=== PATIENT | female | born 1940 | race Caucasian/White ===

== ENCOUNTER 2019-08-30 12:43 | Outpatient (CLI) | payer OTHER, SELFPAY ==
--- NOTE | ~2019-08-30 | DEXA_ITS ---
Bone Density Report Name: Jing Garcias Age: 79 Sex: Female Ethnicity: White Date of : 1940 Indication: postmenopausal; height loss; prior fracture; hysterectomy; Referring Provider: SREEKANTH [facility] Study: Bone densitometry was performed. Exam Date: August 29, 2019 Accession number: [id number] Bone Density: Region BMD T-score Z-score Classification AP Spine (L1-L4) 1.060 0.1 2.7 Normal Femoral Neck (Left) 0.722 -1.1 1.1 Osteopenia Total Hip (Left) 0.938 0.0 1.9 Normal Total Hip Bilateral Avg 0.923 -0.2 1.8 Normal Femoral Neck (Right) 0.780 -0.6 1.6 Normal Total Hip (Right) 0.907 -0.3 1.7 Normal World Health Organization criteria for BMD impression classify patients as: Normal (T-score at or above -1.0), Osteopenia (T-score between -1.0 and -2.5), or Osteoporosis (T-score at or below -2.5). 10-year Fracture Risk(1): Major Osteoporotic Fracture 16% Hip Fracture 2.6% Reported Risk Factors: [place] (), Neck BMD=0.722, BMI=32.4, previous fracture (1) FRAX(R) Version 3.08. Fracture probability calculated for an untreated patient. Fracture probability may be lower if the patient has received treatment. Clinical Information Provided by Patient: Has had a low trauma fracture Has used the following medications: Vitamin D Has the following medical conditions: Hysterectomy Patient maximum height was 66 Menopause Age: 39 No regular weight bearing exercise Drinks caffeinated beverages Onset of menses at age 13 Number of children 2 Impression: The patient has low bone mass, based on the Left Femoral Neck T-score. The patient has an estimated ten-year risk of hip fracture of 2.6% and an estimated ten-year risk of major fracture of 16%, based on the WHO FRAX algorithm. The patient has risk factors, including: previous fracture. Discussion: BONE DENSITY IS LOW AT ONE OR MORE SKELETAL SITES. This patient's lowest T-score is low at one or more skeletal sites. It meets the World Health Organization's (WHO) criteria for ?low bone mass? (T-score between -1.0 and -2.5). The patient's 10-year risk of fracture as calculated by FRAX is less than the threshold where pharmacological therapy is recommended by the National Osteoporosis Foundation (NOF). However, all treatment decisions require clinical judgment and consideration of individual patient factors, including patient preferences, comorbidities, previous drug use, risk factors not captured in the FRAX model (e.g., frailty, falls, vitamin D deficiency, increased bone turnover, interval significant decline in bone density) and possible under or overestimation of fracture risk by FRAX. The patient should follow a healthful lifestyle (good nutrition with adequate calcium and vitamin D, and appropriate weight-bearing exercise). Follow-Up: Consider repeat
--- NOTE | 2019-09-02 22:40 | WPDSIXMINUTE ---
Six Minute Walk Six Minute Walk: DOS: 08/30/2019 REQUESTING: Dr. Helder Gray REASON FOR TESTING: Exertional dyspnea SIX MINUTE WALK This Test was conducted per ATS guidelines. Initial saturation was 92%. Pulse was 75. the patient was test on room air. During the walk saturation decreased to 87% transiently. Pulse ranged from 73-94 beats per minute. distance walked was 800 ft, 243 meters. The patient did not stop to rest during testing. IMPRESSION: Transient desaturation to 87% which was not sustained long enough to require supplemental oxygen. Saturation was stable at 89% and higher, indicating no need for supplemental oxygen with exertion. Distance walked is adequate for age. Clarissa Sweeney MD
== END 2019-08-30 12:44 | disposition home or self-care (01) ==
PROVIDERS: PCP Internal Medicine; Visit Provider Internal Medicine
DX: Z78.0 Asymptomatic menopausal state (principal); R06.02 Shortness of breath; M85.852 Other specified disorders of bone density and structure, left thigh
CPT/HCPCS: 77080

== ENCOUNTER 2021-01-23 19:25 | Emergency (ER) | payer OTHER, SELFPAY ==
--- NOTE | ~2021-01-23 | XR_ITS ---
EXAMINATION: XR pelvis 1-2V DATE: 01/23/2021 21:14 INDICATION: Low back pain. Fall. TECHNIQUE: An anteroposterior view of the pelvis was obtained. COMPARISON: None. FINDINGS: Bone alignment is normal. No fracture. There is moderate osteoarthritis of the hips. There is severe lumbar spondylosis. IMPRESSION: 1. Moderate osteoarthritis of the hips. Reviewed, dictated and finalized at location A.
--- NOTE | ~2021-01-23 | CT_ITS ---
EXAMINATION: CT lumbar spine wo con DATE: 01/23/2021 21:04 INDICATION: Low back injury. TECHNIQUE: Computed tomography (CT) of the lumbar spine was performed without intravenous contrast. A utomated exposure control and iterative reconstruction technique were employed. The dose-length produ ct was 1023.40 mGy-cm. COMPARISON: None FINDINGS: There is 9 degrees dextrocurvature of thoracolumbar spine. There is 4 mm anterolisthesis of L5 on S1. There is a compression fracture of L1 with less than 1/5 loss of height. There is moderate ly decreased disc height at T12-L1 severely decreased disc height at L1-L2 and L2-L3, and moderately decreased disc height at L3-L4 L4-L5, and L5-S1. The following disc levels are specifically discussed : L1-L2: The disc is bulging. There is moderate bilateral facet joint osteoarthritis. There is mild ashlee ateral neural foraminal stenosis. There is mild central canal stenosis. L2-L3: The disc is bulging. There is mild right and moderate left facet joint osteoarthritis. There i s mild bilateral neural foraminal stenosis. There is mild central canal stenosis. L3-L4: The disc is bulging. There is severe bilateral facet joint osteoarthritis. There is mild bilat eral neural foraminal stenosis. There is no central canal stenosis. L4-L5: The disc is bulging. There is severe bilateral facet joint osteoarthritis. There is mild bilat eral neural foraminal stenosis. There is mild central canal stenosis. L5-S1: The disc is bulging. There is ankylosis of the facet joints with moderate hypertrophy. There i s mild bilateral neural foraminal stenosis. There is no central canal stenosis. IMPRESSION: 1. Acute L1 compression fracture. 2. Severe lumbar spondylosis. Reviewed, dictated and finalized at location A.
--- NOTE | ~2021-01-23 | XR_ITS ---
EXAMINATION: XR sacrum coccyx min 2V DATE: 01/23/2021 21:13 INDICATION: Low back pain. TECHNIQUE: 3 views of the sacrum and coccyx were obtained. COMPARISON: None. FINDINGS: There is 4 mm anterolisthesis of L5 on S1. No fracture. There is severe lumbar spondylosis. There is moderate osteoarthritis of right sacral iliac joint and severe osteoarthritis of left sacro iliac joint. There is moderate osteoarthritis of the hips. IMPRESSION: 1. Polyarticular osteoarthritis. Reviewed, dictated and finalized at location A.
[2021-01-23 20:21] VITALS: BP 156/82; PULSE 111; RESP 18; TEMP 36.8; O2SAT 94
--- NOTE | 2021-01-23 21:10 | PC.NURSE ---
Pt to imaging via stretcher.
[2021-01-23 21:24] VITALS: BP 171/94; PULSE 109; RESP 22; O2SAT 92
--- NOTE | 2021-01-23 21:31 | ED.FALL ---
HPI - Fall General Chief Complaint: Fall Stated Complaint: fall Time Seen by Provider: 01/23/21 20:52 Source: RN notes reviewed History of Present Illness HPI Narrative: Patient presents emergency department from home for back pain. Patient states she fell yesterday at approximately 5:30 PM she states she slipped coming down onto her bottom since that time she had pain in the lower back and buttocks region she states that she did take hydrocodone once this morning and once this afternoon that she had leftover from previous surgery today for the pain which did help she states that she has been walking with a walker which she does not normally do but that has been helping as well she denies striking her head or any loss of consciousness denies any chest pain shortness of breath abdominal pain numbness or tingling in the extremities or any other symptom Related Data Allergies Allergy/AdvReac Type Severity Reaction Status Date / Time No Known Allergies Allergy Verified 01/23/21 20:27 Review of Systems Review of Systems: Narrative: Gen.: Denies fevers or chills Eyes: Denies eye pain or visual change ENT: Denies congestion Respiratory: Denies shortness of breath or cough CV: Denies chest pain or palpitations GI: Denies abdominal pain nausea, emesis or diarrhea denies burning, urgency, frequency or hematuria Musculoskeletal: See HPI Neuro: Denies numbness, tingling, weakness or focal weakness Skin: Denies rash Except as documented, all other systems reviewed and negative [facility] Past Medical History Medical History (Updated 01/23/21 @ 22:17 by Titi Valentine DO) Parkinsons disease Family History Family History Father Hypertension, Onset Age: 70 Cerebrovascular accident, Onset Age: 70 Mother Hypertension, Onset Age: 81 Cerebrovascular accident Sibling Asthma Family history of arthritis Family history of hearing loss Grandparent Family history of malignant neoplasm of breast in first degree relative Social History Social History (Updated 01/23/21 @ 21:32 by Titi Valentine DO) Smoking status: Never smoker Alcohol intake: current Gender identity (if verbalized by the patient): Female Exam Narrative: Exam Narrative: APPEARANCE: No acute distress, nontoxic, resting in bed EYES: EOMI HEENT: Normocephalic, atraumatic, OMM RESPIRATORY: No respiratory distress Clear to auscultation bilaterally with no rhonchi wheezing or rales. CARDIOVASCULAR: Regular rate and rhythm without murmurs rubs or gallops. ABDOMINAL: Soft, nontender, nondistended, no rebound or guarding MUSCULOSKELETAl: Moves all extremities. No clubbing, cyanosis or edema. Back: No midline thoracic or lumbar tenderness to palpation, tender to palpation in bilateral paravertebral muscles 3 through 5 and in coccyx region NEURO: Awake and alert. Following commands, speech normal, no focal deficits SKIN:: Warm, dry. No rashes lesions or abrasions PSYCHIATRIC: Normal affect/mood, Course Course Emergency Course: Patient given [place] in emergency department states she is feeling much better this time ready for discharge patient and are both comfortable with the patient returning home Discussed with patient results of workup and diagnosis. Discussed need for follow-up with primary care, proper use of medication, and reasons to return to the emergency department. Patient understands and agrees to current treatment plan Vital Signs Vital signs: Vital Signs Temperature 98.3 F 01/23/21 20:21 Pulse Rate 111 H 01/23/21 20:21 Respiratory Rate 18 01/23/21 20:21 Blood Pressure 156/82 H 01/23/21 20:21 Pulse Oximetry 94 01/23/21 20:21 Temperature 98.3 F 01/23/21 20: Pulse Rate 109 H 01/23/21 21:24 Respiratory Rate 22 H 01/23/21 21:24 Blood Pressure 171/94 H 01/23/21 21:24 Pulse Oximetry 94 01/23/21 22:00 MDM - Fall Imaging Data Radiologist's impr
[2021-01-23] MEDS: HYDROcodone/acetaminophen (*CRX) 5-325 MG TABLET 1 TAB PO (21:35)
[2021-01-23 22:00] VITALS: O2SAT 94
--- NOTE | 2021-01-23 22:00 | PC.NURSE ---
Pt O2 saturation dropped to 86%, resting on stretcher in no obvious distress. Pt states she wears oxygen at home when she sleeps. Pt placed on 2L NC at this time.
[2021-01-23 22:35] VITALS: BP 173/71; PULSE 103; RESP 18; O2SAT 96
== END 2021-01-23 22:35 | disposition home or self-care (01) ==
PROVIDERS: Emergency Provider Emergency Medicine; PCP Internal Medicine
DX: S32.010A Wedge compression fracture of first lumbar vertebra, initial encounter for closed fracture (principal); G20 Parkinson's disease; M47.816 Spondylosis without myelopathy or radiculopathy, lumbar region; M16.0 Bilateral primary osteoarthritis of hip; M46.1 Sacroiliitis, not elsewhere classified; W10.9XXA Fall (on) (from) unspecified stairs and steps, initial encounter
CPT/HCPCS: 72131; 72170; 72220; 99284; A9270

== ENCOUNTER 2021-03-23 10:23 | Outpatient (CLI) | payer OTHER, SELFPAY ==
[2021-03-23 11:00] VITALS: O2SAT 92
[2021-03-23 11:03] VITALS: O2SAT 87
[2021-03-23 11:05] VITALS: O2SAT 87
[2021-03-23 11:06] VITALS: O2SAT 90
[2021-03-23 11:15] VITALS: O2SAT 93
--- NOTE | 2021-03-23 12:06 | HOMEO2EVAL ---
Evaluation was performed at [facility] Home Oxygen Evaluation RC: Home Oxygen (O2) Evaluation Start: 03/23/21 11:57 Freq: Status: Active Protocol: RPE Activity Type Activity Date Activity User E-Sign Co-Sign Detail Recorded Client Recorded Date Recorded By Document 03/23/21 11:00 KEELEY [email or web address] 03/23/21 12:06 KEELEY Document 03/23/21 11:03 KEELEY [email or web address] 03/23/21 12:06 KEELEY Document 03/23/21 11:05 KEELEY [email or web address] 03/23/21 12:06 KEELEY Document 03/23/21 11:06 KEELEY [email or web address] 03/23/21 12:06 KEELEY Document 03/23/21 11:15 KEELEY [email or web address] 03/23/21 12:06 KEELEY 03/23/21 03/23/21 03/23/21 11:00 11:03 11:05 Home O2 Evaluation Test Phase Resting Exercise Exercise Oxygen Delivery Room Air Room Air Nasal Cannula Oxygen Flow Rate (L/min) 1 Pulse Oximetry (90-100 %) 92 87 L 87 L Home Oxygen Evaluation Comments Treatment Charges O2 Evaluation - Outpatient 03/23/21 03/23/21 11:06 11:15 Home O2 Evaluation Test Phase Exercise Resting Oxygen Delivery Nasal Cannula Room Air Oxygen Flow Rate (L/min) 2 Pulse Oximetry (90-100 %) 90 93 Home Oxygen Evaluation Comments PT REQUIRES 2 L WITH ACTIVITY/ EXERTION Treatment Charges O2 Evaluation - Outpatient
--- NOTE | 2021-03-23 12:07 | PCRCNOTE ---
HOME O2 EVAL DONE OUTPATIENT. FAILED 6MWT. FAXED TO OFFICE STAFF
--- NOTE | 2021-03-23 15:28 | WPDPFTINT ---
PFT Procedure Performed PFT Procedure Performed Spirometry with Pre/Post Bronchodilator Plethysmography (Lung Vol) Diffusing Cap (DLCO) Flow Vol Loop PFT Interpretation This is a pulmonary function test with pre and post-bronchodilator spirometry, plethysmography and diffusing capacity. The test was performed and results interpreted in accordance with the 2019 and 2005 ATS/ERS Task Force guidelines respectively using the Global Lung Function Initiative-2012 reference equations. Patient demonstrated good effort and cooperation. Reproducibility criteria were met. The quality of the pre bronchodilator spirometry maneuver was Grade A and post bronchodilator spirometry maneuver was Grade A. Findings: Spirometry: The contour of the expiratory flow tracing is that of a witch's hat. The contour the inspiratory flow tracing is normal. The pre bronchodilator FVC is 1.54 L, 54% predicted. The pre bronchodilator FEV1 is 1.13 L, 57% predicted. The FEV1: FVC ratio 73%. The post bronchodilator FVC is 1.51 L, representing a 2% decrease. The post bronchodilator FEV1 is 1.18 L, representing a 5% decrease. Plethysmography: The total lung capacity is 3.44 L, 67% predicted. The functional residual capacity is 2.16 L, 76% predicted. The residual volume is 1.90 L, 87% predicted. Diffusing capacity: The absolute diffusion capacity is 12.3, 60% predicted. The diffusing capacity corrected for alveolar volume is 5.26, 157% predicted. Impression: There is a moderately severe restrictive ventilatory abnormality. The spirometry is normal without evidence of an obstructive abnormality. There is no significant improvement after inhaling a single dose of albuterol. The Absolute diffusion capacity is normal and increased when corrected for alveolar volume. There are no prior studies for comparison
== END 2021-03-23 10:24 | disposition home or self-care (01) ==
PROVIDERS: PCP Internal Medicine; Visit Provider Internal Medicine Pulmonary Disease
DX: R06.02 Shortness of breath (principal); R94.2 Abnormal results of pulmonary function studies
CPT/HCPCS: 94060; 94618; 94726; 94729

== ENCOUNTER 2021-04-03 12:04 | Outpatient (CLI) | payer OTHER, SELFPAY ==
--- NOTE | ~2021-04-03 | CT_ITS ---
EXAMINATION:CT diagnostic chest wo con DATE: 04/03/2021 12:41 INDICATION: Other disorders of lung. TECHNIQUE: Computed tomography (CT) of the chest was performed without intravenous contrast. Automate d exposure control and iterative reconstruction technique were employed. The dose-length product (DLP ) was 266.38 mGy-cm. COMPARISON: Chest CT 03/20/2019, 06/18/2016 FINDINGS: There is mild emphysema. There is mild bronchiectasis in right middle lobe and lingula. A c alcified right lung nodule and calcified right hilar and mediastinal lymph nodes are consistent with old granulomatous disease. There is mild atelectasis in the inferior lungs. There is an 8 mm nodule i n right lower lobe without change, likely benign. No pleural effusion. The heart size is normal. Ther e are coronary artery calcifications. No pericardial effusion. Calcifications in the spleen are consi stent with old granulomatous disease. There are changes of cholecystectomy. 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 There is lucency around the glenoid component with subsidence, consistent wi th loosening. There is severe thoracic spondylosis. There are changes of vertebroplasty at L1. IMPRESSION: 1. Mild emphysema. 2. 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 Reviewed, dictated and finalized at location A. IMPRESSION: 1. Mild emphysema. 2. 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
== END 2021-04-03 12:05 | disposition home or self-care (01) ==
PROVIDERS: PCP Internal Medicine; Visit Provider Internal Medicine Pulmonary Disease
DX: J98.4 Other disorders of lung (principal); J43.9 Emphysema, unspecified; Z96.611 Presence of right artificial shoulder joint
CPT/HCPCS: 71250

== ENCOUNTER 2021-06-08 08:00 | Outpatient (CLI) | payer OTHER, SELFPAY ==
--- NOTE | ~2021-06-08 | NM_ITS ---
EXAMINATION: NM sonia stress w perfusion DATE: 06/08/2021 11:08 INDICATION: Abnormal electrocardiogram. Preop. TECHNIQUE: Rest images were obtained following intravenous administration of 9.9 mCi Tc99m tetrofosmi n (Myoview). The patient was infused intravenously with Lexiscan (regadenoson). Then, 30.8 mCi Tc99m tetrofosmin (Myoview) was administered intravenously, and stress images were obtained. Data was recon structed into short axis and horizontal and vertical long axis SPECT images. Gated SPECT images were also obtained. COMPARISON: Chest CT 04/03/2021 FINDINGS: There is attenuation artifact from the left arm, which is not raised. There is no definite reversible or fixed perfusion abnormality to suggest ischemia or infarction. There is no segmental w all motion abnormality. Left ventricular ejection fraction measures >70%. IMPRESSION: 1. No definite ischemia or infarct. Attenuation artifact from the left arm decreases sensitivity and specificity. 2. Normal left ventricular ejection fraction measuring >70%. Reviewed, dictated and finalized at location A. TED CIRCUIT BOARD ASSEMBLY REPAIRER IMPRESSION: 1. No definite ischemia or infarct. Attenuation artifact from the left arm decr eases sensitivity and specificity. 2. Normal left ventricular ejection fraction measuring >70%.
--- NOTE | 2021-06-08 08:27 | EST_ITS ---
Patient Info Name: Jing Garcias Age: 80 years : 1940 Gender: Female Ht: 66 in Wt: 172 lbs BSA: 1.92 m2 HR: 88 bpm BP: 158 / 112 mmHg Heart Rhythm: Sinus Rhythm Exam Date: 06/08/2021 9:29 AM Exam Location: [facility] Stress Patient Status: Outpatient Admit Date: 06/08/2021 Staff Ordering Physician: Helder Gray MD Attending Provider: Helder Gray MD Exercise Technologist: Sarah Bran CT Exercise Physician: Syed Tavarez DO Exam Type: CA stress sonia w NM Study Info Indications Z01.810 - Encounter for preprocedural cardiovascular examination A regadenoson stress test was performed. Summary 1. 1. Negative lexiscan stress test for ischemic ST changes by ECG criteria. 2. 2. Baseline hypertension. 3. 3. Nuclear scan to follow and will be reported separately. Please correlate with it. 4. 4. Patient informed of the above results. Protocol: Lexiscan Stress ECG Details Stage: REST Duration (min): 2 min : 25 sec HR (bpm): 91 SBP (mmHg): 158 DBP (mmHg): 112 Stage: REST Duration (min): 14 min : 30 sec HR (bpm): 90 SBP (mmHg): 158 DBP (mmHg): 112 Stage: STAGE 1 Duration (min): 0 min : 59 sec HR (bpm): 107 SBP (mmHg): 158 DBP (mmHg): 112 Stage: RECOVERY Duration (min): 1 min : 0 sec HR (bpm): 110 SBP (mmHg): 158 DBP (mmHg): 112 Stage: RECOVERY Duration (min): 2 min : 0 sec HR (bpm): 105 SBP (mmHg): 158 DBP (mmHg): 112 Stage: RECOVERY Duration (min): 3 min : 0 sec HR (bpm): 105 SBP (mmHg): 214 DBP (mmHg): 90 Stage: RECOVERY Duration (min): 3 min : 4 sec HR (bpm): 106 SBP (mmHg): 214 DBP (mmHg): 90 Rest HR: 90 bpm Peak HR: 115 bpm Rest Sys BP: 158 mmHg Peak Sys BP: 214 mmHg Max Pred HR: 141 bpm % Max Pred HR: 82 % Target HR: 120 bpm Max RPP: 24,610 bpm*mmHg Termination Reason: Completed protocol Cardiac Symptoms: Shortness of breath Total Time: 1 min : 0 sec Rest Mahmood BP: 112 mmHg Peak Mahmood BP: 90 mmHg Total Dose: 0.4 mg Resting ECG Sinus rhythm, first degree AV block, IRBBB. Stress ECG No ST changes. Arrhythmias None. Report Signatures
== END 2021-06-08 08:01 | disposition home or self-care (01) ==
PROVIDERS: PCP Internal Medicine; Visit Provider Internal Medicine
DX: Z01.810 Encounter for preprocedural cardiovascular examination (principal)
CPT/HCPCS: 78452; 93017; A9502; J2785

== ENCOUNTER 2021-07-21 15:37 | Outpatient (CLI) | payer OTHER, SELFPAY ==
--- NOTE | ~2021-07-21 | CT_ITS ---
EXAMINATION: CT shoulder LT wo con DATE: 07/21/2021 15:56 INDICATION: Primary osteoarthritis of the left shoulder TECHNIQUE: High resolution computed tomography (CT) of the left shoulder was performed without intrav enous contrast. Additional sagittal and coronal reconstructions were performed. Automated exposure co ntrol and iterative reconstruction technique were employed. The dose-length product was 479.95 mGy-cm . COMPARISON: Radiograph dated 04/08/2021 FINDINGS: Old healed fracture deformity at the left humeral head and neck. Severe secondary glenohumeral osteoa rthritis with remodeling and subarticular cystic change at the humeral head and glenoid and large mar ginal osteophytes along the humeral head. Mild acromioclavicular osteoarthritis. No significant gleno humeral joint effusion. No asymmetric rotator cuff muscle atrophy. Calcified mediastinal lymph nodes consistent with old granulomatous disease. No pathologically enlarged left axillary lymphadenopathy. IMPRESSION: 1. Severe secondary left glenohumeral osteoarthritis with old healed fracture deformity at the left h umeral head and neck. Reviewed, dictated and finalized at location H. FIGHTING EQUIPMENT SPECIALIST IMPRESSION: 1. Severe secondary left glenohumeral osteoarthritis with old healed fracture d eformity at the left humeral head and neck.
== END 2021-07-21 15:38 | disposition home or self-care (01) ==
LOC: ANHIMG 15:40
PROVIDERS: PCP Internal Medicine; Visit Provider Orthopaedic Surgery
DX: M19.012 Primary osteoarthritis, left shoulder (principal)
CPT/HCPCS: 73200

== ENCOUNTER → 2021-08-13 08:15 | Outpatient (CLI) | payer OTHER, SELFPAY ==
[2021-08-13 14:11] LABS: Influenza A QL RT-PCR Negative (Negative); Influenza B QL RT-PCR Negative (Negative); SARS-CoV-2 RNA PCR Negative
== END ==
PROVIDERS: PCP Internal Medicine; Visit Provider Internal Medicine
DX: Z20.822 Contact with and (suspected) exposure to COVID-19 (principal)
CPT/HCPCS: 87502; C9803; U0003; U0005

== ENCOUNTER 2021-08-27 13:53 | Outpatient (CLI) | payer OTHER, SELFPAY ==
[2021-08-27 15:18] LABS: Basophils Absolute Auto 0.1 K/mm3 (0.0-0.1); Basophils Percent Auto 0.7 % (0.2-1.2); Hematocrit 47.7 % (37.0-47.0); Immature Granulocyte Absolute 0.04 K/mm3 (0.00-0.031); Immature Granulocyte Percent A 0.4 % (0-0.5); Lymphocytes Absolute Auto 1.77 K/mm3 (0.9-3.2); Lymphocytes Percent Auto 19.5 % (18.3-44.2); Mean Corpuscular HGB Conc 31.4 g/dl (32-36); Mean Corpuscular Hemoglobin 29.1 pg (26-34); Mean Corpuscular Volume 92.6 fl (80-100); Mean Platelet Volume 9.9 fl (7.4-10.4); Monocytes Absolute Auto 0.9 K/mm3 (0.1-0.6); Monocytes Percent Auto 10.2 % (2.6-8.5); Neutrophils Absolute Auto 6.3 K/mm3 (1.3-6.7); Neutrophils Percent Auto 69.2 % (45.5-73.1); Platelet Count Result 228 k/mm3 (150-375); Red Blood Count 5.15 M/mm3 (4.2-5.4); Red Cell Distribution Width 14.6 % (11.5-14.5); White Blood Count 9.1 K/mm3 (4.5-10.0)
== END 2021-08-27 13:54 | disposition home or self-care (01) ==
PROVIDERS: PCP Internal Medicine; Visit Provider Orthopaedic Surgery
DX: Z01.812 Encounter for preprocedural laboratory examination (principal); M19.012 Primary osteoarthritis, left shoulder
CPT/HCPCS: 36415; 85025; 87081

== ENCOUNTER → 2021-09-14 03:05 | Outpatient (CLI) | payer OTHER, SELFPAY ==
[2021-09-14 17:26] LABS: SARS-CoV-2 RNA PCR Negative
== END ==
PROVIDERS: PCP Internal Medicine; Visit Provider Orthopaedic Surgery
DX: Z01.812 Encounter for preprocedural laboratory examination (principal); Z20.822 Contact with and (suspected) exposure to COVID-19
CPT/HCPCS: C9803; U0003; U0005

== ENCOUNTER 2021-09-17 20:14 | Inpatient (IN) | payer OTHER, SELFPAY ==
--- NOTE | 2021-08-27 14:05 | PC.NURSE ---
Report to the Outpatient Waiting Room, entrance under the green pavilion located off [facility], at time _0600_ on date _09/17/21_. OR Time: _0730_. - You and your visitor will be asked a series of questions to screen for COVID 19 for your protection. - A mask is required within the hospital. - NO visitors are allowed at this time. Patient visitors will be guided where to wait when not with patient. Preoperative COVID Testing Requirements: COVID TEST SCHEDULED FOR 09/14/21 @ 0830 No COVID Test needed if: (proof is required; if not received patient will have Rapid Test prior to entry) - Patient has received COVID Vaccine at least 14 days prior to procedure date or - Patient has positive COVID test result within last 90 days of surgery date. COVID Test needed if above criteria is not met If not COVID vaccinated a COVID test must be conducted within 72 hours of surgery and patient is asked to isolate self from time of testing until procedure. You will go to the [facility] for your COVID testing. The [facility] is located at the corner of [address] [facility]. You will only be called if COVID results are positive and your surgeon may reschedule your elective surgery date. Patients may have clear liquids (water, carbonated beverages, clear teas, apple juice) until 3 hours prior to surgery with a maximum of 20 ounces. (0430 AM) - No food from midnight until time of surgery - Infants may have breast milk until 4 hours before surgery, infant formula 6 hours prior to surgery. - Children will be allowed to drink immediately following surgery. If applicable, please bring a bottle or sippy cup to assist with drinking. Juice, water, soda, and popsicles are readily available. For infants on formula, please bring formula the day of surgery. Pacifiers are allowed. Take the following medications with a SIP of water the morning of surgery: _CARBIDOPA-LEVODOPA, LEVOTHYROXINE, METOPROLOL_ Medications to discontinue per ANESTHESIA - __VITAMIN D3, VITAMIN B12 - 3 DAYS PRIOR TO SURGERY_ Date to take last dose_09/13/21_ Please no make-up, nail turkish, hairspray, perfume, deodorant, or body powder the day of surgery. No jewelry (including any body piercings) or valuables the day of surgery, leave them at home. Please take a shower or bath the night before, or the morning of, surgery with an antibacterial soap. Wear comfortable, loose fitting clothing. Children are encouraged to wear pajamas. - Jewelry must be removed prior to entering the operating room. Rings and piercings that are not removed may be cut off. - The hospital will not accept responsibility for valuables. - Please leave all valuables, including medications, at home the day of surgery. If you are going home after surgery, a licensed tram driver must drive you home. - NO public transportation without another adult. - We recommend that an adult stay with you for 24 hours following discharge. - We also recommend that you do not drive, make important decision, drink alcoholic beverages, or take any drugs that were not prescribed by your health care provider for at least 24 hours after your discharge time. For Pediatric surgeries, we recommend two adults accompany the child home (only one inside the building at this time). Follow any additional instructions given to you from your surgeon. Telephone instructions given to ____PT and asked if any additional questions and then verbalized understanding. Patient advised to call surgeon office or pre surgery nurse liaison [phone] if any additional questions.
[2021-08-27 14:23] VITALS: BP 182/82; PULSE 88; RESP 20; TEMP 36.8; O2SAT 92; BMI 29.3
--- NOTE | 2021-09-16 09:40 | WPDANESEPPF ---
Anes - Initial Pre Proc Eval Procedure: Operation Date: 09/17/21 07:30 Proposed Procedures p Left Reverse Total Shoulder Arthroplasty - Ry Weinberg MD Date/Time: 09/16/21 09:40 Surgeon: Ry Weinberg MD Pre Op Diagnosis: Prim O A Left Shoulder Patient Data Age: 81 Gender: F Height: 1.63 m Weight: 77.5 kg Last Vital Signs Temp 36.8 C 08/27/21 14:23 Pulse 88 08/27/21 14:23 Resp 20 08/27/21 14:23 BP 182/82 H 08/27/21 14:23 Pulse Ox 92 08/27/21 14:23 Allergies Allergy/AdvReac Type Severity Reaction Status Date / Time No Known Allergies Allergy Verified 09/17/21 06:41 Home Medications Medication Instructions Recorded Confirmed Type cholecalciferol (vitamin D3) 25 25 mcg PO QAM 02/09/21 09/17/21 History mcg (1,000 unit) capsule mecobalamin (vitamin B12) 1,000 1,000 mcg PO QAM 02/09/21 09/17/21 History mcg chewable tablet carbidopa 25 mg-levodopa 100 mg See Rx Instructions .ROUTE 08/07/21 09/17/21 Rx tablet .COMPLEX #450 tablet levothyroxine 125 mcg QAM 08/27/21 09/17/21 History metoprolol tartrate 100 mg BID 08/27/21 09/17/21 History rosuvastatin 5 mg QAM 08/27/21 09/17/21 History azelastine 137 mcg (0.1 %) nasal 1 spray INTRANASAL Q12H #30 ml 09/14/21 09/14/21 Rx spray aerosol fluticasone propionate 50 1 - 2 spray INTRANASAL BID #16 ml 09/14/21 09/14/21 Rx mcg/actuation nasal spray,suspension Patient hx anesthesia problems: none Family hx anesthesia problems: none Results Review: All pre-operative results and documents have been reviewed as part of the pre-operative evaluation. [facility] Past Medical History Medical History (Updated 09/16/21 @ 09:42 by Francisco Yoo MD) Essential hypertension Hyperlipidemia Hypothyroidism (acquired) Parkinsons disease Restrictive lung disease Surgical History Surgical History History of back surgery History of cholecystectomy History of hysterectomy (~1984) History of kyphoplasty (~01/2021) History of left knee replacement History of right shoulder replacement History of surgery Fractured Arm (Steel Plate & 7 Screws) Family History Family History Father Hypertension, Onset Age: 70 Cerebrovascular accident, Onset Age: 70 Mother Hypertension, Onset Age: 81 Cerebrovascular accident Sibling Asthma Family history of arthritis Family history of hearing loss Grandparent Family history of malignant neoplasm of breast in first degree relative Social History Social History Smoking status: Never smoker Second hand tobacco smoke exposure: No Additional smoking assessment comments: PT DENIES ALL FORMS OF TOBACCO USE Alcohol intake: current Alcohol use details: STATES VERY RARELY - HOLIDAYS Substance use: never Substance use type: does not use Living arrangements: with family Gender identity (if verbalized by the patient): Female Spiritual care concerns: No Anes - Eval Final PreProcedure Day of Procedure 09/16/21 09:40 Patient weight: overweight Heart: regular rate and rhythm Lungs: clear to auscultation and normal air movement Airway: Mallampati scale class II Neurological: alert and oriented Last oral intake: >/= 8 hours ASA classification: III Emergent: no Anesthetic plan: proceed Anesthesia type and monitoring: general ETT Results Review: All pre-operative results and documents have been reviewed as part of the pre-operative evaluation. Informed Consent: The patient's anesthetic plan and its attendant risks and benefits were discussed with the patient/family/POA. Questions were solicited and answers provided to the satisfaction of the patient/family/POA.
--- NOTE | 2021-09-16 09:43 | WPDANESPNB ---
Anes - Peripheral Nerve Block Date/Time: 09/16/21 09:43 I have discussed with the patient/family/POA the placement of a peripheral nerve block for post-operative pain management, including associated risks, benefits, complications, and side effects. Alternative methods of post-operative analgesia were detailed. Questions were solicited and answers provided to the satisfaction of the patient/family/POA. Time-Out: A pre-procedural Time-Out was completed immediately before starting the procedure and confirmed: Patient Identification, Site, Procedure, Patient Position and the Availability of Requisite Equipment. Clinical Indications: Acute post-operative pain management requested by the operative surgeon. Nerve Block Insertion Note Anes-nerve block: supraclavicular left Patient position: supine Skin prep: chlorhexidine Needle: 22 gauge, stimulating, insulated echogenic needle. Needle length: 80 mm Technique: ultrasound (in plane) Injectate: bupivacaine 0.5% with epi 5 mcg/ml (20cc) Observations: tolerated well Complications: none Procedure start time:: 730 Procedure end time:: 735
[2021-09-17] VITALS (29 sets, daily range): BP systolic 101–157; BP diastolic 69–94; PULSE 83–116; RESP 16–38; TEMP 36–36.9; O2SAT 90–97
--- NOTE | ~2021-09-17 | XR_ITS ---
EXAMINATION: XR shoulder LT min 2V DATE: 09/17/2021 11:19 INDICATION: Left reverse total shoulder arthroplasty TECHNIQUE: AP and transscapular Y views of the left shoulder were obtained. COMPARISON: 04/08/2021 FINDINGS: Reverse left total shoulder arthroplasty which appears well seated in near-anatomic alignment. No fra cture. Contralateral right total shoulder arthroplasties seen. Hazy opacities in the bilateral lower lung zones. Bandlike opacities consistent with discoid atelectasis in the bilateral mid lung zones. N o pneumothorax. Heart size is normal. IMPRESSION: 1. Expected appearance of a reverse left total shoulder arthroplasty negative for postoperative purpo ses. 2. Opacities in bilateral lower lung zones which could represent small bilateral pleural effusions, a telectasis, pneumonia or some combination thereof. Reviewed, dictated and finalized at location A. WORKER IMPRESSION: 1. Expected appearance of a reverse left total shoulder arthroplasty negative f or postoperative purposes. 2. Opacities in bilateral lower lung zones which could represent small bilatera l pleural effusions, atelectasis, pneumonia or some combination thereof.
[2021-09-17] MEDS: ACETAMINOPHEN 500 MG TABLET 1000 MG PO (06:50)
[2021-09-17] MEDS: LACTATED RINGERS 1,000 ML 30 ML IV CONT (07:00)
--- NOTE | 2021-09-17 07:17 | WPDHPUPDATE1 ---
History and Physical Update Update Date/Time: 09/17/21 07:17 History and Physical has been reviewed, including an updated exam of the patient. There are NO changes in the patient's condition. Risks, benefits, and alternatives have been discussed and questions answered. Patient agrees to proceed with procedure.
[2021-09-17] MEDS: TRANEXAMIC ACID 1,000MG/ISO100 1,000 MG/100 ML BAG 200 MG IVPB (07:20)
[2021-09-17] MEDS: ceFAZolin 2 GM/D5W 50 ML 2 GM/50 ML BAG IVPB ×2 (07:43→16:46)
[2021-09-17] MEDS: VANCOMYCIN HCL 1,000 MG VIAL 1000 MG TOPICAL (10:06)
--- NOTE | 2021-09-17 11:09 | ECG_ITS ---
Measurements Intervals [place] Rate: 89 P: IA: 0 QRS: 51 QRSD: 116 T: -26 QT: 361 QTc: 440 Interpretive Statements ATRIAL FIBRILLATION INCOMPLETE RIGHT BUNDLE BRANCH BLOCK BORDERLINE ST-T WAVE ABNORMALITY- INFERIOR LEADS BASELINE ARTIFACT- II, III, AVR, AVF, V2, V4-V6 ABNORMAL ECG Electronically Signed On 09-17-2021 12:24:42 [employer]UBING OILER by Syed Tavarez D.O.
[2021-09-17] MEDS: ALBUTEROL SULFATE NEB 2.5 MG/0.5 ML INH INHALATION (11:10)
--- NOTE | 2021-09-17 11:49 | SUR.PHASEI ---
1115 PORTABLE XRAYS TAKEN ON LT SHOULDER IN PACU. 1122 TROPONIN DRAWN & SENT TO LAB. 12 LEAD EKG COMPLETED. 1142 DR WOODY AT BEDSIDE- REVIEWED EKG.
[2021-09-17 11:57] LABS: Troponin I < 0.012 ng/mL (0.000-0.034)
--- NOTE | 2021-09-17 13:30 | W.PM.PROC2 ---
Procedure Note - Detailed Date of Procedure 09/17/21 Pre-op Diagnosis Prim O A Left Shoulder Post-op Diagnosis same Procedure Performed Reverse total shoulder arthroplasty. Surgeon Ry Weinberg MD Manager Action Blanca Christian PA-C Anesthesia general and regional (Interscalene block.) Indications Severe pain and dysfunction of the left shoulder. Findings Severe contracture. Humeral head deformity consistent with mild surgical neck malunion. Humeral head flattening consistent with AVN. Significant sub deltoid scarring. Very large inferior osteophyte. Good glenoid bone. Minimal reaming. Description of Procedure The patient was given an interscalene block in the preoperative area. Preoperative antibiotics were given. The patient was transferred to the operating room and a general anesthetic was administered. The beach chair position was used at 45 degrees. All bony prominences were padded. The head was carefully stabilized on the [facility] baggage porter head. A sterile prep and drape was performed in the usual manner with ChloraPrep. A longitudinal incision was created at the anterior shoulder just lateral to the deltopectoral interval. Hydrogen peroxide was placed on the incision and then rinsed after one minute. Careful dissection was performed to expose the interval and protect the cephalic vein. The vein was retracted medially. The upper border of the pectoralis was released. Anterior circumflex vessel branches were suture ligated. The biceps was [tenodesed]. A subscapularis tenotomy was performed. The inferior capsule was released, exposing the humeral head. Osteophytes were removed. Care was taken to stay on bone to protect the axillary nerve. The anatomic head cut was taken with the oscillating saw. The guide pin was placed, central drilling performed, and the broach trial inserted. The neck anteversion and inclination were carefully assessed. The cut protector was placed, and attention was turned to the glenoid. Retractors were placed. Releases were carried out for exposure. The subscapularis was mobilized, the inferior capsule and long head of triceps released, and the superior and middle glenohumeral ligaments released as well. Labral tissue was resected as needed. The sizing template was used to assess the baseplate position low on the glenoid. A guide pin was placed. Minimal reaming was used to accomplish a flat surface without violating the subchondral bone. Version was corrected according to preoperative templating. The boss was drilled, and the real component was impacted into position. Supplemental locking screws were placed centrally, superiorly, and inferiorly. The glenosphere was impacted into the taper. The proximal humerus was reamed for the inset component. The humeral components were trialed. The real humeral stem, tray, and insert were impacted into position. The shoulder was copiously irrigated periodically with pulsatile lavage. The shoulder was reduced and stability confirmed. 1 gram of Vancomycin powder was placed in the joint. The biceps tenodesis was incorporated with the pectoralis tendon repair. The deltopectoral space was reapproximated with number 1 Vicryl. The remaining tissue was closed with 0 Quill and 2-0 Quill running suture and steri-strips. A sterile silver occlusive dressing and shoulder immobilizer were placed. The patient was transferred to the recovery room. Physician assistant real estate manager, Blanca Christian PA-C, required for surgery; including patient positioning, draping, tissue retraction, maintaining instrument position, [cement removal, ]wound closure, and dressing placement. Implants Shoulder [employer]ations reverse TSA size [] stem. +0 polyethylene insert. Standard baseplate. [] mm glenosphere. Drains No Pathology none sent Complications No immediate complications Condition stable Disposition PACU
--- NOTE | 2021-09-17 14:49 | SUR.PHASEI ---
6886 SPOKE WITH NURSE ROSITA SHORT WITH CARDIOLOGY PER PHONE- STATES THAT IT IS OKAY TO SEND PT TO FLOOR WITH TELEMETRY & DR DUBOSE WILL SEE PT ON THE FLOOR.
--- NOTE | 2021-09-17 15:26 | PM.CNCAR ---
Assessment and Plan Assessment and plan (1) Atrial fibrillation: Code(s): I48.91 - Unspecified atrial fibrillation <EDUARD Sánchez - Last Filed: 09/17/21 16:46> Status: Acute <EDUARD Sánchez - Last Filed: 09/17/21 16:46> Assessment and Plan: New diagnosis of atrial fibrillation. Patient was recognized to be in atrial fibrillation when placed on telemetry for her shoulder surgery earlier today. Chronicity of this is unknown, we do have evidence from EKG in June of 2021 that she was in sinus rhythm. Patient denies having any history of palpitations, shortness of breath, chest pain, dizziness that would lead me to believe that she has experienced atrial fibrillation in the past. However, she is completely asymptomatic currently so it is very possible that she has had paroxysms of atrial fibrillation that have been unrecognized. We discussed the concept of rate control versus rhythm control strategies for atrial fibrillation. Since she is already adequately rate controlled and asymptomatic we will proceed with rate control strategy. Currently rate controlled in the 90s. Continue metoprolol 100 mg p.o. b.i.d. CHADSVASc score is 4 ( female gender, hypertension, age greater than 75 years). Anticoagulation is warranted. she does have a history of parkinsonism but denies any significant fall history with this noting that she has only fallen once. Will start DOAC if okay with Ortho. has history of hypothyroidism on levothyroxine. Denies any recent dosage changes. Nevertheless, will check TSH Monitor on telemetry She had an echo in August of 2019 that Showed grade 1 diastolic dysfunction and moderate mitral annular calcification but was otherwise essentially normal. Probably do not need to repeat one now. <EDUARD Sánchez - Last Filed: 09/17/21 16:46> (2) Essential hypertension: Code(s): I10 - Essential (primary) hypertension <EDUARD Sánchez - Last Filed: 09/17/21 16:46> Status: Acute <EDUARD Sánchez - Last Filed: 09/17/21 16:46> Assessment and Plan: Generally looks to be somewhat above goal. Can add lisinopril 5 mg daily. <EDUARD Sánchez - Last Filed: 09/17/21 16:46> (3) Hyperlipidemia: Qualifiers: Hyperlipidemia type: mixed hyperlipidemia Qualified Code(s): E78.2 - Mixed hyperlipidemia <EDUARD Sánchez - Last Filed: 09/17/21 16:46> Code(s): E78.5 - Hyperlipidemia, unspecified <EDUARD Sánchez - Last Filed: 09/17/21 16:46> Status: Acute <EDUARD Sánchez - Last Filed: 09/17/21 16:46> Assessment and Plan: continue statin. <EDUARD Sánchez - Last Filed: 09/17/21 16:46> Additional Plan Attending Addendum: I have personally seen and examined this patient at bedside. I agree with the above documentation and plan of care as outlined. -Pt is a pleasant 81 yo female with h/o Parkinsons, hypothyroidism, and HTN admitted for scheduled L reverse total shoulder surgery which she tolerated well. She was noted to be in atrial fibrillation upon arrival which persists. Duration unknown, however, no prior documentation by EKG or reported history. Exam: NAD, A&Ox3, nonfocal neuro exam No JVD Lungs CTA bilaterally Cardio tachycardic, Irregularly irregular, S1/S2 Abd soft, NT/ND, +BS Ext no edema, clubbing, or cyanosis Plan of Care: -New diagnosis asymptomatic atrial fibrillation HR mildly elevated incidentally discovered perioperatively. CHADS2-Vasc 4 agree with systemic A/C for appropriate embolic CVA risk reduction with Xarelto or Eliquis when ok with Orthopedic surgery. -Check 2D Echo to assess LV function, chamber size, valve pathology and pulmonary pressures. -Telemetry overnight. -Check BMP, Mg, TSH -Increase Metoprolol to 125mg BID, up titrate further based upon overall control. -If stable and HR reasonably controlled anticipate ok for
--- NOTE | 2021-09-17 16:07 | ADMGEN ---
This patient, Jing Garcias, was admitted to Medical Room 249-01. Patient/family oriented to hospital policies and general routines including ID bracelet, bed and alarms, visiting hours, pain management, procedures, bathroom and other care routines, personal items, smoking policy, room service/diet, and visiting hours. Information on how to activate the Rapid Response Team has been discussed. Patient/Family are encouraged to report perceived risks to care and to ask questions if they do not understand what they are told or what they should do. Report received from ROB De La Vega.
[2021-09-17] MEDS: SENNA/DOCUSATE SODIUM TABLET 2 TAB PO (16:19)
[2021-09-17] MEDS: METOPROLOL TARTRATE 50 MG TAB 100 MG PO (16:19)
[2021-09-17] MEDS: CARBIDOPA/LEVODOPA 25/100 MG TABLET 1 TABLET BY MOUTH (17:00)
[2021-09-17 20:30] LABS: Anion Gap 5 mmol/L (8-16); Blood Urea Nitrogen 21 mg/dL (7-17); Calcium 9.1 mg/dL (8.4-10.2); Carbon Dioxide 25 mmol/L (22-30); Chloride 105 mmol/L (98-107); Estimated CRCL calculation 64 ml/min; Estimated Glomerular Filt Rate > 60; Glucose 227 mg/dL (65-110); Magnesium 1.8 mg/dL (1.6-2.3); Potassium 4.2 mmol/L (3.4-5.0); Sodium 135 mmol/L (137-145)
[2021-09-17] MEDS: ASPIRIN 81 MG ENTERIC TABLET PO (20:36)
[2021-09-17] MEDS: FAMOTIDINE 20 MG TABLET PO (20:36)
[2021-09-17 20:59] LABS: Thyroid Stimulating Hormone 0.341 uIU/mL (0.465-4.680)
[2021-09-18] VITALS (10 sets, daily range): BP systolic 128–153; BP diastolic 75–89; PULSE 64–102; RESP 18–20; TEMP 35.8–36.7; O2SAT 94–95
--- NOTE | 2021-09-18 | ECHO_ITS ---
Patient Info Name: Jing Garcias Age: 81 years : 1940 Gender: Female Ht: 64 in Wt: 168 lbs BSA: 1.88 m2 HR: 81 bpm BP: 128 / 81 mmHg Heart Rhythm: Atrial Fibrillation Technical Quality: Fair Exam Date: 09/18/2021 10:38 AM Exam Location: [facility] Card Pulmonary Patient Status: Inpatient Admit Date: 09/17/2021 Staff Ordering Physician: Lynn Sanchez Senior Enterprise Architect: Yanci Jeuss RDCS Attending Provider: Ry Weinberg MD Referring Physician: Laura TINOCO; Exam Type: CA echo doppler color flow Study Info Indications I48.1 - Persistent atrial fibrillation Complete two-dimensional, color flow and Doppler transthoracic echocardiogram is performed. Summary 1. Complete two-dimensional, color flow and Doppler transthoracic echocardiogram is performed. 2. Left ventricular chamber dimension is normal. 3. Left ventricular systolic function is normal, estimated at >70%. 4. There is mildly increased left ventricular wall thickness. 5. The left ventricular diastolic function is indeterminate. 6. There is no aortic valve stenosis. 7. There is trace tricuspid valve regurgitation. 8. Mild pulmonary hypertension, estimated pulmonary arterial systolic pressure is 37 mmHg. Left Ventricle Left ventricular chamber dimension is normal. Left ventricular systolic function is normal, estimated at >70%. There is mildly increased left ventricular wall thickness. The left ventricular diastolic function is indeterminate. Right Ventricle Right ventricular chamber dimension is normal. Right ventricular systolic function is normal. Left Atria Left atrial chamber dimension is mildly enlarged. Right Atria Right atrial chamber dimension is normal. Aortic Valve The aortic valve is probable trileaflet. There is mild aortic valve sclerosis. There is no aortic valve stenosis. There is trace aortic valve regurgitation. Pulmonic Valve The pulmonic valve is not well visualized. Mitral Valve The mitral valve has thickened leaflets. There is no mitral valve regurgitation. The mitral valve annulus is moderately calcified. Tricuspid Valve The tricuspid valve leaflets are normal. There is trace tricuspid valve regurgitation. Mild pulmonary hypertension, estimated pulmonary arterial systolic pressure is 37 mmHg. Pericardium/Pleural The pericardium appears normal. There is trivial pericardial effusion. Inferior Vena Cava Normal inferior vena cava with no collapse upon inspiration consistent with elevated right atrial pressure, 10 mmHg. Aorta The aortic root size at the sinus of Valsalva is normal. There is moderate aortic atherosclerosis. Left Ventricular Outflow Tract Name Value Normal LVOT 2D LVOT Diameter 2.0 cm LVOT Doppler LVOT Peak Gradient 3 mmHg LVOT Mean Gradient 2 mmHg LVOT VTI 17 cm LVOT VTI/AV VTI Ratio 0.7 LVOT Stroke Volume 54 ml LVOT CO 4.3 l/min LVOT CI 2.3 l/mi
[2021-09-18] MEDS: ceFAZolin 2 GM/D5W 50 ML 2 GM/50 ML BAG IVPB ×2 (00:37→08:15)
[2021-09-18] MEDS: CARBIDOPA/LEVODOPA 25/100 MG TABLET 2 TABLET BY MOUTH ×2 (05:57→11:24)
[2021-09-18] MEDS: LEVOTHYROXINE SODIUM 125 MCG TABLET BY MOUTH (05:57)
[2021-09-18] MEDS: polyethylene glycoL 3350 17 GM POWD.PACK PO (08:16)
[2021-09-18] MEDS: FAMOTIDINE 20 MG TABLET PO (08:17)
[2021-09-18] MEDS: SENNA/DOCUSATE SODIUM TABLET 2 TAB PO (08:17)
[2021-09-18] MEDS: METOPROLOL TARTRATE 125 MG PO (08:17)
[2021-09-18] MEDS: lisinopriL 5 MG TABLET PO (08:17)
[2021-09-18] MEDS: ASPIRIN 81 MG ENTERIC TABLET PO (08:18)
[2021-09-18] MEDS: CYANOCOBALAMIN 1,000 MCG TABLET 1000 MCG PO (08:18)
[2021-09-18] MEDS: CHOLECALCIFEROL 1,000 UNITS TABLET 1000 UNITS PO (08:18)
[2021-09-18] MEDS: ROSUVASTATIN 5 MG TABLET PO (08:18)
--- NOTE | 2021-09-18 08:36 | PM.IMCN ---
Assessment and Plan Assessment and plan (1) Status post reverse arthroplasty of left shoulder: Code(s): Z96.612 - Presence of left artificial shoulder joint Status: Acute Assessment and Plan: Pain controlled continue current treatment. (2) Hypothyroidism (acquired): Code(s): E03.9 - Hypothyroidism, unspecified Status: Acute Assessment and Plan: Patient TSH is low, will decrease thyroid dose from 125-100 and monitor TSH closely. (3) Hyperlipidemia: Qualifiers: Hyperlipidemia type: mixed hyperlipidemia Qualified Code(s): E78.2 - Mixed hyperlipidemia Code(s): E78.5 - Hyperlipidemia, unspecified Status: Acute Assessment and Plan: Stable on current medication (4) Essential hypertension: Code(s): I10 - Essential (primary) hypertension Status: Acute Assessment and Plan: Stable on current meds. (5) Paroxysmal atrial fibrillation: Code(s): I48.0 - Paroxysmal atrial fibrillation Status: Acute Assessment and Plan: Cardiology consult noted will continue metoprolol and anticoagulation. Additional Plan Thank you so much giving the opportunity to participate in the patient care Mrs. Real. Plan is to continue with metoprolol to control heart rate. Will decrease Synthroid from 125 to 100 is TSH is low monitor TSH outpatient. Parkinsonism is stable on current medication will continue current treatment. Blood pressure will monitor closely in the hospital. Will continue to follow patient in the stay in the hospital. HPI Data of Consult Consult date: 09/18/21 Requesting Physician: Ry Weinberg MD Primary Care Provider: Helder Gray MD Consult Narrative Narrative: Jing Garcias is a 81 year old female was seen in consultation for the medical management of blood pressure, parkinsonism, hypothyroidism and paroxysmal atrial fibrillation. Patient had reverse total left shoulder arthroplasty yesterday. During the surgery she was found to have atrial fibrillation and was seen by Cardiology and treat was controlled metoprolol. Her EKG in June of 2021 was normal sinus rhythm. At present patient pain is under control. She denies any shortness of breath, chest pain or palpitation. She denies any abdominal pain, nausea or vomiting. No fever or chills. Review of Systems Review of Systems: All systems reviewed & are unremarkable except as noted in HPI and below (the history and physical examination.) [facility] Past Medical History Medical History Essential hypertension Hyperlipidemia Hypothyroidism (acquired) Parkinsons disease Restrictive lung disease Surgical History Surgical History History of back surgery History of cholecystectomy History of hysterectomy (~1984) History of kyphoplasty (~01/2021) History of left knee replacement History of right shoulder replacement History of surgery Fractured Arm (Steel Plate & 7 Screws) Family History Family History Father Hypertension, Onset Age: 70 Cerebrovascular accident, Onset Age: 70 Mother Hypertension, Onset Age: 81 Cerebrovascular accident Sibling Asthma Family history of arthritis Family history of hearing loss Grandparent Family history of malignant neoplasm of breast in first degree relative Social History Social History Smoking status: Never smoker Second hand tobacco smoke exposure: No Alcohol intake: never Alcohol use details: STATES VERY RARELY - [place] Substance use: never Substance use type: does not use Living arrangements: with family Gender identity (if verbalized by the patient): Female Spiritual care concerns: No Meds Home Medications and Allergies Home Medications Medication Instructions Recor
--- NOTE | 2021-09-18 10:42 | PM.PNCARD ---
Progress Note: A&P Assessment and Plan (1) Atrial fibrillation: Code(s): I48.91 - Unspecified atrial fibrillation Status: Acute Assessment and Plan: New diagnosis of atrial fibrillation. Patient was recognized to be in atrial fibrillation when placed on telemetry for her shoulder surgery earlier today. Chronicity of this is unknown, we do have evidence from EKG in June of 2021 that she was in sinus rhythm. Patient denies having any history of palpitations, shortness of breath, chest pain, dizziness that would lead me to believe that she has experienced atrial fibrillation in the past. However, she is completely asymptomatic currently so it is very possible that she has had paroxysms of atrial fibrillation that have been unrecognized. We discussed the concept of rate control versus rhythm control strategies for atrial fibrillation. Since she is already adequately rate controlled and asymptomatic we will proceed with rate control strategy. Currently rate controlled in the 90s. Continue metoprolol increase to 125 mg p.o. b.i.d. Tolerating well. CHADSVASc score is 4 ( female gender, hypertension, age greater than 75 years). Anticoagulation is warranted. she does have a history of parkinsonism but denies any significant fall history with this noting that she has only fallen once. Will start DOAC if okay with Ortho. has history of hypothyroidism on levothyroxine. TSH low, dosing adjusted by Medicine. Orthopedic surgery indicated we may initiate systemic anticoagulation. Will initiate Xarelto 20 mg at bedtime. Care coordination to rod prior to discharge. Discontinue aspirin upon initiation of Xarelto to reduce bleeding risk. Will review 2D echocardiogram when available prior to discharge. Patient stable from a cardiac perspective for discharge home later today. Disposition per primary service. Follow up as an outpatient in the office in 1 month. (2) Essential hypertension: Code(s): I10 - Essential (primary) hypertension Status: Acute Assessment and Plan: Generally looks to be somewhat above goal. continue lisinopril 5 mg daily. caution to avoid symptomatic hypotension to reduce risk for falls. (3) Hyperlipidemia: Qualifiers: Hyperlipidemia type: mixed hyperlipidemia Qualified Code(s): E78.2 - Mixed hyperlipidemia Code(s): E78.5 - Hyperlipidemia, unspecified Status: Acute Assessment and Plan: Continue statin. Subjective Date/time seen: Date of service: 09/18/21 10:42 Follow-up for new diagnosis atrial fibrillation no new issues overnight. Heart rate reasonably controlled. Tolerating medications. Denies chest pain, palpitations shortness of breath. Pain control. Review of Systems Constitutional: Constitutional: Reports difficulty sleeping, Denies excessive sweating, Denies fatigue, Denies headache(s) and Denies weakness Eyes: Eyes: Denies change in vision ENT: Denies headache(s), Reports hearing loss and Denies lip swelling Cardiovascular: Cardiovascular: Denies chest pain, Denies pedal edema, Denies leg edema, Denies lightheadedness, Denies palpitations, Denies dyspnea and Reports dyspnea on exertion Respiratory: Respiratory: Denies dyspnea and Reports dyspnea on exertion Gastrointestinal: Gastrointestinal: Denies melena and Denies hematochezia Genitourinary: Genitourinary: Denies hematuria and Denies dysuria Musculoskeletal: Musculoskeletal: Denies abnormal gait, Reports arthralgias, Reports joint swelling and Denies numbness Integumentary/Breasts: Skin/Breast: Denies unusual bruising Neurologic: Denies Abnormal speech present, Denies abnormal gait, Denies confusion, Denies headache(s), Denies numbness and Denies weakness Psychiatric: Psychiatric: Denies anxiety, Denies confusion and Denies depression Endocrine: Endocrine: Denies excessive sweating, Denies fatigue, Denies flushing and Denies palpitations Hematologic/Lymphati
--- NOTE | 2021-09-18 10:43 | PM.PNORT ---
Progress Note: A&P Assessment and Plan (1) Status post reverse arthroplasty of left shoulder: Code(s): Z96.612 - Presence of left artificial shoulder joint Status: Acute (2) Atrial fibrillation: Code(s): I48.91 - Unspecified atrial fibrillation Status: Acute Assessment and Plan: Postop day 1: Left reverse total shoulder. Patient tolerated procedure well. Pain manageable with pain medication. No numbness or tingling. She was found to have a.fib. She may start anticoagulation per cardiology. Appreciate cardiology and hospitalist consults. Subjective Subjective Date/Time Seen: 09/18/21 10:43 Patient resting comfortably in bed. Pain controlled. No other complaints. Review of Systems Review of Systems: All systems reviewed & are unremarkable except as noted in HPI and below Exam Narrative: Overweight elderly Female. Resting comfortably in chair. Wearing sling. Dressing dry and intact with no drainage. Moderate swelling. Moderate ecchymosis. No erythema. No hematoma. Range of motion limited due to pain. Calf nontender. Neurologic status intact. No varicosities. Distal pulses palpable. Objective Data Vital Signs Vital Signs: Vital Signs - 24 hr 09/17/21 11:00 09/17/21 11:15 09/17/21 11:24 Temperature 96.8 F L Pulse Rate 98 93 96 Respiratory Rate 20 22 H 38 H Blood Pressure 152/87 H 149/94 H Pulse Oximetry 90 92 94 09/17/21 11:30 09/17/21 11:45 09/17/21 12:00 Temperature Pulse Rate 87 90 89 Respiratory Rate 24 H 24 H 24 H Blood Pressure 155/76 H 146/82 H 141/78 H Pulse Oximetry 96 96 97 09/17/21 12:15 09/17/21 12:30 09/17/21 12:45 Temperature 96.9 F L Pulse Rate 96 93 89 Respiratory Rate 22 H 16 18 Blood Pressure 147/84 H 148/76 H 145/85 H Pulse Oximetry 97 92 91 09/17/21 13:00 09/17/21 13:15 09/17/21 13:30 Temperature Pulse Rate 93 97 99 Respiratory Rate 20 22 H 29 H Blood Pressure 148/76 H 153/77 H 157/86 H Pulse Oximetry 91 90 90 09/17/21 13:45 09/17/21 14:00 09/17/21 14:15 Temperature Pulse Rate 98 93 101 H Respiratory Rate 20 22 H 24 H Blood Pressure 140/69 144/72 H 156/86 H Pulse Oximetry 91 91 91 09/17/21 14:30 09/17/21 14:45 09/17/21 15:00 Temperature Pulse Rate 91 98 104 H Respiratory Rate 24 H 22 H 24 H Blood Pressure 101/80 139/89 152/91 H Pulse Oximetry 91 91 90 09/17/21 15:15 09/17/21 15:30 09/17/21 15:45 Temperature 98.4 F 97.9 F Pulse Rate 105 H 105 H 100 Respiratory Rate 24 H 16 16 Blood Pressure 152/89 H 149/81 H 157/89 H Pulse Oximetry 91 94 93 09/17/21 16:15 09/17/21 16:19 09/17/21 16:36 Temperature 97.9 F Pulse Rate 106 H 104 H 104 H Respiratory Rate 16 16 Blood Pressure 154/73 H Pulse Oximetry 93 93 09/17/21 16:58 09/17/21 17:15 09/17/21 19:52 Temperature 97.6 F 96.8 F L Pulse Rate 116 H 99 99 Respiratory Rate 16 20 Blood Pressure 139/86 135/78 Pulse Oximetry 91 95 09/17/21 20:00 09/18/21 00:00 09/18/21 00:19 Temperature 96.4 F L Pulse Rate 83 64 78 Respiratory Rate 20 Blood Pressure 150/89 H Pulse Oximetry 94 09/18/21 04:00 09/18/21 04:26 09/18/21 04:45 Temperature 96.8 F L Pulse Rate 69 75 Respiratory Rate 18 Blood Pressure 128/81 Pulse Oximetry 94 94 09/18/21 08:17 09/18/21 08:30 09/18/21 10:00 Temperature 98.0 F Pulse Rate 102 H 69 Respiratory Rate 20 Blood Pressure 153/75 H Pulse Oximetry 94 95 Intake/Output Intake/Output: Intake & Output 09/15/21 09/16/21 09/17/21 09/18/21 23:59 23:59 23:59 23:59 Intake Total 940 580 Balance 940 580 Meds/Results Medications: Active Medications Generic Name Dose Route Start Last Admin Trade Name Freq PRN Reason Stop Dose Admin Acetaminophen 650 mg 09/17/21 15:20 Acetaminophen 325 Mg Tablet PO Q6H PRN Pain Rated 1-3 Carbidopa/Levodopa 2 tablet 09/18/21 06:00 09/18/21 05:57 Carbidopa/Levodopa 25/100 Mg Tablet BY MOUTH 2 tablet 0600
--- NOTE | 2021-09-18 13:21 | PM.DS ---
DS: Admitting Diagnosis Discharge Date 09/18/21 Admitting Diagnosis Glenohumeral joint osteoarthritis DS: Discharge Diagnosis Discharge Diagnosis (1) Status post reverse arthroplasty of left shoulder: Code(s): Z96.612 - Presence of left artificial shoulder joint Status: Acute (2) Paroxysmal atrial fibrillation: Code(s): I48.0 - Paroxysmal atrial fibrillation Status: Acute Assessment and Plan: Postop day 1: Left Reverse total shoulder. Patient tolerated procedure well. Was found to have paroxysmal asymptomatic a.fib. Started on Xarelto and will follow up with cardiology. Pain manageable with pain medication. No numbness or tingling. Will be discharged with home health. We had a lengthy discussion regarding postoperative wound care, limitations, expectations, and exercises. Patient shows good understanding. She has had initial physical therapy and is tolerating it well. DVT prophylaxis: Xarelto Pain medication: Percocet Patient has followup appointment with Dr. Weinberg in 3 weeks. DS: Summary Hospital Course Hospital Course: Right reverse total shoulder arthroplasty. Patient has had initial physical therapy and occupational therapy. Status at Discharge Functional status at discharge: independent ambulation Overall status at discharge: patient is progressing back to baseline Time Spent with Patient Time attestation: Total time spent providing and/or coordinating discharge services: Exam Narrative: Overweight elderly Female. Resting comfortably in chair. Wearing sling. Dressing dry and intact with no drainage. Moderate swelling. No ecchymosis. No erythema. No hematoma. Range of motion limited due to pain. Calf nontender. Neurologic status intact. No varicosities. Distal pulses palpable. DS: Data Data Completed and Pending Labs on day of discharge: Labs from last 24 hours 09/17/21 19:39 Sodium 135 L Potassium 4.2 Chloride 105 Carbon Dioxide 25 Anion Gap 5 L BUN 21 H Creatinine 0.60 L Estim Creat Clear Calc 64 Estimated GFR > 60 Glucose 227 H Calcium 9.1 Magnesium 1.8 TSH 0.341 L Discharge Plan Discharge Attending physician on discharge: Ry Weinberg Consulting providers: Gadiel Vazquez ; Prabhakar Kent Discharging Clinician: Blanca Christian Anticipated Discharge Date/Time: 09/18/21 13:14 Patient Disposition: Home Health Service Discharge Instructions: Per Care Coordination,patient to discharge with [facility] ([phone]) for PT/OT/Shelter. See green instructions sheet. Patient Instructions: Antibiotic Form, Pain Management in Older Adults (DC), Joint Replacement Surgery (DC), Shoulder Arthroplasty (DC) Stand Alone Forms: General Discharge Information, General Discharge Instructions Follow-up/Referrals: Blanca Christian PA [Physician Filtration Plant Operator] - Lynn Sanchez APN-C [Advanced Practice Nurse] - (He have an appointment on 10/14/2021 at 11:30 a.m.. Please arrive at 11:15 a.m.. Thank you.) Discharge Medications: New oxycodone-acetaminophen 5-325 mg tablet 1 - 2 tablet PO Q4-6H MDD 6 PRN (Reason: pain) Qty: 30 RF: 0 Xarelto 20 mg Tablet 20 mg PO DAILY@1700 30 Days Qty: 30 RF: 0 Continued fluticasone propionate [Flonase Allergy Relief] 50 mcg/actuation spray,suspension 1 - 2 spray intranasal BID Qty: 16 RF: 3 azelastine 137 mcg (0.1 %) aerosol,spray 1 spray intranasal Q12H Qty: 30 RF: 3 metoprolol tartrate 100 mg tablet 100 mg BID RF: 0 levothyroxine 125 mcg tablet 125 mcg QAM RF: 0 rosuvastatin 5 mg tablet 5 mg QAM RF: 0 cholecalciferol (vitamin D3) 25 mcg (1,000 unit) capsule 25 mcg PO QAM RF: 0 mecobalamin (vitamin B12) 1,000 mcg tablet,chewable 1,000 mcg PO QAM RF: 0 carbidopa-levodopa 25-100 mg tablet See Rx Instructions .ROUTE .COMPLEX Qty: 450 RF: 1 Date of admission: 09/17/21 20:14 Primary C
== END 2021-09-18 14:45 | disposition home health service (06) | DRG 483 ==
LOC: ANHSURGERY 22:01 → ANH2MED 22:01
PROVIDERS: Anesthesiology; Nurse Practitioner; Admitting Provider Orthopaedic Surgery; PCP Internal Medicine; Visit Provider Orthopaedic Surgery
PROC: 0RRK00Z Replacement of Left Shoulder Joint with Reverse Ball and Socket Synthetic Substitute, Open Approach (ICD-10-PCS; CPT 23472; principal; 2021-09-17 07:30)
DX: M19.012 Primary osteoarthritis, left shoulder (principal); I48.0 Paroxysmal atrial fibrillation; I10 Essential (primary) hypertension; E78.5 Hyperlipidemia, unspecified; E03.9 Hypothyroidism, unspecified; G20 Parkinson's disease; J98.4 Other disorders of lung; Z96.611 Presence of right artificial shoulder joint; Z96.652 Presence of left artificial knee joint; Z90.49 Acquired absence of other specified parts of digestive tract; Z90.710 Acquired absence of both cervix and uterus
CPT/HCPCS: 36415; 73030; 80048; 83735; 84443; 84484; 85025; 86850; 86900; 86901; 87081; 93005; 93306; 97110; 97116; 97161; 97165; 97530; A4565; A9270; C9803; J0131; J0171; J0330; J0690; J1100; J1885; J2270; J2405; J2704; J2795; J3010; J3370; J7120; U0003; U0005

== ENCOUNTER 2022-06-16 19:22 | Emergency (ER) | payer OTHER, SELFPAY ==
[2022-06-16 19:36] VITALS: BP 104/73; PULSE 83; RESP 18; TEMP 36.6; O2SAT 95
[2022-06-16 20:11] LABS: Basophils Absolute Auto 0.1 K/mm3 (0.0-0.1); Basophils Percent Auto 0.6 % (0.2-1.2); Hematocrit 50.4 % (37.0-47.0); Immature Granulocyte Absolute 0.03 K/mm3 (0.00-0.031); Immature Granulocyte Percent A 0.4 % (0-0.5); Lymphocytes Absolute Auto 1.43 K/mm3 (0.9-3.2); Lymphocytes Percent Auto 17.2 % (18.3-44.2); Mean Corpuscular HGB Conc 31.7 g/dl (32-36); Mean Corpuscular Volume 91.5 fl (80-100); Mean Platelet Volume 9.5 fl (7.4-10.4); Monocytes Absolute Auto 0.7 K/mm3 (0.1-0.6); Monocytes Percent Auto 8.8 % (2.6-8.5); Neutrophils Absolute Auto 6.1 K/mm3 (1.3-6.7); Platelet Count Result 260 k/mm3 (150-375); Red Blood Count 5.51 M/mm3 (4.2-5.4); White Blood Count 8.3 K/mm3 (4.5-10.0)
[2022-06-16 20:21] LABS: Alanine Aminotransferase 6 U/L (6-35); Albumin Level 4.5 g/dL (3.5-5.1); Alkaline Phosphatase 87 U/L (38-126); Anion Gap 10 mmol/L (8-16); Aspartate Amino Transferase 22 U/L (14-36); Bilirubin,Total 1.1 mg/dL (0.2-1.3); Blood Urea Nitrogen 19 mg/dL (7-17); Calcium 9.2 mg/dL (8.4-10.2); Carbon Dioxide 30 mmol/L (22-30); Chloride 97 mmol/L (98-107); Estimated CRCL calculation 62 ml/min; Estimated Glomerular Filt Rate > 60; Glucose 103 mg/dL (65-110); Lipase 97 U/L (23-300); Potassium 4.4 mmol/L (3.4-5.0); Sodium 137 mmol/L (137-145)
--- NOTE | 2022-06-16 21:44 | PC.NURSE ---
and pt walked to desk announcing they are leaving due to the wait
== END 2022-06-16 20:05 | disposition left against medical advice (07) ==
PROVIDERS: Emergency Provider Emergency Medicine; PCP Internal Medicine
DX: R10.9 Unspecified abdominal pain (principal)
CPT/HCPCS: 36415; 80053; 83690; 85025; 99199

== ENCOUNTER 2022-06-17 07:19 | Emergency (ER) | payer OTHER, SELFPAY ==
[2022-06-17] VITALS (8 sets, daily range): BP systolic 149–162; BP diastolic 79–97; PULSE 91–108; RESP 14–27; TEMP 36.5; O2SAT 90–95
--- NOTE | ~2022-06-17 | XR_ITS ---
EXAMINATION: XR abdomen/kub 1V DATE: 06/17/2022 08:08 INDICATION: Left lower quadrant abdominal pain. TECHNIQUE: A supine view of the abdomen on 2 radiographs was obtained. COMPARISON: CT abdomen and pelvis 06/14/2016 FINDINGS: There are no dilated loops of bowel. There is a small volume of stool in the colon. There a re phleboliths in the pelvis. Surgical clips in the right upper quadrant are likely from cholecystect clarice. There are changes of vertebroplasty in L1. IMPRESSION: 1. Normal bowel gas pattern. Reviewed, dictated and finalized at location A. FACTURING TEST ENGINEER
--- NOTE | ~2022-06-17 | CT_ITS ---
EXAMINATION: CT abdomen pelvis w con DATE: 06/17/2022 08:39 INDICATION: Abdominal pain. TECHNIQUE: Computed tomography (CT) of the abdomen and pelvis was performed with 100 mL Omnipaque 350 intravenous contrast. Automated exposure control and iterative reconstruction technique were employe d. The dose-length product was 559.14 mGy-cm. COMPARISON: CT abdomen and pelvis 06/14/2016, chest CT 04/03/2021 FINDINGS: The visualized portions of the lung bases demonstrate emphysema and mild atelectasis. There is an 8 mm nodule in right lower lobe, stable from 04/03/2021, likely benign. No pleural effusion. Car diomegaly is noted. No pericardial effusion. There are calcifications of the aortic valve. There are coronary artery calcifications. The liver is normal. There are changes of cholecystectomy. Calcificat ions in the spleen are consistent with old granulomatous disease. The pancreas and adrenal glands are normal. There are cysts in the kidneys measuring up to 9 mm on the right. There is a 2 mm stone in r ight kidney. There are 2 mm and 3 mm stones in left kidney. There are scattered diverticula in the co rafa. There is fat stranding in the greater omentum, likely edema. There are no dilated loops of bowel . The appendix is not visualized. There are no pathologically enlarged lymph nodes. There is physiolo gic fluid in the pelvis. There is severe lumbar spondylosis. There are changes of vertebroplasty at L 1. IMPRESSION: 1. No specific etiology for the patient's symptoms. Reviewed, dictated and finalized at location A. GER TRANSFUSION
--- NOTE | 2022-06-17 07:42 | ED.ABDPAIN ---
HPI - Abdominal Pain General Chief Complaint: Abdominal Pain Stated Complaint: abd pain Time Seen by Provider: 06/17/22 07:23 Source: patient and family Limitations: no limitations History of Present Illness HPI narrative: 81 years old white female came from home with her complaining of left lower quadrant pain started 3 days ago, intermittent, today constant, no radiation, aggravated with eating, resolves with not eating history of hysterectomy and cholecystectomy Related Data Home Medications Medication Instructions Recorded Confirmed cholecalciferol (vitamin D3) 25 25 mcg PO QAM 02/09/21 04/23/22 mcg (1,000 unit) capsule mecobalamin (vitamin B12) 1,000 1,000 mcg PO QAM 02/09/21 04/23/22 mcg chewable tablet docusate sodium 100 mg capsule 100 mg PO DAILY 10/20/21 04/23/22 (Stool Softener) acyclovir 800 mg tablet 800 mg PO DAILY 04/23/22 04/23/22 amlodipine 5 mg tablet 5 mg PO DAILY 04/23/22 04/23/22 Allergies Allergy/AdvReac Type Severity Reaction Status Date / Time No Known Allergies Allergy Verified 06/17/22 07:20 Review of Systems Review of Systems: All systems reviewed & are unremarkable except as noted in HPI and below PMFSH Past Medical History Medical History Essential hypertension Hyperlipidemia Hypothyroidism (acquired) Parkinsons disease Restrictive lung disease Surgical History Surgical History History of back surgery History of cholecystectomy History of hysterectomy (~1984) History of kyphoplasty (~01/2021) History of left knee replacement History of left shoulder replacement (~09/17/21) History of right shoulder replacement History of surgery Fractured Arm (Steel Plate & 7 Screws) Family History Family History Father Hypertension, Onset Age: 70 Cerebrovascular accident, Onset Age: 70 Mother Hypertension, Onset Age: 81 Cerebrovascular accident Sibling Asthma Family history of arthritis Family history of hearing loss Grandparent Family history of malignant neoplasm of breast in first degree relative Social History Social History Smoking status: Never smoker Second hand tobacco smoke exposure: No Alcohol intake: never Alcohol use details: STATES VERY RARELY - H[place]IDA[place] Substance use: never Substance use type: does not use Gender identity (if verbalized by the patient): Female Spiritual care concerns: No Exam Narrative: General appearance: Well-developed, well-nourished Skin: Normal color Head: Normocephalic, nontraumatic Eyes: Clear conjunctiva ENT: Oropharynx normal, ears normal, nose normal Neck: Supple, nontender Chest and respiratory: Airway patent, no respiratory distress, no accessory muscle use Heart: Regular rate/rhythm Abdomen: Soft, mild left lower quadrant tenderness, no guarding or rebound, no organomegaly, quiet bowel sounds Vascular: Normal peripheral pulses, normal capillary refill. Musculoskeletal: Normal range of motion, nontender back Neurologic: Alert and oriented ?3, STRIPPER LATEX is normal as tested, no gross motor deficit Course Vital Signs Vital signs: Vital Signs Pulse Rate 102 H 06/17/22 07:27 Temperature 36.5 C 06/17/22 07:47 Pulse Rate 108 H 06/17/22 08:15 Respiratory Rate 27 H 06/17/22 08:15 Blood Pressure 159/79 H 06/17/22 07:47 Pulse Oximetry 91 06/17/22 08:15 Oxygen Delivery Room Air 06/17/22 07:47 MDM - Abdominal Pain Differential Diagnosis Differential diagnosis: Likely abdomina
[2022-06-17 08:03] LABS: Add Urine Microscopic? YES; Appearance Urine Slightly Cloudy (Clear); Bilirubin Urine 2+ (Negative); Blood Urine Negative (Negative); Color Urine Yellow (Yellow); Glucose Urine UA Negative (Negative); Ketones Urine 1+ mg/dL (Negative); Leukocyte Esterase Ur Negative LEU/UL (Negative); Nitrate Urine Negative (Negative); Protein Urine 2+ mg/dL (Negative); Specific Grav Ur >= 1.030 (1.001-1.035)
[2022-06-17 08:05] LABS: Alanine Aminotransferase 10 U/L (6-35); Albumin Level 4.6 g/dL (3.5-5.1); Alkaline Phosphatase 74 U/L (38-126); Anion Gap 15 mmol/L (8-16); Aspartate Amino Transferase 33 U/L (14-36); Bilirubin,Total 1.5 mg/dL (0.2-1.3); Blood Urea Nitrogen 17 mg/dL (7-17); Calcium 9.5 mg/dL (8.4-10.2); Carbon Dioxide 28 mmol/L (22-30); Chloride 97 mmol/L (98-107); Estimated CRCL calculation 61 ml/min; Estimated Glomerular Filt Rate > 60; Glucose 147 mg/dL (65-110); Lipase 90 U/L (23-300); Potassium 4.5 mmol/L (3.4-5.0); Sodium 140 mmol/L (137-145)
[2022-06-17 08:08] LABS: Basophils Absolute Auto 0.1 K/mm3 (0.0-0.1); Basophils Percent Auto 0.8 % (0.2-1.2); Eosinophils Absolute Auto 0.2 K/mm3 (0-0.3); Eosinophils Percent Auto 2.5 % (0-4.4); Hematocrit 50.1 % (37.0-47.0); Hemoglobin 16.4 g/dL (12.0-15.0); Immature Granulocyte Absolute 0.02 K/mm3 (0.00-0.031); Immature Granulocyte Percent A 0.3 % (0-0.5); Lymphocytes Absolute Auto 1.12 K/mm3 (0.9-3.2); Lymphocytes Percent Auto 14.5 % (18.3-44.2); Mean Corpuscular HGB Conc 32.7 g/dl (32-36); Mean Corpuscular Hemoglobin 28.9 pg (26-34); Mean Corpuscular Volume 88.4 fl (80-100); Mean Platelet Volume 10.1 fl (7.4-10.4); Monocytes Absolute Auto 0.5 K/mm3 (0.1-0.6); Neutrophils Absolute Auto 5.8 K/mm3 (1.3-6.7); Neutrophils Percent Auto 74.9 % (45.5-73.1); Platelet Count Result 271 k/mm3 (150-375); Red Blood Count 5.67 M/mm3 (4.2-5.4); Red Cell Distribution Width 15.3 % (11.5-14.5); White Blood Count 7.7 K/mm3 (4.5-10.0)
[2022-06-17 08:14] LABS: Bacteria Urine Trace /hpf; Calcium Oxalate Crystals Urine Many /hpf; Mucus Urine Rare /lpf; RBC Urine 21-50 /hpf (0-2); Squamous Epithelial Cell Urine Many /hpf (Few)
[2022-06-17] MEDS: SODIUM CHLORIDE 0.9% IV 1,000 ML 999 ML IV CONT (08:26)
[2022-06-17 08:44] LABS: Lactic Acid Reflex 1.7 mmol/L (0.7-2.0)
== END 2022-06-17 10:09 | disposition home or self-care (01) ==
PROVIDERS: Emergency Provider Emergency Medicine; PCP Internal Medicine
DX: R10.32 Left lower quadrant pain (principal); R31.9 Hematuria, unspecified; I10 Essential (primary) hypertension; E78.5 Hyperlipidemia, unspecified; E03.9 Hypothyroidism, unspecified; G20 Parkinson's disease
CPT/HCPCS: 36415; 74018; 74177; 80053; 81001; 83605; 83690; 85025; 87086; 87088; 96360; 99284; J7030; Q9967

== ENCOUNTER 2022-08-17 06:52 | Outpatient (CLI) | payer OTHER, SELFPAY ==
--- NOTE | ~2022-08-17 | XR_ITS ---
XR shoulder RT min 2V DATE: 08/17/2022 07:25 INDICATION: Artificial shoulder joint TECHNIQUE: 4 views of right shoulder COMPARISON: 04/20/2021 CT chest FINDINGS: There is diffuse osteopenia. Status post right glenohumeral joint replacement. There is chronic prominent deepening, widening and sclerosis of the glenoid fossa of the scapula, als o present on 04/03/2021 CT chest examination. There is particularly severe thinning of the cortex of the right humeral head, neck and proximal vijay ral shaft. No recent fracture or dislocation is detected. IMPRESSION: Status post right glenohumeral joint replacement Chronic sclerosis and deformity of the glenoid area of the scapula Very prominent thinning of the cortex of the right humeral head, neck and proximal shaft Osteopenia Reviewed, dictated and finalized at location L. REFRIGERATION TECHNICIAN IMPRESSION: Status post right glenohumeral joint replacement Chronic sclerosis and deformity of the glenoid area of the scapula Very prominent thinning of the cortex of the right humeral head, neck and proxi mal shaft Osteopenia
== END 2022-08-17 06:53 | disposition home or self-care (01) ==
LOC: ANHIMG 06:58
PROVIDERS: PCP Internal Medicine; Visit Provider Nurse Practitioner
DX: M85.821 Other specified disorders of bone density and structure, right upper arm (principal); Z96.611 Presence of right artificial shoulder joint; R93.6 Abnormal findings on diagnostic imaging of limbs
CPT/HCPCS: 73030

== ENCOUNTER 2023-03-02 09:51 | Outpatient (CLI) | payer OTHER, SELFPAY ==
--- NOTE | 2023-03-02 13:55 | WPDSIXMINUTE ---
Six Minute Walk Procedure Procedure Performed Pulmonary Stress Test (6 min walk) Six Minute Walk Six Minute Walk: This is a 6 minute walk test. The test was performed and interpreted in accordance with the 2014 ERS/ATS task force guidelines. Of note the patient performed the test with a walking aid Findings: The patient's resting room air oxygen saturation measured by pulse oximetry was 94% and heart rate was 64 bpm. Patient ambulated for 122 meters and oxygen saturation remained 90 to 93%. Heart rate at the end of the study was 88 bpm. The patient did not qualify for supplemental oxygen at rest or with ambulation. There are no prior studies for comparison.
--- NOTE | 2023-03-02 13:56 | WPDPFTINT ---
PFT Procedure Performed PFT Procedure Performed Spirometry with Pre/Post Bronchodilator Plethysmography (Lung Vol) Diffusing Cap (DLCO) Flow Vol Loop PFT Interpretation This is a pulmonary function test with pre and post-bronchodilator spirometry, plethysmography and diffusing capacity. The test was performed and results interpreted in accordance with the 2019 and 2005 ATS/ERS Task Force guidelines respectively using the Global Lung Function Initiative-2012 reference equations. Patient demonstrated good effort and cooperation. Reproducibility criteria were met. The quality of the pre bronchodilator spirometry maneuver was Grade A and post bronchodilator spirometry maneuver was Grade A. I spoke with the bindery technician and the patient required coaching to complete the spirometry and the remainder of the test the patient did well and there were no technical issues measuring the lung volumes. Findings: Spirometry: The contour the inspiratory and expiratory flow tracing are normal. The pre bronchodilator FVC is 1.46 L, 56% predicted. The pre bronchodilator FEV1 is 1.03 L, 52% predicted. The pre bronchodilator FEV1: FVC ratio 70%. The post bronchodilator FVC is 1.31 L, representing an 11% decrease. The post bronchodilator FEV1 is 1.00 L, representing a 3% decrease. The post bronchodilator FEV1: FVC ratio 76%. Plethysmography: The total lung capacity 7.08 L, 136% predicted. The functional residual capacity is 5.89 L, 196% predicted. The residual volume is 5.61 L, 228% predicted. Diffusing capacity: The diffusing capacity unadjusted for hemoglobin and carboxyhemoglobin is 12.5, 63% predicted. The diffusing capacity adjusted for alveolar volume is 5.71, 140% predicted. In comparison to previous pulmonary function testing on 03/23/2021 the post bronchodilator FVC is unchanged from 1.51 L to 1.31 L. The post bronchodilator FEV1 is decreased from 1.18 L to 1.00 L. The total lung capacity has increased from 3.44 L to 7.08 L. The functional residual capacity is increased from 2.16 L to 5.89 L. The residual volume has increased from 1.90 L to 5.61 L. The diffusing capacity unadjusted for hemoglobin and carboxyhemoglobin is unchanged from 12.3 to 12.5. The diffusing capacity adjusted for alveolar volume is unchanged from 5.26 to 5.71. Impression: The spirometry is normal without evidence of an obstructive abnormality. The lung volumes are increased without evidence of a restrictive abnormality. The FVC and FEV1 are moderately severely decreased without an obstructive or restrictive abnormality. This is an abnormal but nonspecific finding. There is no significant improvement after inhaling a single dose of albuterol. The total lung capacity, functional residual capacity and residual volume are increased with an increased residual volume: TLC ratio. The diffusing capacity unadjusted for hemoglobin and carboxyhemoglobin ismildly decreased and increased when adjusted for alveolar volume. In comparison to previous pulmonary function testing on 03/23/2021 there has been a greater than anticipated time dependent increase in the total lung capacity, residual volume and functional residual capacity with a greater than anticipated time dependent decrease in the FEV1 with no significant change in the FVC or diffusing capacity. Clinical correlation is recommended.
== END 2023-03-02 09:52 | disposition home or self-care (01) ==
LOC: ANHPFT 09:52
PROVIDERS: PCP Family Medicine; Visit Provider Internal Medicine Pulmonary Disease
DX: R06.02 Shortness of breath (principal); R06.00 Dyspnea, unspecified
CPT/HCPCS: 94060; 94618; 94726; 94729

== ENCOUNTER 2023-03-31 21:48 | Emergency (ER) | payer OTHER, SELFPAY ==
[2023-03-31] VITALS (16 sets, daily range): BP systolic 112–165; BP diastolic 64–124; PULSE 70–103; RESP 16–29; TEMP 36.6; O2SAT 82–94
--- NOTE | ~2023-03-31 | XR_ITS ---
Portable chest x-ray Comparison: 03/20/2019 Clinical History: Hypoxia Findings: There is mild haziness at the left lung base. Right lung is clear. Cardiomediastinal silh ouette is stable. Bilateral shoulder arthroplasties are present. Impression: Mild haziness left lung base. Correlate for pulmonary edema/atelectasis versus pneumonia. Reviewed, dictated and finalized at [facility]. Impression: Mild haziness left lung base. Correlate for pulmonary edema/atelectasis versus pneumonia.
--- NOTE | 2023-03-31 22:16 | ED.EPISTAXIS ---
HPI - Epistaxis General Chief complaint: Epistaxis <MARIAM Vences Last Filed: 04/01/23 04:02> Stated complaint: Nose bleed <MARIAM Vences Last Filed: 04/01/23 04:02> Time Seen by Provider: 03/31/23 22:08 <MARIAM Vences Last Filed: 04/01/23 04:02> History of Present Illness HPI Narrative: 82-year-old female who is chronically anticoagulated with Xarelto reports for evaluation for spontaneous nosebleed for the past hour and a half. Patient states she was sitting at the dining room table when her no started to bleed. She states she had a small nosebleed yesterday that spontaneously resolved. She reports a large nosebleed multiple years ago. She denies difficulty breathing, trauma to her nose, cough or congestion. The patient states that she believes she has blood approximately 1-1/2 cups to 1 pint since the onset of epistaxis. <MARIAM Vences Last Filed: 04/01/23 04:02> Related Data Home medications: Home Medications Medication Instructions Recorded Confirmed cholecalciferol (vitamin D3) 25 25 mcg PO QAM 02/09/21 02/02/23 mcg (1,000 unit) capsule mecobalamin (vitamin B12) 1,000 1,000 mcg PO QAM 02/09/21 02/02/23 mcg chewable tablet <MARIAM Vences Last Filed: 04/01/23 04:02> Allergies/adverse reactions: Allergies Allergy/AdvReac Type Severity Reaction Status Date / Time No Known Allergies Allergy Verified 02/02/23 11:34 <MARIAM Vences Last Filed: 04/01/23 04:02> Review of Systems Review of Systems: CONSTITUTIONAL: Denies fever, chills EYES: Denies visual changes, redness, or discharge. ENT: See HPI CARDIOVASCULAR: Denies chest pain, palpitations, or edema. RESPIRATORY: Denies cough or dyspnea. GASTROINTESTINAL: Denies abdominal pain, nausea, vomiting, or diarrhea. GENITOURINARY: Denies dysuria or hematuria. SKIN: Denies rash or itching. MUSCULOSKELETAL: Denies back pain, joint pain, or myalgia. NEUROLOGIC: Denies headache, numbness, dizziness, or weakness. PSYCHIATRIC: Denies anxiety or depression. <Aisha Hoffmann PA-C - Last Filed: 04/01/23 04:02> [facility] Past Medical History Medical History: Medical History Essential hypertension Hyperlipidemia Hypothyroidism (acquired) Parkinsons disease Restrictive lung disease <Aisha Hoffmann PA-C - Last Filed: 04/01/23 04:02> Surgical History Surgical History: Surgical History History of back surgery History of cholecystectomy History of hysterectomy (~1984) History of kyphoplasty (~01/2021) History of left knee replacement History of left shoulder replacement (~09/17/21) History of right shoulder replacement History of surgery Fractured Arm (Steel Plate & 7 Screws) <Aisha Hoffmann PA-C - Last Filed: 04/01/23 04:02> Family History Family History: Family History Father Hypertension, Onset Age: 70 Cerebrovascular accident, Onset Age: 70 Mother Hypertension, Onset Age: 81 Cerebrovascular accident Sibling Asthma Family history of arthritis Family history of hearing loss Grandparent Family history of malignant neoplasm of breast in first degree relative <Aisha Hoffmann PA-C - Last Filed: 04/01/23 04:02> Social History Social History: Social History Smoking status: Never smoker Second hand tobacco smoke exposure: No Alcohol intake: never Alcohol use details: STATES VERY RARELY - [place] Substance use: never Substance use type: does not use Lack of Transportation: No Lack of Food: Never True Current Housing: I Have Housing Concerned About Future Housing: No Difficulty Paying Gas/Electric Bills: No Difficulty Paying for Meds: No Current
--- NOTE | 2023-03-31 22:47 | PC.NURSE ---
MALU Pierson administered Affrin medication into patients nose. Pt then started to bleed more from both nostrils and then started to spit up excessive amounts of blood. MALU Pierson verbal ordered a rhino rocket to be placed by EDP Dr. Ny.
[2023-03-31 22:48] LABS: Basophils Absolute Auto 0.1 K/mm3 (0.0-0.1); Basophils Percent Auto 0.6 % (0.2-1.2); Hematocrit 46.7 % (37.0-47.0); Hemoglobin 14.9 g/dL (12.0-15.0); Immature Granulocyte Absolute 0.04 K/mm3 (0.00-0.031); Immature Granulocyte Percent A 0.3 % (0-0.5); Lymphocytes Absolute Auto 1.52 K/mm3 (0.9-3.2); Lymphocytes Percent Auto 12.8 % (18.3-44.2); Mean Corpuscular HGB Conc 31.9 g/dl (32-36); Mean Platelet Volume 9.8 fl (7.4-10.4); Monocytes Percent Auto 8.1 % (2.6-8.5); Neutrophils Absolute Auto 9.2 K/mm3 (1.3-6.7); Neutrophils Percent Auto 78.2 % (45.5-73.1); Platelet Count Result 268 k/mm3 (150-375); Red Blood Count 5.13 M/mm3 (4.2-5.4); Red Cell Distribution Width 14.4 % (11.5-14.5); White Blood Count 11.8 K/mm3 (4.5-10.0)
--- NOTE | 2023-03-31 22:52 | PC.NURSE ---
Pt had a forehead sp02 sensor applied and her oxygen saturation was at 87%. EDP jo placed pt on 2L via nasal cannula inserted on the right side nare. Pt had a rhino rocket placed by EDP Dr. Ny in the left nare.
[2023-03-31 23:13] LABS: INR 2.1; Prothrombin Time 24.5 Seconds (11.1-14.7)
[2023-03-31 23:14] LABS: Partial Thromboplastin Time 44.6 SECONDS (22.3-36.8)
--- NOTE | 2023-03-31 23:31 | ECG_ITS ---
Measurements Intervals [place] Rate: 74 P: [place]: 0 QRS: 75 QRSD: 106 T: -5 QT: 354 QTc: 393 Interpretive Statements ATRIAL FIBRILLATION INCOMPLETE RIGHT BUNDLE BRANCH BLOCK NONSPECIFIC ST & T-WAVE ABNORMALITY- ANTEROLAT/INF LEADS ABNORMAL ECG COMPARED TO ECG 09/17/2021 11:25:47 NO SIGNIFICANT CHANGES Electronically Signed On 04-01-2023 6:49:53 CDT by Syed Tavarez D.O.
[2023-03-31 23:36] LABS: Alanine Aminotransferase 12 U/L (6-35); Albumin Level 4.2 g/dL (3.5-5.1); Alkaline Phosphatase 76 U/L (38-126); Anion Gap 9 mmol/L (8-16); Aspartate Amino Transferase 29 U/L (14-36); Bilirubin,Total 0.8 mg/dL (0.2-1.3); Blood Urea Nitrogen 24 mg/dL (7-17); Calcium 9.6 mg/dL (8.4-10.2); Carbon Dioxide 29 mmol/L (22-30); Chloride 100 mmol/L (98-107); Estimated CRCL calculation 53 ml/min; Estimated Glomerular Filt Rate > 60; Glucose 114 mg/dL (65-110); Potassium 4.3 mmol/L (3.4-5.0); Sodium 138 mmol/L (137-145)
[2023-03-31] MEDS: SODIUM CHLORIDE 0.9% IV 1,000 ML 999 ML IV CONT (23:37)
[2023-04-01] VITALS (28 sets, daily range): BP systolic 146–177; BP diastolic 76–112; PULSE 67–104; RESP 12–27; O2SAT 87–97
--- NOTE | 2023-04-01 07:03 | PC.NURSE ---
EDP Dr. Ny verbal order to have pt ambulate to test oxygen saturation. Pt normally uses a cane at home to ambulate. Pt stood up from bed with cane and with a two person assist. Pt was taken off oxygen. Pt took several steps then stated they were starting to feel too dizzy to keep walking . This RN and a tech assisted pt with her cane back to the bed when noticing patient starting to sway back and forth. Pt oxygen saturation was noted to be at 94% on room air while patient took the several steps. EDP Dr. Ny notified of pt condition.
--- NOTE | 2023-04-01 07:51 | PC.NURSE ---
Resting comfortably on cart. No bleeding noted from nose.
[2023-04-01 08:12] LABS: Hematocrit 50.5 % (37.0-47.0); Hemoglobin 15.7 g/dL (12.0-15.0)
--- NOTE | 2023-04-01 09:49 | PC.NURSE ---
Remains without nasal bleeding. Awaiting dispo.
== END 2023-04-01 11:31 | disposition home or self-care (01) ==
PROVIDERS: Emergency Medicine; Physician Assistant; Emergency Provider Preventive Medicine Aerospace Medicine; PCP Family Medicine
DX: R04.0 Epistaxis (principal); G20 Parkinson's disease; I10 Essential (primary) hypertension; E78.5 Hyperlipidemia, unspecified; E03.9 Hypothyroidism, unspecified; J98.4 Other disorders of lung; Z96.652 Presence of left artificial knee joint; Z96.612 Presence of left artificial shoulder joint; Z96.611 Presence of right artificial shoulder joint; Z90.49 Acquired absence of other specified parts of digestive tract; Z90.710 Acquired absence of both cervix and uterus; Z79.01 Long term (current) use of anticoagulants; I48.91 Unspecified atrial fibrillation; I45.10 Unspecified right bundle-branch block; R94.31 Abnormal electrocardiogram [ECG] [EKG]
CPT/HCPCS: 30901; 36415; 71045; 80053; 85014; 85018; 85025; 85610; 85730; 93005; 96360; 99283; A9270; J7030

== ENCOUNTER → 2023-05-30 11:21 | Outpatient (REF) | payer OTHER, SELFPAY | LOC: ANHLAB 11:21 | PROVIDERS: PCP Nurse Practitioner; Visit Provider Plastic Surgery | DX: B07.8 Other viral warts (principal) | CPT/HCPCS: 88305 ==

== ENCOUNTER 2024-01-19 10:59 | Outpatient (CLI) | payer OTHER, SELFPAY ==
[2024-01-19 11:19] LABS: Basophils Percent Auto 0.5 % (0.2-1.2); Hematocrit 52.1 % (37.0-47.0); Hemoglobin 16.7 g/dL (12.0-15.0); Immature Granulocyte Absolute 0.02 K/mm3 (0.00-0.031); Immature Granulocyte Percent A 0.2 % (0-0.5); Lymphocytes Absolute Auto 1.13 K/mm3 (0.9-3.2); Lymphocytes Percent Auto 13.1 % (18.3-44.2); Mean Corpuscular HGB Conc 32.1 g/dl (32-36); Mean Corpuscular Hemoglobin 29.1 pg (26-34); Mean Corpuscular Volume 90.8 fl (80-100); Mean Platelet Volume 9.9 fl (7.4-10.4); Monocytes Absolute Auto 0.8 K/mm3 (0.1-0.6); Monocytes Percent Auto 9.7 % (2.6-8.5); Neutrophils Absolute Auto 6.6 K/mm3 (1.3-6.7); Neutrophils Percent Auto 76.5 % (45.5-73.1); Platelet Count Result 221 k/mm3 (150-375); Red Blood Count 5.74 M/mm3 (4.2-5.4); Red Cell Distribution Width 14.9 % (11.5-14.5); White Blood Count 8.6 K/mm3 (4.5-10.0)
[2024-01-19 12:51] LABS: Alanine Aminotransferase 16 U/L (6-35); Albumin Level 4.8 g/dL (3.5-5.1); Alkaline Phosphatase 85 U/L (38-126); Anion Gap 9 mmol/L (4-12); Aspartate Amino Transferase 27 U/L (14-36); Blood Urea Nitrogen 22 mg/dL (7-17); Calcium 9.5 mg/dL (8.4-10.2); Carbon Dioxide 30 mmol/L (22-30); Chloride 100 mmol/L (98-107); Estimated Glomerular Filt Rate > 60; Glucose 104 mg/dL (65-110); Potassium 4.2 mmol/L (3.4-5.0); Sodium 139 mmol/L (137-145)
[2024-01-24 14:43] LABS: Erythropoietin (EPO) 9.3 mIU/mL (2.6-18.5)
== END 2024-01-19 11:00 | disposition home or self-care (01) ==
LOC: ANHLAB 11:01
PROVIDERS: Nurse Practitioner Family; PCP Family Medicine; Visit Provider Internal Medicine Hematology & Oncology
DX: D75.1 Secondary polycythemia (principal)
CPT/HCPCS: 36415; 80053; 82668; 85025

== ENCOUNTER 2024-04-24 11:35 | Outpatient (CLI) | payer OTHER, SELFPAY ==
[2024-04-24 12:57] LABS: Basophils Percent Auto 0.1 % (0.2-1.2); Immature Granulocyte Absolute 0.03 K/mm3 (0.00-0.031); Immature Granulocyte Percent A 0.4 % (0-0.5); Lymphocytes Absolute Auto 0.99 K/mm3 (0.9-3.2); Lymphocytes Percent Auto 12.9 % (18.3-44.2); Mean Corpuscular Hemoglobin 28.9 pg (26-34); Mean Corpuscular Volume 90.3 fl (80-100); Mean Platelet Volume 10.2 fl (7.4-10.4); Monocytes Absolute Auto 0.8 K/mm3 (0.1-0.6); Monocytes Percent Auto 10.3 % (2.6-8.5); Neutrophils Absolute Auto 5.9 K/mm3 (1.3-6.7); Neutrophils Percent Auto 76.3 % (45.5-73.1); Platelet Count Result 235 k/mm3 (150-375); Red Blood Count 5.54 M/mm3 (4.2-5.4); Red Cell Distribution Width 14.1 % (11.5-14.5); White Blood Count 7.7 K/mm3 (4.5-10.0)
[2024-04-24 16:48] LABS: Alanine Aminotransferase 11 U/L (6-35); Albumin Level 4.3 g/dL (3.5-5.1); Alkaline Phosphatase 89 U/L (38-126); Anion Gap 10 mmol/L (4-12); Aspartate Amino Transferase 24 U/L (14-36); Bilirubin,Total 1.1 mg/dL (0.2-1.3); Blood Urea Nitrogen 16 mg/dL (7-17); Calcium 9.5 mg/dL (8.4-10.2); Carbon Dioxide 29 mmol/L (22-30); Chloride 98 mmol/L (98-107); Estimated Glomerular Filt Rate > 60; Glucose 101 mg/dL (65-110); Potassium 3.9 mmol/L (3.4-5.0); Sodium 137 mmol/L (137-145)
[2024-04-27 17:14] LABS: Erythropoietin (EPO) 8.9 mIU/mL (2.6-18.5)
== END 2024-04-24 11:36 | disposition home or self-care (01) ==
PROVIDERS: Nurse Practitioner Family; PCP Nurse Practitioner Family; Visit Provider Internal Medicine Hematology & Oncology
DX: D75.1 Secondary polycythemia (principal)
CPT/HCPCS: 36415; 80053; 82668; 85025

== ENCOUNTER 2024-07-30 13:15 | Emergency (ER) | payer OTHER, SELFPAY ==
[2024-07-30 13:30] VITALS: BP 133/94; PULSE 104; RESP 20; TEMP 36.4; O2SAT 73
--- NOTE | 2024-07-30 13:40 | ED.URI ---
HPI - URI/Sore Throat General Stated Complaint: Sinus/Cough Time Seen by Provider: 07/30/24 13:35 Source: patient, RN notes reviewed and old records reviewed Mode of arrival: ambulatory Limitations: no limitations History of Present Illness HPI Narrative: Patient arrives accompanied by her daughter. The complaints of upper respiratory symptoms since yesterday. On arrival as oxygen saturation noted to be between 73 and 77. Immediately placed on 15 L non-rebreather, sats began to correct, 911 called. [address] Segundo accepted Related Data Home Medications ?Medication ?Instructions ?Recorded ?Confirmed ?Last Taken ?Type cholecalciferol (vitamin D3) 25 25 mcg PO QAM 02/09/21 03/07/24 09/16/21 History mcg (1,000 unit) capsule mecobalamin (vitamin B12) 1,000 1,000 mcg PO QAM 02/09/21 03/07/24 09/16/21 History mcg chewable tablet apixaban 2.5 mg tablet (Eliquis) 2.5 mg PO BID 05/18/23 03/07/24 Unknown History Allergies Allergy/AdvReac Type Severity Reaction Status Date / Time No Known Allergies Allergy Verified 07/30/24 13:37 Review of Systems Review of Systems: All systems reviewed & are unremarkable except as noted in HPI and below Constitutional: Constitutional: Reports no additional constitutional complaints ENT: Reports system reviewed and no additional complaints, except as documented Cardiovascular: Cardiovascular: Reports no additional cardiovascular complaints Respiratory: Respiratory: Reports no additional respiratory complaints Gastrointestinal: Gastrointestinal: Reports no additional gastrointestinal complaints [facility] Past Medical History Medical History Atherosclerosis of aorta Other thrombophilia Neoplasm of uncertain behavior of skin Anticoagulation adequate with anticoagulant therapy Plantar callus PND (post-nasal drip) Restrictive lung disease Compression fracture of L1 lumbar vertebra Systolic murmur Shortness of breath on exertion Essential hypertension Hyperlipidemia Hypothyroidism (acquired) Post-menopausal Surgical History Surgical History History of left shoulder replacement (~09/17/21) History of kyphoplasty (~01/2021) History of back surgery History of cholecystectomy History of left knee replacement History of surgery Fractured Arm (Steel Plate & 7 Screws) History of right shoulder replacement History of hysterectomy (~1984) Family History Family History Father Hypertension, Onset Age: 70 Cerebrovascular accident, Onset Age: 70 Mother Hypertension, Onset Age: 81 Cerebrovascular accident Sibling Asthma Family history of arthritis Family history of hearing loss Grandparent Family history of malignant neoplasm of breast in first degree relative Social History Social History Smoking status: Never smoker Second hand tobacco smoke exposure: No Alcohol intake: never Alcohol use details: STATES VERY RARELY - [place] Substance use: never Substance use type: does not use Lack of Transportation: No Lack of Food: Never True Current Housing: I Have Housing Concerned About Future Housing: No Difficulty Paying Gas/Electric Bills: No Difficulty Paying for Meds: No Currently Unemployed: No Education: High School Diploma/GED Difficulty w/ Childcare or Family Care: No Living arrangements: with family Gender identity (if verbalized by the patient): Female Spiritual care concerns: No Comments At the time of my signature, I reviewed and agree with the nursing past medical, surgical, social, and family history. There is no relevant family history pertinent to the patient complaint. Exam Const: General: cooperative, awake, in distress respiratory and ill appearing Orientation/consciousness: oriented to person, oriented to place and oriented to time HENMT: Head: normal to inspection Resp: Effort & Inspection: normal respiratory effort and able to speak in complete sentences Auscultation: clear to auscultation bilaterally, no crackles, no rales, no rhonchi and no wheezes Cardio: Palpation: normal PMI Rate: regular rate Rhythm: regular rhythm Heart sounds: S1 normal heart sound present and S2 normal heart sound present Neuro: General: oriented to person, oriented to place and oriented to time Cranial nerves: Yes CN's II-XII intact bilaterally Psych: Appearance: grossly normal Thought process: Normal thought process present Insight: Good insight present (Psych) Judgement: Good judgement present (Psych) Course Course Level of Care: Express Care Visit Vital Signs Vital signs: Reviewed Transfer Transfered to: [place] Transportation: ALS Transfer rationale: Patient in respiratory distress, higher level of care needed Accepting physician: Sanya CALVERT - URI/Sore Throat MDM Narrative Medical decision making narrative: Patient with unstable vital signs, immediately put on oxygen, non-rebreather, transfer to emergency department initiated Differential Diagnosis Differential diagnosis: Likely other (Pneumonia, respiratory distress) Medical Records Attestation: I reviewed the patient's medical records. Discharge Plan Discharge Clinical Impression: Acute respiratory distress Patient Disposition: Home, Self-Care Condition: Serious Instructions: Antibiotic Form Patient Language: Kazakh Prescriptions: No Action Eliquis 2.5 mg tablet 2.5 mg PO BID cholecalciferol (vitamin D3) 25 mcg (1,000 unit) capsule 25 mcg PO QAM mecobalamin (vitamin B12) 1,000 mcg tablet,chewable 1,000 mcg PO QAM rosuvastatin 5 mg tablet See Rx Instructions .ROUTE .COMPLEX Qty: 90 1RF Dose Instruction: TAKE 1 TABLET BY MOUTH EVERY DAY Rx Instructions: TAKE 1 TABLET BY MOUTH EVERY DAY carbidopa-levodopa 25-100 mg tablet See Rx Instructions .ROUTE .COMPLEX Qty: 450 1RF Dose Instruction: TAKE 2 TABLETS BY MOUTH AT 6 AM AND 2 TABLETS BY MOUTH AT NOON, THEN 1 TABLET BY MOUTH AT NIGHT Rx Instructions: TAKE 2 TABLETS BY MOUTH AT 6 AM AND 2 TABLETS BY MOUTH AT NOON, THEN 1 TABLET BY MOUTH AT NIGHT levothyroxine [Levo-T] 112 mcg tablet 112 mcg PO DAILY Qty: 90 1RF metoprolol tartrate 100 mg tablet 100 mg PO BID Qty: 180 1RF Rx Instructions: TAKE 1 TABLET BY MOUTH TWICE A DAY Follow-up/Referrals: Evita Charlton APRN [Primary Care Provider] - 3 Days Time of Disposition: 13:50
[2024-07-30 13:52] VITALS: BP 186/120; O2SAT 95
== END 2024-07-30 13:52 | disposition home or self-care (01) ==
PROVIDERS: Emergency Provider Nurse Practitioner Family; PCP Nurse Practitioner Family
DX: R06.03 Acute respiratory distress (principal); I70.0 Atherosclerosis of aorta; I10 Essential (primary) hypertension; E78.5 Hyperlipidemia, unspecified; E03.9 Hypothyroidism, unspecified; R01.1 Cardiac murmur, unspecified; D68.69 Other thrombophilia; Z79.01 Long term (current) use of anticoagulants; Z96.612 Presence of left artificial shoulder joint; Z96.611 Presence of right artificial shoulder joint; Z96.652 Presence of left artificial knee joint
CPT/HCPCS: 99213; G0463

== ENCOUNTER 2024-07-30 14:07 | Inpatient (IN) | payer OTHER, SELFPAY ==
[2024-07-30] VITALS (12 sets, daily range): BP systolic 143–161; BP diastolic 84–90; PULSE 96–116; RESP 17–36; TEMP 36.4–36.6; O2SAT 84–94; BMI 28.5
--- NOTE | ~2024-07-30 | XR_ITS ---
Portable chest x-ray Comparison: 07/30/2024 Clinical History: Shortness of breath Findings: There is probable central congestive change with minimal bibasilar pulmonary edema and/or atelectasis. Cardiomediastinal silhouette is stable. Bilateral shoulder arthroplasties are present. Impression: Central congestive change with probable minimal bibasilar pulmonary edema/atelectatic change. Reviewed, dictated and finalized at [facility]. OFFICIAL Impression: Central congestive change with probable minimal bibasilar pulmonary edema/atele ctatic change.
--- NOTE | ~2024-07-30 | XR_ITS ---
CHEST RADIOGRAPH, PA AND LATERAL CLINICAL HISTORY: sob LOW O2 STATS NAPRAPATH . COMPARISON: 03/31/2023 TECHNIQUE: PA and lateral views of the chest. FINDINGS The cardiomediastinal silhouette is enlarged. Blunting of the bilateral costophrenic sulci suggesting small bilateral pleural effusions. Increased interstitial markings within the bilateral lung bases, right greater than left, likely atelectasis. Increased interstitial markings are identified bilaterally, findings suggesting mild pulmonary vascul ar congestion. The remainder of the lungs are otherwise clear. IMPRESSION: Mild pulmonary vascular congestion with small bilateral pleural effusions and adjacent compressive at electasis. Reviewed, dictated and finalized at location A. EDUCATOR IMPRESSION: Mild pulmonary vascular congestion with small bilateral pleural effusions and a djacent compressive atelectasis.
--- NOTE | ~2024-07-30 | XR_ITS ---
Portable chest x-ray Comparison: 07/31/2024 Clinical History: CHF Findings: Small left pleural effusion present with left basilar and left perihilar patchy airspace c onsolidation. Right lung clear. Cardiomediastinal silhouette is stable. Bilateral shoulder arthropla sties are again present. Impression: Small left pleural effusion with left basilar and left perihilar airspace disease. Correlate for atel ectasis/edema versus pneumonia. Reviewed, dictated and finalized at [facility]. PATROL Impression: Small left pleural effusion with left basilar and left perihilar airspace disea se. Correlate for atelectasis/edema versus pneumonia.
--- NOTE | ~2024-07-30 | CT_ITS ---
Clinical indication:Left-sided pleural effusion COMPARISON:08/04/2024. Reference is made to multiple plain film evaluations of the chest dated 08/12/2024 and dating back to 07/30/2024 TECHNIQUE: Multiple contiguous axial images of the chest were performed without the administration of intravenous contrast. FINDINGS: LUNG:Large left and small right-sided pleural effusions, with adjacent consolidation. MEDIASTINUM:Bilateral hilar lymphadenopathy. Limited evaluation for mediastinal lymphadenopathy secondary to the lack of intrathoracic fat and int ravenous contrast. HEART:The heart is enlarged, without pericardial effusion. Significant calcification of the mitral annulus. SOFT TISSUES OF THE CHEST: Unremarkable. BONES OF THE CHEST: No acute fracture. VISUALIZED PORTION OF THE UPPER ABDOMEN: Punctate calcifications identified within the splenic parenchyma, suggesting prior granulomatous dise ase. The gallbladder is surgically absent. Dense calcification of the thoracoabdominal aorta without aneurysmal dilatation or dissection. IMPRESSION: Large left and small right-sided pleural effusions with adjacent consolidation. Reviewed, dictated and finalized at location A. M SHOVELMAN
--- NOTE | ~2024-07-30 | CT_ITS ---
EXAMINATION: CT diagnostic chest wo con DATE: 08/04/2024 11:16 INDICATION: Left lower lobe pneumonia versus effusion TECHNIQUE: Computed tomography (CT) of the chest was performed without intravenous contrast. Automate d exposure control and iterative reconstruction technique were employed. Exam dose: 180.13 mGy-cm to robb exam DLP. COMPARISON: 08/04/2024 portable AP chest FINDINGS: Small left pleural effusion. There is linear atelectasis or scarring of the lingula. There is more prominent left basilar lower lo be atelectasis, minimal dependent right lower lobe atelectasis. Cardiomegaly. There is extensive thoracic aortic calcification including ascending aorta, aortic arch, descending t horacic aorta. No thoracic aortic aneurysm. No hilar or mediastinal mass lesion or adenopathy. No pericardial effusion. Status post cholecystectomy. IMPRESSION: Small left pleural effusion and bilateral areas of atelectasis, most prominent at the ba se of the left lower lobe Cardiomegaly Reviewed, dictated and finalized at [facility]. Reviewed, dictated and finalized at location A. TOR DRILL OPERATOR IMPRESSION: Small left pleural effusion and bilateral areas of atelectasis, mo st prominent at the base of the left lower lobe Cardiomegaly
--- NOTE | ~2024-07-30 | US_ITS ---
EXAMINATION: US thoracentesis DATE: 08/14/2024 14:14 INDICATION: pleural effusion TECHNIQUE: The patient's family member provided consent. The skin was prepped and draped in sterile f ashion. 1% lidocaine was used for local anesthesia. Under ultrasound guidance, a 5 Fr catheter with t rochar was advanced into the left pleural effusion. Fluid was aspirated. The catheter was removed, an d a dressing was applied. There were no immediate complications. FINDINGS: Ultrasound images demonstrate a left pleural effusion and the catheter within the fluid. IMPRESSION: 1. Successful ultrasound-guided thoracentesis yielding 300 mL of александр-colored fluid. Reviewed, dictated and finalized at location A. NFORMATICS TECHNICIAN
--- NOTE | ~2024-07-30 | XR_ITS ---
[id number] Ordering provider: Mariza Mcdonald MD History: 83 years Female with . POST THORA . Comparison: None. FINDINGS: MEDIASTINUM: The cardiac silhouette is moderately enlarged. Congestive edison. LUNGS: No pneumothorax. Opacification the left lower lobe area suggestive of atelectasis versus pneum onia. Minimal left pleural effusion is possible. Minimal interstitial changes bilaterally which may i ndicate underlying pulmonary edema. OTHER: No free air under the diaphragm. Bilateral shoulder arthroplasty. Degenerative spine. IMPRESSION: Left basilar atelectasis versus pneumonia with minimal effusion. Reviewed, dictated and finalized at location A. ORATE SECRETARY
--- NOTE | ~2024-07-30 | XR_ITS ---
XR chest 1V portable DATE: 08/04/2024 05:59 INDICATION: Hypoxia TECHNIQUE: Portable upright AP chest on 08/04/2024 at 0542 hours COMPARISON: 08/02/2024 portable AP chest at 0611 hours FINDINGS: Collimated. Aortic arch calcification. No hilar or mediastinal enlargement. There is patchy infiltrate in the left mid and both lower lung zones. Moderately large left pleural effusion. Bilateral shoulder arthroplasty. Osteopenia. Status post arthroplasty at L1. IMPRESSION: Left mid and bilateral lower lung infiltrates Moderate left pleural effusion, increased since 08/2024 Cardiomegaly, aortic atherosclerosis Reviewed, dictated and finalized at location A. AL FUND MANAGER
--- NOTE | ~2024-07-30 | XR_ITS ---
EXAMINATION: [id number] DATE: 08/14/2024 15:40 INDICATION: Acute onset right knee pain TECHNIQUE: AP and crosstable lateral views of the right knee were obtained. COMPARISON: None. FINDINGS: 6 mm lateral subluxation at the knee joint. No fracture. Chondrocalcinosis at the medial lateral comp artments of the right knee were there is also mild joint space narrowing and tiny medial sided and sm all lateral sided marginal osteophytes. More prominent osteoarthritis in the patellofemoral compartme nt with subarticular cystlike change along the patellar and trochlear articular surfaces and moderate -sized marginal osteophytes. Small to moderate-sized knee joint effusion and/or synovitis without tori dent layering lipohemarthrosis. IMPRESSION: 1. 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 2. Small to moderate-sized right knee joint effusion and/or synovitis. 3. No evident acute osseous abnormality. Reviewed, dictated and finalized at location B. NE ENGINEER IMPRESSION: 1. 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 2. Small to moderate-sized right knee joint effusion and/or synovitis. 3. No evident acute osseous abnormality.
--- NOTE | ~2024-07-30 | XR_ITS ---
XR chest 1V portable 08/08/2024 08:05 Indication: Influenza. Hypoxia. Procedure: AP portable chest Comparison: Comparison to multiple prior studies sequentially, with oldest reviewed study dated 07/03. Findings: Cardiomegaly. There is consolidation of the left mid and lower lung. Moderate left effusion . No pneumothorax. There are bilateral shoulder arthroplasties. Impression: 1: Consolidation of the left mid and lower lung, compatible with pneumonia. 2: Cardiomegaly. 3: Moderate left pleural effusion. Reviewed, dictated and finalized at location B. ATTENDANT Impression: 1: Consolidation of the left mid and lower lung, compatible with pneumonia. 2: Cardiomegaly. 3: Moderate left pleural effusion.
--- NOTE | ~2024-07-30 | XR_ITS ---
XR chest 1V portable 08/16/2024 15:00 Indication: AP portable chest Procedure: AP portable chest Comparison: Comparison to multiple prior studies sequentially, with oldest reviewed study dated 10/2024. Findings: Cardiomegaly. Left basilar airspace disease. Small left pleural effusion. No pneumothorax. There are bilateral shoulder arthroplasties. There are vertebroplasty changes in the upper lumbar spi ne. Impression: 1: Left basilar airspace disease which appears to be unchanged. Differential diagnosis includes pneum onia and/or atelectasis. 2: Small left pleural effusion. Reviewed, dictated and finalized at location A. COORDINATOR Impression: 1: Left basilar airspace disease which appears to be unchanged. Differential di agnosis includes pneumonia and/or atelectasis. 2: Small left pleural effusion.
--- NOTE | ~2024-07-30 | XR_ITS ---
XR chest 1V portable DATE: 08/12/2024 03:41 INDICATION: Oxygen desaturation TECHNIQUE: Portable upright AP chest on 08/12/2024 at 0337 hours COMPARISON: 08/08/2023 portable AP chest at 0758 hours FINDINGS: There is dense pulmonary atelectasis/consolidation in the left mid and lower lung zones and large left pleural effusion. There is mild infiltrate or atelectasis in the right lower lung and small right pleural effusion. Right pulmonary hyperinflation suggesting COPD. Cardiomegaly. Aortic arch prominent calcification. Bilateral shoulder arthroplasties. Osteopenia. Vertebroplasty at L1. Degenerative change and mild scoliosis of the thoracic spine. IMPRESSION: Increased atelectasis/prominent consolidation of the left mid and lower lung zones and le ft pleural effusion Mild infiltrate or atelectasis in the right lower lung field and small right pleural effusion Reviewed, dictated and finalized at location A. NET ADMIN IMPRESSION: Increased atelectasis/prominent consolidation of the left mid and l ower lung zones and left pleural effusion Mild infiltrate or atelectasis in the right lower lung field and small right pl eural effusion
--- NOTE | 2024-07-30 14:11 | ECG_ITS ---
Test Date: 2024-07-30 14:18:19 Measurements Intervals [place] Rate: 105 P: 0 [place]: 0 QRS: 58 QRSD: 108 T: -52 QT: 331 QTc: 438 Interpretive Statements ATRIAL FIBRILLATION WITH RAPID VENTRICULAR RESPONSE INCOMPLETE RIGHT BUNDLE BRANCH BLOCK [90+ ms QRS DURATION, TERMINAL R IN V1/V2, 40+ ms S IN I/aVL/V4/V5/V6] MINIMAL VOLTAGE CRITERIA FOR LVH, CONSIDER NORMAL VARIANT [MEETS CRITERIA IN ONE OF: R(aVL), S(V1), R(V5), R(V5/V6)+S(V1)] ST DEVIATION AND MODERATE T-WAVE ABNORMALITY, CONSIDER INFERIOR ISCHEMIA [-0.1+ mV T WAVE IN II/aVF] No previous ECG available for comparison Electronically Signed On 07-30-2024 18:03:30 FUR STRETCHER by Claudette Salinas M.D.
[2024-07-30 14:42] LABS: Basophils Percent Auto 0.1 % (0.2-1.2); Hemoglobin 15.4 g/dL (12.0-15.0); Immature Granulocyte Absolute 0.02 K/mm3 (0.00-0.031); Immature Granulocyte Percent A 0.3 % (0-0.5); Lymphocytes Absolute Auto 0.52 K/mm3 (0.9-3.2); Lymphocytes Percent Auto 6.6 % (18.3-44.2); Mean Corpuscular HGB Conc 32.8 g/dl (32-36); Mean Corpuscular Hemoglobin 29.3 pg (26-34); Mean Corpuscular Volume 89.5 fl (80-100); Mean Platelet Volume 9.9 fl (7.4-10.4); Monocytes Absolute Auto 0.8 K/mm3 (0.1-0.6); Monocytes Percent Auto 10.7 % (2.6-8.5); Neutrophils Absolute Auto 6.5 K/mm3 (1.3-6.7); Neutrophils Percent Auto 82.3 % (45.5-73.1); Platelet Count Result 186 k/mm3 (150-375); Red Blood Count 5.25 M/mm3 (4.2-5.4); Red Cell Distribution Width 15.1 % (11.5-14.5); White Blood Count 7.8 K/mm3 (4.5-10.0)
[2024-07-30 14:51] LABS: Alkaline Phosphatase 101 U/L (38-126); Anion Gap 5 mmol/L (4-12); Aspartate Amino Transferase 23 U/L (14-36); Bilirubin,Total 1.4 mg/dL (0.2-1.3); Blood Urea Nitrogen 23 mg/dL (7-17); Carbon Dioxide 28 mmol/L (22-30); Chloride 103 mmol/L (98-107); Estimated CRCL calculation 61 ml/min; Estimated Glomerular Filt Rate > 60; Glucose 96 mg/dL (65-110); Potassium 3.8 mmol/L (3.4-5.0); Sodium 136 mmol/L (137-145)
[2024-07-30 15:04] LABS: Alanine Aminotransferase 5 U/L (6-35)
[2024-07-30] MEDS: IPRATROPIUM 0.5 MG/ALBUTEROL SULFATE 2.5 MG AMPUL.NEB 3 ML INHALATION ×2 (15:19→21:51)
[2024-07-30 15:46] LABS: NT Pro B Type Natriuretic Pept 3840 pg/mL (19.9-100)
[2024-07-30 16:00] LABS: Influenza A QL RT-PCR Positive (Negative); Influenza B QL RT-PCR Negative (Negative); RSV RNA, RT-PCR Negative (Negative); SARS-CoV-2 RNA PCR Negative (Negative)
--- NOTE | 2024-07-30 16:10 | ED_ITS ---
HPI - General Adult General Chief complaint: Shortness of Breath/Dyspnea Stated complaint: DYSPNEA Time Seen by Provider: 07/30/24 14:56 History of Present Illness HPI narrative: patient is an 83-year-old female who presents ER with increased weakness and fatigue. Went to an urgent care and found to be hypoxic. Family in town due to recent family member's . Patient became more weak yesterday as did her . Today patient was coughing and so they decided to seek intervention. Patient has no complaints but is sleepy and lacks energy. Related Data Home Medications ?Medication ?Instructions ?Recorded ?Confirmed ?Last Taken ?Type cholecalciferol (vitamin D3) 25 25 mcg PO QAM 02/09/21 07/30/24 07/30/24 History mcg (1,000 unit) capsule mecobalamin (vitamin B12) 1,000 1,000 mcg PO QAM 02/09/21 07/30/24 07/30/24 History mcg chewable tablet apixaban 2.5 mg tablet (Eliquis) 2.5 mg PO BID 05/18/23 07/30/24 07/30/24 History amlodipine 5 mg tablet 5 mg PO .daily 07/30/24 07/30/24 07/30/24 History Allergies Allergy/AdvReac Type Severity Reaction Status Date / Time No Known Allergies Allergy Verified 07/30/24 14:27 Review of Systems 2 Review of Systems: ROS unobtainable: Yes unobtainable due to medical condition PMFSH Past Medical History Medical History Atherosclerosis of aorta Other thrombophilia Neoplasm of uncertain behavior of skin Anticoagulation adequate with anticoagulant therapy Plantar callus PND (post-nasal drip) Restrictive lung disease Compression fracture of L1 lumbar vertebra Systolic murmur Shortness of breath on exertion Essential hypertension Hyperlipidemia Hypothyroidism (acquired) Post-menopausal Surgical History Surgical History History of left shoulder replacement (~09/17/21) History of kyphoplasty (~01/2021) History of back surgery History of cholecystectomy History of left knee replacement History of surgery Fractured Arm (Steel Plate & 7 Screws) History of right shoulder replacement History of hysterectomy (~1984) Family History Family History Father Hypertension, Onset Age: 70 Cerebrovascular accident, Onset Age: 70 Mother Hypertension, Onset Age: 81 Cerebrovascular accident Sibling Asthma Family history of arthritis Family history of hearing loss Grandparent Family history of malignant neoplasm of breast in first degree relative Social History Social History Smoking status: Never smoker Second hand tobacco smoke exposure: No Alcohol intake: never Alcohol use details: STATES VERY RARELY - [place] Substance use: never Substance use type: does not use Do You Feel Safe in your Home?: Yes Lack of Transportation: No Lack of Food: Never True Current Housing: I Have Housing Concerned About Future Housing: No Difficulty Paying Gas/Electric Bills: No Difficulty Paying for Meds: No Currently Unemployed: No Education: Decline to Answer Difficulty w/ Childcare or Family Care: No Living arrangements: with family Gender identity (if verbalized by the patient): Female Spiritual care concerns: No Exam 2 Narrative: GENERAL: Fatigue-appearing, well-nourished, and in no acute distress. HEAD: Normocephalic, atraumatic. ENT: Mucous membranes moist. CHEST: faint wheezing. No respiratory distress. HEART: Irregularly irregular rate and rhythm that is tachycardic. Normal peripheral pulses. ABDOMEN: Soft, nontender, nondistended. EXTREMITIES: Normal range of motion. No edema. SKIN: Warm, dry, no rash. NEURO: Alert and oriented x3. PSYCH: Normal mood and affect. Course Course Emergency Course: Tamiflu ordered. Admit to hospitalist service for hypoxia and influenza. Patient family informed of diagnosis. Patient's just has a positive for influenza as well at the urgent care. Vital Signs Vital signs: Vital Signs Temperature 97.9 F 07/30/24 14:11 Pulse Rate 104 H 07/30/24 14:11 Respiratory Rate 21 H 07/30/24 14:11 Blood Pressure 153/88 H 07/30/24 14:11 Pulse Oximetry 84 L 07/30/24 14:11 Oxygen Delivery Room Air 07/30/24 14:11 Temperature 97.6 F 07/30/24 20:55 Pulse Rate 116 H 07/30/24 21:52 Respiratory Rate 26 H 07/30/24 21:52 Blood Pressure 143/84 H 07/30/24 20:55 Pulse Oximetry 90 07/30/24 20:55 Oxygen Delivery Nasal Cannula 07/30/24 17:13 Oxygen Flow Rate 4 07/30/24 17:13 Fraction of Inspired Oxygen 36 07/30/24 15:19 Medical Decision Making Vital Signs Vital Signs: Vital Signs Temperature 97.9 F 07/30/24 14:11 Pulse Rate 104 H 07/30/24 14:11 Respiratory Rate 21 H 07/30/24 14:11 Blood Pressure 153/88 H 07/30/24 14:11 Pulse Oximetry 84 L 07/30/24 14:11 Oxygen Delivery Room Air 07/30/24 14:11 Temperature 97.6 F 07/30/24 20:55 Pulse Rate 116 H 07/30/24 21:52 Respiratory Rate 26 H 07/30/24 21:52 Blood Pressure 143/84 H 07/30/24 20:55 Pulse Oximetry 90 07/30/24 20:55 Oxygen Delivery Nasal Cannula 07/30/24 17:13 Oxygen Flow Rate 4 07/30/24 17:13 Fraction of Inspired Oxygen 36 07/30/24 15:19 Lab Data 07/30/24 14:32 07/30/24 14:32 Labs: Lab Results 07/30/24 07/30/24 Range/Units 14:32 15:18 WBC 7.8 (4.5-10.0) K/mm3 RBC 5.25 (4.2-5.4) M/mm3 Hgb 15.4 H (12.0-15.0) g/dL Hct 47.0 (37.0-47.0) % MCV 89.5 (80-100) fl MCH 29.3 (26-34) pg MCHC 32.8 (32-36) g/dl RDW 15.1 H (11.5-14.5) % Plt Count 186 (150-375) k/mm3 MPV 9.9 (7.4-10.4) fl Immature Gran % (Auto) 0.3 (0-0.5) % Neut % (Auto) 82.3 H (45.5-73.1) % Lymph % (Auto) 6.6 L (18.3-44.2) % [place] % (Auto) 10.7 H (2.6-8.5) % Eos % (Auto) 0.0 (0-4.4) % Baso % (Auto) 0.1 L (0.2-1.2) % Lymph # (Auto) 0.52 L (0.9-3.2) K/mm3 [place] # (Auto) 0.8 H (0.1-0.6) K/mm3 Eos # (Auto) 0.0 (0-0.3) K/mm3 Baso # (Auto) 0.0 (0.0-0.1) K/mm3 Abs Immat Gran (auto) 0.02 (0.00-0.031) K/mm3 Absolute Neuts (auto) 6.5 (1.3-6.7) K/mm3 Absolute Nucleated RBC 0.000 (0.0-0.012) K/mm3 Nucleated RBC % 0.0 (0.0-0.2) % Sodium 136 L (137-145) mmol/L Potassium 3.8 (3.4-5.0) mmol/L Chloride 103 (98-107) mmol/L Carbon Dioxide 28 (22-30) mmol/L Anion Gap 5 (4-12) mmol/L BUN 23 H (7-17) mg/dL Creatinine 0.60 L (0.7-1.0) mg/dL Estim Creat Clear Calc 61 ml/min Estimated GFR > 60 (59 - ) Glucose 96 (65-110) mg/dL Calcium 9.0 (8.4-10.2) mg/dL Total Bilirubin 1.4 H (0.2-1.3) mg/dL AST 23 (14-36) U/L ALT 5 L (6-35) U/L Alkaline Phosphatase 101 (38-126) U/L NT-Pro-B Natriuret Pep 3840 H (19.9-100) pg/mL Total Protein 7.0 (6.3-8.2) g/dL Albumin 4.0 (3.5-5.1) g/dL Influenza A (RT-PCR) Positive A (Negative) Influenza B (RT-PCR) Negative (Negative) RSV (RT-PCR) Negative (Negative) SARS-CoV-2 RNA (RT-PCR) Negative (Negative) Imaging Data Radiologist's impression: ITS Impressions Chest X-Ray 12/30/24 14:41 IMPRESSION: Mild pulmonary vascular congestion with small bilateral pleural effusions and adjacent compressive atelectasis. ECG Data EKG #1: ECG completion date: 07/30/24 ECG completion time: 14:18 EKG Interpretation: tachycardia (105), atrial fibrillation, non-specific ST changes, normal QRS, normal QT and NL axis Discharge Plan Discharge Clinical Impression: Influenza A, Hypoxia Patient Disposition: Still a Patient Condition: Stable
--- NOTE | 2024-07-30 16:58 | P.HP_ITS ---
H&P: HPI History of Present Illness Date/Time: 07/30/24 16:58 Chief Complaint: Shortness of breath Narrative: 83-year-old female past medical history of systolic murmur, hypertension, hyperlipidemia, hypothyroidism presents to the hospital shortness of breath. The patient was feeling unwell so she to the urgent care. There her SpO2 was in the 70s so she was brought to [facility] for further evaluation. HPI is limited as patient does not remember much for happened this morning. Patient denies nausea vomiting fever or chills. Complains of wet cough. Patient is hemoconcentrated at 15.4, sodium 136, bilirubin of 1.4, BNP of 3840, and flu A positive. Chest x-ray shows Mild pulmonary vascular congestion with small bilateral pleural effusions and adjacent compressive atelectasis. EKG shows AFib with RVR at a rate of 105. Review of Systems Review of Systems: 12 systems were reviewed and are negativ e except for as per HPI. [facility] Past Medical History Medical History Atherosclerosis of aorta Other thrombophilia Neoplasm of uncertain behavior of skin Anticoagulation adequate with anticoagulant therapy Plantar callus PND (post-nasal drip) Restrictive lung disease Compression fracture of L1 lumbar vertebra Systolic murmur Shortness of breath on exertion Essential hypertension Hyperlipidemia Hypothyroidism (acquired) Post-menopausal Surgical History Surgical History History of left shoulder replacement (~09/17/21) History of kyphoplasty (~01/2021) History of back surgery History of cholecystectomy History of left knee replacement History of surgery Fractured Arm (Steel Plate & 7 Screws) History of right shoulder replacement History of hysterectomy (~1984) Family History Family History Father Hypertension, Onset Age: 70 Cerebrovascular accident, Onset Age: 70 Mother Hypertension, Onset Age: 81 Cerebrovascular accident Sibling Asthma Family history of arthritis Family history of hearing loss Grandparent Family history of malignant neoplasm of breast in first degree relative Social History Social History Smoking status: Never smoker Second hand tobacco smoke exposure: No Alcohol intake: never Alcohol use details: STATES VERY RARELY - HOLIDAYS Substance use: never Substance use type: does not use Do You Feel Safe in your Home?: Yes Lack of Transportation: No Lack of Food: Never True Current Housing: I Have Housing Concerned About Future Housing: No Difficulty Paying Gas/Electric Bills: No Difficulty Paying for Meds: No Currently Unemployed: No Education: Decline to Answer Difficulty w/ Childcare or Family Care: No Living arrangements: with family Gender identity (if verbalized by the patient): Female Spiritual care concerns: No Meds Home Medications and Allergies Home Medications ?Medication ?Instructions ?Recorded ?Confirmed ?Type cholecalciferol (vitamin D3) 25 25 mcg PO QAM 02/09/21 07/30/24 History mcg (1,000 unit) capsule mecobalamin (vitamin B12) 1,000 1,000 mcg PO QAM 02/09/21 07/30/24 History mcg chewable tablet apixaban 2.5 mg tablet (Eliquis) 2.5 mg PO BID 05/18/23 07/30/24 History rosuvastatin 5 mg tablet See Rx Instructions .Route 04/03/24 07/30/24 Rx .COMPLEX #90 tabs carbidopa 25 mg-levodopa 100 mg See Rx Instructions .Route 07/16/24 07/30/24 Rx tablet .COMPLEX #450 tabs levothyroxine 112 mcg tablet 112 mcg PO DAILY #90 tabs 07/17/24 07/30/24 Rx (Levo-T) metoprolol tartrate 100 mg tablet 100 mg PO BID #180 tabs 07/19/24 07/30/24 Rx amlodipine 5 mg tablet 5 mg PO .daily 07/30/24 07/30/24 History Allergies Allergy/AdvReac Type Severity Reaction Status Date / Time No Known Allergies Allergy Verified 07/30/24 14:27 Vital Signs Vital Signs - 24 hr 07/30/24 14:11 07/30/24 14:19 07/30/24 14:19 Temperature 97.9 F Pulse Rate 104 H 99 Respiratory Rate 21 H Blood Pressure 153/88 H Pulse Oximetry 84 L 93 Oxygen Delivery Room Air Nasal Cannula Oxygen Flow Rate 4 Fraction of Inspired Oxygen 07/30/24 15:19 07/30/24 15:19 07/30/24 15:25 Temperature Pulse Rate 100 104 H Respiratory Rate 28 H 36 H Blood Pressure Pulse Oximetry 92 Oxygen Delivery Nasal Cannula Oxygen Flow Rate 4 Fraction of Inspired Oxygen 36 07/30/24 15:58 Temperature Pulse Rate 109 H Respiratory Rate 17 Blood Pressure 161/90 H Pulse Oximetry 93 Oxygen Delivery Oxygen Flow Rate Fraction of Inspired Oxygen Exam Narrative: General: well appearing, appears stated age. HEENT: normocephalic, atraumatic. Mucous membranes moist. EOMI, PERRLA, bilateral sclera anicteric, no conjunctival injection. Neck supple without JVD, lymphadenopathy, or bruit. Respiratory: Coarse rhonchi arts rales with wet cough Cardiovascular: Regular rate and rhythm, normal S1-S2 upon ascultation. No murmurs, rubs, or clicks. PMI is nondisplaced, capillary refill less than 3 second. Abdomen: Soft, round, no pulsatile masses, nondistended and nontender. No destini ound, no guarding. No CVA tenderness, no hepatosplenomegaly. Bowel sounds present to all four quadrants. No high pitch or tinkling sounds, resonant to percussion. Extremities: No cyanosis, clubbing, or edema present. Pulses are palpable 2/2. Active ROM to all four extremities. Neuro: Alert and orientated x 4. PERRLA. Cranial nerves 2-12 intact without focal deficit. Skin: Warm, dry, and intact, without rash, erythema, or lesion. Psych: pleasant, cooperative, normal speech, normal affect, no hallucinations, no dysarthia 4 L nasal cannula H&P: Results Labs Labs: Short CBC 07/30/24 Range/Units 14:32 WBC 7.8 (4.5-10.0) K/mm3 Hgb 15.4 H (12.0-15.0) g/dL Hct 47.0 (37.0-47.0) % Plt Count 186 (150-375) k/mm3 BMP 07/30/24 14:32 Sodium 136 L Potassium 3.8 Chloride 103 Carbon Dioxide 28 BUN 23 H Creatinine 0.60 L Glucose 96 Calcium 9.0 Liver Function 07/30/24 Range/Units 14:32 Total Bilirubin 1.4 H (0.2-1.3) mg/dL AST 23 (14-36) U/L ALT 5 L (6-35) U/L Alkaline Phosphatase 101 (38-126) U/L Albumin 4.0 (3.5-5.1) g/dL Assessment and Plan Assessment and plan (1) Influenza A: Code(s): J10.1 - Influenza due to other identified influenza virus with other respiratory manifestations Status: Acute Assessment and Plan: Tamiflu Q.6 breathing treatments Isolation (2) CHF exacerbation: Code(s): I50.9 - Heart failure, unspecified Status: Acute Assessment and Plan: BNP 3840 and mild pulmonary edema on chest x-ray Unable to find history of CHF, patient not on home diuretics Cardiology consulted Echocardiogram pending IV Lasix b.i.d. Daily weights 1600 fluid restriction (3) Acute respiratory distress: Code(s): R06.03 - Acute respiratory distress Status: Acute Assessment and Plan: Secondary to pulmonary edema and influenza a See above (4) Atrial fibrillation: Qualifiers: Atrial fibrillation type: unspecified Qualified Code(s): I48.91 - Unspecified atrial fibrillation Code(s): I48.91 - Unspecified atrial fibrillation Status: Acute Assessment and Plan: Restart home metoprolol, and Eliquis (5) Hyperlipidemia: Qualifiers: Hyperlipidemia type: mixed hyperlipidemia Qualified Code(s): E78.2 - Mixed hyperlipidemia Code(s): E78.5 - Hyperlipidemia, unspecified Status: Acute Assessment and Plan: Restart Crestor (6) Essential hypertension: Code(s): I10 - Essential (primary) hypertension Status: Acute Assessment and Plan: Restart amlodipine (7) Parkinson's 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, without mention of fluctuations: Qualifiers: Fluctuating manifestations: without fluctuating manifestations Qualified Code(s): G20.A1 - Parkinson's 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, without mention of fluctuations Code(s): G20.A1 - Parkinson's 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, without mention of fluctuations Status: Acute Plan Patient has chronic hemoconcentration likely due to chronic hypoxia and restrictive lung disease Quality VTE Prophylaxis VTE prophylaxis: mechanical ordered Hospitalist MIPS Advance Care Plan I have confirmed that the patient's Advanced Care Plan is present, code status is documented, or surrogate decision maker is listed in patient medical record.: Yes Medication Reconciliation I have utilized all available resources to obtain, update and review the patients current medications (includes all prescriptions, OTC, herbals, cannabis, and nutritional supplements).: Yes
[2024-07-30] MEDS: OSELTAMIVIR PHOSPHATE 75 MG CAPSULE PO (17:12)
--- NOTE | 2024-07-30 17:18 | PC.NURSE ---
Meal tray ordered for pt
[2024-07-30] MEDS: methylPREDNISolone SOD SUCC 125 MG VIAL 60 MG IV PUSH ×2 (18:38→23:15)
--- NOTE | 2024-07-30 19:21 | ADMGEN ---
This patient, Jing Garcias, was admitted to [facility] Surg Room 331-01. Patient/family oriented to hospital policies and general routines including ID bracelet, bed and alarms, visiting hours, pain management, procedures, bathroom and other care routines, personal items, smoking policy, room service/diet, and visiting hours. Information on how to activate the Rapid Response Team has been discussed. Patient/Family are encouraged to report perceived risks to care and to ask questions if they do not understand what they are told or what they should do.
[2024-07-30] MEDS: FUROSEMIDE INJ 40 MG/4 ML VIAL IV PUSH (21:58)
[2024-07-30] MEDS: METOPROLOL TARTRATE 50 MG TAB 100 MG PO (23:15)
[2024-07-30] MEDS: APIXABAN 2.5 MG TABLET PO (23:15)
[2024-07-30] MEDS: CARBIDOPA/LEVODOPA 25/100 MG TABLET 1 TABLET BY MOUTH (23:15)
[2024-07-30] MEDS: guaiFENesin/DEXTROMETHORPHAN 10 ML UDC PO (23:17)
[2024-07-31] VITALS (16 sets, daily range): BP systolic 139–160; BP diastolic 67–96; PULSE 84–128; RESP 17–25; TEMP 36.4–37; O2SAT 86–96
[2024-07-31] MEDS: IPRATROPIUM 0.5 MG/ALBUTEROL SULFATE 2.5 MG AMPUL.NEB 3 ML INHALATION ×2 (02:45→09:10)
[2024-07-31] MEDS: methylPREDNISolone SOD SUCC 125 MG VIAL 60 MG IV PUSH ×4 (05:27→23:34)
[2024-07-31] MEDS: OSELTAMIVIR PHOSPHATE 75 MG CAPSULE PO ×2 (05:27→17:17)
[2024-07-31] MEDS: guaiFENesin/DEXTROMETHORPHAN 10 ML UDC PO ×2 (05:27→08:52)
[2024-07-31] MEDS: LEVOTHYROXINE SODIUM 112 MCG TABLET PO (05:27)
[2024-07-31] MEDS: CARBIDOPA/LEVODOPA 25/100 MG TABLET 2 TABLET BY MOUTH ×2 (05:28→12:14)
[2024-07-31] MEDS: METOPROLOL TARTRATE 50 MG TAB 100 MG PO ×2 (08:52→20:39)
[2024-07-31] MEDS: APIXABAN 2.5 MG TABLET PO (08:52)
[2024-07-31] MEDS: FUROSEMIDE INJ 40 MG/4 ML VIAL IV PUSH ×2 (08:53→17:17)
[2024-07-31] MEDS: ROSUVASTATIN 5 MG TABLET BY MOUTH (08:53)
[2024-07-31] MEDS: amLODIPine BESYLATE 5 MG TABLET PO (08:53)
--- NOTE | 2024-07-31 09:58 | ECG_ITS ---
Test Date: 2024-07-31 10:19:02 Measurements Intervals [place] Rate: 104 P: 0 MO: 0 QRS: 42 QRSD: 110 T: -35 QT: 341 QTc: 450 Interpretive Statements ATRIAL FIBRILLATION WITH RAPID VENTRICULAR RESPONSE NONSPECIFIC ST & T-WAVE ABNORMALITY Compared to ECG 07/30/2024 14:18:19 Incomplete right bundle-branch block no longer present Possible ischemia no longer present T-wave abnormality still present Electronically Signed On 07-31-2024 22:46:08 CASING TRIMMER by Claudette Salinas M.D.
[2024-07-31 10:59] LABS: NT Pro B Type Natriuretic Pept 4430 pg/mL (19.9-100)
--- NOTE | 2024-07-31 11:07 | PM.IMPN ---
Progress Note: A&P Assessment and Plan (1) Influenza A: Code(s): J10.1 - Influenza due to other identified influenza virus with other respiratory manifestations Status: Acute (2) CHF exacerbation: Code(s): I50.9 - Heart failure, unspecified Status: Acute (3) Acute respiratory distress: Code(s): R06.03 - Acute respiratory distress Status: Inactive (4) Atrial fibrillation: Qualifiers: Atrial fibrillation type: unspecified Qualified Code(s): I48.91 - Unspecified atrial fibrillation Code(s): I48.91 - Unspecified atrial fibrillation Status: Acute (5) Hyperlipidemia: Qualifiers: Hyperlipidemia type: mixed hyperlipidemia Qualified Code(s): E78.2 - Mixed hyperlipidemia Code(s): E78.5 - Hyperlipidemia, unspecified Status: Acute (6) Essential hypertension: Code(s): I10 - Essential (primary) hypertension Status: Acute (7) Parkinson's 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, without mention of fluctuations: Qualifiers: Fluctuating manifestations: without fluctuating manifestations Qualified Code(s): G20.A1 - Parkinson's 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, without mention of fluctuations Code(s): G20.A1 - Parkinson's 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, without mention of fluctuations Status: Acute Plan This is an 83-year-old female presents to the ED with increased generalized weakness fatigue and went to urgent care where she was found to be hypoxic. She also reported cough. On the ED evaluation she was hypoxic 84% on room air was placed on 4 L oxygen via nasal cannula mildly tachycardic. AFib on EKG. Laboratory data showed normal WBC 7.8 hemoglobin of 15.4 platelet 186 Chem panel was unremarkable. BNP was elevated at 3840. Influenza RSV COVID swab tested positive for influenza A. Chest x-ray showed mild pulmonary vascular congestion with small bilateral pleural effusion and adjacent compressive atelectasis. Patient on chronic anticoagulation with apixaban. Patient admitted started on Tamiflu for influenza a. Will check procalcitonin Also treated for acute congestive heart failure. No prior diagnosis of congestive heart failure the she has been worked up for dyspnea on exertion in the past. Cardiology consulted. Echo ordered. IV Lasix b.i.d. repeat E chest x-ray with improved congestion. Because of atrial fibrillation will change DuoNeb to Xopenex and ipratropium. Droplet isolation to continue. Last echo 2021 with EF 70% trace TR RVSP 37 mild LVH Atrial fibrillation with rapid ventricular rate cardiology on board changed to Xopenex continue home metoprolol and Eliquis Hypertension Hyperlipidemia Parkinson's disease Sleep apnea uses oxygen at night Restrictive lung disease with kyphosis plans to get a portable oxygen concentrator in the past per pulmonary note and family. Will need home oxygen evaluation at the time of discharge to evaluate this. Hypothyroidism DVT prophylaxis on Eliquis Code status do not resuscitate Subjective Date/time seen: 07/31/24 11:07 Interval history: Patient oxygen requirement has inclined today to 8 liter/minute. AFib with RVR persist. Feels tired. Breathing treatment did help with her breathing. Complains of cough. Family at bedside. Review of Systems Review of Systems: All systems reviewed & are unremarkable except as noted in HPI and below Exam Narrative: General: Ill-appearing, not in acute distress mildly tachypneic HEENT: normocephalic, atraumatic. Respiratory: Coarse rhonchi bilaterally with rales with wet cough Cardiovascular: Irregular rhythm mildly tachycardic, S1 S2 Abdomen: Soft, round, no pulsatile masses, nondistended and nontender. No rebound, no guarding. No CVA tenderness, no hepatosplenomegaly. Bowel sounds present to all four quadrants. No high pitch or tinkling sounds, resonant to percussion. Extremities: No cyanosis, clubbing, or edema present. Pulses are palpable 2/2. Active ROM to all four extremities. Neuro: Alert and orientated x 4. PERRLA. Cranial nerves 2-12 intact without focal deficit. Skin: Warm, dry, and intact, without rash, erythema, or lesion. Psych: pleasant, cooperative, normal speech, normal affect, no hallucinations, no dysarthia Objective Data Vital Signs Vital Signs: Vital Signs - 24 hr 07/30/24 14:11 07/30/24 14:19 07/30/24 14:19 Temperature 97.9 F Pulse Rate 104 H 99 Respiratory Rate 21 H Blood Pressure 153/88 H Pulse Oximetry 84 L 93 Oxygen Delivery Room Air Nasal Cannula Oxygen Flow Rate 4 Fraction of Inspired Oxygen 07/30/24 15:19 07/30/24 15:19 07/30/24 15:25 Temperature Pulse Rate 100 104 H Respiratory Rate 28 H 36 H Blood Pressure Pulse Oximetry 92 Oxygen Delivery Nasal Cannula Oxygen Flow Rate 4 Fraction of Inspired Oxygen 36 07/30/24 15:58 07/30/24 17:13 07/30/24 17:13 Temperature Pulse Rate 109 H 108 H Respiratory Rate 17 22 H Blood Pressure 161/90 H 156/88 H Pulse Oximetry 93 94 94 Oxygen Delivery Nasal Cannula Oxygen Flow Rate 4 Fraction of Inspired Oxygen 07/30/24 18:22 07/30/24 20:55 07/30/24 21:52 Temperature 97.6 F 97.6 F Pulse Rate 102 H 115 H 116 H Respiratory Rate 25 H 20 26 H Blood Pressure 146/88 H 143/84 H Pulse Oximetry 93 90 Oxygen Delivery Oxygen Flow Rate Fraction of Inspired Oxygen 07/30/24 21:59 07/30/24 22:00 07/30/24 23:15 Temperature Pulse Rate 111 H 96 Respiratory Rate 24 H Blood Pressure Pulse Oximetry 92 Oxygen Delivery Nasal Cannula Oxygen Flow Rate 4 Fraction of Inspired Oxygen 07/31/24 02:45 07/31/24 02:54 07/31/24 06:00 Temperature 97.8 F Pulse Rate 84 87 98 Respiratory Rate 22 H 22 H 17 Blood Pressure 146/96 H Pulse Oximetry 90 Oxygen Delivery Oxygen Flow Rate Fraction of Inspired Oxygen 07/31/24 06:20 07/31/24 06:25 07/31/24 08:50 Temperature Pulse Rate 113 H Respiratory Rate 25 H Blood Pressure 144/88 H Pulse Oximetry 86 L 91 91 Oxygen Delivery Nasal Cannula High Flow Nasal Cannula Oxygen Flow Rate 5 6 Fraction of Inspired Oxygen 07/31/24 08:50 07/31/24 08:52 07/31/24 09:10 Temperature Pulse Rate 113 H 112 H Respiratory Rate 24 H Blood Pressure Pulse Oximetry 91 Oxygen Delivery High Flow Nasal Cannula Oxygen Flow Rate 7 Fraction of Inspired Oxygen 07/31/24 09:10 07/31/24 09:20 Temperature Pulse Rate 109 H Respiratory Rate 24 H Blood Pressure Pulse Oximetry 92 Oxygen Delivery High Flow Nasal Cannula Oxygen Flow Rate 8 Fraction of Inspired Oxygen Intake/Output Intake/Output: Intake & Output 07/28/24 07/29/24 07/30/24 07/31/24 23:59 23:59 23:59 23:59 Output Total 750 Balance -750 Meds/Results Medications: Active Medications Generic Name Dose Route Start Last Admin Trade Name Freq PRN Reason Stop Dose Admin Acetaminophen 650 mg 07/30/24 16:59 Acetaminophen 325 Mg Tablet PO Q4H PRN Mild Pain (1-3) or Fever Hydrocodone Bitart/Acetaminophen 1 tab 07/30/24 16:59 Hydrocodone/Acetaminophen (*Crx) 5-325 Mg Tablet PO Q4H PRN Pain Rated 4-6 Amlodipine Besylate 5 mg 07/31/24 09:00 07/31/24 08:53 Amlodipine Besylate 5 Mg Tablet PO 5 mg DAILY PERFECTO Administration Apixaban 2.5 mg 07/30/24 21:00 07/31/24 08:52 Apixaban 2.5 Mg Tablet PO 2.5 mg Q12HR PERFECTO Administration Carbidopa/Levodopa 2 tablet 07/31/24 06:00 07/31/24 05:28 Carbidopa/Levodopa 25/100 Mg Tablet BY MOUTH 2 tablet 0600,1200 PERFECTO Administration Carbidopa/Levodopa 1 tablet 07/30/24 22:55 07/30/24 23:15 Carbidopa/Levodopa 25/100 Mg Tablet BY MOUTH 1 tablet HS PERFECTO Administration Furosemide 40 mg 07/31/24 09:00 07/31/24 08:53 Furosemide Inj 40 Mg/4 Ml Vial IV PUSH 40 mg BID PERFECTO Administration Guaifenesin/Dextromethorphan 10 ml 07/31/24 01:00 07/31/24 08:52 Guaifenesin/Dextromethorphan 10 Ml Udc PO 10 ml Q4HR PERFECTO Administration Ipratropium [place] 0.5 mg 07/31/24 14:00 Ipratropium Br 0.02% Inh Soln 0.5 Mg/2.5 Ml Vial INHALATION Q6HRT PERFECTO Levalbuterol HCl 1.25 mg 07/31/24 14:00 Levalbuterol Neb 1.25 Mg/3 Ml INHALATION Q6HRT PERFECTO Levothyroxine Sodium 112 mcg 07/31/24 06:30 07/31/24 05:27 Levothyroxine Sodium 112 Mcg Tablet PO 112 mcg DAILY@0630 PERFECTO Administration Methylprednisolone Sodium Succinate 60 mg 07/30/24 18:00 07/31/24 05:27 Methylprednisolone Sod Succ 125 Mg Vial IV PUSH 60 mg Q6HR PERFECTO Administration Metoprolol Tartrate 100 mg 07/30/24 22:50 07/31/24 08:52 Metoprolol Tartrate 50 Mg Tab PO 100 mg Q12HR PERFECTO Administration Ondansetron HCl 4 mg 07/30/24 16:59 Ondansetron Inj 4 Mg/2 Ml Vial IV PUSH Q4H PRN Nausea Oseltamivir Phosphate 75 mg 07/31/24 06:00 07/31/24 05:27 Oseltamivir Phosphate 75 Mg Capsule PO 08/05/24 05:59 75 mg Q12H PERFECTO Administration Perflutren Lipid Microsphere 0 ml 07/30/24 17:10 Perflutren Lipid Microspheres 1.5 Ml Vial Diluted To 10 Ml Total Volume IV PUSH 08/02/24 17:10 ONCE PRN adequate visualization Protocol Rosuvastatin Calcium 5 mg 07/31/24 09:00 07/31/24 08:53 Rosuvastatin 5 Mg Tablet BY MOUTH 5 mg DAILY PERFECTO Administration Radiology Results: ITS Impressions Chest X-Ray 07/31/24 10:33 Impression: Central congestive change with probable minimal bibasilar pulmonary edema/atelectatic change. Labs Labs: Laboratory Results - last 24 hr 07/30/24 07/30/24 07/31/24 14:32 15:18 10:33 WBC 7.8 RBC 5.25 Hgb 15.4 H Hct 47.0 MCV 89.5 MCH 29.3 MCHC 32.8 RDW 15.1 H Plt Count 186 MPV 9.9 Immature Gran % (Auto) 0.3 Neut % (Auto) 82.3 H Lymph % (Auto) 6.6 L [place] % (Auto) 10.7 H Eos % (Auto) 0.0 Baso % (Auto) 0.1 L Lymph # (Auto) 0.52 L [place] # (Auto) 0.8 H Eos # (Auto) 0.0 Baso # (Auto) 0.0 Abs Immat Gran (auto) 0.02 Absolute Neuts (auto) 6.5 Absolute Nucleated RBC 0.000 Nucleated RBC % 0.0 Sodium 136 L Potassium 3.8 Chloride 103 Carbon Dioxide 28 Anion Gap 5 BUN 23 H Creatinine 0.60 L Estim Creat Clear Calc 61 Estimated GFR > 60 Glucose 96 Calcium 9.0 Total Bilirubin 1.4 H AST 23 ALT 5 L Alkaline Phosphatase 101 NT-Pro-B Natriuret Pep 3840 H 4430 H Total Protein 7.0 Albumin 4.0 Influenza A (RT-PCR) Positive A Influenza B (RT-PCR) Negative RSV (RT-PCR) Negative SARS-CoV-2 RNA (RT-PCR) Negative
[2024-07-31 12:04] LABS: Procalcitonin 0.1 ng/mL
[2024-07-31] MEDS: guaiFENesin 12 HR 600 MG TABCR PO ×2 (12:14→20:39)
--- NOTE | 2024-07-31 12:18 | P.CONCA_ITS ---
Assessment and Plan Assessment and plan (1) Atrial fibrillation: Qualifiers: Atrial fibrillation type: unspecified Qualified Code(s): I48.91 - Unspecified atrial fibrillation Code(s): I48.91 - Unspecified atrial fibrillation Status: Acute Assessment and Plan: She has longstanding atrial fibrillation managed with metoprolol for rate control. Her heart rate is intermittently mildly elevated in the setting of viral illness with influenza A. Continue with metoprolol 100mg b.i.d. for now - can be up titrated if need be and if blood pressure allows. She is anticoagulated with apixaban. Our office records indicate she is on 5mg eliquis b.i.d, but she is only receiving 2.5mg b.i.d. here. She does not meet criteria for dose adjustment based on age, weight, renal function, so recommend increasing apixaban to therapeutic dose of 5mg b.i.d. for cardioembolic risk reduction unless there is some contraindication I am unaware of. (2) CHF exacerbation: Code(s): I50.9 - Heart failure, unspecified Status: Acute Assessment and Plan: She has evidence of CHF with CXR showing small bilateral pleural effusions. She has been started on furosemide and reports improvement of dyspnea. She does not have any peripheral edema or JVD. Previous echo (2021) showed normal LV systolic function with indeterminate diastolic function and no significant valve pathology. Repeat echo is pending. Continue with furosemide for now and await echo results - further recommendations to follow. Wonder if pulmonary edema is related to a secondary bacterial pneumonia vs. CHF. Check daily BMP while on IV furosemide and replete electrolytes with goals Mag 2.0 and K+ 4.0. (3) Influenza A: Code(s): J10.1 - Influenza due to other identified influenza virus with other respiratory manifestations Status: Acute Assessment and Plan: Supportive care. Management per hospitalist service. History of Present Illness History of Present Illness Consult date/time: 07/31/24 12:18 Requesting physician: Isa Lee APRN Consult reason: atrial fibrillation and congestive heart failure Reason For Visit: influenza A, hypoxia Narrative: Jing Garcias is an 83-year-old female with longstanding persistent atrial fibrillation. This is a patient who is followed in our office by Dr. Salinas. She comes to the hospital from urgent care because of hypoxia. Cardiology is consulted because of atrial fibrillation and CHF. Patient states she has been experiencing progressive shortness of breath for about a month. Reports noticing dyspnea while walking at [employer] and feeling as if she needed to stop to catch her breath. She denies any orthopnea, edema, palpitations. She has been given IV furosemide and reports feeling less short of breath today. She has also been found to have influenza A. She is comfortable and in no acute distress at the time of my evaluation. Review of Systems 2 Review of Systems: All systems reviewed & are unremarkable except as noted in HPI and below PMFSH Past Medical History Medical History Atherosclerosis of aorta Other thrombophilia Neoplasm of uncertain behavior of skin Anticoagulation adequate with anticoagulant therapy Plantar callus PND (post-nasal drip) Restrictive lung disease Compression fracture of L1 lumbar vertebra Systolic murmur Shortness of breath on exertion Essential hypertension Hyperlipidemia Hypothyroidism (acquired) Post-menopausal Surgical History Surgical History History of left shoulder replacement (~09/17/21) History of kyphoplasty (~01/2021) History of back surgery History of cholecystectomy History of left knee replacement History of surgery Fractured Arm (Steel Plate & 7 Screws) History of right shoulder replacement History of hysterectomy (~1984) Family History Family History Father Hypertension, Onset Age: 70 Cerebrovascular accident, Onset Age: 70 Mother Hypertension, Onset Age: 81 Cerebrovascular accident Sibling Asthma Family history of arthritis Family history of hearing loss Grandparent Family history of malignant neoplasm of breast in first degree relative Social History Social History Smoking status: Never smoker Second hand tobacco smoke exposure: No Alcohol intake: never Alcohol use details: STATES VERY RARELY - [place] Substance use: never Substance use type: does not use Do You Feel Safe in your Home?: Yes Lack of Transportation: No Lack of Food: Never True Current Housing: I Have Housing Concerned About Future Housing: No Difficulty Paying Gas/Electric Bills: No Difficulty Paying for Meds: No Currently Unemployed: No Education: Decline to Answer Difficulty w/ Childcare or Family Care: No Living arrangements: with family Gender identity (if verbalized by the patient): Female Spiritual care concerns: No Meds Home Medications and Allergies Home Medications ?Medication ?Instructions ?Recorded ?Confirmed ?Type cholecalciferol (vitamin D3) 25 25 mcg PO QAM 02/09/21 07/30/24 History mcg (1,000 unit) capsule mecobalamin (vitamin B12) 1,000 1,000 mcg PO QAM 02/09/21 07/30/24 History mcg chewable tablet apixaban 2.5 mg tablet (Eliquis) 2.5 mg PO BID 05/18/23 07/30/24 History rosuvastatin 5 mg tablet See Rx Instructions .Route 04/03/24 07/30/24 Rx .COMPLEX #90 tabs carbidopa 25 mg-levodopa 100 mg See Rx Instructions .Route 07/16/24 07/30/24 Rx tablet .COMPLEX #450 tabs levothyroxine 112 mcg tablet 112 mcg PO DAILY #90 tabs 07/17/24 07/30/24 Rx (Levo-T) metoprolol tartrate 100 mg tablet 100 mg PO BID #180 tabs 07/19/24 07/30/24 Rx amlodipine 5 mg tablet 5 mg PO .daily 07/30/24 07/30/24 History Allergies Allergy/AdvReac Type Severity Reaction Status Date / Time No Known Allergies Allergy Verified 07/30/24 14:27 Vital Signs Vital Signs - 24 hr 07/30/24 14:11 07/30/24 14:19 07/30/24 14:19 Temperature 36.6 C Pulse Rate 104 H 99 Respiratory Rate 21 H Blood Pressure 153/88 H Pulse Oximetry 84 L 93 Oxygen Delivery Room Air Nasal Cannula Oxygen Flow Rate 4 Fraction of Inspired Oxygen 07/30/24 15:19 07/30/24 15:19 07/30/24 15:25 Temperature Pulse Rate 100 104 H Respiratory Rate 28 H 36 H Blood Pressure Pulse Oximetry 92 Oxygen Delivery Nasal Cannula Oxygen Flow Rate 4 Fraction of Inspired Oxygen 36 07/30/24 15:58 07/30/24 17:13 07/30/24 17:13 Temperature Pulse Rate 109 H 108 H Respiratory Rate 17 22 H Blood Pressure 161/90 H 156/88 H Pulse Oximetry 93 94 94 Oxygen Delivery Nasal Cannula Oxygen Flow Rate 4 Fraction of Inspired Oxygen 07/30/24 18:22 07/30/24 20:55 07/30/24 21:52 Temperature 36.4 C 36.4 C Pulse Rate 102 H 115 H 116 H Respiratory Rate 25 H 20 26 H Blood Pressure 146/88 H 143/84 H Pulse Oximetry 93 90 Oxygen Delivery Oxygen Flow Rate Fraction of Inspired Oxygen 07/30/24 21:59 07/30/24 22:00 07/30/24 23:15 Temperature Pulse Rate 111 H 96 Respiratory Rate 24 H Blood Pressure Pulse Oximetry 92 Oxygen Delivery Nasal Cannula Oxygen Flow Rate 4 Fraction of Inspired Oxygen 07/31/24 02:45 07/31/24 02:54 07/31/24 06:00 Temperature 36.6 C Pulse Rate 84 87 98 Respiratory Rate 22 H 22 H 17 Blood Pressure 146/96 H Pulse Oximetry 90 Oxygen Delivery Oxygen Flow Rate Fraction of Inspired Oxygen 07/31/24 06:20 07/31/24 06:25 07/31/24 08:50 Temperature Pulse Rate 113 H Respiratory Rate 25 H Blood Pressure 144/88 H Pulse Oximetry 86 L 91 91 Oxygen Delivery Nasal Cannula High Flow Nasal Cannula Oxygen Flow Rate 5 6 Fraction of Inspired Oxygen 07/31/24 08:50 07/31/24 08:52 07/31/24 09:10 Temperature Pulse Rate 113 H 112 H Respiratory Rate 24 H Blood Pressure Pulse Oximetry 91 Oxygen Delivery High Flow Nasal Cannula Oxygen Flow Rate 7 Fraction of Inspired Oxygen 07/31/24 09:10 07/31/24 09:20 Temperature Pulse Rate 109 H Respiratory Rate 24 H Blood Pressure Pulse Oximetry 92 Oxygen Delivery High Flow Nasal Cannula Oxygen Flow Rate 8 Fraction of Inspired Oxygen Exam 2 Const: General: comfortable, no acute distress, alert and awake O rientation/consciousness: patient oriented x3 HENMT: Head: normal to inspection Eyes: General: appearance normal, both eyes and all related structures P upils: Equal, round and reactive pupils present Neck: Neck: normal visual inspection, supple and no JVD Resp: Effort & Inspection: normal respiratory effort Auscultation: not clear to auscultation bilaterally, rales and rhonchi Cardio: Rate: regular rate Rhythm: abnormal rhythm irregularly irregular Heart sounds: S1 normal heart sound present, S2 normal heart sound present and Murmur heart sound present systolic GI: Auscultation: normal bowel sounds Skin: General skin exam: normal color Neuro: General: patient oriented x3 Cranial nerves: Yes Equal, round and reactive pupils present Extrem: General: normal to inspection Other: no edema Psych: Appearance: grossly normal Mental Status: mental status grossly normal Results Labs and Meds 07/30/24 14:32 07/30/24 14:32 Lab results: Cardiac Enzymes 07/30/24 Range/Units 14:32 AST 23 (14-36) U/L CBC 07/30/24 Range/Units 14:32 WBC 7.8 (4.5-10.0) K/mm3 RBC 5.25 (4.2-5.4) M/mm3 Hgb 15.4 H (12.0-15.0) g/dL Hct 47.0 (37.0-47.0) % Plt Count 186 (150-375) k/mm3 Lymph # (Auto) 0.52 L (0.9-3.2) K/mm3 [place] # (Auto) 0.8 H (0.1-0.6) K/mm3 Eos # (Auto) 0.0 (0-0.3) K/mm3 Baso # (Auto) 0.0 (0.0-0.1) K/mm3 Comprehensive Metabolic Panel 07/30/24 Range/Units 14:32 Sodium 136 L (137-145) mmol/L Potassium 3.8 (3.4-5.0) mmol/L Chloride 103 (98-107) mmol/L Carbon Dioxide 28 (22-30) mmol/L BUN 23 H (7-17) mg/dL Creatinine 0.60 L (0.7-1.0) mg/dL Glucose 96 (65-110) mg/dL Calcium 9.0 (8.4-10.2) mg/dL AST 23 (14-36) U/L ALT 5 L (6-35) U/L Alkaline Phosphatase 101 (38-126) U/L Total Protein 7.0 (6.3-8.2) g/dL Albumin 4.0 (3.5-5.1) g/dL Intake and Output 07/30/24 07/31/24 07/31/24 23:59 07:59 15:59 Intake Total 240 Output Total 750 Balance -750 240 Intake: Oral 240 Output: Catheter Urine 750 External/Condom 750 Patient Weight 07/31/24 23:59 Weight 74.5 kg
[2024-07-31 12:20] LABS: Alveolar/Arterial O2 Gradient 237.7 mmHg; Base Excess ABG 7.7 mEq/l (+/-2.0); Fractional Inspired Oxygen 52 %; HCO3 ABG 34.1 mEq/l (22.0-26.0); Oxygen Content ABG 22.6 %vol (16.0-22.0); Oxygen Saturation ABG 94.8 % (95.0-100.0); Oxyhemoglobin 94.1 % THb (90.0-100.0); PCO2 ABG 53.3 mmHg (35.0-45.0); PO2 ABG 73.4 mmHg (80.0-100.0); PO2 FiO2 Ratio Arterial Blood 1.41 %; Total Hemoglobin 17.1 g/dL (12.0-18.0); pH ABG 7.424 (7.350-7.450)
[2024-07-31 12:24] LABS: Device HIGH FLOW NASAL CANN; Site Drawn LEFT BRACHIAL
[2024-07-31] MEDS: IPRATROPIUM BR 0.02% INH SOLN 0.5 MG/2.5 ML VIAL INHALATION (15:06)
[2024-07-31] MEDS: LEVALBUTEROL NEB 1.25 MG/3 ML INHALATION (15:06)
[2024-07-31] MEDS: CARBIDOPA/LEVODOPA 25/100 MG TABLET 1 TABLET BY MOUTH (20:39)
[2024-07-31] MEDS: APIXABAN 5 MG TABLET PO (20:39)
--- NOTE | 2024-07-31 23:09 | PCRCNOTE ---
Window of time for administration has passed. See next scheduled administration.
[2024-08-01] VITALS (21 sets, daily range): BP systolic 128–144; BP diastolic 78–87; PULSE 80–129; RESP 18–22; TEMP 36.4–36.7; O2SAT 86–95
[2024-08-01] MEDS: IPRATROPIUM BR 0.02% INH SOLN 0.5 MG/2.5 ML VIAL INHALATION ×4 (02:15→20:54)
[2024-08-01] MEDS: LEVALBUTEROL NEB 1.25 MG/3 ML INHALATION ×4 (02:15→20:54)
[2024-08-01] MEDS: methylPREDNISolone SOD SUCC 125 MG VIAL 60 MG IV PUSH ×3 (05:16→17:19)
[2024-08-01] MEDS: OSELTAMIVIR PHOSPHATE 75 MG CAPSULE PO ×2 (05:16→17:19)
[2024-08-01] MEDS: CARBIDOPA/LEVODOPA 25/100 MG TABLET 2 TABLET BY MOUTH ×2 (05:16→11:15)
[2024-08-01] MEDS: LEVOTHYROXINE SODIUM 112 MCG TABLET PO (05:17)
[2024-08-01 08:02] LABS: Glucose Point of Care 166 mg/dl (65-105)
[2024-08-01 08:10] LABS: Basophils Percent Auto 0.1 % (0.2-1.2); Hematocrit 54.5 % (37.0-47.0); Hemoglobin 17.5 g/dL (12.0-15.0); Immature Granulocyte Absolute 0.03 K/mm3 (0.00-0.031); Immature Granulocyte Percent A 0.3 % (0-0.5); Lymphocytes Absolute Auto 0.49 K/mm3 (0.9-3.2); Lymphocytes Percent Auto 4.8 % (18.3-44.2); Mean Corpuscular HGB Conc 32.1 g/dl (32-36); Mean Corpuscular Hemoglobin 29.2 pg (26-34); Mean Corpuscular Volume 90.8 fl (80-100); Mean Platelet Volume 10.5 fl (7.4-10.4); Monocytes Absolute Auto 0.4 K/mm3 (0.1-0.6); Neutrophils Absolute Auto 9.3 K/mm3 (1.3-6.7); Neutrophils Percent Auto 90.8 % (45.5-73.1); Platelet Count Result 228 k/mm3 (150-375); Red Cell Distribution Width 14.7 % (11.5-14.5); White Blood Count 10.2 K/mm3 (4.5-10.0)
[2024-08-01 08:27] LABS: Albumin Level 3.7 g/dL (3.5-5.1); Alkaline Phosphatase 84 U/L (38-126); Anion Gap 3 mmol/L (4-12); Aspartate Amino Transferase 21 U/L (14-36); Bilirubin,Total 0.8 mg/dL (0.2-1.3); Blood Urea Nitrogen 31 mg/dL (7-17); Calcium 9.2 mg/dL (8.4-10.2); Carbon Dioxide 36 mmol/L (22-30); Chloride 99 mmol/L (98-107); Estimated CRCL calculation 52 ml/min; Estimated Glomerular Filt Rate > 60; Glucose 137 mg/dL (65-110); Magnesium 2.1 mg/dL (1.6-2.3); Potassium 3.7 mmol/L (3.4-5.0); Sodium 138 mmol/L (137-145)
[2024-08-01] MEDS: FUROSEMIDE INJ 40 MG/4 ML VIAL IV PUSH ×2 (08:32→16:37)
[2024-08-01] MEDS: APIXABAN 5 MG TABLET PO ×2 (08:33→20:28)
[2024-08-01] MEDS: ROSUVASTATIN 5 MG TABLET BY MOUTH (08:33)
[2024-08-01] MEDS: METOPROLOL TARTRATE 50 MG TAB 100 MG PO ×2 (08:33→20:28)
[2024-08-01] MEDS: guaiFENesin 12 HR 600 MG TABCR PO ×2 (08:33→20:28)
[2024-08-01] MEDS: amLODIPine BESYLATE 5 MG TABLET PO (08:33)
[2024-08-01] MEDS: POTASSIUM CHLORIDE 20 MEQ ER TABLET 40 MEQ PO (08:40)
[2024-08-01 08:52] LABS: Alanine Aminotransferase < 6 U/L (6-35)
[2024-08-01] MEDS: DIGOXIN INJ 250 MCG/ML 2 ML AMP (*BKC) 500 MCG IV PUSH (10:25)
--- NOTE | 2024-08-01 13:39 | PM.IMPN ---
Progress Note: A&P Assessment and Plan (1) Influenza A: Code(s): J10.1 - Influenza due to other identified influenza virus with other respiratory manifestations Status: Acute (2) CHF exacerbation: Code(s): I50.9 - Heart failure, unspecified Status: Acute (3) Acute respiratory distress: Code(s): R06.03 - Acute respiratory distress Status: Inactive (4) Atrial fibrillation: Qualifiers: Atrial fibrillation type: unspecified Qualified Code(s): I48.91 - Unspecified atrial fibrillation Code(s): I48.91 - Unspecified atrial fibrillation Status: Acute (5) Hyperlipidemia: Qualifiers: Hyperlipidemia type: mixed hyperlipidemia Qualified Code(s): E78.2 - Mixed hyperlipidemia Code(s): E78.5 - Hyperlipidemia, unspecified Status: Acute (6) Essential hypertension: Code(s): I10 - Essential (primary) hypertension Status: Acute (7) Parkinson's 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, without mention of fluctuations: Qualifiers: Fluctuating manifestations: without fluctuating manifestations Qualified Code(s): G20.A1 - Parkinson's 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, without mention of fluctuations Code(s): G20.A1 - Parkinson's 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, without mention of fluctuations Status: Acute Plan This is an 83-year-old female presents to the ED with increased generalized weakness fatigue and went to urgent care where she was found to be hypoxic. She also reported cough. On the ED evaluation she was hypoxic 84% on room air was placed on 4 L oxygen via nasal cannula mildly tachycardic. AFib on EKG. Laboratory data showed normal WBC 7.8 hemoglobin of 15.4 platelet 186 Chem panel was unremarkable. BNP was elevated at 3840. Influenza RSV COVID swab tested positive for influenza A. Chest x-ray showed mild pulmonary vascular congestion with small bilateral pleural effusion and adjacent compressive atelectasis. Patient on chronic anticoagulation with apixaban. Patient admitted started on Tamiflu for influenza a. Will check procalcitonin Also treated for acute congestive heart failure. No prior diagnosis of congestive heart failure the she has been worked up for dyspnea on exertion in the past. Cardiology consulted. Echo ordered. IV Lasix b.i.d. repeat E chest x-ray with improved congestion. Because of atrial fibrillation will change DuoNeb to Xopenex and ipratropium. Droplet isolation to continue. Last echo 2021 with EF 70% trace TR RVSP 37 mild LVH Atrial fibrillation with rapid ventricular rate cardiology on board changed to Xopenex continue home metoprolol and Eliquis Hypertension Hyperlipidemia Parkinson's disease Sleep apnea uses oxygen at night Restrictive lung disease with kyphosis plans to get a portable oxygen concentrator in the past per pulmonary note and family. Will need home oxygen evaluation at the time of discharge to evaluate this. Hypothyroidism 08/01/24 - Assuming care. Continue Tamiflu for Influenza. Wean O2 as tolerated. She does have underlying O2 requirements but worse now. Encourage IS use. Consider a component of CHF as well. Remains on IV lasix. Echo ordered. Replace potassium to keep above 4.0. PT/OT ordered. Check CXR in the morning DVT prophylaxis on Eliquis Code status do not resuscitate Subjective Date/time seen: 08/01/24 13:39 Interval history: 83yo female with restrctive lung disease, HTN and chronic respiratory failure here for dyspnea. She wears 2L O2 with sleep but family feels she needs it more continuously. Patient oxygen requirement was 8 liter/minute overnight but higher this morning to 10L. Was given Digoxin x 1 this morning that burned as it was being administered. This feels better now. Slept well last night. Cough productive of light leyva sputum. No Cp. Slight SOB. Family at bedside. Exam Narrative: AF 97.6 144/87 107 20 92% 10L Gen - NARD Chest - bibasilar inspiratory crackles. nml RR CV -irregularly irregular. S1-S2. Telemetry showing AFib with RVR at times. Abd - Soft, NT/ND, Positive BS Ext - No pedal edema Neuro - Alert and appropriate Psych - Nml mood and affect Skin - Warm and dry Objective Data Vital Signs Vital Signs: Vital Signs - 24 hr 07/31/24 14:00 07/31/24 15:07 07/31/24 15:07 Temperature 98.6 F Pulse Rate 100 103 H Respiratory Rate 18 20 Blood Pressure 160/67 H Pulse Oximetry 96 94 Oxygen Delivery High Flow Nasal Cannula Oxygen Flow Rate 8 07/31/24 15:22 07/31/24 16:00 07/31/24 20:00 Temperature Pulse Rate 105 H 104 H Respiratory Rate 20 Blood Pressure Pulse Oximetry 93 Oxygen Delivery High Flow Nasal Cannula Oxygen Flow Rate 8 07/31/24 20:00 07/31/24 20:39 07/31/24 21:25 Temperature 97.6 F Pulse Rate 115 H 120 H 128 H Respiratory Rate 22 H Blood Pressure 139/81 Pulse Oximetry 93 Oxygen Delivery Oxygen Flow Rate 08/01/24 00:00 08/01/24 02:15 08/01/24 02:25 Temperature Pulse Rate 80 95 99 Respiratory Rate 20 20 Blood Pressure Pulse Oximetry Oxygen Delivery Oxygen Flow Rate 08/01/24 02:26 08/01/24 04:00 08/01/24 05:37 Temperature 97.6 F Pulse Rate 100 100 Respiratory Rate 22 H Blood Pressure 144/87 H Pulse Oximetry 94 92 Oxygen Delivery High Flow Nasal Cannula Oxygen Flow Rate 8 08/01/24 07:46 08/01/24 07:50 08/01/24 07:50 Temperature Pulse Rate 112 H Respiratory Rate 20 Blood Pressure Pulse Oximetry 86 L 92 Oxygen Delivery High Flow Nasal Cannula High Flow Nasal Cannula Oxygen Flow Rate 8 10 08/01/24 08:00 08/01/24 08:00 08/01/24 08:10 Temperature Pulse Rate 109 H 116 H Respiratory Rate 20 Blood Pressure Pulse Oximetry 92 Oxygen Delivery High Flow Nasal Cannula Oxygen Flow Rate 10 08/01/24 08:33 08/01/24 10:25 08/01/24 12:00 Temperature Pulse Rate 109 H 109 H 95 Respiratory Rate Blood Pressure Pulse Oximetry Oxygen Delivery Oxygen Flow Rate 08/01/24 13:34 Temperature Pulse Rate 107 H Respiratory Rate 20 Blood Pressure Pulse Oximetry Oxygen Delivery Oxygen Flow Rate Intake/Output Intake/Output: Intake & Output 07/29/24 07/30/24 07/31/24 08/01/24 23:59 23:59 23:59 23:59 Intake Total 1340 630 Output Total 1750 450 Balance -410 180 Meds/Results Medications: Active Medications Generic Name Dose Route Start Last Admin Trade Name Freq PRN Reason Stop Dose Admin Acetaminophen 650 mg 07/30/24 16:59 Acetaminophen 325 Mg Tablet PO Q4H PRN Mild Pain (1-3) or Fever Hydrocodone Bitart/Acetaminophen 1 tab 07/30/24 16:59 Hydrocodone/Acetaminophen (*Crx) 5-325 Mg Tablet PO Q4H PRN Pain Rated 4-6 Amlodipine Besylate 5 mg 07/31/24 09:00 08/01/24 08:33 Amlodipine Besylate 5 Mg Tablet PO 5 mg DAILY PERFECTO Administration Apixaban 5 mg 07/31/24 21:00 08/01/24 08:33 Apixaban 5 Mg Tablet PO 5 mg Q12HR PERFECTO Administration Carbidopa/Levodopa 2 tablet 07/31/24 06:00 08/01/24 11:15 Carbidopa/Levodopa 25/100 Mg Tablet BY MOUTH 2 tablet 0600,1200 PERFECTO Administration Carbidopa/Levodopa 1 tablet 07/30/24 22:55 07/31/24 20:39 Carbidopa/Levodopa 25/100 Mg Tablet BY MOUTH 1 tablet HS PERFECTO Administration Furosemide 40 mg 07/31/24 09:00 08/01/24 08:32 Furosemide Inj 40 Mg/4 Ml Vial IV PUSH 40 mg BID PERFECTO Administration Guaifenesin 600 mg 07/31/24 11:30 08/01/24 08:33 Guaifenesin 12 Hr 600 Mg Tabcr PO 600 mg Q12HR PERFECTO Administration Guaifenesin/Dextromethorphan 10 ml 07/31/24 11:22 Guaifenesin/Dextromethorphan 10 Ml Udc PO Q4HR PRN Cough Ipratropium [place] 0.5 mg 07/31/24 14:00 08/01/24 13:33 Ipratropium Br 0.02% Inh Soln 0.5 Mg/2.5 Ml Vial INHALATION 0.5 mg Q6HRT PERFECTO Administration Levalbuterol HCl 1.25 mg 07/31/24 14:00 08/01/24 13:33 Levalbuterol Neb 1.25 Mg/3 Ml INHALATION 1.25 mg Q6HRT PERFECTO Administration Levothyroxine Sodium 112 mcg 07/31/24 06:30 08/01/24 05:17 Levothyroxine Sodium 112 Mcg Tablet PO 112 mcg DAILY@0630 PERFECTO Administration Methylprednisolone Sodium Succinate 60 mg 07/30/24 18:00 08/01/24 11:14 Methylprednisolone Sod Succ 125 Mg Vial IV PUSH 60 mg Q6HR PERFECTO Administration Metoprolol Tartrate 100 mg 07/30/24 22:50 08/01/24 08:33 Metoprolol Tartrate 50 Mg Tab PO 100 mg Q12HR PERFECTO Administration Ondansetron HCl 4 mg 07/30/24 16:59 Ondansetron Inj 4 Mg/2 Ml Vial IV PUSH Q4H PRN Nausea Oseltamivir Phosphate 75 mg 07/31/24 06:00 08/01/24 05:16 Oseltamivir Phosphate 75 Mg Capsule PO 08/05/24 05:59 75 mg Q12H PERFECTO Administration Perflutren Lipid Microsphere 0 ml 07/30/24 17:10 Perflutren Lipid Microspheres 1.5 Ml Vial Diluted To 10 Ml Total Volume IV PUSH 08/02/24 17:10 ONCE PRN adequate visualization Protocol Perflutren Lipid Microsphere 0 ml 08/01/24 09:48 Perflutren Lipid Microspheres 1.5 Ml Vial Diluted To 10 Ml Total Volume IV PUSH 08/04/24 09:49 ONCE PRN adequate visualization Protocol Rosuvastatin Calcium 5 mg 07/31/24 09:00 08/01/24 08:33 Rosuvastatin 5 Mg Tablet BY MOUTH 5 mg DAILY PERFECTO Administration Radiology Results: ITS Impressions Chest X-Ray 07/31/24 10:33 Impression: Central congestive change with probable minimal bibasilar pulmonary edema/atelectatic change. Labs Labs: Laboratory Results - last 24 hr 08/01/24 08/01/24 07:23 07:27 WBC 10.2 H RBC 6.00 H Hgb 17.5 H Hct 54.5 H MCV 90.8 MCH 29.2 MCHC 32.1 RDW 14.7 H Plt Count 228 MPV 10.5 H Immature Gran % (Auto) 0.3 Neut % (Auto) 90.8 H Lymph % (Auto) 4.8 L [place] % (Auto) 4.0 Eos % (Auto) 0.0 Baso % (Auto) 0.1 L Lymph # (Auto) 0.49 L [place] # (Auto) 0.4 Eos # (Auto) 0.0 Baso # (Auto) 0.0 Abs Immat Gran (auto) 0.03 Absolute Neuts (auto) 9.3 H Absolute Nucleated RBC 0.000 Nucleated RBC % 0.0 Sodium 138 Potassium 3.7 Chloride 99 Carbon Dioxide 36 H Anion Gap 3 L BUN 31 H Creatinine 0.70 Estim Creat Clear Calc 52 Estimated GFR > 60 Glucose 137 H POC Capillary Glucose 166 H Calcium 9.2 Magnesium 2.1 Total Bilirubin 0.8 AST 21 ALT < 6 L Alkaline Phosphatase 84 Total Protein 7.0 Albumin 3.7
[2024-08-01] MEDS: polyethylene glycoL 3350 17 GM POWD.PACK PO (14:26)
--- NOTE | 2024-08-01 15:14 | PM.PNCARD ---
Progress Note: A&P Assessment and Plan (1) Atrial fibrillation: Qualifiers: Atrial fibrillation type: unspecified Qualified Code(s): I48.91 - Unspecified atrial fibrillation Code(s): I48.91 - Unspecified atrial fibrillation Status: Acute Assessment and Plan: PAF, - RVR in the setting of Influenza/hypoxemia - Currently Diltiazem and BB for rate conrol,target HR 100-110 till she recovers from flu - Continue apixaban (2) CHF exacerbation: Code(s): I50.9 - Heart failure, unspecified Status: Acute Assessment and Plan: - Switch to oral diuretic from tomorow based on echo results - Previous echo (2021) showed normal LV systolic function with indeterminate diastolic function and no significant valve pathology. - Check daily BMP while on IV furosemide and replete electrolytes with goals Mag 2.0 and K+ 4.0. (3) Influenza A: Code(s): J10.1 - Influenza due to other identified influenza virus with other respiratory manifestations Status: Acute Assessment and Plan: Supportive care. Management per hospitalist service. Subjective Date/time seen: 08/01/24 15:14 Interval history: Rates better but still slightly elevated No chest pain or dyspnea Review of Systems Review of Systems: All systems reviewed & are unremarkable except as noted in HPI and below Exam Const: General: comfortable, no acute distress, alert and awake Orientation/consciousness: patient oriented x3 HENMT: Head: normal to inspection Eyes: General: appearance normal, both eyes and all related structures Pupils: Equal, round and reactive pupils present Neck: Neck: normal visual inspection, supple and no JVD Resp: Effort & Inspection: normal respiratory effort Auscultation: not clear to auscultation bilaterally, rales and rhonchi Cardio: Rate: regular rate Rhythm: abnormal rhythm irregularly irregular Heart sounds: S1 normal heart sound present, S2 normal heart sound present and Murmur heart sound present systolic GI: Auscultation: normal bowel sounds Skin: General skin exam: normal color Neuro: General: patient oriented x3 Cranial nerves: Yes Equal, round and reactive pupils present Extrem: General: normal to inspection Other: no edema Psych: Appearance: grossly normal Mental Status: mental status grossly normal Objective Data Vital Signs Vital Signs: Vital Signs - 24 hr 07/31/24 15:22 07/31/24 16:00 07/31/24 20:00 Temperature Pulse Rate 105 H 104 H Respiratory Rate 20 Blood Pressure Pulse Oximetry 93 Oxygen Delivery High Flow Nasal Cannula Oxygen Flow Rate 8 07/31/24 20:00 07/31/24 20:39 07/31/24 21:25 Temperature 36.4 C Pulse Rate 115 H 120 H 128 H Respiratory Rate 22 H Blood Pressure 139/81 Pulse Oximetry 93 Oxygen Delivery Oxygen Flow Rate 08/01/24 00:00 08/01/24 02:15 08/01/24 02:25 Temperature Pulse Rate 80 95 99 Respiratory Rate 20 20 Blood Pressure Pulse Oximetry Oxygen Delivery Oxygen Flow Rate 08/01/24 02:26 08/01/24 04:00 08/01/24 05:37 Temperature 36.4 C Pulse Rate 100 100 Respiratory Rate 22 H Blood Pressure 144/87 H Pulse Oximetry 94 92 Oxygen Delivery High Flow Nasal Cannula Oxygen Flow Rate 8 08/01/24 07:46 08/01/24 07:50 08/01/24 07:50 Temperature Pulse Rate 112 H Respiratory Rate 20 Blood Pressure Pulse Oximetry 86 L 92 Oxygen Delivery High Flow Nasal Cannula High Flow Nasal Cannula Oxygen Flow Rate 8 10 08/01/24 08:00 08/01/24 08:00 08/01/24 08:10 Temperature Pulse Rate 109 H 116 H Respiratory Rate 20 Blood Pressure Pulse Oximetry 92 Oxygen Delivery High Flow Nasal Cannula Oxygen Flow Rate 10 08/01/24 08:33 08/01/24 10:25 08/01/24 12:00 Temperature Pulse Rate 109 H 109 H 95 Respiratory Rate Blood Pressure Pulse Oximetry Oxygen Delivery Oxygen Flow Rate 08/01/24 13:34 08/01/24 13:53 08/01/24 14:00 Temperature 36.7 C Pulse Rate 107 H 112 H 100 Respiratory Rate 20 20 20 Blood Pressure 134/81 Pulse Oximetry 94 Oxygen Delivery Oxygen Flow Rate Intake/Output Intake/Output: Intake & Output 07/29/24 07/30/24 07/31/24 08/01/24 23:59 23:59 23:59 23:59 Intake Total 1340 870 Output Total 1750 450 Balance -410 420 Meds/Results Medications: Active Medications Generic Name Dose Route Start Last Admin Trade Name Freq PRN Reason Stop Dose Admin Acetaminophen 650 mg 07/30/24 16:59 Acetaminophen 325 Mg Tablet PO Q4H PRN Mild Pain (1-3) or Fever Hydrocodone Bitart/Acetaminophen 1 tab 07/30/24 16:59 Hydrocodone/Acetaminophen (*Crx) 5-325 Mg Tablet PO Q4H PRN Pain Rated 4-6 Amlodipine Besylate 5 mg 07/31/24 09:00 08/01/24 08:33 Amlodipine Besylate 5 Mg Tablet PO 5 mg DAILY PERFECTO Administration Apixaban 5 mg 07/31/24 21:00 08/01/24 08:33 Apixaban 5 Mg Tablet PO 5 mg Q12HR PERFECTO Administration Carbidopa/Levodopa 2 tablet 07/31/24 06:00 08/01/24 11:15 Carbidopa/Levodopa 25/100 Mg Tablet BY MOUTH 2 tablet 0600,1200 PERFECTO Administration Carbidopa/Levodopa 1 tablet 07/30/24 22:55 07/31/24 20:39 Carbidopa/Levodopa 25/100 Mg Tablet BY MOUTH 1 tablet HS PERFECTO Administration Furosemide 40 mg 07/31/24 09:00 08/01/24 08:32 Furosemide Inj 40 Mg/4 Ml Vial IV PUSH 40 mg BID PERFECTO Administration Guaifenesin 600 mg 07/31/24 11:30 08/01/24 08:33 Guaifenesin 12 Hr 600 Mg Tabcr PO 600 mg Q12HR PERFECTO Administration Guaifenesin/Dextromethorphan 10 ml 07/31/24 11:22 Guaifenesin/Dextromethorphan 10 Ml Udc PO Q4HR PRN Cough Ipratropium [place] 0.5 mg 07/31/24 14:00 08/01/24 13:33 Ipratropium Br 0.02% Inh Soln 0.5 Mg/2.5 Ml Vial INHALATION 0.5 mg Q6HRT PERFECTO Administration Levalbuterol HCl 1.25 mg 07/31/24 14:00 08/01/24 13:33 Levalbuterol Neb 1.25 Mg/3 Ml INHALATION 1.25 mg Q6HRT PERFECTO Administration Levothyroxine Sodium 112 mcg 07/31/24 06:30 08/01/24 05:17 Levothyroxine Sodium 112 Mcg Tablet PO 112 mcg DAILY@0630 PERFECTO Administration Methylprednisolone Sodium Succinate 60 mg 07/30/24 18:00 08/01/24 11:14 Methylprednisolone Sod Succ 125 Mg Vial IV PUSH 60 mg Q6HR PERFECTO Administration Metoprolol Tartrate 100 mg 07/30/24 22:50 08/01/24 08:33 Metoprolol Tartrate 50 Mg Tab PO 100 mg Q12HR PERFECTO Administration Ondansetron HCl 4 mg 07/30/24 16:59 Ondansetron Inj 4 Mg/2 Ml Vial IV PUSH Q4H PRN Nausea Oseltamivir Phosphate 75 mg 07/31/24 06:00 08/01/24 05:16 Oseltamivir Phosphate 75 Mg Capsule PO 08/05/24 05:59 75 mg Q12H PERFECTO Administration Perflutren Lipid Microsphere 0 ml 07/30/24 17:10 Perflutren Lipid Microspheres 1.5 Ml Vial Diluted To 10 Ml Total Volume IV PUSH 08/02/24 17:10 ONCE PRN adequate visualization Protocol Perflutren Lipid Microsphere 0 ml 08/01/24 09:48 Perflutren Lipid Microspheres 1.5 Ml Vial Diluted To 10 Ml Total Volume IV PUSH 08/04/24 09:49 ONCE PRN adequate visualization Protocol Polyethylene Glycol 17 gm 08/01/24 14:14 08/01/24 14:26 Polyethylene Glycol 3350 17 Gm Powd.Pack PO 17 gm QAM PRN Administration Constipation Rosuvastatin Calcium 5 mg 07/31/24 09:00 08/01/24 08:33 Rosuvastatin 5 Mg Tablet BY MOUTH 5 mg DAILY PERFECTO Administration Radiology Results: ITS Impressions Chest X-Ray 07/31/24 10:33 Impression: Central congestive change with probable minimal bibasilar pulmonary edema/atelectatic change. Labs Labs: Laboratory Results - last 24 hr 08/01/24 08/01/24 07:23 07:27 WBC 10.2 H RBC 6.00 H Hgb 17.5 H Hct 54.5 H MCV 90.8 MCH 29.2 MCHC 32.1 RDW 14.7 H Plt Count 228 MPV 10.5 H Immature Gran % (Auto) 0.3 Neut % (Auto) 90.8 H Lymph % (Auto) 4.8 L [place] % (Auto) 4.0 Eos % (Auto) 0.0 Baso % (Auto) 0.1 L Lymph # (Auto) 0.49 L [place] # (Auto) 0.4 Eos # (Auto) 0.0 Baso # (Auto) 0.0 Abs Immat Gran (auto) 0.03 Absolute Neuts (auto) 9.3 H Absolute Nucleated RBC 0.000 Nucleated RBC % 0.0 Sodium 138 Potassium 3.7 Chloride 99 Carbon Dioxide 36 H Anion Gap 3 L BUN 31 H Creatinine 0.70 Estim Creat Clear Calc 52 Estimated GFR > 60 Glucose 137 H POC Capillary Glucose 166 H Calcium 9.2 Magnesium 2.1 Total Bilirubin 0.8 AST 21 ALT < 6 L Alkaline Phosphatase 84 Total Protein 7.0 Albumin 3.7
--- NOTE | 2024-08-01 16:24 | P.CONPL_ITS ---
Assessment and Plan Assessment and plan (1) Influenza A: Code(s): J10.1 - Influenza due to other identified influenza virus with other respiratory manifestations Status: Acute Assessment and Plan: She is (+) for influenza A on PCR swab, treated with Tamilflu and solumedrol, completed. O2 need is still significant, 8 L/minute. Will watch for secondary bacterial infection which can occur after influenza. (2) Hypoxia: Code(s): R09.02 - Hypoxemia Status: Acute Assessment and Plan: O2 need is 8 L/min, should b able to wean as tolerated. History of Present Illness History of Present Illness Consult date: 08/03/24 Requesting physician: Bairon Esquivel MD Chief complaint: influenza A, hypoxia Narrative: Patient was seen Aug 03, 2024 at 22:00 Room 331 NEW: Jing Garcias is 83 years old, admitted with influenza and acute hypoxic respiratory failure. Last office visit w Dr Ramesh was 06/06/23; restrictive impairment with need for O2 2 L w exertion. She did not require a follow up appointment. She never gets a flu vaccination. She was admitted with increased shortness of breath, PCR (+) for influenza A and acute hypercapnic respiratory failure. She feels better now compared to admission. She was started on Tamiflu 75 mg p.o. q.12 hours and IV Solu-Medrol which was discontinued today. She had rapid atrial fibrillation, was treated with diltiazem. She initially required 15 liters/minute, the amount fluctuated on the initial admission date July 31, was down to 7 or 8 L a minute, now stable at 8 L for the last 2 - 3 days. DATA * MRSA swab negative, influenza A positive, all other PCR are negative, influenza B, RSV, SARS-CoV-2. * 08/03/2024 sodium 137, potassium 4.3, chloride 93, HC03 greater than 40, BUN 60, initially was 31, increased over the next 3 days there was 60, creatinine 0.7 * 07/31/24; ABG; pH 7.42, pCO2 53.3, pO2 73.4, HC03 34.1, saturation 94.8 on high-flow 8 L * 08/02/24 : Impression: Small left pleural effusion with left basilar and left perihilar airspace disease. Correlate for atelectasis/edema versus pneumonia. * 07/30/24 : Central congestive change with probable minimal bibasilar pulmonary edema/atelectatic change. 03/02/2023: This is a pulmonary function test with pre and post-bronchodilator spirometry, plethysmography and diffusing capacity.? The test was performed and results interpreted in accordance with the 2019 and 2005 ATS/ERS Task Force guidelines respectively using the Global Lung Function Initiative-2012 reference equations. Patient demonstrated good effort and cooperation. Reproducibility criteria were met. The quality of the pre bronchodilator spirometry maneuver was Grade A and post bronchodilator spirometry maneuver was Grade A.? I spoke with the transportation refrigeration technician and the patient required coaching to complete the spirometry and the remainder of the test the patient did well and there were no technical issues measuring the lung volumes. Findings: Spirometry:? The contour the inspiratory and expiratory flow tracing are normal.? The pre bronchodilator FVC is 1.46 L, 56% predicted.? The pre bronchodilator FEV1 is 1.03 L, 52% predicted.? The pre bronchodilator FEV1: FVC ratio 70%.? The post bronchodilator FVC is 1.31 L, representing an 11% decrease.? The post bronchodilator FEV1 is 1.00 L, representing a 3% decrease.? The post bronchodilator FEV1: FVC ratio 76%.? Plethysmography:? The total lung capacity 7.08 L, 136% predicted.? The functional residual capacity is 5.89 L, 196% predicted.? The residual volume is 5.61 L, 228% predicted.? Diffusing capacity:? The diffusing capacity unadjusted for hemoglobin and carboxyhemoglobin is 12.5, 63% predicted.? The diffusing capacity adjusted for alveolar volume is 5.71, 140% predicted.? In comparison to previous pulmonary function testing on 03/23/2021 the post bronchodilator FVC is unchanged from 1.51 L to 1.31 L.? The post bronchodilator FEV1 is decreased from 1.18 L to 1.00 L.? The total lung capacity has increased from 3.44 L to 7.08 L.? The functional residual capacity is increased from 2.16 L to 5.89 L.? The residual volume has increased from 1.90 L to 5.61 L.? The diffusing capacity unadjusted for hemoglobin and carboxyhemoglobin is unchanged from 12.3 to 12.5.? The diffusing capacity adjusted for alveolar volume is unchanged from 5.26 to 5.71. Impression: The spirometry is normal without evidence of an obstructive abnormality. The lung volumes are increased without evidence of a restrictive abnormality. ? The FVC and FEV1 are moderately severely decreased without an obstructive or restrictive abnormality.? This is an abnormal but nonspecific finding.? There is no significant improvement after inhaling a single dose of albuterol.? The total lung capacity, functional residual capacity and residual volume are increased with an increased residual volume: TLC ratio.? This is consistent with hyperinflation. The diffusing capacity unadjusted for hemoglobin and carboxyhemoglobin is mildly decreased and increased when adjusted for alveolar volume.? In comparison to previous pulmonary function testing on 03/23/2021 there has been a greater than anticipated time dependent increase in the total lung capacity, residual volume and functional residual capacity with a greater than anticipated time dependent decrease in the FEV1 with no significant change in the FVC or diffusing capacity.? Clinical correlation is recommended. 03/02/23: The patient has no obstructive abnormality and no restrictive abnormality with hyperinflation that has increased since 03/23/2021. This is a 6 minute walk test using walking aid. Resting room air oxygen saturation measured by pulse oximetry was 94% and heart rate was 64 bpm.? Patient ambulated for 122 meters and oxygen saturation remained 90 to 93%.? Heart rate at the end of the study was 88 bpm. The patient did not qualify for supplemental oxygen at rest or with ambulation. 02/16/2023: Overnight oximetry on 2 L nasal cannula. Recording duration was 1 hour and 34 minutes basal saturation 93.4%. High saturation 98%. Low saturation 89%. Time with saturation less than or equal to 88% was 0 minutes. Oxygen desaturation index is 10. Continue 2 L nasal cannula at night. HPI Comments 02/02/2023:? This is a follow-up encounter from 10/28/2021 for MAHER and nocturnal hypoxemia. On 10/28/2021:? Patient with MAHER and nocturnal hypoxemia. She is a nonsmoker with no occupational exposures. Patient has no rest SOB and she also requires no oxygen at rest but 2 L with ambulation per home O2 assessment on 03/23/2021. She has a moderately severe restrictive abnormality with a total lung capacity of 67% predicted. She has a CT scan of the chest that demonstrates severe thoracic spondylosis and some kyphosis with no emphysematous or interstitial lung disease. I believed her MAHER and hypoxemia is related to her restrictive lung disease with evidence of kyphosis on her CT scan but no evidence of interstitial lung disease. I suspect there also is a component of deconditioning for her MAHER. Patient has minimal respiratory limitations in her activities of daily living at this time and is currently walking 3/4 to 1 mile 5 days a week and this takes her 45 minutes without oxygen. She has pleased with this progress. Portable oxygen concentrator process was initiated. At this time there is no specific pulmonary follow-up needed. Please refer the patient to us should she have any new issues. 08/11/2022:? Cardiology outpatient visit states some SOB but able to walk outside 1/4 mi or so with only stopping once.? Thinks she might need to see pulmonary again.? Wears O2 at night and naps. 12/15/2022:? Cardiology, Dr. Vazquez, she is still SOB with stairs, ADLs like running vacuum about the same from last visit.? O2 saturation 92% room air at rest.? Complaints of SOB stable.? She does not appear to be in decompensated heart failure.? At rest 93% on room air after 1 lap = 95%.? Two laps = 90%, 3 laps = 90%.? Patient does not qualify for supplemental oxygen with ambulation although she is mildly hypoxic.? I have strongly encouraged her to contact her orientor again to be seen as soon as possible for further recommendations and management in this regard. This appears to be the explanation of her symptoms in the absence of decompensated heart failure.? Her echo is not suggestive of significant valvular heart disease.? Her AFib is persistent with a reasonably controlled ventricular response.? Patient verbalized understanding. Today she tells me that her breathing has been about the same over the last year and about the same over the last 6 months. The patient tells me she can walk several blocks with a cane and on further questioning she states that she walks less than she did a year ago. Their 2 daughters in the room and both state that the patient appears more labored when she is breathing especially when she is standing and moving around. The patient states that she continues to do some gardening with a little decrease in her ability to do these activities since last year. The patient denies fever, chills, rigors, cough, phlegm production, hemoptysis. The patient sleeps for 1-1/2 hours a day. The patient has Parkinson's disease but the patient as well as the daughter state that on her Sinemet she is moving around easier, getting up and down from a chair and bed easier since she has been on this medicine. The patient is wearing 2 L nasal cannula at night. The patient's daytime oxygen with ambulation was never set up from her home O2 assessment on 03/23/2021. Prior [id number]/2021:? This is a follow-up encounter from 05/12/2021 for MAHER. On 05/12/2021 she was clinically unchanged.? She was supposed to be wearing 2 L nasal cannula with ambulation but this was not implimented.? She was wearing 2 L at night with sleep.? She was a never smoker and had no rest shortness of breath.? She denied aspiration and stated her Parkinson's disease was unchanged.? PFTs 03/23/21 demonstrated a moderately severe restrictive abnormality with a TLC of 3.44 L, 67% predicted.? CT scan of the chest on 04/03/2021 demonstrated severe thoracic spondylosis and some kyphosis, minimal paraseptal emphysema, OGD, mild atelectasis at the inferior lungs, no ILD and no change from 03/20/2019. I ordered an overnight oximetry on 2 L but this was cancelled by insurance. I did not start any inhaled respiratory medicines.? I suspected her dyspnea on exertion was related to her restrictive lung disease with evidence of kyphosis and possibly a component of deconditioning.? I requested a portable oxygen concentrator. Patient was admitted to the hospital on 09/17/21 and had a left reverse total shoulder arthroplasty.? She developed atrial fibrillation and was treated with metoprolol and started on Xarelto 20 p.o. daily.? On 09/17 and 09/18/2021 EMR noted she was on 4 L nasal cannula saturations 93-94%.? Follow-up on 10/08/2021 with orthopedic surgery states she was doing well in to continue her rehab. Follow up with cardiology on 10/14/2021 and she had no complaints of palpitations, chest pain or shortness of breath. Discussion regarding cardioversion underway. Follow-up with primary on 10/20/21 with complaints of lower extremity edema, instructed to elevate legs while hypertensive medicines were to be reviewed. Today she tells me that ? She has been doing well from a respiratory viewpoint she has not been admitted to the hospital or had any exacerbations since her last visit.? Regarding her dyspnea on exertion that is much improved.? They raise the height of her walker and this helps her breathing.? She is able to walk 3/4 to 1 mi 5 days a week at a gymnasium and this distance takes 45 minutes.? She has also lost weight from 192-174 today.? She had pedal edema and that has been improved also with her ambulation and raising her legs. She is wearing 2 L at night but has not been wearing the 2 L with ambulation as we have been attempting to get a portable oxygen concentrator.? We will call again to try to organized this. Patient is unwilling to receive her COVID vaccine or influenza vaccine despite my recommendations. Prior visits 05/12/2021:? This is a follow-up visit for shortness of breath from 02/24/2021.? She had dyspnea on exertion without rest shortness of breath and nocturnal hypoxemia on 2 L NC with no respiratory limitations in her activities of daily living.? PFTs, home O2 assessment an overnight oximetry on room air were ordered. Patient had a home O2 assessment on 03/23/2021 demonstrating resting room air oxygen saturation 92%, with ambulation on room air saturations 87%, with ambulation is on 1 L nasal cannula saturations 87%.? With ambulation on 2 L nasal cannula saturations 90%? Will set patient up with 2 L nasal cannula with activity.? On 03/03/2021 patient had an overnight oximetry on room air with time of saturation less than or equal to 88% at 63.7 minutes.? I ordered 2 L NC at night and then repeat overnight oximetry on 2L. Patient patient has a moderately severe restrictive ventilatory abnormality with a total lung capacity of 3.44, 67% predicted.? CT scan of the chest 04/03/21 demonstrated minimal paraseptal emphysema, OGD, mild atelectasis in the inferior lungs, a 8 mm nodule right lower lobe without change from 03/20/2019 no pleural effusions and no evidence of interstitial lung disease. Today she tells me that she continues to wear 2 L nasal cannula oxygen with sleep.? She never received notification that she should be wearing 2 L nasal cannula with ambulation.? Overall she continues to clinically be unchanged.? She has shortness of breath and has not been walking outside much because of the pandemic.? She can walk throughout her house and she denies any fever, chills, rigors, chest pain, cough or hemoptysis.? She also denies any rest shortness of breath. ? She denies any aspiration and says that her Parkinson's disease is essentially unchanged. 02/24/21 This is a new patient encounter for shortness of breath and hypoxia ? Patient with a history of hypertension hypothyroidism and Parkinson's disease presents with her daughter and the history is obtained mostly through her daughter.? The patient has a history of nocturnal hypoxemia with a home O2 study on 08/25/2019 with time less than or equal to 88% on room air at 237 minutes patient. ? patient was prescribed 2 L at night.? The daughter also states that she has noticed some shortness of breath that has worsened over the last 6 months to a year.? Patient currently states she can walk 1-2 blocks and then has to stop for shortness of breath.? Patient denies fever, chills, rigors, chest pain, cough.? Patient does state that she makes phlegm 1 to 2 times a day that is howell in color and never with hemoptysis.? patient denies rest shortness of breath.? Patient denies seasonal allergies.? Patient denies wheezing.? Patient denies aspiration or reflux. ? Patient denies daytime hypersomnia and her [employer] Score today is 4.? The daughter states she does not know if the patient snores.? The patient has no witnessed apneas per the daughter.? Patient's BMI is 27.9. Patient is a never smoker.? Patient was exposed to no secondhand smoke throughout her life.? 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 DATA: EXAMINATION:CT diagnostic chest wo con DATE: 04/03/2021 12:41 INDICATION: Other disorders of lung. COMPARISON: Chest CT 03/20/2019, 06/18/2016 FINDINGS: There is mild emphysema. There is mild bronchiectasis in right middle lobe and lingula. A calcified right lung nodule and calcified right hilar and mediastinal lymph nodes are consistent with old granulomatous disease. There is mild atelectasis in the inferior lungs. There is an 8 mm nodule in right lower lobe without change, likely benign. No pleural effusion. The heart size is normal. There are coronary artery calcifications. No pericardial effusion. Calcifications in the spleen are consistent with old granulomatous disease. There are changes of cholecystectomy. 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 There is lucency around the glenoid component with subsidence, consistent with loosening. There is severe thoracic spondylosis. There are changes of vertebroplasty at L1. IMPRESSION: 1. Mild emphysema. 2. 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 03/23/21 PFTs ?This is a pulmonary function test with pre and post-bronchodilator spirometry, plethysmography and diffusing capacity. The test was performed and results interpreted in accordance with the 2019 and 2005 ATS/ERS Task Force guidelines respectively using the Global Lung Function Initiative-2012 reference equations. Patient demonstrated good effort and cooperation. Reproducibility criteria were met. The quality of the pre bronchodilator spirometry maneuver was Grade A and post bronchodilator spirometry maneuver was Grade A. Findings: Spirometry:? The contour of the expiratory flow tracing is that of a witch's hat.? The contour the inspiratory flow tracing is normal.? The pre bronchodilator FVC is 1.54 L, 54% predicted.? The pre bronchodilator FEV1 is 1.13 L, 57% predicted.? The FEV1: FVC ratio 73%.? The post bronchodilator FVC is 1.51 L, representing a 2% decrease.? The post bronchodilator FEV1 is 1.18 L, representing a 5% decrease. Plethysmography:? The total lung capacity is 3.44 L, 67% predicted.? The functional residual capacity is 2.16 L, 76% predicted.? The residual volume is 1.90 L, 87% predicted. Diffusing capacity:? The absolute diffusion capacity is 12.3, 60% predicted.? The diffusing capacity corrected for alveolar volume is 5.26, 157% predicted. Impression: There is a moderately severe restrictive ventilatory abnormality. The spirometry is normal without evidence of an obstructive abnormality. There is no significant improvement after inhaling a single dose of albuterol. The ? Absolute diffusion capacity is normal and increased when corrected for alveolar volume. There are no prior studies for comparison 03/03/2021: Patient had an overnight oximetry on room air that demonstrated a basal saturation of 90.3%.? High saturation 98.0%.? Low saturation 76.0%.? Time with saturation less than or equal to 88% was 63.7 minutes.? I will prescribe 2 L nasal cannula oxygen at night and repeat an overnight oximetry on 2 L nasal cannula. Review of Systems 2 Review of Systems: All systems reviewed & are unremarkable except as noted in HPI and below PMFSH Past Medical History Medical History Atherosclerosis of aorta Other thrombophilia Neoplasm of uncertain behavior of skin Anticoagulation adequate with anticoagulant therapy Plantar callus PND (post-nasal drip) Restrictive lung disease Compression fracture of L1 lumbar vertebra Systolic murmur Shortness of breath on exertion Essential hypertension Hyperlipidemia Hypothyroidism (acquired) Post-menopausal Surgical History Surgical History History of left shoulder replacement (~09/17/21) History of kyphoplasty (~01/2021) History of back surgery History of cholecystectomy History of left knee replacement History of surgery Fractured Arm (Steel Plate & 7 Screws) History of right shoulder replacement History of hysterectomy (~1984) Family History Family History Father Hypertension, Onset Age: 70 Cerebrovascular accident, Onset Age: 70 Mother Hypertension, Onset Age: 81 Cerebrovascular accident Sibling Asthma Family history of arthritis Family history of hearing loss Grandparent Family history of malignant neoplasm of breast in first degree relative Social History Social History Smoking status: Never smoker Second hand tobacco smoke exposure: No Alcohol intake: never Alcohol use details: STATES VERY RARELY - [place] Substance use: never Substance use type: does not use Do You Feel Safe in your Home?: Yes Lack of Transportation: No Lack of Food: Never True Current Housing: I Have Housing Concerned About Future Housing: No Difficulty Paying Gas/Electric Bills: No Difficulty Paying for Meds: No Currently Unemployed: No Education: Decline to Answer Difficulty w/ Childcare or Family Care: No Living arrangements: with family Gender identity (if verbalized by the patient): Female Spiritual care concerns: No Meds Home Medications and Allergies Home Medications ?Medication ?Instructions ?Recorded ?Confirmed ?Type cholecalciferol (vitamin D3) 25 25 mcg PO QAM 02/09/21 07/30/24 History mcg (1,000 unit) capsule mecobalamin (vitamin B12) 1,000 1,000 mcg PO QAM 02/09/21 07/30/24 History mcg chewable tablet apixaban 2.5 mg tablet (Eliquis) 2.5 mg PO BID 05/18/23 07/30/24 History rosuvastatin 5 mg tablet See Rx Instructions .Route 04/03/24 07/30/24 Rx .COMPLEX #90 tabs carbidopa 25 mg-levodopa 100 mg See Rx Instructions .Route 07/16/24 07/30/24 Rx tablet .COMPLEX #450 tabs levothyroxine 112 mcg tablet 112 mcg PO DAILY #90 tabs 07/17/24 07/30/24 Rx (Levo-T) metoprolol tartrate 100 mg tablet 100 mg PO BID #180 tabs 07/19/24 07/30/24 Rx amlodipine 5 mg tablet 5 mg PO .daily 07/30/24 07/30/24 History Allergies Allergy/AdvReac Type Severity Reaction Status Date / Time No Known Allergies Allergy Verified 07/30/24 14:27 Vital Signs Vital Signs - 24 hr 07/31/24 20:00 07/31/24 20:00 07/31/24 20:39 Temperature Pulse Rate 115 H 120 H Respiratory Rate Blood Pressure Pulse Oximetry 93 Oxygen Delivery High Flow Nasal Cannula Oxygen Flow Rate 8 07/31/24 21:25 08/01/24 00:00 08/01/24 02:15 Temperature 36.4 C Pulse Rate 128 H 80 95 Respiratory Rate 22 H 20 Blood Pressure 139/81 Pulse Oximetry 93 Oxygen Delivery Oxygen Flow Rate 08/01/24 02:25 08/01/24 02:26 08/01/24 04:00 Temperature Pulse Rate 99 100 Respiratory Rate 20 Blood Pressure Pulse Oximetry 94 Oxygen Delivery High Flow Nasal Cannula Oxygen Flow Rate 8 08/01/24 05:37 08/01/24 07:46 08/01/24 07:50 Temperature 36.4 C Pulse Rate 100 112 H Respiratory Rate 22 H 20 Blood Pressure 144/87 H Pulse Oximetry 92 86 L Oxygen Delivery High Flow Nasal Cannula Oxygen Flow Rate 8 08/01/24 07:50 08/01/24 08:00 08/01/24 08:00 Temperature Pulse Rate 109 H Respiratory Rate Blood Pressure Pulse Oximetry 92 92 Oxygen Delivery High Flow Nasal Cannula High Flow Nasal Cannula Oxygen Flow Rate 10 08/01/24 08:10 08/01/24 08:33 08/01/24 10:25 Temperature Pulse Rate 116 H 109 H 109 H Respiratory Rate 20 Blood Pressure Pulse Oximetry Oxygen Delivery Oxygen Flow Rate 08/01/24 12:00 08/01/24 13:34 08/01/24 13:53 Temperature Pulse Rate 95 107 H 112 H Respiratory Rate 20 20 Blood Pressure Pulse Oximetry Oxygen Delivery Oxygen Flow Rate 08/01/24 14:00 Temperature 36.7 C Pulse Rate 100 Respiratory Rate 20 Blood Pressure 134/81 Pulse Oximetry 94 Oxygen Delivery Oxygen Flow Rate Exam 2 Narrative: GEN: Alert, oriented, not in distress. She is wearing O2 by nasal cannula 8 L /min. She is able to hear with bilateral hearing aids in place. She is sitting in a chair at the bedside. She wears a wig in the daytime. At night, she wears a bonnet to keep her head warm with the wig off. HEENT: pupils are equal, EOMI, symmetrical face; oral membranes moist NECK: Trachea is midline CHEST: Equal air entry, symmetric excursion, decreased breath sounds CV: irregular S1S2 no m/g/r ABD : (+) bowel sounds Extremities : no clubbing, cyanosis, or edema PSYCH: normal thought and speech, gait is not tested Results Laboratory Findings 08/14/24 11:32 08/13/24 06:15 ABG, PT/INR, D-dimer: ABG ABG pH 7.424 (7.350-7.450) 07/31/24 12:10 ABG pCO2 53.3 mmHg (35.0-45.0) H 07/31/24 12:10 ABG pO2 73.4 mmHg (80.0-100.0) L 07/31/24 12:10 ABG O2 Saturation 94.8 % (95.0-100.0) L 07/31/24 12:10 Abnormal lab findings: Abnormal Labs 07/30/24 07/30/24 07/31/24 14:32 15:18 10:33 WBC RBC Hgb 15.4 H Hct RDW 15.1 H MPV Neut % (Auto) 82.3 H Lymph % (Auto) 6.6 L [place] % (Auto) 10.7 H Baso % (Auto) 0.1 L Lymph # (Auto) 0.52 L [place] # (Auto) 0.8 H Absolute Neuts (auto) ABG pCO2 ABG pO2 ABG HCO3 ABG O2 Saturation ABG O2 Content Sodium 136 L Carbon Dioxide Anion Gap BUN 23 H Creatinine 0.60 L Glucose POC Capillary Glucose Total Bilirubin 1.4 H ALT 5 L NT-Pro-B Natriuret Pep 3840 H 4430 H Influenza A (RT-PCR) Positive A 07/31/24 08/01/24 08/01/24 12:10 07:23 07:27 WBC 10.2 H RBC 6.00 H Hgb 17.5 H Hct 54.5 H RDW 14.7 H MPV 10.5 H Neut % (Auto) 90.8 H Lymph % (Auto) 4.8 L [place] % (Auto) Baso % (Auto) 0.1 L Lymph # (Auto) 0.49 L [place] # (Auto) Absolute Neuts (auto) 9.3 H ABG pCO2 53.3 H ABG pO2 73.4 L ABG HCO3 34.1 H ABG O2 Saturation 94.8 L ABG O2 Content 22.6 H Sodium Carbon Dioxide 36 H Anion Gap 3 L BUN 31 H Creatinine Glucose 137 H POC Capillary Glucose 166 H Total Bilirubin ALT < 6 L NT-Pro-B Natriuret Pep Influenza A (RT-PCR)
[2024-08-01] MEDS: CARBIDOPA/LEVODOPA 25/100 MG TABLET 1 TABLET BY MOUTH (20:28)
[2024-08-02] VITALS (21 sets, daily range): BP systolic 103–150; BP diastolic 54–89; PULSE 63–130; RESP 16–20; TEMP 36.3–36.4; O2SAT 91–99
[2024-08-02] MEDS: methylPREDNISolone SOD SUCC 125 MG VIAL 60 MG IV PUSH ×4 (00:04→17:12)
[2024-08-02] MEDS: IPRATROPIUM BR 0.02% INH SOLN 0.5 MG/2.5 ML VIAL INHALATION ×4 (02:12→21:00)
[2024-08-02] MEDS: LEVALBUTEROL NEB 1.25 MG/3 ML INHALATION ×4 (02:12→20:59)
[2024-08-02] MEDS: CARBIDOPA/LEVODOPA 25/100 MG TABLET 2 TABLET BY MOUTH ×2 (05:27→12:19)
[2024-08-02] MEDS: OSELTAMIVIR PHOSPHATE 75 MG CAPSULE PO ×2 (05:27→17:11)
[2024-08-02] MEDS: LEVOTHYROXINE SODIUM 112 MCG TABLET PO (05:27)
[2024-08-02 06:57] LABS: Basophils Percent Auto 0.1 % (0.2-1.2); Hematocrit 55.7 % (37.0-47.0); Hemoglobin 17.4 g/dL (12.0-15.0); Immature Granulocyte Absolute 0.03 K/mm3 (0.00-0.031); Immature Granulocyte Percent A 0.3 % (0-0.5); Lymphocytes Absolute Auto 0.36 K/mm3 (0.9-3.2); Lymphocytes Percent Auto 3.7 % (18.3-44.2); Mean Corpuscular HGB Conc 31.2 g/dl (32-36); Mean Corpuscular Hemoglobin 28.7 pg (26-34); Mean Corpuscular Volume 91.9 fl (80-100); Mean Platelet Volume 10.3 fl (7.4-10.4); Monocytes Absolute Auto 0.3 K/mm3 (0.1-0.6); Monocytes Percent Auto 3.5 % (2.6-8.5); Neutrophils Absolute Auto 8.9 K/mm3 (1.3-6.7); Neutrophils Percent Auto 92.4 % (45.5-73.1); Platelet Count Result 252 k/mm3 (150-375); Red Blood Count 6.06 M/mm3 (4.2-5.4); Red Cell Distribution Width 14.6 % (11.5-14.5); White Blood Count 9.6 K/mm3 (4.5-10.0)
[2024-08-02 07:17] LABS: Albumin Level 3.6 g/dL (3.5-5.1); Blood Urea Nitrogen 42 mg/dL (7-17); Calcium 9.1 mg/dL (8.4-10.2); Carbon Dioxide > 40 mmol/L (22-30); Chloride 95 mmol/L (98-107); Estimated CRCL calculation 52 ml/min; Estimated Glomerular Filt Rate > 60; Glucose 152 mg/dL (65-110); Magnesium 2.1 mg/dL (1.6-2.3); Phosphorus 4.6 mg/dL (2.5-4.5); Potassium 3.7 mmol/L (3.4-5.0); Sodium 138 mmol/L (137-145)
[2024-08-02] MEDS: ROSUVASTATIN 5 MG TABLET BY MOUTH (08:43)
[2024-08-02] MEDS: APIXABAN 5 MG TABLET PO ×2 (08:43→21:12)
[2024-08-02] MEDS: FUROSEMIDE INJ 40 MG/4 ML VIAL IV PUSH ×2 (08:43→17:11)
[2024-08-02] MEDS: guaiFENesin 12 HR 600 MG TABCR PO ×2 (08:43→21:12)
[2024-08-02] MEDS: amLODIPine BESYLATE 5 MG TABLET PO (08:43)
[2024-08-02] MEDS: METOPROLOL TARTRATE 50 MG TAB 100 MG PO ×2 (08:43→21:13)
[2024-08-02] MEDS: dilTIAZem HCL 30 MG TABLET PO ×3 (10:50→21:13)
--- NOTE | 2024-08-02 15:55 | P.PNIM_ITS ---
Progress Note: A&P Assessment and Plan (1) Influenza A: Code(s): J10.1 - Influenza due to other identified influenza virus with other respiratory manifestations Status: Acute (2) CHF exacerbation: Code(s): I50.9 - Heart failure, unspecified Status: Acute (3) Acute respiratory distress: Code(s): R06.03 - Acute respiratory distress Status: Inactive (4) Atrial fibrillation: Qualifiers: Atrial fibrillation type: unspecified Qualified Code(s): I48.91 - Unspecified atrial fibrillation Code(s): I48.91 - Unspecified atrial fibrillation Status: Acute (5) Hyperlipidemia: Qualifiers: Hyperlipidemia type: mixed hyperlipidemia Qualified Code(s): E78.2 - Mixed hyperlipidemia Code(s): E78.5 - Hyperlipidemia, unspecified Status: Acute (6) Essential hypertension: Code(s): I10 - Essential (primary) hypertension Status: Acute (7) Parkinson's 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, without mention of fluctuations: Qualifiers: Fluctuating manifestations: without fluctuating manifestations Qualified Code(s): G20.A1 - Parkinson's 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, without mention of fluctuations Code(s): G20.A1 - Parkinson's 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, without mention of fluctuations Status: Acute Plan This is an 83-year-old female presents to the ED with increased generalized weakness fatigue and went to urgent care where she was found to be hypoxic. She also reported cough. On the ED evaluation she was hypoxic 84% on room air was placed on 4 L oxygen via nasal cannula mildly tachycardic. AFib on EKG. Laboratory data showed normal WBC 7.8 hemoglobin of 15.4 platelet 186 Chem panel was unremarkable. BNP was elevated at 3840. Influenza RSV COVID swab tested positive for influenza A. Chest x-ray showed mild pulmonary vascular congestion with small bilateral pleural effusion and adjacent compressive atelectasis. Patient on chronic anticoagulation with apixaban. Patient admitted started on Tamiflu for influenza a. Will check procalcitonin Also treated for acute congestive heart failure. No prior diagnosis of congestive heart failure the she has been worked up for dyspnea on exertion in the past. Cardiology consulted. Echo ordered. IV Lasix b.i.d. repeat E chest x-ray with improved congestion. Because of atrial fibrillation will change DuoNeb to Xopenex and ipratropium. Droplet isolation to continue. Last echo 2021 with EF 70% trace TR RVSP 37 mild LVH Atrial fibrillation with rapid ventricular rate cardiology on board changed to Xopenex continue home metoprolol and Eliquis Hypertension Hyperlipidemia Parkinson's disease Sleep apnea uses oxygen at night Restrictive lung disease with kyphosis plans to get a portable oxygen concentrator in the past per pulmonary note and family. Will need home oxygen evaluation at the time of discharge to evaluate this. Hypothyroidism 08/01/24 - Assuming care. Continue Tamiflu for Influenza. Wean O2 as tolerated. She does have underlying O2 requirements but worse now. Encourage IS use. Consider a component of CHF as well. Remains on IV lasix. Echo ordered. Replace potassium to keep above 4.0. PT/OT ordered. Check CXR in the morning 08/02/24 - CXR showing small left pleural effusion with left basliar and left perihilar airspace disease. Continue Tamiflu to complete a course. Continue to encourage being up. Encourage IS use. No wheezing. Will back down on steroids. Switch to oral steroids in 1-2 days. Labs stable. Heart rate better controlled afterIV Digoxin and adding oral diltiazem. Serum bicarb >40 - change to oral Lasix soon? Continue PT/OT. DVT prophylaxis on Eliquis Code status do not resuscitate Subjective Date/time seen: 08/02/24 15:55 Interval history: 83yo female with restrctive lung disease, HTN and chronic respiratory failure here for dyspnea. She wears 2L O2 with sleep but family feels she needs it more continuously. Patient oxygen requirement was 9 liter/minute overnight and better today at 7L. Cough better. Feels less SOB. No CP. Slept poorly. Exam Narrative: AF 97.6 128/54 63 16 99% 7L Gen - NARD Chest - few inspiratory rhonchi CV -irregularly irregular. S1-S2. Telemetry showing AFib with controlled rate and occasional 2 sec pauses Abd - Soft, NT/ND, Positive BS Ext - No pedal edema Psych - Nml mood and affect Skin - Warm and dry Objective Data Vital Signs Vital Signs: Vital Signs - 24 hr 08/01/24 16:00 08/01/24 20:00 08/01/24 20:00 Temperature Pulse Rate 100 129 H Respiratory Rate Blood Pressure Pulse Oximetry 94 Oxygen Delivery High Flow Therapy with Na Oxygen Flow Rate 9 08/01/24 20:54 08/01/24 20:58 08/01/24 21:43 Temperature 97.8 F Pulse Rate 105 H 128 H Respiratory Rate 20 18 Blood Pressure 128/78 Pulse Oximetry 95 94 Oxygen Delivery High Flow Nasal Cannula Oxygen Flow Rate 10 08/02/24 00:00 08/02/24 02:12 08/02/24 02:25 Temperature Pulse Rate 92 106 H 104 H Respiratory Rate 20 20 Blood Pressure Pulse Oximetry Oxygen Delivery Oxygen Flow Rate 08/02/24 04:00 08/02/24 04:53 08/02/24 06:45 Temperature 97.4 F L Pulse Rate 99 115 H 106 H Respiratory Rate 20 20 Blood Pressure 141/89 H Pulse Oximetry 99 97 Oxygen Delivery High Flow Nasal Cannula Oxygen Flow Rate 9 08/02/24 06:45 08/02/24 06:55 08/02/24 08:00 Temperature Pulse Rate 106 H 103 H Respiratory Rate 20 20 Blood Pressure Pulse Oximetry Oxygen Delivery High Flow Nasal Cannula Oxygen Flow Rate 9 08/02/24 08:00 08/02/24 08:00 08/02/24 08:43 Temperature Pulse Rate 124 H 130 H Respiratory Rate Blood Pressure Pulse Oximetry 98 Oxygen Delivery High Flow Therapy with Na Oxygen Flow Rate 9 08/02/24 12:00 08/02/24 12:27 08/02/24 12:45 Temperature Pulse Rate 85 101 H Respiratory Rate 20 Blood Pressure Pulse Oximetry 98 Oxygen Delivery High Flow Therapy with Na Oxygen Flow Rate 7 08/02/24 12:55 08/02/24 14:00 08/02/24 15:42 Temperature 97.6 F Pulse Rate 102 H 63 Respiratory Rate 20 16 Blood Pressure 103/61 128/54 L Pulse Oximetry 99 Oxygen Delivery Oxygen Flow Rate Intake/Output Intake/Output: Intake & Output 07/30/24 07/31/24 08/01/24 08/02/24 23:59 23:59 23:59 23:59 Intake Total 1340 1403 630 Output Total 1750 1175 250 Balance -410 228 380 Meds/Results Medications: Active Medications Generic Name Dose Route Start Last Admin Trade Name Freq PRN Reason Stop Dose Admin Acetaminophen 650 mg 07/30/24 16:59 Acetaminophen 325 Mg Tablet PO Q4H PRN Mild Pain (1-3) or Fever Hydrocodone Bitart/Acetaminophen 1 tab 12/30/24 16:59 Hydrocodone/Acetaminophen (*Crx) 5-325 Mg Tablet PO Q4H PRN Pain Rated 4-6 Apixaban 5 mg 07/31/24 21:00 08/02/24 08:43 Apixaban 5 Mg Tablet PO 5 mg Q12HR PERFECTO Administration Carbidopa/Levodopa 2 tablet 07/31/24 06:00 08/02/24 12:19 Carbidopa/Levodopa 25/100 Mg Tablet BY MOUTH 2 tablet 0600,1200 PERFECTO Administration Carbidopa/Levodopa 1 tablet 07/30/24 22:55 08/01/24 20:28 Carbidopa/Levodopa 25/100 Mg Tablet BY MOUTH 1 tablet HS PERFECTO Administration Diltiazem HCl 30 mg 08/02/24 16:00 08/02/24 15:43 Diltiazem Hcl 30 Mg Tablet PO 30 mg Q8HR PERFECTO Administration Furosemide 40 mg 07/31/24 09:00 08/02/24 08:43 Furosemide Inj 40 Mg/4 Ml Vial IV PUSH 40 mg BID PERFECTO Administration Guaifenesin 600 mg 07/31/24 11:30 08/02/24 08:43 Guaifenesin 12 Hr 600 Mg Tabcr PO 600 mg Q12HR PERFECTO Administration Guaifenesin/Dextromethorphan 10 ml 07/31/24 11:22 Guaifenesin/Dextromethorphan 10 Ml Udc PO Q4HR PRN Cough Ipratropium [place] 0.5 mg 07/31/24 14:00 08/02/24 12:45 Ipratropium Br 0.02% Inh Soln 0.5 Mg/2.5 Ml Vial INHALATION 0.5 mg Q6HRT PERFECTO Administration Levalbuterol HCl 1.25 mg 07/31/24 14:00 08/02/24 12:45 Levalbuterol Neb 1.25 Mg/3 Ml INHALATION 1.25 mg Q6HRT PERFECTO Administration Levothyroxine Sodium 112 mcg 07/31/24 06:30 08/02/24 05:27 Levothyroxine Sodium 112 Mcg Tablet PO 112 mcg DAILY@0630 PERFECTO Administration Methylprednisolone Sodium Succinate 60 mg 07/30/24 18:00 08/02/24 12:19 Methylprednisolone Sod Succ 125 Mg Vial IV PUSH 60 mg Q6HR PERFECTO Administration Metoprolol Tartrate 100 mg 07/30/24 22:50 08/02/24 08:43 Metoprolol Tartrate 50 Mg Tab PO 100 mg Q12HR PERFECTO Administration Ondansetron HCl 4 mg 07/30/24 16:59 Ondansetron Inj 4 Mg/2 Ml Vial IV PUSH Q4H PRN Nausea Oseltamivir Phosphate 75 mg 07/31/24 06:00 08/02/24 05:27 Oseltamivir Phosphate 75 Mg Capsule PO 08/05/24 05:59 75 mg Q12H PERFECTO Administration Perflutren Lipid Microsphere 0 ml 07/30/24 17:10 Perflutren Lipid Microspheres 1.5 Ml Vial Diluted To 10 Ml Total Volume IV PUSH 08/02/24 17:10 ONCE PRN adequate visualization Protocol Perflutren Lipid Microsphere 0 ml 08/01/24 09:48 Perflutren Lipid Microspheres 1.5 Ml Vial Diluted To 10 Ml Total Volume IV PUSH 08/04/24 09:49 ONCE PRN adequate visualization Protocol Polyethylene Glycol 17 gm 08/01/24 14:14 08/01/24 14:26 Polyethylene Glycol 3350 17 Gm Powd.Pack PO 17 gm QAM PRN Administration Constipation Rosuvastatin Calcium 5 mg 07/31/24 09:00 08/02/24 08:43 Rosuvastatin 5 Mg Tablet BY MOUTH 5 mg DAILY PERFECTO Administration Radiology Results: ITS Impressions Chest X-Ray 08/02/24 06:32 Impression: Small left pleural effusion with left basilar and left perihilar airspace disease. Correlate for atelectasis/edema versus pneumonia. Labs Labs: Laboratory Results - last 24 hr 08/02/24 06:30 WBC 9.6 RBC 6.06 H Hgb 17.4 H Hct 55.7 H MCV 91.9 MCH 28.7 MCHC 31.2 L RDW 14.6 H Plt Count 252 MPV 10.3 Immature Gran % (Auto) 0.3 Neut % (Auto) 92.4 H Lymph % (Auto) 3.7 L [place] % (Auto) 3.5 Eos % (Auto) 0.0 Baso % (Auto) 0.1 L Lymph # (Auto) 0.36 L [place] # (Auto) 0.3 Eos # (Auto) 0.0 Baso # (Auto) 0.0 Abs Immat Gran (auto) 0.03 Absolute Neuts (auto) 8.9 H Absolute Nucleated RBC 0.000 Nucleated RBC % 0.0 Sodium 138 Potassium 3.7 Chloride 95 L Carbon Dioxide > 40 H Anion Gap BUN 42 H D Creatinine 0.70 Estim Creat Clear Calc 52 Estimated GFR > 60 Glucose 152 H Calcium 9.1 Phosphorus 4.6 H Magnesium 2.1 Albumin 3.6
--- NOTE | 2024-08-02 19:08 | PM.PNCARD ---
Progress Note: A&P Assessment and Plan (1) Atrial fibrillation: Qualifiers: Atrial fibrillation type: unspecified Qualified Code(s): I48.91 - Unspecified atrial fibrillation Code(s): I48.91 - Unspecified atrial fibrillation Status: Acute Assessment and Plan: PAF, - RVR in the setting of Influenza/hypoxemia -transition to oral diltiazem, continue beta-woodrow. May Start on long-acting diltiazem tomorrow - Continue apixaban (2) CHF exacerbation: Code(s): I50.9 - Heart failure, unspecified Status: Acute Assessment and Plan: - DC IV lasix, monitor renal function. Renal function is okay then we will start her on Lasix 40 mg p.o. once a day -repeat echo pending - Previous echo (2021) showed normal LV systolic function with indeterminate diastolic function and no significant valve pathology. (3) Influenza A: Code(s): J10.1 - Influenza due to other identified influenza virus with other respiratory manifestations Status: Acute Assessment and Plan: Supportive care. Management per hospitalist service. Subjective Date/time seen: 08/02/24 19:08 Interval history: Feels better, improved dyspnea, less cough Review of Systems Review of Systems: All systems reviewed & are unremarkable except as noted in HPI and below Exam Const: General: comfortable, no acute distress, alert and awake Orientation/consciousness: patient oriented x3 HENMT: Head: normal to inspection Eyes: General: appearance normal, both eyes and all related structures Pupils: Equal, round and reactive pupils present Neck: Neck: normal visual inspection, supple and no JVD Resp: Effort & Inspection: normal respiratory effort Auscultation: not clear to auscultation bilaterally, rales and rhonchi Cardio: Rate: regular rate Rhythm: abnormal rhythm irregularly irregular Heart sounds: S1 normal heart sound present, S2 normal heart sound present and Murmur heart sound present systolic GI: Auscultation: normal bowel sounds Skin: General skin exam: normal color Neuro: General: patient oriented x3 Cranial nerves: Yes Equal, round and reactive pupils present Extrem: General: normal to inspection Other: no edema Psych: Appearance: grossly normal Mental Status: mental status grossly normal Objective Data Vital Signs Vital Signs: Vital Signs - 24 hr 08/01/24 20:00 08/01/24 20:00 08/01/24 20:54 Temperature Pulse Rate 129 H 105 H Respiratory Rate 20 Blood Pressure Pulse Oximetry 94 Oxygen Delivery High Flow Therapy with Na Oxygen Flow Rate 9 08/01/24 20:58 08/01/24 21:43 08/02/24 00:00 Temperature 36.6 C Pulse Rate 128 H 92 Respiratory Rate 18 Blood Pressure 128/78 Pulse Oximetry 95 94 Oxygen Delivery High Flow Nasal Cannula Oxygen Flow Rate 10 08/02/24 02:12 08/02/24 02:25 08/02/24 04:00 Temperature Pulse Rate 106 H 104 H 99 Respiratory Rate 20 20 Blood Pressure Pulse Oximetry Oxygen Delivery Oxygen Flow Rate 08/02/24 04:53 08/02/24 06:45 08/02/24 06:45 Temperature 36.3 C L Pulse Rate 115 H 106 H 106 H Respiratory Rate 20 20 20 Blood Pressure 141/89 H Pulse Oximetry 99 97 Oxygen Delivery High Flow Nasal Cannula Oxygen Flow Rate 9 08/02/24 06:55 08/02/24 08:00 08/02/24 08:00 Temperature Pulse Rate 103 H 124 H Respiratory Rate 20 Blood Pressure Pulse Oximetry Oxygen Delivery High Flow Nasal Cannula Oxygen Flow Rate 9 08/02/24 08:00 08/02/24 08:43 08/02/24 12:00 Temperature Pulse Rate 130 H 85 Respiratory Rate Blood Pressure Pulse Oximetry 98 Oxygen Delivery High Flow Therapy with Na Oxygen Flow Rate 9 08/02/24 12:27 08/02/24 12:45 08/02/24 12:55 Temperature Pulse Rate 101 H 102 H Respiratory Rate 20 20 Blood Pressure Pulse Oximetry 98 Oxygen Delivery High Flow Therapy with Na Oxygen Flow Rate 7 08/02/24 14:00 08/02/24 15:42 08/02/24 16:00 Temperature 36.4 C Pulse Rate 63 86 Respiratory Rate 16 Blood Pressure 103/61 128/54 L Pulse Oximetry 99 Oxygen Delivery Oxygen Flow Rate Intake/Output Intake/Output: Intake & Output 07/30/24 07/31/24 08/01/24 08/02/24 23:59 23:59 23:59 23:59 Intake Total 1340 1403 1310 Output Total 1750 1175 250 Balance -988 955 0688 Meds/Results Medications: Active Medications Generic Name Dose Route Start Last Admin Trade Name Freq PRN Reason Stop Dose Admin Acetaminophen 650 mg 07/30/24 16:59 Acetaminophen 325 Mg Tablet PO Q4H PRN Mild Pain (1-3) or Fever Hydrocodone Bitart/Acetaminophen 1 tab 07/30/24 16:59 Hydrocodone/Acetaminophen (*Crx) 5-325 Mg Tablet PO Q4H PRN Pain Rated 4-6 Apixaban 5 mg 07/31/24 21:00 08/02/24 08:43 Apixaban 5 Mg Tablet PO 5 mg Q12HR PERFECTO Administration Carbidopa/Levodopa 2 tablet 07/31/24 06:00 08/02/24 12:19 Carbidopa/Levodopa 25/100 Mg Tablet BY MOUTH 2 tablet 0600,1200 PERFECTO Administration Carbidopa/Levodopa 1 tablet 07/30/24 22:55 08/01/24 20:28 Carbidopa/Levodopa 25/100 Mg Tablet BY MOUTH 1 tablet HS PERFECTO Administration Diltiazem HCl 30 mg 08/02/24 16:00 08/02/24 15:43 Diltiazem Hcl 30 Mg Tablet PO 30 mg Q8HR PERFECTO Administration Furosemide 40 mg 07/31/24 09:00 08/02/24 17:11 Furosemide Inj 40 Mg/4 Ml Vial IV PUSH 40 mg BID PERFECTO Administration Guaifenesin 600 mg 07/31/24 11:30 08/02/24 08:43 Guaifenesin 12 Hr 600 Mg Tabcr PO 600 mg Q12HR PERFECTO Administration Guaifenesin/Dextromethorphan 10 ml 07/31/24 11:22 Guaifenesin/Dextromethorphan 10 Ml Udc PO Q4HR PRN Cough Ipratropium [place] 0.5 mg 07/31/24 14:00 08/02/24 12:45 Ipratropium Br 0.02% Inh Soln 0.5 Mg/2.5 Ml Vial INHALATION 0.5 mg Q6HRT PERFECTO Administration Levalbuterol HCl 1.25 mg 07/31/24 14:00 08/02/24 12:45 Levalbuterol Neb 1.25 Mg/3 Ml INHALATION 1.25 mg Q6HRT PERFECTO Administration Levothyroxine Sodium 112 mcg 07/31/24 06:30 08/02/24 05:27 Levothyroxine Sodium 112 Mcg Tablet PO 112 mcg DAILY@0630 [facility] Administration Methylprednisolone Sodium Succinate 40 mg 08/03/24 00:00 Methylprednisolone Sod Succ 125 Mg Vial IV PUSH Q6HR [facility] Metoprolol Tartrate 100 mg 07/30/24 22:50 08/02/24 08:43 Metoprolol Tartrate 50 Mg Tab PO 100 mg Q12HR PERFECTO Administration Ondansetron HCl 4 mg 07/30/24 16:59 Ondansetron Inj 4 Mg/2 Ml Vial IV PUSH Q4H PRN Nausea Oseltamivir Phosphate 75 mg 07/31/24 06:00 08/02/24 17:11 Oseltamivir Phosphate 75 Mg Capsule PO 08/05/24 05:59 75 mg Q12H PERFECTO Administration Perflutren Lipid Microsphere 0 ml 08/01/24 09:48 Perflutren Lipid Microspheres 1.5 Ml Vial Diluted To 10 Ml Total Volume IV PUSH 08/04/24 09:49 ONCE PRN adequate visualization Protocol Polyethylene Glycol 17 gm 08/01/24 14:14 08/01/24 14:26 Polyethylene Glycol 3350 17 Gm Powd.Pack PO 17 gm QAM PRN Administration Constipation Rosuvastatin Calcium 5 mg 07/31/24 09:00 08/02/24 08:43 Rosuvastatin 5 Mg Tablet BY MOUTH 5 mg DAILY PERFECTO Administration Radiology Results: ITS Impressions Chest X-Ray 08/02/24 06:32 Impression: Small left pleural effusion with left basilar and left perihilar airspace disease. Correlate for atelectasis/edema versus pneumonia. Labs Labs: Laboratory Results - last 24 hr 08/02/24 06:30 WBC 9.6 RBC 6.06 H Hgb 17.4 H Hct 55.7 H MCV 91.9 MCH 28.7 MCHC 31.2 L RDW 14.6 H Plt Count 252 MPV 10.3 Immature Gran % (Auto) 0.3 Neut % (Auto) 92.4 H Lymph % (Auto) 3.7 L [place] % (Auto) 3.5 Eos % (Auto) 0.0 Baso % (Auto) 0.1 L Lymph # (Auto) 0.36 L [place] # (Auto) 0.3 Eos # (Auto) 0.0 Baso # (Auto) 0.0 Abs Immat Gran (auto) 0.03 Absolute Neuts (auto) 8.9 H Absolute Nucleated RBC 0.000 Nucleated RBC % 0.0 Sodium 138 Potassium 3.7 Chloride 95 L Carbon Dioxide > 40 H Anion Gap BUN 42 H D Creatinine 0.70 Estim Creat Clear Calc 52 Estimated GFR > 60 Glucose 152 H Calcium 9.1 Phosphorus 4.6 H Magnesium 2.1 Albumin 3.6
[2024-08-02] MEDS: CARBIDOPA/LEVODOPA 25/100 MG TABLET 1 TABLET BY MOUTH (21:14)
[2024-08-03] VITALS (18 sets, daily range): BP systolic 139–145; BP diastolic 66–83; PULSE 66–115; RESP 17–22; TEMP 36.1–36.9; O2SAT 90–98
--- NOTE | 2024-08-03 | ECHO_ITS ---
Patient Info Name: Jing Garcias Age: 83 years : 1940 Gender: Female Ht: 64 in Wt: 159 lbs BSA: 1.82 m2 HR: 94 bpm BP: 145 / 83 mmHg Technical Quality: Fair Exam Date: 08/03/2024 2:47 PM Exam Location: Echo Lab Patient Status: Inpatient Admit Date: 07/30/2024 Staff Ordering Physician: Deandre Kent MD/mane) Envelope Sealer: Darlin Jolly RDCS Attending Provider: Mariza Mcdonald MD Referring Physician: Yoli MALONE; Exam Type: CA echo doppler color flow Study Info Indications - AFIB Complete two-dimensional, color flow and Doppler transthoracic echocardiogram is performed with contrast to opacify the left ventricle and to improve the deliniation of the left ventricle endocardial borders. Summary 1. Left ventricular chamber dimension is normal. 2. Left ventricular systolic function is normal, estimated at 65-70%. 3. There is moderately increased left ventricular wall thickness. 4. Left ventricular septal wall motion is normal. 5. The left ventricular diastolic function is normal. 6. Right ventricular chamber dimension is normal. 7. Right ventricular systolic function is normal. 8. There is moderate aortic valve sclerosis. 9. There is mild aortic valve stenosis. 10. There is no mitral valve regurgitation. 11. There is a hyperechoic mobile density attached to the post annulus of the mitral valve. Most likely calcified nodule. Vegetation cannot be ruled out. Recommendations * Consider DIMITRI if suspicion for IE is high. Left Ventricle Left ventricular chamber dimension is normal. Left ventricular systolic function is normal, estimated at 65-70%. There is moderately increased left ventricular wall thickness. Left ventricular septal wall motion is normal. The left ventricular diastolic function is normal. Right Ventricle Right ventricular chamber dimension is normal. Right ventricular systolic function is normal. Left Atria Left atrial chamber dimension is enlarged. Right Atria Right atrial chamber dimension is enlarged. Aortic Valve The aortic valve is trileaflet. There is moderate aortic valve sclerosis. There is mild aortic valve stenosis. There is no aortic valve regurgitation. Pulmonic Valve The pulmonic valve is normal. There is no pulmonic valve stenosis. There is mild pulmonic regurgitation. Mitral Valve The mitral valve has posterior annular calcification. There is no mitral valve stenosis. There is no mitral valve regurgitation. There is a hyperechoic mobile density attached to the post annulus of the mitral valve. Most likely calcified nodule. Vegetation cannot be ruled out. Tricuspid Valve The tricuspid valve leaflets are normal. There is no significant tricuspid valve stenosis. There is no tricuspid valve regurgitation. PASP cannot be calculated because of insufficient TR jet. Pericardium/Pleural The pericardium appears normal. There is no pericardial effusion. Inferior Vena Cava Normal inferior vena cava with <50% collapse upon inspiration consistent with normal right atrial pressure, 8 mmHg. Aorta The aortic root size at the sinus of Valsalva is normal. The prox ascending aorta size is normal. Left Ventricular Outflow Tract Name Value Normal LVOT 2D LVOT Diameter 1.9 cm LVOT Doppler LVOT Peak Velocity 104 cm/s LVOT Peak Gradient 4 mmHg LVOT Mean Gradient 2 mmHg LVOT VTI 15 cm LVOT VTI/AV VTI Ratio 0.6 LVOT Stroke Volume 42 ml LVOT CO 8.8 l/min LVOT CI 4.9 l/min/m2 Pulmonic Valve Name Value Normal RVOT Doppler RVOT Peak Gradient 2 mmHg PV Doppler PV Peak Velocity 59 cm/s PV Peak Gradient 1 mmHg Mitral Valve Name Value Normal MV Doppler MV Decel [place] 682 cm/s2 MV PHT 38 ms MV Area (PHT) 5.8 cm2 4.0-5.0 MV Diastolic Function MV E Peak Velocity 90 cm/s MV A Peak Velocity 19 cm/s MV E/A 4.8 MV Decel Time 132 ms MV Annular TDI MV Septal e' Velocity 5.4 cm/s >=8.0 MV E/e' (Septal) 16.6 <=8.0 MV Lateral e' Velocity 7.9 cm/s >=10.0 MV E/e' (Lateral) 11.4 <=8.0 MV e' Average 6.64 MV E/e' (Average) 14.0 Tricuspid Valve Name Value Normal Estimated PAP/RSVP RA Pressure 8 mmHg <=5 TV Annular TDI TV Lateral Sonya s' Velocity 10.3 cm/s 9.5-18.7 Aorta Name Value Normal Ascending Aorta Ao Root Diameter (MM) 2.9 cm Ao Root Diam Index (MM) 1.6 cm/m2 Ao [place] Diameter 2.6 cm 2.3-2.9 Aortic Valve Name Value Normal AV Doppler AV Peak Velocity 163 cm/s AV Peak Gradient 8 mmHg AV Mean Gradient 4 mmHg AV VTI 24 cm AV Area (Cont Eq VTI) 1.8 cm2 >=3.0 AV Area (Cont Eq Binh) 1.8 cm2 AV V1/V2 Ratio 0.64 AV Regurgitation 2D LVOT Area 2.9 cm2 Ventricles Name Value Normal LV Dimensions 2D/MM IVS Diastolic Thickness (2D) 1.7 cm 0.6-1.0 LVID Diastole (2D) 2.7 cm 3.8-5.2 LVIW Diastolic Thickness (2D) 1.5 cm 0.6-0.9 LVID Systole (2D) 2.2 cm 2.2-3.5 LVOT Diameter 1.9 cm LV Mass (2D Cubed) 161.24 g 67.00-162.00 LV Mass Index (2D Cubed) 88 g/m2 43-95 Relative Wall Thickness (2D) 1.10 LV Fractional Shortening/Ejection Fraction 2D/MM LV Fractional Shortening (2D) 21 % 27-45 LV EF (2D Teicholz) 44 % 54-74 LV Diastolic Volume (4C MOD) 46 ml LV EF (4C MOD) 82 % LV Diastolic Volume (2C MOD) 43 ml LV EF (2C MOD) 82 % LV Diastolic Volume (BP MOD) 45 ml 46-106 LV Diastolic Volume Index (BP MOD) 25 ml/m2 29-61 LV Systolic Volume (BP MOD) 8 ml 14-42 LV Systolic Volume Index (BP MOD) 4 ml/m2 8-24 LV EF (BP MOD) 82 % 54-74 LV Diastolic Length (4C) 5.5 cm LV Systolic Length (4C) 4.7 cm LV Stroke Volume (4C MOD) 38 ml Atria Name Value Normal LA Dimensions LA Dimension (MM) 4.2 cm 2.7-3.8 LA Volume (4C A-L) 74 ml LA Volume (BP A-L) 71 ml RA Dimensions RA Area (4C) 21.6 cm2 <=18.0 Report Signatures
[2024-08-03] MEDS: methylPREDNISolone SOD SUCC 40 MG VIAL IV PUSH ×4 (00:40→17:31)
[2024-08-03] MEDS: LEVALBUTEROL NEB 1.25 MG/3 ML INHALATION ×3 (03:14→20:54)
[2024-08-03] MEDS: IPRATROPIUM BR 0.02% INH SOLN 0.5 MG/2.5 ML VIAL INHALATION ×3 (03:15→20:54)
[2024-08-03] MEDS: OSELTAMIVIR PHOSPHATE 75 MG CAPSULE PO ×2 (05:25→17:31)
[2024-08-03] MEDS: dilTIAZem HCL 30 MG TABLET PO (05:25)
[2024-08-03] MEDS: LEVOTHYROXINE SODIUM 112 MCG TABLET PO (05:25)
[2024-08-03] MEDS: CARBIDOPA/LEVODOPA 25/100 MG TABLET 2 TABLET BY MOUTH ×2 (05:27→11:28)
[2024-08-03] MEDS: ROSUVASTATIN 5 MG TABLET BY MOUTH (08:01)
[2024-08-03] MEDS: guaiFENesin 12 HR 600 MG TABCR PO ×2 (08:01→21:01)
[2024-08-03] MEDS: APIXABAN 5 MG TABLET PO ×2 (08:01→21:01)
[2024-08-03] MEDS: METOPROLOL TARTRATE 50 MG TAB 100 MG PO ×2 (08:01→21:02)
[2024-08-03 08:34] LABS: Blood Urea Nitrogen 49 mg/dL (7-17); Calcium 9.2 mg/dL (8.4-10.2); Carbon Dioxide > 40 mmol/L (22-30); Chloride 91 mmol/L (98-107); Estimated CRCL calculation 52 ml/min; Estimated Glomerular Filt Rate > 60; Glucose 157 mg/dL (65-110); Sodium 138 mmol/L (137-145)
[2024-08-03] MEDS: dilTIAZem HCL CD 120 MG CAP.24HR PO (11:28)
--- NOTE | 2024-08-03 12:14 | P.PNIM_ITS ---
Progress Note: A&P Assessment and Plan (1) Influenza A: Code(s): J10.1 - Influenza due to other identified influenza virus with other respiratory manifestations Status: Acute (2) CHF exacerbation: Code(s): I50.9 - Heart failure, unspecified Status: Acute (3) Acute respiratory distress: Code(s): R06.03 - Acute respiratory distress Status: Inactive (4) Atrial fibrillation: Qualifiers: Atrial fibrillation type: unspecified Qualified Code(s): I48.91 - Unspecified atrial fibrillation Code(s): I48.91 - Unspecified atrial fibrillation Status: Acute (5) Hyperlipidemia: Qualifiers: Hyperlipidemia type: mixed hyperlipidemia Qualified Code(s): E78.2 - Mixed hyperlipidemia Code(s): E78.5 - Hyperlipidemia, unspecified Status: Acute (6) Essential hypertension: Code(s): I10 - Essential (primary) hypertension Status: Acute (7) Parkinson's 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, without mention of fluctuations: Qualifiers: Fluctuating manifestations: without fluctuating manifestations Qualified Code(s): G20.A1 - Parkinson's 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, without mention of fluctuations Code(s): G20.A1 - Parkinson's 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, without mention of fluctuations Status: Acute Plan This is an 83-year-old female presents to the ED with increased generalized weakness fatigue and went to urgent care where she was found to be hypoxic. She also reported cough. On the ED evaluation she was hypoxic 84% on room air was placed on 4 L oxygen via nasal cannula mildly tachycardic. AFib on EKG. Laboratory data showed normal WBC 7.8 hemoglobin of 15.4 platelet 186 Chem panel was unremarkable. BNP was elevated at 3840. Influenza RSV COVID swab tested positive for influenza A. Chest x-ray showed mild pulmonary vascular congestion with small bilateral pleural effusion and adjacent compressive atelectasis. Patient on chronic anticoagulation with apixaban. Patient admitted started on Tamiflu for influenza a. Will check procalcitonin Also treated for acute congestive heart failure. No prior diagnosis of congestive heart failure the she has been worked up for dyspnea on exertion in the past. Cardiology consulted. Echo ordered. IV Lasix b.i.d. repeat E chest x-ray with improved congestion. Because of atrial fibrillation will change DuoNeb to Xopenex and ipratropium. Droplet isolation to continue. Last echo 2021 with EF 70% trace TR RVSP 37 mild LVH Atrial fibrillation with rapid ventricular rate cardiology on board changed to Xopenex continue home metoprolol and Eliquis Hypertension Hyperlipidemia Parkinson's disease Sleep apnea uses oxygen at night Restrictive lung disease with kyphosis plans to get a portable oxygen concentrator in the past per pulmonary note and family. Will need home oxygen evaluation at the time of discharge to evaluate this. Hypothyroidism 08/01/24 - Assuming care. Continue Tamiflu for Influenza. Wean O2 as tolerated. She does have underlying O2 requirements but worse now. Encourage IS use. Consider a component of CHF as well. Remains on IV lasix. Echo ordered. Replace potassium to keep above 4.0. PT/OT ordered. Check CXR in the morning 08/02/24 - CXR showing small left pleural effusion with left basliar and left perihilar airspace disease. Continue Tamiflu to complete a course. Continue to encourage being up. Encourage IS use. No wheezing. Will back down on steroids. Switch to oral steroids in 1-2 days. Labs stable. Heart rate better controlled afterIV Digoxin and adding oral diltiazem. Serum bicarb >40 - change to oral Lasix soon? Continue PT/OT. 08/03/24 - Feels better. AFib under control. O2 requirement was better yesterday but still with considerable O2 requirement and not trending as expected. Echo pending. Will stop steroids after today. Lasix stopped 08/02/24. Continue bronchodilators. Continue Tamiflu. Wean O2 as tolerated. Acetazolamide x 1. May benefit from a 10 day course of Tamiflu. No fevers or elevated WBC but consider 2nd bacterial infection. Check sputum and blood cx. Start abx. Consider CT chest DVT prophylaxis on Eliquis Code status do not resuscitate Subjective Date/time seen: 08/03/24 12:14 Interval history: 83yo female with restrctive lung disease, HTN and chronic respiratory failure here for dyspnea. She wears 2L O2 with sleep but family feels she needs it more continuously. SOB better. No CP. No n/v. Cough productive of leyva sputum. Walking in room. Exam Narrative: AF 97.6 145/83 85 20 93% 8L Gen - NARD Chest - bibasilar inspiratory crackles CV -irregularly irregular. S1-S2. Telemetry showing AFib with controlled rate Abd - Soft, NT/ND, Positive BS Ext - No pedal edema Psych - Nml mood and affect Skin - Warm and dry Objective Data Vital Signs Vital Signs: Vital Signs - 24 hr 08/02/24 12:27 08/02/24 12:45 08/02/24 12:55 Temperature Pulse Rate 101 H 102 H Respiratory Rate 20 20 Blood Pressure Pulse Oximetry 98 Oxygen Delivery High Flow Therapy with Na Oxygen Flow Rate 7 08/02/24 14:00 08/02/24 15:42 08/02/24 16:00 Temperature 97.6 F Pulse Rate 63 86 Respiratory Rate 16 Blood Pressure 103/61 128/54 L Pulse Oximetry 99 Oxygen Delivery Oxygen Flow Rate 08/02/24 20:00 08/02/24 20:00 08/02/24 20:52 Temperature 97.4 F L Pulse Rate 85 96 Respiratory Rate 20 Blood Pressure 150/76 H Pulse Oximetry 91 91 Oxygen Delivery High Flow Therapy with Na Oxygen Flow Rate 7 08/02/24 21:01 08/02/24 21:02 08/02/24 21:15 Temperature Pulse Rate 96 91 Respiratory Rate 20 20 Blood Pressure Pulse Oximetry 91 Oxygen Delivery High Flow Nasal Cannula Oxygen Flow Rate 7 08/03/24 00:00 08/03/24 03:15 08/03/24 03:30 Temperature Pulse Rate 75 80 79 Respiratory Rate 18 18 Blood Pressure Pulse Oximetry Oxygen Delivery Oxygen Flow Rate 08/03/24 04:00 08/03/24 05:41 08/03/24 08:00 Temperature 97.6 F Pulse Rate 77 94 105 H Respiratory Rate 22 H Blood Pressure 145/83 H Pulse Oximetry 90 Oxygen Delivery Oxygen Flow Rate 08/03/24 08:00 08/03/24 08:01 08/03/24 09:24 Temperature Pulse Rate 115 H 76 Respiratory Rate 20 Blood Pressure Pulse Oximetry 94 93 Oxygen Delivery High Flow Nasal Cannula High Flow Nasal Cannula Oxygen Flow Rate 8 8 08/03/24 09:24 08/03/24 09:34 08/03/24 12:00 Temperature Pulse Rate 76 66 85 Respiratory Rate 20 20 Blood Pressure Pulse Oximetry Oxygen Delivery Oxygen Flow Rate Intake/Output Intake/Output: Intake & Output 07/31/24 08/01/24 08/02/24 08/03/24 23:59 23:59 23:59 23:59 Intake Total 1340 1403 1310 315 Output Total 1750 1175 250 500 Balance -821 856 2613 -185 Meds/Results Medications: Active Medications Generic Name Dose Route Start Last Admin Trade Name Freq PRN Reason Stop Dose Admin Acetaminophen 650 mg 07/30/24 16:59 Acetaminophen 325 Mg Tablet PO Q4H PRN Mild Pain (1-3) or Fever Hydrocodone Bitart/Acetaminophen 1 tab 07/30/24 16:59 Hydrocodone/Acetaminophen (*Crx) 5-325 Mg Tablet PO Q4H PRN Pain Rated 4-6 Apixaban 5 mg 07/31/24 21:00 08/03/24 08:01 Apixaban 5 Mg Tablet PO 5 mg Q12HR PERFECTO Administration Carbidopa/Levodopa 2 tablet 07/31/24 06:00 08/03/24 11:28 Carbidopa/Levodopa 25/100 Mg Tablet BY MOUTH 2 tablet 0600,1200 PERFECTO Administration Carbidopa/Levodopa 1 tablet 07/30/24 22:55 08/02/24 21:14 Carbidopa/Levodopa 25/100 Mg Tablet BY MOUTH 1 tablet HS PERFECTO Administration Diltiazem HCl 120 mg 08/03/24 12:00 08/03/24 11:28 Diltiazem Hcl Cd 120 Mg Cap.24hr PO 120 mg QAM PERFECTO Administration Guaifenesin 600 mg 07/31/24 11:30 08/03/24 08:01 Guaifenesin 12 Hr 600 Mg Tabcr PO 600 mg Q12HR PERFECTO Administration Guaifenesin/Dextromethorphan 10 ml 07/31/24 11:22 Guaifenesin/Dextromethorphan 10 Ml Udc PO Q4HR PRN Cough Ipratropium [place] 0.5 mg 07/31/24 14:00 08/03/24 09:24 Ipratropium Br 0.02% Inh Soln 0.5 Mg/2.5 Ml Vial INHALATION 0.5 mg Q6HRT PERFECTO Administration Levalbuterol HCl 1.25 mg 07/31/24 14:00 08/03/24 09:24 Levalbuterol Neb 1.25 Mg/3 Ml INHALATION 1.25 mg Q6HRT PERFECTO Administration Levothyroxine Sodium 112 mcg 07/31/24 06:30 08/03/24 05:25 Levothyroxine Sodium 112 Mcg Tablet PO 112 mcg DAILY@0630 PERFECTO Administration Methylprednisolone Sodium Succinate 40 mg 08/03/24 00:00 08/03/24 11:28 Methylprednisolone Sod Succ 40 Mg Vial IV PUSH 40 mg Q6HR PERFECTO Administration Metoprolol Tartrate 100 mg 07/30/24 22:50 08/03/24 08:01 Metoprolol Tartrate 50 Mg Tab PO 100 mg Q12HR PERFECTO Administration Ondansetron HCl 4 mg 07/30/24 16:59 Ondansetron Inj 4 Mg/2 Ml Vial IV PUSH Q4H PRN Nausea Oseltamivir Phosphate 75 mg 07/31/24 06:00 08/03/24 05:25 Oseltamivir Phosphate 75 Mg Capsule PO 08/05/24 05:59 75 mg Q12H PERFECTO Administration Perflutren Lipid Microsphere 0 ml 08/01/24 09:48 Perflutren Lipid Microspheres 1.5 Ml Vial Diluted To 10 Ml Total Volume IV PUSH 08/04/24 09:49 ONCE PRN adequate visualization Protocol Polyethylene Glycol 17 gm 08/01/24 14:14 08/01/24 14:26 Polyethylene Glycol 3350 17 Gm Powd.Pack PO 17 gm QAM PRN Administration Constipation Rosuvastatin Calcium 5 mg 07/31/24 09:00 08/03/24 08:01 Rosuvastatin 5 Mg Tablet BY MOUTH 5 mg DAILY PERFECTO Administration Radiology Results: ITS Impressions Chest X-Ray 08/02/24 06:32 Impression: Small left pleural effusion with left basilar and left perihilar airspace disease. Correlate for atelectasis/edema versus pneumonia. Labs Labs: Laboratory Results - last 24 hr 08/03/24 08:01 Sodium 138 Potassium 4.0 Chloride 91 L Carbon Dioxide > 40 H Anion Gap BUN 49 H Creatinine 0.70 Estim Creat Clear Calc 52 Estimated GFR > 60 Glucose 157 H Calcium 9.2
--- NOTE | 2024-08-03 17:47 | P.PNCA_ITS ---
Progress Note: A&P Assessment and Plan (1) Atrial fibrillation: Qualifiers: Atrial fibrillation type: unspecified Qualified Code(s): I48.91 - Unspecified atrial fibrillation Code(s): I48.91 - Unspecified atrial fibrillation Status: Acute Assessment and Plan: PAF/Flutter -rates controlled but she has Lopez she has developed atrial flutter -continue long-acting calcium channel woodrow and beta-woodrow for now. Continue to monitor heart rate - Continue apixaban (2) CHF exacerbation: Code(s): I50.9 - Heart failure, unspecified Status: Acute Assessment and Plan: -renal function stable however BUN has increased will hold diuretics for now - Previous echo (2021) showed normal LV systolic function with indeterminate diastolic function and no significant valve pathology. (3) Influenza A: Code(s): J10.1 - Influenza due to other identified influenza virus with other respiratory manifestations Status: Acute Assessment and Plan: Supportive care. Management per hospitalist service. Subjective Date/time seen: 08/03/24 17:47 Interval history: Feels better, improved dyspnea, less cough Still requiring a fair amount of oxygen Her rate is better controlled but monitor show she is now in atrial flutter Review of Systems Review of Systems: All systems reviewed & are unremarkable except as noted in HPI and below Exam Const: General: comfortable, no acute distress, alert and awake Orientation/consciousness: patient oriented x3 HENMT: Head: normal to inspection Eyes: General: appearance normal, both eyes and all related structures Pupils: Equal, round and reactive pupils present Neck: Neck: normal visual inspection, supple and no JVD Resp: Effort & Inspection: normal respiratory effort Auscultation: not clear to auscultation bilaterally, rales and rhonchi Cardio: Rate: regular rate Rhythm: abnormal rhythm irregularly irregular Heart sounds: S1 normal heart sound present, S2 normal heart sound present and Murmur heart sound present systolic GI: Auscultation: normal bowel sounds Skin: General skin exam: normal color Neuro: General: patient oriented x3 Cranial nerves: Yes Equal, round and reactive pupils present Extrem: General: normal to inspection Other: no edema Psych: Appearance: grossly normal Mental Status: mental status grossly normal Objective Data Vital Signs Vital Signs: Vital Signs - 24 hr 08/02/24 20:00 08/02/24 20:00 08/02/24 20:52 Temperature 36.3 C L Pulse Rate 85 96 Respiratory Rate 20 Blood Pressure 150/76 H Pulse Oximetry 91 91 Oxygen Delivery High Flow Therapy with Na Oxygen Flow Rate 7 08/02/24 21:01 08/02/24 21:02 08/02/24 21:15 Temperature Pulse Rate 96 91 Respiratory Rate 20 20 Blood Pressure Pulse Oximetry 91 Oxygen Delivery High Flow Nasal Cannula Oxygen Flow Rate 7 08/03/24 00:00 08/03/24 03:15 08/03/24 03:30 Temperature Pulse Rate 75 80 79 Respiratory Rate 18 18 Blood Pressure Pulse Oximetry Oxygen Delivery Oxygen Flow Rate 08/03/24 04:00 08/03/24 05:41 08/03/24 08:00 Temperature 36.4 C Pulse Rate 77 94 105 H Respiratory Rate 22 H Blood Pressure 145/83 H Pulse Oximetry 90 Oxygen Delivery Oxygen Flow Rate 08/03/24 08:00 08/03/24 08:01 08/03/24 09:24 Temperature Pulse Rate 115 H 76 Respiratory Rate 20 Blood Pressure Pulse Oximetry 94 93 Oxygen Delivery High Flow Nasal Cannula High Flow Nasal Cannula Oxygen Flow Rate 8 8 08/03/24 09:24 08/03/24 09:34 08/03/24 12:00 Temperature Pulse Rate 76 66 85 Respiratory Rate 20 20 Blood Pressure Pulse Oximetry Oxygen Delivery Oxygen Flow Rate 08/03/24 14:00 08/03/24 15:00 08/03/24 16:00 Temperature 36.1 C L Pulse Rate 85 85 Respiratory Rate 17 Blood Pressure 139/66 Pulse Oximetry 97 96 Oxygen Delivery High Flow Nasal Cannula Oxygen Flow Rate 7 Intake/Output Intake/Output: Intake & Output 07/31/24 08/01/24 08/02/24 08/03/24 23:59 23:59 23:59 23:59 Intake Total 1340 1403 1310 435 Output Total 1750 1175 250 500 Balance -427 996 3811 -65 Meds/Results Medications: Active Medications Generic Name Dose Route Start Last Admin Trade Name Freq PRN Reason Stop Dose Admin Acetaminophen 650 mg 07/30/24 16:59 Acetaminophen 325 Mg Tablet PO Q4H PRN Mild Pain (1-3) or Fever Hydrocodone Bitart/Acetaminophen 1 tab 07/30/24 16:59 Hydrocodone/Acetaminophen (*Crx) 5-325 Mg Tablet PO Q4H PRN Pain Rated 4-6 Apixaban 5 mg 07/31/24 21:00 08/03/24 08:01 Apixaban 5 Mg Tablet PO 5 mg Q12HR [facility] Administration Carbidopa/Levodopa 2 tablet 07/31/24 06:00 08/03/24 11:28 Carbidopa/Levodopa 25/100 Mg Tablet BY MOUTH 2 tablet 0600,1200 PERFECTO Administration Carbidopa/Levodopa 1 tablet 07/30/24 22:55 08/02/24 21:14 Carbidopa/Levodopa 25/100 Mg Tablet BY MOUTH 1 tablet HS [facility] Administration Diltiazem HCl 120 mg 08/03/24 12:00 08/03/24 11:28 Diltiazem Hcl Cd 120 Mg Cap.24hr PO 120 mg QAM [facility] Administration Guaifenesin 600 mg 07/31/24 11:30 08/03/24 08:01 Guaifenesin 12 Hr 600 Mg Tabcr PO 600 mg Q12HR [facility] Administration Guaifenesin/Dextromethorphan 10 ml 07/31/24 11:22 Guaifenesin/Dextromethorphan 10 Ml Udc PO Q4HR PRN Cough Ipratropium [place] 0.5 mg 07/31/24 14:00 08/03/24 09:24 Ipratropium Br 0.02% Inh Soln 0.5 Mg/2.5 Ml Vial INHALATION 0.5 mg Q6HRT [facility] Administration Levalbuterol HCl 1.25 mg 07/31/24 14:00 08/03/24 14:47 Levalbuterol Neb 1.25 Mg/3 Ml INHALATION Not Given Q6HRT [facility] Levothyroxine Sodium 112 mcg 07/31/24 06:30 08/03/24 05:25 Levothyroxine Sodium 112 Mcg Tablet PO 112 mcg DAILY@0630 [facility] Administration Methylprednisolone Sodium Succinate 40 mg 08/03/24 00:00 08/03/24 17:31 Methylprednisolone Sod Succ 40 Mg Vial IV PUSH 40 mg Q6HR [facility] Administration Metoprolol Tartrate 100 mg 07/30/24 22:50 08/03/24 08:01 Metoprolol Tartrate 50 Mg Tab PO 100 mg Q12HR [facility] Administration Ondansetron HCl 4 mg 07/30/24 16:59 Ondansetron Inj 4 Mg/2 Ml Vial IV PUSH Q4H PRN Nausea Oseltamivir Phosphate 75 mg 07/31/24 06:00 08/03/24 17:31 Oseltamivir Phosphate 75 Mg Capsule PO 08/05/24 05:59 75 mg Q12H PERFECTO Administration Perflutren Lipid Microsphere 0 ml 08/01/24 09:48 Perflutren Lipid Microspheres 1.5 Ml Vial Diluted To 10 Ml Total Volume IV PUSH 08/04/24 09:49 ONCE PRN adequate visualization Protocol Polyethylene Glycol 17 gm 08/01/24 14:14 08/01/24 14:26 Polyethylene Glycol 3350 17 Gm Powd.Pack PO 17 gm QAM PRN Administration Constipation Rosuvastatin Calcium 5 mg 07/31/24 09:00 08/03/24 08:01 Rosuvastatin 5 Mg Tablet BY MOUTH 5 mg DAILY PERFECTO Administration Radiology Results: ITS Impressions Chest X-Ray 08/02/24 06:32 Impression: Small left pleural effusion with left basilar and left perihilar airspace disease. Correlate for atelectasis/edema versus pneumonia. Labs Labs: Laboratory Results - last 24 hr 08/03/24 08:01 Sodium 138 Potassium 4.0 Chloride 91 L Carbon Dioxide > 40 H Anion Gap BUN 49 H Creatinine 0.70 Estim Creat Clear Calc 52 Estimated GFR > 60 Glucose 157 H Calcium 9.2
[2024-08-03] MEDS: acetaZOLAMIDE SODIUM FOR INJ 500 MG VIAL 250 MG IV PUSH (18:19)
[2024-08-03] MEDS: cefTRIAXone 2 GM/NS 100 ML 2 GM/100 ML BAG IVPB (18:19)
[2024-08-03 19:19] LABS: Blood Urea Nitrogen 60 mg/dL (7-17); Calcium 9.2 mg/dL (8.4-10.2); Carbon Dioxide > 40 mmol/L (22-30); Chloride 93 mmol/L (98-107); Estimated CRCL calculation 52 ml/min; Estimated Glomerular Filt Rate > 60; Glucose 242 mg/dL (65-110); Potassium 4.3 mmol/L (3.4-5.0); Sodium 137 mmol/L (137-145)
[2024-08-03 19:57] LABS: MRSA (PCR) NOT DETECTED (NOT DETECTE)
[2024-08-03] MEDS: VANCOMYCIN 1,750 MG/NS 500 ML 1,750 MG/500 ML BAG 250 MG IVPB (21:01)
[2024-08-03] MEDS: CARBIDOPA/LEVODOPA 25/100 MG TABLET 1 TABLET BY MOUTH (21:01)
[2024-08-04] VITALS (16 sets, daily range): BP systolic 132–145; BP diastolic 66–83; PULSE 67–105; RESP 18–24; TEMP 36–36.5; O2SAT 91–95
[2024-08-04] MEDS: LEVALBUTEROL NEB 1.25 MG/3 ML INHALATION ×4 (03:55→21:26)
[2024-08-04] MEDS: LEVOTHYROXINE SODIUM 112 MCG TABLET PO (05:43)
[2024-08-04] MEDS: OSELTAMIVIR PHOSPHATE 75 MG CAPSULE PO (05:43)
[2024-08-04] MEDS: CARBIDOPA/LEVODOPA 25/100 MG TABLET 2 TABLET BY MOUTH ×2 (05:52→13:56)
[2024-08-04 07:52] LABS: Basophils Percent Auto 0.1 % (0.2-1.2); Hematocrit 54.2 % (37.0-47.0); Hemoglobin 17.1 g/dL (12.0-15.0); Immature Granulocyte Absolute 0.03 K/mm3 (0.00-0.031); Immature Granulocyte Percent A 0.3 % (0-0.5); Lymphocytes Percent Auto 4.3 % (18.3-44.2); Mean Corpuscular HGB Conc 31.5 g/dl (32-36); Mean Platelet Volume 10.2 fl (7.4-10.4); Monocytes Absolute Auto 0.5 K/mm3 (0.1-0.6); Monocytes Percent Auto 5.8 % (2.6-8.5); Neutrophils Absolute Auto 8.3 K/mm3 (1.3-6.7); Neutrophils Percent Auto 89.5 % (45.5-73.1); Platelet Count Result 215 k/mm3 (150-375); Red Blood Count 5.89 M/mm3 (4.2-5.4); Red Cell Distribution Width 14.1 % (11.5-14.5); White Blood Count 9.3 K/mm3 (4.5-10.0)
[2024-08-04 08:04] LABS: CRP 0.5 mg/dL (<1.0); Creatine Kinase < 20 U/L (30-135); Estimated CRCL calculation 38 ml/min; Estimated Glomerular Filt Rate 53
[2024-08-04 08:18] LABS: Procalcitonin 0.1 ng/mL
[2024-08-04] MEDS: IPRATROPIUM BR 0.02% INH SOLN 0.5 MG/2.5 ML VIAL INHALATION ×3 (09:54→21:26)
[2024-08-04] MEDS: dilTIAZem HCL CD 120 MG CAP.24HR PO (10:30)
[2024-08-04] MEDS: METOPROLOL TARTRATE 50 MG TAB 100 MG PO ×2 (10:30→20:51)
[2024-08-04] MEDS: ROSUVASTATIN 5 MG TABLET BY MOUTH (10:31)
[2024-08-04] MEDS: APIXABAN 5 MG TABLET PO ×2 (10:31→20:51)
[2024-08-04] MEDS: guaiFENesin 12 HR 600 MG TABCR PO ×2 (10:31→20:51)
--- NOTE | 2024-08-04 10:33 | PCNWS ---
Weekly nutritional screen. Patient is tolerating current heart healthy diet with adequate intake 75-100%. No weight loss reported. No nutritional recommendations at this time.
[2024-08-04 11:17] LABS: MRSA (PCR) NOT DETECTED (NOT DETECTE)
--- NOTE | 2024-08-04 11:41 | PM.PNPUL ---
Progress Note: A&P Assessment and Plan (1) Influenza A: Code(s): J10.1 - Influenza due to other identified influenza virus with other respiratory manifestations Status: Acute Assessment and Plan: 08/04/23: overall the patient tells me she has a little bit better. She is afebrile. White blood cell count 9.3. Creatinine 1.0. Patient is afebrile. CRP is 0.5. Procalcitonin 0.1. Currently she is on 7 L nasal cannula oxygen with saturations 95%. Chest x-ray today shows an enlarged left lower lobe consolidation consistent with effusion and/or atelectasis. Later in the day CT scan of the chest showed a small left pleural effusion with left lower lobe consolidation with air bronchograms. Plan: Agree with treatment for influenza a pneumonia. Currently she is on day 4 of Tamiflu. She is now off systemic steroids. She was empirically started on vancomycin and ceftriaxone on 08/03/2024 and would continue for now. Goal saturation 90-94%. The patient tells me she improves with levalbuterol and ipratropium nebulizers q.6 hours and will continue. Continue guaifenesin 600 mg p.o. q.12 hours. Continue incentive spirometry and Cornet flutter valve. Discussed with Dr. Merrill, will follow with you. (2) Hypoxia: Code(s): R09.02 - Hypoxemia Status: Acute Assessment and Plan: At baseline she had dyspnea on exertion and required 2 L oxygen at night and none with rest or with activity. 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 plan: Suspect her current hypoxemia is related to influenza pneumonia with a small left pleural effusion and consolidation in the left lower lobe. Continue treatment as above. Subjective Date/time seen: 08/04/24 11:41 Interval history: Aug 03, 2024 at 22:00 Room 331 NEW: Jing Garcias is 83 years old, admitted with influenza and acute hypoxic respiratory failure. Last office visit w Dr Ramesh was 06/06/23; restrictive impairment with need for O2 2 L w exertion. She did not require a follow up appointment. She never gets a flu vaccination. She was admitted with increased shortness of breath, PCR (+) for influenza A and acute hypercapnic respiratory failure. She feels better now compared to admission. She was started on Tamiflu 75 mg p.o. q.12 hours and IV Solu-Medrol which was discontinued today. She had rapid atrial fibrillation, was treated with diltiazem. She initially required 15 liters/minute, the amount fluctuated on the initial admission date July 31, was down to 7 or 8 L a minute, now stable at 8 L for the last 2 - 3 days. 08/04/23: overall the patient tells me she has a little bit better. She is afebrile. White blood cell count 9.3. Creatinine 1.0. Patient is afebrile. CRP is 0.5. Procalcitonin 0.1. Currently she is on 7 L nasal cannula oxygen with saturations 95%. Chest x-ray today shows an enlarged left lower lobe consolidation consistent with effusion and/or atelectasis. DATA * MRSA swab negative, influenza A positive, all other PCR are negative, influenza B, RSV, SARS-CoV-2. * 08/03/2024 sodium 137, potassium 4.3, chloride 93, HC03 greater than 40, BUN 60, initially was 31, increased over the next 3 days there was 60, creatinine 0.7 * 07/31/24; ABG; pH 7.42, pCO2 53.3, pO2 73.4, HC03 34.1, saturation 94.8 on high-flow 8 L * 08/02/24 : Impression: Small left pleural effusion with left basilar and left perihilar airspace disease. Correlate for atelectasis/edema versus pneumonia. * 07/30/24 : Central congestive change with probable minimal bibasilar pulmonary edema/atelectatic change. 03/02/2023: This is a pulmonary function test with pre and post-bronchodilator spirometry, plethysmography and diffusing capacity.? The test was performed and results interpreted in accordance with the 2019 and 2005 ATS/ERS Task Force guidelines respectively using the Global Lung Function Initiative-2012 reference equations. Patient demonstrated good effort and cooperation. Reproducibility criteria were met. The quality of the pre bronchodilator spirometry maneuver was Grade A and post bronchodilator spirometry maneuver was Grade A.? I spoke with the wildlife biology technician and the patient required coaching to complete the spirometry and the remainder of the test the patient did well and there were no technical issues measuring the lung volumes. Findings: Spirometry:? The contour the inspiratory and expiratory flow tracing are normal.? The pre bronchodilator FVC is 1.46 L, 56% predicted.? The pre bronchodilator FEV1 is 1.03 L, 52% predicted.? The pre bronchodilator FEV1: FVC ratio 70%.? The post bronchodilator FVC is 1.31 L, representing an 11% decrease.? The post bronchodilator FEV1 is 1.00 L, representing a 3% decrease.? The post bronchodilator FEV1: FVC ratio 76%.? Plethysmography:? The total lung capacity 7.08 L, 136% predicted.? The functional residual capacity is 5.89 L, 196% predicted.? The residual volume is 5.61 L, 228% predicted.? Diffusing capacity:? The diffusing capacity unadjusted for hemoglobin and carboxyhemoglobin is 12.5, 63% predicted.? The diffusing capacity adjusted for alveolar volume is 5.71, 140% predicted.? In comparison to previous pulmonary function testing on 03/23/2021 the post bronchodilator FVC is unchanged from 1.51 L to 1.31 L.? The post bronchodilator FEV1 is decreased from 1.18 L to 1.00 L.? The total lung capacity has increased from 3.44 L to 7.08 L.? The functional residual capacity is increased from 2.16 L to 5.89 L.? The residual volume has increased from 1.90 L to 5.61 L.? The diffusing capacity unadjusted for hemoglobin and carboxyhemoglobin is unchanged from 12.3 to 12.5.? The diffusing capacity adjusted for alveolar volume is unchanged from 5.26 to 5.71. Impression: The spirometry is normal without evidence of an obstructive abnormality. The lung volumes are increased without evidence of a restrictive abnormality. ? The FVC and FEV1 are moderately severely decreased without an obstructive or restrictive abnormality.? This is an abnormal but nonspecific finding.? There is no significant improvement after inhaling a single dose of albuterol.? The total lung capacity, functional residual capacity and residual volume are increased with an increased residual volume: TLC ratio.? This is consistent with hyperinflation. The diffusing capacity unadjusted for hemoglobin and carboxyhemoglobin is mildly decreased and increased when adjusted for alveolar volume.? In comparison to previous pulmonary function testing on 03/23/2021 there has been a greater than anticipated time dependent increase in the total lung capacity, residual volume and functional residual capacity with a greater than anticipated time dependent decrease in the FEV1 with no significant change in the FVC or diffusing capacity.? Clinical correlation is recommended. 03/02/23: The patient has no obstructive abnormality and no restrictive abnormality with hyperinflation that has increased since 03/23/2021. This is a 6 minute walk test using walking aid. Resting room air oxygen saturation measured by pulse oximetry was 94% and heart rate was 64 bpm.? Patient ambulated for 122 meters and oxygen saturation remained 90 to 93%.? Heart rate at the end of the study was 88 bpm. The patient did not qualify for supplemental oxygen at rest or with ambulation. 02/16/2023: Overnight oximetry on 2 L nasal cannula. Recording duration was 1 hour and 34 minutes basal saturation 93.4%. High saturation 98%. Low saturation 89%. Time with saturation less than or equal to 88% was 0 minutes. Oxygen desaturation index is 10. Continue 2 L nasal cannula at night. HPI Comments 02/02/2023:? This is a follow-up encounter from 10/28/2021 for MAHER and nocturnal hypoxemia. On 10/28/2021:? Patient with MAHER and nocturnal hypoxemia. She is a nonsmoker with no occupational exposures. Patient has no rest SOB and she also requires no oxygen at rest but 2 L with ambulation per home O2 assessment on 03/23/2021. She has a moderately severe restrictive abnormality with a total lung capacity of 67% predicted. She has a CT scan of the chest that demonstrates severe thoracic spondylosis and some kyphosis with no emphysematous or interstitial lung disease. I believed her MAHER and hypoxemia is related to her restrictive lung disease with evidence of kyphosis on her CT scan but no evidence of interstitial lung disease. I suspect there also is a component of deconditioning for her MAHER. Patient has minimal respiratory limitations in her activities of daily living at this time and is currently walking 3/4 to 1 mile 5 days a week and this takes her 45 minutes without oxygen. She has pleased with this progress. Portable oxygen concentrator process was initiated. At this time there is no specific pulmonary follow-up needed. Please refer the patient to us should she have any new issues. 08/11/2022:? Cardiology outpatient visit states some SOB but able to walk outside 1/4 mi or so with only stopping once.? Thinks she might need to see pulmonary again.? Wears O2 at night and naps. 12/15/2022:? Cardiology, Dr. Vazquez, she is still SOB with stairs, ADLs like running vacuum about the same from last visit.? O2 saturation 92% room air at rest.? Complaints of SOB stable.? She does not appear to be in decompensated heart failure.? At rest 93% on room air after 1 lap = 95%.? Two laps = 90%, 3 laps = 90%.? Patient does not qualify for supplemental oxygen with ambulation although she is mildly hypoxic.? I have strongly encouraged her to contact her blanching machine operator again to be seen as soon as possible for further recommendations and management in this regard. This appears to be the explanation of her symptoms in the absence of decompensated heart failure.? Her echo is not suggestive of significant valvular heart disease.? Her AFib is persistent with a reasonably controlled ventricular response.? Patient verbalized understanding. DATA: EXAMINATION:CT diagnostic chest wo con DATE: 04/03/2021 12:41 INDICATION: Other disorders of lung. COMPARISON: Chest CT 03/20/2019, 06/18/2016 FINDINGS: There is mild emphysema. There is mild bronchiectasis in right middle lobe and lingula. A calcified right lung nodule and calcified right hilar and mediastinal lymph nodes are consistent with old granulomatous disease. There is mild atelectasis in the inferior lungs. There is an 8 mm nodule in right lower lobe without change, likely benign. No pleural effusion. The heart size is normal. There are coronary artery calcifications. No pericardial effusion. Calcifications in the spleen are consistent with old granulomatous disease. There are changes of cholecystectomy. 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 There is lucency around the glenoid component with subsidence, consistent with loosening. There is severe thoracic spondylosis. There are changes of vertebroplasty at L1. IMPRESSION: 1. Mild emphysema. 2. 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 03/23/21 PFTs ? This is a pulmonary function test with pre and post-bronchodilator spirometry, plethysmography and diffusing capacity. The test was performed and results interpreted in accordance with the 2019 and 2005 ATS/ERS Task Force guidelines respectively using the Global Lung Function Initiative-2012 reference equations. Patient demonstrated good effort and cooperation. Reproducibility criteria were met. The quality of the pre bronchodilator spirometry maneuver was Grade A and post bronchodilator spirometry maneuver was Grade A. Findings: Spirometry:? The contour of the expiratory flow tracing is that of a witch's hat.? The contour the inspiratory flow tracing is normal.? The pre bronchodilator FVC is 1.54 L, 54% predicted.? The pre bronchodilator FEV1 is 1.13 L, 57% predicted.? The FEV1: FVC ratio 73%.? The post bronchodilator FVC is 1.51 L, representing a 2% decrease.? The post bronchodilator FEV1 is 1.18 L, representing a 5% decrease. Plethysmography:? The total lung capacity is 3.44 L, 67% predicted.? The functional residual capacity is 2.16 L, 76% predicted.? The residual volume is 1.90 L, 87% predicted. Diffusing capacity:? The absolute diffusion capacity is 12.3, 60% predicted.? The diffusing capacity corrected for alveolar volume is 5.26, 157% predicted. Impression: There is a moderately severe restrictive ventilatory abnormality. The spirometry is normal without evidence of an obstructive abnormality. There is no significant improvement after inhaling a single dose of albuterol. The ? Absolute diffusion capacity is normal and increased when corrected for alveolar volume. There are no prior studies for comparison 03/03/2021: Patient had an overnight oximetry on room air that demonstrated a basal saturation of 90.3%.? High saturation 98.0%.? Low saturation 76.0%.? Time with saturation less than or equal to 88% was 63.7 minutes.? I will prescribe 2 L nasal cannula oxygen at night and repeat an overnight oximetry on 2 L nasal cannula. Review of Systems Constitutional: Constitutional: Reports no additional constitutional complaints Eyes: Eyes: Reports no additional eye complaints ENT: Reports system reviewed and no additional complaints, except as documented Cardiovascular: Cardiovascular: Reports no additional cardiovascular complaints Respiratory: Respiratory: Reports no additional respiratory complaints Gastrointestinal: Gastrointestinal: Reports no additional gastrointestinal complaints Musculoskeletal: Musculoskeletal: Reports no additional musculoskeletal complaints Neurologic: Reports system reviewed and no additional complaints, except as documented Psychiatric: Psychiatric: Reports no additional psychiatric complaints Endocrine: Endocrine: Reports no additional endocrine complaints Hematologic/Lymphatic: Hematologic/Lymphatic: Reports no additional hematologic/lymphatic complaints Allergic/Immunologic: Allergic/Immunologic: Reports no additional allergic/immunologic complaints Exam Const: General: cooperative, healthy appearing and comfortable Orientation/consciousness: oriented to person, oriented to place and oriented to time HENMT: Head: normal to inspection Ears: hearing grossly normal bilaterally Eyes: General: appearance normal, both eyes and all related structures Neck: Neck: normal visual inspection Chest: Chest palpation & inspection: normal inspection of the chest Resp: Effort & Inspection: normal respiratory effort and able to speak in complete sentences Auscultation: no crackles, no rales, no rhonchi, no wheezes and lung sounds not diminished Cardio: Jugular venous distension: no JVD GI: Inspection: normal to inspection GI Palp: No abdominal tenderness Skin: General skin exam: normal color Neuro: General: oriented to person, oriented to place and oriented to time Extrem: General: normal to inspection Psych: Appearance: grossly normal Objective Data Vital Signs Vital Signs: Vital Signs - 24 hr 08/03/24 12:00 08/03/24 14:00 08/03/24 15:00 Temperature 36.1 C L Pulse Rate 85 85 Respiratory Rate 17 Blood Pressure 139/66 Pulse Oximetry 97 96 Oxygen Delivery High Flow Nasal Cannula Oxygen Flow Rate 7 08/03/24 16:00 08/03/24 20:00 08/03/24 20:00 Temperature Pulse Rate 85 101 H Respiratory Rate Blood Pressure Pulse Oximetry 93 Oxygen Delivery High Flow Nasal Cannula Oxygen Flow Rate 7 08/03/24 20:59 08/03/24 21:02 08/03/24 21:02 Temperature Pulse Rate 92 92 103 H Respiratory Rate 19 Blood Pressure Pulse Oximetry 93 Oxygen Delivery High Flow Nasal Cannula Oxygen Flow Rate 7 08/03/24 21:11 08/03/24 22:00 08/04/24 00:00 Temperature 36.9 C Pulse Rate 93 90 75 Respiratory Rate 20 20 Blood Pressure 140/77 Pulse Oximetry 98 Oxygen Delivery Oxygen Flow Rate 08/04/24 04:00 08/04/24 06:00 08/04/24 08:02 Temperature 36.5 C Pulse Rate 67 89 81 Respiratory Rate 20 Blood Pressure 132/70 Pulse Oximetry 95 Oxygen Delivery Oxygen Flow Rate 08/04/24 09:55 08/04/24 09:55 08/04/24 10:15 Temperature Pulse Rate 88 105 H Respiratory Rate 20 20 Blood Pressure Pulse Oximetry 91 Oxygen Delivery High Flow Nasal Cannula Oxygen Flow Rate 7 Intake/Output Intake/Output: Intake & Output 08/01/24 08/02/24 08/03/24 08/04/24 23:59 23:59 23:59 23:59 Intake Total 1403 1310 1715 590 Output Total 1175 250 500 300 Balance 228 1060 1215 290 Meds/Results Medications: Active Medications Generic Name Dose Route Start Last Admin Trade Name Freq PRN Reason Stop Dose Admin Acetaminophen 650 mg 07/30/24 16:59 Acetaminophen 325 Mg Tablet PO Q4H PRN Mild Pain (1-3) or Fever Hydrocodone Bitart/Acetaminophen 1 tab 07/30/24 16:59 Hydrocodone/Acetaminophen (*Crx) 5-325 Mg Tablet PO Q4H PRN Pain Rated 4-6 Apixaban 5 mg 07/31/24 21:00 08/04/24 10:31 Apixaban 5 Mg Tablet PO 5 mg Q12HR PERFECTO Administration Carbidopa/Levodopa 2 tablet 07/31/24 06:00 08/04/24 05:52 Carbidopa/Levodopa 25/100 Mg Tablet BY MOUTH 2 tablet 0600,1200 PERFECTO Administration Carbidopa/Levodopa 1 tablet 07/30/24 22:55 08/03/24 21:01 Carbidopa/Levodopa 25/100 Mg Tablet BY MOUTH 1 tablet HS PERFECTO Administration Diltiazem HCl 120 mg 08/03/24 12:00 08/04/24 10:30 Diltiazem Hcl Cd 120 Mg Cap.24hr PO 120 mg QAM PERFECTO Administration Guaifenesin 600 mg 07/31/24 11:30 08/04/24 10:31 Guaifenesin 12 Hr 600 Mg Tabcr PO 600 mg Q12HR PERFECTO Administration Guaifenesin/Dextromethorphan 10 ml 07/31/24 11:22 Guaifenesin/Dextromethorphan 10 Ml Udc PO Q4HR PRN Cough Ceftriaxone Sodium 2 gm in 100 mls @ 200 mls/hr 08/03/24 18:00 08/03/24 18:49 Rocephin 2 Gm/Ns 100 Ml IVPB Infused Q24H PERFECTO Infusion Vancomycin HCl 1,250 mg in 250 mls @ 166.667 mls/hr 08/05/24 08:00 Vancomycin 1,250 Mg/Ns 250 Ml IVPB Q36H PERFECTO Ipratropium Paulina 0.5 mg 07/31/24 14:00 08/04/24 09:54 Ipratropium Br 0.02% Inh Soln 0.5 Mg/2.5 Ml Vial INHALATION 0.5 mg Q6HRT PERFECTO Administration Levalbuterol HCl 1.25 mg 07/31/24 14:00 08/04/24 09:55 Levalbuterol Neb 1.25 Mg/3 Ml INHALATION 1.25 mg Q6HRT PERFECTO Administration Levothyroxine Sodium 112 mcg 07/31/24 06:30 08/04/24 05:43 Levothyroxine Sodium 112 Mcg Tablet PO 112 mcg DAILY@0630 EPRFECTO Administration Metoprolol Tartrate 100 mg 07/30/24 22:50 08/04/24 10:30 Metoprolol Tartrate 50 Mg Tab PO 100 mg Q12HR PERFECTO Administration Ondansetron HCl 4 mg 07/30/24 16:59 Ondansetron Inj 4 Mg/2 Ml Vial IV PUSH Q4H PRN Nausea Oseltamivir Phosphate 75 mg 07/31/24 06:00 08/04/24 05:43 Oseltamivir Phosphate 75 Mg Capsule PO 08/05/24 05:59 75 mg Q12H PERFECTO Administration Polyethylene Glycol 17 gm 08/01/24 14:14 08/01/24 14:26 Polyethylene Glycol 3350 17 Gm Powd.Pack PO 17 gm QAM PRN Administration Constipation Rosuvastatin Calcium 5 mg 07/31/24 09:00 08/04/24 10:31 Rosuvastatin 5 Mg Tablet BY MOUTH 5 mg DAILY PERFECTO Administration Radiology Results: ITS Impressions Chest X-Ray 08/04/24 08:36 IMPRESSION: Left mid and bilateral lower lung infiltrates Moderate left pleural effusion, increased since 08/2024 Cardiomegaly, aortic atherosclerosis Labs Labs: Laboratory Results - last 24 hr 08/03/24 08/03/24 08/04/24 18:19 18:28 07:26 WBC 9.3 RBC 5.89 H Hgb 17.1 H Hct 54.2 H MCV 92.0 MCH 29.0 MCHC 31.5 L RDW 14.1 Plt Count 215 MPV 10.2 Immature Gran % (Auto) 0.3 Neut % (Auto) 89.5 H Lymph % (Auto) 4.3 L [place] % (Auto) 5.8 Eos % (Auto) 0.0 Baso % (Auto) 0.1 L Lymph # (Auto) 0.40 L [place] # (Auto) 0.5 Eos # (Auto) 0.0 Baso # (Auto) 0.0 Abs Immat Gran (auto) 0.03 Absolute Neuts (auto) 8.3 H Absolute Nucleated RBC 0.000 Nucleated RBC % 0.0 Sodium 137 Potassium 4.3 Chloride 93 L Carbon Dioxide > 40 H Anion Gap BUN 60 H D Creatinine 0.70 1.00 Estim Creat Clear Calc 52 38 Estimated GFR > 60 53 L Glucose 242 H Calcium 9.2 Total Creatine Kinase < 20 L C-Reactive Protein 0.5 Procalcitonin 0.1 Nasal MRSA (PCR) Not detected 08/04/24 09:48 WBC RBC Hgb Hct MCV MCH MCHC RDW Plt Count MPV Immature Gran % (Auto) Neut % (Auto) Lymph % (Auto) [place] % (Auto) Eos % (Auto) Baso % (Auto) Lymph # (Auto) [place] # (Auto) Eos # (Auto) Baso # (Auto) Abs Immat Gran (auto) Absolute Neuts (auto) Absolute Nucleated RBC Nucleated RBC % Sodium Potassium Chloride Carbon Dioxide Anion Gap BUN Creatinine Estim Creat Clear Calc Estimated GFR Glucose Calcium Total Creatine Kinase C-Reactive Protein Procalcitonin Nasal MRSA (PCR) Not detected
--- NOTE | 2024-08-04 13:48 | PM.IMPN ---
Progress Note: A&P Assessment and Plan (1) Influenza A: Code(s): J10.1 - Influenza due to other identified influenza virus with other respiratory manifestations Status: Acute (2) CHF exacerbation: Code(s): I50.9 - Heart failure, unspecified Status: Acute (3) Acute respiratory distress: Code(s): R06.03 - Acute respiratory distress Status: Inactive (4) Atrial fibrillation: Qualifiers: Atrial fibrillation type: unspecified Qualified Code(s): I48.91 - Unspecified atrial fibrillation Code(s): I48.91 - Unspecified atrial fibrillation Status: Acute (5) Hyperlipidemia: Qualifiers: Hyperlipidemia type: mixed hyperlipidemia Qualified Code(s): E78.2 - Mixed hyperlipidemia Code(s): E78.5 - Hyperlipidemia, unspecified Status: Acute (6) Essential hypertension: Code(s): I10 - Essential (primary) hypertension Status: Acute (7) Parkinson's 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, without mention of fluctuations: Qualifiers: Fluctuating manifestations: without fluctuating manifestations Qualified Code(s): G20.A1 - Parkinson's 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, without mention of fluctuations Code(s): G20.A1 - Parkinson's 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, without mention of fluctuations Status: Acute Plan This is an 83-year-old female presents to the ED with increased generalized weakness fatigue and went to urgent care where she was found to be hypoxic. She also reported cough. On the ED evaluation she was hypoxic 84% on room air was placed on 4 L oxygen via nasal cannula mildly tachycardic. AFib on EKG. Laboratory data showed normal WBC 7.8 hemoglobin of 15.4 platelet 186 Chem panel was unremarkable. BNP was elevated at 3840. Influenza RSV COVID swab tested positive for influenza A. Chest x-ray showed mild pulmonary vascular congestion with small bilateral pleural effusion and adjacent compressive atelectasis. Patient on chronic anticoagulation with apixaban. Patient admitted started on Tamiflu for influenza a. Will check procalcitonin Also treated for acute congestive heart failure. No prior diagnosis of congestive heart failure the she has been worked up for dyspnea on exertion in the past. Cardiology consulted. Echo ordered. IV Lasix b.i.d. repeat E chest x-ray with improved congestion. Because of atrial fibrillation will change DuoNeb to Xopenex and ipratropium. Droplet isolation to continue. Last echo 2021 with EF 70% trace TR RVSP 37 mild LVH Atrial fibrillation with rapid ventricular rate cardiology on board changed to Xopenex continue home metoprolol and Eliquis Hypertension Hyperlipidemia Parkinson's disease Sleep apnea uses oxygen at night Restrictive lung disease with kyphosis plans to get a portable oxygen concentrator in the past per pulmonary note and family. Will need home oxygen evaluation at the time of discharge to evaluate this. Hypothyroidism 08/01/24 - Assuming care. Continue Tamiflu for Influenza. Wean O2 as tolerated. She does have underlying O2 requirements but worse now. Encourage IS use. Consider a component of CHF as well. Remains on IV lasix. Echo ordered. Replace potassium to keep above 4.0. PT/OT ordered. Check CXR in the morning 08/02/24 - CXR showing small left pleural effusion with left basliar and left perihilar airspace disease. Continue Tamiflu to complete a course. Continue to encourage being up. Encourage IS use. No wheezing. Will back down on steroids. Switch to oral steroids in 1-2 days. Labs stable. Heart rate better controlled afterIV Digoxin and adding oral diltiazem. Serum bicarb >40 - change to oral Lasix soon? Continue PT/OT. 08/03/24 - Feels better. AFib under control. O2 requirement was better yesterday but still with considerable O2 requirement and not trending as expected. Echo pending. Will stop steroids after today. Lasix stopped 08/02/24. Continue bronchodilators. Continue Tamiflu. Wean O2 as tolerated. Acetazolamide x 1. May benefit from a 10 day course of Tamiflu. No fevers or elevated WBC but consider 2nd bacterial infection. Check sputum and blood cx. Start abx. Consider CT chest 08/04/24 - Some improvement but still requiring 7-8L. Discussed with pulmonary. Plan for 10 days of Tamiflu treatment. MRSA swab negative so will stop Vanco. Steroids stopped on 08/03. CRP 0.5. CXR showing left mid and lower lung infiltrate. CT chest does not show obvious large effusion. Add CPT to try to open up LLL. Probably atelectasis and less likely PNA DVT prophylaxis on Eliquis Code status do not resuscitate Subjective Date/time seen: 08/04/24 13:48 Interval history: 83yo female with restrctive lung disease, HTN and chronic respiratory failure here for dyspnea. She wears 2L O2 with sleep but family feels she needs it more continuously. Feels better. Cough productive of whitish sputum. No CP or SOB. Exam Narrative: AF 97.7 132/70 105 20 91% 8L Gen - NARD sitting up in chair Chest - decreased BS in the bases L>R CV -irregularly irregular. S1-S2. Telemetry showing AFib with controlled rate Abd - Soft, NT/ND, Positive BS Ext - No pedal edema Psych - Nml mood and affect Skin - Warm and dry Objective Data Vital Signs Vital Signs: Vital Signs - 24 hr 08/03/24 14:00 08/03/24 15:00 08/03/24 16:00 Temperature 97 F L Pulse Rate 85 85 Respiratory Rate 17 Blood Pressure 139/66 Pulse Oximetry 97 96 Oxygen Delivery High Flow Nasal Cannula Oxygen Flow Rate 7 08/03/24 20:00 08/03/24 20:00 08/03/24 20:59 Temperature Pulse Rate 101 H 92 Respiratory Rate 19 Blood Pressure Pulse Oximetry 93 Oxygen Delivery High Flow Nasal Cannula Oxygen Flow Rate 7 08/03/24 21:02 08/03/24 21:02 08/03/24 21:11 Temperature Pulse Rate 92 103 H 93 Respiratory Rate 20 Blood Pressure Pulse Oximetry 93 Oxygen Delivery High Flow Nasal Cannula Oxygen Flow Rate 7 08/03/24 22:00 08/04/24 00:00 08/04/24 04:00 Temperature 98.4 F Pulse Rate 90 75 67 Respiratory Rate 20 Blood Pressure 140/77 Pulse Oximetry 98 Oxygen Delivery Oxygen Flow Rate 08/04/24 06:00 08/04/24 08:02 08/04/24 09:55 Temperature 97.7 F Pulse Rate 89 81 Respiratory Rate 20 Blood Pressure 132/70 Pulse Oximetry 95 91 Oxygen Delivery High Flow Nasal Cannula Oxygen Flow Rate 7 08/04/24 09:55 08/04/24 10:15 Temperature Pulse Rate 88 105 H Respiratory Rate 20 20 Blood Pressure Pulse Oximetry Oxygen Delivery Oxygen Flow Rate Intake/Output Intake/Output: Intake & Output 08/01/24 08/02/24 08/03/24 08/04/24 23:59 23:59 23:59 23:59 Intake Total 1403 1310 1715 590 Output Total 1175 250 500 300 Balance 228 1060 1215 290 Meds/Results Medications: Active Medications Generic Name Dose Route Start Last Admin Trade Name Freq PRN Reason Stop Dose Admin Acetaminophen 650 mg 07/30/24 16:59 Acetaminophen 325 Mg Tablet PO Q4H PRN Mild Pain (1-3) or Fever Hydrocodone Bitart/Acetaminophen 1 tab 07/30/24 16:59 Hydrocodone/Acetaminophen (*Crx) 5-325 Mg Tablet PO Q4H PRN Pain Rated 4-6 Apixaban 5 mg 07/31/24 21:00 08/04/24 10:31 Apixaban 5 Mg Tablet PO 5 mg Q12HR PERFECTO Administration Carbidopa/Levodopa 2 tablet 07/31/24 06:00 08/04/24 05:52 Carbidopa/Levodopa 25/100 Mg Tablet BY MOUTH 2 tablet 0600,1200 PERFECTO Administration Carbidopa/Levodopa 1 tablet 07/30/24 22:55 08/03/24 21:01 Carbidopa/Levodopa 25/100 Mg Tablet BY MOUTH 1 tablet HS PERFECTO Administration Diltiazem HCl 120 mg 08/03/24 12:00 08/04/24 10:30 Diltiazem Hcl Cd 120 Mg Cap.24hr PO 120 mg QAM PERFECTO Administration Guaifenesin 600 mg 07/31/24 11:30 08/04/24 10:31 Guaifenesin 12 Hr 600 Mg Tabcr PO 600 mg Q12HR PERFECTO Administration Guaifenesin/Dextromethorphan 10 ml 07/31/24 11:22 Guaifenesin/Dextromethorphan 10 Ml Udc PO Q4HR PRN Cough Ceftriaxone Sodium 2 gm in 100 mls @ 200 mls/hr 08/03/24 18:00 08/03/24 18:49 Rocephin 2 Gm/Ns 100 Ml IVPB Infused Q24H PERFECTO Infusion Vancomycin HCl 1,250 mg in 250 mls @ 166.667 mls/hr 08/05/24 08:00 Vancomycin 1,250 Mg/Ns 250 Ml IVPB Q36H PERFECTO Ipratropium [place] 0.5 mg 07/31/24 14:00 08/04/24 09:54 Ipratropium Br 0.02% Inh Soln 0.5 Mg/2.5 Ml Vial INHALATION 0.5 mg Q6HRT PERFECTO Administration Levalbuterol HCl 1.25 mg 07/31/24 14:00 08/04/24 09:55 Levalbuterol Neb 1.25 Mg/3 Ml INHALATION 1.25 mg Q6HRT PERFECTO Administration Levothyroxine Sodium 112 mcg 07/31/24 06:30 08/04/24 05:43 Levothyroxine Sodium 112 Mcg Tablet PO 112 mcg DAILY@0630 PERFECTO Administration Metoprolol Tartrate 100 mg 07/30/24 22:50 08/04/24 10:30 Metoprolol Tartrate 50 Mg Tab PO 100 mg Q12HR PERFECTO Administration Ondansetron HCl 4 mg 07/30/24 16:59 Ondansetron Inj 4 Mg/2 Ml Vial IV PUSH Q4H PRN Nausea Oseltamivir Phosphate 75 mg 07/31/24 06:00 08/04/24 05:43 Oseltamivir Phosphate 75 Mg Capsule PO 08/05/24 05:59 75 mg Q12H PERFECTO Administration Polyethylene Glycol 17 gm 08/01/24 14:14 08/01/24 14:26 Polyethylene Glycol 3350 17 Gm Powd.Pack PO 17 gm QAM PRN Administration Constipation Rosuvastatin Calcium 5 mg 07/31/24 09:00 08/04/24 10:31 Rosuvastatin 5 Mg Tablet BY MOUTH 5 mg DAILY PERFECTO Administration Radiology Results: ITS Impressions Chest X-Ray 08/04/24 08:36 IMPRESSION: Left mid and bilateral lower lung infiltrates Moderate left pleural effusion, increased since 08/2024 Cardiomegaly, aortic atherosclerosis Labs Labs: Laboratory Results - last 24 hr 08/03/24 08/03/24 08/04/24 18:19 18:28 07:26 WBC 9.3 RBC 5.89 H Hgb 17.1 H Hct 54.2 H MCV 92.0 MCH 29.0 MCHC 31.5 L RDW 14.1 Plt Count 215 MPV 10.2 Immature Gran % (Auto) 0.3 Neut % (Auto) 89.5 H Lymph % (Auto) 4.3 L Humphre[place] % (Auto) 5.8 Eos % (Auto) 0.0 Baso % (Auto) 0.1 L Lymph # (Auto) 0.40 L [place] # (Auto) 0.5 Eos # (Auto) 0.0 Baso # (Auto) 0.0 Abs Immat Gran (auto) 0.03 Absolute Neuts (auto) 8.3 H Absolute Nucleated RBC 0.000 Nucleated RBC % 0.0 Sodium 137 Potassium 4.3 Chloride 93 L Carbon Dioxide > 40 H Anion Gap BUN 60 H D Creatinine 0.70 1.00 Estim Creat Clear Calc 52 38 Estimated GFR > 60 53 L Glucose 242 H Calcium 9.2 Total Creatine Kinase < 20 L C-Reactive Protein 0.5 Procalcitonin 0.1 Nasal MRSA (PCR) Not detected 08/04/24 09:48 WBC RBC Hgb Hct MCV MCH MCHC RDW Plt Count MPV Immature Gran % (Auto) Neut % (Auto) Lymph % (Auto) Humphre[place] % (Auto) Eos % (Auto) Baso % (Auto) Lymph # (Auto) Humphreys # (Auto) Eos # (Auto) Baso # (Auto) Abs Immat Gran (auto) Absolute Neuts (auto) Absolute Nucleated RBC Nucleated RBC % Sodium Potassium Chloride Carbon Dioxide Anion Gap BUN Creatinine Estim Creat Clear Calc Estimated GFR Glucose Calcium Total Creatine Kinase C-Reactive Protein Procalcitonin Nasal MRSA (PCR) Not detected
--- NOTE | 2024-08-04 14:31 | PCPTNOTE ---
Patient very fatigued this date and unable to be awakened enough to participate in therapy this date.
[2024-08-04] MEDS: cefTRIAXone 2 GM/NS 100 ML 2 GM/100 ML BAG IVPB (17:26)
[2024-08-04] MEDS: CARBIDOPA/LEVODOPA 25/100 MG TABLET 1 TABLET BY MOUTH (20:51)
[2024-08-04] MEDS: OSELTAMIVIR PHOSPHATE 30 MG CAPSULE PO (20:51)
[2024-08-05] VITALS (18 sets, daily range): BP systolic 134–152; BP diastolic 78–85; PULSE 78–124; RESP 16–20; TEMP 35.9–36.7; O2SAT 90–95
[2024-08-05] MEDS: IPRATROPIUM BR 0.02% INH SOLN 0.5 MG/2.5 ML VIAL INHALATION ×3 (03:05→14:36)
[2024-08-05] MEDS: LEVALBUTEROL NEB 1.25 MG/3 ML INHALATION ×4 (03:05→22:26)
[2024-08-05] MEDS: LEVOTHYROXINE SODIUM 112 MCG TABLET PO (05:58)
[2024-08-05] MEDS: CARBIDOPA/LEVODOPA 25/100 MG TABLET 2 TABLET BY MOUTH ×2 (05:59→12:47)
[2024-08-05] MEDS: METOPROLOL TARTRATE 50 MG TAB 100 MG PO ×2 (10:12→20:00)
[2024-08-05] MEDS: dilTIAZem HCL CD 120 MG CAP.24HR PO (10:15)
[2024-08-05] MEDS: ROSUVASTATIN 5 MG TABLET BY MOUTH (10:15)
[2024-08-05] MEDS: APIXABAN 5 MG TABLET PO ×2 (10:15→20:00)
[2024-08-05] MEDS: OSELTAMIVIR PHOSPHATE 30 MG CAPSULE PO ×2 (10:16→20:00)
[2024-08-05] MEDS: guaiFENesin 12 HR 600 MG TABCR PO (10:16)
--- NOTE | 2024-08-05 10:32 | P.PNPL_ITS ---
Progress Note: A&P Assessment and Plan (1) Influenza A: Code(s): J10.1 - Influenza due to other identified influenza virus with other respiratory manifestations Status: Acute Assessment and Plan: 08/04/23: overall the patient tells me she has a little bit better. She is afebrile. White blood cell count 9.3. Creatinine 1.0. Patient is afebrile. CRP is 0.5. Procalcitonin 0.1. Currently she is on 7 L nasal cannula oxygen with saturations 95%. Chest x-ray today shows an enlarged left lower lobe consolidation consistent with effusion and/or atelectasis. Later in the day CT scan of the chest showed a small left pleural effusion with left lower lobe consolidation with air bronchograms. Plan: Agree with treatment for influenza a pneumonia. Currently she is on day 4 of Tamiflu. She is now off systemic steroids. She was empirically started on vancomycin and ceftriaxone on 08/03/2024 and would continue for now. Goal saturation 90-94%. The patient tells me she improves with levalbuterol and ipratropium nebulizers q.6 hours and will continue. Continue guaifenesin 600 mg p.o. q.12 hours. Continue incentive spirometry and Cornet flutter valve. 08/05/24: Overall the patient states she has a little bit better. She has a moist cough but is unable to bring up any phlegm. Currently she is on 7 L nasal cannula saturations 90%. She is afebrile, creatinine is 1.0. Plan: continue Tamiflu, day 5. Recommend treating for 10 days. MRSA swab negative, vancomycin discontinued. Continue ceftriaxone, day 3. Continue levalbuterol and ipratropium nebulizers q.6 and guaifenesin will increase to 1200 mg twice a day. Discussed with Dr. Merrill, will follow with you. (2) Hypoxia: Code(s): R09.02 - Hypoxemia Status: Acute Assessment and Plan: At baseline she had dyspnea on exertion and required 2 L oxygen at night and none with rest or with activity. 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 plan: Patient currently on 7 L nasal cannula. Suspect her current hypoxemia is related to influenza pneumonia with a small left pleural effusion and consolidation in the left lower lobe. Continue treatment as above. 08/05/2024: Currently she is on 7 L nasal cannula saturations 90%. Plan: Treatment for influenza pneumonia as above. Will continue Cornet flutter valve. Will add EzPAP. Out of bed to chair as tolerated. Subjective Date/time seen: 08/05/24 10:32 Interval history: Aug 03, 2024 at 22:00 Room 331 NEW: Jing Garcias is 83 years old, admitted with influenza and acute hypoxic respiratory failure. Last office visit w Dr Ramesh was 06/06/23; restrictive impairment with need for O2 2 L w exertion. She did not require a follow up appointment. She never gets a flu vaccination. She was admitted with increased shortness of breath, PCR (+) for influenza A and acute hypercapnic respiratory failure. She feels better now compared to admission. She was started on Tamiflu 75 mg p.o. q.12 hours and IV Solu-Medrol which was discontinued today. She had rapid atrial fibrillation, was treated with diltiazem. She initially required 15 liters/minute, the amount fluctuated on the initial admission date July 31, was down to 7 or 8 L a minute, now stable at 8 L for the last 2 - 3 days. 08/04/23: overall the patient tells me she has a little bit better. She is afebrile. White blood cell count 9.3. Creatinine 1.0. Patient is afebrile. CRP is 0.5. Procalcitonin 0.1. Currently she is on 7 L nasal cannula oxygen with saturations 95%. Chest x-ray today shows an enlarged left lower lobe consolidation consistent with effusion and/or atelectasis. 08/05/24: Overall the patient states she has a little bit better. She has a moist cough but is unable to bring up any phlegm. Currently she is on 7 L nasal cannula saturations 90%. She is afebrile, creatinine is 1.0. DATA * MRSA swab negative, influenza A positive, all other PCR are negative, influenza B, RSV, SARS-CoV-2. * 08/03/2024 sodium 137, potassium 4.3, chloride 93, HC03 greater than 40, BUN 60, initially was 31, increased over the next 3 days there was 60, creatinine 0.7 * 07/31/24; ABG; pH 7.42, pCO2 53.3, pO2 73.4, HC03 34.1, saturation 94.8 on high-flow 8 L * 08/02/24 : Impression: Small left pleural effusion with left basilar and left perihilar airspace disease. Correlate for atelectasis/edema versus pneumonia. * 07/30/24 : Central congestive change with probable minimal bibasilar pulmonary edema/atelectatic change. 03/02/2023: This is a pulmonary function test with pre and post-bronchodilator spirometry, plethysmography and diffusing capacity.? The test was performed and results interpreted in accordance with the 2019 and 2005 ATS/ERS Task Force guidelines respectively using the Global Lung Function Initiative-2012 reference equations. Patient demonstrated good effort and cooperation. Reproducibility criteria were met. The quality of the pre bronchodilator spirometry maneuver was Grade A and post bronchodilator spirometry maneuver was Grade A.? I spoke with the certified technician and the patient required coaching to complete the spirometry and the remainder of the test the patient did well and there were no technical issues measuring the lung volumes. Findings: Spirometry:? The contour the inspiratory and expiratory flow tracing are normal.? The pre bronchodilator FVC is 1.46 L, 56% predicted.? The pre bronchodilator FEV1 is 1.03 L, 52% predicted.? The pre bronchodilator FEV1: FVC ratio 70%.? The post bronchodilator FVC is 1.31 L, representing an 11% decrease.? The post bronchodilator FEV1 is 1.00 L, representing a 3% decrease.? The post bronchodilator FEV1: FVC ratio 76%.? Plethysmography:? The total lung capacity 7.08 L, 136% predicted.? The functional residual capacity is 5.89 L, 196% predicted.? The residual volume is 5.61 L, 228% predicted.? Diffusing capacity:? The diffusing capacity unadjusted for hemoglobin and carboxyhemoglobin is 12.5, 63% predicted.? The diffusing capacity adjusted for alveolar volume is 5.71, 140% predicted.? In comparison to previous pulmonary function testing on 03/23/2021 the post bronchodilator FVC is unchanged from 1.51 L to 1.31 L.? The post bronchodilator FEV1 is decreased from 1.18 L to 1.00 L.? The total lung capacity has increased from 3.44 L to 7.08 L.? The functional residual capacity is increased from 2.16 L to 5.89 L.? The residual volume has increased from 1.90 L to 5.61 L.? The diffusing capacity unadjusted for hemoglobin and carboxyhemoglobin is unchanged from 12.3 to 12.5.? The diffusing capacity adjusted for alveolar volume is unchanged from 5.26 to 5.71. Impression: The spirometry is normal without evidence of an obstructive abnormality. The lung volumes are increased without evidence of a restrictive abnormality. ? The FVC and FEV1 are moderately severely decreased without an obstructive or restrictive abnormality.? This is an abnormal but nonspecific finding.? There is no significant improvement after inhaling a single dose of albuterol.? The total lung capacity, functional residual capacity and residual volume are increased with an increased residual volume: TLC ratio.? This is consistent with hyperinflation. The diffusing capacity unadjusted for hemoglobin and carboxyhemoglobin is mildly decreased and increased when adjusted for alveolar volume.? In comparison to previous pulmonary function testing on 03/23/2021 there has been a greater than anticipated time dependent increase in the total lung capacity, residual volume and functional residual capacity with a greater than anticipated time dependent decrease in the FEV1 with no significant change in the FVC or diffusing capacity.? Clinical correlation is recommended. 03/02/23: The patient has no obstructive abnormality and no restrictive abnormality with hyperinflation that has increased since 03/23/2021. This is a 6 minute walk test using walking aid. Resting room air oxygen saturation measured by pulse oximetry was 94% and heart rate was 64 bpm.? P atient ambulated for 122 meters and oxygen saturation remained 90 to 93%.? Heart rate at the end of the study was 88 bpm. The patient did not qualify for supplemental oxygen at rest or with ambulation. 02/16/2023: Overnight oximetry on 2 L nasal cannula. Recording duration was 1 hour and 34 minutes basal saturation 93.4%. High saturation 98%. Low saturation 89%. Time with saturation less than or equal to 88% was 0 minutes. Oxygen desaturation index is 10. Continue 2 L nasal cannula at night. 02/02/2023:? This is a follow-up encounter from 10/28/2021 for MAHER and nocturnal hypoxemia. On 10/28/2021:? Patient with MAHER and nocturnal hypoxemia. She is a nonsmoker with no occupational exposures. Patient has no rest SOB and she also requires no oxygen at rest but 2 L with ambulation per home O2 assessment on 03/23/2021. She has a moderately severe restrictive abnormality with a total lung capacity of 67% predicted. She has a CT scan of the chest that demonstrates severe thoracic spondylosis and some kyphosis with no emphysematous or interstitial lung disease. I believed her MAHER and hypoxemia is related to her restrictive lung disease with evidence of kyphosis on her CT scan but no evidence of interstitial lung disease. I suspect there also is a component of deconditioning for her MAHER. Patient has minimal respiratory limitations in her activities of daily living at this time and is currently walking 3/4 to 1 mile 5 days a week and this takes her 45 minutes without oxygen. She has pleased with this progress. Portable oxygen concentrator process was initiated. At this time there is no specific pulmonary follow-up needed. Please refer the patient to us should she have any new issues. 08/11/2022:? Cardiology outpatient visit states some SOB but able to walk outside 1/4 mi or so with only stopping once.? Thinks she might need to see pulmonary again.? Wears O2 at night and naps. 12/15/2022:? Cardiology, Dr. Vazquez, she is still SOB with stairs, ADLs like running vacuum about the same from last visit.? O2 saturation 92% room air at rest.? Complaints of SOB stable.? She does not appear to be in decompensated heart failure.? At rest 93% on room air after 1 lap = 95%.? Two laps = 90%, 3 laps = 90%.? Patient does not qualify for supplemental oxygen with ambulation although she is mildly hypoxic.? I have strongly encouraged her to contact her final assembler boat again to be seen as soon as possible for further recommendations and management in this regard. This appears to be the explanation of her symptoms in the absence of decompensated heart failure.? Her echo is not suggestive of significant valvular heart disease.? Her AFib is persistent with a reasonably controlled ventricular response.? Patient verbalized understanding. DATA: EXAMINATION:CT diagnostic chest wo con DATE: 04/03/2021 12:41 INDICATION: Other disorders of lung. COMPARISON: Chest CT 03/20/2019, 06/18/2016 FINDINGS: There is mild emphysema. There is mild bronchiectasis in right middle lobe and lingula. A calcified right lung nodule and calcified right hilar and mediastinal lymph nodes are consistent with old granulomatous disease. There is mild atelectasis in the inferior lungs. There is an 8 mm nodule in right lower lobe without change, likely benign. No pleural effusion. The heart size is normal. There are coronary artery calcifications. No pericardial effusion. Calcifications in the spleen are consistent with old granulomatous disease. There are changes of cholecystectomy. 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 There is lucency around the glenoid component with subsidence, consistent with loosening. There is severe thoracic spondylosis. There are changes of vertebroplasty at L1. IMPRESSION: 1. Mild emphysema. 2. 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 03/23/21 PFTs ? This is a pulmonary function test with pre and post-bronchodilator spirometry, plethysmography and diffusing capacity. The test was performed and results interpreted in accordance with the 2019 and 2005 ATS/ERS Task Force guidelines respectively using the Global Lung Function Initiative-2012 reference equations. Patient demonstrated good effort and cooperation. Reproducibility criteria were met. The quality of the pre bronchodilator spirometry maneuver was Grade A and post bronchodilator spirometry maneuver was Grade A. Findings: Spirometry:? The contour of the expiratory flow tracing is that of a witch's hat.? The contour the inspiratory flow tracing is normal.? The pre bronchodilator FVC is 1.54 L, 54% predicted.? The pre bronchodilator FEV1 is 1.13 L, 57% predicted.? The FEV1: FVC ratio 73%.? The post bronchodilator FVC is 1.51 L, representing a 2% decrease.? The post bronchodilator FEV1 is 1.18 L, representing a 5% decrease. Plethysmography:? The total lung capacity is 3.44 L, 67% predicted.? The functional residual capacity is 2.16 L, 76% predicted.? The residual volume is 1.90 L, 87% predicted. Diffusing capacity:? The absolute diffusion capacity is 12.3, 60% predicted.? The diffusing capacity corrected for alveolar volume is 5.26, 157% predicted. Impression: There is a moderately severe restrictive ventilatory abnormality. The spirometry is normal without evidence of an obstructive abnormality. There is no significant improvement after inhaling a single dose of albuterol. The ? Absolute diffusion capacity is normal and increased when corrected for alveolar volume. There are no prior studies for comparison. 03/03/2021: Patient had an overnight oximetry on room air that demonstrated a basal saturation of 90.3%.? High saturation 98.0%.? Low saturation 76.0%.? Time with saturation less than or equal to 88% was 63.7 minutes.? I will prescribe 2 L nasal cannula oxygen at night and repeat an overnight oximetry on 2 L nasal cannula. Review of Systems Review of Systems: All systems reviewed & are unremarkable except as noted in HPI and below Constitutional: Constitutional: Reports no additional constitutional complaints Eyes: Eyes: Reports no additional eye complaints ENT: Reports system reviewed and no additional complaints, except as doc umented Cardiovascular: Cardiovascular: Reports no additional cardiovascular complaints Respiratory: Respiratory: Reports no additional respiratory complaints Gastrointestinal: Gastrointestinal: Reports no additional gastrointestinal complaints Musculoskeletal: Musculoskeletal: Reports no additional musculoskeletal complaints Neurologic: Reports system reviewed and no additional complaints, except as documented Psychiatric: Psychiatric: Reports no additional psychiatric complaints Endocrine: Endocrine: Reports no additional endocrine complaints Hematologic/Lymphatic: Hematologic/Lymphatic: Reports no additional hematologic/lymphatic complaints Allergic/Immunologic: Allergic/Immunologic: Reports no additional allergic/immunologic complaints Exam Const: General: cooperative, healthy appearing and comfortable Orientatio n/consciousness: oriented to person, oriented to place and oriented to time HENMT: Head: normal to inspection Ears: hearing grossly normal bilaterally Eyes: General: appearance normal, both eyes and all related structures Neck: Neck: normal visual inspection Chest: Chest palpation & inspection: normal inspection of the chest Resp: Effort & Inspection: normal respiratory effort and able to speak in complete sentences Auscultation: crackles, no rales, no rhonchi, no wheezes and lung sounds not diminished Other: rhonchorous Cardio: Jugular venous distension: no JVD GI: Inspection: normal to inspection Skin: General skin exam: normal color Neuro: General: oriented to person, oriented to place and oriented to time Extrem: General: normal to inspection Psych: Appearance: grossly normal Objective Data Vital Signs Vital Signs: Vital Signs - 24 hr 08/04/24 12:02 08/04/24 14:00 08/04/24 15:09 Temperature 36.0 C L Pulse Rate 87 84 82 Respiratory Rate 20 20 Blood Pressure 145/83 H Pulse Oximetry 92 Oxygen Delivery Oxygen Flow Rate 08/04/24 15:28 08/04/24 16:02 08/04/24 20:00 Temperature Pulse Rate 89 78 Respiratory Rate 20 Blood Pressure Pulse Oximetry 94 Oxygen Delivery High Flow Nasal Cannula Oxygen Flow Rate 7 08/04/24 20:00 08/04/24 20:51 08/04/24 20:55 Temperature 36.4 C L Pulse Rate 84 78 90 Respiratory Rate 18 Blood Pressure 142/66 H Pulse Oximetry 94 Oxygen Delivery Oxygen Flow Rate 08/04/24 21:26 08/04/24 21:32 08/05/24 00:00 Temperature Pulse Rate 87 95 80 Respiratory Rate 24 H 24 H Blood Pressure Pulse Oximetry Oxygen Delivery Oxygen Flow Rate 08/05/24 03:06 08/05/24 03:06 08/05/24 04:00 Temperature Pulse Rate 80 86 Respiratory Rate 20 Blood Pressure Pulse Oximetry 95 Oxygen Delivery Nasal Cannula Oxygen Flow Rate 7 08/05/24 05:30 08/05/24 10:12 Temperature 36.1 C L Pulse Rate 87 124 H Respiratory Rate 18 Blood Pressure 134/78 Pulse Oximetry 92 Oxygen Delivery Oxygen Flow Rate Intake/Output Intake/Output: Intake & Output 08/02/24 08/03/24 08/04/24 08/05/24 23:59 23:59 23:59 23:59 Intake Total 1310 1715 1348 400 Output Total 943 306 2901 500 Balance 1060 1215 -52 -100 Meds/Results Medications: Active Medications Generic Name Dose Route Start Last Admin Trade Name Freq PRN Reason Stop Dose Admin Acetaminophen 650 mg 07/30/24 16:59 Acetaminophen 325 Mg Tablet PO Q4H PRN Mild Pain (1-3) or Fever Hydrocodone Bitart/Acetaminophen 1 tab 07/30/24 16:59 Hydrocodone/Acetaminophen (*Crx) 5-325 Mg Tablet PO Q4H PRN Pain Rated 4-6 Apixaban 5 mg 07/31/24 21:00 08/05/24 10:15 Apixaban 5 Mg Tablet PO 5 mg Q12HR PERFECTO Administration Carbidopa/Levodopa 2 tablet 07/31/24 06:00 08/05/24 05:59 Carbidopa/Levodopa 25/100 Mg Tablet BY MOUTH 2 tablet 0600,1200 PERFECTO Administration Carbidopa/Levodopa 1 tablet 07/30/24 22:55 08/04/24 20:51 Carbidopa/Levodopa 25/100 Mg Tablet BY MOUTH 1 tablet HS PERFECTO Administration Diltiazem HCl 120 mg 08/03/24 12:00 08/05/24 10:15 Diltiazem Hcl Cd 120 Mg Cap.24hr PO 120 mg QAM PERFECTO Administration Guaifenesin 600 mg 07/31/24 11:30 08/05/24 10:16 Guaifenesin 12 Hr 600 Mg Tabcr PO 600 mg Q12HR PERFECTO Administration Guaifenesin/Dextromethorphan 10 ml 07/31/24 11:22 Guaifenesin/Dextromethorphan 10 Ml Udc PO Q4HR PRN Cough Ceftriaxone Sodium 2 gm in 100 mls @ 200 mls/hr 08/03/24 18:00 08/04/24 17:56 Rocephin 2 Gm/Ns 100 Ml IVPB Infused Q24H PERFECTO Infusion Ipratropium [place] 0.5 mg 07/31/24 14:00 08/05/24 08:55 Ipratropium Br 0.02% Inh Soln 0.5 Mg/2.5 Ml Vial INHALATION 0.5 mg Q6HRT PERFECTO Administration Levalbuterol HCl 1.25 mg 07/31/24 14:00 08/05/24 08:55 Levalbuterol Neb 1.25 Mg/3 Ml INHALATION 1.25 mg Q6HRT PERFECTO Administration Levothyroxine Sodium 112 mcg 07/31/24 06:30 08/05/24 05:58 Levothyroxine Sodium 112 Mcg Tablet PO 112 mcg DAILY@0630 PERFECTO Administration Metoprolol Tartrate 100 mg 07/30/24 22:50 08/05/24 10:12 Metoprolol Tartrate 50 Mg Tab PO 100 mg Q12HR PERFECTO Administration Ondansetron HCl 4 mg 07/30/24 16:59 Ondansetron Inj 4 Mg/2 Ml Vial IV PUSH Q4H PRN Nausea Oseltamivir Phosphate 30 mg 08/04/24 21:00 08/05/24 10:16 Oseltamivir Phosphate 30 Mg Capsule PO 08/09/24 21:01 30 mg Q12HR PERFECTO Administration Polyethylene Glycol 17 gm 08/01/24 14:14 08/01/24 14:26 Polyethylene Glycol 3350 17 Gm Powd.Pack PO 17 gm QAM PRN Administration Constipation Rosuvastatin Calcium 5 mg 07/31/24 09:00 08/05/24 10:15 Rosuvastatin 5 Mg Tablet BY MOUTH 5 mg DAILY PERFECTO Administration Radiology Results: ITS Impressions Chest X-Ray 08/04/24 08:36 IMPRESSION: Left mid and bilateral lower lung infiltrates Moderate left pleural effusion, increased since 08/2024 Cardiomegaly, aortic atherosclerosis Labs Labs: Laboratory Results - last 24 hr 08/04/24 09:48 Nasal MRSA (PCR) Not detected
--- NOTE | 2024-08-05 15:15 | P.PNIM_ITS ---
Progress Note: A&P Assessment and Plan (1) Influenza A: Code(s): J10.1 - Influenza due to other identified influenza virus with other respiratory manifestations Status: Acute (2) CHF exacerbation: Code(s): I50.9 - Heart failure, unspecified Status: Acute (3) Acute respiratory distress: Code(s): R06.03 - Acute respiratory distress Status: Inactive (4) Atrial fibrillation: Qualifiers: Atrial fibrillation type: unspecified Qualified Code(s): I48.91 - Unspecified atrial fibrillation Code(s): I48.91 - Unspecified atrial fibrillation Status: Acute (5) Hyperlipidemia: Qualifiers: Hyperlipidemia type: mixed hyperlipidemia Qualified Code(s): E78.2 - Mixed hyperlipidemia Code(s): E78.5 - Hyperlipidemia, unspecified Status: Acute (6) Essential hypertension: Code(s): I10 - Essential (primary) hypertension Status: Acute (7) Parkinson's 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, without mention of fluctuations: Qualifiers: Fluctuating manifestations: without fluctuating manifestations Qualified Code(s): G20.A1 - Parkinson's 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, without mention of fluctuations Code(s): G20.A1 - Parkinson's 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, without mention of fluctuations Status: Acute Plan This is an 83-year-old female presents to the ED with increased generalized weakness fatigue and went to urgent care where she was found to be hypoxic. She also reported cough. On the ED evaluation she was hypoxic 84% on room air was placed on 4 L oxygen via nasal cannula mildly tachycardic. AFib on EKG. Laboratory data showed normal WBC 7.8 hemoglobin of 15.4 platelet 186 Chem panel was unremarkable. BNP was elevated at 3840. Influenza RSV COVID swab tested positive for influenza A. Chest x-ray showed mild pulmonary vascular congestion with small bilateral pleural effusion and adjacent compressive atelectasis. Patient on chronic anticoagulation with apixaban. Patient admitted started on Tamiflu for influenza a. Will check procalcitonin Also treated for acute congestive heart failure. No prior diagnosis of congestive heart failure the she has been worked up for dyspnea on exertion in the past. Cardiology consulted. Echo ordered. IV Lasix b.i.d. repeat E chest x-ray with improved congestion. Because of atrial fibrillation will change DuoNeb to Xopenex and ipratropium. Droplet isolation to continue. Last echo 2021 with EF 70% trace TR RVSP 37 mild LVH Atrial fibrillation with rapid ventricular rate cardiology on board changed to Xopenex continue home metoprolol and Eliquis Hypertension Hyperlipidemia Parkinson's disease Sleep apnea uses oxygen at night Restrictive lung disease with kyphosis plans to get a portable oxygen concentrator in the past per pulmonary note and family. Will need home oxygen evaluation at the time of discharge to evaluate this. Hypothyroidism 08/01/24 - Assuming care. Continue Tamiflu for Influenza. Wean O2 as tolerated. She does have underlying O2 requirements but worse now. Encourage IS use. Consider a component of CHF as well. Remains on IV lasix. Echo ordered. Replace potassium to keep above 4.0. PT/OT ordered. Check CXR in the morning 08/02/24 - CXR showing small left pleural effusion with left basliar and left perihilar airspace disease. Continue Tamiflu to complete a course. Continue to encourage being up. Encourage IS use. No wheezing. Will back down on steroids. Switch to oral steroids in 1-2 days. Labs stable. Heart rate better controlled afterIV Digoxin and adding oral diltiazem. Serum bicarb >40 - change to oral Lasix soon? Continue PT/OT. 08/03/24 - Feels better. AFib under control. O2 requirement was better yesterday but still with considerable O2 requirement and not trending as expected. Echo pending. Will stop steroids after today. Lasix stopped 08/02/24. Continue bronchodilators. Continue Tamiflu. Wean O2 as tolerated. Acetazolamide x 1. May benefit from a 10 day course of Tamiflu. No fevers or elevated WBC but consider 2nd bacterial infection. Check sputum and blood cx. Start abx. Consider CT chest 08/04/24 - Some improvement but still requiring 7-8L. Discussed with pulmonary. Plan for 10 days of Tamiflu treatment. MRSA swab negative so will stop Vanco. Steroids stopped on 08/03. CRP 0.5. CXR showing left mid and lower lung infiltrate. CT chest does not show obvious large effusion. Add CPT to try to open up LLL. Probably atelectasis and less likely PNA 08/05/24 -some mild improvement in her oxygen requirement. Continue IV antibiotics. Continue steroids. Continue Tamiflu for 10 day course. MRSA nasal swab was negative. Vancomycin was stopped. DVT prophylaxis on Eliquis Code status do not resuscitate Subjective Date/time seen: 08/05/24 15:15 Interval history: 83yo female with restrctive lung disease, HTN and chronic respiratory failure here for dyspnea. She wears 2L O2 with sleep but family feels she needs it more continuously. Slept well. No chest pain. Shortness of breath is better. Eating okay. Exam Narrative: AF 96.6 148/83 92 17 94% 7L Gen - NARD Chest -inspiratory rhonchi appreciated anteriorly and in the flanks. CV -irregularly irregular. S1-S2. Telemetry showing AFib with controlled rate Abd - Soft, NT/ND, Positive BS Ext - No pedal edema Psych - Nml mood and affect Skin - Warm and dry Objective Data Vital Signs Vital Signs: Vital Signs - 24 hr 08/04/24 15:28 08/04/24 16:02 08/04/24 20:00 Temperature Pulse Rate 89 78 Respiratory Rate 20 Blood Pressure Pulse Oximetry 94 Oxygen Delivery High Flow Nasal Cannula Oxygen Flow Rate 7 08/04/24 20:00 08/04/24 20:51 08/04/24 20:55 Temperature 97.5 F L Pulse Rate 84 78 90 Respiratory Rate 18 Blood Pressure 142/66 H Pulse Oximetry 94 Oxygen Delivery Oxygen Flow Rate 08/04/24 21:26 08/04/24 21:32 08/05/24 00:00 Temperature Pulse Rate 87 95 80 Respiratory Rate 24 H 24 H Blood Pressure Pulse Oximetry Oxygen Delivery Oxygen Flow Rate 08/05/24 03:06 08/05/24 03:06 08/05/24 04:00 Temperature Pulse Rate 80 86 Respiratory Rate 20 Blood Pressure Pulse Oximetry 95 Oxygen Delivery Nasal Cannula Oxygen Flow Rate 7 08/05/24 05:30 08/05/24 08:55 08/05/24 08:55 Temperature 97.0 F L Pulse Rate 87 83 Respiratory Rate 18 20 Blood Pressure 134/78 Pulse Oximetry 92 92 Oxygen Delivery High Flow Nasal Cannula Oxygen Flow Rate 7 08/05/24 09:05 08/05/24 10:12 08/05/24 14:00 Temperature 96.6 F L Pulse Rate 90 124 H 92 Respiratory Rate 20 17 Blood Pressure 148/83 H Pulse Oximetry 94 Oxygen Delivery Oxygen Flow Rate Intake/Output Intake/Output: Intake & Output 08/02/24 08/03/24 08/04/2425 23:59 23:59 23:59 23:59 Intake Total 1310 1715 1343 618 Output Total 910 829 6380 1000 Balance 1060 1215 -52 -222 Meds/Results Medications: Active Medications Generic Name Dose Route Start Last Admin Trade Name Freq PRN Reason Stop Dose Admin Acetaminophen 650 mg 07/30/24 16:59 Acetaminophen 325 Mg Tablet PO Q4H PRN Mild Pain (1-3) or Fever Hydrocodone Bitart/Acetaminophen 1 tab 07/30/24 16:59 Hydrocodone/Acetaminophen (*Crx) 5-325 Mg Tablet PO Q4H PRN Pain Rated 4-6 Apixaban 5 mg 07/31/24 21:00 08/05/24 10:15 Apixaban 5 Mg Tablet PO 5 mg Q12HR PERFECTO Administration Carbidopa/Levodopa 2 tablet 07/31/24 06:00 08/05/24 12:47 Carbidopa/Levodopa 25/100 Mg Tablet BY MOUTH 2 tablet 0600,1200 PERFECTO Administration Carbidopa/Levodopa 1 tablet 07/30/24 22:55 08/04/24 20:51 Carbidopa/Levodopa 25/100 Mg Tablet BY MOUTH 1 tablet HS PERFECTO Administration Diltiazem HCl 120 mg 08/03/24 12:00 08/05/24 10:15 Diltiazem Hcl Cd 120 Mg Cap.24hr PO 120 mg QAM PERFECTO Administration Guaifenesin 1,200 mg 08/05/24 21:00 Guaifenesin 12 Hr 600 Mg Tabcr PO Q12HR PERFECTO Ceftriaxone Sodium 2 gm in 100 mls @ 200 mls/hr 08/03/24 18:00 08/04/24 17:56 Rocephin 2 Gm/Ns 100 Ml IVPB Infused Q24H PERFECTO Infusion Ipratropium [place] 0.5 mg 07/31/24 14:00 08/05/24 14:36 Ipratropium Br 0.02% Inh Soln 0.5 Mg/2.5 Ml Vial INHALATION 0.5 mg Q6HRT PERFECTO Administration Levalbuterol HCl 1.25 mg 07/31/24 14:00 08/05/24 14:36 Levalbuterol Neb 1.25 Mg/3 Ml INHALATION 1.25 mg Q6HRT PERFECTO Administration Levothyroxine Sodium 112 mcg 07/31/24 06:30 08/05/24 05:58 Levothyroxine Sodium 112 Mcg Tablet PO 112 mcg DAILY@0630 PERFECTO Administration Metoprolol Tartrate 100 mg 07/30/24 22:50 08/05/24 10:12 Metoprolol Tartrate 50 Mg Tab PO 100 mg Q12HR PERFECTO Administration Ondansetron HCl 4 mg 07/30/24 16:59 Ondansetron Inj 4 Mg/2 Ml Vial IV PUSH Q4H PRN Nausea Oseltamivir Phosphate 30 mg 08/04/24 21:00 08/05/24 10:16 Oseltamivir Phosphate 30 Mg Capsule PO 08/09/24 21:01 30 mg Q12HR PERFECTO Administration Polyethylene Glycol 17 gm 08/01/24 14:14 08/01/24 14:26 Polyethylene Glycol 3350 17 Gm Powd.Pack PO 17 gm QAM PRN Administration Constipation Rosuvastatin Calcium 5 mg 07/31/24 09:00 08/05/24 10:15 Rosuvastatin 5 Mg Tablet BY MOUTH 5 mg DAILY PERFECTO Administration Radiology Results: ITS Impressions Chest X-Ray 08/04/24 08:36 IMPRESSION: Left mid and bilateral lower lung infiltrates Moderate left pleural effusion, increased since 08/2024 Cardiomegaly, aortic atherosclerosis Chest CT 08/05/24 11:26 IMPRESSION: Small left pleural effusion and bilateral areas of atelectasis, most prominent at the base of the left lower lobe Cardiomegaly
[2024-08-05 16:20] LABS: Alveolar/Arterial O2 Gradient 458.6 mmHg; Base Excess ABG 7.7 mEq/l (+/-2.0); Fractional Inspired Oxygen 80 %; HCO3 ABG 33.6 mEq/l (22.0-26.0); Oxygen Content ABG 22.7 %vol (16.0-22.0); Oxygen Saturation ABG 91.2 % (95.0-100.0); Oxyhemoglobin 91.5 % THb (90.0-100.0); PCO2 ABG 50.4 mmHg (35.0-45.0); PO2 ABG 58.9 mmHg (80.0-100.0); PO2 FiO2 Ratio Arterial Blood 0.74 %; Total Hemoglobin 17.7 g/dL (12.0-18.0); pH ABG 7.442 (7.350-7.450)
[2024-08-05 16:21] LABS: Device HIGH FLOW NASAL CANN; Modified Allen's Test Pass; Site Drawn LEFT RADIAL
[2024-08-05] MEDS: cefTRIAXone 2 GM/NS 100 ML 2 GM/100 ML BAG IVPB (17:18)
[2024-08-05] MEDS: guaiFENesin 12 HR 600 MG TABCR 1200 MG PO (19:59)
[2024-08-05] MEDS: CARBIDOPA/LEVODOPA 25/100 MG TABLET 1 TABLET BY MOUTH (20:00)
[2024-08-06] VITALS (18 sets, daily range): BP systolic 136–148; BP diastolic 62–83; PULSE 62–100; RESP 16–20; TEMP 36.4; O2SAT 92–99
--- NOTE | 2024-08-06 | ECHO_ITS ---
Patient Info Name: Jing Garcias Age: 83 years : 1940 Gender: Female Ht: 64 in Wt: 172 lbs BSA: 1.90 m2 HR: 82 bpm BP: 146 / 83 mmHg Heart Rhythm: Sinus Rhythm Technical Quality: Good Exam Date: 08/06/2024 2:39 PM Exam Location: Echo Lab Patient Status: Inpatient Admit Date: 07/30/2024 Staff Ordering Physician: Dale Merrill MD [employer] Installer: Denise Martinez RDCS Attending Provider: Mariza Mcdonald MD Exam Type: CA echo limited w bubble study Study Info Indications - hypoxia Limited two-dimensional transthoracic echocardiogram is performed. Contrast/Agitated Saline Contrast/Ag. Saline: Agitated Saline Amount: 20.00 ml Administered By: Denise Martinez RDCS Existing IV Access: Yes IV Access Condition: patent with no signs of infiltration Summary 1. This was a bubble study only. 2. Intact interatrial septum visualized by agitated saline imaging. Negative bubble study. Atrial Septum Intact interatrial septum visualized by agitated saline imaging. Negative bubble study. Report Signatures
[2024-08-06] MEDS: LEVOTHYROXINE SODIUM 112 MCG TABLET PO (05:37)
[2024-08-06] MEDS: CARBIDOPA/LEVODOPA 25/100 MG TABLET 2 TABLET BY MOUTH ×2 (05:41→12:13)
[2024-08-06 06:53] LABS: Basophils Percent Auto 0.3 % (0.2-1.2); Hematocrit 54.6 % (37.0-47.0); Hemoglobin 17.2 g/dL (12.0-15.0); Immature Granulocyte Absolute 0.06 K/mm3 (0.00-0.031); Immature Granulocyte Percent A 0.5 % (0-0.5); Lymphocytes Absolute Auto 0.66 K/mm3 (0.9-3.2); Lymphocytes Percent Auto 5.6 % (18.3-44.2); Mean Corpuscular HGB Conc 31.5 g/dl (32-36); Mean Corpuscular Hemoglobin 28.9 pg (26-34); Mean Corpuscular Volume 91.8 fl (80-100); Mean Platelet Volume 9.8 fl (7.4-10.4); Monocytes Absolute Auto 0.8 K/mm3 (0.1-0.6); Monocytes Percent Auto 7.2 % (2.6-8.5); Neutrophils Absolute Auto 10.1 K/mm3 (1.3-6.7); Neutrophils Percent Auto 86.4 % (45.5-73.1); Platelet Count Result 218 k/mm3 (150-375); Red Blood Count 5.95 M/mm3 (4.2-5.4); Red Cell Distribution Width 13.9 % (11.5-14.5); White Blood Count 11.7 K/mm3 (4.5-10.0)
[2024-08-06 07:13] LABS: Blood Urea Nitrogen 31 mg/dL (7-17); CRP 1.7 mg/dL (<1.0); Calcium 8.5 mg/dL (8.4-10.2); Carbon Dioxide > 40 mmol/L (22-30); Chloride 99 mmol/L (98-107); Estimated CRCL calculation 48 ml/min; Estimated Glomerular Filt Rate > 60; Glucose 115 mg/dL (65-110); Magnesium 2.4 mg/dL (1.6-2.3); Phosphorus 2.3 mg/dL (2.5-4.5); Potassium 3.8 mmol/L (3.4-5.0); Sodium 136 mmol/L (137-145)
[2024-08-06] MEDS: POTASSIUM/PHOSPHORUS/SODIUM 1.5 GM PACKET 1 PACKET PO (09:07)
[2024-08-06] MEDS: guaiFENesin 12 HR 600 MG TABCR 1200 MG PO ×2 (09:08→21:12)
[2024-08-06] MEDS: APIXABAN 5 MG TABLET PO ×2 (09:09→21:12)
[2024-08-06] MEDS: dilTIAZem HCL CD 120 MG CAP.24HR PO (09:09)
[2024-08-06] MEDS: ROSUVASTATIN 5 MG TABLET BY MOUTH (09:09)
[2024-08-06] MEDS: METOPROLOL TARTRATE 50 MG TAB 100 MG PO ×2 (09:09→21:12)
[2024-08-06] MEDS: OSELTAMIVIR PHOSPHATE 30 MG CAPSULE PO ×2 (09:11→21:12)
[2024-08-06 09:36] LABS: NT Pro B Type Natriuretic Pept 3090 pg/mL (19.9-100)
[2024-08-06] MEDS: LEVALBUTEROL NEB 1.25 MG/3 ML INHALATION ×3 (09:49→21:45)
[2024-08-06] MEDS: IPRATROPIUM BR 0.02% INH SOLN 0.5 MG/2.5 ML VIAL INHALATION ×3 (09:50→21:45)
--- NOTE | 2024-08-06 12:23 | P.PNPL_ITS ---
Progress Note: A&P Assessment and Plan (1) Influenza A: Code(s): J10.1 - Influenza due to other identified influenza virus with other respiratory manifestations Status: Acute Assessment and Plan: 08/04/23: overall the patient tells me she has a little bit better. She is afebrile. White blood cell count 9.3. Creatinine 1.0. Patient is afebrile. CRP is 0.5. Procalcitonin 0.1. Currently she is on 7 L nasal cannula oxygen with saturations 95%. Chest x-ray today shows an enlarged left lower lobe consolidation consistent with effusion and/or atelectasis. Later in the day CT scan of the chest showed a small left pleural effusion with left lower lobe consolidation with air bronchograms. Plan: Agree with treatment for influenza a pneumonia. Currently she is on day 4 of Tamiflu. She is now off systemic steroids. She was empirically started on vancomycin and ceftriaxone on 08/03/2024 and would continue for now. Goal saturation 90-94%. The patient tells me she improves with levalbuterol and ipratropium nebulizers q.6 hours and will continue. Continue guaifenesin 600 mg p.o. q.12 hours. Continue incentive spirometry and Cornet flutter valve. 08/05/24: Overall the patient states she has a little bit better. She has a moist cough but is unable to bring up any phlegm. Currently she is on 7 L nasal cannula saturations 90%. She is afebrile, creatinine is 1.0. Plan: continue Tamiflu, day 6. Recommend treating for 10 days. MRSA swab negative, vancomycin discontinued. Continue ceftriaxone, day 3. Continue levalbuterol and ipratropium nebulizers q.6 and guaifenesin will increase to 1200 mg twice a day. later in the day patient had worsening oxygenation requiring 13 L nasal cannula. ABG on 13 L 7.44/50/59. 08/06/2024: Patient continues to tell me she does a little bit better each day. She has a dry cough, no phlegm, no hemoptysis. Patient was in the middle of a physical therapy session and had just walked from the her bed to the door and back on 10 L nasal cannula her saturations were 98%. White blood cell count 11.7, creatinine 0.8. BNP 3090 improved from 4430. Plan: Continue Tamiflu, day 7, renally adjusted. Continue ceftriaxone day 4, continue levalbuterol and ipratropium nebulizers q.6 and guaifenesin 1200 twice a day. Discussed with Dr. Merrill, will follow with you. (2) Hypoxia: Code(s): R09.02 - Hypoxemia Status: Acute Assessment and Plan: At baseline she had dyspnea on exertion and required 2 L oxygen at night and none with rest or with activity. 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 plan: Patient currently on 7 L nasal cannula. Suspect her current hypoxemia is related to influenza pneumonia with a small left pleural effusion and consolidation in the left lower lobe. Continue treatment as above. 08/05/2024: Currently she is on 7 L nasal cannula saturations 90%. Plan: Treatment for influenza pneumonia as above. Will continue Cornet flutter valve. Will add EzPAP. Out of bed to chair as tolerated. 08/06/24: Patient was on 13 L nasal cannula yesterday and today has been decreased to 10 L nasal cannula. Plan: Continue Tamiflu as above. Continue Cornet flutter valve, incentive spirometry which she is doing 600 mL, and EzPAP. Will order echo with bubble study. Subjective Date/time seen: 08/06/24 12:23 Interval history: Aug 03, 2024 at 22:00 Room 331 NEW: Jing Garcias is 83 years old, admitted with influenza and acute hypoxic respiratory failure. Last office visit w Dr Ramesh was 06/06/23; restrictive impairment with need for O2 2 L w exertion. She did not require a follow up appointment. She never gets a flu vaccination. She was admitted with increased shortness of breath, PCR (+) for influenza A and acute hypercapnic respiratory failure. She feels better now compared to admission. She was started on Tamiflu 75 mg p.o. q.12 hours and IV Solu-Medrol which was discontinued today. She had rapid atrial fibrillation, was treated with diltiazem. She initially required 15 liters/minute, the amount fluctuated on the initial admission date July 31, was down to 7 or 8 L a minute, now stable at 8 L for the last 2 - 3 days. 08/04/23: overall the patient tells me she has a little bit better. She is afebrile. White blood cell count 9.3. Creatinine 1.0. Patient is afebrile. CRP is 0.5. Procalcitonin 0.1. Currently she is on 7 L nasal cannula oxygen with saturations 95%. Chest x-ray today shows an enlarged left lower lobe consolidation consistent with effusion and/or atelectasis. 08/05/24: Overall the patient states she has a little bit better. She has a moist cough but is unable to bring up any phlegm. Currently she is on 7 L nasal cannula saturations 90%. She is afebrile, creatinine is 1.0. later in the day patient had worsening oxygenation requiring 13 L nasal cannula. ABG on 13 L 7.44/50/59. 08/06/2024: Patient continues to tell me she does a little bit better each day. She has a dry cough, no phlegm, no hemoptysis. Patient was in the middle of a physical therapy session and had just walked from the her bed to the door and back on 10 L nasal cannula her saturations were 98%. White blood cell count 11.7, creatinine 0.8. BNP 3090 improved from 4430. DATA: 08/04/24: EXAMINATION: CT diagnostic chest wo con INDICATION: Left lower lobe pneumonia versus effusion COMPARISON: 08/04/2024 portable AP chest FINDINGS: Small left pleural effusion. There is linear atelectasis or scarring of the lingula. There is more prominent left basilar lower lobe atelectasis, minimal dependent right lower lobe atelectasis. Cardiomegaly. There is extensive thoracic aortic calcification including ascending aorta, aortic arch, descending thoracic aorta. No thoracic aortic aneurysm. No hilar or mediastinal mass lesion or adenopathy. No pericardial effusion. Status post cholecystectomy. IMPRESSION: Small left pleural effusion and bilateral areas of atelectasis, most prominent at the base of the left lower lobe Cardiomegaly * MRSA swab negative, influenza A positive, all other PCR are negative, influenza B, RSV, SARS-CoV-2. * 08/03/2024 sodium 137, potassium 4.3, chloride 93, HC03 greater than 40, BUN 60, initially was 31, increased over the next 3 days there was 60, creatinine 0.7 * 07/31/24; ABG; pH 7.42, pCO2 53.3, pO2 73.4, HC03 34.1, saturation 94.8 on high-flow 8 L * 08/02/24 : Impression: Small left pleural effusion with left basilar and left perihilar airspace disease. Correlate for atelectasis/edema versus pneumonia. * 07/30/24 : Central congestive change with probable minimal bibasilar pulmonary edema/atelectatic change. 03/02/2023: This is a pulmonary function test with pre and post-bronchodilator spirometry, plethysmography and diffusing capacity.? The test was performed and results interpreted in accordance with the 2019 and 2005 ATS/ERS Task Force guidelines respectively using the Global Lung Function Initiative-2012 reference equations. Patient demonstrated good effort and cooperation. Reproducibility criteria were met. The quality of the pre bronchodilator spirometry maneuver was Grade A and post bronchodilator spirometry maneuver was Grade A.? I spoke with the chemical laboratory technician and the patient required coaching to complete the spirometry and the remainder of the test the patient did well and there were no technical issues measuring the lung volumes. Findings: Spirometry:? The contour the inspiratory and expiratory flow tracing are normal.? The pre bronchodilator FVC is 1.46 L, 56% predicted.? The pre bronchodilator FEV1 is 1.03 L, 52% predicted.? The pre bronchodilator FEV1: FVC ratio 70%.? The post bronchodilator FVC is 1.31 L, representing an 11% decrease.? The post bronchodilator FEV1 is 1.00 L, representing a 3% decrease.? The post bronchodilator FEV1: FVC ratio 76%.? Plethysmography:? The total lung capacity 7.08 L, 136% predicted.? The functional residual capacity is 5.89 L, 196% predicted.? The residual volume is 5.61 L, 228% predicted.? Diffusing capacity:? The diffusing capacity unadjusted for hemoglobin and carboxyhemoglobin is 12.5, 63% predicted.? The diffusing capacity adjusted for alveolar volume is 5.71, 140% predicted.? In comparison to previous pulmonary function testing on 03/23/2021 the post bronchodilator FVC is unchanged from 1.51 L to 1.31 L.? The post bronchodilator FEV1 is decreased from 1.18 L to 1.00 L.? The total lung capacity has increased from 3.44 L to 7.08 L.? The functional residual capacity is increased from 2.16 L to 5.89 L.? The residual volume has increased from 1.90 L to 5.61 L.? The diffusing capacity unadjusted for hemoglobin and carboxyhemoglobin is unchanged from 12.3 to 12.5.? The diffusing capacity adjusted for alveolar volume is unchanged from 5.26 to 5.71. Impression: The spirometry is normal without evidence of an obstructive abnormality. The lung volumes are increased without evidence of a restrictive ab normality. ? The FVC and FEV1 are moderately severely decreased without an obstructive or restrictive abnormality.? This is an abnormal but nonspecific finding.? There is no significant improvement after inhaling a single dose of albuterol.? The total lung capacity, functional residual capacity and residual volume are increased with an increased residual volume: TLC ratio.? This is consistent with hyperinflation. The diffusing capacity unadjusted for hemoglobin and carboxyhemoglobin is mildly decreased and increased when adjusted for alveolar volume.? In comparison to previous pulmonary function testing on 03/23/2021 there has been a greater than anticipated time dependent increase in the total lung capacity, residual volume and functional residual capacity with a greater than anticipated time dependent decrease in the FEV1 with no significant change in the FVC or diffusing capacity.? Clinical correlation is recommended. 03/02/23: The patient has no obstructive abnormality and no restrictive abnormality with hyperinflation that has increased since 03/23/2021. This is a 6 minute walk test using walking aid. Resting room air oxygen saturation measured by pulse oximetry was 94% and heart rate was 64 bpm.? Patient ambulated for 122 meters and oxygen saturation remained 90 to 93%.? Heart rate at the end of the study was 88 bpm. The patient did not qualify for supplemental oxygen at rest or with ambulation. 02/16/2023: Overnight oximetry on 2 L nasal cannula. Recording duration was 1 hour and 34 minutes basal saturation 93.4%. High saturation 98%. Low saturation 89%. Time with saturation less than or equal to 88% was 0 minutes. Oxygen desaturation index is 10. Continue 2 L nasal cannula at night. 02/02/2023:? This is a follow-up encounter from 10/28/2021 for MAHER and nocturnal hypoxemia. On 10/28/2021:? Patient with MAHER and nocturnal hypoxemia. She is a nonsmoker with no occupational exposures. Patient has no rest SOB and she also requires no oxygen at rest but 2 L with ambulation per home O2 assessment on 03/23/2021. She has a moderately severe restrictive abnormality with a total lung capacity of 67% predicted. She has a CT scan of the chest that demonstrates severe thoracic spondylosis and some kyphosis with no emphysematous or interstitial lung disease. I believed her MAHER and hypoxemia is related to her restrictive lung disease with evidence of kyphosis on her CT scan but no evidence of interstitial lung disease. I suspect there also is a component of deconditioning for her MAHER. Patient has minimal respiratory limitations in her activities of daily living at this time and is currently walking 3/4 to 1 mile 5 days a week and this takes her 45 minutes without oxygen. She has pleased with this progress. Portable oxygen concentrator process was initiated. At this time there is no specific pulmonary follow-up needed. Please refer the patient to us should she have any new issues. 08/11/2022:? Cardiology outpatient visit states some SOB but able to walk outside 1/4 mi or so with only stopping once.? Thinks she might need to see pulmonary again.? Wears O2 at night and naps. 12/15/2022:? Cardiology, Dr. Vazquez, she is still SOB with stairs, ADLs like running vacuum about the same from last visit.? O2 saturation 92% room air at rest.? Complaints of SOB stable.? She does not appear to be in decompensated heart failure.? At rest 93% on room air after 1 lap = 95%.? Two laps = 90%, 3 laps = 90%.? Patient does not qualify for supplemental oxygen with ambulation although she is mildly hypoxic.? I have strongly encouraged her to contact her wool hat hydraulicker again to be seen as soon as possible for further recommendations and management in this regard. This appears to be the explanation of her symptoms in the absence of decompensated heart failure.? Her echo is not suggestive of significant valvular heart disease.? Her AFib is persistent with a reasonably controlled ventricular response.? Patient verbalized understanding. DATA: EXAMINATION:CT diagnostic chest wo con DATE: 04/03/2021 12:41 INDICATION: Other disorders of lung. COMPARISON: Chest CT 03/20/2019, 06/18/2016 FINDINGS: There is mild emphysema. There is mild bronchiectasis in right middle lobe and lingula. A calcified right lung nodule and calcified right hilar and mediastinal lymph nodes are consistent with old granulomatous disease. There is mild atelectasis in the inferior lungs. There is an 8 mm nodule in right lower lobe without change, likely benign. No pleural effusion. The heart size is normal. There are coronary artery calcifications. No pericardial effusion. Calcifications in the spleen are consistent with old granulomatous disease. There are changes of cholecystectomy. 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 There is lucency around the glenoid component with subsidence, consistent with loosening. There is severe thoracic spondylosis. There are changes of vertebroplasty at L1. IMPRESSION: 1. Mild emphysema. 2. 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 03/23/21 PFTs ? This is a pulmonary function test with pre and post-bronchodilator spirometry, plethysmography and diffusing capacity. The test was performed and results interpreted in accordance with the 2019 and 2005 ATS/ERS Task Force guidelines respectively using the Global Lung Function Initiative-2012 reference equations. Patient demonstrated good effort and cooperation. Reproducibility criteria were met. The quality of the pre bronchodilator spirometry maneuver was Grade A and post bronchodilator spirometry maneuver was Grade A. Findings: Spirometry:? The contour of the expiratory flow tracing is that of a witch's hat.? The contour the inspiratory flow tracing is normal.? The pre bronchodilator FVC is 1.54 L, 54% predicted.? The pre bronchodilator FEV1 is 1.13 L, 57% predicted.? The FEV1: FVC ratio 73%.? The post bronchodilator FVC is 1.51 L, representing a 2% decrease.? The post bronchodilator FEV1 is 1.18 L, representing a 5% decrease. Plethysmography:? The total lung capacity is 3.44 L, 67% predicted.? The functional residual capacity is 2.16 L, 76% predicted.? The residual volume is 1.90 L, 87% predicted. Diffusing capacity:? The absolute diffusion capacity is 12.3, 60% predicted.? The diffusing capacity corrected for alveolar volume is 5.26, 157% predicted. Impression: There is a moderately severe restrictive ventilatory abnormality. The spirometry is normal without evidence of an obstructive abnormality. There is no significant improvement after inhaling a single dose of albuterol. The ? Absolute diffusion capacity is normal and increased when corrected for alveolar volume. There are no prior studies for comparison. 03/03/2021: Patient had an overnight oximetry on room air that demonstrated a basal saturation of 90.3%.? High saturation 98.0%.? Low saturation 76.0%.? Time with saturation less than or equal to 88% was 63.7 minutes.? I will prescribe 2 L nasal cannula oxygen at night and repeat an overnight oximetry on 2 L nasal cannula. Review of Systems Review of Systems: All systems reviewed & are unremarkable except as noted in HPI and below Constitutional: Constitutional: Reports no additional constitutional complaints Eyes: Eyes: Reports no additional eye complaints ENT: Reports system reviewed and no additional complaints, except as documented Cardiovascular: Cardiovascular: Reports no additional cardiovascular complaints Respiratory: Respiratory: Reports no additional respiratory complaints Gastrointestinal: Gastrointestinal: Reports no additional gastrointestinal complaints Musculoskeletal: Musculoskeletal: Reports no additional musculoskeletal complaints Neurologic: Reports system reviewed and no additional complaints, except as documented Psychiatric: Psychiatric: Reports no additional psychiatric complaints Endocrine: Endocrine: Reports no additional endocrine complaints Hematologic/Lymphatic: Hematologic/Lymphatic: Reports no additional hematologic/lymphatic complaints Allergic/Immunologic: Allergic/Immunologic: Reports no additional allergic/immunologic complaints Exam Const: General: cooperative, healthy appearing and comfortable Orientation/consciousness: oriented to person, oriented to place and oriented to time HENMT: Head: normal to inspection Ears: hearing grossly normal bilaterally Eyes: General: appearance normal, both eyes and all related structures Neck: Neck: normal visual inspection Chest: Chest palpation & inspection: normal inspection of the chest Resp: Effort & Inspection: normal respiratory effort and able to speak in complete sentences Auscultation: crackles, no rales, no rhonchi, no wheezes and lung sounds not diminished Other: rhonchorous BS improvwed Cardio: Jugular venous distension: no JVD GI: Inspection: normal to inspection Skin: General skin exam: normal color Neuro: General: oriented to person, oriented to place and oriented to time Extrem: General: normal to inspection Psych: Appearance: grossly normal Objective Data Vital Signs Vital Signs: Vital Signs - 24 hr 08/05/24 14:00 08/05/24 14:36 08/05/24 15:49 Temperature 35.9 C L Pulse Rate 92 84 86 Respiratory Rate 17 20 20 Blood Pressure 148/83 H Pulse Oximetry 94 Oxygen Delivery Oxygen Flow Rate 08/05/24 16:00 08/05/24 16:12 08/05/24 20:00 Temperature Pulse Rate 78 78 Respiratory Rate Blood Pressure Pulse Oximetry 93 Oxygen Delivery High Flow Nasal Cannula Oxygen Flow Rate 13 08/05/24 20:00 08/05/24 20:00 08/05/24 22:00 Temperature 36.7 C Pulse Rate 90 81 Respiratory Rate 16 Blood Pressure 152/85 H Pulse Oximetry 93 95 Oxygen Delivery High Flow Nasal Cannula Oxygen Flow Rate 13 08/05/24 22:21 08/06/24 00:00 08/06/24 04:00 Temperature Pulse Rate 76 78 Respiratory Rate Blood Pressure Pulse Oximetry 94 Oxygen Delivery High Flow Nasal Cannula Oxygen Flow Rate 13 08/06/24 06:00 08/06/24 08:00 08/06/24 09:09 Temperature 36.4 C L Pulse Rate 63 93 Respiratory Rate 16 Blood Pressure 146/83 H Pulse Oximetry 95 98 Oxygen Delivery High Flow Nasal Cannula Oxygen Flow Rate 13 08/06/24 09:51 08/06/24 09:51 08/06/24 10:04 Temperature Pulse Rate 100 98 Respiratory Rate 20 20 Blood Pressure Pulse Oximetry 98 Oxygen Delivery High Flow Nasal Cannula Oxygen Flow Rate 13 Intake/Output Intake/Output: Intake & Output 08/03/24 08/04/24 08/05/24 08/06/24 23:59 23:59 23:59 23:59 Intake Total 1715 1348 858 640 Output Total 500 1400 1300 600 Balance 1215 -52 -442 40 Meds/Results Medications: Active Medications Generic Name Dose Route Start Last Admin Trade Name Freq PRN Reason Stop Dose Admin Acetaminophen 650 mg 07/30/24 16:59 Acetaminophen 325 Mg Tablet PO Q4H PRN Mild Pain (1-3) or Fever Hydrocodone Bitart/Acetaminophen 1 tab 07/30/24 16:59 Hydrocodone/Acetaminophen (*Crx) 5-325 Mg Tablet PO Q4H PRN Pain Rated 4-6 Apixaban 5 mg 07/31/24 21:00 08/06/24 09:09 Apixaban 5 Mg Tablet PO 5 mg Q12HR PERFECTO Administration Carbidopa/Levodopa 2 tablet 07/31/24 06:00 08/06/24 12:13 Carbidopa/Levodopa 25/100 Mg Tablet BY MOUTH 2 tablet 0600,1200 PERFECTO Administration Carbidopa/Levodopa 1 tablet 07/30/24 22:55 08/05/24 20:00 Carbidopa/Levodopa 25/100 Mg Tablet BY MOUTH 1 tablet HS PERFECTO Administration Diltiazem HCl 120 mg 08/03/24 12:00 08/06/24 09:09 Diltiazem Hcl Cd 120 Mg Cap.24hr PO 120 mg QAM PERFECTO Administration Guaifenesin 1,200 mg 08/05/24 21:00 08/06/24 09:08 Guaifenesin 12 Hr 600 Mg Tabcr PO 1,200 mg Q12HR PERFECTO Administration Ceftriaxone Sodium 2 gm in 100 mls @ 200 mls/hr 08/03/24 18:00 08/05/24 17:18 Rocephin 2 Gm/Ns 100 Ml IVPB 200 mls/hr Q24H PERFECTO Administration Ipratropium [place] 0.5 mg 07/31/24 14:00 08/06/24 09:50 Ipratropium Br 0.02% Inh Soln 0.5 Mg/2.5 Ml Vial INHALATION 0.5 mg Q6HRT PERFECTO Administration Levalbuterol HCl 1.25 mg 07/31/24 14:00 08/06/24 09:49 Levalbuterol Neb 1.25 Mg/3 Ml INHALATION 1.25 mg Q6HRT PERFECTO Administration Levothyroxine Sodium 112 mcg 07/31/24 06:30 08/06/24 05:37 Levothyroxine Sodium 112 Mcg Tablet PO 112 mcg DAILY@0630 PERFECTO Administration Metoprolol Tartrate 100 mg 07/30/24 22:50 08/06/24 09:09 Metoprolol Tartrate 50 Mg Tab PO 100 mg Q12HR PERFECTO Administration Ondansetron HCl 4 mg 07/30/24 16:59 Ondansetron Inj 4 Mg/2 Ml Vial IV PUSH Q4H PRN Nausea Oseltamivir Phosphate 30 mg 08/04/24 21:00 08/06/24 09:11 Oseltamivir Phosphate 30 Mg Capsule PO 08/09/24 21:01 30 mg Q12HR PERFECTO Administration Perflutren Lipid Microsphere 0 ml 08/05/24 15:26 Perflutren Lipid Microspheres 1.5 Ml Vial Diluted To 10 Ml Total Volume IV PUSH 08/08/24 15:26 ONCE PRN adequate visualization Protocol Polyethylene Glycol 17 gm 08/01/24 14:14 08/01/24 14:26 Polyethylene Glycol 3350 17 Gm Powd.Pack PO 17 gm QAM PRN Administration Constipation Rosuvastatin Calcium 5 mg 12/31/24 09:00 08/06/24 09:09 Rosuvastatin 5 Mg Tablet BY MOUTH 5 mg DAILY PERFECTO Administration Radiology Results: ITS Impressions Chest X-Ray 08/04/24 08:36 IMPRESSION: Left mid and bilateral lower lung infiltrates Moderate left pleural effusion, increased since 08/2024 Cardiomegaly, aortic atherosclerosis Chest CT 08/05/24 11:26 IMPRESSION: Small left pleural effusion and bilateral areas of atelectasis, most prominent at the base of the left lower lobe Cardiomegaly Labs Labs: Laboratory Results - last 24 hr 08/05/24 08/06/24 16:16 06:17 WBC 11.7 H RBC 5.95 H Hgb 17.2 H Hct 54.6 H MCV 91.8 MCH 28.9 MCHC 31.5 L RDW 13.9 Plt Count 218 MPV 9.8 Immature Gran % (Auto) 0.5 Neut % (Auto) 86.4 H Lymph % (Auto) 5.6 L [place] % (Auto) 7.2 Eos % (Auto) 0.0 Baso % (Auto) 0.3 Lymph # (Auto) 0.66 L [place] # (Auto) 0.8 H Eos # (Auto) 0.0 Baso # (Auto) 0.0 Abs Immat Gran (auto) 0.06 H Absolute Neuts (auto) 10.1 H Absolute Nucleated RBC 0.000 Nucleated RBC % 0.0 Puncture Site Left radial ABG pH 7.442 ABG pCO2 50.4 H ABG pO2 58.9 L ABG PO2/FiO2 Ratio 0.74 ABG HCO3 33.6 H ABG O2 Saturation 91.2 L ABG O2 Content 22.7 H ABG Base Excess 7.7 A-a Gradient 458.6 Oxyhemoglobin 91.5 Total Hemoglobin 17.7 O2 Delivery Device High flow [place] O2 Liters/Min 13.0 FiO2 80 Sodium 136 L Potassium 3.8 Chloride 99 Carbon Dioxide > 40 H Anion Gap BUN 31 H D Creatinine 0.80 Estim Creat Clear Calc 48 Estimated GFR > 60 Glucose 115 H Calcium 8.5 Phosphorus 2.3 L Magnesium 2.4 H C-Reactive Protein 1.7 H NT-Pro-B Natriuret Pep 3090 H Albumin 3.0 L
--- NOTE | 2024-08-06 13:01 | PCSTNOTE ---
Please refer to the Bedside Swallow Evaluation in the EMR. Please note, silent aspiration cannot be ruled out at bedside.
[2024-08-06] MEDS: cefTRIAXone 2 GM/NS 100 ML 2 GM/100 ML BAG IVPB (16:54)
--- NOTE | 2024-08-06 18:28 | PM.IMPN ---
Progress Note: A&P Assessment and Plan (1) Influenza A: Code(s): J10.1 - Influenza due to other identified influenza virus with other respiratory manifestations Status: Acute (2) CHF exacerbation: Code(s): I50.9 - Heart failure, unspecified Status: Acute (3) Acute respiratory distress: Code(s): R06.03 - Acute respiratory distress Status: Inactive (4) Atrial fibrillation: Qualifiers: Atrial fibrillation type: unspecified Qualified Code(s): I48.91 - Unspecified atrial fibrillation Code(s): I48.91 - Unspecified atrial fibrillation Status: Acute (5) Hyperlipidemia: Qualifiers: Hyperlipidemia type: mixed hyperlipidemia Qualified Code(s): E78.2 - Mixed hyperlipidemia Code(s): E78.5 - Hyperlipidemia, unspecified Status: Acute (6) Essential hypertension: Code(s): I10 - Essential (primary) hypertension Status: Acute (7) Parkinson's 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, without mention of fluctuations: Qualifiers: Fluctuating manifestations: without fluctuating manifestations Qualified Code(s): G20.A1 - Parkinson's 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, without mention of fluctuations Code(s): G20.A1 - Parkinson's 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, without mention of fluctuations Status: Acute Plan This is an 83-year-old female presents to the ED with increased generalized weakness fatigue and went to urgent care where she was found to be hypoxic. She also reported cough. On the ED evaluation she was hypoxic 84% on room air was placed on 4 L oxygen via nasal cannula mildly tachycardic. AFib on EKG. Laboratory data showed normal WBC 7.8 hemoglobin of 15.4 platelet 186 Chem panel was unremarkable. BNP was elevated at 3840. Influenza RSV COVID swab tested positive for influenza A. Chest x-ray showed mild pulmonary vascular congestion with small bilateral pleural effusion and adjacent compressive atelectasis. Patient on chronic anticoagulation with apixaban. Patient admitted started on Tamiflu for influenza a. Will check procalcitonin Also treated for acute congestive heart failure. No prior diagnosis of congestive heart failure the she has been worked up for dyspnea on exertion in the past. Cardiology consulted. Echo ordered. IV Lasix b.i.d. repeat E chest x-ray with improved congestion. Because of atrial fibrillation will change DuoNeb to Xopenex and ipratropium. Droplet isolation to continue. Last echo 2021 with EF 70% trace TR RVSP 37 mild LVH Atrial fibrillation with rapid ventricular rate cardiology on board changed to Xopenex continue home metoprolol and Eliquis Hypertension Hyperlipidemia Parkinson's disease Sleep apnea uses oxygen at night Restrictive lung disease with kyphosis plans to get a portable oxygen concentrator in the past per pulmonary note and family. Will need home oxygen evaluation at the time of discharge to evaluate this. Hypothyroidism 08/01/24 - Assuming care. Continue Tamiflu for Influenza. Wean O2 as tolerated. She does have underlying O2 requirements but worse now. Encourage IS use. Consider a component of CHF as well. Remains on IV lasix. Echo ordered. Replace potassium to keep above 4.0. PT/OT ordered. Check CXR in the morning 08/02/24 - CXR showing small left pleural effusion with left basliar and left perihilar airspace disease. Continue Tamiflu to complete a course. Continue to encourage being up. Encourage IS use. No wheezing. Will back down on steroids. Switch to oral steroids in 1-2 days. Labs stable. Heart rate better controlled afterIV Digoxin and adding oral diltiazem. Serum bicarb >40 - change to oral Lasix soon? Continue PT/OT. 08/03/24 - Feels better. AFib under control. O2 requirement was better yesterday but still with considerable O2 requirement and not trending as expected. Echo pending. Will stop steroids after today. Lasix stopped 08/02/24. Continue bronchodilators. Continue Tamiflu. Wean O2 as tolerated. Acetazolamide x 1. May benefit from a 10 day course of Tamiflu. No fevers or elevated WBC but consider 2nd bacterial infection. Check sputum and blood cx. Start abx. Consider CT chest 08/04/24 - Some improvement but still requiring 7-8L. Discussed with pulmonary. Plan for 10 days of Tamiflu treatment. MRSA swab negative so will stop Vanco. Steroids stopped on 08/03. CRP 0.5. CXR showing left mid and lower lung infiltrate. CT chest does not show obvious large effusion. Add CPT to try to open up LLL. Probably atelectasis and less likely PNA 08/05/24 -some mild improvement in her oxygen requirement. Continue IV antibiotics. Continue steroids. Continue Tamiflu for 10 day course. MRSA nasal swab was negative. Vancomycin was stopped. 08/06/24 - Worsening O2 requirement but she feels better. Sputum Cx growing yeast and this will be identified. CRP 1.7. Ordered Echo with bubble to exclude shunt. Consider also CTA chest to exclude PE. Speech therapy felt the patient can swallow safely. Discussed with Pulmonary. DVT prophylaxis on Eliquis Code status do not resuscitate Subjective Date/time seen: 08/06/24 18:28 Interval history: 83yo female with restrctive lung disease, HTN and chronic respiratory failure here for dyspnea. She wears 2L O2 with sleep but family feels she needs it more continuously. Feels well. Up to chair. SOB better. No CP. No pleuritic CP. No n/v. No odynophagia or dysphagia. No mouth sores Exam Narrative: AF 97.5 148/62 75 20 92% 10L Gen - NARD HEENT - no thrush or mouth sores Chest - decreased BS in the bases with carackles. CV -irregularly irregular. S1-S2. Telemetry showing AFib with controlled rate Abd - Soft, NT/ND, Positive BS Ext - No pedal edema Psych - Nml mood and affect Skin - Warm and dry Objective Data Vital Signs Vital Signs: Vital Signs - 24 hr 08/05/24 20:00 08/05/24 20:00 08/05/24 20:00 Temperature Pulse Rate 78 90 Respiratory Rate Blood Pressure Pulse Oximetry 93 Oxygen Delivery High Flow Nasal Cannula Oxygen Flow Rate 08/05/24 22:00 08/05/24 22:21 08/06/24 00:00 Temperature 98.1 F Pulse Rate 81 76 Respiratory Rate 16 Blood Pressure 152/85 H Pulse Oximetry 95 94 Oxygen Delivery High Flow Nasal Cannula Oxygen Flow Rate 08/06/24 04:00 08/06/24 06:00 08/06/24 08:00 Temperature 97.5 F L Pulse Rate 78 63 Respiratory Rate 16 Blood Pressure 146/83 H Pulse Oximetry 95 98 Oxygen Delivery High Flow Nasal Cannula Oxygen Flow Rate 08/06/24 09:09 08/06/24 09:51 08/06/24 09:51 Temperature Pulse Rate 93 100 Respiratory Rate 20 Blood Pressure Pulse Oximetry 98 Oxygen Delivery High Flow Nasal Cannula Oxygen Flow Rate 08/06/24 10:04 08/06/24 14:00 08/06/24 14:31 Temperature Pulse Rate 98 62 Respiratory Rate 20 18 Blood Pressure 148/62 H Pulse Oximetry 92 92 Oxygen Delivery High Flow Nasal Cannula Oxygen Flow Rate 10 08/06/24 14:31 08/06/24 14:43 Temperature Pulse Rate 68 75 Respiratory Rate 20 20 Blood Pressure Pulse Oximetry Oxygen Delivery Oxygen Flow Rate Intake/Output Intake/Output: Intake & Output 08/03/24 08/04/24 08/05/24 08/06/24 23:59 23:59 23:59 23:59 Intake Total 1715 1348 958 640 Output Total 500 1400 1300 600 Balance 1215 -52 -342 40 Meds/Results Medications: Active Medications Generic Name Dose Route Start Last Admin Trade Name Freq PRN Reason Stop Dose Admin Acetaminophen 650 mg 07/30/24 16:59 Acetaminophen 325 Mg Tablet PO Q4H PRN Mild Pain (1-3) or Fever Hydrocodone Bitart/Acetaminophen 1 tab 07/30/24 16:59 Hydrocodone/Acetaminophen (*Crx) 5-325 Mg Tablet PO Q4H PRN Pain Rated 4-6 Apixaban 5 mg 07/31/24 21:00 08/06/24 09:09 Apixaban 5 Mg Tablet PO 5 mg Q12HR PERFECTO Administration Carbidopa/Levodopa 2 tablet 07/31/24 06:00 08/06/24 12:13 Carbidopa/Levodopa 25/100 Mg Tablet BY MOUTH 2 tablet 0600,1200 PERFECTO Administration Carbidopa/Levodopa 1 tablet 07/30/24 22:55 08/05/24 20:00 Carbidopa/Levodopa 25/100 Mg Tablet BY MOUTH 1 tablet HS PERFECTO Administration Diltiazem HCl 120 mg 08/03/24 12:00 08/06/24 09:09 Diltiazem Hcl Cd 120 Mg Cap.24hr PO 120 mg QAM PERFECTO Administration Guaifenesin 1,200 mg 08/05/24 21:00 08/06/24 09:08 Guaifenesin 12 Hr 600 Mg Tabcr PO 1,200 mg Q12HR PERFECTO Administration Ceftriaxone Sodium 2 gm in 100 mls @ 200 mls/hr 08/03/24 18:00 08/06/24 16:54 Rocephin 2 Gm/Ns 100 Ml IVPB 200 mls/hr Q24H PERFECTO Administration Ipratropium [place] 0.5 mg 07/31/24 14:00 08/06/24 14:30 Ipratropium Br 0.02% Inh Soln 0.5 Mg/2.5 Ml Vial INHALATION 0.5 mg Q6HRT PERFECTO Administration Levalbuterol HCl 1.25 mg 07/31/24 14:00 08/06/24 14:30 Levalbuterol Neb 1.25 Mg/3 Ml INHALATION 1.25 mg Q6HRT PERFECTO Administration Levothyroxine Sodium 112 mcg 07/31/24 06:30 08/06/24 05:37 Levothyroxine Sodium 112 Mcg Tablet PO 112 mcg DAILY@0630 PERFECTO Administration Metoprolol Tartrate 100 mg 07/30/24 22:50 08/06/24 09:09 Metoprolol Tartrate 50 Mg Tab PO 100 mg Q12HR PERFECTO Administration Ondansetron HCl 4 mg 07/30/24 16:59 Ondansetron Inj 4 Mg/2 Ml Vial IV PUSH Q4H PRN Nausea Oseltamivir Phosphate 30 mg 08/04/24 21:00 08/06/24 09:11 Oseltamivir Phosphate 30 Mg Capsule PO 08/09/24 21:01 30 mg Q12HR PERFECTO Administration Perflutren Lipid Microsphere 0 ml 08/05/24 15:26 Perflutren Lipid Microspheres 1.5 Ml Vial Diluted To 10 Ml Total Volume IV PUSH 08/08/24 15:26 ONCE PRN adequate visualization Protocol Polyethylene Glycol 17 gm 08/01/24 14:14 08/01/24 14:26 Polyethylene Glycol 3350 17 Gm Powd.Pack PO 17 gm QAM PRN Administration Constipation Rosuvastatin Calcium 5 mg 07/31/24 09:00 08/06/24 09:09 Rosuvastatin 5 Mg Tablet BY MOUTH 5 mg DAILY PERFECTO Administration Radiology Results: ITS Impressions Chest X-Ray 08/04/24 08:36 IMPRESSION: Left mid and bilateral lower lung infiltrates Moderate left pleural effusion, increased since 08/2024 Cardiomegaly, aortic atherosclerosis Chest CT 08/05/24 11:26 IMPRESSION: Small left pleural effusion and bilateral areas of atelectasis, most prominent at the base of the left lower lobe Cardiomegaly Labs Labs: Laboratory Results - last 24 hr 08/06/24 06:17 WBC 11.7 H RBC 5.95 H Hgb 17.2 H Hct 54.6 H MCV 91.8 MCH 28.9 MCHC 31.5 L RDW 13.9 Plt Count 218 MPV 9.8 Immature Gran % (Auto) 0.5 Neut % (Auto) 86.4 H Lymph % (Auto) 5.6 L [place] % (Auto) 7.2 Eos % (Auto) 0.0 Baso % (Auto) 0.3 Lymph # (Auto) 0.66 L [place] # (Auto) 0.8 H Eos # (Auto) 0.0 Baso # (Auto) 0.0 Abs Immat Gran (auto) 0.06 H Absolute Neuts (auto) 10.1 H Absolute Nucleated RBC 0.000 Nucleated RBC % 0.0 Sodium 136 L Potassium 3.8 Chloride 99 Carbon Dioxide > 40 H Anion Gap BUN 31 H D Creatinine 0.80 Estim Creat Clear Calc 48 Estimated GFR > 60 Glucose 115 H Calcium 8.5 Phosphorus 2.3 L Magnesium 2.4 H C-Reactive Protein 1.7 H NT-Pro-B Natriuret Pep 3090 H Albumin 3.0 L
[2024-08-06] MEDS: CARBIDOPA/LEVODOPA 25/100 MG TABLET 1 TABLET BY MOUTH (21:12)
[2024-08-07] VITALS (13 sets, daily range): BP systolic 138–143; BP diastolic 82–83; PULSE 67–105; RESP 16–20; TEMP 36.1–36.3; O2SAT 91–98
[2024-08-07] MEDS: CARBIDOPA/LEVODOPA 25/100 MG TABLET 2 TABLET BY MOUTH ×2 (05:35→12:42)
[2024-08-07] MEDS: LEVOTHYROXINE SODIUM 112 MCG TABLET PO (05:35)
[2024-08-07 07:29] LABS: Hematocrit 52.7 % (37.0-47.0); Hemoglobin 16.7 g/dL (12.0-15.0); Mean Corpuscular HGB Conc 31.7 g/dl (32-36); Mean Corpuscular Volume 91.5 fl (80-100); Mean Platelet Volume 10.2 fl (7.4-10.4); Platelet Count Result 200 k/mm3 (150-375); Red Blood Count 5.76 M/mm3 (4.2-5.4); Red Cell Distribution Width 13.9 % (11.5-14.5); White Blood Count 11.3 K/mm3 (4.5-10.0)
[2024-08-07 07:41] LABS: Blood Urea Nitrogen 25 mg/dL (7-17); Calcium 8.3 mg/dL (8.4-10.2); Chloride 99 mmol/L (98-107); Estimated CRCL calculation 59 ml/min; Estimated Glomerular Filt Rate > 60; Glucose 105 mg/dL (65-110); Phosphorus 2.4 mg/dL (2.5-4.5); Potassium 3.7 mmol/L (3.4-5.0); Sodium 138 mmol/L (137-145)
[2024-08-07] MEDS: guaiFENesin 12 HR 600 MG TABCR 1200 MG PO ×2 (08:50→21:08)
[2024-08-07] MEDS: METOPROLOL TARTRATE 50 MG TAB 100 MG PO ×2 (08:51→21:10)
[2024-08-07] MEDS: OSELTAMIVIR PHOSPHATE 30 MG CAPSULE PO ×2 (08:52→21:10)
[2024-08-07] MEDS: dilTIAZem HCL CD 120 MG CAP.24HR PO (08:52)
[2024-08-07] MEDS: APIXABAN 5 MG TABLET PO ×2 (08:52→21:09)
[2024-08-07] MEDS: ROSUVASTATIN 5 MG TABLET BY MOUTH (08:52)
[2024-08-07 09:19] LABS: Anion Gap 4 mmol/L (4-12); Carbon Dioxide 35 mmol/L (22-30)
--- NOTE | 2024-08-07 09:38 | P.PNPL_ITS ---
Progress Note: A&P Assessment and Plan (1) Influenza A: Code(s): J10.1 - Influenza due to other identified influenza virus with other respiratory manifestations Status: Acute Assessment and Plan: 08/04/23: overall the patient tells me she has a little bit better. She is afebrile. White blood cell count 9.3. Creatinine 1.0. Patient is afebrile. CRP is 0.5. Procalcitonin 0.1. Currently she is on 7 L nasal cannula oxygen with saturations 95%. Chest x-ray today shows an enlarged left lower lobe consolidation consistent with effusion and/or atelectasis. Later in the day CT scan of the chest showed a small left pleural effusion with left lower lobe consolidation with air bronchograms. Plan: Agree with treatment for influenza a pneumonia. Currently she is on day 4 of Tamiflu. She is now off systemic steroids. She was empirically started on vancomycin and ceftriaxone on 08/03/2024 and would continue for now. Goal saturation 90-94%. The patient tells me she improves with levalbuterol and ipratropium nebulizers q.6 hours and will continue. Continue guaifenesin 600 mg p.o. q.12 hours. Continue incentive spirometry and Cornet flutter valve. 08/05/24: Overall the patient states she has a little bit better. She has a moist cough but is unable to bring up any phlegm. Currently she is on 7 L nasal cannula saturations 90%. She is afebrile, creatinine is 1.0. Plan: continue Tamiflu, day 6. Recommend treating for 10 days. MRSA swab negative, vancomycin discontinued. Continue ceftriaxone, day 3. Continue levalbuterol and ipratropium nebulizers q.6 and guaifenesin will increase to 1200 mg twice a day. later in the day patient had worsening oxygenation requiring 13 L nasal cannula. ABG on 13 L 7.44/50/59. 08/06/2024: Patient continues to tell me she does a little bit better each day. She has a dry cough, no phlegm, no hemoptysis. Patient was in the middle of a physical therapy session and had just walked from the her bed to the door and back on 10 L nasal cannula her saturations were 98%. White blood cell count 11.7, creatinine 0.8. BNP 3090 improved from 4430. Plan: Continue Tamiflu, day 7, renally adjusted. Continue ceftriaxone day 4, continue levalbuterol and ipratropium nebulizers q.6 and guaifenesin 1200 twice a day. 08/07/2024: The patient tells me she continues to improve each day. Currently she is on 8 L nasal cannula saturations 96%. She is afebrile. White blood cell count 11.3, creatinine 0.62. she performed Cornet flutter valve with me. She performed incentive spirometry at 600 mL. Plan: Continue Tamiflu, day 8. Continue ceftriaxone, day 5. Continue levalbuterol and ipratropium nebulizers. Continue guaifenesin 1200 twice a day. Goal saturation 90-94%, wean as tolerated. I discussed this with the bedside nurse. Discussed with Dr. Merrill, will follow with you. (2) Hypoxia: Code(s): R09.02 - Hypoxemia Status: Acute Assessment and Plan: At baseline she had dyspnea on exertion and required 2 L oxygen at night and none with rest or with activity. 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 plan: Patient currently on 7 L nasal cannula. Suspect her current hypoxemia is related to influenza pneumonia with a small left pleural effusion and consolidation in the left lower lobe. Continue treatment as above. 08/05/2024: Currently she is on 7 L nasal cannula saturations 90%. Plan: Treatment for influenza pneumonia as above. Will continue Cornet flutter valve. Will add EzPAP. Out of bed to chair as tolerated. 08/06/24: Patient was on 13 L nasal cannula yesterday and today has been decreased to 10 L nasal cannula. Plan: Continue Tamiflu as above. Continue Cornet flutter valve, incentive spirometry which she is doing 600 mL, and EzPAP. Will order echo with bubble study. 08/07/23: Oxygenation slowly improving. She is back to 8 L and right now with a saturation of 96% will try to wean to maintain saturations 90 %. Echo with bubble study pending. Continue Cornet flutter valve, incentive spirometry q.2 hours while awake. The daughter is at the bedside and will try to reinforce this. Continue out of bed and physical therapy as tolerated. Subjective Date/time seen: 08/07/24 09:38 Interval history: Aug 03, 2024 at 22:00 Room 331 NEW: Jing Garcias is 83 years old, admitted with influenza and acute hypoxic respiratory failure. Last office visit w Dr Ramesh was 06/06/23; restrictive impairment with need for O2 2 L w exertion. She did not require a follow up appointment. She never gets a flu vaccination. She was admitted with increased shortness of breath, PCR (+) for influenza A and acute hypercapnic respiratory failure. She feels better now compared to admission. She was started on Tamiflu 75 mg p.o. q.12 hours and IV Solu-Medrol which was discontinued today. She had rapid atrial fibrillation, was treated with diltiazem. She initially required 15 liters/minute, the amount fluctuated on the initial admission date July 31, was down to 7 or 8 L a minute, now stable at 8 L for the last 2 - 3 days. 08/04/23: overall the patient tells me she has a little bit better. She is afebrile. White blood cell count 9.3. Creatinine 1.0. Patient is afebrile. CRP is 0.5. Procalcitonin 0.1. Currently she is on 7 L nasal cannula oxygen with saturations 95%. Chest x-ray today shows an enlarged left lower lobe consolidation consistent with effusion and/or atelectasis. 08/05/24: Overall the patient states she has a little bit better. She has a moist cough but is unable to bring up any phlegm. Currently she is on 7 L nasal cannula saturations 90%. She is afebrile, creatinine is 1.0. later in the day patient had worsening oxygenation requiring 13 L nasal cannula. ABG on 13 L 7.44/50/59. 08/06/2024: Patient continues to tell me she does a little bit better each day. She has a dry cough, no phlegm, no hemoptysis. Patient was in the middle of a physical therapy session and had just walked from the her bed to the door and back on 10 L nasal cannula her saturations were 98%. White blood cell count 11.7, creatinine 0.8. BNP 3090 improved from 4430. 08/07/2024: The patient tells me she continues to improve each day. Currently she is on 8 L nasal cannula saturations 96%. She is afebrile. White blood cell count 11.3, creatinine 0.62. she performed Cornet flutter valve with me. She performed incentive spirometry at 600 mL. DATA: 08/04/24: EXAMINATION: CT diagnostic chest wo con INDICATION: Left lower lobe pneumonia versus effusion COMPARISON: 08/04/2024 portable AP chest FINDINGS: Small left pleural effusion. There is linear atelectasis or scarring of the lingula. There is more prominent left basilar lower lobe atelectasis, minimal dependent right lower lobe atelectasis. Cardiomegaly. There is extensive thoracic aortic calcification including ascending aorta, aortic arch, descending thoracic aorta. No thoracic aortic aneurysm. No hilar or mediastinal mass lesion or adenopathy. No pericardial effusion. Status post cholecystectomy. IMPRESSION: Small left pleural effusion and bilateral areas of atelectasis, most prominent at the base of the left lower lobe Cardiomegaly * MRSA swab negative, influenza A positive, all other PCR are negative, influenza B, RSV, SARS-CoV-2. * 08/03/2024 sodium 137, potassium 4.3, chloride 93, HC03 greater than 40, BUN 60, initially was 31, increased over the next 3 days there was 60, creatinine 0.7 * 07/31/24; ABG; pH 7.42, pCO2 53.3, pO2 73.4, HC03 34.1, saturation 94.8 on high-flow 8 L * 08/02/24 : Impression: Small left pleural effusion with left basilar and left perihilar airspace disease. Correlate for atelectasis/edema versus pneumonia. * 07/30/24 : Central congestive change with probable minimal bibasilar pulmonary edema/atelectatic change. 03/02/2023: This is a pulmonary function test with pre and post-bronchodilator spirometry, plethysmography and diffusing capacity.? The test was performed and results interpreted in accordance with the 2019 and 2005 ATS/ERS Task Force guidelines respectively using the Global Lung Function I nitiative-2012 reference equations. Patient demonstrated good effort and cooperation. Reproducibility criteria were met. The quality of the pre bronchodilator spirometry maneuver was Grade A and post bronchodilator spirometry maneuver was Grade A.? I spoke with the maintenance service technician and the patient required coaching to complete the spirometry and the remainder of the test the patient did well and there were no technical issues measuring the lung volumes. Findings: Spirometry:? The contour the inspiratory and expiratory flow tracing are normal.? The pre bronchodilator FVC is 1.46 L, 56% predicted.? The pre bronchodilator FEV1 is 1.03 L, 52% predicted.? The pre bronchodilator FEV1: FVC ratio 70%.? The post bronchodilator FVC is 1.31 L, representing an 11% decrease.? The post bronchodilator FEV1 is 1.00 L, representing a 3% decrease.? The post bronchodilator FEV1: FVC ratio 76%.? Plethysmography:? The total lung capacity 7.08 L, 136% predicted.? The functional residual capacity is 5.89 L, 196% predicted.? The residual volume is 5.61 L, 228% predicted.? Diffusing capacity:? The diffusing capacity unadjusted for hemoglobin and carboxyhemoglobin is 12.5, 63% predicted.? The diffusing capacity adjusted for alveolar volume is 5.71, 140% predicted.? In comparison to previous pulmonary function testing on 03/23/2021 the post bronchodilator FVC is unchanged from 1.51 L to 1.31 L.? The post bronchodilator FEV1 is decreased from 1.18 L to 1.00 L.? The total lung capacity has increased from 3.44 L to 7.08 L.? The functional residual capacity is increased from 2.16 L to 5.89 L.? The residual volume has increased from 1.90 L to 5.61 L.? The diffusing capacity unadjusted for hemoglobin and carboxyhemoglobin is unchanged from 12.3 to 12.5.? The diffusing capacity adjusted for alveolar volume is unchanged from 5.26 to 5.71. Impression: The spirometry is normal without evidence of an obstructive abnormality. The lung volumes are increased without evidence of a restrictive abnormality. ? The FVC and FEV1 are moderately severely decreased without an obstructive or restrictive abnormality.? This is an abnormal but nonspecific finding.? There is no significant improvement after inhaling a single dose of albuterol.? The total lung capacity, functional residual capacity and residual volume are increased with an increased residual volume: TLC ratio.? This is consistent with hyperinflation. The diffusing capacity unadjusted for hemoglobin and carboxyhemoglobin is mildly decreased and increased when adjusted for alveolar volume.? In comparison to previous pulmonary function testing on 03/23/2021 there has been a greater than anticipated time dependent increase in the total lung capacity, residual volume and functional residual capacity with a greater than anticipated time dependent decrease in the FEV1 with no significant change in the FVC or diffusing capacity.? Clinical correlation is recommended. 03/02/23: The patient has no obstructive abnormality and no restrictive abnormality with hyperinflation that has increased since 03/23/2021. This is a 6 minute walk test using walking aid. Resting room air oxygen saturation measured by pulse oximetry was 94% and heart rate was 64 bpm.? Patient ambulated for 122 meters and oxygen saturation remained 90 to 93%.? Heart rate at the end of the study was 88 bpm. The patient did not qualify for supplemental oxygen at rest or with ambulation. 02/16/2023: Overnight oximetry on 2 L nasal cannula. Recording duration was 1 hour and 34 minutes basal saturation 93.4%. High saturation 98%. Low saturati on 89%. Time with saturation less than or equal to 88% was 0 minutes. Oxygen desaturation index is 10. Continue 2 L nasal cannula at night. 02/02/2023:? This is a follow-up encounter from 10/28/2021 for MAHER and nocturnal hypoxemia. On 10/28/2021:? Patient with MAHER and nocturnal hypoxemia. She is a nonsmoker with no occupational exposures. Patient has no rest SOB and she also requires no oxygen at rest but 2 L with ambulation per home O2 assessment on 03/23/2021. She has a moderately severe restrictive abnormality with a total lung capacity of 67% predicted. She has a CT scan of the chest that demonstrates severe thoracic spondylosis and some kyphosis with no emphysematous or interstitial lung disease. I believed her MAHER and hypoxemia is related to her restrictive lung disease with evidence of kyphosis on her CT scan but no evidence of interstitial lung disease. I suspect there also is a component of deconditioning for her MAHER. Patient has minimal respiratory limitations in her activities of daily living at this time and is currently walking 3/4 to 1 mile 5 days a week and this takes her 45 minutes without oxygen. She has pleased with this progress. Portable oxygen concentrator process was initiated. At this time there is no specific pulmonary follow-up needed. Please refer the patient to us should she have any new issues. 08/11/2022:? Cardiology outpatient visit states some SOB but able to walk outside 1/4 mi or so with only stopping once.? Thinks she might need to see pulmonary again.? Wears O2 at night and naps. 12/15/2022:? Cardiology, Dr. Vazquez, she is still SOB with stairs, ADLs like running vacuum about the same from last visit.? O2 saturation 92% room air at rest.? Complaints of SOB stable.? She does not appear to be in decompensated heart failure.? At rest 93% on room air after 1 lap = 95%.? Two laps = 90%, 3 laps = 90%.? Patient does not qualify for supplemental oxygen with ambulation although she is mildly hypoxic.? I have strongly encouraged her to contact her disability insurance claim examiner again to be seen as soon as possible for further recommendations and management in this regard. This appears to be the explanation of her symptoms in the absence of decompensated heart failure.? Her echo is not suggestive of significant valvular heart disease.? Her AFib is persistent with a reasonably controlled ventricular response.? Patient verbalized understanding. DATA: EXAMINATION:CT diagnostic chest wo con DATE: 04/03/2021 12:41 INDICATION: Other disorders of lung. COMPARISON: Chest CT 03/20/2019, 06/18/2016 FINDINGS: There is mild emphysema. There is mild bronchiectasis in right middle lobe and lingula. A calcified right lung nodule and calcified right hilar and mediastinal lymph nodes are consistent with old granulomatous disease. There is mild atelectasis in the inferior lungs. There is an 8 mm nodule in right lower lobe without change, likely benign. No pleural effusion. The heart size is normal. There are coronary artery calcifications. No pericardial effusion. Calcifications in the spleen are consistent with old granulomatous disease. There are changes of cholecystectomy. 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 There is lucency around the glenoid component with subsidence, consistent with loosening. There is severe thoracic spondylosis. There are changes of vertebroplasty at L1. IMPRESSION: 1. Mild emphysema. 2. 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 03/23/21 PFTs ? This is a pulmonary function test with pre and post-bronchodilator spirometry, plethysmography and diffusing capacity. The test was performed and results interpreted in accordance with the 2019 and 2005 ATS/ERS Task Force guidelines respectively using the Global Lung Function Initiative-2012 reference equations. Patient demonstrated good effort and cooperation. Reproducibility criteria were met. The quality of the pre bronchodilator spirometry maneuver was Grade A and post bronchodilator spirometry maneuver was Grade A. Findings: Spirometry:? The contour of the expiratory flow tracing is that of a witch's hat.? The contour the inspiratory flow tracing is normal.? The pre bronchodilator FVC is 1.54 L, 54% predicted.? The pre bronchodilator FEV1 is 1.13 L, 57% predicted.? The FEV1: FVC ratio 73%.? The post bronchodilator FVC is 1.51 L, representing a 2% decrease.? The post bronchodilator FEV1 is 1.18 L, re presenting a 5% decrease. Plethysmography:? The total lung capacity is 3.44 L, 67% predicted.? The functional residual capacity is 2.16 L, 76% predicted.? The residual volume is 1.90 L, 87% predicted. Diffusing capacity:? The absolute diffusion capacity is 12.3, 60% predicted.? The diffusing capacity corrected for alveolar volume is 5.26, 157% predicted. Impression: There is a moderately severe restrictive ventilatory abnormality. The spirometry is normal without evidence of an obstructive abnormality. There is no significant improvement after inhaling a single dose of albuterol. The ? Absolute diffusion capacity is normal and increased when corrected for alveolar volume. There are no prior studies for comparison. 03/03/2021: Patient had an overnight oximetry on room air that demonstrated a basal saturation of 90.3%.? High saturation 98.0%.? Low saturation 76.0%.? Time with saturation less than or equal to 88% was 63.7 minutes.? I will prescribe 2 L nasal cannula oxygen at night and repeat an overnight oximetry on 2 L nasal cannula. Review of Systems Review of Systems: All systems reviewed & are unremarkable except as noted in HPI and below Constitutional: Constitutional: Reports no additional constitutional complaints Eyes: Eyes: Reports no additional eye complaints ENT: Reports system reviewed and no additional complaints, except as documented Cardiovascular: Cardiovascular: Reports no additional cardiovascular complaints Respiratory: Respiratory: Reports no additional respiratory complaints Gastrointestinal: Gastrointestinal: Reports no additional gastrointestinal complaints Musculoskeletal: Musculoskeletal: Reports no additional musculoskeletal complaints Neurologic: Reports system reviewed and no additional complaints, except as documented Psychiatric: Psychiatric: Reports no additional psychiatric complaints Endocrine: Endocrine: Reports no additional endocrine complaints Hematologic/Lymphatic: Hematologic/Lymphatic: Reports no additional hematologic/lymphatic complaints Allergic/Immunologic: Allergic/Immunologic: Reports no additional allergic/immunologic complaints Exam Const: General: cooperative, healthy appearing and comfortable Orientation/consciousness: oriented to person, oriented to place and oriented to time HENMT: Head: normal to inspection Ears: hearing grossly normal bilaterally Eyes: General: appearance normal, both eyes and all related structures Neck: Neck: normal visual inspection Chest: Chest palpation & inspection: normal inspection of the chest Resp: Effort & Inspection: normal respiratory effort and able to speak in complete sentences Auscultation: crackles (few bases), no rales, no rhonchi, no wheezes and lung sounds not diminished Cardio: Jugular venous distension: no JVD GI: Inspection: normal to inspection Skin: General skin exam: normal color Neuro: General: oriented to person, oriented to place and oriented to time Extrem: General: normal to inspection Psych: Appearance: grossly normal Objective Data Vital Signs Vital Signs: Vital Signs - 24 hr 08/06/24 09:51 08/06/24 09:51 08/06/24 10:04 Temperature Pulse Rate 100 98 Respiratory Rate 20 20 Blood Pressure Pulse Oximetry 98 Oxygen Delivery High Flow Nasal Cannula Oxygen Flow Rate 13 08/06/24 12:00 08/06/24 14:00 08/06/24 14:31 Temperature Pulse Rate 76 62 Respiratory Rate 18 Blood Pressure 148/62 H Pulse Oximetry 92 92 Oxygen Delivery High Flow Nasal Cannula Oxygen Flow Rate 10 08/06/24 14:31 08/06/24 14:43 08/06/24 16:00 Temperature Pulse Rate 68 75 75 Respiratory Rate 20 20 Blood Pressure Pulse Oximetry Oxygen Delivery Oxygen Flow Rate 08/06/24 20:00 08/06/24 21:12 08/06/24 21:45 Temperature Pulse Rate 86 75 80 Respiratory Rate 20 Blood Pressure Pulse Oximetry Oxygen Delivery Oxygen Flow Rate 08/06/24 21:50 08/06/24 22:00 08/06/24 22:03 Temperature 36.4 C L Pulse Rate 81 78 Respiratory Rate 20 20 Blood Pressure 136/80 Pulse Oximetry 92 99 Oxygen Delivery High Flow Nasal Cannula Oxygen Flow Rate 10 08/07/24 00:00 08/07/24 04:00 08/07/24 06:00 Temperature 36.1 C L Pulse Rate 67 78 88 Respiratory Rate 16 Blood Pressure 143/82 H Pulse Oximetry 94 Oxygen Delivery Oxygen Flow Rate 08/07/24 08:51 Temperature Pulse Rate 100 Respiratory Rate Blood Pressure Pulse Oximetry Oxygen Delivery Oxygen Flow Rate Intake/Output Intake/Output: Intake & Output 08/04/24 08/05/24 08/06/24 08/07/24 23:59 23:59 23:59 23:59 Intake Total 4434 269 8381 400 Output Total 1400 1300 600 500 Balance -52 -342 620 -100 Meds/Results Medications: Active Medications Generic Name Dose Route Start Last Admin Trade Name Freq PRN Reason Stop Dose Admin Acetaminophen 650 mg 07/30/24 16:59 Acetaminophen 325 Mg Tablet PO Q4H PRN Mild Pain (1-3) or Fever Hydrocodone Bitart/Acetaminophen 1 tab 07/30/24 16:59 Hydrocodone/Acetaminophen (*Crx) 5-325 Mg Tablet PO Q4H PRN Pain Rated 4-6 Apixaban 5 mg 07/31/24 21:00 08/07/24 08:52 Apixaban 5 Mg Tablet PO 5 mg Q12HR PERFECTO Administration Carbidopa/Levodopa 2 tablet 07/31/24 06:00 08/07/24 05:35 Carbidopa/Levodopa 25/100 Mg Tablet BY MOUTH 2 tablet 0600,1200 PERFECTO Administration Carbidopa/Levodopa 1 tablet 07/30/24 22:55 08/06/24 21:12 Carbidopa/Levodopa 25/100 Mg Tablet BY MOUTH 1 tablet HS PERFECTO Administration Diltiazem HCl 120 mg 08/03/24 12:00 08/07/24 08:52 Diltiazem Hcl Cd 120 Mg Cap.24hr PO 120 mg QAM PERFECTO Administration Guaifenesin 1,200 mg 08/05/24 21:00 08/07/24 08:50 Guaifenesin 12 Hr 600 Mg Tabcr PO 1,200 mg Q12HR PERFECTO Administration Ceftriaxone Sodium 2 gm in 100 mls @ 200 mls/hr 08/03/24 18:00 08/06/24 17:25 Rocephin 2 Gm/Ns 100 Ml IVPB Infused Q24H PERFECTO Infusion Ipratropium [place] 0.5 mg 07/31/24 14:00 08/07/24 05:00 Ipratropium Br 0.02% Inh Soln 0.5 Mg/2.5 Ml Vial INHALATION Not Given Q6HRT PERFECTO Levalbuterol HCl 1.25 mg 07/31/24 14:00 08/07/24 05:00 Levalbuterol Neb 1.25 Mg/3 Ml INHALATION Not Given Q6HRT [facility] Levothyroxine Sodium 112 mcg 07/31/24 06:30 08/07/24 05:35 Levothyroxine Sodium 112 Mcg Tablet PO 112 mcg DAILY@0630 PERFECTO Administration Metoprolol Tartrate 100 mg 07/30/24 22:50 08/07/24 08:51 Metoprolol Tartrate 50 Mg Tab PO 100 mg Q12HR PERFECTO Administration Ondansetron HCl 4 mg 07/30/24 16:59 Ondansetron Inj 4 Mg/2 Ml Vial IV PUSH Q4H PRN Nausea Oseltamivir Phosphate 30 mg 08/04/24 21:00 08/07/24 08:52 Oseltamivir Phosphate 30 Mg Capsule PO 08/09/24 21:01 30 mg Q12HR PERFECTO Administration Perflutren Lipid Microsphere 0 ml 08/05/24 15:26 Perflutren Lipid Microspheres 1.5 Ml Vial Diluted To 10 Ml Total Volume IV PUSH 08/08/24 15:26 ONCE PRN adequate visualization Protocol Polyethylene Glycol 17 gm 08/01/24 14:14 08/01/24 14:26 Polyethylene Glycol 3350 17 Gm Powd.Pack PO 17 gm QAM PRN Administration Constipation Rosuvastatin Calcium 5 mg 07/31/24 09:00 08/07/24 08:52 Rosuvastatin 5 Mg Tablet BY MOUTH 5 mg DAILY PERFECTO Administration Radiology Results: ITS Impressions Chest X-Ray 08/04/24 08:36 IMPRESSION: Left mid and bilateral lower lung infiltrates Moderate left pleural effusion, increased since 08/2024 Cardiomegaly, aortic atherosclerosis Chest CT 08/05/24 11:26 IMPRESSION: Small left pleural effusion and bilateral areas of atelectasis, most prominent at the base of the left lower lobe Cardiomegaly Labs Labs: Laboratory Results - last 24 hr 08/07/24 07:09 WBC 11.3 H RBC 5.76 H Hgb 16.7 H Hct 52.7 H MCV 91.5 MCH 29.0 MCHC 31.7 L RDW 13.9 Plt Count 200 MPV 10.2 Sodium 138 Potassium 3.7 Chloride 99 Carbon Dioxide 35 H Anion Gap 4 BUN 25 H Creatinine 0.62 L Estim Creat Clear Calc 59 Estimated GFR > 60 Glucose 105 Calcium 8.3 L Phosphorus 2.4 L
--- NOTE | 2024-08-07 11:24 | PCRCNOTE ---
Window of time for administration has passed. See next scheduled administration.
[2024-08-07 11:28] LABS: SARS-CoV-2 RNA PCR Negative (Negative)
[2024-08-07] MEDS: LEVALBUTEROL NEB 1.25 MG/3 ML INHALATION (14:13)
[2024-08-07] MEDS: IPRATROPIUM BR 0.02% INH SOLN 0.5 MG/2.5 ML VIAL INHALATION ×2 (14:13→20:59)
--- NOTE | 2024-08-07 17:13 | P.PNIM_ITS ---
Progress Note: A&P Assessment and Plan (1) Influenza A: Code(s): J10.1 - Influenza due to other identified influenza virus with other respiratory manifestations Status: Acute (2) CHF exacerbation: Code(s): I50.9 - Heart failure, unspecified Status: Acute (3) Acute respiratory distress: Code(s): R06.03 - Acute respiratory distress Status: Inactive (4) Atrial fibrillation: Qualifiers: Atrial fibrillation type: unspecified Qualified Code(s): I48.91 - Unspecified atrial fibrillation Code(s): I48.91 - Unspecified atrial fibrillation Status: Acute (5) Hyperlipidemia: Qualifiers: Hyperlipidemia type: mixed hyperlipidemia Qualified Code(s): E78.2 - Mixed hyperlipidemia Code(s): E78.5 - Hyperlipidemia, unspecified Status: Acute (6) Essential hypertension: Code(s): I10 - Essential (primary) hypertension Status: Acute (7) Parkinson's 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, without mention of fluctuations: Qualifiers: Fluctuating manifestations: without fluctuating manifestations Qualified Code(s): G20.A1 - Parkinson's 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, without mention of fluctuations Code(s): G20.A1 - Parkinson's 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, without mention of fluctuations Status: Acute Plan This is an 83-year-old female presents to the ED with increased generalized weakness fatigue and went to urgent care where she was found to be hypoxic. She also reported cough. On the ED evaluation she was hypoxic 84% on room air was placed on 4 L oxygen via nasal cannula mildly tachycardic. AFib on EKG. Laboratory data showed normal WBC 7.8 hemoglobin of 15.4 platelet 186 Chem panel was unremarkable. BNP was elevated at 3840. Influenza RSV COVID swab tested positive for influenza A. Chest x-ray showed mild pulmonary vascular congestion with small bilateral pleural effusion and adjacent compressive atelectasis. Patient on chronic anticoagulation with apixaban. Patient admitted started on Tamiflu for influenza a. Will check procalcitonin Also treated for acute congestive heart failure. No prior diagnosis of congestive heart failure the she has been worked up for dyspnea on exertion in the past. Cardiology consulted. Echo ordered. IV Lasix b.i.d. repeat E chest x-ray with improved congestion. Because of atrial fibrillation will change DuoNeb to Xopenex and ipratropium. Droplet isolation to continue. Last echo 2021 with EF 70% trace TR RVSP 37 mild LVH Atrial fibrillation with rapid ventricular rate cardiology on board changed to Xopenex continue home metoprolol and Eliquis Hypertension Hyperlipidemia Parkinson's disease Sleep apnea uses oxygen at night Restrictive lung disease with kyphosis plans to get a portable oxygen concentrator in the past per pulmonary note and family. Will need home oxygen evaluation at the time of discharge to evaluate this. Hypothyroidism 08/01/24 - Assuming care. Continue Tamiflu for Influenza. Wean O2 as tolerated. She does have underlying O2 requirements but worse now. Encourage IS use. Consider a component of CHF as well. Remains on IV lasix. Echo ordered. Replace potassium to keep above 4.0. PT/OT ordered. Check CXR in the morning 08/02/24 - CXR showing small left pleural effusion with left basliar and left perihilar airspace disease. Continue Tamiflu to complete a course. Continue to encourage being up. Encourage IS use. No wheezing. Will back down on steroids. Switch to oral steroids in 1-2 days. Labs stable. Heart rate better controlled afterIV Digoxin and adding oral diltiazem. Serum bicarb >40 - change to oral Lasix soon? Continue PT/OT. 08/03/24 - Feels better. AFib under control. O2 requirement was better yesterday but still with considerable O2 requirement and not trending as expected. Echo pending. Will stop steroids after today. Lasix stopped 08/02/24. Continue bronchodilators. Continue Tamiflu. Wean O2 as tolerated. Acetazolamide x 1. May benefit from a 10 day course of Tamiflu. No fevers or elevated WBC but consider 2nd bacterial infection. Check sputum and blood cx. Start abx. Consider CT chest 08/04/24 - Some improvement but still requiring 7-8L. Discussed with pulmonary. Plan for 10 days of Tamiflu treatment. MRSA swab negative so will stop Vanco. Steroids stopped on 08/03. CRP 0.5. CXR showing left mid and lower lung infiltrate. CT chest does not show obvious large effusion. Add CPT to try to open up LLL. Probably atelectasis and less likely PNA 08/05/24 -some mild improvement in her oxygen requirement. Continue IV antibiotics. Continue steroids. Continue Tamiflu for 10 day course. MRSA nasal swab was negative. Vancomycin was stopped. 08/06/24 - Worsening O2 requirement but she feels better. Sputum Cx growing yeast and this will be identified. CRP 1.7. Ordered Echo with bubble to exclude shunt. Consider also CTA chest to exclude PE. Speech therapy felt the patient can s wallow safely. Discussed with Pulmonary. 08/07/24 - Echo with bubble negative for shunt. Still with considerable O2 requirement but better at 7L. Repeat COVID test negative. Continue supportive care. If she is able to wean down a few more liters, might be able to get her to a SNF or acute rehab although she is walking 130ft despite excessive O2 requirement. Completing 10 days of Tamiflu. DVT prophylaxis on Eliquis Code status do not resuscitate Subjective Date/time seen: 08/07/24 17:13 Interval history: 83yo female with restrctive lung disease, HTN and chronic respiratory failure here for dyspnea. She wears 2L O2 with sleep but family feels she needs it more continuously. She feels better. Walked to the door a few times today. no CP and denies SOB. Slight cough. +BM Exam Narrative: AF 97.0 143/82 76 20 95% 7L Gen - NARD sitting up in a chair Chest - inspiratory and expiratory rhonchi. nml RR CV -irregularly irregular. S1-S2. Telemetry showing AFib with controlled rate Abd - Soft, NT/ND, Positive BS Ext - No pedal edema Psych - Nml mood and affect Skin - Warm and dry Objective Data Vital Signs Vital Signs: Vital Signs - 24 hr 08/06/24 20:00 08/06/24 21:12 08/06/24 21:45 Temperature Pulse Rate 86 75 80 Respiratory Rate 20 Blood Pressure Pulse Oximetry Oxygen Delivery Oxygen Flow Rate 08/06/24 21:50 08/06/24 22:00 08/06/24 22:03 Temperature 97.5 F L Pulse Rate 81 78 Respiratory Rate 20 20 Blood Pressure 136/80 Pulse Oximetry 92 99 Oxygen Delivery High Flow Nasal Cannula Oxygen Flow Rate 10 08/07/24 00:00 08/07/24 04:00 08/07/24 06:00 Temperature 97.0 F L Pulse Rate 67 78 88 Respiratory Rate 16 Blood Pressure 143/82 H Pulse Oximetry 94 Oxygen Delivery Oxygen Flow Rate 08/07/24 08:00 08/07/24 08:00 08/07/24 08:51 Temperature Pulse Rate 89 100 Respiratory Rate Blood Pressure Pulse Oximetry 98 Oxygen Delivery High Flow Nasal Cannula Oxygen Flow Rate 8 08/07/24 12:00 08/07/24 14:26 08/07/24 14:39 Temperature Pulse Rate 76 72 76 Respiratory Rate 20 20 Blood Pressure Pulse Oximetry Oxygen Delivery Oxygen Flow Rate 08/07/24 14:39 Temperature Pulse Rate Respiratory Rate Blood Pressure Pulse Oximetry 95 Oxygen Delivery High Flow Nasal Cannula Oxygen Flow Rate 7 Intake/Output Intake/Output: Intake & Output 08/04/24 08/05/24 08/06/24 08/07/24 23:59 23:59 23:59 23:59 Intake Total 3425 235 0136 400 Output Total 1400 1300 600 500 Balance -52 -342 620 -100 Meds/Results Medications: Active Medications Generic Name Dose Route Start Last Admin Trade Name Freq PRN Reason Stop Dose Admin Acetaminophen 650 mg 07/30/24 16:59 Acetaminophen 325 Mg Tablet PO Q4H PRN Mild Pain (1-3) or Fever Hydrocodone Bitart/Acetaminophen 1 tab 07/30/24 16:59 Hydrocodone/Acetaminophen (*Crx) 5-325 Mg Tablet PO Q4H PRN Pain Rated 4-6 Apixaban 5 mg 07/31/24 21:00 08/07/24 08:52 Apixaban 5 Mg Tablet PO 5 mg Q12HR PERFECTO Administration Carbidopa/Levodopa 2 tablet 07/31/24 06:00 08/07/24 12:42 Carbidopa/Levodopa 25/100 Mg Tablet BY MOUTH 2 tablet 0600,1200 PERFECTO Administration Carbidopa/Levodopa 1 tablet 07/30/24 22:55 08/06/24 21:12 Carbidopa/Levodopa 25/100 Mg Tablet BY MOUTH 1 tablet HS PERFECTO Administration Diltiazem HCl 120 mg 08/03/24 12:00 08/07/24 08:52 Diltiazem Hcl Cd 120 Mg Cap.24hr PO 120 mg QAM PERFECTO Administration Guaifenesin 1,200 mg 08/05/24 21:00 08/07/24 08:50 Guaifenesin 12 Hr 600 Mg Tabcr PO 1,200 mg Q12HR PERFECTO Administration Ceftriaxone Sodium 2 gm in 100 mls @ 200 mls/hr 08/03/24 18:00 08/06/24 17:25 Rocephin 2 Gm/Ns 100 Ml IVPB Infused Q24H PERFECTO Infusion Ipratropium [place] 0.5 mg 07/31/24 14:00 08/07/24 14:13 Ipratropium Br 0.02% Inh Soln 0.5 Mg/2.5 Ml Vial INHALATION 0.5 mg Q6HRT PERFECTO Administration Levalbuterol HCl 1.25 mg 07/31/24 14:00 08/07/24 14:13 Levalbuterol Neb 1.25 Mg/3 Ml INHALATION 1.25 mg Q6HRT PERFECTO Administration Levothyroxine Sodium 112 mcg 07/31/24 06:30 08/07/24 05:35 Levothyroxine Sodium 112 Mcg Tablet PO 112 mcg DAILY@0630 PERFECTO Administration Metoprolol Tartrate 100 mg 07/30/24 22:50 08/07/24 08:51 Metoprolol Tartrate 50 Mg Tab PO 100 mg Q12HR PERFECTO Administration Ondansetron HCl 4 mg 07/30/24 16:59 Ondansetron Inj 4 Mg/2 Ml Vial IV PUSH Q4H PRN Nausea Oseltamivir Phosphate 30 mg 08/04/24 21:00 08/07/24 08:52 Oseltamivir Phosphate 30 Mg Capsule PO 08/09/24 21:01 30 mg Q12HR PERFECTO Administration Perflutren Lipid Microsphere 0 ml 08/05/24 15:26 Perflutren Lipid Microspheres 1.5 Ml Vial Diluted To 10 Ml Total Volume IV PUSH 08/08/24 15:26 ONCE PRN adequate visualization Protocol Polyethylene Glycol 17 gm 08/01/24 14:14 08/01/24 14:26 Polyethylene Glycol 3350 17 Gm Powd.Pack PO 17 gm QAM PRN Administration Constipation Rosuvastatin Calcium 5 mg 07/31/24 09:00 08/07/24 08:52 Rosuvastatin 5 Mg Tablet BY MOUTH 5 mg DAILY PERFECTO Administration Radiology Results: ITS Impressions Chest X-Ray 08/04/24 08:36 IMPRESSION: Left mid and bilateral lower lung infiltrates Moderate left pleural effusion, increased since 08/2024 Cardiomegaly, aortic atherosclerosis Chest CT 08/05/24 11:26 IMPRESSION: Small left pleural effusion and bilateral areas of atelectasis, most prominent at the base of the left lower lobe Cardiomegaly Labs Labs: Laboratory Results - last 24 hr 08/07/24 08/07/24 07:09 10:35 WBC 11.3 H RBC 5.76 H Hgb 16.7 H Hct 52.7 H MCV 91.5 MCH 29.0 MCHC 31.7 L RDW 13.9 Plt Count 200 MPV 10.2 Sodium 138 Potassium 3.7 Chloride 99 Carbon Dioxide 35 H Anion Gap 4 BUN 25 H Creatinine 0.62 L Estim Creat Clear Calc 59 Estimated GFR > 60 Glucose 105 Calcium 8.3 L Phosphorus 2.4 L SARS-CoV-2 RNA (RT-PCR) Negative
[2024-08-07] MEDS: cefTRIAXone 2 GM/NS 100 ML 2 GM/100 ML BAG IVPB (17:20)
[2024-08-07] MEDS: CARBIDOPA/LEVODOPA 25/100 MG TABLET 1 TABLET BY MOUTH (21:08)
[2024-08-07] MEDS: POTASSIUM/PHOSPHORUS/SODIUM 1.5 GM PACKET 1 PACKET PO (21:09)
[2024-08-08] VITALS (23 sets, daily range): BP systolic 113–135; BP diastolic 58–70; PULSE 70–109; RESP 16–24; TEMP 36.4–36.6; O2SAT 80–100
[2024-08-08] MEDS: LEVALBUTEROL NEB 1.25 MG/3 ML INHALATION ×4 (02:48→17:30)
[2024-08-08] MEDS: IPRATROPIUM BR 0.02% INH SOLN 0.5 MG/2.5 ML VIAL INHALATION ×4 (02:50→17:30)
[2024-08-08] MEDS: LEVOTHYROXINE SODIUM 112 MCG TABLET PO (05:55)
[2024-08-08] MEDS: CARBIDOPA/LEVODOPA 25/100 MG TABLET 2 TABLET BY MOUTH ×2 (05:55→11:28)
[2024-08-08 06:54] LABS: Basophils Absolute Auto 0.1 K/mm3 (0.0-0.1); Basophils Percent Auto 0.5 % (0.2-1.2); Hematocrit 49.8 % (37.0-47.0); Hemoglobin 15.8 g/dL (12.0-15.0); Immature Granulocyte Absolute 0.13 K/mm3 (0.00-0.031); Immature Granulocyte Percent A 1.2 % (0-0.5); Lymphocytes Absolute Auto 1.03 K/mm3 (0.9-3.2); Lymphocytes Percent Auto 9.3 % (18.3-44.2); Mean Corpuscular HGB Conc 31.7 g/dl (32-36); Mean Corpuscular Hemoglobin 29.1 pg (26-34); Mean Corpuscular Volume 91.7 fl (80-100); Mean Platelet Volume 10.7 fl (7.4-10.4); Monocytes Absolute Auto 0.8 K/mm3 (0.1-0.6); Monocytes Percent Auto 7.2 % (2.6-8.5); Neutrophils Absolute Auto 9.1 K/mm3 (1.3-6.7); Neutrophils Percent Auto 81.8 % (45.5-73.1); Platelet Count Result 192 k/mm3 (150-375); Red Blood Count 5.43 M/mm3 (4.2-5.4); Red Cell Distribution Width 13.9 % (11.5-14.5); White Blood Count 11.1 K/mm3 (4.5-10.0)
--- NOTE | 2024-08-08 07:00 | PC.NURSE ---
during morning vital rounds pt saturations were running low in the 80's. at this time we continued to increase oxygen to met pts needs and reached out to respiratory for recommendations. respiratory to room and placed oxygen mask Pt added to cont pulse ox and currently satting in the low 90's, will continue to monitor
[2024-08-08 07:10] LABS: Albumin Level 2.8 g/dL (3.5-5.1); Blood Urea Nitrogen 23 mg/dL (7-17); Calcium 8.2 mg/dL (8.4-10.2); Chloride 100 mmol/L (98-107); Estimated CRCL calculation 61 ml/min; Estimated Glomerular Filt Rate > 60; Glucose 96 mg/dL (65-110); Magnesium 2.1 mg/dL (1.6-2.3); Phosphorus 2.5 mg/dL (2.5-4.5); Potassium 3.8 mmol/L (3.4-5.0); Sodium 137 mmol/L (137-145)
[2024-08-08 07:13] LABS: Anion Gap 2 mmol/L (4-12); Carbon Dioxide 35 mmol/L (22-30)
--- NOTE | 2024-08-08 08:30 | PC.NURSE ---
Breakfast tray at bedside. Hi Flow NC applied at 10L so patient can eat. Daughter at bedside.
--- NOTE | 2024-08-08 09:02 | PM.IMPN ---
Progress Note: A&P Assessment and Plan (1) Influenza A: Code(s): J10.1 - Influenza due to other identified influenza virus with other respiratory manifestations Status: Acute (2) CHF exacerbation: Code(s): I50.9 - Heart failure, unspecified Status: Acute (3) Acute respiratory distress: Code(s): R06.03 - Acute respiratory distress Status: Inactive (4) Atrial fibrillation: Qualifiers: Atrial fibrillation type: unspecified Qualified Code(s): I48.91 - Unspecified atrial fibrillation Code(s): I48.91 - Unspecified atrial fibrillation Status: Acute (5) Hyperlipidemia: Qualifiers: Hyperlipidemia type: mixed hyperlipidemia Qualified Code(s): E78.2 - Mixed hyperlipidemia Code(s): E78.5 - Hyperlipidemia, unspecified Status: Acute (6) Essential hypertension: Code(s): I10 - Essential (primary) hypertension Status: Acute (7) Parkinson's 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, without mention of fluctuations: Qualifiers: Fluctuating manifestations: without fluctuating manifestations Qualified Code(s): G20.A1 - Parkinson's 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, without mention of fluctuations Code(s): G20.A1 - Parkinson's 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, without mention of fluctuations Status: Acute Plan This is an 83-year-old female presents to the ED with increased generalized weakness fatigue and went to urgent care where she was found to be hypoxic. She also reported cough. On the ED evaluation she was hypoxic 84% on room air was placed on 4 L oxygen via nasal cannula mildly tachycardic. AFib on EKG. Laboratory data showed normal WBC 7.8 hemoglobin of 15.4 platelet 186 Chem panel was unremarkable. BNP was elevated at 3840. Influenza RSV COVID swab tested positive for influenza A. Chest x-ray showed mild pulmonary vascular congestion with small bilateral pleural effusion and adjacent compressive atelectasis. Patient on chronic anticoagulation with apixaban. Patient admitted started on Tamiflu for influenza a. Will check procalcitonin Also treated for acute congestive heart failure. No prior diagnosis of congestive heart failure the she has been worked up for dyspnea on exertion in the past. Cardiology consulted. Echo ordered. IV Lasix b.i.d. repeat E chest x-ray with improved congestion. Because of atrial fibrillation will change DuoNeb to Xopenex and ipratropium. Droplet isolation to continue. Last echo 2021 with EF 70% trace TR RVSP 37 mild LVH Atrial fibrillation with rapid ventricular rate cardiology on board changed to Xopenex continue home metoprolol and Eliquis Hypertension Hyperlipidemia Parkinson's disease Sleep apnea uses oxygen at night Restrictive lung disease with kyphosis plans to get a portable oxygen concentrator in the past per pulmonary note and family. Will need home oxygen evaluation at the time of discharge to evaluate this. Hypothyroidism 08/01/24 - Assuming care. Continue Tamiflu for Influenza. Wean O2 as tolerated. She does have underlying O2 requirements but worse now. Encourage IS use. Consider a component of CHF as well. Remains on IV lasix. Echo ordered. Replace potassium to keep above 4.0. PT/OT ordered. Check CXR in the morning 08/02/24 - CXR showing small left pleural effusion with left basliar and left perihilar airspace disease. Continue Tamiflu to complete a course. Continue to encourage being up. Encourage IS use. No wheezing. Will back down on steroids. Switch to oral steroids in 1-2 days. Labs stable. Heart rate better controlled afterIV Digoxin and adding oral diltiazem. Serum bicarb >40 - change to oral Lasix soon? Continue PT/OT. 08/03/24 - Feels better. AFib under control. O2 requirement was better yesterday but still with considerable O2 requirement and not trending as expected. Echo pending. Will stop steroids after today. Lasix stopped 08/02/24. Continue bronchodilators. Continue Tamiflu. Wean O2 as tolerated. Acetazolamide x 1. May benefit from a 10 day course of Tamiflu. No fevers or elevated WBC but consider 2nd bacterial infection. Check sputum and blood cx. Start abx. Consider CT chest 08/04/24 - Some improvement but still requiring 7-8L. Discussed with pulmonary. Plan for 10 days of Tamiflu treatment. MRSA swab negative so will stop Vanco. Steroids stopped on 08/03. CRP 0.5. CXR showing left mid and lower lung infiltrate. CT chest does not show obvious large effusion. Add CPT to try to open up LLL. Probably atelectasis and less likely PNA 08/05/24 -some mild improvement in her oxygen requirement. Continue IV antibiotics. Continue steroids. Continue Tamiflu for 10 day course. MRSA nasal swab was negative. Vancomycin was stopped. 08/06/24 - Worsening O2 requirement but she feels better. Sputum Cx growing yeast and this will be identified. CRP 1.7. Ordered Echo with bubble to exclude shunt. Consider also CTA chest to exclude PE. Speech therapy felt the patient can swallow safely. Discussed with Pulmonary. 08/07/24 - Echo with bubble negative for shunt. Still with considerable O2 requirement but better at 7L. Repeat COVID test negative. Continue supportive care. If she is able to wean down a few more liters, might be able to get her to a SNF or acute rehab although she is walking 130ft despite excessive O2 requirement. Completing 10 days of Tamiflu. 08/08/24: Patient is new need 5 L oxygen via nasal cannular, patient feels dyspnea is improving. Exercise tolerance increase somewhat. Continue current management possible also related to her restrictive lung disease with evidence of kyphosis on her CT scan but no evidence of interstitial lung disease. on 12L POX 92 DVT prophylaxis on Eliquis Code status do not resuscitate Subjective Date/time seen: 08/08/24 09:02 Interval history: I saw exam patient today. Patient feels better today, patient is on 5 L oxygen via nasal cannular. Exercise tolerance increase somewhat. Patient still has significant dyspnea with exertion. Denies abdomen pain nausea vomiting diarrhea Exam Narrative: GENERAL: Ill-appearing, in no acute distress. Well-nourished. - EYES: EOMI. Anicteric. - HENT: Moist mucous membranes. - LUNGS: Coarse breath sound bilateral base - CARDIOVASCULAR: Regular rate and rhythm. No murmur. No JVD. - ABDOMEN: Soft, non-tender and non-distended. No palpable masses. - EXTREMITIES: No edema. Peripheral pulses 2+. Non-tender. - NEUROLOGIC: No focal neurological deficits. CN II-XII grossly intact.General weakness - PSYCHIATRIC: Awake, Alert and oriented x 3. Appropriate mood and affect. - SKIN: No rashes or lesions. Warm. - LYMPH: No cervical lymphadenopathy. Objective Data Vital Signs Vital Signs: Vital Signs - 24 hr 08/07/24 12:00 08/07/24 14:26 08/07/24 14:39 Temperature Pulse Rate 76 72 76 Respiratory Rate 20 20 Blood Pressure Pulse Oximetry Oxygen Delivery Oxygen Flow Rate 08/07/24 14:39 08/07/24 20:00 08/07/24 20:00 Temperature Pulse Rate 78 Respiratory Rate Blood Pressure Pulse Oximetry 95 93 Oxygen Delivery High Flow Nasal Cannula High Flow Nasal Cannula Oxygen Flow Rate 7 8 08/07/24 21:00 08/07/24 21:00 08/07/24 21:09 Temperature Pulse Rate 83 82 Respiratory Rate 20 20 Blood Pressure Pulse Oximetry 91 Oxygen Delivery High Flow Nasal Cannula Oxygen Flow Rate 8 08/07/24 21:10 08/07/24 21:56 08/08/24 00:00 Temperature 97.4 F L Pulse Rate 92 105 H 74 Respiratory Rate 16 Blood Pressure 138/83 Pulse Oximetry 93 Oxygen Delivery Oxygen Flow Rate 08/08/24 02:50 08/08/24 02:50 08/08/24 03:01 Temperature Pulse Rate 83 85 Respiratory Rate 20 20 Blood Pressure Pulse Oximetry 100 Oxygen Delivery High Flow Nasal Cannula Oxygen Flow Rate 8 08/08/24 04:00 08/08/24 06:00 08/08/24 06:28 Temperature 97.8 F Pulse Rate 77 105 H Respiratory Rate 16 Blood Pressure 131/66 Pulse Oximetry 93 80 L Oxygen Delivery High Flow Nasal Cannula Oxygen Flow Rate 8 08/08/24 06:30 08/08/24 06:51 08/08/24 08:00 Temperature Pulse Rate Respiratory Rate 24 H Blood Pressure Pulse Oximetry 87 L 92 92 Oxygen Delivery High Flow Nasal Cannula Simple Face Mask Simple Face Mask Oxygen Flow Rate 13 15 12 Intake/Output Intake/Output: Intake & Output 08/05/24 08/06/24 08/07/24 08/08/24 23:59 23:59 23:59 23:59 Intake Total 958 1220 1777 150 Output Total 4472 675 6077 400 Balance -342 620 477 -250 Meds/Results Medications: Active Medications Generic Name Dose Route Start Last Admin Trade Name Freq PRN Reason Stop Dose Admin Acetaminophen 650 mg 07/30/24 16:59 Acetaminophen 325 Mg Tablet PO Q4H PRN Mild Pain (1-3) or Fever Hydrocodone Bitart/Acetaminophen 1 tab 07/30/24 16:59 Hydrocodone/Acetaminophen (*Crx) 5-325 Mg Tablet PO Q4H PRN Pain Rated 4-6 Apixaban 5 mg 07/31/24 21:00 08/07/24 21:09 Apixaban 5 Mg Tablet PO 5 mg Q12HR PERFECTO Administration Carbidopa/Levodopa 2 tablet 07/31/24 06:00 08/08/24 05:55 Carbidopa/Levodopa 25/100 Mg Tablet BY MOUTH 2 tablet 0600,1200 PERFECTO Administration Carbidopa/Levodopa 1 tablet 07/30/24 22:55 08/07/24 21:08 Carbidopa/Levodopa 25/100 Mg Tablet BY MOUTH 1 tablet HS PERFECTO Administration Diltiazem HCl 120 mg 08/03/24 12:00 08/07/24 08:52 Diltiazem Hcl Cd 120 Mg Cap.24hr PO 120 mg QAM PERFECTO Administration Guaifenesin 1,200 mg 08/05/24 21:00 08/07/24 21:08 Guaifenesin 12 Hr 600 Mg Tabcr PO 1,200 mg Q12HR PERFECTO Administration Ceftriaxone Sodium 2 gm in 100 mls @ 200 mls/hr 08/03/24 18:00 08/07/24 17:20 Rocephin 2 Gm/Ns 100 Ml IVPB 200 mls/hr Q24H PERFECTO Administration Ipratropium [place] 0.5 mg 07/31/24 14:00 08/08/24 02:50 Ipratropium Br 0.02% Inh Soln 0.5 Mg/2.5 Ml Vial INHALATION 0.5 mg Q6HRT PERFECTO Administration Levalbuterol HCl 1.25 mg 07/31/24 14:00 08/08/24 02:48 Levalbuterol Neb 1.25 Mg/3 Ml INHALATION 1.25 mg Q6HRT PERFECTO Administration Levothyroxine Sodium 112 mcg 07/31/24 06:30 08/08/24 05:55 Levothyroxine Sodium 112 Mcg Tablet PO 112 mcg DAILY@0630 PERFECTO Administration Metoprolol Tartrate 100 mg 07/30/24 22:50 08/07/24 21:10 Metoprolol Tartrate 50 Mg Tab PO 100 mg Q12HR PERFECTO Administration Ondansetron HCl 4 mg 07/30/24 16:59 Ondansetron Inj 4 Mg/2 Ml Vial IV PUSH Q4H PRN Nausea Oseltamivir Phosphate 30 mg 08/04/24 21:00 08/07/24 21:10 Oseltamivir Phosphate 30 Mg Capsule PO 08/09/24 21:01 30 mg Q12HR PERFECTO Administration Perflutren Lipid Microsphere 0 ml 08/05/24 15:26 Perflutren Lipid Microspheres 1.5 Ml Vial Diluted To 10 Ml Total Volume IV PUSH 08/08/24 15:26 ONCE PRN adequate visualization Protocol Polyethylene Glycol 17 gm 08/01/24 14:14 08/01/24 14:26 Polyethylene Glycol 3350 17 Gm Powd.Pack PO 17 gm QAM PRN Administration Constipation Rosuvastatin Calcium 5 mg 07/31/24 09:00 08/07/24 08:52 Rosuvastatin 5 Mg Tablet BY MOUTH 5 mg DAILY PERFECTO Administration Radiology Results: ITS Impressions Chest CT 08/05/24 11:26 IMPRESSION: Small left pleural effusion and bilateral areas of atelectasis, most prominent at the base of the left lower lobe Cardiomegaly Chest X-Ray 08/08/24 08:14 Impression: 1: Consolidation of the left mid and lower lung, compatible with pneumonia. 2: Cardiomegaly. 3: Moderate left pleural effusion. Labs Labs: Laboratory Results - last 24 hr 08/07/24 08/07/24 08/08/24 07:09 10:35 06:02 WBC 11.1 H RBC 5.43 H Hgb 15.8 H Hct 49.8 H MCV 91.7 MCH 29.1 MCHC 31.7 L RDW 13.9 Plt Count 192 MPV 10.7 H Immature Gran % (Auto) 1.2 H Neut % (Auto) 81.8 H Lymph % (Auto) 9.3 L [place] % (Auto) 7.2 Eos % (Auto) 0.0 Baso % (Auto) 0.5 Lymph # (Auto) 1.03 [place] # (Auto) 0.8 H Eos # (Auto) 0.0 Baso # (Auto) 0.1 Abs Immat Gran (auto) 0.13 H Absolute Neuts (auto) 9.1 H Absolute Nucleated RBC 0.000 Nucleated RBC % 0.0 Sodium 137 Potassium 3.8 Chloride 100 Carbon Dioxide 35 H 35 H Anion Gap 4 2 L BUN 23 H Creatinine 0.59 L Estim Creat Clear Calc 61 Estimated GFR > 60 Glucose 96 Calcium 8.2 L Phosphorus 2.5 Magnesium 2.1 Albumin 2.8 L SARS-CoV-2 RNA (RT-PCR) Negative
[2024-08-08 09:43] LABS: NT Pro B Type Natriuretic Pept 3690 pg/mL (19.9-100)
[2024-08-08] MEDS: APIXABAN 5 MG TABLET PO ×2 (09:55→20:58)
[2024-08-08] MEDS: guaiFENesin 12 HR 600 MG TABCR 1200 MG PO ×2 (09:55→20:56)
[2024-08-08] MEDS: METOPROLOL TARTRATE 50 MG TAB 100 MG PO ×2 (09:55→20:57)
[2024-08-08] MEDS: OSELTAMIVIR PHOSPHATE 30 MG CAPSULE PO ×2 (09:55→21:00)
[2024-08-08] MEDS: dilTIAZem HCL CD 120 MG CAP.24HR PO (09:56)
[2024-08-08] MEDS: ROSUVASTATIN 5 MG TABLET BY MOUTH (09:56)
--- NOTE | 2024-08-08 10:04 | P.PNPL_ITS ---
Progress Note: A&P Assessment and Plan (1) Influenza A: Code(s): J10.1 - Influenza due to other identified influenza virus with other respiratory manifestations Status: Acute Assessment and Plan: 08/04/23: overall the patient tells me she has a little bit better. She is afebrile. White blood cell count 9.3. Creatinine 1.0. Patient is afebrile. CRP is 0.5. Procalcitonin 0.1. Currently she is on 7 L nasal cannula oxygen with saturations 95%. Chest x-ray today shows an enlarged left lower lobe consolidation consistent with effusion and/or atelectasis. Later in the day CT scan of the chest showed a small left pleural effusion with left lower lobe consolidation with air bronchograms. Plan: Agree with treatment for influenza a pneumonia. Currently she is on day 4 of Tamiflu. She is now off systemic steroids. She was empirically started on vancomycin and ceftriaxone on 08/03/2024 and would continue for now. Goal saturation 90-94%. The patient tells me she improves with levalbuterol and ipratropium nebulizers q.6 hours and will continue. Continue guaifenesin 600 mg p.o. q.12 hours. Continue incentive spirometry and Cornet flutter valve. 08/05/24: Overall the patient states she has a little bit better. She has a moist cough but is unable to bring up any phlegm. Currently she is on 7 L nasal cannula saturations 90%. She is afebrile, creatinine is 1.0. Plan: continue Tamiflu, day 6. Recommend treating for 10 days. MRSA swab negative, vancomycin discontinued. Continue ceftriaxone, day 3. Continue levalbuterol and ipratropium nebulizers q.6 and guaifenesin will increase to 1200 mg twice a day. Later in the day patient had worsening oxygenation requiring 13 L nasal cannula. ABG on 13 L 7.44/50/59. 08/06/2024: Patient continues to tell me she does a little bit better each day. She has a dry cough, no phlegm, no hemoptysis. Patient was in the middle of a physical therapy session and had just walked from the her bed to the door and back on 10 L nasal cannula her saturations were 98%. White blood cell count 11.7, creatinine 0.8. BNP 3090 improved from 4430. Plan: Continue Tamiflu, day 7, renally adjusted. Continue ceftriaxone day 4, continue levalbuterol and ipratropium nebulizers q.6 and guaifenesin 1200 twice a day. 08/07/2024: The patient tells me she continues to improve each day. Currently she is on 8 L nasal cannula saturations 96%. She is afebrile. White blood cell count 11.3, creatinine 0.62. she performed Cornet flutter valve with me. She performed incentive spirometry at 600 mL. Plan: Continue Tamiflu, day 8. Continue ceftriaxone, day 5. Continue levalbuterol and ipratropium nebulizers. Continue guaifenesin 1200 twice a day. Goal saturation 90-94%, wean as tolerated. I discussed this with the bedside nurse. 08/08/2024: Patient had episode of desaturation early in the morning. She required 15 L face mask. I ordered a chest x-ray this morning which shows consolidation in the left lower lobe with no change from 08/04/2024. Today she tells me that she continues to slowly improve. Her cough and phlegm persist but are better. Her white blood cell count is 11.1, creatinine is 0.59. C umulative she is positive 2.7 L since admission. Bubble study was negative. BNP 3690. Plan: Continue Tamiflu, day 9. Continue ceftriaxone, day 6. Continue levalbuterol and ipratropium nebulizers and change to while awake. Continue guaifenesin 1200 twice a day. Goal saturation 90-94%, wean as tolerated. I discussed this with the bedside nurse. I will give Lasix 20 mg IV x1 today. Will follow with you. (2) Hypoxia: Code(s): R09.02 - Hypoxemia Status: Acute Assessment and Plan: At baseline she had dyspnea on exertion and required 2 L oxygen at night and none with rest or with activity. 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 plan: Patient currently on 7 L nasal cannula. Suspect her current hypoxemia is related to influenza pneumonia with a small left pleural effusion and consolidation in the left lower lobe. Continue treatment as above. 08/05/2024: Currently she is on 7 L nasal cannula saturations 90%. Plan: Treatment for influenza pneumonia as above. Will continue Cornet flutter valve. Will add EzPAP. Out of bed to chair as tolerated. 08/06/24: Patient was on 13 L nasal cannula yesterday and today has been decreased to 10 L nasal cannula. Plan: Continue Tamiflu as above. Continue Cornet flutter valve, incentive spirometry which she is doing 600 mL, and EzPAP. Will order echo with bubble study. 08/07/23: Oxygenation slowly improving. She is back to 8 L and right now with a saturation of 96% will try to wean to maintain saturations 90 %. Echo with bubble study pending. Continue Cornet flutter valve, incentive spirometry q.2 hours while awake. The daughter is at the bedside and will try to reinforce this. Continue out of bed and physical therapy as tolerated. 08/08/23: When I enter the room she was on 10 L nasal cannula saturations 99%. I decreased her to 6 L nasal cannula and after 6 minutes her saturations were 97%. I decreased her to 5 L and after 12 minutes her saturation was 97%. Plan: Goal saturation 90-94%. Wean accordingly. I will order overnight oximetry on 6 L tonight. Subjective Date/time seen: 08/08/24 10:04 Interval history: Aug 03, 2024 at 22:00 Room 331 NEW: Jing Garcias is 83 years old, admitted with influenza and acute hypoxic respiratory failure. Last office visit w Dr Ramesh was 06/06/23; restrictive impairment with need for O2 2 L w exertion. She did not require a follow up appointment. She never gets a flu vaccination. She was admitted with increased shortness of breath, PCR (+) for influenza A and acute hypercapnic respiratory failure. She feels better now compared to admission. She was started on Tamiflu 75 mg p.o. q.12 hours and IV Solu-Medrol which was discontinued today. She had rapid atrial fibrillation, was treated with diltiazem. She initially required 15 liters/minute, the amount fluctuated on the initial admission date July 31, was down to 7 or 8 L a minute, now stable at 8 L for the last 2 - 3 days. 08/04/23: overall the patient tells me she has a little bit better. She is afebrile. White blood cell count 9.3. Creatinine 1.0. Patient is afebrile. CRP is 0.5. Procalcitonin 0.1. Currently she is on 7 L nasal cannula oxygen with saturations 95%. Chest x-ray today shows an enlarged left lower lobe consolidation consistent with effusion and/or atelectasis. 08/05/24: Overall the patient states she has a little bit better. She has a moist cough but is unable to bring up any phlegm. Currently she is on 7 L nasal cannula saturations 90%. She is afebrile, creatinine is 1.0. later in the day patient had worsening oxygenation requiring 13 L nasal cannula. ABG on 13 L 7.44/50/59. 08/06/2024: Patient continues to tell me she does a little bit better each day. She has a dry cough, no phlegm, no hemoptysis. Patient was in the middle of a physical therapy session and had just walked from the her bed to the door and back on 10 L nasal cannula her saturations were 98%. White blood cell count 11.7, creatinine 0.8. BNP 3090 improved from 4430. Bubble study was negative. 08/07/2024: The patient tells me she continues to improve each day. Currently she is on 8 L nasal cannula saturations 96%. She is afebrile. White blood cell count 11.3, creatinine 0.62. she performed Cornet flutter valve with me. She performed incentive spirometry at 600 mL. 08/08/2024: Patient had episode of desaturation early in the morning. She required 15 L face mask. I ordered a chest x-ray this morning which shows consolidation in the left lower lobe with no change from 08/04/2024. Today she tells me that she continues to slowly improve. Her cough and phlegm persist but are better. Her white blood cell count is 11.1, creatinine is 0.59. When I enter the room she was on 10 L nasal cannula saturations 99%. I decreased her to 6 L nasal cannula and after 6 minutes her saturations were 97%. I decreased her to 5 L and after 12 minutes her saturation was 97%. Cumulative she is positive 2.7 L since admission. Bubble study was negative. BNP 3690. DATA: 08/06/24: Summary 1. This was a bubble study only. 2. Intact interatrial septum visualized by agitated saline imaging. Negative bubble study. 08/04/24: EXAMINATION: CT diagnostic chest wo con INDICATION: Left lower lobe pneumonia versus effusion COMPARISON: 08/04/2024 portable AP chest FINDINGS: Small left pleural effusion. There is linear atelectasis or scarring of the lingula. There is more prominent left basilar lower lobe atelectasis, minimal dependent right lower lobe atelectasis. Cardiomegaly. There is extensive thoracic aortic calcification including ascending aorta, aortic arch, descending thoracic aorta. No thoracic aortic aneurysm. No hilar or mediastinal mass lesion or adenopathy. No pericardial effusion. Status post cholecystectomy. IMPRESSION: Small left pleural effusion and bilateral areas of atelectasis, most prominent at the base of the left lower lobe Cardiomegaly * MRSA swab negative, influenza A positive, all other PCR are negative, influenza B, RSV, SARS-CoV-2. * 08/03/2024 sodium 137, potassium 4.3, chloride 93, HC03 greater than 40, BUN 60, initially was 31, increased over the next 3 days there was 60, creatinine 0.7 * 07/31/24; ABG; pH 7.42, pCO2 53.3, pO2 73.4, HC03 34.1, saturation 94.8 on high-flow 8 L * 08/02/24 : Impression: Small left pleural effusion with left basilar and left perihilar airspace disease. Correlate for atelectasis/edema versus pneumonia. * 07/30/24 : Central congestive change with probable minimal bibasilar pulmonary edema/atelectatic change. 03/02/2023: This is a pulmonary function test with pre and post-bronchodilator spirometry, plethysmography and diffusing capacity.? The test was performed and results interpreted in accordance with the 2019 and 2005 ATS/ERS Task Force guidelines respectively using the Global Lung Function Initiative-2012 reference equations. Patient demonstrated good effort and cooperation. Reproducibility criteria were met. The quality of the pre bronchodilator spirometry maneuver was Grade A and post bronchodilator spirometry maneuver was Grade A.? I spoke with the plastic surgery technician and the patient required coaching to complete the spirometry and the remainder of the test the patient did well and there were no technical issues measuring the lung volumes. Findings: Spirometry:? The contour the inspiratory and expiratory flow tracing are normal.? The pre bronchodilator FVC is 1.46 L, 56% predicted.? The pre bronchod ilator FEV1 is 1.03 L, 52% predicted.? The pre bronchodilator FEV1: FVC ratio 70%.? The post bronchodilator FVC is 1.31 L, representing an 11% decrease.? The post bronchodilator FEV1 is 1.00 L, representing a 3% decrease.? The post bronchodilator FEV1: FVC ratio 76%.? Plethysmography:? The total lung capacity 7.08 L, 136% predicted.? The functional residual capacity is 5.89 L, 196% predicted.? The residual volume is 5.61 L, 228% predicted.? Diffusing capacity:? The diffusing capacity unadjusted for hemoglobin and carboxyhemoglobin is 12.5, 63% predicted.? The diffusing capacity adjusted for alveolar volume is 5.71, 140% predicted.? In comparison to previous pulmonary function testing on 03/23/2021 the post bronchodilator FVC is unchanged from 1.51 L to 1.31 L.? The post bronchodilator FEV1 is decreased from 1.18 L to 1.00 L.? The total lung capacity has increased from 3.44 L to 7.08 L.? The functional residual capacity is increased from 2.16 L to 5.89 L.? The residual volume has increased from 1.90 L to 5.61 L.? The diffusing capacity unadjusted for hemoglobin and carboxyhemoglobin is unchanged from 12.3 to 12.5.? The diffusing capacity adjusted for alveolar volume is unchanged from 5.26 to 5.71. Impression: The spirometry is normal without evidence of an obstructive abnormality. The lung volumes are increased without evidence of a restrictive abnormality. ? The FVC and FEV1 are moderately severely decreased without an obstructive or restrictive abnormality.? This is an abnormal but nonspecific finding.? There is no significant improvement after inhaling a single dose of albuterol.? The total lung capacity, functional residual capacity and residual volume are increased with an increased residual volume: TLC ratio.? This is consistent with hyperinflation. The diffusing capacity unadjusted for hemoglobin and carboxyhemoglobin is mildly decreased and increased when adjusted for alveolar volume.? In comparison to previous pulmonary function testing on 03/23/2021 there has been a greater than anticipated time dependent increase in the total lung capacity, residual volume and functional residual capacity with a greater than anticipated time dependent decrease in the FEV1 with no significant change in the FVC or diffusing capacity.? Clinical correlation is recommended. 03/02/23: The patient has no obstructive abnormality and no restrictive abnormality with hyperinflation that has increased since 03/23/2021. This is a 6 minute walk test using walking aid. Resting room air oxygen saturation measured by pulse oximetry was 94% and heart rate was 64 bpm.? Patient ambulated for 122 meters and oxygen saturation remained 90 to 93%.? Heart rate at the end of the study was 88 bpm. The patient did not qualify for supplemental oxygen at rest or with ambulation. 02/16/2023: Overnight oximetry on 2 L nasal cannula. Recording duration was 1 hour and 34 minutes basal saturation 93.4%. High saturation 98%. Low saturation 89%. Time with saturation less than or equal to 88% was 0 minutes. Oxygen desaturation index is 10. Continue 2 L nasal cannula at night. 02/02/2023:? This is a follow-up encounter from 10/28/2021 for MAHER and nocturnal hypoxemia. On 10/28/2021:? Patient with MAHER and nocturnal hypoxemia. She is a nonsmoker with no occupational exposures. Patient has no rest SOB and she also requires no oxygen at rest but 2 L with ambulation per home O2 assessment on 03/23/2021. She has a moderately severe restrictive abnormality with a total lung capacity of 67% predicted. She has a CT scan of the chest that demonstrates severe thoracic spondylosis and some kyphosis with no emphysematous or interstitial lung disease. I believed her MAHER and hypoxemia is related to her restrictive lung disease with evidence of kyphosis on her CT scan but no evidence of interstitial lung disease. I suspect there also is a component of deconditioning for her MAHER. Patient has minimal respiratory limitations in her activities of daily living at this time and is currently walking 3/4 to 1 mile 5 days a week and this takes her 45 minutes without oxygen. She has pleased with this progress. Portable oxygen concentrator process was initiated. At this time there is no specific pulmonary follow-up needed. Please refer the patient to us should she have any new issues. 08/11/2022:? Cardiology outpatient visit states some SOB but able to walk outside 1/4 mi or so with only stopping once.? Thinks she might need to see pulmonary again.? Wears O2 at night and naps. 12/15/2022:? Cardiology, Dr. Vazquez, she is still SOB with stairs, ADLs like running vacuum about the same from last visit.? O2 saturation 92% room air at rest.? Complaints of SOB stable.? She does not appear to be in decompensated heart failure.? At rest 93% on room air after 1 lap = 95%.? Two laps = 90%, 3 laps = 90%.? Patient does not qualify for supplemental oxygen with ambulation although she is mildly hypoxic.? I have strongly encouraged her to contact her painting trades worker again to be seen as soon as possible for further recommendations and management in this regard. This appears to be the explanation of her symptoms in the absence of decompensated heart failure.? Her echo is not suggestive of significant valvular heart disease.? Her AFib is persistent with a reasonably controlled ventricular response.? Patient verbalized understanding. DATA: EXAMINATION:CT diagnostic chest wo con DATE: 04/03/2021 12:41 INDICATION: Other disorders of lung. COMPARISON: Chest CT 03/20/2019, 06/18/2016 FINDINGS: There is mild emphysema. There is mild bronchiectasis in right middle lobe and lingula. A calcified right lung nodule and calcified right hilar and mediastinal lymph nodes are consistent with old granulomatous disease. There is mild atelectasis in the inferior lungs. There is an 8 mm nodule in right lower lobe without change, likely benign. No pleural effusion. The heart size is normal. There are coronary artery calcifications. No pericardial effusion. Calcifications in the spleen are consistent with old granulomatous disease. There are changes of cholecystectomy. 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 There is lucency around the glenoid component with subsidence, consistent with loosening. There is severe thoracic spondylosis. There are changes of vertebroplasty at L1. IMPRESSION: 1. Mild emphysema. 2. 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 03/23/21 PFTs ? This is a pulmonary function test with pre and post-bronchodilator spirometry, plethysmography and diffusing capacity. The test was performed and results interpreted in accordance with the 2019 and 2005 ATS/ERS Task Force guidelines respectively using the Global Lung Function Initiative-2012 reference equations. Patient demonstrated good effort and cooperation. Reproducibility criteria were met. The quality of the pre bronchodilator spirometry maneuver was Grade A and post bronchodilator spirometry maneuver was Grade A. Findings: Spirometry:? The contour of the expiratory flow tracing is that of a witch's hat.? The contour the inspiratory flow tracing is normal.? The pre bronchodilator FVC is 1.54 L, 54% predicted.? The pre bronchodilator FEV1 is 1.13 L, 57% predicted.? The FEV1: FVC ratio 73%.? The post bronchodilator FVC is 1.51 L, representing a 2% decrease.? The post bronchodilator FEV1 is 1.18 L, representing a 5% decrease. Plethysmography:? The total lung capacity is 3.44 L, 67% predicted.? The functional residual capacity is 2.16 L, 76% predicted.? The residual volume is 1.90 L, 87% predicted. Diffusing capacity:? The absolute diffusion capacity is 12.3, 60% predicted.? The diffusing capacity corrected for alveolar volume is 5.26, 157% predicted. Impression: There is a moderately severe restrictive ventilatory abnormality. The spirometry is normal without evidence of an obstructive abnormality. There is no significant improvement after inhaling a single dose of albuterol. The ? Absolute diffusion capacity is normal and increased when corrected for alveolar volume. There are no prior studies for comparison. 03/03/2021: Patient had an overnight oximetry on room air that demonstrated a basal saturation of 90.3%.? High saturation 98.0%.? Low saturation 76.0%.? Time with saturation less than or equal to 88% was 63.7 minutes.? I will prescribe 2 L nasal cannula oxygen at night and repeat an overnight oximetry on 2 L nasal cannula. Review of Systems Review of Systems: All systems reviewed & are unremarkable except as noted in HPI and below Constitutional: Constitutional: Reports no additional constitutional complaints Eyes: Eyes: Reports no additional eye complaints ENT: Reports system reviewed and no additional complaints, except as documented Cardiovascular: Cardiovascular: Reports no additional cardiovascular complaints Respiratory: Respiratory: Reports no additional respiratory complaints Gastrointestinal: Gastrointestinal: Reports no additional gastrointestinal complaints Musculoskeletal: Musculoskeletal: Reports no additional musculoskeletal complaints Neurologic: Reports system reviewed and no additional complaints, except as documented Psychiatric: Psychiatric: Reports no additional psychiatric complaints Endocrine: Endocrine: Reports no additional endocrine complaints Hematologic/Lymphatic: Hematologic/Lymphatic: Reports no additional hematologic/lymphatic complaints Allergic/Immunologic: Allergic/Immunologic: Reports no additional allergic/immunologic complaints Exam Const: General: cooperative, healthy appearing and comfortable Orientation/consciousness: oriented to person, oriented to place and oriented to time HENMT: Head: normal to inspection Ears: hearing grossly normal bilaterally Eyes: General: appearance normal, both eyes and all related structures Neck: Neck: normal visual inspection Chest: Chest palpation & inspection: normal inspection of the chest Resp: Effort & Inspection: normal respiratory effort and able to speak in complete sentences Auscultation: crackles (few bases), no rales, no rhonchi, no wheezes and lung sounds not diminished Other: rhonchorous BS improved Cardio: Jugular venous distension: no JVD GI: Inspection: normal to inspection Skin: General skin exam: normal color Neuro: General: oriented to person, oriented to place and oriented to time Extrem: General: normal to inspection Psych: Appearance: grossly normal Objective Data Vital Signs Vital Signs: Vital Signs - 24 hr 08/07/24 12:00 08/07/24 14:26 08/07/24 14:39 Temperature Pulse Rate 76 72 76 Respiratory Rate 20 20 Blood Pressure Pulse Oximetry Oxygen Delivery Oxygen Flow Rate 08/07/24 14:39 08/07/24 20:00 08/07/24 20:00 Temperature Pulse Rate 78 Respiratory Rate Blood Pressure Pulse Oximetry 95 93 Oxygen Delivery High Flow Nasal Cannula High Flow Nasal Cannula Oxygen Flow Rate 7 8 08/07/24 21:00 08/07/24 21:00 08/07/24 21:09 Temperature Pulse Rate 83 82 Respiratory Rate 20 20 Blood Pressure Pulse Oximetry 91 Oxygen Delivery High Flow Nasal Cannula Oxygen Flow Rate 8 08/07/24 21:10 08/07/24 21:56 08/08/24 00:00 Temperature 36.3 C L Pulse Rate 92 105 H 74 Respiratory Rate 16 Blood Pressure 138/83 Pulse Oximetry 93 Oxygen Delivery Oxygen Flow Rate 08/08/24 02:50 08/08/24 02:50 08/08/24 03:01 Temperature Pulse Rate 83 85 Respiratory Rate 20 20 Blood Pressure Pulse Oximetry 100 Oxygen Delivery High Flow Nasal Cannula Oxygen Flow Rate 8 08/08/24 04:00 08/08/24 06:00 08/08/24 06:28 Temperature 36.6 C Pulse Rate 77 105 H Respiratory Rate 16 Blood Pressure 131/66 Pulse Oximetry 93 80 L Oxygen Delivery High Flow Nasal Cannula Oxygen Flow Rate 8 08/08/24 06:30 08/08/24 06:51 08/08/24 08:00 Temperature Pulse Rate Respiratory Rate 24 H Blood Pressure Pulse Oximetry 87 L 92 92 Oxygen Delivery High Flow Nasal Cannula Simple Face Mask Simple Face Mask Oxygen Flow Rate 13 15 12 08/08/24 09:55 08/08/24 09:56 08/08/24 10:02 Temperature Pulse Rate 105 H 109 H 104 H Respiratory Rate 20 20 Blood Pressure Pulse Oximetry Oxygen Delivery Oxygen Flow Rate Intake/Output Intake/Output: Intake & Output 08/05/24 08/06/24 08/07/24 08/08/24 23:59 23:59 23:59 23:59 Intake Total 958 1220 1777 150 Output Total 7887 910 4183 400 Balance -342 620 477 -250 Meds/Results Medications: Active Medications Generic Name Dose Route Start Last Admin Trade Name Freq PRN Reason Stop Dose Admin Acetaminophen 650 mg 07/30/24 16:59 Acetaminophen 325 Mg Tablet PO Q4H PRN Mild Pain (1-3) or Fever Hydrocodone Bitart/Acetaminophen 1 tab 07/30/24 16:59 Hydrocodone/Acetaminophen (*Crx) 5-325 Mg Tablet PO Q4H PRN Pain Rated 4-6 Apixaban 5 mg 07/31/24 21:00 08/08/24 09:55 Apixaban 5 Mg Tablet PO 5 mg Q12HR PERFECTO Administration Carbidopa/Levodopa 2 tablet 07/31/24 06:00 08/08/24 05:55 Carbidopa/Levodopa 25/100 Mg Tablet BY MOUTH 2 tablet 0600,1200 PERFECTO Administration Carbidopa/Levodopa 1 tablet 07/30/24 22:55 08/07/24 21:08 Carbidopa/Levodopa 25/100 Mg Tablet BY MOUTH 1 tablet HS PERFECTO Administration Diltiazem HCl 120 mg 08/03/24 12:00 08/08/24 09:56 Diltiazem Hcl Cd 120 Mg Cap.24hr PO 120 mg QAM PERFECTO Administration Guaifenesin 1,200 mg 08/05/24 21:00 08/08/24 09:55 Guaifenesin 12 Hr 600 Mg Tabcr PO 1,200 mg Q12HR PERFECTO Administration Ceftriaxone Sodium 2 gm in 100 mls @ 200 mls/hr 08/03/24 18:00 08/07/24 17:20 Rocephin 2 Gm/Ns 100 Ml IVPB 200 mls/hr Q24H PERFECTO Administration Ipratropium [place] 0.5 mg 07/31/24 14:00 08/08/24 09:55 Ipratropium Br 0.02% Inh Soln 0.5 Mg/2.5 Ml Vial INHALATION 0.5 mg Q6HRT PERFECTO Administration Levalbuterol HCl 1.25 mg 07/31/24 14:00 08/08/24 09:55 Levalbuterol Neb 1.25 Mg/3 Ml INHALATION 1.25 mg Q6HRT PERFECTO Administration Levothyroxine Sodium 112 mcg 07/31/24 06:30 08/08/24 05:55 Levothyroxine Sodium 112 Mcg Tablet PO 112 mcg DAILY@0630 PERFECTO Administration Metoprolol Tartrate 100 mg 07/30/24 22:50 08/08/24 09:55 Metoprolol Tartrate 50 Mg Tab PO 100 mg Q12HR PERFECTO Administration Ondansetron HCl 4 mg 07/30/24 16:59 Ondansetron Inj 4 Mg/2 Ml Vial IV PUSH Q4H PRN Nausea Oseltamivir Phosphate 30 mg 08/04/24 21:00 08/08/24 09:55 Oseltamivir Phosphate 30 Mg Capsule PO 08/09/24 21:01 30 mg Q12HR PERFECTO Administration Perflutren Lipid Microsphere 0 ml 08/05/24 15:26 Perflutren Lipid Microspheres 1.5 Ml Vial Diluted To 10 Ml Total Volume IV PUSH 08/08/24 15:26 ONCE PRN adequate visualization Protocol Polyethylene Glycol 17 gm 08/01/24 14:14 08/01/24 14:26 Polyethylene Glycol 3350 17 Gm Powd.Pack PO 17 gm QAM PRN Administration Constipation Rosuvastatin Calcium 5 mg 07/31/24 09:00 08/08/24 09:56 Rosuvastatin 5 Mg Tablet BY MOUTH 5 mg DAILY PERFECTO Administration Radiology Results: ITS Impressions Chest CT 08/05/24 11:26 IMPRESSION: Small left pleural effusion and bilateral areas of atelectasis, most prominent at the base of the left lower lobe Cardiomegaly Chest X-Ray 08/08/24 08:14 Impression: 1: Consolidation of the left mid and lower lung, compatible with pneumonia. 2: Cardiomegaly. 3: Moderate left pleural effusion. Labs Labs: Laboratory Results - last 24 hr 08/07/24 08/08/24 10:35 06:02 WBC 11.1 H RBC 5.43 H Hgb 15.8 H Hct 49.8 H MCV 91.7 MCH 29.1 MCHC 31.7 L RDW 13.9 Plt Count 192 MPV 10.7 H Immature Gran % (Auto) 1.2 H Neut % (Auto) 81.8 H Lymph % (Auto) 9.3 L [place] % (Auto) 7.2 Eos % (Auto) 0.0 Baso % (Auto) 0.5 Lymph # (Auto) 1.03 [place] # (Auto) 0.8 H Eos # (Auto) 0.0 Baso # (Auto) 0.1 Abs Immat Gran (auto) 0.13 H Absolute Neuts (auto) 9.1 H Absolute Nucleated RBC 0.000 Nucleated RBC % 0.0 Sodium 137 Potassium 3.8 Chloride 100 Carbon Dioxide 35 H Anion Gap 2 L BUN 23 H Creatinine 0.59 L Estim Creat Clear Calc 61 Estimated GFR > 60 Glucose 96 Calcium 8.2 L Phosphorus 2.5 Magnesium 2.1 NT-Pro-B Natriuret Pep 3690 H Albumin 2.8 L SARS-CoV-2 RNA (RT-PCR) Negative
[2024-08-08] MEDS: FUROSEMIDE INJ 40 MG/4 ML VIAL 20 MG IV PUSH (11:28)
[2024-08-08] MEDS: cefTRIAXone 2 GM/NS 100 ML 2 GM/100 ML BAG IVPB (17:46)
[2024-08-08] MEDS: CARBIDOPA/LEVODOPA 25/100 MG TABLET 1 TABLET BY MOUTH (20:58)
[2024-08-09] VITALS (19 sets, daily range): BP systolic 122–144; BP diastolic 56–78; PULSE 67–112; RESP 14–20; TEMP 36.2–36.8; O2SAT 90–98
[2024-08-09] MEDS: CARBIDOPA/LEVODOPA 25/100 MG TABLET 2 TABLET BY MOUTH ×2 (05:29→13:17)
[2024-08-09] MEDS: LEVOTHYROXINE SODIUM 112 MCG TABLET PO (05:29)
[2024-08-09] MEDS: LEVALBUTEROL NEB 1.25 MG/3 ML INHALATION ×4 (06:50→21:18)
[2024-08-09] MEDS: IPRATROPIUM BR 0.02% INH SOLN 0.5 MG/2.5 ML VIAL INHALATION ×4 (06:50→21:19)
--- NOTE | 2024-08-09 08:45 | PM.IMPN ---
Progress Note: A&P Assessment and Plan (1) Influenza A: Code(s): J10.1 - Influenza due to other identified influenza virus with other respiratory manifestations Status: Acute (2) CHF exacerbation: Code(s): I50.9 - Heart failure, unspecified Status: Acute (3) Acute respiratory distress: Code(s): R06.03 - Acute respiratory distress Status: Inactive (4) Atrial fibrillation: Qualifiers: Atrial fibrillation type: unspecified Qualified Code(s): I48.91 - Unspecified atrial fibrillation Code(s): I48.91 - Unspecified atrial fibrillation Status: Acute (5) Hyperlipidemia: Qualifiers: Hyperlipidemia type: mixed hyperlipidemia Qualified Code(s): E78.2 - Mixed hyperlipidemia Code(s): E78.5 - Hyperlipidemia, unspecified Status: Acute (6) Essential hypertension: Code(s): I10 - Essential (primary) hypertension Status: Acute (7) Parkinson's 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, without mention of fluctuations: Qualifiers: Fluctuating manifestations: without fluctuating manifestations Qualified Code(s): G20.A1 - Parkinson's 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, without mention of fluctuations Code(s): G20.A1 - Parkinson's 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, without mention of fluctuations Status: Acute Plan This is an 83-year-old female presents to the ED with increased generalized weakness fatigue and went to urgent care where she was found to be hypoxic. She also reported cough. On the ED evaluation she was hypoxic 84% on room air was placed on 4 L oxygen via nasal cannula mildly tachycardic. AFib on EKG. Laboratory data showed normal WBC 7.8 hemoglobin of 15.4 platelet 186 Chem panel was unremarkable. BNP was elevated at 3840. Influenza RSV COVID swab tested positive for influenza A. Chest x-ray showed mild pulmonary vascular congestion with small bilateral pleural effusion and adjacent compressive atelectasis. Patient on chronic anticoagulation with apixaban. Patient admitted started on Tamiflu for influenza a. Will check procalcitonin Also treated for acute congestive heart failure. No prior diagnosis of congestive heart failure the she has been worked up for dyspnea on exertion in the past. Cardiology consulted. Echo ordered. IV Lasix b.i.d. repeat E chest x-ray with improved congestion. Because of atrial fibrillation will change DuoNeb to Xopenex and ipratropium. Droplet isolation to continue. Last echo 2021 with EF 70% trace TR RVSP 37 mild LVH Atrial fibrillation with rapid ventricular rate cardiology on board changed to Xopenex continue home metoprolol and Eliquis Hypertension Hyperlipidemia Parkinson's disease Sleep apnea uses oxygen at night Restrictive lung disease with kyphosis plans to get a portable oxygen concentrator in the past per pulmonary note and family. Will need home oxygen evaluation at the time of discharge to evaluate this. Hypothyroidism 08/01/24 - Assuming care. Continue Tamiflu for Influenza. Wean O2 as tolerated. She does have underlying O2 requirements but worse now. Encourage IS use. Consider a component of CHF as well. Remains on IV lasix. Echo ordered. Replace potassium to keep above 4.0. PT/OT ordered. Check CXR in the morning 08/02/24 - CXR showing small left pleural effusion with left basliar and left perihilar airspace disease. Continue Tamiflu to complete a course. Continue to encourage being up. Encourage IS use. No wheezing. Will back down on steroids. Switch to oral steroids in 1-2 days. Labs stable. Heart rate better controlled afterIV Digoxin and adding oral diltiazem. Serum bicarb >40 - change to oral Lasix soon? Continue PT/OT. 08/03/24 - Feels better. AFib under control. O2 requirement was better yesterday but still with considerable O2 requirement and not trending as expected. Echo pending. Will stop steroids after today. Lasix stopped 08/02/24. Continue bronchodilators. Continue Tamiflu. Wean O2 as tolerated. Acetazolamide x 1. May benefit from a 10 day course of Tamiflu. No fevers or elevated WBC but consider 2nd bacterial infection. Check sputum and blood cx. Start abx. Consider CT chest 08/04/24 - Some improvement but still requiring 7-8L. Discussed with pulmonary. Plan for 10 days of Tamiflu treatment. MRSA swab negative so will stop Vanco. Steroids stopped on 08/03. CRP 0.5. CXR showing left mid and lower lung infiltrate. CT chest does not show obvious large effusion. Add CPT to try to open up LLL. Probably atelectasis and less likely PNA 08/05/24 -some mild improvement in her oxygen requirement. Continue IV antibiotics. Continue steroids. Continue Tamiflu for 10 day course. MRSA nasal swab was negative. Vancomycin was stopped. 08/06/24 - Worsening O2 requirement but she feels better. Sputum Cx growing yeast and this will be identified. CRP 1.7. Ordered Echo with bubble to exclude shunt. Consider also CTA chest to exclude PE. Speech therapy felt the patient can swallow safely. Discussed with Pulmonary. 08/07/24 - Echo with bubble negative for shunt. Still with considerable O2 requirement but better at 7L. Repeat COVID test negative. Continue supportive care. If she is able to wean down a few more liters, might be able to get her to a SNF or acute rehab although she is walking 130ft despite excessive O2 requirement. Completing 10 days of Tamiflu. 08/08/24: Patient is new need 5 L oxygen via nasal cannular, patient feels dyspnea is improving. Exercise tolerance increase somewhat. Continue current management 08/09: Appreciate pulmonary consultation, Continue Tamiflu, day 10. Continue ceftriaxone, day 7. Continue levalbuterol and ipratropium nebulizers and change to while awake. Continue guaifenesin 1200 twice a day. Goal saturation 90-94%, wean as tolerated. possible also related to her restrictive lung disease with evidence of kyphosis on her CT scan but no evidence of interstitial lung disease. on 12L POX 92 DVT prophylaxis on Eliquis Code status do not resuscitate May discharge patient in 1-2 days when patient condition continues to improve Subjective Date/time seen: 08/09/24 08:45 Interval history: I saw exam patient today. Patient feels better today, patient is on 5 L oxygen via nasal cannular. Exercise tolerance increase somewhat per physical therapist. Dyspnea is improving. Denies abdomen pain nausea vomiting diarrhea Exam Narrative: GENERAL: Ill-appearing, in no acute distress. Well-nourished. - EYES: EOMI. Anicteric. - HENT: Moist mucous membranes. - LUNGS: Coarse breath sound bilateral base - CARDIOVASCULAR: Regular rate and rhythm. No murmur. No JVD. - ABDOMEN: Soft, non-tender and non-distended. No palpable masses. - EXTREMITIES: No edema. Peripheral pulses 2+. Non-tender. - NEUROLOGIC: No focal neurological deficits. CN II-XII grossly intact.General weakness - PSYCHIATRIC: Awake, Alert and oriented x 3. Appropriate mood and affect. - SKIN: No rashes or lesions. Warm. - LYMPH: No cervical lymphadenopathy. Objective Data Vital Signs Vital Signs: Vital Signs - 24 hr 08/08/24 09:55 08/08/24 09:56 08/08/24 10:02 Temperature Pulse Rate 105 H 109 H 104 H Respiratory Rate 20 20 Blood Pressure Pulse Oximetry Oxygen Delivery Oxygen Flow Rate 08/08/24 11:00 08/08/24 12:00 08/08/24 13:05 Temperature Pulse Rate 88 Respiratory Rate 20 Blood Pressure Pulse Oximetry 97 Oxygen Delivery High Flow Nasal Cannula Oxygen Flow Rate 5 08/08/24 13:22 08/08/24 14:00 08/08/24 16:00 Temperature 97.5 F L Pulse Rate 70 79 Respiratory Rate 20 20 Blood Pressure 135/70 Pulse Oximetry 99 Oxygen Delivery Oxygen Flow Rate 08/08/24 17:52 08/08/24 20:00 08/08/24 20:00 Temperature Pulse Rate 97 Respiratory Rate 20 Blood Pressure Pulse Oximetry 93 Oxygen Delivery High Flow Nasal Cannula Oxygen Flow Rate 7 08/08/24 20:57 08/08/24 22:00 08/08/24 23:40 Temperature 97.7 F Pulse Rate 80 92 72 Respiratory Rate 16 Blood Pressure 113/58 L Pulse Oximetry 90 93 Oxygen Delivery High Flow Nasal Cannula Oxygen Flow Rate 6 08/09/24 00:00 08/09/24 04:00 08/09/24 06:00 Temperature 97.1 F L Pulse Rate 70 67 83 Respiratory Rate 14 Blood Pressure 127/66 Pulse Oximetry 90 Oxygen Delivery Oxygen Flow Rate 08/09/24 06:50 08/09/24 06:50 08/09/24 07:00 Temperature Pulse Rate 78 78 81 Respiratory Rate 18 18 20 Blood Pressure Pulse Oximetry 92 Oxygen Delivery High Flow Nasal Cannula Oxygen Flow Rate 6 Intake/Output Intake/Output: Intake & Output 08/06/24 08/07/24 08/08/24 08/09/24 23:59 23:59 23:59 23:59 Intake Total 1220 1877 1850 400 Output Total 600 1300 1000 350 Balance 620 577 850 50 Meds/Results Medications: Active Medications Generic Name Dose Route Start Last Admin Trade Name Freq PRN Reason Stop Dose Admin Acetaminophen 650 mg 07/30/24 16:59 Acetaminophen 325 Mg Tablet PO Q4H PRN Mild Pain (1-3) or Fever Hydrocodone Bitart/Acetaminophen 1 tab 07/30/24 16:59 Hydrocodone/Acetaminophen (*Crx) 5-325 Mg Tablet PO Q4H PRN Pain Rated 4-6 Apixaban 5 mg 07/31/24 21:00 08/08/24 20:58 Apixaban 5 Mg Tablet PO 5 mg Q12HR PERFECTO Administration Carbidopa/Levodopa 2 tablet 07/31/24 06:00 08/09/24 05:29 Carbidopa/Levodopa 25/100 Mg Tablet BY MOUTH 2 tablet 0600,1200 PERFECTO Administration Carbidopa/Levodopa 1 tablet 07/30/24 22:55 08/08/24 20:58 Carbidopa/Levodopa 25/100 Mg Tablet BY MOUTH 1 tablet HS PERFECTO Administration Diltiazem HCl 120 mg 08/03/24 12:00 08/08/24 09:56 Diltiazem Hcl Cd 120 Mg Cap.24hr PO 120 mg QAM PERFECTO Administration Guaifenesin 1,200 mg 08/05/24 21:00 08/08/24 20:56 Guaifenesin 12 Hr 600 Mg Tabcr PO 1,200 mg Q12HR PERFECTO Administration Ceftriaxone Sodium 2 gm in 100 mls @ 200 mls/hr 08/03/24 18:00 08/08/24 18:11 Rocephin 2 Gm/Ns 100 Ml IVPB 08/09/24 23:59 Infused Q24H PERFECTO Infusion Ipratropium [place] 0.5 mg 08/08/24 12:00 08/09/24 06:50 Ipratropium Br 0.02% Inh Soln 0.5 Mg/2.5 Ml Vial INHALATION 0.5 mg [id number] [facility] Administration Levalbuterol HCl 1.25 mg 08/08/24 12:00 08/09/24 06:50 Levalbuterol Neb 1.25 Mg/3 Ml INHALATION 1.25 mg [id number] [facility] Administration Levothyroxine Sodium 112 mcg 07/31/24 06:30 08/09/24 05:29 Levothyroxine Sodium 112 Mcg Tablet PO 112 mcg DAILY@0630 PERFECTO Administration Metoprolol Tartrate 100 mg 07/30/24 22:50 08/08/24 20:57 Metoprolol Tartrate 50 Mg Tab PO 100 mg Q12HR PERFECTO Administration Miscellaneous Information 1 each 08/08/24 00:01 [place] Needs To Be Renewed Or It Will Automatically Discontinue. XX 09/07/24 00:00 CLARIFY PERFECTO Ondansetron HCl 4 mg 07/30/24 16:59 Ondansetron Inj 4 Mg/2 Ml Vial IV PUSH Q4H PRN Nausea Oseltamivir Phosphate 30 mg 08/04/24 21:00 08/08/24 21:00 Oseltamivir Phosphate 30 Mg Capsule PO 08/09/24 21:01 30 mg Q12HR PERFECTO Administration Polyethylene Glycol 17 gm 08/01/24 14:14 08/01/24 14:26 Polyethylene Glycol 3350 17 Gm Powd.Pack PO 17 gm QAM PRN Administration Constipation Rosuvastatin Calcium 5 mg 07/31/24 09:00 08/08/24 09:56 Rosuvastatin 5 Mg Tablet BY MOUTH 5 mg DAILY PERFECTO Administration Radiology Results: ITS Impressions Chest CT 08/05/24 11:26 IMPRESSION: Small left pleural effusion and bilateral areas of atelectasis, most prominent at the base of the left lower lobe Cardiomegaly Chest X-Ray 08/08/24 08:14 Impression: 1: Consolidation of the left mid and lower lung, compatible with pneumonia. 2: Cardiomegaly. 3: Moderate left pleural effusion. Labs Labs: Laboratory Results - last 24 hr 08/08/24 06:02 NT-Pro-B Natriuret Pep 3690 H
[2024-08-09] MEDS: APIXABAN 5 MG TABLET PO ×2 (09:35→21:39)
[2024-08-09] MEDS: METOPROLOL TARTRATE 50 MG TAB 100 MG PO ×2 (09:35→21:38)
[2024-08-09] MEDS: dilTIAZem HCL CD 120 MG CAP.24HR PO (09:37)
[2024-08-09] MEDS: guaiFENesin 12 HR 600 MG TABCR 1200 MG PO ×2 (09:37→21:39)
[2024-08-09] MEDS: ROSUVASTATIN 5 MG TABLET BY MOUTH (09:37)
[2024-08-09] MEDS: OSELTAMIVIR PHOSPHATE 30 MG CAPSULE PO ×2 (09:40→21:39)
--- NOTE | 2024-08-09 13:01 | P.PNPL_ITS ---
Progress Note: A&P Assessment and Plan (1) Influenza A: Code(s): J10.1 - Influenza due to other identified influenza virus with other respiratory manifestations Status: Acute Assessment and Plan: 08/04/23: overall the patient tells me she has a little bit better. She is afebrile. White blood cell count 9.3. Creatinine 1.0. Patient is afebrile. CRP is 0.5. Procalcitonin 0.1. Currently she is on 7 L nasal cannula oxygen with saturations 95%. Chest x-ray today shows an enlarged left lower lobe consolidation consistent with effusion and/or atelectasis. Later in the day CT scan of the chest showed a small left pleural effusion with left lower lobe consolidation with air bronchograms. Plan: Agree with treatment for influenza a pneumonia. Currently she is on day 4 of Tamiflu. She is now off systemic steroids. She was empirically started on vancomycin and ceftriaxone on 08/03/2024 and would continue for now. Goal saturation 90-94%. The patient tells me she improves with levalbuterol and ipratropium nebulizers q.6 hours and will continue. Continue guaifenesin 600 mg p.o. q.12 hours. Continue incentive spirometry and Cornet flutter valve. 08/05/24: Overall the patient states she has a little bit better. She has a moist cough but is unable to bring up any phlegm. Currently she is on 7 L nasal cannula saturations 90%. She is afebrile, creatinine is 1.0. Plan: continue Tamiflu, day 6. Recommend treating for 10 days. MRSA swab negative, vancomycin discontinued. Continue ceftriaxone, day 3. Continue levalbuterol and ipratropium nebulizers q.6 and guaifenesin will increase to 1200 mg twice a day. Later in the day patient had worsening oxygenation requiring 13 L nasal cannula. ABG on 13 L 7.44/50/59. 08/06/2024: Patient continues to tell me she does a little bit better each day. She has a dry cough, no phlegm, no hemoptysis. Patient was in the middle of a physical therapy session and had just walked from the her bed to the door and back on 10 L nasal cannula her saturations were 98%. White blood cell count 11.7, creatinine 0.8. BNP 3090 improved from 4430. Plan: Continue Tamiflu, day 7, renally adjusted. Continue ceftriaxone day 4, continue levalbuterol and ipratropium nebulizers q.6 and guaifenesin 1200 twice a day. 08/07/2024: The patient tells me she continues to improve each day. Currently she is on 8 L nasal cannula saturations 96%. She is afebrile. White blood cell count 11.3, creatinine 0.62. she performed Cornet flutter valve with me. She performed incentive spirometry at 600 mL. Plan: Continue Tamiflu, day 8. Continue ceftriaxone, day 5. Continue levalbuterol and ipratropium nebulizers. Continue guaifenesin 1200 twice a day. Goal saturation 90-94%, wean as tolerated. I discussed this with the bedside nurse. 08/08/2024: Patient had episode of desaturation early in the morning. She required 15 L face mask. I ordered a chest x-ray this morning which shows consolidation in the left lower lobe with no change from 08/04/2024. Today she tells me that she continues to slowly improve. Her cough and phlegm persist but are better. Her white blood cell count is 11.1, creatinine is 0.59. C umulative she is positive 2.7 L since admission. Bubble study was negative. BNP 3690. Plan: Continue Tamiflu, day 9. Continue ceftriaxone, day 6. Continue levalbuterol and ipratropium nebulizers and change to while awake. Continue guaifenesin 1200 twice a day. Goal saturation 90-94%, wean as tolerated. I discussed this with the bedside nurse. I will give Lasix 20 mg IV x1 today. 08/09/24: Patient has been stable since yesterday morning. She states she is a little better. She is debilitated but she is doing some walking. She has a dry cough. She is afebrile. Currently she is on 6 L nasal cannula saturations 92%. Patient had an overnight oximetry on 6 L with recording duration 5 hours and 21 minutes. Average saturation 92%. Low saturation 87%. Time with saturation le ss than or equal to 88% was 6 minutes. Oxygen desaturation index 2.3. She will finish day 10 of Tamiflu and day 7 of ceftriaxone today. Plan: Last day of Tamiflu, day 10. Last day of ceftriaxone day 7. Continue levalbuterol and ipratropium nebulizers. I will give 40 of Lasix today. Discussed with Dr. Cook, will follow with you. (2) Hypoxia: Code(s): R09.02 - Hypoxemia Status: Acute Assessment and Plan: At baseline she had dyspnea on exertion and required 2 L oxygen at night and none with rest or with activity. 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 plan: Patient currently on 7 L nasal cannula. Suspect her current hypoxemia is related to influenza pneumonia with a small left pleural effusion and consolidation in the left lower lobe. Continue treatment as above. 08/05/2024: Currently she is on 7 L nasal cannula saturations 90%. Plan: Treatment for influenza pneumonia as above. Will continue Cornet flutter valve. Will add EzPAP. Out of bed to chair as tolerated. 08/06/24: Patient was on 13 L nasal cannula yesterday and today has been decreased to 10 L nasal cannula. Plan: Continue Tamiflu as above. Continue Cornet flutter valve, incentive spirometry which she is doing 600 mL, and EzPAP. Will order echo with bubble study. 08/07/23: Oxygenation slowly improving. She is back to 8 L and right now with a saturation of 96% will try to wean to maintain saturations 90 %. Echo with bubble study pending. Continue Cornet flutter valve, incentive spirometry q.2 hours while awake. The daughter is at the bedside and will try to reinforce this. Continue out of bed and physical therapy as tolerated. 08/08/23: When I enter the room she was on 10 L nasal cannula saturations 99%. I decreased her to 6 L nasal cannula and after 6 minutes her saturations were 97%. I decreased her to 5 L and after 12 minutes her saturation was 97%. Plan: Goal saturation 90-94%. Wean accordingly. I will order overnight oximetry on 6 L tonight. 08/09/24: Patient had an overnight oximetry on 6 L with recording duration 5 hours and 21 minutes. Average saturation 92%. Low saturation 87%. Time with saturation less than or equal to 88% was 6 minutes. Oxygen desaturation index 2.3. Plan: I will repeat overnight oximetry on 7 L. Subjective Date/time seen: 08/09/24 13:01 Interval history: Aug 03, 2024 at 22:00 Room 331 NEW: Jing Garcias is 83 years old, admitted with influenza and acute hypoxic respiratory failure. Last office visit w Dr Ramesh was 06/06/23; restrictive impairment with need for O2 2 L w exertion. She did not require a follow up appointment. She never gets a flu vaccination. She was admitted with increased shortness of breath, PCR (+) for influenza A and acute hypercapnic respiratory failure. She feels better now compared to admission. She was started on Tamiflu 75 mg p.o. q.12 hours and IV Solu-Medrol which was discontinued today. She had rapid atrial fibrillation, was treated with diltiazem. She initially required 15 liters/minute, the amount fluctuated on the initial admission date July 31, was down to 7 or 8 L a minute, now stable at 8 L for the last 2 - 3 days. 08/04/23: overall the patient tells me she has a little bit better. She is afebrile. White blood cell count 9.3. Creatinine 1.0. Patient is afebrile. CRP is 0.5. Procalcitonin 0.1. Currently she is on 7 L nasal cannula oxygen with saturations 95%. Chest x-ray today shows an enlarged left lower lobe consolidation consistent with effusion and/or atelectasis. 08/05/24: Overall the patient states she has a little bit better. She has a moist cough but is unable to bring up any phlegm. Currently she is on 7 L nasal cannula saturations 90%. She is afebrile, creatinine is 1.0. later in the day patient had worsening oxygenation requiring 13 L nasal cannula. ABG on 13 L 7.44/50/59. 08/06/2024: Patient continues to tell me she does a little bit better each day. She has a dry cough, no phlegm, no hemoptysis. Patient was in the middle of a physical therapy session and had just walked from the her bed to the door and back on 10 L nasal cannula her saturations were 98%. White blood cell count 11.7, creatinine 0.8. BNP 3090 improved from 4430. Bubble study was negative. 08/07/2024: The patient tells me she continues to improve each day. Currently she is on 8 L nasal cannula saturations 96%. She is afebrile. White blood cell count 11.3, creatinine 0.62. she performed Cornet flutter valve with me. She performed incentive spirometry at 600 mL. 08/08/2024: Patient had episode of desaturation early in the morning. She required 15 L face mask. I ordered a chest x-ray this morning which shows consolidation in the left lower lobe with no change from 08/04/2024. Today she tells me that she continues to slowly improve. Her cough and phlegm persist but are better. Her white blood cell count is 11.1, creatinine is 0.59. When I enter the room she was on 10 L nasal cannula saturations 99%. I decreased her to 6 L nasal cannula and after 6 minutes her saturations were 97%. I decreased her to 5 L and after 12 minutes her saturation was 97%. Cumulative she is positive 2.7 L since admission. Bubble study was negative. BNP 3690. 08/09/24: Patient has been stable since yesterday morning. She states she is a little better. She is debilitated but she is doing some walking. She has a dry cough. She is afebrile. Currently she is on 6 L nasal cannula saturations 92%. Patient had an overnight oximetry on 6 L with recording duration 5 hours and 21 minutes. Average saturation 92%. Low saturation 87%. Time with saturation less than or equal to 88% was 6 minutes. Oxygen desaturation index 2.3. She will finish day 10 of Tamiflu and day 7 of ceftriaxone today. DATA: 08/06/24: Summary 1. This was a bubble study only. 2. Intact interatrial septum visualized by agitated saline imaging. Negative bubble study. 08/04/24: EXAMINATION: CT diagnostic chest wo con INDICATION: Left lower lobe pneumonia versus effusion COMPARISON: 08/04/2024 portable AP chest FINDINGS: Small left pleural effusion. There is linear atelectasis or scarring of the lingula. There is more prominent left basilar lower lobe atelectasis, minimal dependent right lower lobe atelectasis. Cardiomegaly. There is extensive thoracic aortic calcification including ascending aorta, aortic arch, descending thoracic aorta. No thoracic aortic aneurysm. No hilar or mediastinal mass lesion or adenopathy. No pericardial effusion. Status post cholecystectomy. IMPRESSION: Small left pleural effusion and bilateral areas of atelectasis, most prominent at the base of the left lower lobe Cardiomegaly * MRSA swab negative, influenza A positive, all other PCR are negative, influenza B, RSV, SARS-CoV-2. * 08/03/2024 sodium 137, potassium 4.3, chloride 93, HC03 greater than 40, BUN 60, initially was 31, increased over the next 3 days there was 60, creatinine 0.7 * 07/31/24; ABG; pH 7.42, pCO2 53.3, pO2 73.4, HC03 34.1, saturation 94.8 on high-flow 8 L * 08/02/24 : Impression: Small left pleural effusion with left basilar and left perihilar airspace disease. Correlate for atelectasis/edema versus pneumonia. * 07/30/24 : Central congestive change with probable minimal bibasilar pulmonary edema/atelectatic change. 03/02/2023: This is a pulmonary function test with pre and post-bronchodilator spirometry, plethysmography and diffusing capacity.? The test was performed and results interpreted in accordance with the 2019 and 2005 ATS/ERS Task Force guidelines respectively using the Global Lung Function Initiative-2012 reference equations. Patient demonstrated good effort and cooperation. Reproducibility criteria were met. The quality of the pre bronchodilator spirometry maneuver was Grade A and post bronchodilator spirometry maneuver was Grade A.? I spoke with the motion picture camera lens technician and the patient required coaching to complete the spirometry and the remainder of the test the patient did well and there were no technical issues measuring the lung volumes. Findings: Spirometry:? The contour the inspiratory and expiratory flow tracing are normal.? The pre bronchodilator FVC is 1.46 L, 56% predicted.? The pre bronchodilator FEV1 is 1.03 L, 52% predicted.? The pre bronchodilator FEV1: FVC ratio 70%.? The post bronchodilator FVC is 1.31 L, representing an 11% decrease.? The post bronchodilator FEV1 is 1.00 L, representing a 3% decrease.? The post bronchodilator FEV1: FVC ratio 76%.? Plethysmography:? The total lung capacity 7.08 L, 136% predicted.? The functional residual capacity is 5.89 L, 196% predicted.? The residual volume is 5.61 L, 228% predicted.? Diffusing capacity:? The diffusing capacity unadjusted for hemoglobin and carboxyhemoglobin is 12.5, 63% predicted.? The diffusing capacity adjusted for alveolar volume is 5.71, 140% predicted.? In comparison to previous pulmonary function testing on 03/23/2021 the post bronchodilator FVC is unchanged from 1.51 L to 1.31 L.? The post bronchodilator FEV1 is decreased from 1.18 L to 1.00 L.? The total lung capacity has increased from 3.44 L to 7.08 L.? The functional residual capacity is increased from 2.16 L to 5.89 L.? The residual volume has increased from 1.90 L to 5.61 L.? The diffusing capacity unadjusted for hemoglobin and carboxyhemoglobin is unchanged from 12.3 to 12.5.? The diffusing capacity adjusted for alveolar volume is unchanged from 5.26 to 5.71. Impression: The spirometry is normal without evidence of an obstructive abnormality. The lung volumes are increased without evidence of a restrictive abnormality. ? The FVC and FEV1 are moderately severely decreased without an obstructive or restrictive abnormality.? This is an abnormal but nonspecific finding.? There is no significant improvement after inhaling a single dose of albuterol.? The total lung capacity, functional residual capacity and residual volume are increased with an increased residual volume: TLC ratio.? This is consistent with hyperinflation. The diffusing capacity unadjusted for hemoglobin and carboxyhemoglobin is mildly decreased and increased when adjusted for alveolar volume.? In comparison to previous pulmonary function testing on 03/23/2021 there has been a greater than anticipated time dependent increase in the total lung capacity, residual volume and functional residual capacity with a greater than anticipated time dependent decrease in the FEV1 with no significant change in the FVC or diffusing capacity.? Clinical correlation is recommended. 03/02/23: The patient has no obstructive abnormality and no restrictive abnormality with hyperinflation that has increased since 03/23/2021. This is a 6 minute walk test using walking aid. Resting room air oxygen saturation measured by pulse oximetry was 94% and heart rate was 64 bpm.? Patient ambulated for 122 meters and oxygen saturation remained 90 to 93%.? Heart rate at the end of the study was 88 bpm. The patient did not qualify for supplemental oxygen at rest or with ambulation. 02/16/2023: Overnight oximetry on 2 L nasal cannula. Recording duration was 1 hour and 34 minutes basal saturation 93.4%. High saturation 98%. Low saturation 89%. Time with saturation less than or equal to 88% was 0 minutes. Oxygen desaturation index is 10. Continue 2 L nasal cannula at night. 02/02/2023:? This is a follow-up encounter from 10/28/2021 for MAHER and nocturnal hypoxemia. On 10/28/2021:? Patient with MAHER and nocturnal hypoxemia. She is a nonsmoker with no occupational exposures. Patient has no rest SOB and she also requires no oxygen at rest but 2 L with ambulation per home O2 assessment on 03/23/2021. She has a moderately severe restrictive abnormality with a total lung capacity of 67% predicted. She has a CT scan of the chest that demonstrates severe thoracic spondylosis and some kyphosis with no emphysematous or interstitial lung disease. I believed her MAHER and hypoxemia is related to her restrictive lung disease with evidence of kyphosis on her CT scan but no evidence of interstitial lung disease. I suspect there also is a component of deconditioning for her MAHER. Patient has minimal respiratory limitations in her activities of daily living at this time and is currently walking 3/4 to 1 mile 5 days a week and this takes her 45 minutes without oxygen. She has pleased with this progress. Portable oxygen concentrator process was initiated. At this time there is no specific pulmonary follow-up needed. Please refer the patient to us should she have any new issues. 08/11/2022:? Cardiology outpatient visit states some SOB but able to walk outside 1/4 mi or so with only stopping once.? Thinks she might need to see pulmonary again.? Wears O2 at night and naps. 12/15/2022:? Cardiology, Dr. Vazquez, she is still SOB with stairs, ADLs like running vacuum about the same from last visit.? O2 saturation 92% room air at rest.? Complaints of SOB stable.? She does not appear to be in decompensated heart failure.? At rest 93% on room air after 1 lap = 95%.? Two laps = 90%, 3 laps = 90%.? Patient does not qualify for supplemental oxygen with ambulation although she is mildly hypoxic.? I have strongly encouraged her to contact her jewel bearing driller again to be seen as soon as possible for further recommendations and management in this regard. This appears to be the explanation of her symptoms in the absence of decompensated heart failure.? Her echo is not suggestive of significant valvular heart disease.? Her AFib is persistent with a reasonably controlled ventricular response.? Patient verbalized understanding. DATA: EXAMINATION:CT diagnostic chest wo con DATE: 04/03/2021 12:41 INDICATION: Other disorders of lung. COMPARISON: Chest CT 03/20/2019, 06/18/2016 FINDINGS: There is mild emphysema. There is mild bronchiectasis in right middle lobe and lingula. A calcified right lung nodule and calcified right hilar and mediastinal lymph nodes are consistent with old granulomatous disease. There is mild atelectasis in the inferior lungs. There is an 8 mm nodule in right lower lobe without change, likely benign. No pleural effusion. The heart size is normal. There are coronary artery calcifications. No pericardial effusion. Calcifications in the spleen are consistent with old granulomatous disease. There are changes of cholecystectomy. 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 There is lucency around the glenoid component with subsidence, consistent with loosening. There is severe thoracic spondylosis. There are changes of vertebroplasty at L1. IMPRESSION: 1. Mild emphysema. 2. 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 03/23/21 PFTs ? This is a pulmonary function test with pre and post-bronchodilator spirometry, plethysmography and diffusing capacity. The test was performed and results interpreted in accordance with the 2019 and 2005 ATS/ERS Task Force guidelines respectively using the Global Lung Function Initiative-2012 reference equations. Patient demonstrated good effort and cooperation. Reproducibility criteria were met. The quality of the pre bronchodilator spirometry maneuver was Grade A and post bronchodilator spirometry maneuver was Grade A. Findings: Spirometry:? The contour of the expiratory flow tracing is that of a witch's hat.? The contour the inspiratory flow tracing is normal.? The pre bronchodilator FVC is 1.54 L, 54% predicted.? The pre bronchodilator FEV1 is 1.13 L, 57% predicted.? The FEV1: FVC ratio 73%.? The post bronchodilator FVC is 1.51 L, representing a 2% decrease.? The post bronchodilator FEV1 is 1.18 L, representing a 5% decrease. Plethysmography:? The total lung capacity is 3.44 L, 67% predicted.? The functional residual capacity is 2.16 L, 76% predicted.? The residual volume is 1.90 L, 87% predicted. Diffusing capacity:? The absolute diffusion capacity is 12.3, 60% predicted.? The diffusing capacity corrected for alveolar volume is 5.26, 157% predicted. Impression: There is a moderately severe restrictive ventilatory abnormality. The spirometry is normal without evidence of an obstructive abnormality. There is no significant improvement after inhaling a single dose of albuterol. The ? Absolute diffusion capacity is normal and increased when corrected for alveolar volume. There are no prior studies for comparison. 03/03/2021: Patient had an overnight oximetry on room air that demonstrated a basal saturation of 90.3%.? High saturation 98.0%.? Low saturation 76.0%.? Time with saturation less than or equal to 88% was 63.7 minutes.? I will prescribe 2 L nasal cannula oxygen at night and repeat an overnight oximetry on 2 L nasal cannula. Review of Systems Review of Systems: All systems reviewed & are unremarkable except as noted in HPI and below Constitutional: Constitutional: Reports no additional constitutional complaints Eyes: Eyes: Reports no additional eye complaints ENT: Reports system reviewed and no additional complaints, except as documented Cardiovascular: Cardiovascular: Reports no additional cardiovascular complaints Respiratory: Respiratory: Reports no additional respiratory complaints Gastrointestinal: Gastrointestinal: Reports no additional gastrointestinal complaints Musculoskeletal: Musculoskeletal: Reports no additional musculoskeletal complaints Neurologic: Reports system reviewed and no additional complaints, except as documented Psychiatric: Psychiatric: Reports no additional psychiatric complaints Endocrine: Endocrine: Reports no additional endocrine complaints Hematologic/Lymphatic: Hematologic/Lymphatic: Reports no additional hematologic/lymphatic complaints Allergic/Immunologic: Allergic/Immunologic: Reports no additional allergic/immunologic complaints Exam Const: General: cooperative, healthy appearing and comfortable Orientation/consciousness: oriented to person, oriented to place and oriented to time HENMT: Head: normal to inspection Ears: hearing grossly normal bilaterally Eyes: General: appearance normal, both eyes and all related structures Neck: Neck: normal visual inspection Chest: Chest palpation & inspection: normal inspection of the chest Resp: Effort & Inspection: normal respiratory effort and able to speak in complete sentences Auscultation: crackles (few bases), no rales, no rhonchi, no wheezes and lung sounds not diminished Other: rhonchorous BS improved Cardio: Jugular venous distension: no JVD GI: Inspection: normal to inspection Skin: General skin exam: normal color Neuro: General: oriented to person, oriented to place and oriented to time Extrem: General: normal to inspection Psych: Appearance: grossly normal Objective Data Vital Signs Vital Signs: Vital Signs - 24 hr 08/08/24 13:05 08/08/24 13:22 08/08/24 14:00 Temperature 36.4 C L Pulse Rate 70 Respiratory Rate 20 20 20 Blood Pressure 135/70 Pulse Oximetry 99 Oxygen Delivery Oxygen Flow Rate 08/08/24 16:00 08/08/24 17:52 08/08/24 20:00 Temperature Pulse Rate 79 Respiratory Rate 20 Blood Pressure Pulse Oximetry 93 Oxygen Delivery High Flow Nasal Cannula Oxygen Flow Rate 7 08/08/24 20:00 08/08/24 20:57 08/08/24 22:00 Temperature 36.5 C Pulse Rate 97 80 92 Respiratory Rate 16 Blood Pressure 113/58 L Pulse Oximetry 90 Oxygen Delivery Oxygen Flow Rate 08/08/24 23:40 08/09/24 00:00 08/09/24 04:00 Temperature Pulse Rate 72 70 67 Respiratory Rate Blood Pressure Pulse Oximetry 93 Oxygen Delivery High Flow Nasal Cannula Oxygen Flow Rate 6 08/09/24 06:00 08/09/24 06:50 08/09/24 06:50 Temperature 36.2 C L Pulse Rate 83 78 78 Respiratory Rate 14 18 18 Blood Pressure 127/66 Pulse Oximetry 90 92 Oxygen Delivery High Flow Nasal Cannula Oxygen Flow Rate 6 08/09/24 07:00 08/09/24 08:00 08/09/24 09:35 Temperature Pulse Rate 81 84 112 H Respiratory Rate 20 Blood Pressure Pulse Oximetry Oxygen Delivery Oxygen Flow Rate 08/09/24 10:30 08/09/24 10:40 Temperature Pulse Rate 84 85 Respiratory Rate 20 20 Blood Pressure Pulse Oximetry Oxygen Delivery Oxygen Flow Rate Intake/Output Intake/Output: Intake & Output 08/06/24 08/07/24 08/08/24 08/09/24 23:59 23:59 23:59 23:59 Intake Total 1220 1877 1850 400 Output Total 600 1300 1000 350 Balance 620 577 850 50 Meds/Results Medications: Active Medications Generic Name Dose Route Start Last Admin Trade Name Freq PRN Reason Stop Dose Admin Acetaminophen 650 mg 07/30/24 16:59 Acetaminophen 325 Mg Tablet PO Q4H PRN Mild Pain (1-3) or Fever Hydrocodone Bitart/Acetaminophen 1 tab 07/30/24 16:59 Hydrocodone/Acetaminophen (*Crx) 5-325 Mg Tablet PO Q4H PRN Pain Rated 4-6 Apixaban 5 mg 07/31/24 21:00 08/09/24 09:35 Apixaban 5 Mg Tablet PO 5 mg Q12HR PERFECTO Administration Carbidopa/Levodopa 2 tablet 07/31/24 06:00 08/09/24 05:29 Carbidopa/Levodopa 25/100 Mg Tablet BY MOUTH 2 tablet 0600,1200 PERFECTO Administration Carbidopa/Levodopa 1 tablet 07/30/24 22:55 08/08/24 20:58 Carbidopa/Levodopa 25/100 Mg Tablet BY MOUTH 1 tablet HS PERFECTO Administration Diltiazem HCl 120 mg 08/03/24 12:00 08/09/24 09:37 Diltiazem Hcl Cd 120 Mg Cap.24hr PO 120 mg QAM PERFECTO Administration Guaifenesin 1,200 mg 08/05/24 21:00 08/09/24 09:37 Guaifenesin 12 Hr 600 Mg Tabcr PO 1,200 mg Q12HR [facility] Administration Ceftriaxone Sodium 2 gm in 100 mls @ 200 mls/hr 08/03/24 18:00 08/08/24 18:11 Rocephin 2 Gm/Ns 100 Ml IVPB 08/09/24 23:59 Infused Q24H [facility] Infusion Ipratropium Wells 0.5 mg 08/08/24 12:00 08/09/24 10:30 Ipratropium Br 0.02% Inh Soln 0.5 Mg/2.5 Ml Vial INHALATION 0.5 mg [id number] [facility] Administration Levalbuterol HCl 1.25 mg 08/08/24 12:00 08/09/24 10:30 Levalbuterol Neb 1.25 Mg/3 Ml INHALATION 1.25 mg [id number] [facility] Administration Levothyroxine Sodium 112 mcg 07/31/24 06:30 08/09/24 05:29 Levothyroxine Sodium 112 Mcg Tablet PO 112 mcg DAILY@0630 PERFECTO Administration Metoprolol Tartrate 100 mg 07/30/24 22:50 08/09/24 09:35 Metoprolol Tartrate 50 Mg Tab PO 100 mg Q12HR PERFECTO Administration Miscellaneous Information 1 each 08/08/24 00:01 [place] Needs To Be Renewed Or It Will Automatically Discontinue. XX 09/07/24 00:00 CLARIFY PERFECTO Ondansetron HCl 4 mg 07/30/24 16:59 Ondansetron Inj 4 Mg/2 Ml Vial IV PUSH Q4H PRN Nausea Oseltamivir Phosphate 30 mg 08/04/24 21:00 08/09/24 09:40 Oseltamivir Phosphate 30 Mg Capsule PO 08/09/24 21:01 30 mg Q12HR PERFECTO Administration Polyethylene Glycol 17 gm 08/01/24 14:14 08/01/24 14:26 Polyethylene Glycol 3350 17 Gm Powd.Pack PO 17 gm QAM PRN Administration Constipation Rosuvastatin Calcium 5 mg 07/31/24 09:00 08/09/24 09:37 Rosuvastatin 5 Mg Tablet BY MOUTH 5 mg DAILY PERFECTO Administration Radiology Results: ITS Impressions Chest CT 08/05/24 11:26 IMPRESSION: Small left pleural effusion and bilateral areas of atelectasis, most prominent at the base of the left lower lobe Cardiomegaly Chest X-Ray 08/08/24 08:14 Impression: 1: Consolidation of the left mid and lower lung, compatible with pneumonia. 2: Cardiomegaly. 3: Moderate left pleural effusion.
[2024-08-09] MEDS: FUROSEMIDE INJ 40 MG/4 ML VIAL IV PUSH (13:17)
[2024-08-09] MEDS: cefTRIAXone 2 GM/NS 100 ML 2 GM/100 ML BAG IVPB (17:41)
[2024-08-09] MEDS: CARBIDOPA/LEVODOPA 25/100 MG TABLET 1 TABLET BY MOUTH (21:40)
[2024-08-10] VITALS (17 sets, daily range): BP systolic 115–131; BP diastolic 62–75; PULSE 61–97; RESP 12–20; TEMP 36.2–36.4; O2SAT 90–93
[2024-08-10] MEDS: CARBIDOPA/LEVODOPA 25/100 MG TABLET 2 TABLET BY MOUTH ×2 (06:15→11:20)
[2024-08-10] MEDS: LEVOTHYROXINE SODIUM 112 MCG TABLET PO (06:16)
[2024-08-10] MEDS: IPRATROPIUM BR 0.02% INH SOLN 0.5 MG/2.5 ML VIAL INHALATION ×3 (07:13→20:58)
[2024-08-10] MEDS: LEVALBUTEROL NEB 1.25 MG/3 ML INHALATION ×3 (07:13→20:58)
[2024-08-10] MEDS: APIXABAN 5 MG TABLET PO ×2 (08:06→21:52)
[2024-08-10] MEDS: dilTIAZem HCL CD 120 MG CAP.24HR PO (08:06)
[2024-08-10] MEDS: ROSUVASTATIN 5 MG TABLET BY MOUTH (08:07)
[2024-08-10] MEDS: METOPROLOL TARTRATE 50 MG TAB 100 MG PO ×2 (08:07→21:50)
[2024-08-10] MEDS: FUROSEMIDE INJ 40 MG/4 ML VIAL IV PUSH (08:07)
[2024-08-10] MEDS: guaiFENesin 12 HR 600 MG TABCR 1200 MG PO ×2 (08:07→21:50)
--- NOTE | 2024-08-10 10:20 | PCNWS ---
Weekly nutritional screen. Patient is tolerating current Heart healthy diet with adequate intake, 75-100%. No weight loss reported. No nutritional needs at this time.
--- NOTE | 2024-08-10 10:28 | P.PNPL_ITS ---
Progress Note: A&P Assessment and Plan (1) Influenza A: Code(s): J10.1 - Influenza due to other identified influenza virus with other respiratory manifestations Status: Acute Assessment and Plan: 08/04/23: overall the patient tells me she has a little bit better. She is afebrile. White blood cell count 9.3. Creatinine 1.0. Patient is afebrile. CRP is 0.5. Procalcitonin 0.1. Currently she is on 7 L nasal cannula oxygen with saturations 95%. Chest x-ray today shows an enlarged left lower lobe consolidation consistent with effusion and/or atelectasis. Later in the day CT scan of the chest showed a small left pleural effusion with left lower lobe consolidation with air bronchograms. Plan: Agree with treatment for influenza a pneumonia. Currently she is on day 4 of Tamiflu. She is now off systemic steroids. She was empirically started on vancomycin and ceftriaxone on 08/03/2024 and would continue for now. Goal saturation 90-94%. The patient tells me she improves with levalbuterol and ipratropium nebulizers q.6 hours and will continue. Continue guaifenesin 600 mg p.o. q.12 hours. Continue incentive spirometry and Cornet flutter valve. 08/05/24: Overall the patient states she has a little bit better. She has a moist cough but is unable to bring up any phlegm. Currently she is on 7 L nasal cannula saturations 90%. She is afebrile, creatinine is 1.0. Plan: continue Tamiflu, day 6. Recommend treating for 10 days. MRSA swab negative, vancomycin discontinued. Continue ceftriaxone, day 3. Continue levalbuterol and ipratropium nebulizers q.6 and guaifenesin will increase to 1200 mg twice a day. Later in the day patient had worsening oxygenation requiring 13 L nasal cannula. ABG on 13 L 7.44/50/59. 08/06/2024: Patient continues to tell me she does a little bit better each day. She has a dry cough, no phlegm, no hemoptysis. Patient was in the middle of a physical therapy session and had just walked from the her bed to the door and back on 10 L nasal cannula her saturations were 98%. White blood cell count 11.7, creatinine 0.8. BNP 3090 improved from 4430. Plan: Continue Tamiflu, day 7, renally adjusted. Continue ceftriaxone day 4, continue levalbuterol and ipratropium nebulizers q.6 and guaifenesin 1200 twice a day. 08/07/2024: The patient tells me she continues to improve each day. Currently she is on 8 L nasal cannula saturations 96%. She is afebrile. White blood cell count 11.3, creatinine 0.62. she performed Cornet flutter valve with me. She performed incentive spirometry at 600 mL. Plan: Continue Tamiflu, day 8. Continue ceftriaxone, day 5. Continue levalbuterol and ipratropium nebulizers. Continue guaifenesin 1200 twice a day. Goal saturation 90-94%, wean as tolerated. I discussed this with the bedside nurse. 08/08/2024: Patient had episode of desaturation early in the morning. She required 15 L face mask. I ordered a chest x-ray this morning which shows consolidation in the left lower lobe with no change from 08/04/2024. Today she tells me that she continues to slowly improve. Her cough and phlegm persist but are better. Her white blood cell count is 11.1, creatinine is 0.59. C umulative she is positive 2.7 L since admission. Bubble study was negative. BNP 3690. Plan: Continue Tamiflu, day 9. Continue ceftriaxone, day 6. Continue levalbuterol and ipratropium nebulizers and change to while awake. Continue guaifenesin 1200 twice a day. Goal saturation 90-94%, wean as tolerated. I discussed this with the bedside nurse. I will give Lasix 20 mg IV x1 today. 08/09/24: Patient has been stable since yesterday morning. She states she is a little better. She is debilitated but she is doing some walking. She has a dry cough. She is afebrile. Currently she is on 6 L nasal cannula saturations 92%. Patient had an overnight oximetry on 6 L with recording duration 5 hours and 21 minutes. Average saturation 92%. Low saturation 87%. Time with saturation le ss than or equal to 88% was 6 minutes. Oxygen desaturation index 2.3. She will finish day 10 of Tamiflu and day 7 of ceftriaxone today. Plan: Last day of Tamiflu, day 10. Last day of ceftriaxone day 7. Continue levalbuterol and ipratropium nebulizers. Continue incentive spirometry, I will give 40 of Lasix today. 08/10/24: Patient says she improves a little bit each day. She says the cough is better. She did have nose bleeding this morning. When I enter the room she was on 7 L with saturations 97%. I decreased her to 4 L for 6 minutes and her saturations remain 96% I decreased her to 3 L and her saturations remained 95 % for 5 minutes. I placed her on room air and after 3 minutes she desaturated to 89%. I placed her back on 2 L and her saturations were 94%. Patient given 40 of Lasix yesterday and she was positive 1.6 L, cumulative she is positive 5.1 L. Her weight is 74.9 today. Plan: Patient is slowly improving. She walked in the halls yesterday. Oxygen improved this morning and down to 2 L. overnight oximetry was worse on 7 L than 6 L. she said she had no problems with a nasal cannula coming off last night. continue incentive spirometry, Cornet flutter valve, guaifenesin 1200 p.o. b.i.d. from the care coordination note it looks like the patient is planning on returning home. From a pulmonary perspective patient when the patient is ready to be discharged she should be on these pulmonary medications: Anoro Ellipta 62.5-25 at 1 puff q.day Rescue albuterol 2 puffs q.4 hours p.r.n. shortness of breath or wheezing Guaifenesin 1200 mg p.o. b.i.d. p.r.n. Oxygen at rest and with ambulation per formal home O2 assessment on the day of discharge Oxygen at night as guided by overnight oximetry on 8 L which will be performed tonight. Pulmonary inpatient consultative services will resume on 08/13/2024. Call with questions. Discussed with Dr. Esquivel. (2) Hypoxia: Code(s): R09.02 - Hypoxemia Status: Acute Assessment and Plan: At baseline she had dyspnea on exertion and required 2 L oxygen at night and none with rest or with activity. 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 plan: Patient currently on 7 L nasal cannula. Suspect her current hypoxemia is related to influenza pneumonia with a small left pleural effusion and consolidation in the left lower lobe. Continue treatment as above. 08/05/2024: Currently she is on 7 L nasal cannula saturations 90%. Plan: Treatment for influenza pneumonia as above. Will continue Cornet flutter valve. Will add EzPAP. Out of bed to chair as tolerated. 08/06/24: Patient was on 13 L nasal cannula yesterday and today has been decreased to 10 L nasal cannula. Plan: Continue Tamiflu as above. Continue Cornet flutter valve, incentive spirometry which she is doing 600 mL, and EzPAP. Will order echo with bubble study. 08/07/23: Oxygenation slowly improving. She is back to 8 L and right now with a saturation of 96% will try to wean to maintain saturations 90 %. Echo with bubble study pending. Continue Cornet flutter valve, incentive spirometry q.2 hours while awake. The daughter is at the bedside and will try to reinforce this. Continue out of bed and physical therapy as tolerated. 08/08/23: When I enter the room she was on 10 L nasal cannula saturations 99%. I decreased her to 6 L nasal cannula and after 6 minutes her saturations were 97%. I decreased her to 5 L and after 12 minutes her saturation was 97%. Plan: Goal saturation 90-94%. Wean accordingly. I will order overnight oximetry on 6 L tonight. 08/09/24: Patient had an overnight oximetry on 6 L with recording duration 5 hours and 21 minutes. Average saturation 92%. Low saturation 87%. Time with saturation less than or equal to 88% was 6 minutes. Oxygen desaturation index 2.3. Plan: I will repeat overnight oximetry on 7 L. 08/10/24: Patient had an overnight oximetry on 7 L with recording duration of 6 hours and 6 minutes. Average saturation 90%. Low saturation 79%. Time with saturation less than or equal to 88% was 75 minutes. Oxygen desaturation index 1.0. Plan: I will repeat an overnight oximetry on 8 L tonight. Subjective Date/time seen: 08/10/24 10:28 Interval history: Aug 03, 2024 at 22:00 Room 331 NEW: Jing Garcias is 83 years old, admitted with influenza and acute hypoxic respiratory failure. Last office visit w Dr Ramesh was 06/06/23; restrictive impairment with need for O2 2 L w exertion. She did not require a follow up appointment. She never gets a flu vaccination. She was admitted with increased shortness of breath, PCR (+) for influenza A and acute hypercapnic respiratory failure. She feels better now compared to admission. She was started on Tamiflu 75 mg p.o. q.12 hours and IV Solu-Medrol which was discontinued today. She had rapid atrial fibrillation, was treated with diltiazem. She initially required 15 liters/minute, the amount fluctuated on the initial admission date July 31, was down to 7 or 8 L a minute, now stable at 8 L for the last 2 - 3 days. 08/04/23: overall the patient tells me she has a little bit better. She is afebrile. White blood cell count 9.3. Creatinine 1.0. Patient is afebrile. CRP is 0.5. Procalcitonin 0.1. Currently she is on 7 L nasal cannula oxygen with saturations 95%. Chest x-ray today shows an enlarged left lower lobe consolidation consistent with effusion and/or atelectasis. 08/05/24: Overall the patient states she has a little bit better. She has a moist cough but is unable to bring up any phlegm. Currently she is on 7 L nasal cannula saturations 90%. She is afebrile, creatinine is 1.0. later in the day patient had worsening oxygenation requiring 13 L nasal cannula. ABG on 13 L 7.44/50/59. 08/06/2024: Patient continues to tell me she does a little bit better each day. She has a dry cough, no phlegm, no hemoptysis. Patient was in the middle of a physical therapy session and had just walked from the her bed to the door and back on 10 L nasal cannula her saturations were 98%. White blood cell count 11.7, creatinine 0.8. BNP 3090 improved from 4430. Bubble study was negative. 08/07/2024: The patient tells me she continues to improve each day. Currently she is on 8 L nasal cannula saturations 96%. She is afebrile. White blood cell count 11.3, creatinine 0.62. she performed Cornet flutter valve with me. She performed incentive spirometry at 600 mL. 08/08/2024: Patient had episode of desaturation early in the morning. She required 15 L face mask. I ordered a chest x-ray this morning which shows consolidation in the left lower lobe with no change from 08/04/2024. Today she tells me that she continues to slowly improve. Her cough and phlegm persist but are better. Her white blood cell count is 11.1, creatinine is 0.59. When I enter the room she was on 10 L nasal cannula saturations 99%. I decreased her to 6 L nasal cannula and after 6 minutes her saturations were 97%. I decreased her to 5 L and after 12 minutes her saturation was 97%. Cumulative she is positive 2.7 L since admission. Bubble study was negative. BNP 3690. 08/09/24: Patient has been stable since yesterday morning. She states she is a little better. She is debilitated but she is doing some walking. She has a dry cough. She is afebrile. Currently she is on 6 L nasal cannula saturations 92%. Patient had an overnight oximetry on 6 L with recording duration 5 hours and 21 minutes. Average saturation 92%. Low saturation 87%. Time with saturation less than or equal to 88% was 6 minutes. Oxygen desaturation index 2.3. She will finish day 10 of Tamiflu and day 7 of ceftriaxone today. 08/10/24: Patient says she improves a little bit each day. She says the cough is better. She did have nose bleeding this morning. When I enter the room she was on 7 L with saturations 97%. I decreased her to 4 L for 6 minutes and her saturations remain 96% I decreased her to 3 L and her saturations remained 95 % for 5 minutes. I placed her on room air and after 3 minutes she desaturated to 89%. I placed her back on 2 L and her saturations were 94%. Patient had an overnight oximetry on 7 L with recording duration of 6 hours and 6 minutes. Average saturation 90%. Low saturation 79%. Time with saturation less than or equal to 88% was 75 minutes. Oxygen desaturation index 1.0. Patient given 40 of Lasix yesterday and she was positive 1.6 L, cumulative she is positive 5.1 L. Her weight is 74.9 today. DATA: 08/06/24: Summary 1. This was a bubble study only. 2. Intact interatrial septum visualized by agitated saline imaging. Negative bubble study. 08/04/24: EXAMINATION: CT diagnostic chest wo con INDICATION: Left lower lobe pneumonia versus effusion COMPARISON: 08/04/2024 portable AP chest FINDINGS: Small left pleural effusion. There is linear atelectasis or scarring of the lingula. There is more prominent left basilar lower lobe atelectasis, minimal dependent right lower lobe atelectasis. Cardiomegaly. There is extensive thoracic aortic calcification including ascending aorta, aortic arch, descending thoracic aorta. No thoracic aortic aneurysm. No hilar or mediastinal mass lesion or adenopathy. No pericardial effusion. Status post cholecystectomy. IMPRESSION: Small left pleural effusion and bilateral areas of atelectasis, most prominent at the base of the left lower lobe Cardiomegaly * MRSA swab negative, influenza A positive, all other PCR are negative, influenza B, RSV, SARS-CoV-2. * 08/03/2024 sodium 137, potassium 4.3, chloride 93, HC03 greater than 40, BUN 60, initially was 31, increased over the next 3 days there was 60, creatinine 0.7 * 07/31/24; ABG; pH 7.42, pCO2 53.3, pO2 73.4, HC03 34.1, saturation 94.8 on high-flow 8 L * 08/02/24 : Impression: Small left pleural effusion with left basilar and left perihilar airspace disease. Correlate for atelectasis/edema versus pneumonia. * 07/30/24 : Central congestive change with probable minimal bibasilar pulmonary edema/atelectatic change. 03/02/2023: This is a pulmonary function test with pre and post-bronchodilator spirometry, plethysmography and diffusing capacity.? The test was performed and results interpreted in accordance with the 2019 and 2005 ATS/ERS Task Force guidelines respectively using the Global Lung Function Initiative-2012 reference equations. Patient demonstrated good effort and cooperation. Reproducibility criteria were met. The quality of the pre bronchodilator spirometry maneuver was Grade A and post bronchodilator spirometry maneuver was Grade A.? I spoke with the dialysis technician and the patient required coaching to complete the spirometry and the remainder of the test the patient did well and there were no technical issues measuring the lung volumes. Findings: Spirometry:? The contour the inspiratory and expiratory flow tracing are normal.? The pre bronchodilator FVC is 1.46 L, 56% predicted.? The pre bronchodilator FEV1 is 1.03 L, 52% predicted.? The pre bronchodilator FEV1: FVC ratio 70%.? The post bronchodilator FVC is 1.31 L, representing an 11% decrease.? The post bronchodilator FEV1 is 1.00 L, representing a 3% decrease.? The post bronchodilator FEV1: FVC ratio 76%.? Plethysmography:? The total lung capacity 7.08 L, 136% predicted.? The f unctional residual capacity is 5.89 L, 196% predicted.? The residual volume is 5.61 L, 228% predicted.? Diffusing capacity:? The diffusing capacity unadjusted for hemoglobin and carboxyhemoglobin is 12.5, 63% predicted.? The diffusing capacity adjusted for alveolar volume is 5.71, 140% predicted.? In comparison to previous pulmonary function testing on 03/23/2021 the post bronchodilator FVC is unchanged from 1.51 L to 1.31 L.? The post bronchodilator FEV1 is decreased from 1.18 L to 1.00 L.? The total lung capacity has increased from 3.44 L to 7.08 L.? The functional residual capacity is increased from 2.16 L to 5.89 L.? The residual volume has increased from 1.90 L to 5.61 L.? The diffusing capacity unadjusted for hemoglobin and carboxyhemoglobin is unchanged from 12.3 to 12.5.? The diffusing capacity adjusted for alveolar volume is unchanged from 5.26 to 5.71. Impression: The spirometry is normal without evidence of an obstructive abnormality. The lung volumes are increased without evidence of a restrictive abnormality. ? The FVC and FEV1 are moderately severely decreased without an obstructive or restrictive abnormality.? This is an abnormal but nonspecific finding.? There is no significant improvement after inhaling a single dose of albuterol.? The total lung capacity, functional residual capacity and residual volume are increased with an increased residual volume: TLC ratio.? This is consistent with hyperinflation. The diffusing capacity unadjusted for hemoglobin and carboxyhemoglobin is mildly decreased and increased when adjusted for alveolar volume.? In comparison to previous pulmonary function testing on 03/23/2021 there has been a greater than anticipated time dependent increase in the total lung capacity, residual volume and functional residual capacity with a greater than anticipated time dependent decrease in the FEV1 with no significant change in the FVC or diffusing capacity.? Clinical correlation is recommended. 03/02/23: The patient has no obstructive abnormality and no restrictive abnormality with hyperinflation that has increased since 03/23/2021. This is a 6 minute walk test using walking aid. Resting room air oxygen saturation measured by pulse oximetry was 94% and heart rate was 64 bpm.? Patient ambulated for 122 meters and oxygen saturation remained 90 to 93%.? Heart rate at the end of the study was 88 bpm. The patient did not qualify for supplemental oxygen at rest or with ambulation. 02/16/2023: Overnight oximetry on 2 L nasal cannula. Recording duration was 1 hour and 34 minutes basal saturation 93.4%. High saturation 98%. Low saturation 89%. Time with saturation less than or equal to 88% was 0 minutes. Oxygen desaturation index is 10. Continue 2 L nasal cannula at night. 02/02/2023:? This is a follow-up encounter from 10/28/2021 for MAHER and nocturnal hypoxemia. On 10/28/2021:? Patient with MAHER and nocturnal hypoxemia. She is a nonsmoker with no occupational exposures. Patient has no rest SOB and she also requires no oxygen at rest but 2 L with ambulation per home O2 assessment on 03/23/2021. She has a moderately severe restrictive abnormality with a total lung capacity of 67% predicted. She has a CT scan of the chest that demonstrates severe thoracic spondylosis and some kyphosis with no emphysematous or interstitial lung disease. I believed her MAHER and hypoxemia is related to her restrictive lung disease with evidence of kyphosis on her CT scan but no evidence of interstitial lung disease. I suspect there also is a component of deconditioning for her MAHER. Patient has minimal respiratory limitations in her activities of daily living at this time and is currently walking 3/4 to 1 mile 5 days a week and this takes her 45 minutes without oxygen. She has pleased with this progress. Portable oxygen concentrator process was initiated. At this time there is no specific pulmonary follow-up needed. Please refer the patient to us should she have any new issues. 08/11/2022:? Cardiology outpatient visit states some SOB but able to walk outside 1/4 mi or so with only stopping once.? Thinks she might need to see pulmonary again.? Wears O2 at night and naps. 12/15/2022:? Cardiology, Dr. Vazquez, she is still SOB with stairs, ADLs like running vacuum about the same from last visit.? O2 saturation 92% room air at rest.? Complaints of SOB stable.? She does not appear to be in decompensated heart failure.? At rest 93% on room air after 1 lap = 95%.? Two laps = 90%, 3 laps = 90%.? Patient does not qualify for supplemental oxygen with ambulation although she is mildly hypoxic.? I have strongly encouraged her to contact her ice cream machine operator again to be seen as soon as possible for further recommendations and management in this regard. This appears to be the explanation of her symptoms in the absence of decompensated heart failure.? Her echo is not suggestive of significant valvular heart disease.? Her AFib is persistent with a reasonably controlled ventricular response.? Patient verbalized understanding. DATA: EXAMINATION:CT diagnostic chest wo con DATE: 04/03/2021 12:41 INDICATION: Other disorders of lung. COMPARISON: Chest CT 03/20/2019, 06/18/2016 FINDINGS: There is mild emphysema. There is mild bronchiectasis in right middle lobe and lingula. A calcified right lung nodule and calcified right hilar and mediastinal lymph nodes are consistent with old granulomatous disease. There is mild atelectasis in the inferior lungs. There is an 8 mm nodule in right lower lobe without change, likely benign. No pleural effusion. The heart size is normal. There are coronary artery calcifications. No pericardial effusion. Calcifications in the spleen are consistent with old granulomatous disease. There are changes of cholecystectomy. 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 There is lucency around the glenoid component with subsidence, consistent with loosening. There is severe thoracic spondylosis. There are changes of vertebroplasty at L1. IMPRESSION: 1. Mild emphysema. 2. 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 03/23/21 PFTs ? This is a pulmonary function test with pre and post-bronchodilator spirometry, plethysmography and diffusing capacity. The test was performed and results interpreted in accordance with the 2019 and 2005 ATS/ERS Task Force guidelines respectively using the Global Lung Function Initiative-2012 reference equations. Patient demonstrated good effort and cooperation. Reproducibility criteria were met. The quality of the pre bronchodilator spirometry maneuver was Grade A and post bronchodilator spirometry maneuver was Grade A. Findings: Spirometry:? The contour of the expiratory flow tracing is that of a witch's hat.? The contour the inspiratory flow tracing is normal.? The pre bronchodilator FVC is 1.54 L, 54% predicted.? The pre bronchodilator FEV1 is 1.13 L, 57% predicted.? The FEV1: FVC ratio 73%.? The post bronchodilator FVC is 1.51 L, representing a 2% decrease.? The post bronchodilator FEV1 is 1.18 L, representing a 5% decrease. Plethysmography:? The total lung capacity is 3.44 L, 67% predicted.? The functional residual capacity is 2.16 L, 76% predicted.? The residual volume is 1.90 L, 87% predicted. Diffusing capacity:? The absolute diffusion capacity is 12.3, 60% predicted.? The diffusing capacity corrected for alveolar volume is 5.26, 157% predicted. Impression: There is a moderately severe restrictive ventilatory abnormality. The spirometry is normal without evidence of an obstructive abnormality. There is no significant improvement after inhaling a single dose of albuterol. The ? Absolute diffusion capacity is normal and increased when corrected for alveolar volume. There are no prior studies for comparison. 03/03/2021: Patient had an overnight oximetry on room air that demonstrated a basal saturation of 90.3%.? High saturation 98.0%.? Low saturation 76.0%.? Time with saturation less than or equal to 88% was 63.7 minutes.? I will prescribe 2 L nasal cannula oxygen at night and repeat an overnight oximetry on 2 L nasal cannula. Review of Systems Review of Systems: All systems reviewed & are unremarkable except as noted in HPI and below Constitutional: Constitutional: Reports no additional constitutional complaints Eyes: Eyes: Reports no additional eye complaints ENT: Reports system reviewed and no additional complaints, except as documented Cardiovascular: Cardiovascular: Reports no additional cardiovascular complaints Respiratory: Respiratory: Reports no additional respiratory complaints Gastrointestinal: Gastrointestinal: Reports no additional gastrointestinal complaints Musculoskeletal: Musculoskeletal: Reports no additional musculoskeletal complaints Neurologic: Reports system reviewed and no additional complaints, except as documented Psychiatric: Psychiatric: Reports no additional psychiatric complaints Endocrine: Endocrine: Reports no additional endocrine complaints Hematologic/Lymphatic: Hematologic/Lymphatic: Reports no additional hematologic/lymphatic complaints Allergic/Immunologic: Allergic/Immunologic: Reports no additional allergic/immunologic complaints Exam Const: General: cooperative, healthy appearing and comfortable Orientation/consciousness: oriented to person, oriented to place and oriented to time HENMT: Head: normal to inspection Ears: hearing grossly normal bilaterally Eyes: General: appearance normal, both eyes and all related structures Neck: Neck: normal visual inspection Chest: Chest palpation & inspection: normal inspection of the chest Resp: Effort & Inspection: normal respiratory effort and able to speak in complete sentences Auscultation: crackles (few bases), no rales, no rhonchi, no wheezes and lung sounds not diminished Other: rhonchorous BS resolved Cardio: Jugular venous distension: no JVD GI: Inspection: normal to inspection Skin: General skin exam: normal color Neuro: General: oriented to person, oriented to place and oriented to time Extrem: General: normal to inspection Psych: Appearance: grossly normal Objective Data Vital Signs Vital Signs: Vital Signs - 24 hr 08/09/24 10:30 08/09/24 10:40 08/09/24 12:00 Temperature Pulse Rate 84 85 85 Respiratory Rate 20 20 Blood Pressure Pulse Oximetry Oxygen Delivery Oxygen Flow Rate 08/09/24 14:20 08/09/24 14:30 08/09/24 16:00 Temperature Pulse Rate 77 80 82 Respiratory Rate 18 18 Blood Pressure Pulse Oximetry Oxygen Delivery Oxygen Flow Rate 08/09/24 16:19 08/09/24 20:00 08/09/24 21:20 Temperature 36.8 C Pulse Rate 76 97 94 Respiratory Rate 18 18 Blood Pressure 144/78 H Pulse Oximetry 94 Oxygen Delivery Oxygen Flow Rate 08/09/24 21:25 08/09/24 21:38 08/09/24 22:00 Temperature 36.7 C Pulse Rate 80 73 Respiratory Rate 20 Blood Pressure 122/56 L Pulse Oximetry 91 92 Oxygen Delivery High Flow Nasal Cannula Oxygen Flow Rate 6 08/10/24 00:00 08/10/24 04:00 08/10/24 06:00 Temperature 36.4 C Pulse Rate 66 61 68 Respiratory Rate 20 Blood Pressure 131/75 Pulse Oximetry 93 Oxygen Delivery Oxygen Flow Rate 08/10/24 07:13 08/10/24 07:13 08/10/24 07:40 Temperature Pulse Rate 76 74 Respiratory Rate 18 18 Blood Pressure Pulse Oximetry 90 Oxygen Delivery High Flow Nasal Cannula Oxygen Flow Rate 7 08/10/24 08:00 08/10/24 08:07 Temperature Pulse Rate 70 Respiratory Rate Blood Pressure Pulse Oximetry 92 Oxygen Delivery High Flow Nasal Cannula Oxygen Flow Rate 6 Intake/Output Intake/Output: Intake & Output 08/07/24 08/08/24 08/09/24 08/10/24 23:59 23:59 23:59 23:59 Intake Total 1877 1850 1960 200 Output Total 1300 1000 350 400 Balance 064 570 1607 -200 Meds/Results Medications: Active Medications Generic Name Dose Route Start Last Admin Trade Name Freq PRN Reason Stop Dose Admin Acetaminophen 650 mg 07/30/24 16:59 Acetaminophen 325 Mg Tablet PO Q4H PRN Mild Pain (1-3) or Fever Apixaban 5 mg 07/31/24 21:00 08/10/24 08:06 Apixaban 5 Mg Tablet PO 5 mg Q12HR PERFECTO Administration Carbidopa/Levodopa 2 tablet 07/31/24 06:00 08/10/24 06:15 Carbidopa/Levodopa 25/100 Mg Tablet BY MOUTH 2 tablet 0600,1200 PERFECTO Administration Carbidopa/Levodopa 1 tablet 07/30/24 22:55 08/09/24 21:40 Carbidopa/Levodopa 25/100 Mg Tablet BY MOUTH 1 tablet HS PERFECTO Administration Diltiazem HCl 120 mg 08/03/24 12:00 08/10/24 08:06 Diltiazem Hcl Cd 120 Mg Cap.24hr PO 120 mg QAM PERFECTO Administration Furosemide 40 mg 08/09/24 13:05 08/10/24 08:07 Furosemide Inj 40 Mg/4 Ml Vial IV PUSH 40 mg DAILY PERFECTO Administration Guaifenesin 1,200 mg 08/05/24 21:00 08/10/24 08:07 Guaifenesin 12 Hr 600 Mg Tabcr PO 1,200 mg Q12HR PERFECTO Administration Ipratropium [place] 0.5 mg 08/08/24 12:00 08/10/24 07:13 Ipratropium Br 0.02% Inh Soln 0.5 Mg/2.5 Ml Vial INHALATION 0.5 mg [id number] PERFECTO Administration Levalbuterol HCl 1.25 mg 08/08/24 12:00 08/10/24 07:13 Levalbuterol Neb 1.25 Mg/3 Ml INHALATION 1.25 mg [id number] PERFECTO Administration Levothyroxine Sodium 112 mcg 07/31/24 06:30 08/10/24 06:16 Levothyroxine Sodium 112 Mcg Tablet PO 112 mcg DAILY@0630 PERFECTO Administration Metoprolol Tartrate 100 mg 07/30/24 22:50 08/10/24 08:07 Metoprolol Tartrate 50 Mg Tab PO 100 mg Q12HR PERFECTO Administration Miscellaneous Information 1 each 08/08/24 00:01 [place] Needs To Be Renewed Or It Will Automatically Discontinue. XX 09/07/24 00:00 [facility]IFY [facility] Ondansetron HCl 4 mg 07/30/24 16:59 Ondansetron Inj 4 Mg/2 Ml Vial IV PUSH Q4H PRN Nausea Polyethylene Glycol 17 gm 08/01/24 14:14 08/01/24 14:26 Polyethylene Glycol 3350 17 Gm Powd.Pack PO 17 gm QAM PRN Administration Constipation Rosuvastatin Calcium 5 mg 07/31/24 09:00 08/10/24 08:07 Rosuvastatin 5 Mg Tablet BY MOUTH 5 mg DAILY PERFECTO Administration Radiology Results: ITS Impressions Chest CT 08/05/24 11:26 IMPRESSION: Small left pleural effusion and bilateral areas of atelectasis, most prominent at the base of the left lower lobe Cardiomegaly Chest X-Ray 08/08/24 08:14 Impression: 1: Consolidation of the left mid and lower lung, compatible with pneumonia. 2: Cardiomegaly. 3: Moderate left pleural effusion.
--- NOTE | 2024-08-10 13:41 | P.PNIM_ITS ---
Progress Note: A&P Assessment and Plan (1) Influenza A: Code(s): J10.1 - Influenza due to other identified influenza virus with other respiratory manifestations Status: Acute (2) CHF exacerbation: Code(s): I50.9 - Heart failure, unspecified Status: Acute (3) Acute respiratory distress: Code(s): R06.03 - Acute respiratory distress Status: Inactive (4) Atrial fibrillation: Qualifiers: Atrial fibrillation type: unspecified Qualified Code(s): I48.91 - Unspecified atrial fibrillation Code(s): I48.91 - Unspecified atrial fibrillation Status: Acute (5) Hyperlipidemia: Qualifiers: Hyperlipidemia type: mixed hyperlipidemia Qualified Code(s): E78.2 - Mixed hyperlipidemia Code(s): E78.5 - Hyperlipidemia, unspecified Status: Acute (6) Essential hypertension: Code(s): I10 - Essential (primary) hypertension Status: Acute (7) Parkinson's 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, without mention of fluctuations: Qualifiers: Fluctuating manifestations: without fluctuating manifestations Qualified Code(s): G20.A1 - Parkinson's 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, without mention of fluctuations Code(s): G20.A1 - Parkinson's 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, without mention of fluctuations Status: Acute Plan This is an 83-year-old female presents to the ED with increased generalized weakness fatigue and went to urgent care where she was found to be hypoxic. She also reported cough. On the ED evaluation she was hypoxic 84% on room air was placed on 4 L oxygen via nasal cannula mildly tachycardic. AFib on EKG. Laboratory data showed normal WBC 7.8 hemoglobin of 15.4 platelet 186 Chem panel was unremarkable. BNP was elevated at 3840. Influenza RSV COVID swab tested positive for influenza A. Chest x-ray showed mild pulmonary vascular congestion with small bilateral pleural effusion and adjacent compressive atelectasis. Patient on chronic anticoagulation with apixaban. Patient admitted started on Tamiflu for influenza a. Finished course of Tamiflu Acute hypoxic respiratory failure oxygen as tolerated. Pulmonary on board Also treated for acute congestive heart failure. No prior diagnosis of congestive heart failure the she has been worked up for dyspnea on exertion in the past. Cardiology consulted. IV Lasix b.i.d. repeat chest x-ray with improved congestion. Because of atrial fibrillation will change DuoNeb to Xopenex and ipratropium. Droplet isolation to continue. Last echo 2021 with EF 70% trace TR RVSP 37 mild LVH. Repeat echo 08/03/24 with 65-70%. Mild aortic valve stenosis mobile density attached to the posterior annulus of the mitral valve most likely calcified nodule. Echo with bubble study negative. Atrial fibrillation with rapid ventricular rate cardiology on board changed to Xopenex continue home metoprolol and Eliquis Hypertension Hyperlipidemia Parkinson's disease Sleep apnea uses oxygen at night Restrictive lung disease with kyphosis plans to get a portable oxygen concentrator in the past per pulmonary note and family. Will need home oxygen evaluation at the time of discharge to evaluate this. Hypothyroidism possible also related to her restrictive lung disease with evidence of kyphosis on her CT scan but no evidence of interstitial lung disease. on 12L POX 92 DVT prophylaxis on Eliquis Code status do not resuscitate Disposition home with home health planned Subjective Date/time seen: 08/10/24 13:41 Interval history: No overnight events oxygen look wire mint down to 2 L via nasal cannula. She worked with therapy in the hallway today nausea vomiting. Discussed with Pulmonary. Review of Systems Review of Systems: All systems reviewed & are unremarkable except as noted in HPI and below Exam Narrative: GENERAL: Frail looking, in no acute distress. Well-nourished. - EYES: EOMI. Anicteric. - HENT: Moist mucous membranes. - LUNGS: Coarse breath sound bilateral base no respiratory distress - CARDIOVASCULAR: Regular rate and rhyth m. No murmur. No JVD. - ABDOMEN: Soft, non-tender and non-dist ended. No palpable masses. - EXTREMITIES: No edema. Peripheral puls es 2+. Non-tender. - NEUROLOGIC: No focal neurological defi cits. CN II-XII grossly intact.General weakness - PSYCHIATRIC: Awake, Alert and oriented x 3. Appropriate mood and affect. - SKIN: No rashes or lesions. Warm. - LYMPH: No cervical lymphadenopathy. Objective Data Vital Signs Vital Signs: Vital Signs - 24 hr 08/09/24 14:20 08/09/24 14:30 08/09/24 16:00 Temperature Pulse Rate 77 80 82 Respiratory Rate 18 18 Blood Pressure Pulse Oximetry Oxygen Delivery Oxygen Flow Rate 08/09/24 16:19 08/09/24 20:00 08/09/24 21:20 Temperature 98.2 F Pulse Rate 76 97 94 Respiratory Rate 18 18 Blood Pressure 144/78 H Pulse Oximetry 94 Oxygen Delivery Oxygen Flow Rate 08/09/24 21:25 08/09/24 21:38 08/09/24 22:00 Temperature 98.0 F Pulse Rate 80 73 Respiratory Rate 20 Blood Pressure 122/56 L Pulse Oximetry 91 92 Oxygen Delivery High Flow Nasal Cannula Oxygen Flow Rate 6 08/10/24 00:00 08/10/24 04:00 08/10/24 06:00 Temperature 97.6 F Pulse Rate 66 61 68 Respiratory Rate 20 Blood Pressure 131/75 Pulse Oximetry 93 Oxygen Delivery Oxygen Flow Rate 08/10/24 07:13 08/10/24 07:13 08/10/24 07:40 Temperature Pulse Rate 76 74 Respiratory Rate 18 18 Blood Pressure Pulse Oximetry 90 Oxygen Delivery High Flow Nasal Cannula Oxygen Flow Rate 7 08/10/24 08:00 08/10/24 08:07 08/10/24 12:00 Temperature Pulse Rate 70 65 Respiratory Rate Blood Pressure Pulse Oximetry 92 Oxygen Delivery High Flow Nasal Cannula Oxygen Flow Rate 6 08/10/24 13:38 Temperature Pulse Rate 69 Respiratory Rate 18 Blood Pressure Pulse Oximetry Oxygen Delivery Oxygen Flow Rate Intake/Output Intake/Output: Intake & Output 08/07/24 08/08/24 08/09/24 08/10/24 23:59 23:59 23:59 23:59 Intake Total 1877 1850 1960 440 Output Total 1300 1000 350 400 Balance 823 019 0750 40 Meds/Results Medications: Active Medications Generic Name Dose Route Start Last Admin Trade Name Freq PRN Reason Stop Dose Admin Acetaminophen 650 mg 07/30/24 16:59 Acetaminophen 325 Mg Tablet PO Q4H PRN Mild Pain (1-3) or Fever Apixaban 5 mg 07/31/24 21:00 08/10/24 08:06 Apixaban 5 Mg Tablet PO 5 mg Q12HR PERFECTO Administration Carbidopa/Levodopa 2 tablet 07/31/24 06:00 08/10/24 11:20 Carbidopa/Levodopa 25/100 Mg Tablet BY MOUTH 2 tablet 0600,1200 PERFECTO Administration Carbidopa/Levodopa 1 tablet 07/30/24 22:55 08/09/24 21:40 Carbidopa/Levodopa 25/100 Mg Tablet BY MOUTH 1 tablet HS PERFECTO Administration Diltiazem HCl 120 mg 08/03/24 12:00 08/10/24 08:06 Diltiazem Hcl Cd 120 Mg Cap.24hr PO 120 mg QAM PERFECTO Administration Furosemide 40 mg 08/09/24 13:05 08/10/24 08:07 Furosemide Inj 40 Mg/4 Ml Vial IV PUSH 40 mg DAILY PERFECTO Administration Guaifenesin 1,200 mg 08/05/24 21:00 08/10/24 08:07 Guaifenesin 12 Hr 600 Mg Tabcr PO 1,200 mg Q12HR PERFECTO Administration Ipratropium [place] 0.5 mg 08/10/24 14:00 08/10/24 13:36 Ipratropium Br 0.02% Inh Soln 0.5 Mg/2.5 Ml Vial INHALATION 0.5 mg TIDRT PERFECTO Administration Levalbuterol HCl 1.25 mg 08/10/24 14:00 08/10/24 13:36 Levalbuterol Neb 1.25 Mg/3 Ml INHALATION 1.25 mg TIDRT PERFECTO Administration Levothyroxine Sodium 112 mcg 07/31/24 06:30 08/10/24 06:16 Levothyroxine Sodium 112 Mcg Tablet PO 112 mcg DAILY@0630 PERFECTO Administration Metoprolol Tartrate 100 mg 07/30/24 22:50 08/10/24 08:07 Metoprolol Tartrate 50 Mg Tab PO 100 mg Q12HR PERFECTO Administration Miscellaneous Information 1 each 08/08/24 00:01 [place] Needs To Be Renewed Or It Will Automatically Discontinue. XX 09/07/24 00:00 CLARIFY [facility] Ondansetron HCl 4 mg 07/30/24 16:59 Ondansetron Inj 4 Mg/2 Ml Vial IV PUSH Q4H PRN Nausea Polyethylene Glycol 17 gm 08/01/24 14:14 08/01/24 14:26 Polyethylene Glycol 3350 17 Gm Powd.Pack PO 17 gm QAM PRN Administration Constipation Rosuvastatin Calcium 5 mg 07/31/24 09:00 08/10/24 08:07 Rosuvastatin 5 Mg Tablet BY MOUTH 5 mg DAILY PERFECTO Administration Radiology Results: ITS Impressions Chest CT 08/05/24 11:26 IMPRESSION: Small left pleural effusion and bilateral areas of atelectasis, most prominent at the base of the left lower lobe Cardiomegaly Chest X-Ray 08/08/24 08:14 Impression: 1: Consolidation of the left mid and lower lung, compatible with pneumonia. 2: Cardiomegaly. 3: Moderate left pleural effusion.
[2024-08-10] MEDS: CARBIDOPA/LEVODOPA 25/100 MG TABLET 1 TABLET BY MOUTH (21:52)
[2024-08-11] VITALS (16 sets, daily range): BP systolic 105–135; BP diastolic 61–78; PULSE 63–100; RESP 14–20; TEMP 36.2–36.8; O2SAT 91–94
[2024-08-11] MEDS: LEVOTHYROXINE SODIUM 112 MCG TABLET PO (05:57)
[2024-08-11] MEDS: CARBIDOPA/LEVODOPA 25/100 MG TABLET 2 TABLET BY MOUTH ×2 (05:57→14:52)
[2024-08-11 06:22] LABS: Basophils Percent Auto 0.2 % (0.2-1.2); Eosinophils Percent Auto 0.1 % (0-4.4); Hematocrit 49.5 % (37.0-47.0); Hemoglobin 15.5 g/dL (12.0-15.0); Immature Granulocyte Absolute 0.16 K/mm3 (0.00-0.031); Immature Granulocyte Percent A 1.4 % (0-0.5); Lymphocytes Absolute Auto 1.38 K/mm3 (0.9-3.2); Lymphocytes Percent Auto 12.5 % (18.3-44.2); Mean Corpuscular HGB Conc 31.3 g/dl (32-36); Mean Corpuscular Hemoglobin 29.1 pg (26-34); Mean Corpuscular Volume 92.9 fl (80-100); Mean Platelet Volume 10.4 fl (7.4-10.4); Neutrophils Absolute Auto 8.5 K/mm3 (1.3-6.7); Neutrophils Percent Auto 76.8 % (45.5-73.1); Platelet Count Result 190 k/mm3 (150-375); Red Blood Count 5.33 M/mm3 (4.2-5.4); Red Cell Distribution Width 13.9 % (11.5-14.5)
[2024-08-11 06:45] LABS: Alanine Aminotransferase 19 U/L (6-35); Albumin Level 2.7 g/dL (3.5-5.1); Alkaline Phosphatase 133 U/L (38-126); Anion Gap 0 mmol/L (4-12); Aspartate Amino Transferase 46 U/L (14-36); Bilirubin,Total 0.8 mg/dL (0.2-1.3); Blood Urea Nitrogen 23 mg/dL (7-17); Calcium 8.4 mg/dL (8.4-10.2); Carbon Dioxide 36 mmol/L (22-30); Chloride 98 mmol/L (98-107); Estimated CRCL calculation 60 ml/min; Estimated Glomerular Filt Rate > 60; Glucose 101 mg/dL (65-110); Magnesium 2.1 mg/dL (1.6-2.3); Potassium 4.2 mmol/L (3.4-5.0); Sodium 134 mmol/L (137-145)
[2024-08-11] MEDS: IPRATROPIUM BR 0.02% INH SOLN 0.5 MG/2.5 ML VIAL INHALATION (09:00)
[2024-08-11] MEDS: LEVALBUTEROL NEB 1.25 MG/3 ML INHALATION (09:00)
[2024-08-11] MEDS: ROSUVASTATIN 5 MG TABLET BY MOUTH (10:08)
[2024-08-11] MEDS: dilTIAZem HCL CD 120 MG CAP.24HR PO (10:08)
[2024-08-11] MEDS: APIXABAN 5 MG TABLET PO ×2 (10:08→21:36)
[2024-08-11] MEDS: guaiFENesin 12 HR 600 MG TABCR 1200 MG PO ×2 (10:12→21:35)
[2024-08-11] MEDS: METOPROLOL TARTRATE 50 MG TAB 100 MG PO ×2 (10:12→21:36)
[2024-08-11] MEDS: FUROSEMIDE INJ 40 MG/4 ML VIAL IV PUSH (10:13)
--- NOTE | 2024-08-11 14:27 | P.PNIM_ITS ---
Progress Note: A&P Assessment and Plan (1) Influenza A: Code(s): J10.1 - Influenza due to other identified influenza virus with other respiratory manifestations Status: Acute (2) CHF exacerbation: Code(s): I50.9 - Heart failure, unspecified Status: Acute (3) Acute respiratory distress: Code(s): R06.03 - Acute respiratory distress Status: Inactive (4) Atrial fibrillation: Qualifiers: Atrial fibrillation type: unspecified Qualified Code(s): I48.91 - Unspecified atrial fibrillation Code(s): I48.91 - Unspecified atrial fibrillation Status: Acute (5) Hyperlipidemia: Qualifiers: Hyperlipidemia type: mixed hyperlipidemia Qualified Code(s): E78.2 - Mixed hyperlipidemia Code(s): E78.5 - Hyperlipidemia, unspecified Status: Acute (6) Essential hypertension: Code(s): I10 - Essential (primary) hypertension Status: Acute (7) Parkinson's 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, without mention of fluctuations: Qualifiers: Fluctuating manifestations: without fluctuating manifestations Qualified Code(s): G20.A1 - Parkinson's 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, without mention of fluctuations Code(s): G20.A1 - Parkinson's 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, without mention of fluctuations Status: Acute Plan This is an 83-year-old female presents to the ED with increased generalized weakness fatigue and went to urgent care where she was found to be hypoxic. She also reported cough. On the ED evaluation she was hypoxic 84% on room air was placed on 4 L oxygen via nasal cannula mildly tachycardic. AFib on EKG. Laboratory data showed normal WBC 7.8 hemoglobin of 15.4 platelet 186 Chem panel was unremarkable. BNP was elevated at 3840. Influenza RSV COVID swab tested positive for influenza A. Chest x-ray showed mild pulmonary vascular congestion with small bilateral pleural effusion and adjacent compressive atelectasis. Patient on chronic anticoagulation with apixaban. Patient admitted started on Tamiflu for influenza a. Finished course of Tamiflu Acute hypoxic respiratory failure oxygen as tolerated. Pulmonary on board Also treated for acute congestive heart failure. No prior diagnosis of congestive heart failure the she has been worked up for dyspnea on exertion in the past. Cardiology consulted. IV Lasix b.i.d. repeat chest x-ray with improved congestion. Because of atrial fibrillation will change DuoNeb to Xopenex and ipratropium. Droplet isolation to continue. Last echo 2021 with EF 70% trace TR RVSP 37 mild LVH. Repeat echo 08/03/24 with 65-70%. Mild aortic valve stenosis mobile density attached to the posterior annulus of the mitral valve most likely calcified nodule. Echo with bubble study negative. overnight hypoxia still prsent requiring 8l oxygen. Atrial fibrillation with rapid ventricular rate cardiology on board changed to Xopenex continue home metoprolol and Eliquis Hypertension Hyperlipidemia Parkinson's disease Sleep apnea uses oxygen at night. overnight oxygen at 8 Restrictive lung disease with kyphosis plans to get a portable oxygen concen trator in the past per pulmonary note and family. Will need home oxygen evaluation at the time of discharge to evaluate this. Hypothyroidism possible also related to her restrictive lung disease with evidence of kyphosis on her CT scan but no evidence of interstitial lung disease. DVT prophylaxis on Eliquis Code status do not resuscitate Disposition home with home health planned Subjective Date/time seen: 08/11/24 14:27 Interval history: No overnight events . siting up on the chair. breathig is santo.r remains on 2l during the day. apnea link on 8l overnigth reviewed. discussed with pulmonary Review of Systems 2 Review of Systems: All systems reviewed & are unremarkable except as noted in HPI and below Exam Narrative: GENERAL: Frail looking, in no acute distress. Well-nourished. - EYES: EOMI. Anicteric. - HENT: Moist mucous membranes. - LUNGS: Coarse breath sound bilateral base no respiratory distress - CARDIOVASCULAR: Regular rate and rhyth m. No murmur. No JVD. - ABDOMEN: Soft, non-tender and non-dist ended. No palpable masses. - EXTREMITIES: No edema. Peripheral puls es 2+. Non-tender. - NEUROLOGIC: No focal neurological defi cits. CN II-XII grossly intact.General weakness - PSYCHIATRIC: Awake, Alert and oriented x 3. Appropriate mood and affect. - SKIN: No rashes or lesions. Warm. - LYMPH: No cervical lymphadenopathy. Objective Data Vital Signs Vital Signs: Vital Signs - 24 hr 08/10/24 16:00 08/10/24 20:00 08/10/24 20:58 Temperature Pulse Rate 88 96 Respiratory Rate Blood Pressure Pulse Oximetry 93 Oxygen Delivery Nasal Cannula Oxygen Flow Rate 2 08/10/24 20:58 08/10/24 21:16 08/10/24 21:48 Temperature 97.2 F L Pulse Rate 69 87 97 Respiratory Rate 20 12 Blood Pressure 126/67 Pulse Oximetry 93 Oxygen Delivery Oxygen Flow Rate 08/10/24 21:50 08/11/24 00:00 08/11/24 02:08 Temperature Pulse Rate 77 72 Respiratory Rate Blood Pressure Pulse Oximetry 94 Oxygen Delivery High Flow Nasal Cannula Oxygen Flow Rate 8 08/11/24 04:00 08/11/24 05:56 08/11/24 08:00 Temperature 97.1 F L Pulse Rate 80 81 Respiratory Rate 14 Blood Pressure 135/78 Pulse Oximetry 91 91 Oxygen Delivery Nasal Cannula Oxygen Flow Rate 2 08/11/24 08:02 08/11/24 09:02 08/11/24 09:02 Temperature Pulse Rate 78 63 Respiratory Rate 20 Blood Pressure Pulse Oximetry 92 Oxygen Delivery Nasal Cannula Oxygen Flow Rate 2 08/11/24 09:15 08/11/24 10:12 Temperature Pulse Rate 85 100 Respiratory Rate 20 Blood Pressure Pulse Oximetry Oxygen Delivery Oxygen Flow Rate Intake/Output Intake/Output: Intake & Output 08/08/24 08/09/24 08/10/24 08/11/24 23:59 23:59 23:59 23:59 Intake Total 1850 1960 1120 680 Output Total 9903 379 5870 250 Balance 850 1610 120 430 Meds/Results Medications: Active Medications Generic Name Dose Route Start Last Admin Trade Name Freq PRN Reason Stop Dose Admin Acetaminophen 650 mg 07/30/24 16:59 Acetaminophen 325 Mg Tablet PO Q4H PRN Mild Pain (1-3) or Fever Apixaban 5 mg 07/31/24 21:00 08/11/24 10:08 Apixaban 5 Mg Tablet PO 5 mg Q12HR PERFECTO Administration Carbidopa/Levodopa 2 tablet 07/31/24 06:00 08/11/24 05:57 Carbidopa/Levodopa 25/100 Mg Tablet BY MOUTH 2 tablet 0600,1200 PERFECTO Administration Carbidopa/Levodopa 1 tablet 07/30/24 22:55 08/10/24 21:52 Carbidopa/Levodopa 25/100 Mg Tablet BY MOUTH 1 tablet HS PERFECTO Administration Diltiazem HCl 120 mg 08/03/24 12:00 08/11/24 10:08 Diltiazem Hcl Cd 120 Mg Cap.24hr PO 120 mg QAM PERFECTO Administration Furosemide 40 mg 08/09/24 13:05 08/11/24 10:13 Furosemide Inj 40 Mg/4 Ml Vial IV PUSH 40 mg DAILY PERFECTO Administration Guaifenesin 1,200 mg 08/05/24 21:00 08/11/24 10:12 Guaifenesin 12 Hr 600 Mg Tabcr PO 1,200 mg Q12HR PERFECTO Administration Ipratropium [place] 0.5 mg 08/10/24 14:00 08/11/24 13:53 Ipratropium Br 0.02% Inh Soln 0.5 Mg/2.5 Ml Vial INHALATION Not Given TIDRT PERFECTO Levalbuterol HCl 1.25 mg 08/10/24 14:00 08/11/24 13:53 Levalbuterol Neb 1.25 Mg/3 Ml INHALATION Not Given TIDRT PERFECTO Levothyroxine Sodium 112 mcg 07/31/24 06:30 08/11/24 05:57 Levothyroxine Sodium 112 Mcg Tablet PO 112 mcg DAILY@0630 PERFECTO Administration Metoprolol Tartrate 100 mg 07/30/24 22:50 08/11/24 10:12 Metoprolol Tartrate 50 Mg Tab PO 100 mg Q12HR PERFECTO Administration Miscellaneous Information 1 each 08/08/24 00:01 [place] Needs To Be Renewed Or It Will Automatically Discontinue. XX 09/07/24 00:00 CLARIFY [facility] Ondansetron HCl 4 mg 07/30/24 16:59 Ondansetron Inj 4 Mg/2 Ml Vial IV PUSH Q4H PRN Nausea Polyethylene Glycol 17 gm 08/01/24 14:14 08/01/24 14:26 Polyethylene Glycol 3350 17 Gm Powd.Pack PO 17 gm QAM PRN Administration Constipation Rosuvastatin Calcium 5 mg 07/31/24 09:00 08/11/24 10:08 Rosuvastatin 5 Mg Tablet BY MOUTH 5 mg DAILY PERFECTO Administration Radiology Results: ITS Impressions Chest CT 08/05/24 11:26 IMPRESSION: Small left pleural effusion and bilateral areas of atelectasis, most prominent at the base of the left lower lobe Cardiomegaly Chest X-Ray 08/08/24 08:14 Impression: 1: Consolidation of the left mid and lower lung, compatible with pneumonia. 2: Cardiomegaly. 3: Moderate left pleural effusion. Labs Labs: Laboratory Results - last 24 hr 08/11/24 06:16 WBC 11.0 H RBC 5.33 Hgb 15.5 H Hct 49.5 H MCV 92.9 MCH 29.1 MCHC 31.3 L RDW 13.9 Plt Count 190 MPV 10.4 Immature Gran % (Auto) 1.4 H Neut % (Auto) 76.8 H Lymph % (Auto) 12.5 L Burt % (Auto) 9.0 H Eos % (Auto) 0.1 Baso % (Auto) 0.2 Lymph # (Auto) 1.38 [place]urt # (Auto) 1.0 H Eos # (Auto) 0.0 Baso # (Auto) 0.0 Abs Immat Gran (auto) 0.16 H Absolute Neuts (auto) 8.5 H Absolute Nucleated RBC 0.000 Nucleated RBC % 0.0 Sodium 134 L Potassium 4.2 Chloride 98 Carbon Dioxide 36 H Anion Gap 0 L BUN 23 H Creatinine 0.60 L Estim Creat Clear Calc 60 Estimated GFR > 60 Glucose 101 Calcium 8.4 Magnesium 2.1 Total Bilirubin 0.8 AST 46 H ALT 19 Alkaline Phosphatase 133 H Total Protein 5.0 L Albumin 2.7 L
[2024-08-11] MEDS: CARBIDOPA/LEVODOPA 25/100 MG TABLET 1 TABLET BY MOUTH (21:37)
[2024-08-12] VITALS (23 sets, daily range): BP systolic 102–143; BP diastolic 50–71; PULSE 68–107; RESP 16–40; TEMP 36.1–36.4; O2SAT 83–99
[2024-08-12 03:47] LABS: Basophils Percent Auto 0.3 % (0.2-1.2); Hemoglobin 14.8 g/dL (12.0-15.0); Immature Granulocyte Absolute 0.13 K/mm3 (0.00-0.031); Immature Granulocyte Percent A 1.2 % (0-0.5); Lymphocytes Absolute Auto 1.72 K/mm3 (0.9-3.2); Lymphocytes Percent Auto 16.3 % (18.3-44.2); Mean Corpuscular HGB Conc 31.5 g/dl (32-36); Mean Corpuscular Hemoglobin 28.5 pg (26-34); Mean Corpuscular Volume 90.6 fl (80-100); Mean Platelet Volume 10.5 fl (7.4-10.4); Monocytes Percent Auto 9.1 % (2.6-8.5); Neutrophils Absolute Auto 7.7 K/mm3 (1.3-6.7); Neutrophils Percent Auto 73.1 % (45.5-73.1); Platelet Count Result 200 k/mm3 (150-375); Red Blood Count 5.19 M/mm3 (4.2-5.4); Red Cell Distribution Width 13.9 % (11.5-14.5); White Blood Count 10.5 K/mm3 (4.5-10.0)
[2024-08-12 03:50] LABS: Alveolar/Arterial O2 Gradient 620.9 mmHg; Base Excess ABG 5.1 mEq/l (+/-2.0); Carboxyhemoglobin 0.5 % THb (0-2.0); Fractional Inspired Oxygen 100 %; HCO3 ABG 29.5 mEq/l (22.0-26.0); Methemoglobin ABG 0.1 %THb (0-1.5); Oxygen Content ABG 19.2 %vol (16.0-22.0); PCO2 ABG 42.2 mmHg (35.0-45.0); PO2 ABG 49.9 mmHg (80.0-100.0); Reduced Hemoglobin 12.3 %THb (0-5.0); Total Hemoglobin 15.7 g/dL (12.0-18.0); pH ABG 7.462 (7.350-7.450)
[2024-08-12 03:56] LABS: Oxygen Saturation ABG 87.3 % (95.0-100.0)
[2024-08-12 03:57] LABS: Device HIGH FLOW NASAL CANN; Oxyhemoglobin 87.1 % THb (90.0-100.0); Site Drawn RIGHT BRACHIAL
[2024-08-12 04:00] LABS: Phosphorus 3.2 mg/dL (2.5-4.5)
[2024-08-12 04:04] LABS: Alanine Aminotransferase 13 U/L (6-35); Albumin Level 2.8 g/dL (3.5-5.1); Alkaline Phosphatase 128 U/L (38-126); Aspartate Amino Transferase 38 U/L (14-36); Bilirubin,Total 0.8 mg/dL (0.2-1.3); Blood Urea Nitrogen 21 mg/dL (7-17); Calcium 8.5 mg/dL (8.4-10.2); Chloride 97 mmol/L (98-107); Estimated CRCL calculation 59 ml/min; Estimated Glomerular Filt Rate > 60; Glucose 104 mg/dL (65-110); Magnesium 1.9 mg/dL (1.6-2.3); Potassium 3.7 mmol/L (3.4-5.0); Sodium 136 mmol/L (137-145)
--- NOTE | 2024-08-12 04:16 | P.PNCROSS_ITS ---
Event Note Event Note Event Note: Rapid response was called to patient's room after being found in severe respira tory distress with low pulse oxygenation on on 2 L of nasal cannula patient placed on 10 L non-rebreather. Objective: Patient in respiratory distress on 10 L of oxygen by nasal cannula plus non-rebreather. Subjective: Respiratory distress Oxygen saturation 81% on arrival increased to 95% General: Ill-appearing, respiratory distress. 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 Severe respiratory distress: Placed on BiPAP. ABG, CBC, BMP, Mag, phos, lactic acid chest x-ray. Patient is started on cefepime and vancomycin 2. Pneumonia: Started on cefepime and vancomycin
[2024-08-12 04:17] LABS: Glucose Point of Care 94 mg/dl (65-105)
[2024-08-12] MEDS: FUROSEMIDE INJ 40 MG/4 ML VIAL IV PUSH ×2 (04:29→11:00)
[2024-08-12] MEDS: CEFEPIME 1 GM/NS 50 ML 1 GM/50 ML BAG IVPB ×2 (04:30→16:15)
[2024-08-12 04:31] LABS: Anion Gap 6 mmol/L (4-12); Carbon Dioxide 33 mmol/L (22-30)
[2024-08-12] MEDS: MORPHINE SULFATE (*CRX) 2 MG/ML INJ 1 MG IV PUSH (04:39)
[2024-08-12] MEDS: VANCOMYCIN 1,750 MG/NS 500 ML 1,750 MG/500 ML BAG 250 MG IVPB (05:49)
[2024-08-12] MEDS: CARBIDOPA/LEVODOPA 25/100 MG TABLET 2 TABLET BY MOUTH ×2 (06:04→15:12)
[2024-08-12] MEDS: LEVOTHYROXINE SODIUM 112 MCG TABLET PO (06:04)
[2024-08-12] MEDS: LEVALBUTEROL NEB 1.25 MG/3 ML INHALATION ×3 (07:42→20:02)
[2024-08-12] MEDS: IPRATROPIUM BR 0.02% INH SOLN 0.5 MG/2.5 ML VIAL INHALATION ×3 (07:42→20:02)
[2024-08-12 08:34] LABS: NT Pro B Type Natriuretic Pept 5380 pg/mL (19.9-100)
[2024-08-12 09:17] LABS: MRSA (PCR) NOT DETECTED (NOT DETECTE)
--- NOTE | 2024-08-12 09:32 | PCOTNOTE ---
Attempted to see pt for OT treatment. Per RN, pt is not appropriate for therapy at this time due to being currently on bipap and trying to wean off of it right now. Will attempt when appropriate.
[2024-08-12 10:23] LABS: Procalcitonin 0.1 ng/mL
[2024-08-12] MEDS: APIXABAN 5 MG TABLET PO (10:59)
[2024-08-12] MEDS: dilTIAZem HCL CD 120 MG CAP.24HR PO (10:59)
[2024-08-12] MEDS: guaiFENesin 12 HR 600 MG TABCR 1200 MG PO ×2 (11:00→20:47)
[2024-08-12] MEDS: METOPROLOL TARTRATE 50 MG TAB 100 MG PO ×2 (11:00→20:48)
[2024-08-12] MEDS: ROSUVASTATIN 5 MG TABLET BY MOUTH (11:01)
--- NOTE | 2024-08-12 12:16 | P.PNIM_ITS ---
Progress Note: A&P Assessment and Plan (1) Influenza A: Code(s): J10.1 - Influenza due to other identified influenza virus with other respiratory manifestations Status: Acute (2) CHF exacerbation: Code(s): I50.9 - Heart failure, unspecified Status: Acute (3) Acute respiratory distress: Code(s): R06.03 - Acute respiratory distress Status: Inactive (4) Atrial fibrillation: Qualifiers: Atrial fibrillation type: unspecified Qualified Code(s): I48.91 - Unspecified atrial fibrillation Code(s): I48.91 - Unspecified atrial fibrillation Status: Acute (5) Hyperlipidemia: Qualifiers: Hyperlipidemia type: mixed hyperlipidemia Qualified Code(s): E78.2 - Mixed hyperlipidemia Code(s): E78.5 - Hyperlipidemia, unspecified Status: Acute (6) Essential hypertension: Code(s): I10 - Essential (primary) hypertension Status: Acute (7) Parkinson's 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, without mention of fluctuations: Qualifiers: Fluctuating manifestations: without fluctuating manifestations Qualified Code(s): G20.A1 - Parkinson's 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, without mention of fluctuations Code(s): G20.A1 - Parkinson's 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, without mention of fluctuations Status: Acute Plan This is an 83-year-old female presents to the ED with increased generalized weakness fatigue and went to urgent care where she was found to be hypoxic. She also reported cough. On the ED evaluation she was hypoxic 84% on room air was placed on 4 L oxygen via nasal cannula mildly tachycardic. AFib on EKG. Laboratory data showed normal WBC 7.8 hemoglobin of 15.4 platelet 186 Chem panel was unremarkable. BNP was elevated at 3840. Influenza RSV COVID swab tested positive for influenza A. Chest x-ray showed mild pulmonary vascular congestion with small bilateral pleural effusion and adjacent compressive atelectasis. Patient on chronic anticoagulation with apixaban. Patient admitted started on Tamiflu for influenza a. Finished course of Tamiflu Acute hypoxic respiratory failure oxygen as tolerated. Pulmonary on board Also treated for acute congestive heart failure. No prior diagnosis of congestive heart failure the she has been worked up for dyspnea on exertion in the past. Cardiology consulted. IV Lasix b.i.d. repeat chest x-ray with improved congestion. Because of atrial fibrillation will change DuoNeb to Xopenex and ipratropium. Droplet isolation to continue. Last echo 2021 with EF 70% trace TR RVSP 37 mild LVH. Repeat echo 08/03/24 with 65-70%. Mild aortic valve stenosis mobile density attached to the posterior annulus of the mitral valve most likely calcified nodule. Echo with bubble study negative. overnight hypoxia still prsent requiring 8l oxygen. Decompensates again 08/11/2024 requiring bipap. cxr with worsening effusion vs pneumonia on left lobe. will get ct chest to delineate. if effusion, will plan to perform thoracentesis. in anticipation, will hold eliquis today. Atrial fibrillation with rapid ventricular rate cardiology on board changed to Xopenex continue home metoprolol and Eliquis Hypertension Hyperlipidemia Parkinson's disease Sleep apnea uses oxygen at night. overnight oxygen at 8 Restrictive lung disease with kyphosis plans to get a portable oxygen concentrator in the past per pulmonary note and family. Will need home oxygen evaluation at the time of discharge to evaluate this. Hypothyroidism possible also related to her restrictive lung disease with evidence of kyphosis on her CT scan but no evidence of interstitial lung disease. DVT prophylaxis on Eliquis Code status do not resuscitate Disposition home with home health planned Subjective Date/time seen: 08/12/24 12:16 Interval history: overnight events noted. patient off bipap this am and placed on 10 l oxygen. has intermittent cough. feels okay. ate her breakfast. daughter at bedside. Review of Systems Review of Systems: All systems reviewed & are unremarkable except as noted in HPI and below Exam Narrative: GENERAL: Frail looking, in no acute distress. Well-nourished. - EYES: EOMI. Anicteric. - HENT: Moist mucous membranes. - LUNGS: Coarse breath sound bilateral base no respiratory distress - CARDIOVASCULAR: Regular rate and rhyth m. No murmur. No JVD. - ABDOMEN: Soft, non-tender and non-dist ended. No palpable masses. - EXTREMITIES: No edema. Peripheral puls es 2+. Non-tender. - NEUROLOGIC: No focal neurological defi cits. CN II-XII grossly intact.General weakness - PSYCHIATRIC: Awake, Alert and oriented x 3. Appropriate mood and affect. - SKIN: No rashes or lesions. Warm. - LYMPH: No cervical lymphadenopathy. Objective Data Vital Signs Vital Signs: Vital Signs - 24 hr 08/11/24 14:50 08/11/24 15:22 08/11/24 16:02 Temperature 97.4 F L Pulse Rate 80 77 Respiratory Rate 16 Blood Pressure 105/66 Pulse Oximetry 92 91 Oxygen Delivery Nasal Cannula Oxygen Flow Rate 5 08/11/24 16:02 08/11/24 20:00 08/11/24 21:36 Temperature Pulse Rate 77 73 76 Respiratory Rate Blood Pressure Pulse Oximetry Oxygen Delivery Oxygen Flow Rate 08/11/24 21:47 08/12/24 00:00 08/12/24 03:35 Temperature 98.3 F Pulse Rate 79 69 94 Respiratory Rate 20 Blood Pressure 132/61 143/69 H Pulse Oximetry 92 83 L Oxygen Delivery Oxygen Flow Rate 08/12/24 03:35 08/12/24 03:59 08/12/24 04:00 Temperature Pulse Rate 94 72 76 Respiratory Rate 37 H Blood Pressure 143/69 H Pulse Oximetry 85 L 95 Oxygen Delivery High Flow Therapy with Fa BiPAP Oxygen Flow Rate 10 08/12/24 05:26 08/12/24 07:42 08/12/24 07:42 Temperature 97.5 F L Pulse Rate 86 80 80 Respiratory Rate 24 H 32 H 32 H Blood Pressure 107/63 Pulse Oximetry 97 98 Oxygen Delivery BiPAP Oxygen Flow Rate 08/12/24 08:02 08/12/24 08:08 08/12/24 08:08 Temperature Pulse Rate 87 83 83 Respiratory Rate 40 H 40 H Blood Pressure Pulse Oximetry 98 Oxygen Delivery BiPAP Oxygen Flow Rate 08/12/24 10:59 08/12/24 11:00 08/12/24 12:02 Temperature Pulse Rate 104 H 107 H Respiratory Rate Blood Pressure 120/70 Pulse Oximetry Oxygen Delivery Oxygen Flow Rate Intake/Output Intake/Output: Intake & Output 08/09/24 08/10/24 08/11/24 08/12/24 23:59 23:59 23:59 23:59 Intake Total 1960 1120 1080 680 Output Total 350 1000 1000 650 Balance 1610 120 80 30 Meds/Results Medications: Active Medications Generic Name Dose Route Start Last Admin Trade Name Freq PRN Reason Stop Dose Admin Acetaminophen 650 mg 07/30/24 16:59 Acetaminophen 325 Mg Tablet PO Q4H PRN Mild Pain (1-3) or Fever Apixaban 5 mg 07/31/24 21:00 08/12/24 10:59 Apixaban 5 Mg Tablet PO 5 mg Q12HR PERFECTO Administration Carbidopa/Levodopa 2 tablet 07/31/24 06:00 08/12/24 06:04 Carbidopa/Levodopa 25/100 Mg Tablet BY MOUTH 2 tablet 0600,1200 PERFECTO Administration Carbidopa/Levodopa 1 tablet 07/30/24 22:55 08/11/24 21:37 Carbidopa/Levodopa 25/100 Mg Tablet BY MOUTH 1 tablet HS PERFECTO Administration Diltiazem HCl 120 mg 08/03/24 12:00 08/12/24 10:59 Diltiazem Hcl Cd 120 Mg Cap.24hr PO 120 mg QAM PERFECTO Administration Furosemide 40 mg 08/09/24 13:05 08/12/24 11:00 Furosemide Inj 40 Mg/4 Ml Vial IV PUSH 40 mg DAILY PERFECTO Administration Guaifenesin 1,200 mg 08/05/24 21:00 08/12/24 11:00 Guaifenesin 12 Hr 600 Mg Tabcr PO 1,200 mg Q12HR PERFECTO Administration Cefepime HCl 1 gm in 50 mls @ 100 mls/hr 08/12/24 16:00 Maxipime 1 Gm/Ns 50 Ml IVPB Q12H PERFECTO Vancomycin HCl 1,250 mg in 250 mls @ 166.667 mls/hr 08/13/24 06:00 Vancomycin 1,250 Mg/Ns 250 Ml IVPB Q24H PERFECTO Ipratropium [place] 0.5 mg 08/10/24 14:00 08/12/24 07:42 Ipratropium Br 0.02% Inh Soln 0.5 Mg/2.5 Ml Vial INHALATION 0.5 mg TIDRT PERFECTO Administration Levalbuterol HCl 1.25 mg 08/10/24 14:00 08/12/24 07:42 Levalbuterol Neb 1.25 Mg/3 Ml INHALATION 1.25 mg TIDRT PERFECTO Administration Levothyroxine Sodium 112 mcg 07/31/24 06:30 08/12/24 06:04 Levothyroxine Sodium 112 Mcg Tablet PO 112 mcg DAILY@0630 PERFECTO Administration Metoprolol Tartrate 100 mg 07/30/24 22:50 08/12/24 11:00 Metoprolol Tartrate 50 Mg Tab PO 100 mg Q12HR PERFECTO Administration Miscellaneous Information 1 each 08/08/24 00:01 [place] Needs To Be Renewed Or It Will Automatically Discontinue. XX 09/07/24 00:00 [facility] Ondansetron HCl 4 mg 07/30/24 16:59 Ondansetron Inj 4 Mg/2 Ml Vial IV PUSH Q4H PRN Nausea Polyethylene Glycol 17 gm 08/01/24 14:14 08/01/24 14:26 Polyethylene Glycol 3350 17 Gm Powd.Pack PO 17 gm QAM PRN Administration Constipation Rosuvastatin Calcium 5 mg 07/31/24 09:00 08/12/24 11:01 Rosuvastatin 5 Mg Tablet BY MOUTH 5 mg DAILY [facility] Administration Radiology Results: ITS Impressions Chest X-Ray 08/12/24 06:35 IMPRESSION: Increased atelectasis/prominent consolidation of the left mid and lower lung zones and left pleural effusion Mild infiltrate or atelectasis in the right lower lung field and small right pleural effusion Labs Labs: Laboratory Results - last 24 hr 08/12/24 08/12/24 08/12/24 03:27 03:32 03:36 WBC RBC Hgb Hct MCV MCH MCHC RDW Plt Count MPV Immature Gran % (Auto) Neut % (Auto) Lymph % (Auto) [place] % (Auto) Eos % (Auto) Baso % (Auto) Lymph # (Auto) [place] # (Auto) Eos # (Auto) Baso # (Auto) Abs Immat Gran (auto) Absolute Neuts (auto) Absolute Nucleated RBC Nucleated RBC % Puncture Site Right brachial ABG pH 7.462 H ABG pCO2 42.2 ABG pO2 49.9 L ABG PO2/FiO2 Ratio 0.50 ABG HCO3 29.5 H ABG O2 Saturation 87.3 L* ABG O2 Content 19.2 ABG Base Excess 5.1 A-a Gradient 620.9 Oxyhemoglobin 87.1 L* Carboxyhemoglobin 0.5 Methemoglobin 0.1 Reduced Hemoglobin 12.3 H Total Hemoglobin 15.7 O2 Delivery Device High flow [place] O2 Liters/Min 13.0 FiO2 100 Sodium Potassium Chloride Carbon Dioxide Anion Gap BUN Creatinine Estim Creat Clear Calc Estimated GFR Glucose POC Capillary Glucose 94 Lactic Acid Calcium Phosphorus Magnesium Total Bilirubin AST ALT Alkaline Phosphatase NT-Pro-B Natriuret Pep 5380 H Total Protein Albumin Procalcitonin Nasal MRSA (PCR) 08/12/24 08/12/24 08/12/24 03:37 03:41 03:41 WBC 10.5 H RBC 5.19 Hgb 14.8 Hct 47.0 MCV 90.6 MCH 28.5 MCHC 31.5 L RDW 13.9 Plt Count 200 MPV 10.5 H Immature Gran % (Auto) 1.2 H Neut % (Auto) 73.1 Lymph % (Auto) 16.3 L [place] % (Auto) 9.1 H Eos % (Auto) 0.0 Baso % (Auto) 0.3 Lymph # (Auto) 1.72 [place] # (Auto) 1.0 H Eos # (Auto) 0.0 Baso # (Auto) 0.0 Abs Immat Gran (auto) 0.13 H Absolute Neuts (auto) 7.7 H Absolute Nucleated RBC 0.000 Nucleated RBC % 0.0 Puncture Site ABG pH ABG pCO2 ABG pO2 ABG PO2/FiO2 Ratio ABG HCO3 ABG O2 Saturation ABG O2 Content ABG Base Excess A-a Gradient Oxyhemoglobin Carboxyhemoglobin Methemoglobin Reduced Hemoglobin Total Hemoglobin O2 Delivery Device O2 Liters/Min FiO2 Sodium 136 L Potassium 3.7 Chloride 97 L Carbon Dioxide 33 H Anion Gap 6 BUN 21 H Creatinine 0.62 L Estim Creat Clear Calc 59 Estimated GFR > 60 Glucose 104 POC Capillary Glucose Lactic Acid Calcium 8.5 Phosphorus Cancelled 3.2 Magnesium 1.9 Total Bilirubin 0.8 AST 38 H ALT 13 Alkaline Phosphatase 128 H NT-Pro-B Natriuret Pep Total Protein 6.0 L Albumin 2.8 L Procalcitonin 0.1 Nasal MRSA (PCR) 08/12/24 08/12/24 03:48 07:57 WBC RBC Hgb Hct MCV MCH MCHC RDW Plt Count MPV Immature Gran % (Auto) Neut % (Auto) Lymph % (Auto) [place] % (Auto) Eos % (Auto) Baso % (Auto) Lymph # (Auto) [place] # (Auto) Eos # (Auto) Baso # (Auto) Abs Immat Gran (auto) Absolute Neuts (auto) Absolute Nucleated RBC Nucleated RBC % Puncture Site ABG pH ABG pCO2 ABG pO2 ABG PO2/FiO2 Ratio ABG HCO3 ABG O2 Saturation ABG O2 Content ABG Base Excess A-a Gradient Oxyhemoglobin Carboxyhemoglobin Methemoglobin Reduced Hemoglobin Total Hemoglobin O2 Delivery Device O2 Liters/Min FiO2 Sodium Potassium Chloride Carbon Dioxide Anion Gap BUN Creatinine Estim Creat Clear Calc Estimated GFR Glucose POC Capillary Glucose Lactic Acid 1.0 Calcium Phosphorus Magnesium Total Bilirubin AST ALT Alkaline Phosphatase NT-Pro-B Natriuret Pep Total Protein Albumin Procalcitonin Nasal MRSA (PCR) Not detected
[2024-08-12] MEDS: DOXYCYCLINE 100 MG/NS 100 ML 100 MG/100 ML BAG IVPB ×2 (15:09→20:48)
[2024-08-12] MEDS: CARBIDOPA/LEVODOPA 25/100 MG TABLET 1 TABLET BY MOUTH (20:48)
[2024-08-13] VITALS (16 sets, daily range): BP systolic 106–126; BP diastolic 52–60; PULSE 57–111; RESP 14–28; TEMP 36.1–37.3; O2SAT 93–98
[2024-08-13] MEDS: CEFEPIME 1 GM/NS 50 ML 1 GM/50 ML BAG IVPB ×2 (04:30→16:13)
[2024-08-13] MEDS: LEVOTHYROXINE SODIUM 112 MCG TABLET PO (05:31)
[2024-08-13] MEDS: CARBIDOPA/LEVODOPA 25/100 MG TABLET 2 TABLET BY MOUTH (05:31)
[2024-08-13] MEDS: VANCOMYCIN 1,250 MG/NS 250 ML 1,250 MG/250 ML BAG 166.67 MG IVPB (05:31)
[2024-08-13 06:41] LABS: Basophils Percent Auto 0.2 % (0.2-1.2); Hematocrit 46.4 % (37.0-47.0); Hemoglobin 14.6 g/dL (12.0-15.0); Immature Granulocyte Absolute 0.12 K/mm3 (0.00-0.031); Immature Granulocyte Percent A 1.2 % (0-0.5); Lymphocytes Percent Auto 9.9 % (18.3-44.2); Mean Corpuscular HGB Conc 31.5 g/dl (32-36); Mean Corpuscular Hemoglobin 28.9 pg (26-34); Mean Corpuscular Volume 91.9 fl (80-100); Mean Platelet Volume 10.5 fl (7.4-10.4); Monocytes Absolute Auto 0.9 K/mm3 (0.1-0.6); Monocytes Percent Auto 9.1 % (2.6-8.5); Neutrophils Percent Auto 79.6 % (45.5-73.1); Platelet Count Result 193 k/mm3 (150-375); Red Blood Count 5.05 M/mm3 (4.2-5.4); Red Cell Distribution Width 14.3 % (11.5-14.5); White Blood Count 10.1 K/mm3 (4.5-10.0)
[2024-08-13 06:55] LABS: Alanine Aminotransferase 9 U/L (6-35); Albumin Level 2.8 g/dL (3.5-5.1); Alkaline Phosphatase 120 U/L (38-126); Aspartate Amino Transferase 37 U/L (14-36); Bilirubin,Total 0.9 mg/dL (0.2-1.3); Blood Urea Nitrogen 22 mg/dL (7-17); Calcium 8.2 mg/dL (8.4-10.2); Chloride 98 mmol/L (98-107); Estimated CRCL calculation 56 ml/min; Estimated Glomerular Filt Rate > 60; Glucose 102 mg/dL (65-110); Magnesium 1.7 mg/dL (1.6-2.3); Potassium 3.6 mmol/L (3.4-5.0); Sodium 136 mmol/L (137-145)
[2024-08-13 07:31] LABS: Anion Gap 2 mmol/L (4-12); Carbon Dioxide 36 mmol/L (22-30)
[2024-08-13] MEDS: guaiFENesin 12 HR 600 MG TABCR 1200 MG PO ×2 (09:09→21:38)
[2024-08-13] MEDS: METOPROLOL TARTRATE 50 MG TAB 100 MG PO ×2 (09:09→21:38)
[2024-08-13] MEDS: dilTIAZem HCL CD 120 MG CAP.24HR PO (09:09)
[2024-08-13] MEDS: ROSUVASTATIN 5 MG TABLET BY MOUTH (09:09)
[2024-08-13] MEDS: DOXYCYCLINE 100 MG/NS 100 ML 100 MG/100 ML BAG IVPB ×2 (09:10→21:38)
[2024-08-13] MEDS: FUROSEMIDE INJ 40 MG/4 ML VIAL IV PUSH (09:11)
--- NOTE | 2024-08-13 11:26 | P.PNIM_ITS ---
Progress Note: A&P Assessment and Plan (1) Influenza A: Code(s): J10.1 - Influenza due to other identified influenza virus with other respiratory manifestations Status: Acute (2) CHF exacerbation: Code(s): I50.9 - Heart failure, unspecified Status: Acute (3) Acute respiratory distress: Code(s): R06.03 - Acute respiratory distress Status: Inactive (4) Atrial fibrillation: Qualifiers: Atrial fibrillation type: unspecified Qualified Code(s): I48.91 - Unspecified atrial fibrillation Code(s): I48.91 - Unspecified atrial fibrillation Status: Acute (5) Hyperlipidemia: Qualifiers: Hyperlipidemia type: mixed hyperlipidemia Qualified Code(s): E78.2 - Mixed hyperlipidemia Code(s): E78.5 - Hyperlipidemia, unspecified Status: Acute (6) Essential hypertension: Code(s): I10 - Essential (primary) hypertension Status: Acute (7) Parkinson's 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, without mention of fluctuations: Qualifiers: Fluctuating manifestations: without fluctuating manifestations Qualified Code(s): G20.A1 - Parkinson's 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, without mention of fluctuations Code(s): G20.A1 - Parkinson's 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, without mention of fluctuations Status: Acute Plan This is an 83-year-old female presents to the ED with increased generalized weakness fatigue and went to urgent care where she was found to be hypoxic. She also reported cough.On the ED evaluation she was hypoxic 84% on room air was placed on 4 L oxygen via nasal cannula mildly tachycardic. AFib on EKG.Laboratory data showed normal WBC 7.8 hemoglobin of 15.4 platelet 186 Chem panel was unremarkable. BNP was elevated at 3840. Influenza RSV COVID swab tested positive for influenza A. Chest x-ray showed mild pulmonary vascular congestion with small bilateral pleural effusion and adjacent compressive atelectasis. Patient on chronic anticoagulation with apixaban. Acute respiratory failure with hypoxemia Possible due to influenza infection and superimposed acute heart failure, pneumonia and pleural effusion Patient admitted started on Tamiflu for influenza a. Finished course of Tamiflu Acute hypoxic respiratory failure oxygen as tolerated. Because of atrial fibrillation will change DuoNeb to Xopenex and ipratropium. Droplet isolation to continue. Pulmonary on board Decompensates again 08/11/2024 requiring bipap. Influenza a infection Finished Tamiflu all Large left pleural effusion and adjacent consultation Suggesting possible pneumonia Unclear etiology of pleural effusion overnight hypoxia still prsent requiring 8l oxygen. May need thoracentesis. hold eliquis today. 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 No prior diagnosis of congestive heart failure the she has been worked up for dyspnea on exertion in the past. Cardiology consulted. IV Lasix b.i.d. repeat chest x-ray with improved congestion. echo 2021 with EF 70% trace TR RVSP 37 mild LVH. Repeat echo 08/03/24 with 65- 70%. Mild aortic valve stenosis mobile density attached to the posterior annulus of the mitral valve most likely calcified nodule. Echo with bubble study negative. Atrial fibrillation with rapid ventricular rate cardiology on board changed to Xopenex continue home metoprolol and Eliquis Hold blood thinner for thoracentesis Hypertension Hyperlipidemia Parkinson's disease Sleep apnea uses oxygen at night. overnight oxygen at 8 Restrictive lung disease with kyphosis plans to get a portable oxygen concentrator in the past per pulmonary note and family. Will need home oxygen evaluation at the time of discharge to evaluate this. Hypothyroidism possible also related to her restrictive lung disease with evidence of kyphosis on her CT scan but no evidence of interstitial lung disease. DVT prophylaxis on Eliquis Code status do not resuscitate Disposition home with home health planned Subjective Date/time seen: 08/13/24 11:26 Interval history: I saw exam patient today. Patient still has shortness breath with mild exertion. Has cough with scant phlegm. Denies fever or chills. Patient is on a L oxygen per minutes, pulse ox 95-98, patient has tachypnea, has intermittent cough. feels okay. ate her breakfast. daughter at bedside. Leukocytosis trending down, 10,100 Exam Narrative: GENERAL: Frail looking, in no acute distress. Well-nourished. - EYES: EOMI. Anicteric. - HENT: Moist mucous membranes. - LUNGS: Coarse breath sound bilateral base no respiratory distress, diminished breath sounds left lower chest - CARDIOVASCULAR: Regular rate and rhyth m. No murmur. No JVD. - ABDOMEN: Soft, non-tender and non-dist ended. No palpable masses. - EXTREMITIES: No edema. Peripheral puls es 2+. Non-tender. - NEUROLOGIC: No focal neurological defi cits. CN II-XII grossly intact.General weakness - PSYCHIATRIC: Awake, Alert and oriented x 3. Appropriate mood and affect. - SKIN: No rashes or lesions. Warm. - LYMPH: No cervical lymphadenopathy. Objective Data Vital Signs Vital Signs: Vital Signs - 24 hr 08/12/24 11:45 08/12/24 12:02 08/12/24 14:20 Temperature Pulse Rate 107 H Respiratory Rate Blood Pressure Pulse Oximetry 96 97 Oxygen Delivery High Flow Nasal Cannula High Flow Nasal Cannula Oxygen Flow Rate 10 10 08/12/24 14:23 08/12/24 14:23 08/12/24 14:35 Temperature 96.9 F L Pulse Rate 87 81 Respiratory Rate 32 H 16 Blood Pressure 134/71 Pulse Oximetry 94 95 Oxygen Delivery High Flow Nasal Cannula Oxygen Flow Rate 8 08/12/24 14:37 08/12/24 16:03 08/12/24 16:35 Temperature Pulse Rate 84 71 Respiratory Rate 30 H Blood Pressure Pulse Oximetry 94 Oxygen Delivery High Flow Nasal Cannula Oxygen Flow Rate 8 08/12/24 20:02 08/12/24 20:14 08/12/24 20:35 Temperature Pulse Rate 77 79 Respiratory Rate 26 H 28 H Blood Pressure Pulse Oximetry 90 Oxygen Delivery High Flow Nasal Cannula Oxygen Flow Rate 9 08/12/24 20:45 08/12/24 20:45 08/12/24 20:45 Temperature 97.6 F Pulse Rate 68 73 Respiratory Rate 28 H 28 H Blood Pressure 102/50 L Pulse Oximetry 92 92 Oxygen Delivery High Flow Nasal Cannula Oxygen Flow Rate 9 08/13/24 00:00 08/13/24 04:00 08/13/24 06:00 Temperature 97.0 F L Pulse Rate 57 L 71 95 Respiratory Rate 22 H Blood Pressure 126/60 Pulse Oximetry 95 Oxygen Delivery Oxygen Flow Rate 08/13/24 08:00 08/13/24 09:05 08/13/24 09:09 Temperature Pulse Rate 91 94 Respiratory Rate Blood Pressure Pulse Oximetry 98 Oxygen Delivery High Flow Nasal Cannula Oxygen Flow Rate 8 Intake/Output Intake/Output: Intake & Output 08/10/24 08/11/24 08/12/24 08/13/24 23:59 23:59 23:59 23:59 Intake Total 1120 1080 1170 990 Output Total 1000 1098 639 8118 Balance 120 80 520 -10 Meds/Results Medications: Active Medications Generic Name Dose Route Start Last Admin Trade Name Freq PRN Reason Stop Dose Admin Acetaminophen 650 mg 07/30/24 16:59 Acetaminophen 325 Mg Tablet PO Q4H PRN Mild Pain (1-3) or Fever Apixaban 5 mg 07/31/24 21:00 08/12/24 10:59 Apixaban 5 Mg Tablet PO 5 mg Q12HR PERFECTO Administration Carbidopa/Levodopa 2 tablet 07/31/24 06:00 08/13/24 05:31 Carbidopa/Levodopa 25/100 Mg Tablet BY MOUTH 2 tablet 0600,1200 PERFECTO Administration Carbidopa/Levodopa 1 tablet 07/30/24 22:55 08/12/24 20:48 Carbidopa/Levodopa 25/100 Mg Tablet BY MOUTH 1 tablet HS PERFECTO Administration Diltiazem HCl 120 mg 08/03/24 12:00 08/13/24 09:09 Diltiazem Hcl Cd 120 Mg Cap.24hr PO 120 mg QAM PERFECTO Administration Furosemide 40 mg 08/09/24 13:05 08/13/24 09:11 Furosemide Inj 40 Mg/4 Ml Vial IV PUSH 40 mg DAILY PERFECTO Administration Guaifenesin 1,200 mg 08/05/24 21:00 08/13/24 09:09 Guaifenesin 12 Hr 600 Mg Tabcr PO 1,200 mg Q12HR PERFECTO Administration Cefepime HCl 1 gm in 50 mls @ 100 mls/hr 08/12/24 16:00 08/13/24 05:00 Maxipime 1 Gm/Ns 50 Ml IVPB Infused Q12H PERFECTO Infusion Vancomycin HCl 1,250 mg in 250 mls @ 166.667 mls/hr 08/13/24 06:00 08/13/24 07:10 Vancomycin 1,250 Mg/Ns 250 Ml IVPB Infused Q24H PERFECTO Infusion Doxycycline Hyclate 100 mg in 100 mls @ 100 mls/hr 08/12/24 12:30 08/13/24 10:10 Vibramycin 100 Mg/Ns 100 Ml IVPB Infused Q12HR PERFECTO Infusion Ipratropium [place] 0.5 mg 08/10/24 14:00 08/13/24 10:05 Ipratropium Br 0.02% Inh Soln 0.5 Mg/2.5 Ml Vial INHALATION Not Given TIDRT PERFECTO Levalbuterol HCl 1.25 mg 08/10/24 14:00 08/13/24 10:04 Levalbuterol Neb 1.25 Mg/3 Ml INHALATION Not Given TIDRT PERFECTO Levothyroxine Sodium 112 mcg 07/31/24 06:30 08/13/24 05:31 Levothyroxine Sodium 112 Mcg Tablet PO 112 mcg DAILY@0630 PERFECTO Administration Metoprolol Tartrate 100 mg 07/30/24 22:50 08/13/24 09:09 Metoprolol Tartrate 50 Mg Tab PO 100 mg Q12HR PERFECTO Administration Ondansetron HCl 4 mg 07/30/24 16:59 Ondansetron Inj 4 Mg/2 Ml Vial IV PUSH Q4H PRN Nausea Polyethylene Glycol 17 gm 08/01/24 14:14 08/01/24 14:26 Polyethylene Glycol 3350 17 Gm Powd.Pack PO 17 gm QAM PRN Administration Constipation Rosuvastatin Calcium 5 mg 07/31/24 09:00 08/13/24 09:09 Rosuvastatin 5 Mg Tablet BY MOUTH 5 mg DAILY PERFECTO Administration Radiology Results: ITS Impressions Chest X-Ray 08/12/24 06:35 IMPRESSION: Increased atelectasis/prominent consolidation of the left mid and lower lung zones and left pleural effusion Mild infiltrate or atelectasis in the right lower lung field and small right pleural effusion Chest CT 08/12/24 21:07 IMPRESSION: Large left and small right-sided pleural effusions with adjacent consolidation. Labs Labs: Laboratory Results - last 24 hr 08/13/24 06:15 WBC 10.1 H RBC 5.05 Hgb 14.6 Hct 46.4 MCV 91.9 MCH 28.9 MCHC 31.5 L RDW 14.3 Plt Count 193 MPV 10.5 H Immature Gran % (Auto) 1.2 H Neut % (Auto) 79.6 H Lymph % (Auto) 9.9 L [place] % (Auto) 9.1 H Eos % (Auto) 0.0 Baso % (Auto) 0.2 Lymph # (Auto) 1.00 [place] # (Auto) 0.9 H Eos # (Auto) 0.0 Baso # (Auto) 0.0 Abs Immat Gran (auto) 0.12 H Absolute Neuts (auto) 8.0 H Absolute Nucleated RBC 0.000 Nucleated RBC % 0.0 Sodium 136 L Potassium 3.6 Chloride 98 Carbon Dioxide 36 H Anion Gap 2 L BUN 22 H Creatinine 0.66 L Estim Creat Clear Calc 56 Estimated GFR > 60 Glucose 102 Calcium 8.2 L Magnesium 1.7 Total Bilirubin 0.9 AST 37 H ALT 9 Alkaline Phosphatase 120 Total Protein 6.0 L Albumin 2.8 L
[2024-08-13] MEDS: LEVALBUTEROL NEB 1.25 MG/3 ML INHALATION ×2 (14:45→21:06)
[2024-08-13] MEDS: IPRATROPIUM BR 0.02% INH SOLN 0.5 MG/2.5 ML VIAL INHALATION ×2 (14:45→21:06)
[2024-08-13] MEDS: CARBIDOPA/LEVODOPA 25/100 MG TABLET 1 TABLET BY MOUTH (21:38)
[2024-08-14] VITALS (18 sets, daily range): BP systolic 126–149; BP diastolic 72–85; PULSE 63–107; RESP 18–22; TEMP 36.4–36.9; O2SAT 90–96
[2024-08-14] MEDS: CEFEPIME 1 GM/NS 50 ML 1 GM/50 ML BAG IVPB ×2 (03:40→16:02)
[2024-08-14] MEDS: CARBIDOPA/LEVODOPA 25/100 MG TABLET 2 TABLET BY MOUTH (05:56)
[2024-08-14] MEDS: LEVOTHYROXINE SODIUM 112 MCG TABLET PO (05:57)
[2024-08-14] MEDS: LEVALBUTEROL NEB 1.25 MG/3 ML INHALATION ×3 (07:22→21:00)
[2024-08-14] MEDS: ACETAMINOPHEN 325 MG TABLET 650 MG PO ×2 (08:46→21:15)
[2024-08-14] MEDS: FUROSEMIDE INJ 40 MG/4 ML VIAL IV PUSH (08:47)
[2024-08-14] MEDS: METOPROLOL TARTRATE 50 MG TAB 100 MG PO ×2 (08:47→21:14)
[2024-08-14] MEDS: DOXYCYCLINE 100 MG/NS 100 ML 100 MG/100 ML BAG IVPB ×2 (08:47→21:15)
[2024-08-14] MEDS: guaiFENesin 12 HR 600 MG TABCR 1200 MG PO ×2 (08:47→21:14)
[2024-08-14] MEDS: ROSUVASTATIN 5 MG TABLET BY MOUTH (08:47)
[2024-08-14] MEDS: dilTIAZem HCL CD 120 MG CAP.24HR PO (08:47)
--- NOTE | 2024-08-14 10:55 | PM.IMPN ---
Progress Note: A&P Assessment and Plan (1) Influenza A: Code(s): J10.1 - Influenza due to other identified influenza virus with other respiratory manifestations Status: Acute (2) CHF exacerbation: Code(s): I50.9 - Heart failure, unspecified Status: Acute (3) Acute respiratory distress: Code(s): R06.03 - Acute respiratory distress Status: Inactive (4) Atrial fibrillation: Qualifiers: Atrial fibrillation type: unspecified Qualified Code(s): I48.91 - Unspecified atrial fibrillation Code(s): I48.91 - Unspecified atrial fibrillation Status: Acute (5) Hyperlipidemia: Qualifiers: Hyperlipidemia type: mixed hyperlipidemia Qualified Code(s): E78.2 - Mixed hyperlipidemia Code(s): E78.5 - Hyperlipidemia, unspecified Status: Acute (6) Essential hypertension: Code(s): I10 - Essential (primary) hypertension Status: Acute (7) Parkinson's 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, without mention of fluctuations: Qualifiers: Fluctuating manifestations: without fluctuating manifestations Qualified Code(s): G20.A1 - Parkinson's 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, without mention of fluctuations Code(s): G20.A1 - Parkinson's 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, without mention of fluctuations Status: Acute Plan This is an 83-year-old female presents to the ED with increased generalized weakness fatigue and went to urgent care where she was found to be hypoxic. She also reported cough.On the ED evaluation she was hypoxic 84% on room air was placed on 4 L oxygen via nasal cannula mildly tachycardic. AFib on EKG.Laboratory data showed normal WBC 7.8 hemoglobin of 15.4 platelet 186 Chem panel was unremarkable. BNP was elevated at 3840. Influenza RSV COVID swab tested positive for influenza A. Chest x-ray showed mild pulmonary vascular congestion with small bilateral pleural effusion and adjacent compressive atelectasis. Patient on chronic anticoagulation with apixaban. Acute respiratory failure with hypoxemia Possible due to influenza infection and superimposed acute heart failure, pneumonia and pleural effusion Patient admitted started on Tamiflu for influenza a. Finished course of Tamiflu Acute hypoxic respiratory failure oxygen as tolerated. Because of atrial fibrillation will change DuoNeb to Xopenex and ipratropium. Droplet isolation to continue. Pulmonary on board Decompensates again 08/11/2024 requiring bipap. Influenza a infection Finished Tamiflu all Large left pleural effusion and adjacent consultation Suggesting possible pneumonia Unclear etiology of pleural effusion overnight hypoxia still prsent requiring 8l oxygen. need thoracentesis. 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 No prior diagnosis of congestive heart failure the she has been worked up for dyspnea on exertion in the past. Cardiology consulted. IV Lasix b.i.d. repeat chest x-ray with improved congestion. echo 2021 with EF 70% trace TR RVSP 37 mild LVH. Repeat echo 08/03/24 with 65-70%. Mild aortic valve stenosis mobile density attached to the posterior annulus of the mitral valve most likely calcified nodule. Echo with bubble study negative. Atrial fibrillation with rapid ventricular rate cardiology on board changed to Xopenex continue home metoprolol and Eliquis Hold blood thinner for thoracentesis Right knee pain Swelling, no erythematous change X-ray shows mild to moderate right knee fluid Uric acid 6.1 Consult orthopedic Hypertension Hyperlipidemia Parkinson's disease Sleep apnea uses oxygen at night. overnight oxygen at 8 Restrictive lung disease with kyphosis plans to get a portable oxygen concentrator in the past per pulmonary note and family. Will need home oxygen evaluation at the time of discharge to evaluate this. Hypothyroidism possible also related to her restrictive lung disease with evidence of kyphosis on her CT scan but no evidence of interstitial lung disease. DVT prophylaxis on Eliquis Code status do not resuscitate Disposition home with home health planned Subjective Date/time seen: 08/14/24 10:55 Interval history: I saw exam patient today. Patient underwent thoracentesis, patient denies chest pain, dyspnea improves significantly,. patient is on oxygen pulse ox 95-98, patient patient compliance right knee pain. Denies trauma, Exam Narrative: GENERAL: Frail looking, in no acute distress. Well-nourished. - EYES: EOMI. Anicteric. - HENT: Moist mucous membranes. - LUNGS: Coarse breath sound bilateral base no respiratory distress, diminished breath sounds left lower chest - CARDIOVASCULAR: Regular rate and rhythm. No murmur. No JVD. - ABDOMEN: Soft, non-tender and non-distended. No palpable masses. - EXTREMITIES: No edema. Peripheral pulses 2+. Non-tender. Right knee tender - NEUROLOGIC: No focal neurological deficits. CN II-XII grossly intact.General weakness - PSYCHIATRIC: Awake, Alert and oriented x 3. Appropriate mood and affect. - SKIN: No rashes or lesions. Warm. - LYMPH: No cervical lymphadenopathy. Objective Data Vital Signs Vital Signs: Vital Signs - 24 hr 08/13/24 12:00 08/13/24 14:00 08/13/24 14:15 Temperature 97.0 F L Pulse Rate 76 97 Respiratory Rate 17 Blood Pressure 106/55 L Pulse Oximetry 97 98 Oxygen Delivery High Flow Nasal Cannula Oxygen Flow Rate 6 08/13/24 14:45 08/13/24 15:04 08/13/24 16:00 Temperature Pulse Rate 111 H 76 77 Respiratory Rate 20 28 H Blood Pressure Pulse Oximetry Oxygen Delivery Oxygen Flow Rate 08/13/24 20:00 08/13/24 20:00 08/13/24 21:06 Temperature Pulse Rate 76 Respiratory Rate Blood Pressure Pulse Oximetry 93 94 Oxygen Delivery High Flow Nasal Cannula High Flow Nasal Cannula Oxygen Flow Rate 6 6 08/13/24 21:06 08/13/24 21:20 08/13/24 21:42 Temperature 99.2 F Pulse Rate 88 86 102 H Respiratory Rate 20 20 14 Blood Pressure 113/52 L Pulse Oximetry 93 Oxygen Delivery Oxygen Flow Rate 08/14/24 00:00 08/14/24 04:00 08/14/24 05:40 Temperature 97.6 F Pulse Rate 63 80 95 Respiratory Rate 22 H Blood Pressure 126/72 Pulse Oximetry 90 Oxygen Delivery Oxygen Flow Rate 08/14/24 07:22 08/14/24 07:34 08/14/24 08:00 Temperature Pulse Rate 94 105 H 107 H Respiratory Rate 20 20 Blood Pressure Pulse Oximetry Oxygen Delivery Oxygen Flow Rate 08/14/24 08:47 08/14/24 08:58 Temperature Pulse Rate 100 Respiratory Rate Blood Pressure Pulse Oximetry 96 Oxygen Delivery High Flow Nasal Cannula Oxygen Flow Rate 6 Intake/Output Intake/Output: Intake & Output 08/11/24 08/12/24 08/13/24 08/14/24 23:59 23:59 23:59 23:59 Intake Total 1080 1170 2300 695 Output Total 4185 679 5712 Balance 80 520 1100 695 Meds/Results Medications: Active Medications Generic Name Dose Route Start Last Admin Trade Name Freq PRN Reason Stop Dose Admin Acetaminophen 650 mg 07/30/24 16:59 08/14/24 08:46 Acetaminophen 325 Mg Tablet PO 650 mg Q4H PRN Administration Mild Pain (1-3) or Fever Apixaban 5 mg 07/31/24 21:00 08/12/24 10:59 Apixaban 5 Mg Tablet PO 5 mg Q12HR PERFECTO Administration Carbidopa/Levodopa 2 tablet 07/31/24 06:00 08/14/24 05:56 Carbidopa/Levodopa 25/100 Mg Tablet BY MOUTH 2 tablet 0600,1200 PERFECTO Administration Carbidopa/Levodopa 1 tablet 07/30/24 22:55 08/13/24 21:38 Carbidopa/Levodopa 25/100 Mg Tablet BY MOUTH 1 tablet HS PERFECTO Administration Diltiazem HCl 120 mg 08/03/24 12:00 08/14/24 08:47 Diltiazem Hcl Cd 120 Mg Cap.24hr PO 120 mg QAM PERFECTO Administration Furosemide 40 mg 08/09/24 13:05 08/14/24 08:47 Furosemide Inj 40 Mg/4 Ml Vial IV PUSH 40 mg DAILY PERFECTO Administration Guaifenesin 1,200 mg 08/05/24 21:00 08/14/24 08:47 Guaifenesin 12 Hr 600 Mg Tabcr PO 1,200 mg Q12HR PERFECTO Administration Cefepime HCl 1 gm in 50 mls @ 100 mls/hr 08/12/24 16:00 08/14/24 04:10 Maxipime 1 Gm/Ns 50 Ml IVPB Infused Q12H PERFECTO Infusion Doxycycline Hyclate 100 mg in 100 mls @ 100 mls/hr 08/12/24 12:30 08/14/24 09:47 Vibramycin 100 Mg/Ns 100 Ml IVPB Infused Q12HR PERFECTO Infusion Ipratropium [place] 0.5 mg 08/10/24 14:00 08/14/24 07:22 Ipratropium Br 0.02% Inh Soln 0.5 Mg/2.5 Ml Vial INHALATION 0.5 mg TIDRT PERFECTO Administration Levalbuterol HCl 1.25 mg 08/10/24 14:00 08/14/24 07:22 Levalbuterol Neb 1.25 Mg/3 Ml INHALATION 1.25 mg TIDRT PERFECTO Administration Levothyroxine Sodium 112 mcg 07/31/24 06:30 08/14/24 05:57 Levothyroxine Sodium 112 Mcg Tablet PO 112 mcg DAILY@0630 PERFECTO Administration Metoprolol Tartrate 100 mg 07/30/24 22:50 08/14/24 08:47 Metoprolol Tartrate 50 Mg Tab PO 100 mg Q12HR PERFECTO Administration Ondansetron HCl 4 mg 07/30/24 16:59 Ondansetron Inj 4 Mg/2 Ml Vial IV PUSH Q4H PRN Nausea Polyethylene Glycol 17 gm 08/01/24 14:14 08/01/24 14:26 Polyethylene Glycol 3350 17 Gm Powd.Pack PO 17 gm QAM PRN Administration Constipation Rosuvastatin Calcium 5 mg 07/31/24 09:00 08/14/24 08:47 Rosuvastatin 5 Mg Tablet BY MOUTH 5 mg DAILY PERFECTO Administration Radiology Results: ITS Impressions Chest X-Ray 08/12/24 06:35 IMPRESSION: Increased atelectasis/prominent consolidation of the left mid and lower lung zones and left pleural effusion Mild infiltrate or atelectasis in the right lower lung field and small right pleural effusion Chest CT 08/12/24 21:07 IMPRESSION: Large left and small right-sided pleural effusions with adjacent consolidation.
[2024-08-14 11:42] LABS: Mean Platelet Volume 10.5 fl (7.4-10.4); Platelet Count Result 188 k/mm3 (150-375)
[2024-08-14 11:54] LABS: INR 1.2; Prothrombin Time 15.8 Seconds (11.1-14.7)
[2024-08-14 11:55] LABS: Partial Thromboplastin Time 27.6 Seconds (22.3-36.8)
[2024-08-14 16:14] LABS: Uric Acid 6.1 mg/dL (2.5-7.5)
[2024-08-14] MEDS: IPRATROPIUM BR 0.02% INH SOLN 0.5 MG/2.5 ML VIAL INHALATION ×2 (16:50→21:01)
--- NOTE | 2024-08-14 17:59 | PM.PNPUL ---
Progress Note: A&P Assessment and Plan (1) Influenza A: Code(s): J10.1 - Influenza due to other identified influenza virus with other respiratory manifestations Status: Acute Assessment and Plan: 08/04/23: overall the patient tells me she has a little bit better. She is afebrile. White blood cell count 9.3. Creatinine 1.0. Patient is afebrile. CRP is 0.5. Procalcitonin 0.1. Currently she is on 7 L nasal cannula oxygen with saturations 95%. Chest x-ray today shows an enlarged left lower lobe consolidation consistent with effusion and/or atelectasis. Later in the day CT scan of the chest showed a small left pleural effusion with left lower lobe consolidation with air bronchograms. Plan: Agree with treatment for influenza a pneumonia. Currently she is on day 4 of Tamiflu. She is now off systemic steroids. She was empirically started on vancomycin and ceftriaxone on 08/03/2024 and would continue for now. Goal saturation 90-94%. The patient tells me she improves with levalbuterol and ipratropium nebulizers q.6 hours and will continue. Continue guaifenesin 600 mg p.o. q.12 hours. Continue incentive spirometry and Cornet flutter valve. 08/05/24: Overall the patient states she has a little bit better. She has a moist cough but is unable to bring up any phlegm. Currently she is on 7 L nasal cannula saturations 90%. She is afebrile, creatinine is 1.0. Plan: continue Tamiflu, day 6. Recommend treating for 10 days. MRSA swab negative, vancomycin discontinued. Continue ceftriaxone, day 3. Continue levalbuterol and ipratropium nebulizers q.6 and guaifenesin will increase to 1200 mg twice a day. Later in the day patient had worsening oxygenation requiring 13 L nasal cannula. ABG on 13 L 7.44/50/59. 08/06/2024: Patient continues to tell me she does a little bit better each day. She has a dry cough, no phlegm, no hemoptysis. Patient was in the middle of a physical therapy session and had just walked from the her bed to the door and back on 10 L nasal cannula her saturations were 98%. White blood cell count 11.7, creatinine 0.8. BNP 3090 improved from 4430. Plan: Continue Tamiflu, day 7, renally adjusted. Continue ceftriaxone day 4, continue levalbuterol and ipratropium nebulizers q.6 and guaifenesin 1200 twice a day. 08/07/2024: The patient tells me she continues to improve each day. Currently she is on 8 L nasal cannula saturations 96%. She is afebrile. White blood cell count 11.3, creatinine 0.62. she performed Cornet flutter valve with me. She performed incentive spirometry at 600 mL. Plan: Continue Tamiflu, day 8. Continue ceftriaxone, day 5. Continue levalbuterol and ipratropium nebulizers. Continue guaifenesin 1200 twice a day. Goal saturation 90-94%, wean as tolerated. I discussed this with the bedside nurse. 08/08/2024: Patient had episode of desaturation early in the morning. She required 15 L face mask. I ordered a chest x-ray this morning which shows consolidation in the left lower lobe with no change from 08/04/2024. Today she tells me that she continues to slowly improve. Her cough and phlegm persist but are better. Her white blood cell count is 11.1, creatinine is 0.59. Cumulative she is positive 2.7 L since admission. Bubble study was negative. BNP 3690. Plan: Continue Tamiflu, day 9. Continue ceftriaxone, day 6. Continue levalbuterol and ipratropium nebulizers and change to while awake. Continue guaifenesin 1200 twice a day. Goal saturation 90-94%, wean as tolerated. I discussed this with the bedside nurse. I will give Lasix 20 mg IV x1 today. 08/09/24: Patient has been stable since yesterday morning. She states she is a little better. She is debilitated but she is doing some walking. She has a dry cough. She is afebrile. Currently she is on 6 L nasal cannula saturations 92%. Patient had an overnight oximetry on 6 L with recording duration 5 hours and 21 minutes. Average saturation 92%. Low saturation 87%. Time with saturation less than or equal to 88% was 6 minutes. Oxygen desaturation index 2.3. She will finish day 10 of Tamiflu and day 7 of ceftriaxone today. Plan: Last day of Tamiflu, day 10. Last day of ceftriaxone day 7. Continue levalbuterol and ipratropium nebulizers. Continue incentive spirometry, I will give 40 of Lasix today. 08/10/24: Patient says she improves a little bit each day. She says the cough is better. She did have nose bleeding this morning. When I enter the room she was on 7 L with saturations 97%. I decreased her to 4 L for 6 minutes and her saturations remain 96% I decreased her to 3 L and her saturations remained 95 % for 5 minutes. I placed her on room air and after 3 minutes she desaturated to 89%. I placed her back on 2 L and her saturations were 94%. Patient given 40 of Lasix yesterday and she was positive 1.6 L, cumulative she is positive 5.1 L. Her weight is 74.9 today. Plan: Patient is slowly improving. She walked in the halls yesterday. Oxygen improved this morning and down to 2 L. overnight oximetry was worse on 7 L than 6 L. she said she had no problems with a nasal cannula coming off last night. continue incentive spirometry, Cornet flutter valve, guaifenesin 1200 p.o. b.i.d. From a pulmonary perspective patient when the patient is ready to be discharged she should be on these pulmonary medications: Anoro Ellipta 62.5-25 at 1 puff q.day Rescue albuterol 2 puffs q.4 hours p.r.n. shortness of breath or wheezing Guaifenesin 1200 mg p.o. b.i.d. p.r.n. Oxygen at rest and with ambulation per formal home O2 assessment on the day of discharge Oxygen at night as guided by overnight oximetry on 8 L which will be performed tonight. 08/14/24: Slowly improving, lower )2 need, thoracentesis results pending. She feels less short of breath after removal of 300 ml александр fluid left pleural space. (2) Hypoxia: Code(s): R09.02 - Hypoxemia Status: Acute Assessment and Plan: At baseline she had dyspnea on exertion and required 2 L oxygen at night and none with rest or with activity. 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 plan: Patient currently on 7 L nasal cannula. Suspect her current hypoxemia is related to influenza pneumonia with a small left pleural effusion and consolidation in the left lower lobe. Continue treatment as above. 08/05/2024: Currently she is on 7 L nasal cannula saturations 90%. Plan: Treatment for influenza pneumonia as above. Will continue Cornet flutter valve. Will add EzPAP. Out of bed to chair as tolerated. 08/06/24: Patient was on 13 L nasal cannula yesterday and today has been decreased to 10 L nasal cannula. Plan: Continue Tamiflu as above. Continue Cornet flutter valve, incentive spirometry which she is doing 600 mL, and EzPAP. Will order echo with bubble study. 08/07/23: Oxygenation slowly improving. She is back to 8 L and right now with a saturation of 96% will try to wean to maintain saturations 90 %. Echo with bubble study pending. Continue Cornet flutter valve, incentive spirometry q.2 hours while awake. The daughter is at the bedside and will try to reinforce this. Continue out of bed and physical therapy as tolerated. 08/08/23: When I enter the room she was on 10 L nasal cannula saturations 99%. I decreased her to 6 L nasal cannula and after 6 minutes her saturations were 97%. I decreased her to 5 L and after 12 minutes her saturation was 97%. Plan: Goal saturation 90-94%. Wean accordingly. I will order overnight oximetry on 6 L tonight. 08/09/24: Patient had an overnight oximetry on 6 L with recording duration 5 hours and 21 minutes. Average saturation 92%. Low saturation 87%. Time with saturation less than or equal to 88% was 6 minutes. Oxygen desaturation index 2.3. Plan: I will repeat overnight oximetry on 7 L. 08/10/24: Patient had an overnight oximetry on 7 L with recording duration of 6 hours and 6 minutes. Average saturation 90%. Low saturation 79%. Time with saturation less than or equal to 88% was 75 minutes. Oxygen desaturation index 1.0. Plan: I will repeat an overnight oximetry on 8 L tonight. 08/14/24: she had thoracentesis on L side today, 300 ml александр fluid removed, results are pending. She is on 6 L/min, sat is 96%. 08/14/24 CXR : IMPRESSION: Left basilar atelectasis versus pneumonia with minimal effusion. Subjective Date/time seen: 08/14/24 17:59 Interval history: 08/03/24, new consult; Jing Garcias is 83 years old, admitted with influenza and acute hypoxic respiratory failure. Last office visit w Dr Ramesh was 06/06/23; restrictive impairment with need for O2 2 L w exertion. She did not require a follow up appointment. She never gets a flu vaccination. She was admitted with increased shortness of breath, PCR (+) for influenza A and acute hypercapnic respiratory failure. She feels better now compared to admission. She was started on Tamiflu 75 mg p.o. q.12 hours and IV Solu-Medrol which was discontinued today. She had rapid atrial fibrillation, was treated with diltiazem. She initially required 15 liters/minute, the amount fluctuated on the initial admission date July 31, was down to 7 or 8 L a minute, now stable at 8 L for the last 2 - 3 days. 08/04/23: overall the patient tells me she has a little bit better. She is afebrile. White blood cell count 9.3. Creatinine 1.0. Patient is afebrile. CRP is 0.5. Procalcitonin 0.1. Currently she is on 7 L nasal cannula oxygen with saturations 95%. Chest x-ray today shows an enlarged left lower lobe consolidation consistent with effusion and/or atelectasis. 08/05/24: Overall the patient states she has a little bit better. She has a moist cough but is unable to bring up any phlegm. Currently she is on 7 L nasal cannula saturations 90%. She is afebrile, creatinine is 1.0. later in the day patient had worsening oxygenation requiring 13 L nasal cannula. ABG on 13 L 7.44/50/59. 08/06/2024: Patient continues to tell me she does a little bit better each day. She has a dry cough, no phlegm, no hemoptysis. Patient was in the middle of a physical therapy session and had just walked from the her bed to the door and back on 10 L nasal cannula her saturations were 98%. White blood cell count 11.7, creatinine 0.8. BNP 3090 improved from 4430. Bubble study was negative. 08/07/2024: The patient tells me she continues to improve each day. Currently she is on 8 L nasal cannula saturations 96%. She is afebrile. White blood cell count 11.3, creatinine 0.62. she performed Cornet flutter valve with me. She performed incentive spirometry at 600 mL. 08/08/2024: Patient had episode of desaturation early in the morning. She required 15 L face mask. I ordered a chest x-ray this morning which shows consolidation in the left lower lobe with no change from 08/04/2024. Today she tells me that she continues to slowly improve. Her cough and phlegm persist but are better. Her white blood cell count is 11.1, creatinine is 0.59. When I enter the room she was on 10 L nasal cannula saturations 99%. I decreased her to 6 L nasal cannula and after 6 minutes her saturations were 97%. I decreased her to 5 L and after 12 minutes her saturation was 97%. Cumulative she is positive 2.7 L since admission. Bubble study was negative. BNP 3690. 08/09/24: Patient has been stable since yesterday morning. She states she is a little better. She is debilitated but she is doing some walking. She has a dry cough. She is afebrile. Currently she is on 6 L nasal cannula saturations 92%. Patient had an overnight oximetry on 6 L with recording duration 5 hours and 21 minutes. Average saturation 92%. Low saturation 87%. Time with saturation less than or equal to 88% was 6 minutes. Oxygen desaturation index 2.3. She will finish day 10 of Tamiflu and day 7 of ceftriaxone today. 08/10/24: Patient says she improves a little bit each day. She says the cough is better. She did have nose bleeding this morning. When I enter the room she was on 7 L with saturations 97%. I decreased her to 4 L for 6 minutes and her saturations remain 96% I decreased her to 3 L and her saturations remained 95 % for 5 minutes. I placed her on room air and after 3 minutes she desaturated to 89%. I placed her back on 2 L and her saturations were 94%. Patient had an overnight oximetry on 7 L with recording duration of 6 hours and 6 minutes. Average saturation 90%. Low saturation 79%. Time with saturation less than or equal to 88% was 75 minutes. Oxygen desaturation index 1.0. Patient given 40 of Lasix yesterday and she was positive 1.6 L, cumulative she is positive 5.1 L. Her weight is 74.9 today. 08/14/24; She is sitting on side of the bed, finishing eating dinner. She had left thoracentesis today, says that she feels better after having fluid removed. No data is back from the thoracentesis yet. DATA: 08/06/24: Summary 1. This was a bubble study only. 2. Intact interatrial septum visualized by agitated saline imaging. Negative bubble study. 08/04/24: EXAMINATION: CT diagnostic chest wo con INDICATION: Left lower lobe pneumonia versus effusion COMPARISON: 08/04/2024 portable AP chest FINDINGS: Small left pleural effusion. There is linear atelectasis or scarring of the lingula. There is more prominent left basilar lower lobe atelectasis, minimal dependent right lower lobe atelectasis. Cardiomegaly. There is extensive thoracic aortic calcification including ascending aorta, aortic arch, descending thoracic aorta. No thoracic aortic aneurysm. No hilar or mediastinal mass lesion or adenopathy. No pericardial effusion. Status post cholecystectomy. IMPRESSION: Small left pleural effusion and bilateral areas of atelectasis, most prominent at the base of the left lower lobe Cardiomegaly * MRSA swab negative, influenza A positive, all other PCR are negative, influenza B, RSV, SARS-CoV-2. * 08/03/2024 sodium 137, potassium 4.3, chloride 93, HC03 greater than 40, BUN 60, initially was 31, increased over the next 3 days there was 60, creatinine 0.7 * 07/31/24; ABG; pH 7.42, pCO2 53.3, pO2 73.4, HC03 34.1, saturation 94.8 on high-flow 8 L * 08/02/24 : Impression: Small left pleural effusion with left basilar and left perihilar airspace disease. Correlate for atelectasis/edema versus pneumonia. * 07/30/24 : Central congestive change with probable minimal bibasilar pulmonary edema/atelectatic change. 03/02/2023: This is a pulmonary function test with pre and post-bronchodilator spirometry, plethysmography and diffusing capacity.? The test was performed and results interpreted in accordance with the 2019 and 2005 ATS/ERS Task Force guidelines respectively using the Global Lung Function Initiative-2012 reference equations. Patient demonstrated good effort and cooperation. Reproducibility criteria were met. The quality of the pre bronchodilator spirometry maneuver was Grade A and post bronchodilator spirometry maneuver was Grade A.? I spoke with the copier field service technician and the patient required coaching to complete the spirometry and the remainder of the test the patient did well and there were no technical issues measuring the lung volumes. Findings: Spirometry:? The contour the inspiratory and expiratory flow tracing are normal.? The pre bronchodilator FVC is 1.46 L, 56% predicted.? The pre bronchodilator FEV1 is 1.03 L, 52% predicted.? The pre bronchodilator FEV1: FVC ratio 70%.? The post bronchodilator FVC is 1.31 L, representing an 11% decrease.? The post bronchodilator FEV1 is 1.00 L, representing a 3% decrease.? The post bronchodilator FEV1: FVC ratio 76%.? Plethysmography:? The total lung capacity 7.08 L, 136% predicted.? The functional residual capacity is 5.89 L, 196% predicted.? The residual volume is 5.61 L, 228% predicted.? Diffusing capacity:? The diffusing capacity unadjusted for hemoglobin and carboxyhemoglobin is 12.5, 63% predicted.? The diffusing capacity adjusted for alveolar volume is 5.71, 140% predicted.? In comparison to previous pulmonary function testing on 03/23/2021 the post bronchodilator FVC is unchanged from 1.51 L to 1.31 L.? The post bronchodilator FEV1 is decreased from 1.18 L to 1.00 L.? The total lung capacity has increased from 3.44 L to 7.08 L.? The functional residual capacity is increased from 2.16 L to 5.89 L.? The residual volume has increased from 1.90 L to 5.61 L.? The diffusing capacity unadjusted for hemoglobin and carboxyhemoglobin is unchanged from 12.3 to 12.5.? The diffusing capacity adjusted for alveolar volume is unchanged from 5.26 to 5.71. Impression: The spirometry is normal without evidence of an obstructive abnormality. The lung volumes are increased without evidence of a restrictive abnormality. ? The FVC and FEV1 are moderately severely decreased without an obstructive or restrictive abnormality.? This is an abnormal but nonspecific finding.? There is no significant improvement after inhaling a single dose of albuterol.? The total lung capacity, functional residual capacity and residual volume are increased with an increased residual volume: TLC ratio.? This is consistent with hyperinflation. The diffusing capacity unadjusted for hemoglobin and carboxyhemoglobin is mildly decreased and increased when adjusted for alveolar volume.? In comparison to previous pulmonary function testing on 03/23/2021 there has been a greater than anticipated time dependent increase in the total lung capacity, residual volume and functional residual capacity with a greater than anticipated time dependent decrease in the FEV1 with no significant change in the FVC or diffusing capacity.? Clinical correlation is recommended. 03/02/23: The patient has no obstructive abnormality and no restrictive abnormality with hyperinflation that has increased since 03/23/2021. This is a 6 minute walk test using walking aid. Resting room air oxygen saturation measured by pulse oximetry was 94% and heart rate was 64 bpm.? Patient ambulated for 122 meters and oxygen saturation remained 90 to 93%.? Heart rate at the end of the study was 88 bpm. The patient did not qualify for supplemental oxygen at rest or with ambulation. 02/16/2023: Overnight oximetry on 2 L nasal cannula. Recording duration was 1 hour and 34 minutes basal saturation 93.4%. High saturation 98%. Low saturation 89%. Time with saturation less than or equal to 88% was 0 minutes. Oxygen desaturation index is 10. Continue 2 L nasal cannula at night. 02/02/2023:? This is a follow-up encounter from 10/28/2021 for MAHER and nocturnal hypoxemia. On 10/28/2021:? Patient with MAHER and nocturnal hypoxemia. She is a nonsmoker with no occupational exposures. Patient has no rest SOB and she also requires no oxygen at rest but 2 L with ambulation per home O2 assessment on 03/23/2021. She has a moderately severe restrictive abnormality with a total lung capacity of 67% predicted. She has a CT scan of the chest that demonstrates severe thoracic spondylosis and some kyphosis with no emphysematous or interstitial lung disease. I believed her MAHER and hypoxemia is related to her restrictive lung disease with evidence of kyphosis on her CT scan but no evidence of interstitial lung disease. I suspect there also is a component of deconditioning for her MAHER. Patient has minimal respiratory limitations in her activities of daily living at this time and is currently walking 3/4 to 1 mile 5 days a week and this takes her 45 minutes without oxygen. She has pleased with this progress. Portable oxygen concentrator process was initiated. At this time there is no specific pulmonary follow-up needed. Please refer the patient to us should she have any new issues. 08/11/2022:? Cardiology outpatient visit states some SOB but able to walk outside 1/4 mi or so with only stopping once.? Thinks she might need to see pulmonary again.? Wears O2 at night and naps. 12/15/2022:? Cardiology, Dr. Vazquez, she is still SOB with stairs, ADLs like running vacuum about the same from last visit.? O2 saturation 92% room air at rest.? Complaints of SOB stable.? She does not appear to be in decompensated heart failure.? At rest 93% on room air after 1 lap = 95%.? Two laps = 90%, 3 laps = 90%.? Patient does not qualify for supplemental oxygen with ambulation although she is mildly hypoxic.? I have strongly encouraged her to contact her wood type finisher again to be seen as soon as possible for further recommendations and management in this regard. This appears to be the explanation of her symptoms in the absence of decompensated heart failure.? Her echo is not suggestive of significant valvular heart disease.? Her AFib is persistent with a reasonably controlled ventricular response.? Patient verbalized understanding. DATA: EXAMINATION:CT diagnostic chest wo con DATE: 04/03/2021 12:41 INDICATION: Other disorders of lung. COMPARISON: Chest CT 03/20/2019, 06/18/2016 FINDINGS: There is mild emphysema. There is mild bronchiectasis in right middle lobe and lingula. A calcified right lung nodule and calcified right hilar and mediastinal lymph nodes are consistent with old granulomatous disease. There is mild atelectasis in the inferior lungs. There is an 8 mm nodule in right lower lobe without change, likely benign. No pleural effusion. The heart size is normal. There are coronary artery calcifications. No pericardial effusion. Calcifications in the spleen are consistent with old granulomatous disease. There are changes of cholecystectomy. 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 There is lucency around the glenoid component with subsidence, consistent with loosening. There is severe thoracic spondylosis. There are changes of vertebroplasty at L1. IMPRESSION: 1. Mild emphysema. 2. 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 03/23/21 PFTs ? This is a pulmonary function test with pre and post-bronchodilator spirometry, plethysmography and diffusing capacity. The test was performed and results interpreted in accordance with the 2019 and 2005 ATS/ERS Task Force guidelines respectively using the Global Lung Function Initiative-2012 reference equations. Patient demonstrated good effort and cooperation. Reproducibility criteria were met. The quality of the pre bronchodilator spirometry maneuver was Grade A and post bronchodilator spirometry maneuver was Grade A. Findings: Spirometry:? The contour of the expiratory flow tracing is that of a witch's hat.? The contour the inspiratory flow tracing is normal.? The pre bronchodilator FVC is 1.54 L, 54% predicted.? The pre bronchodilator FEV1 is 1.13 L, 57% predicted.? The FEV1: FVC ratio 73%.? The post bronchodilator FVC is 1.51 L, representing a 2% decrease.? The post bronchodilator FEV1 is 1.18 L, representing a 5% decrease. Plethysmography:? The total lung capacity is 3.44 L, 67% predicted.? The functional residual capacity is 2.16 L, 76% predicted.? The residual volume is 1.90 L, 87% predicted. Diffusing capacity:? The absolute diffusion capacity is 12.3, 60% predicted.? The diffusing capacity corrected for alveolar volume is 5.26, 157% predicted. Impression: There is a moderately severe restrictive ventilatory abnormality. The spirometry is normal without evidence of an obstructive abnormality. There is no significant improvement after inhaling a single dose of albuterol. The ? Absolute diffusion capacity is normal and increased when corrected for alveolar volume. There are no prior studies for comparison. 03/03/2021: Patient had an overnight oximetry on room air that demonstrated a basal saturation of 90.3%.? High saturation 98.0%.? Low saturation 76.0%.? Time with saturation less than or equal to 88% was 63.7 minutes.? I will prescribe 2 L nasal cannula oxygen at night and repeat an overnight oximetry on 2 L nasal cannula. Review of Systems Review of Systems: All systems reviewed & are unremarkable except as noted in HPI and below Exam Narrative: Alert, oriented, not in distress. She is wearing O2 by nasal cannula 6 L /min, 96%, can be weaned. HEENT: pupils are equal, EOMI, symmetrical face; oral membranes moist NECK: Trachea is midline CHEST: Equal air entry, symmetric excursion, decreased breath sounds, band-aid left lower thorax from thoracentesis. CV: irregular S1S2 no m/g/r ABD : (+) bowel sounds Extremities : no clubbing, cyanosis, or edema PSYCH: normal thought and speech, gait is not tested Objective Data Vital Signs Vital Signs: Vital Signs - 24 hr 08/13/24 20:00 08/13/24 20:00 08/13/24 21:06 Temperature Pulse Rate 76 Respiratory Rate Blood Pressure Pulse Oximetry 93 94 Oxygen Delivery High Flow Nasal Cannula High Flow Nasal Cannula Oxygen Flow Rate 6 6 08/13/24 21:06 08/13/24 21:20 08/13/24 21:42 Temperature 37.3 C Pulse Rate 88 86 102 H Respiratory Rate 20 20 14 Blood Pressure 113/52 L Pulse Oximetry 93 Oxygen Delivery Oxygen Flow Rate 08/14/24 00:00 08/14/24 04:00 08/14/24 05:40 Temperature 36.4 C Pulse Rate 63 80 95 Respiratory Rate 22 H Blood Pressure 126/72 Pulse Oximetry 90 Oxygen Delivery Oxygen Flow Rate 08/14/24 07:22 08/14/24 07:34 08/14/24 08:00 Temperature Pulse Rate 94 105 H 107 H Respiratory Rate 20 20 Blood Pressure Pulse Oximetry Oxygen Delivery Oxygen Flow Rate 08/14/24 08:47 08/14/24 08:58 08/14/24 12:00 Temperature Pulse Rate 100 85 Respiratory Rate Blood Pressure Pulse Oximetry 96 Oxygen Delivery High Flow Nasal Cannula Oxygen Flow Rate 6 08/14/24 14:00 08/14/24 16:00 08/14/24 16:50 Temperature 36.4 C Pulse Rate 98 88 Respiratory Rate 19 Blood Pressure 149/85 H Pulse Oximetry 90 92 Oxygen Delivery High Flow Nasal Cannula Oxygen Flow Rate 8 08/14/24 16:50 08/14/24 17:07 Temperature Pulse Rate 84 98 Respiratory Rate 20 20 Blood Pressure Pulse Oximetry Oxygen Delivery Oxygen Flow Rate Intake/Output Intake/Output: Intake & Output 08/11/24 08/12/24 08/13/24 08/14/24 23:59 23:59 23:59 23:59 Intake Total 1080 1170 2300 845 Output Total 0767 138 1744 900 Balance 80 520 1100 -55 Meds/Results Medications: Active Medications Generic Name Dose Route Start Last Admin Trade Name Freq PRN Reason Stop Dose Admin Acetaminophen 650 mg 07/30/24 16:59 08/14/24 08:46 Acetaminophen 325 Mg Tablet PO 650 mg Q4H PRN Administration Mild Pain (1-3) or Fever Apixaban 5 mg 07/31/24 21:00 08/12/24 10:59 Apixaban 5 Mg Tablet PO 5 mg Q12HR PERFECTO Administration Carbidopa/Levodopa 2 tablet 07/31/24 06:00 08/14/24 12:05 Carbidopa/Levodopa 25/100 Mg Tablet BY MOUTH Not Given 0600,1200 PERFECTO Carbidopa/Levodopa 1 tablet 07/30/24 22:55 08/13/24 21:38 Carbidopa/Levodopa 25/100 Mg Tablet BY MOUTH 1 tablet HS PERFECTO Administration Diltiazem HCl 120 mg 08/03/24 12:00 08/14/24 08:47 Diltiazem Hcl Cd 120 Mg Cap.24hr PO 120 mg QAM PERFECTO Administration Furosemide 40 mg 08/09/24 13:05 08/14/24 08:47 Furosemide Inj 40 Mg/4 Ml Vial IV PUSH 40 mg DAILY PERFECTO Administration Guaifenesin 1,200 mg 08/05/24 21:00 08/14/24 08:47 Guaifenesin 12 Hr 600 Mg Tabcr PO 1,200 mg Q12HR PERFECTO Administration Cefepime HCl 1 gm in 50 mls @ 100 mls/hr 08/12/24 16:00 08/14/24 16:32 Maxipime 1 Gm/Ns 50 Ml IVPB Infused Q12H PERFECTO Infusion Doxycycline Hyclate 100 mg in 100 mls @ 100 mls/hr 08/12/24 12:30 08/14/24 09:47 Vibramycin 100 Mg/Ns 100 Ml IVPB Infused Q12HR PERFECTO Infusion Ipratropium [place] 0.5 mg 08/10/24 14:00 08/14/24 16:50 Ipratropium Br 0.02% Inh Soln 0.5 Mg/2.5 Ml Vial INHALATION 0.5 mg TIDRT PERFECTO Administration Ketorolac Tromethamine 15 mg 08/14/24 15:15 Ketorolac 15 Mg/Ml Vial (*[facility]) IV PUSH Q6H PRN Pain Rated 4-6 Levalbuterol HCl 1.25 mg 08/10/24 14:00 08/14/24 16:50 Levalbuterol Neb 1.25 Mg/3 Ml INHALATION 1.25 mg TIDRT PERFECTO Administration Levothyroxine Sodium 112 mcg 07/31/24 06:30 08/14/24 05:57 Levothyroxine Sodium 112 Mcg Tablet PO 112 mcg DAILY@0630 PERFECTO Administration Metoprolol Tartrate 100 mg 07/30/24 22:50 08/14/24 08:47 Metoprolol Tartrate 50 Mg Tab PO 100 mg Q12HR PERFECTO Administration Ondansetron HCl 4 mg 07/30/24 16:59 Ondansetron Inj 4 Mg/2 Ml Vial IV PUSH Q4H PRN Nausea Polyethylene Glycol 17 gm 08/01/24 14:14 08/01/24 14:26 Polyethylene Glycol 3350 17 Gm Powd.Pack PO 17 gm QAM PRN Administration Constipation Rosuvastatin Calcium 5 mg 07/31/24 09:00 08/14/24 08:47 Rosuvastatin 5 Mg Tablet BY MOUTH 5 mg DAILY PERFECTO Administration Radiology Results: ITS Impressions Chest CT 08/12/24 21:07 IMPRESSION: Large left and small right-sided pleural effusions with adjacent consolidation. Chest X-Ray 08/14/24 14:09 IMPRESSION: Left basilar atelectasis versus pneumonia with minimal effusion. Thoracentesis Ultrasound 08/14/24 14:16 IMPRESSION: 1. Successful ultrasound-guided thoracentesis yielding 300 mL of александр-colored fluid. Knee X-Ray 08/14/24 15:55 IMPRESSION: 1. 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 2. Small to moderate-sized right knee joint effusion and/or synovitis. 3. No evident acute osseous abnormality. Labs Labs: Laboratory Results - last 24 hr 08/14/24 11:32 Plt Count 188 MPV 10.5 H PT 15.8 H INR 1.2 APTT 27.6 Uric Acid 6.1
[2024-08-14] MEDS: CARBIDOPA/LEVODOPA 25/100 MG TABLET 1 TABLET BY MOUTH (21:15)
[2024-08-15] VITALS (17 sets, daily range): BP systolic 112–129; BP diastolic 62–71; PULSE 76–115; RESP 17–20; TEMP 35.6–37.1; O2SAT 93–99
[2024-08-15] MEDS: CEFEPIME 1 GM/NS 50 ML 1 GM/50 ML BAG IVPB ×2 (03:22→15:22)
[2024-08-15] MEDS: CARBIDOPA/LEVODOPA 25/100 MG TABLET 2 TABLET BY MOUTH ×2 (05:31→12:19)
[2024-08-15] MEDS: LEVOTHYROXINE SODIUM 112 MCG TABLET PO (05:32)
[2024-08-15] MEDS: LEVALBUTEROL NEB 1.25 MG/3 ML INHALATION ×3 (07:40→19:41)
[2024-08-15] MEDS: IPRATROPIUM BR 0.02% INH SOLN 0.5 MG/2.5 ML VIAL INHALATION ×3 (07:40→19:34)
[2024-08-15] MEDS: METOPROLOL TARTRATE 50 MG TAB 100 MG PO ×2 (08:56→21:54)
[2024-08-15] MEDS: dilTIAZem HCL CD 120 MG CAP.24HR PO (08:57)
[2024-08-15] MEDS: ACETAMINOPHEN 325 MG TABLET 650 MG PO ×2 (08:57→21:55)
[2024-08-15] MEDS: ROSUVASTATIN 5 MG TABLET BY MOUTH (08:57)
[2024-08-15] MEDS: guaiFENesin 12 HR 600 MG TABCR 1200 MG PO ×2 (08:57→21:54)
[2024-08-15] MEDS: FUROSEMIDE INJ 40 MG/4 ML VIAL IV PUSH (08:58)
[2024-08-15] MEDS: DOXYCYCLINE 100 MG/NS 100 ML 100 MG/100 ML BAG IVPB ×2 (08:58→21:56)
--- NOTE | 2024-08-15 10:43 | P.CONOP_ITS ---
Assessment and Plan Assessment and plan (1) Effusion, right knee: Code(s): M25.461 - Effusion, right knee <POORNIMA Bland - Last Filed: 08/15/24 17:39> Status: Acute <POORNIMA Bland - Last Filed: 08/15/24 17:39> Assessment and Plan: Large knee effusion starting acutely 2 days ago. No injury. Patient has been inpatient for a few weeks due to influenza and pneumonia. Previously walking without issues in the knee. Warmth and erythema at the joint. Likely gout or pseudogout. Uric acid 6.1. Knee xray shows severe patellofemoral arthritis. Moderate medial and lateral changes. I suspect more narrowing with weight bearing films. Will aspirate and inject depomedrol today. 25 cc inflammatory fluid drained from the knee. Cultures, cell count, and crystals sent. Fluid did not look purulent however it was cloudy. Will follow. Thank you for the consultation and allowing me to participate in the patient's care. <POORNIMA Bland - Last Filed: 08/15/24 17:39> (2) Arthritis of right knee: Code(s): M17.11 - Unilateral primary osteoarthritis, right knee <POORNIMA Bland - Last Filed: 08/15/24 17:39> Status: Acute <POORNIMA Bland - Last Filed: 08/15/24 17:39> Assessment and Plan: Large knee effusion starting acutely 2 days ago. No injury. Patient has been inpatient for a few weeks due to influenza and pneumonia. Previously walking without issues in the knee. Warmth and erythema at the joint. Likely gout or pseudogout. Uric acid 6.1. Knee xray shows severe patellofemoral arthritis. Moderate medial and lateral changes. I suspect more narrowing with weight bearing films. Will aspirate and inject depomedrol today. 25 cc inflammatory fluid drained from the knee. Cultures, cell count, and crystals sent. Fluid did not look purulent however it was cloudy. Will follow. Thank you for the consultation and allowing me to participate in the patient's care. <POORNIMA Bland - Last Filed: 08/15/24 17:39> Acute right knee pain and effusion. Elevated uric acid. Admitted with upper respiratory infection. Likely due to gout. Aspiration performed with inflammatory fluid. No gross purulence. 80 mg of Depo-Medrol injected. Fluid sent for cell count and cultures. Thank you for the consultation. <Ry Weinberg MD - Last Filed: 08/15/24 17:31> History of Present Illness HPI Consult date: 08/15/24 <POORNIMA Bland - Last Filed: 08/15/24 17:39> 08/15/24 <Ry Weinberg MD - Last Filed: 08/15/24 17:31> Chief complaint: influenza A, hypoxia <POORNIMA Bland - Last Filed: 08/15/24 17:39> Narrative: Patient has been inpatient for influenza and pneumonia. Recent thoracentesis. Tuesday patient was walking the halls without issues. She has had some knee pain in the past. Tuesdays morning she woke up and the knee was red, swollen, and very painful. XR was ordered and we were consulted. <POORNIMA Bland - Last Filed: 08/15/24 17:39> Review of Systems 2 Review of Systems: All systems reviewed & are unremarkable except as noted in HPI and below <POORNIMA Bland - Last Filed: 08/15/24 17:39> [facility] Past Medical History Medical History: Medical History Atherosclerosis of aorta Other thrombophilia Neoplasm of uncertain behavior of skin Anticoagulation adequate with anticoagulant therapy Plantar callus PND (post-nasal drip) Restrictive lung disease Compression fracture of L1 lumbar vertebra Systolic murmur Shortness of breath on exertion Essential hypertension Hyperlipidemia Hypothyroidism (acquired) Post-menopausal <POORNIMA Bland - Last Filed: 08/15/24 17:39> Surgical History Surgical History: Surgical History History of left shoulder replacement (~09/17/21) History of kyphoplasty (~01/2021) History of back surgery History of cholecystectomy History of left knee replacement History of surgery Fractured Arm (Steel Plate & 7 Screws) History of right shoulder replacement History of hysterectomy (~1984) <POORNIMA Bland - Last Filed: 08/15/24 17:39> Family History Family History: Family History Father Hypertension, Onset Age: 70 Cerebrovascular accident, Onset Age: 70 Mother Hypertension, Onset Age: 81 Cerebrovascular accident Sibling Asthma Family history of arthritis Family history of hearing loss Grandparent Family history of malignant neoplasm of breast in first degree relative <POORNIMA Bland - Last Filed: 08/15/24 17:39> Social History Social History: Social History Smoking status: Never smoker Second hand tobacco smoke exposure: No Alcohol intake: never Alcohol use details: STATES VERY RARELY - HOLIDAYS Substance use: never Substance use type: does not use Do You Feel Safe in your Home?: Yes Lack of Transportation: No Lack of Food: Never True Current Housing: I Have Housing Concerned About Future Housing: No Difficulty Paying Gas/Electric Bills: No Difficulty Paying for Meds: No Currently Unemployed: No Education: Decline to Answer Difficulty w/ Childcare or Family Care: No Living arrangements: with family Gender identity (if verbalized by the patient): Female Spiritual care concerns: No <POORNIMA Bland - Last Filed: 08/15/24 17:39> Meds Home Medications and Allergies Home medications: Home Medications ?Medication ?Instructions ?Recorded ?Confirmed ?Type cholecalciferol (vitamin D3) 25 25 mcg PO QAM 02/09/21 07/30/24 History mcg (1,000 unit) capsule mecobalamin (vitamin B12) 1,000 1,000 mcg PO QAM 02/09/21 07/30/24 History mcg chewable tablet apixaban 2.5 mg tablet (Eliquis) 2.5 mg PO BID 05/18/23 07/30/24 History rosuvastatin 5 mg tablet See Rx Instructions .Route 04/03/24 07/30/24 Rx .COMPLEX #90 tabs carbidopa 25 mg-levodopa 100 mg See Rx Instructions .Route 07/16/24 07/30/24 Rx tablet .COMPLEX #450 tabs levothyroxine 112 mcg tablet 112 mcg PO DAILY #90 tabs 07/17/24 07/30/24 Rx (Levo-T) metoprolol tartrate 100 mg tablet 100 mg PO BID #180 tabs 07/19/24 07/30/24 Rx amlodipine 5 mg tablet 5 mg PO .daily 07/30/24 07/30/24 History <POORNIMA Bland - Last Filed: 08/15/24 17:39> Allergies/Adverse reactions: Allergies Allergy/AdvReac Type Severity Reaction Status Date / Time No Known Allergies Allergy Verified 07/30/24 14:27 <POORNIMA Bland - Last Filed: 08/15/24 17:39> Vital Signs Vital Signs - 24 hr 08/14/24 12:00 08/14/24 14:00 08/14/24 16:00 Temperature 97.6 F Pulse Rate 85 98 88 Respiratory Rate 19 Blood Pressure 149/85 H Pulse Oximetry 90 Oxygen Delivery Oxygen Flow Rate 08/14/24 16:50 08/14/24 16:50 08/14/24 17:07 Temperature Pulse Rate 84 98 Respiratory Rate 20 20 Blood Pressure Pulse Oximetry 92 Oxygen Delivery High Flow Nasal Cannula Oxygen Flow Rate 8 08/14/24 20:00 08/14/24 20:00 08/14/24 21:01 Temperature Pulse Rate 100 101 H Respiratory Rate 20 Blood Pressure Pulse Oximetry 90 Oxygen Delivery High Flow Nasal Cannula Oxygen Flow Rate 6 08/14/24 21:06 08/14/24 21:16 08/14/24 22:00 Temperature 98.5 F Pulse Rate 101 H 99 100 Respiratory Rate 20 18 Blood Pressure 145/85 H Pulse Oximetry 90 92 Oxygen Delivery High Flow Nasal Cannula Oxygen Flow Rate 6 08/15/24 00:00 08/15/24 04:00 08/15/24 06:00 Temperature 98.8 F Pulse Rate 81 86 89 Respiratory Rate 20 Blood Pressure 126/71 Pulse Oximetry 93 Oxygen Delivery Oxygen Flow Rate 08/15/24 07:40 08/15/24 07:40 08/15/24 07:50 Temperature Pulse Rate 115 H 115 H 102 H Respiratory Rate 20 20 20 Blood Pressure Pulse Oximetry 94 Oxygen Delivery High Flow Nasal Cannula Oxygen Flow Rate 6 08/15/24 08:55 08/15/24 08:56 Temperature Pulse Rate 88 Respiratory Rate Blood Pressure Pulse Oximetry 96 Oxygen Delivery High Flow Nasal Cannula Oxygen Flow Rate 6 <POORNIMA Bland - Last Filed: 08/15/24 17:39> Exam 2 Narrative: Alert and oriented x3. Overweight 83 y/o female. Laying comfortably in bed. Pain and obviously uncomfortable with any motion of the knee. No distal edema. No ecchymosis. Large joint effusion. Warmth and erythema. Diffuse tenderness. Range of motion limited due to pain. Unable to assess ligaments due to pain. No varicosities. Distal pulses palpable. Normal light touch sensation. No skin lesions. <POORNIMA Bland - Last Filed: 08/15/24 17:39> Results Labs Result Diagrams: 08/15/24 16:18 08/15/24 16:18 <POORNIMA Bland - Last Filed: 08/15/24 17:39> Labs: Abnormal lab results 08/14/24 Range/Units 11:32 MPV 10.5 H (7.4-10.4) fl PT 15.8 H (11.1-14.7) Seconds H & H 07/30/24 08/01/24 08/02/24 Range/Units 14:32 07:23 06:30 Hgb 15.4 H 17.5 H 17.4 H (12.0-15.0) g/dL Hct 47.0 54.5 H 55.7 H (37.0-47.0) % 08/04/24 08/06/24 08/07/24 Range/Units 07:26 06:17 07:09 Hgb 17.1 H 17.2 H 16.7 H (12.0-15.0) g/dL Hct 54.2 H 54.6 H 52.7 H (37.0-47.0) % 08/08/24 08/11/24 08/12/24 Range/Units 06:02 06:16 03:41 Hgb 15.8 H 15.5 H 14.8 (12.0-15.0) g/dL Hct 49.8 H 49.5 H 47.0 (37.0-47.0) % 08/13/24 Range/Units 06:15 Hgb 14.6 (12.0-15.0) g/dL Hct 46.4 (37.0-47.0) % Coagulation 08/14/24 Range/Units 11:32 INR 1.2 All other labs normal. <POORNIMA Bland - Last Filed: 08/15/24 17:39>
--- NOTE | 2024-08-15 14:26 | PM.IMPN ---
Progress Note: A&P Assessment and Plan (1) Influenza A: Code(s): J10.1 - Influenza due to other identified influenza virus with other respiratory manifestations Status: Acute (2) CHF exacerbation: Code(s): I50.9 - Heart failure, unspecified Status: Acute (3) Acute respiratory distress: Code(s): R06.03 - Acute respiratory distress Status: Inactive (4) Atrial fibrillation: Qualifiers: Atrial fibrillation type: unspecified Qualified Code(s): I48.91 - Unspecified atrial fibrillation Code(s): I48.91 - Unspecified atrial fibrillation Status: Acute (5) Hyperlipidemia: Qualifiers: Hyperlipidemia type: mixed hyperlipidemia Qualified Code(s): E78.2 - Mixed hyperlipidemia Code(s): E78.5 - Hyperlipidemia, unspecified Status: Acute (6) Essential hypertension: Code(s): I10 - Essential (primary) hypertension Status: Acute (7) Parkinson's 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, without mention of fluctuations: Qualifiers: Fluctuating manifestations: without fluctuating manifestations Qualified Code(s): G20.A1 - Parkinson's 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, without mention of fluctuations Code(s): G20.A1 - Parkinson's 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, without mention of fluctuations Status: Acute Plan This is an 83-year-old female presents to the ED with increased generalized weakness fatigue and went to urgent care where she was found to be hypoxic. She also reported cough.On the ED evaluation she was hypoxic 84% on room air was placed on 4 L oxygen via nasal cannula mildly tachycardic. AFib on EKG.Laboratory data showed normal WBC 7.8 hemoglobin of 15.4 platelet 186 Chem panel was unremarkable. BNP was elevated at 3840. Influenza RSV COVID swab tested positive for influenza A. Chest x-ray showed mild pulmonary vascular congestion with small bilateral pleural effusion and adjacent compressive atelectasis. Patient on chronic anticoagulation with apixaban. Acute respiratory failure with hypoxemia Possible due to influenza infection and superimposed acute heart failure, pneumonia and pleural effusion Patient admitted started on Tamiflu for influenza a. Finished course of Tamiflu Acute hypoxic respiratory failure oxygen as tolerated. Because of atrial fibrillation DuoNeb to Xopenex and ipratropium. Droplet isolation to continue. Appreciate pulmonary consultation Off BiPAP Influenza a infection Finished Tamiflu all Large left pleural effusion and adjacent consultation Suggesting possible pneumonia Unclear etiology of pleural effusion overnight hypoxia still prsent requiring 8l oxygen. need thoracentesis. 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 No prior diagnosis of congestive heart failure the she has been worked up for dyspnea on exertion in the past. Cardiology consulted. IV Lasix b.i.d. repeat chest x-ray with improved congestion. echo 2021 with EF 70% trace TR RVSP 37 mild LVH. Repeat echo 08/03/24 with 65-70%. Mild aortic valve stenosis mobile density attached to the posterior annulus of the mitral valve most likely calcified nodule. Echo with bubble study negative. Atrial fibrillation with rapid ventricular rate cardiology on board changed to Xopenex continue home metoprolol and Eliquis Hold blood thinner for thoracentesis Right knee pain Swelling, no erythematous change X-ray shows mild to moderate right knee fluid Uric acid 6.1 Consult orthopedic Hypertension Hyperlipidemia Parkinson's disease Sleep apnea uses oxygen at night. overnight oxygen at 8 Restrictive lung disease with kyphosis plans to get a portable oxygen concentrator in the past per pulmonary note and family. Will need home oxygen evaluation at the time of discharge to evaluate this. Hypothyroidism possible also related to her restrictive lung disease with evidence of kyphosis on her CT scan but no evidence of interstitial lung disease. DVT prophylaxis on Eliquis Code status do not resuscitate Disposition home with home health planned Subjective Date/time seen: 08/15/24 14:26 Interval history: I saw exam patient today. Patient feels better today, on BiPAP today, dyspnea continue to improve, cytology and fluid culture of left pleural effusion still pending. patient is on oxygen pulse ox 95-98, patient patient compliance right knee pain. Denies trauma, Exam Narrative: GENERAL: Frail looking, in no acute distress. Well-nourished. - EYES: EOMI. Anicteric. - HENT: Moist mucous membranes. - LUNGS: Coarse breath sound bilateral base no respiratory distress, diminished breath sounds left lower chest - CARDIOVASCULAR: Regular rate and rhythm. No murmur. No JVD. - ABDOMEN: Soft, non-tender and non-distended. No palpable masses. - EXTREMITIES: No edema. Peripheral pulses 2+. Non-tender. Right knee tender - NEUROLOGIC: No focal neurological deficits. CN II-XII grossly intact.General weakness - PSYCHIATRIC: Awake, Alert and oriented x 3. Appropriate mood and affect. - SKIN: No rashes or lesions. Warm. - LYMPH: No cervical lymphadenopathy. Objective Data Vital Signs Vital Signs: Vital Signs - 24 hr 08/14/24 16:00 08/14/24 16:50 08/14/24 16:50 Temperature Pulse Rate 88 84 Respiratory Rate 20 Blood Pressure Pulse Oximetry 92 Oxygen Delivery High Flow Nasal Cannula Oxygen Flow Rate 8 08/14/24 17:07 08/14/24 20:00 08/14/24 20:00 Temperature Pulse Rate 98 100 Respiratory Rate 20 Blood Pressure Pulse Oximetry 90 Oxygen Delivery High Flow Nasal Cannula Oxygen Flow Rate 6 08/14/24 21:01 08/14/24 21:06 08/14/24 21:16 Temperature Pulse Rate 101 H 101 H 99 Respiratory Rate 20 20 Blood Pressure Pulse Oximetry 90 Oxygen Delivery High Flow Nasal Cannula Oxygen Flow Rate 6 08/14/24 22:00 08/15/24 00:00 08/15/24 04:00 Temperature 98.5 F Pulse Rate 100 81 86 Respiratory Rate 18 Blood Pressure 145/85 H Pulse Oximetry 92 Oxygen Delivery Oxygen Flow Rate 08/15/24 06:00 08/15/24 07:40 08/15/24 07:40 Temperature 98.8 F Pulse Rate 89 115 H 115 H Respiratory Rate 20 20 20 Blood Pressure 126/71 Pulse Oximetry 93 94 Oxygen Delivery High Flow Nasal Cannula Oxygen Flow Rate 6 08/15/24 07:50 08/15/24 08:55 08/15/24 08:56 Temperature Pulse Rate 102 H 88 Respiratory Rate 20 Blood Pressure Pulse Oximetry 96 Oxygen Delivery High Flow Nasal Cannula Oxygen Flow Rate 6 08/15/24 12:00 08/15/24 13:04 08/15/24 13:35 Temperature Pulse Rate 76 90 Respiratory Rate 17 Blood Pressure Pulse Oximetry Oxygen Delivery Nasal Cannula Oxygen Flow Rate 6 08/15/24 13:45 Temperature Pulse Rate 97 Respiratory Rate 18 Blood Pressure Pulse Oximetry Oxygen Delivery Oxygen Flow Rate Intake/Output Intake/Output: Intake & Output 08/12/24 08/13/24 08/14/24 08/15/24 23:59 23:59 23:59 23:59 Intake Total 1170 2300 995 1030 Output Total 650 1200 900 100 Balance 520 1100 95 930 Meds/Results Medications: Active Medications Generic Name Dose Route Start Last Admin Trade Name Freq PRN Reason Stop Dose Admin Acetaminophen 650 mg 07/30/24 16:59 08/15/24 08:57 Acetaminophen 325 Mg Tablet PO 650 mg Q4H PRN Administration Mild Pain (1-3) or Fever Apixaban 5 mg 07/31/24 21:00 08/12/24 10:59 Apixaban 5 Mg Tablet PO 5 mg Q12HR PERFECTO Administration Carbidopa/Levodopa 2 tablet 07/31/24 06:00 08/15/24 12:19 Carbidopa/Levodopa 25/100 Mg Tablet BY MOUTH 2 tablet 0600,1200 PERFECTO Administration Carbidopa/Levodopa 1 tablet 07/30/24 22:55 08/14/24 21:15 Carbidopa/Levodopa 25/100 Mg Tablet BY MOUTH 1 tablet HS PERFECTO Administration Diltiazem HCl 120 mg 08/03/24 12:00 08/15/24 08:57 Diltiazem Hcl Cd 120 Mg Cap.24hr PO 120 mg QAM PERFECTO Administration Furosemide 40 mg 08/09/24 13:05 08/15/24 08:58 Furosemide Inj 40 Mg/4 Ml Vial IV PUSH 40 mg DAILY PERFECTO Administration Guaifenesin 1,200 mg 08/05/24 21:00 08/15/24 08:57 Guaifenesin 12 Hr 600 Mg Tabcr PO 1,200 mg Q12HR PERFECTO Administration Cefepime HCl 1 gm in 50 mls @ 100 mls/hr 08/12/24 16:00 08/15/24 03:52 Maxipime 1 Gm/Ns 50 Ml IVPB Infused Q12H PERFECTO Infusion Doxycycline Hyclate 100 mg in 100 mls @ 100 mls/hr 08/12/24 12:30 08/15/24 09:58 Vibramycin 100 Mg/Ns 100 Ml IVPB Infused Q12HR PERFECTO Infusion Ipratropium [place] 0.5 mg 08/10/24 14:00 08/15/24 13:35 Ipratropium Br 0.02% Inh Soln 0.5 Mg/2.5 Ml Vial INHALATION 0.5 mg TIDRT PERFECTO Administration Ketorolac Tromethamine 15 mg 08/14/24 15:15 Ketorolac 15 Mg/Ml Vial (*[facility]) IV PUSH Q6H PRN Pain Rated 4-6 Levalbuterol HCl 1.25 mg 08/10/24 14:00 08/15/24 13:35 Levalbuterol Neb 1.25 Mg/3 Ml INHALATION 1.25 mg TIDRT PERFECTO Administration Levothyroxine Sodium 112 mcg 07/31/24 06:30 08/15/24 05:32 Levothyroxine Sodium 112 Mcg Tablet PO 112 mcg DAILY@0630 PERFECTO Administration Metoprolol Tartrate 100 mg 07/30/24 22:50 08/15/24 08:56 Metoprolol Tartrate 50 Mg Tab PO 100 mg Q12HR PERFECTO Administration Ondansetron HCl 4 mg 07/30/24 16:59 Ondansetron Inj 4 Mg/2 Ml Vial IV PUSH Q4H PRN Nausea Polyethylene Glycol 17 gm 08/01/24 14:14 08/01/24 14:26 Polyethylene Glycol 3350 17 Gm Powd.Pack PO 17 gm QAM PRN Administration Constipation Rosuvastatin Calcium 5 mg 07/31/24 09:00 08/15/24 08:57 Rosuvastatin 5 Mg Tablet BY MOUTH 5 mg DAILY PERFECTO Administration Radiology Results: ITS Impressions Chest CT 08/12/24 21:07 IMPRESSION: Large left and small right-sided pleural effusions with adjacent consolidation. Chest X-Ray 08/14/24 14:09 IMPRESSION: Left basilar atelectasis versus pneumonia with minimal effusion. Thoracentesis Ultrasound 08/14/24 14:16 IMPRESSION: 1. Successful ultrasound-guided thoracentesis yielding 300 mL of александр-colored fluid. Knee X-Ray 08/14/24 15:55 IMPRESSION: 1. 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 2. Small to moderate-sized right knee joint effusion and/or synovitis. 3. No evident acute osseous abnormality. Labs Labs: Laboratory Results - last 24 hr 08/14/24 11:32 Uric Acid 6.1
--- NOTE | 2024-08-15 14:27 | PCOTNOTE ---
Patient declined this afternoon. Patient verbalized she is goiung to have fluid drained off, shoulder feel better tomorrow and requested therapy come back tomorrow.
[2024-08-15 16:39] LABS: Basophils Percent Auto 0.2 % (0.2-1.2); Hematocrit 43.6 % (37.0-47.0); Hemoglobin 13.7 g/dL (12.0-15.0); Immature Granulocyte Absolute 0.12 K/mm3 (0.00-0.031); Immature Granulocyte Percent A 0.8 % (0-0.5); Lymphocytes Absolute Auto 1.06 K/mm3 (0.9-3.2); Lymphocytes Percent Auto 7.3 % (18.3-44.2); Mean Corpuscular HGB Conc 31.4 g/dl (32-36); Mean Corpuscular Hemoglobin 28.8 pg (26-34); Mean Corpuscular Volume 91.6 fl (80-100); Mean Platelet Volume 10.7 fl (7.4-10.4); Monocytes Absolute Auto 1.6 K/mm3 (0.1-0.6); Monocytes Percent Auto 11.1 % (2.6-8.5); Neutrophils Absolute Auto 11.7 K/mm3 (1.3-6.7); Neutrophils Percent Auto 80.6 % (45.5-73.1); Platelet Count Result 159 k/mm3 (150-375); Red Blood Count 4.76 M/mm3 (4.2-5.4); Red Cell Distribution Width 14.5 % (11.5-14.5); White Blood Count 14.5 K/mm3 (4.5-10.0)
[2024-08-15 16:49] LABS: Anion Gap 2 mmol/L (4-12); Blood Urea Nitrogen 24 mg/dL (7-17); Calcium 8.7 mg/dL (8.4-10.2); Carbon Dioxide 36 mmol/L (22-30); Chloride 97 mmol/L (98-107); Estimated CRCL calculation 60 ml/min; Estimated Glomerular Filt Rate > 60; Glucose 102 mg/dL (65-110); Potassium 3.8 mmol/L (3.4-5.0); Sodium 135 mmol/L (137-145)
--- NOTE | 2024-08-15 17:22 | PM.OP ---
Procedure Note - Brief Procedure Note - Brief Date of procedure: 08/15/24 knee effusion Post-op diagnosis: Same Procedure performed: aspiration and injection right knee joint Surgeon: POORNIMA Bland Findings: Joint Aspiration/Injection Right knee: Pre-procedure care: Consent was obtained, Procedures/risks were explained, Questions were answered, Correct patient identified and Correct side and site confirmed Position: Laying Site Prepped: chlorhexidine and povidone-iodine Injection Details right arthrocentesis major joint Knee joint Manual palpation Fluid: Serous, cloudy. Fluid Withdrawn (mL): 25 Injection: Depo-Medrol 80 Sterile Dressing: [place] and Adhesive Post Procedure: Patient tolerated the procedure well Condition: Stable
--- NOTE | 2024-08-15 17:40 | W.PM.PROC2 ---
Procedure Note - Detailed Date of Procedure 08/15/24 Pre-op Diagnosis Right knee effusion. Post-op Diagnosis Same Procedure Performed Right knee aspiration and injection. Surgeon POORNIMA Bland Anesthesia None Indications Knee effusion. Findings 25 cc inflammatory fluid. Cloudy. No gross purulence. Description of Procedure Joint Aspiration/Injection Right knee: Pre-procedure care: Consent was obtained, Procedures/risks were explained, Questions were answered, Correct patient identified and Correct side and site confirmed Position: Laying Site Prepped: chlorhexidine and povidone-iodine Injection Details right arthrocentesis major joint Knee joint Manual palpation Fluid: Serous, cloudy. Fluid Withdrawn (mL): 25 Injection: Depo-Medrol 80 Sterile Dressing: [place] and Adhesive Post Procedure: Patient tolerated the procedure well Condition: Stable Estimated Blood Loss 0 Tourniquet Time Total Tourniquet Time: none Drains No Packing No Pathology None sent Complications No immediate complications Condition Stable Disposition No change
[2024-08-15] MEDS: methylPREDNISolone ACETATE 80 MG/ML VIAL IM (17:47)
[2024-08-15 19:11] LABS: Appearance Synovial Fluid Cloudy (Clear); Color Synovial Fluid Yellow (Colorless); Source Synovial Fluid Rt Knee Syn Fluid
[2024-08-15 19:13] LABS: Nucleated Cell Synovial Fluid 20085 /uL (0-200); RBC Synovial Fluid 5000 /uL (0-0)
[2024-08-15 19:14] LABS: Lymphocytes Synovial Fluid 2 %; Monocytes Synovial Fluid 15 %; Neutrophils Synovial Fluid 83 % (0-25)
[2024-08-15 19:16] LABS: Crystals Synovial Fluid None Seen (None Seen)
[2024-08-15] MEDS: CARBIDOPA/LEVODOPA 25/100 MG TABLET 1 TABLET BY MOUTH (21:55)
[2024-08-15] MEDS: WATER FOR IRRIGATION, STERILE 1,000 ML BOTTLE 1000 ML (22:10)
[2024-08-16] VITALS (14 sets, daily range): BP systolic 113–127; BP diastolic 56–60; PULSE 70–104; RESP 16–20; TEMP 36.3–36.8; O2SAT 92–98
[2024-08-16] MEDS: CEFEPIME 1 GM/NS 50 ML 1 GM/50 ML BAG IVPB ×2 (04:25→17:00)
[2024-08-16] MEDS: CARBIDOPA/LEVODOPA 25/100 MG TABLET 2 TABLET BY MOUTH ×2 (05:01→13:09)
[2024-08-16] MEDS: LEVOTHYROXINE SODIUM 112 MCG TABLET PO (05:01)
[2024-08-16] MEDS: METOPROLOL TARTRATE 50 MG TAB 100 MG PO ×2 (08:50→21:53)
[2024-08-16] MEDS: ROSUVASTATIN 5 MG TABLET BY MOUTH (08:50)
[2024-08-16] MEDS: guaiFENesin 12 HR 600 MG TABCR 1200 MG PO ×2 (08:50→21:53)
[2024-08-16] MEDS: dilTIAZem HCL CD 120 MG CAP.24HR PO (08:50)
[2024-08-16] MEDS: DOXYCYCLINE 100 MG/NS 100 ML 100 MG/100 ML BAG IVPB ×2 (08:52→21:54)
[2024-08-16] MEDS: FUROSEMIDE INJ 40 MG/4 ML VIAL IV PUSH (08:52)
[2024-08-16] MEDS: IPRATROPIUM BR 0.02% INH SOLN 0.5 MG/2.5 ML VIAL INHALATION ×2 (09:18→21:40)
[2024-08-16] MEDS: LEVALBUTEROL NEB 1.25 MG/3 ML INHALATION ×2 (09:18→21:40)
--- NOTE | 2024-08-16 10:06 | P.PNIM_ITS ---
Progress Note: A&P Assessment and Plan (1) Influenza A: Code(s): J10.1 - Influenza due to other identified influenza virus with other respiratory manifestations Status: Acute (2) CHF exacerbation: Code(s): I50.9 - Heart failure, unspecified Status: Acute (3) Acute respiratory distress: Code(s): R06.03 - Acute respiratory distress Status: Inactive (4) Atrial fibrillation: Qualifiers: Atrial fibrillation type: unspecified Qualified Code(s): I48.91 - Unspecified atrial fibrillation Code(s): I48.91 - Unspecified atrial fibrillation Status: Acute (5) Hyperlipidemia: Qualifiers: Hyperlipidemia type: mixed hyperlipidemia Qualified Code(s): E78.2 - Mixed hyperlipidemia Code(s): E78.5 - Hyperlipidemia, unspecified Status: Acute (6) Essential hypertension: Code(s): I10 - Essential (primary) hypertension Status: Acute (7) Parkinson's 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, without mention of fluctuations: Qualifiers: Fluctuating manifestations: without fluctuating manifestations Qualified Code(s): G20.A1 - Parkinson's 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, without mention of fluctuations Code(s): G20.A1 - Parkinson's 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, without mention of fluctuations Status: Acute Plan This is an 83-year-old female presents to the ED with increased generalized weakness fatigue and went to urgent care where she was found to be hypoxic. She also reported cough.On the ED evaluation she was hypoxic 84% on room air was placed on 4 L oxygen via nasal cannula mildly tachycardic. AFib on EKG.Laboratory data showed normal WBC 7.8 hemoglobin of 15.4 platelet 186 Chem panel was unremarkable. BNP was elevated at 3840. Influenza RSV COVID swab tested positive for influenza A. Chest x-ray showed mild pulmonary vascular congestion with small bilateral pleural effusion and adjacent compressive atelectasis. Patient on chronic anticoagulation with apixaban. Acute respiratory failure with hypoxemia Possible due to influenza infection and superimposed acute heart failure, pneumonia and pleural effusion Patient admitted started on Tamiflu for influenza a. Finished course of Tamiflu Acute hypoxic respiratory failure oxygen as tolerated. Because of atrial fibrillation DuoNeb to Xopenex and ipratropium. Droplet isolation to continue. Appreciate pulmonary consultation Off BiPAP Patient is on 6 L oxygen via nasal cannular Influenza a infection Finished Tamiflu all Large left pleural effusion and adjacent consultation Suggesting possible pneumonia Unclear etiology of pleural effusion overnight hypoxia still prsent requiring 8l oxygen. need thoracentesis. hold eliquis is on hold Order left chest thoracentesis, 300 mL fluid was removed, cytology: The cytologic findings are consistent with the patient's history of influenza A and heart failure per pathologist report. Gram stain and culture of pleural effusion pending Consulted telephone maintainer, follow-up recommendation acute congestive heart failure. No prior diagnosis of congestive heart failure the she has been worked up for dyspnea on exertion in the past. Cardiology consulted. IV Lasix b.i.d. repeat chest x-ray with improved congestion. echo 2021 with EF 70% trace TR RVSP 37 mild LVH. Repeat echo 08/03/24 with 65- 70%. Mild aortic valve stenosis mobile density attached to the posterior annulus of the mitral valve most likely calcified nodule. Echo with bubble study negative. Atrial fibrillation with rapid ventricular rate cardiology on board changed to Xopenex continue home metoprolol and Eliquis Hold blood thinner for thoracentesis Right knee pain Swelling, no erythematous change X-ray shows mild to moderate right knee fluid Uric acid 6.1 Consult orthopedic Right knee aspiration was performed, cultures pending Hypertension Hyperlipidemia Parkinson's disease Sleep apnea uses oxygen at night. overnight oxygen at 8 Restrictive lung disease with kyphosis plans to get a portable oxygen concentrator in the past per pulmonary note and family. Will need home oxygen evaluation at the time of discharge to evaluate this. Hypothyroidism possible also related to her restrictive lung disease with evidence of kyphosis on her CT scan but no evidence of interstitial lung disease. DVT prophylaxis on Eliquis Code status do not resuscitate Disposition home with home health planned Subjective Date/time seen: 08/16/24 10:06 Interval history: I saw exam patient today. Patient still has general weakness, patient ambulated with assistance of physical therapist. Patient was able to walk in her room. Dyspnea continue to improve, knee pain is improving. Patient is on 6 L oxygen today, Exam Narrative: GENERAL: Frail looking, in no acute distress. Well-nourished. - EYES: EOMI. Anicteric. - HENT: Moist mucous membranes. - LUNGS: Coarse breath sound bilateral base no respiratory distress, diminished breath sounds left lower chest - CARDIOVASCULAR: Regular rate and rhyth m. No murmur. No JVD. - ABDOMEN: Soft, non-tender and non-dist ended. No palpable masses. - EXTREMITIES: No edema. Peripheral puls es 2+. Non-tender. Right knee tender - NEUROLOGIC: No focal neurological defi cits. CN II-XII grossly intact.General weakness - PSYCHIATRIC: Awake, Alert and oriented x 3. Appropriate mood and affect. - SKIN: No rashes or lesions. Warm. - LYMPH: No cervical lymphadenopathy. Objective Data Vital Signs Vital Signs: Vital Signs - 24 hr 08/15/24 12:00 08/15/24 13:04 08/15/24 13:35 Temperature Pulse Rate 76 90 Respiratory Rate 17 Blood Pressure Pulse Oximetry Oxygen Delivery Nasal Cannula Oxygen Flow Rate 6 08/15/24 13:45 08/15/24 14:00 08/15/24 16:00 Temperature 96.1 F L Pulse Rate 97 90 90 Respiratory Rate 18 18 Blood Pressure 129/62 Pulse Oximetry 99 Oxygen Delivery Oxygen Flow Rate 08/15/24 19:30 08/15/24 19:41 08/15/24 19:57 Temperature Pulse Rate 94 90 Respiratory Rate 18 18 Blood Pressure Pulse Oximetry 94 Oxygen Delivery High Flow Nasal Cannula Oxygen Flow Rate 6 08/15/24 20:00 08/15/24 20:00 08/15/24 22:00 Temperature 97.9 F Pulse Rate 92 101 H Respiratory Rate 20 Blood Pressure 112/64 Pulse Oximetry 99 94 Oxygen Delivery Nasal Cannula Oxygen Flow Rate 6 08/16/24 00:00 08/16/24 04:00 08/16/24 06:00 Temperature 97.7 F Pulse Rate 70 70 80 Respiratory Rate 16 Blood Pressure 123/60 Pulse Oximetry 93 Oxygen Delivery Oxygen Flow Rate 08/16/24 08:02 08/16/24 08:50 08/16/24 09:19 Temperature Pulse Rate 80 80 104 H Respiratory Rate 18 Blood Pressure Pulse Oximetry Oxygen Delivery Oxygen Flow Rate 08/16/24 09:27 Temperature Pulse Rate Respiratory Rate Blood Pressure Pulse Oximetry 98 Oxygen Delivery High Flow Nasal Cannula Oxygen Flow Rate 6 Intake/Output Intake/Output: Intake & Output 08/13/24 08/14/24 08/15/24 08/16/24 23:59 23:59 23:59 23:59 Intake Total 2300 995 1660 135 Output Total 1200 900 700 100 Balance 1100 95 960 35 Meds/Results Medications: Active Medications Generic Name Dose Route Start Last Admin Trade Name Freq PRN Reason Stop Dose Admin Acetaminophen 650 mg 07/30/24 16:59 08/15/24 21:55 Acetaminophen 325 Mg Tablet PO 650 mg Q4H PRN Administration Mild Pain (1-3) or Fever Apixaban 5 mg 07/31/24 21:00 08/12/24 10:59 Apixaban 5 Mg Tablet PO 5 mg Q12HR PERFECTO Administration Carbidopa/Levodopa 2 tablet 07/31/24 06:00 08/16/24 05:01 Carbidopa/Levodopa 25/100 Mg Tablet BY MOUTH 2 tablet 0600,1200 PERFECTO Administration Carbidopa/Levodopa 1 tablet 07/30/24 22:55 08/15/24 21:55 Carbidopa/Levodopa 25/100 Mg Tablet BY MOUTH 1 tablet HS PERFECTO Administration Diltiazem HCl 120 mg 08/03/24 12:00 08/16/24 08:50 Diltiazem Hcl Cd 120 Mg Cap.24hr PO 120 mg QAM PERFECTO Administration Furosemide 40 mg 08/09/24 13:05 08/16/24 08:52 Furosemide Inj 40 Mg/4 Ml Vial IV PUSH 40 mg DAILY PERFECTO Administration Guaifenesin 1,200 mg 08/05/24 21:00 08/16/24 08:50 Guaifenesin 12 Hr 600 Mg Tabcr PO 1,200 mg Q12HR PERFECTO Administration Cefepime HCl 1 gm in 50 mls @ 100 mls/hr 08/12/24 16:00 08/16/24 04:55 Maxipime 1 Gm/Ns 50 Ml IVPB Infused Q12H PERFECTO Infusion Doxycycline Hyclate 100 mg in 100 mls @ 100 mls/hr 08/12/24 12:30 08/16/24 08:52 Vibramycin 100 Mg/Ns 100 Ml IVPB 100 mls/hr Q12HR PERFECTO Administration Ipratropium [place] 0.5 mg 08/10/24 14:00 08/16/24 09:18 Ipratropium Br 0.02% Inh Soln 0.5 Mg/2.5 Ml Vial INHALATION 0.5 mg TIDRT PERFECTO Administration Ketorolac Tromethamine 15 mg 08/14/24 15:15 Ketorolac 15 Mg/Ml Vial (*Bkc) IV PUSH Q6H PRN Pain Rated 4-6 Levalbuterol HCl 1.25 mg 08/10/24 14:00 08/16/24 09:18 Levalbuterol Neb 1.25 Mg/3 Ml INHALATION 1.25 mg TIDRT PERFECTO Administration Levothyroxine Sodium 112 mcg 07/31/24 06:30 08/16/24 05:01 Levothyroxine Sodium 112 Mcg Tablet PO 112 mcg DAILY@0630 PERFECTO Administration Metoprolol Tartrate 100 mg 07/30/24 22:50 08/16/24 08:50 Metoprolol Tartrate 50 Mg Tab PO 100 mg Q12HR PERFECTO Administration Ondansetron HCl 4 mg 07/30/24 16:59 Ondansetron Inj 4 Mg/2 Ml Vial IV PUSH Q4H PRN Nausea Polyethylene Glycol 17 gm 08/01/24 14:14 08/01/24 14:26 Polyethylene Glycol 3350 17 Gm Powd.Pack PO 17 gm QAM PRN Administration Constipation Rosuvastatin Calcium 5 mg 07/31/24 09:00 08/16/24 08:50 Rosuvastatin 5 Mg Tablet BY MOUTH 5 mg DAILY PERFECTO Administration Radiology Results: ITS Impressions Chest CT 08/12/24 21:07 IMPRESSION: Large left and small right-sided pleural effusions with adjacent consolidation. Chest X-Ray 08/14/24 14:09 IMPRESSION: Left basilar atelectasis versus pneumonia with minimal effusion. Thoracentesis Ultrasound 08/14/24 14:16 IMPRESSION: 1. Successful ultrasound-guided thoracentesis yielding 300 mL of александр-colored fluid. Knee X-Ray 08/14/24 15:55 IMPRESSION: 1. 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 2. Small to moderate-sized right knee joint effusion and/or synovitis. 3. No evident acute osseous abnormality. Labs Labs: Laboratory Results - last 24 hr 08/15/24 08/15/24 16:18 17:23 WBC 14.5 H RBC 4.76 Hgb 13.7 Hct 43.6 MCV 91.6 MCH 28.8 MCHC 31.4 L RDW 14.5 Plt Count 159 MPV 10.7 H Immature Gran % (Auto) 0.8 H Neut % (Auto) 80.6 H Lymph % (Auto) 7.3 L [place] % (Auto) 11.1 H Eos % (Auto) 0.0 Baso % (Auto) 0.2 Lymph # (Auto) 1.06 [place] # (Auto) 1.6 H Eos # (Auto) 0.0 Baso # (Auto) 0.0 Abs Immat Gran (auto) 0.12 H Absolute Neuts (auto) 11.7 H Absolute Nucleated RBC 0.000 Nucleated RBC % 0.0 Sodium 135 L Potassium 3.8 Chloride 97 L Carbon Dioxide 36 H Anion Gap 2 L BUN 24 H Creatinine 0.61 L Estim Creat Clear Calc 60 Estimated GFR > 60 Glucose 102 Calcium 8.7 Synovial Source Rt knee syn fluid Synovial Color Yellow Synovial Appearance Cloudy A Synovial RBC 5000 H Synovial Nuc Cells 59387 H Synovial Neutrophils 83 H Synovial Lymphocytes 2 Synovial Monocytes 15 Synovial Crystals None seen
--- NOTE | 2024-08-16 15:38 | PCRCNOTE ---
Window of time for administration has passed. See next scheduled administration.
[2024-08-16 15:41] LABS: Basophils Percent Auto 0.3 % (0.2-1.2); Hematocrit 43.1 % (37.0-47.0); Hemoglobin 13.6 g/dL (12.0-15.0); Immature Granulocyte Absolute 0.08 K/mm3 (0.00-0.031); Immature Granulocyte Percent A 0.5 % (0-0.5); Lymphocytes Absolute Auto 0.71 K/mm3 (0.9-3.2); Lymphocytes Percent Auto 4.7 % (18.3-44.2); Mean Corpuscular HGB Conc 31.6 g/dl (32-36); Mean Corpuscular Hemoglobin 29.1 pg (26-34); Mean Corpuscular Volume 92.1 fl (80-100); Monocytes Absolute Auto 1.1 K/mm3 (0.1-0.6); Neutrophils Absolute Auto 13.3 K/mm3 (1.3-6.7); Neutrophils Percent Auto 87.5 % (45.5-73.1); Platelet Count Result 161 k/mm3 (150-375); Red Blood Count 4.68 M/mm3 (4.2-5.4); Red Cell Distribution Width 14.5 % (11.5-14.5); White Blood Count 15.2 K/mm3 (4.5-10.0)
[2024-08-16 15:51] LABS: Anion Gap 4 mmol/L (4-12); Blood Urea Nitrogen 27 mg/dL (7-17); Carbon Dioxide 37 mmol/L (22-30); Chloride 95 mmol/L (98-107); Estimated CRCL calculation 60 ml/min; Estimated Glomerular Filt Rate > 60; Glucose 128 mg/dL (65-110); Sodium 136 mmol/L (137-145)
--- NOTE | 2024-08-16 15:59 | P.PNOP_ITS ---
Progress Note: A&P Assessment and Plan (1) Effusion, right knee: Code(s): M25.461 - Effusion, right knee Status: Acute (2) Arthritis of right knee: Code(s): M17.11 - Unilateral primary osteoarthritis, right knee Status: Acute Plan Knee pain has improved with the aspiration and steroid injection. Likely gout or pseudogout although there were no crystals seen in the aspirate. Uric acid 6.1. 83% neutrophils. No growth to date on cultures. Will continue to follow. May continue PT/OT. Weight bearing as tolerated with a walker. Subjective Subjective Date/Time Seen: 08/16/24 15:59 Interval history: Patient notes significant improvement in pain since the injection. She has been able to get up and walk to the bathroom with her walker. No fever. Review of Systems Review of Systems: All systems reviewed & are unremarkable except as noted in HPI and below Exam Narrative: Alert and oriented x3. Overweight 83 y/o female. Laying comfortably in bed. Sleeping. No acute distress. No distal edema. No ecchymosis. Small joint effusion. Still some Warmth. No erythema. Less tender today. No varicosities. Distal pulses palpable. Normal light touch sensation. No skin lesions. Objective Data Vital Signs Vital Signs: Vital Signs - 24 hr 08/15/24 16:00 08/15/24 19:30 08/15/24 19:41 Temperature Pulse Rate 90 94 Respiratory Rate 18 Blood Pressure Pulse Oximetry 94 Oxygen Delivery High Flow Nasal Cannula Oxygen Flow Rate 6 Fraction of Inspired Oxygen 08/15/24 19:57 08/15/24 20:00 08/15/24 20:00 Temperature Pulse Rate 90 92 Respiratory Rate 18 Blood Pressure Pulse Oximetry 99 Oxygen Delivery Nasal Cannula Oxygen Flow Rate 6 Fraction of Inspired Oxygen 08/15/24 22:00 08/16/24 00:00 08/16/24 04:00 Temperature 97.9 F Pulse Rate 101 H 70 70 Respiratory Rate 20 Blood Pressure 112/64 Pulse Oximetry 94 Oxygen Delivery Oxygen Flow Rate Fraction of Inspired Oxygen 08/16/24 06:00 08/16/24 08:02 08/16/24 08:50 Temperature 97.7 F Pulse Rate 80 80 80 Respiratory Rate 16 Blood Pressure 123/60 Pulse Oximetry 93 Oxygen Delivery Oxygen Flow Rate Fraction of Inspired Oxygen 08/16/24 08:50 08/16/24 09:19 08/16/24 09:27 Temperature Pulse Rate 104 H Respiratory Rate 18 18 Blood Pressure Pulse Oximetry 98 98 Oxygen Delivery High Flow Nasal Cannula High Flow Nasal Cannula Oxygen Flow Rate 6 6 Fraction of Inspired Oxygen 36 08/16/24 12:02 08/16/24 14:00 Temperature 98.3 F Pulse Rate 83 90 Respiratory Rate 20 Blood Pressure 113/60 Pulse Oximetry 92 Oxygen Delivery Oxygen Flow Rate Fraction of Inspired Oxygen Intake/Output Intake/Output: Intake & Output 08/13/24 08/14/24 08/15/24 08/16/24 23:59 23:59 23:59 23:59 Intake Total 2300 995 1660 445 Output Total 1200 900 700 100 Balance 1100 95 960 345 Meds/Results Medications: Active Medications Generic Name Dose Route Start Last Admin Trade Name Freq PRN Reason Stop Dose Admin Acetaminophen 650 mg 07/30/24 16:59 08/15/24 21:55 Acetaminophen 325 Mg Tablet PO 650 mg Q4H PRN Administration Mild Pain (1-3) or Fever Apixaban 5 mg 07/31/24 21:00 08/12/24 10:59 Apixaban 5 Mg Tablet PO 5 mg Q12HR PERFECTO Administration Carbidopa/Levodopa 2 tablet 07/31/24 06:00 08/16/24 13:09 Carbidopa/Levodopa 25/100 Mg Tablet BY MOUTH 2 tablet 0600,1200 PERFECTO Administration Carbidopa/Levodopa 1 tablet 07/30/24 22:55 08/15/24 21:55 Carbidopa/Levodopa 25/100 Mg Tablet BY MOUTH 1 tablet HS PERFECTO Administration Diltiazem HCl 120 mg 08/03/24 12:00 08/16/24 08:50 Diltiazem Hcl Cd 120 Mg Cap.24hr PO 120 mg QAM PERFECTO Administration Furosemide 40 mg 08/09/24 13:05 08/16/24 08:52 Furosemide Inj 40 Mg/4 Ml Vial IV PUSH 40 mg DAILY PERFECTO Administration Guaifenesin 1,200 mg 08/05/24 21:00 08/16/24 08:50 Guaifenesin 12 Hr 600 Mg Tabcr PO 1,200 mg Q12HR PERFECTO Administration Cefepime HCl 1 gm in 50 mls @ 100 mls/hr 08/12/24 16:00 08/16/24 04:55 Maxipime 1 Gm/Ns 50 Ml IVPB Infused Q12H PERFECTO Infusion Doxycycline Hyclate 100 mg in 100 mls @ 100 mls/hr 08/12/24 12:30 08/16/24 10:09 Vibramycin 100 Mg/Ns 100 Ml IVPB Infused Q12HR [facility] Infusion Ipratropium [place] 0.5 mg 08/10/24 14:00 08/16/24 15:38 Ipratropium Br 0.02% Inh Soln 0.5 Mg/2.5 Ml Vial INHALATION Not Given TIDRT [facility] Ketorolac Tromethamine 15 mg 08/14/24 15:15 Ketorolac 15 Mg/Ml Vial (*Bkc) IV PUSH Q6H PRN Pain Rated 4-6 Levalbuterol HCl 1.25 mg 08/10/24 14:00 08/16/24 15:38 Levalbuterol Neb 1.25 Mg/3 Ml INHALATION Not Given TIDRT [facility] Levothyroxine Sodium 112 mcg 07/31/24 06:30 08/16/24 05:01 Levothyroxine Sodium 112 Mcg Tablet PO 112 mcg DAILY@0630 [facility] Administration Metoprolol Tartrate 100 mg 07/30/24 22:50 08/16/24 08:50 Metoprolol Tartrate 50 Mg Tab PO 100 mg Q12HR [facility] Administration Ondansetron HCl 4 mg 07/30/24 16:59 Ondansetron Inj 4 Mg/2 Ml Vial IV PUSH Q4H PRN Nausea Polyethylene Glycol 17 gm 08/01/24 14:14 08/01/24 14:26 Polyethylene Glycol 3350 17 Gm Powd.Pack PO 17 gm QAM PRN Administration Constipation Rosuvastatin Calcium 5 mg 07/31/24 09:00 08/16/24 08:50 Rosuvastatin 5 Mg Tablet BY MOUTH 5 mg DAILY PERFECTO Administration Radiology Results: ITS Impressions Chest CT 08/12/24 21:07 IMPRESSION: Large left and small right-sided pleural effusions with adjacent consolidation. Thoracentesis Ultrasound 08/14/24 14:16 IMPRESSION: 1. Successful ultrasound-guided thoracentesis yielding 300 mL of александр-colored fluid. Knee X-Ray 08/14/24 15:55 IMPRESSION: 1. 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 2. Small to moderate-sized right knee joint effusion and/or synovitis. 3. No evident acute osseous abnormality. Chest X-Ray 08/16/24 15:03 Impression: 1: Left basilar airspace disease which appears to be unchanged. Differential diagnosis includes pneumonia and/or atelectasis. 2: Small left pleural effusion. Labs Labs: Laboratory Results - last 24 hr 08/15/24 08/15/24 08/16/24 16:18 17:23 15:34 WBC 14.5 H RBC 4.76 Hgb 13.7 Hct 43.6 MCV 91.6 MCH 28.8 MCHC 31.4 L RDW 14.5 Plt Count 159 MPV 10.7 H Immature Gran % (Auto) 0.8 H Neut % (Auto) 80.6 H Lymph % (Auto) 7.3 L [place] % (Auto) 11.1 H Eos % (Auto) 0.0 Baso % (Auto) 0.2 Lymph # (Auto) 1.06 [place] # (Auto) 1.6 H Eos # (Auto) 0.0 Baso # (Auto) 0.0 Abs Immat Gran (auto) 0.12 H Absolute Neuts (auto) 11.7 H Absolute Nucleated RBC 0.000 Nucleated RBC % 0.0 Sodium 135 L 136 L Potassium 3.8 4.0 Chloride 97 L 95 L Carbon Dioxide 36 H 37 H Anion Gap 2 L 4 BUN 24 H 27 H Creatinine 0.61 L 0.61 L Estim Creat Clear Calc 60 60 Estimated GFR > 60 > 60 Glucose 102 128 H Calcium 8.7 9.0 Synovial Source Rt knee syn fluid Synovial Color Yellow Synovial Appearance Cloudy A Synovial RBC 5000 H Synovial Nuc Cells 96818 H Synovial Neutrophils 83 H Synovial Lymphocytes 2 Synovial Monocytes 15 Synovial Crystals None seen
[2024-08-16 16:08] LABS: Atypical Lymphocytes Present; Platelet Estimate Adequate (Adequate); Schistocytes None Seen
[2024-08-16] MEDS: CARBIDOPA/LEVODOPA 25/100 MG TABLET 1 TABLET BY MOUTH (21:53)
[2024-08-16] MEDS: ACETAMINOPHEN 325 MG TABLET 650 MG PO (21:53)
[2024-08-16] MEDS: APIXABAN 5 MG TABLET PO (21:53)
[2024-08-17] VITALS (19 sets, daily range): BP systolic 117–133; BP diastolic 64–70; PULSE 66–108; RESP 18; TEMP 36–36.6; O2SAT 85–98
[2024-08-17] MEDS: CEFEPIME 1 GM/NS 50 ML 1 GM/50 ML BAG IVPB (03:10)
[2024-08-17] MEDS: LEVOTHYROXINE SODIUM 112 MCG TABLET PO (05:48)
[2024-08-17] MEDS: CARBIDOPA/LEVODOPA 25/100 MG TABLET 2 TABLET BY MOUTH (05:48)
--- NOTE | 2024-08-17 08:14 | PM.IMPN ---
Progress Note: A&P Assessment and Plan (1) Influenza A: Code(s): J10.1 - Influenza due to other identified influenza virus with other respiratory manifestations Status: Acute (2) CHF exacerbation: Code(s): I50.9 - Heart failure, unspecified Status: Acute (3) Acute respiratory distress: Code(s): R06.03 - Acute respiratory distress Status: Inactive (4) Atrial fibrillation: Qualifiers: Atrial fibrillation type: unspecified Qualified Code(s): I48.91 - Unspecified atrial fibrillation Code(s): I48.91 - Unspecified atrial fibrillation Status: Acute (5) Hyperlipidemia: Qualifiers: Hyperlipidemia type: mixed hyperlipidemia Qualified Code(s): E78.2 - Mixed hyperlipidemia Code(s): E78.5 - Hyperlipidemia, unspecified Status: Acute (6) Essential hypertension: Code(s): I10 - Essential (primary) hypertension Status: Acute (7) Parkinson's 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, without mention of fluctuations: Qualifiers: Fluctuating manifestations: without fluctuating manifestations Qualified Code(s): G20.A1 - Parkinson's 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, without mention of fluctuations Code(s): G20.A1 - Parkinson's 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, without mention of fluctuations Status: Acute Plan This is an 83-year-old female presents to the ED with increased generalized weakness fatigue and went to urgent care where she was found to be hypoxic. She also reported cough.On the ED evaluation she was hypoxic 84% on room air was placed on 4 L oxygen via nasal cannula mildly tachycardic. AFib on EKG.Laboratory data showed normal WBC 7.8 hemoglobin of 15.4 platelet 186 Chem panel was unremarkable. BNP was elevated at 3840. Influenza RSV COVID swab tested positive for influenza A. Chest x-ray showed mild pulmonary vascular congestion with small bilateral pleural effusion and adjacent compressive atelectasis. Patient on chronic anticoagulation with apixaban. Acute respiratory failure with hypoxemia Possible due to influenza infection and superimposed acute heart failure, pneumonia and pleural effusion Patient admitted started on Tamiflu for influenza a. Finished course of Tamiflu Acute hypoxic respiratory failure oxygen as tolerated. Because of atrial fibrillation DuoNeb to Xopenex and ipratropium. Droplet isolation to continue. Appreciate pulmonary consultation Patient was placed on BiPAP, chronic see Off BiPAP. Patient is on 6 L oxygen via nasal cannular 08/16 Patient is on oxygen 2. Continue O2 therapy and home Influenza a infection Finished Tamiflu all Large left pleural effusion and adjacent consultation Suggesting possible pneumonia Unclear etiology of pleural effusion overnight hypoxia still prsent requiring 8l oxygen. need thoracentesis. hold eliquis is on hold Order left chest thoracentesis, 300 mL fluid was removed, cytology: The cytologic findings are consistent with the patient's history of influenza A and heart failure per pathologist report. Gram stain and culture of pleural no growth Consulted water regulator and valve repairer, appreciate water regulator and valve repairer recommendation Patient will follow-up with pulmonology in the office Changed to oral antibiotics and discharge acute congestive heart failure. No prior diagnosis of congestive heart failure the she has been worked up for dyspnea on exertion in the past. Cardiology consulted. IV Lasix b.i.d. repeat chest x-ray with improved congestion. echo 2021 with EF 70% trace TR RVSP 37 mild LVH. Repeat echo 08/03/24 with 65-70%. Mild aortic valve stenosis mobile density attached to the posterior annulus of the mitral valve most likely calcified nodule. Echo with bubble study negative. Changed to Lasix 40 mg daily p.o. Suspected restrictive lung disease follow-up with pulmonology Atrial fibrillation with rapid ventricular rate cardiology on board changed to Xopenex continue home metoprolol and Eliquis Hold blood thinner for thoracentesis Resume blood thinner on discharge Right knee pain Swelling, no erythematous change X-ray shows mild to moderate right knee fluid Uric acid 6.1 Consult orthopedic Right knee aspiration was performed, cultures no growth Hypertension continue home medication Hyperlipidemia continue home medication Parkinson's disease continue home medication Sleep apnea uses oxygen at night. overnight oxygen at 8 Hypothyroidism; continue home medication DVT prophylaxis on Eliquis Code status do not resuscitate Disposition home with home health planned Subjective Date/time seen: 08/17/24 08:14 Interval history: I saw exam patient today. Patient feels comfortable in bed, patient denies chest pain shortness of breath at rest. Patient is afebrile, blood pressure stable. Patient is on 2-3 L oxygen. Labs reviewed, leukocytosis improving hemoglobin 14.6 chemistry unremarkable, urine creatinine stable Exam Narrative: GENERAL: Pleasant, in no acute distress. Well-nourished. - EYES: EOMI. Anicteric. - HENT: Moist mucous membranes. - LUNGS: Clear to auscultation bilaterally, no wheezing, rhonchi, or rales. - CARDIOVASCULAR: Regular rate and rhythm. No murmur. No JVD. - ABDOMEN: Soft, non-tender and non-distended. No palpable masses. - EXTREMITIES: No edema. Peripheral pulses 2+. Non-tender. - NEUROLOGIC: No focal neurological deficits. CN II-XII grossly intact. General weakness - PSYCHIATRIC: Awake, Alert and oriented x 3. Appropriate mood and affect. - SKIN: No rashes or lesions. Warm. - LYMPH: No cervical lymphadenopathy. Objective Data Vital Signs Vital Signs: Vital Signs - 24 hr 08/16/24 08:50 08/16/24 08:50 08/16/24 09:19 Temperature Pulse Rate 80 104 H Respiratory Rate 18 18 Blood Pressure Pulse Oximetry 98 Oxygen Delivery High Flow Nasal Cannula Oxygen Flow Rate 6 Fraction of Inspired Oxygen 36 08/16/24 09:27 08/16/24 12:02 08/16/24 14:00 Temperature 98.3 F Pulse Rate 83 90 Respiratory Rate 20 Blood Pressure 113/60 Pulse Oximetry 98 92 Oxygen Delivery High Flow Nasal Cannula Oxygen Flow Rate 6 Fraction of Inspired Oxygen 08/16/24 16:02 08/16/24 20:00 08/16/24 20:00 Temperature Pulse Rate 74 88 Respiratory Rate Blood Pressure Pulse Oximetry 92 Oxygen Delivery Nasal Cannula Oxygen Flow Rate 3 Fraction of Inspired Oxygen 08/16/24 21:40 08/16/24 21:40 08/16/24 21:53 Temperature Pulse Rate 88 81 Respiratory Rate 18 18 Blood Pressure Pulse Oximetry 92 Oxygen Delivery High Flow Nasal Cannula Oxygen Flow Rate 3 Fraction of Inspired Oxygen 08/16/24 22:00 08/17/24 00:00 08/17/24 01:28 Temperature 97.3 F L Pulse Rate 85 66 Respiratory Rate 16 Blood Pressure 127/56 L Pulse Oximetry 92 92 Oxygen Delivery High Flow Therapy with Na Oxygen Flow Rate 4 Fraction of Inspired Oxygen 08/17/24 04:00 08/17/24 06:00 Temperature 97.8 F Pulse Rate 70 70 Respiratory Rate 18 Blood Pressure 133/70 Pulse Oximetry 90 Oxygen Delivery Oxygen Flow Rate Fraction of Inspired Oxygen Intake/Output Intake/Output: Intake & Output 08/14/24 08/15/24 08/16/24 08/17/24 23:59 23:59 23:59 23:59 Intake Total 995 1660 595 490 Output Total 900 700 100 250 Balance 95 960 495 240 Meds/Results Medications: Active Medications Generic Name Dose Route Start Last Admin Trade Name Freq PRN Reason Stop Dose Admin Acetaminophen 650 mg 07/30/24 16:59 08/16/24 21:53 Acetaminophen 325 Mg Tablet PO 650 mg Q4H PRN Administration Mild Pain (1-3) or Fever Apixaban 5 mg 07/31/24 21:00 08/16/24 21:53 Apixaban 5 Mg Tablet PO 5 mg Q12HR PERFECTO Administration Carbidopa/Levodopa 2 tablet 07/31/24 06:00 08/17/24 05:48 Carbidopa/Levodopa 25/100 Mg Tablet BY MOUTH 2 tablet 0600,1200 PERFECTO Administration Carbidopa/Levodopa 1 tablet 07/30/24 22:55 08/16/24 21:53 Carbidopa/Levodopa 25/100 Mg Tablet BY MOUTH 1 tablet HS PERFECTO Administration Diltiazem HCl 120 mg 08/03/24 12:00 08/16/24 08:50 Diltiazem Hcl Cd 120 Mg Cap.24hr PO 120 mg QAM PERFECTO Administration Furosemide 40 mg 08/09/24 13:05 08/16/24 08:52 Furosemide Inj 40 Mg/4 Ml Vial IV PUSH 40 mg DAILY PERFECTO Administration Guaifenesin 1,200 mg 08/05/24 21:00 08/16/24 21:53 Guaifenesin 12 Hr 600 Mg Tabcr PO 1,200 mg Q12HR PERFECTO Administration Cefepime HCl 1 gm in 50 mls @ 100 mls/hr 08/12/24 16:00 08/17/24 03:40 Maxipime 1 Gm/Ns 50 Ml IVPB Infused Q12H PERFECTO Infusion Doxycycline Hyclate 100 mg in 100 mls @ 100 mls/hr 08/12/24 12:30 08/16/24 22:54 Vibramycin 100 Mg/Ns 100 Ml IVPB Infused Q12HR PERFECTO Infusion Ipratropium [place] 0.5 mg 08/10/24 14:00 08/16/24 21:40 Ipratropium Br 0.02% Inh Soln 0.5 Mg/2.5 Ml Vial INHALATION 0.5 mg TIDRT PERFECTO Administration Ketorolac Tromethamine 15 mg 08/14/24 15:15 Ketorolac 15 Mg/Ml Vial (*Bkc) IV PUSH Q6H PRN Pain Rated 4-6 Levalbuterol HCl 1.25 mg 08/10/24 14:00 08/16/24 21:40 Levalbuterol Neb 1.25 Mg/3 Ml INHALATION 1.25 mg TIDRT PERFECTO Administration Levothyroxine Sodium 112 mcg 07/31/24 06:30 08/17/24 05:48 Levothyroxine Sodium 112 Mcg Tablet PO 112 mcg DAILY@0630 PERFECTO Administration Metoprolol Tartrate 100 mg 07/30/24 22:50 08/16/24 21:53 Metoprolol Tartrate 50 Mg Tab PO 100 mg Q12HR PERFECTO Administration Ondansetron HCl 4 mg 07/30/24 16:59 Ondansetron Inj 4 Mg/2 Ml Vial IV PUSH Q4H PRN Nausea Polyethylene Glycol 17 gm 08/01/24 14:14 08/01/24 14:26 Polyethylene Glycol 3350 17 Gm Powd.Pack PO 17 gm QAM PRN Administration Constipation Rosuvastatin Calcium 5 mg 07/31/24 09:00 08/16/24 08:50 Rosuvastatin 5 Mg Tablet BY MOUTH 5 mg DAILY PERFECTO Administration Radiology Results: ITS Impressions Chest CT 08/12/24 21:07 IMPRESSION: Large left and small right-sided pleural effusions with adjacent consolidation. Thoracentesis Ultrasound 08/14/24 14:16 IMPRESSION: 1. Successful ultrasound-guided thoracentesis yielding 300 mL of александр-colored fluid. Knee X-Ray 08/14/24 15:55 IMPRESSION: 1. 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 2. Small to moderate-sized right knee joint effusion and/or synovitis. 3. No evident acute osseous abnormality. Chest X-Ray 08/16/24 15:03 Impression: 1: Left basilar airspace disease which appears to be unchanged. Differential diagnosis includes pneumonia and/or atelectasis. 2: Small left pleural effusion. Labs Labs: Laboratory Results - last 24 hr 08/16/24 15:34 WBC 15.2 H RBC 4.68 Hgb 13.6 Hct 43.1 MCV 92.1 MCH 29.1 MCHC 31.6 L RDW 14.5 Plt Count 161 MPV 11.0 H Immature Gran % (Auto) 0.5 Neut % (Auto) 87.5 H Lymph % (Auto) 4.7 L [place] % (Auto) 7.0 Eos % (Auto) 0.0 Baso % (Auto) 0.3 Lymph # (Auto) 0.71 L [place] # (Auto) 1.1 H Eos # (Auto) 0.0 Baso # (Auto) 0.0 Abs Immat Gran (auto) 0.08 H Absolute Neuts (auto) 13.3 H Absolute Nucleated RBC 0.000 Nucleated RBC % 0.0 Atypical Lymphocytes Present Platelet Estimate Adequate Schistocytes None seen Sodium 136 L Potassium 4.0 Chloride 95 L Carbon Dioxide 37 H Anion Gap 4 BUN 27 H Creatinine 0.61 L Estim Creat Clear Calc 60 Estimated GFR > 60 Glucose 128 H Calcium 9.0
--- NOTE | 2024-08-17 08:16 | PM.DS ---
DS: Admitting Diagnosis Discharge Date 08/17/24 Admitting Diagnosis (1) Influenza A: Code(s): J10.1 - Influenza due to other identified influenza virus with other respiratory manifestations Status: Acute (2) CHF exacerbation: Code(s): I50.9 - Heart failure, unspecified Status: Acute (3) Acute respiratory distress: Code(s): R06.03 - Acute respiratory distress Status: Inactive (4) Atrial fibrillation: Qualifiers: Atrial fibrillation type: unspecified Qualified Code(s): I48.91 - Unspecified atrial fibrillation Code(s): I48.91 - Unspecified atrial fibrillation Status: Acute (5) Hyperlipidemia: Qualifiers: Hyperlipidemia type: mixed hyperlipidemia Qualified Code(s): E78.2 - Mixed hyperlipidemia Code(s): E78.5 - Hyperlipidemia, unspecified Status: Acute (6) Essential hypertension: Code(s): I10 - Essential (primary) hypertension Status: Acute (7) Parkinson's 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, without mention of fluctuations: Qualifiers: Fluctuating manifestations: without fluctuating manifestations Qualified Code(s): G20.A1 - Parkinson's 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, without mention of fluctuations Code(s): G20.A1 - Parkinson's 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, without mention of fluctuations Status: Acute DS: Discharge Diagnosis Discharge Diagnosis (1) Influenza A: Code(s): J10.1 - Influenza due to other identified influenza virus with other respiratory manifestations Status: Acute (2) CHF exacerbation: Code(s): I50.9 - Heart failure, unspecified Status: Acute (3) Acute respiratory distress: Code(s): R06.03 - Acute respiratory distress Status: Inactive (4) Atrial fibrillation: Qualifiers: Atrial fibrillation type: unspecified Qualified Code(s): I48.91 - Unspecified atrial fibrillation Code(s): I48.91 - Unspecified atrial fibrillation Status: Acute (5) Hyperlipidemia: Qualifiers: Hyperlipidemia type: mixed hyperlipidemia Qualified Code(s): E78.2 - Mixed hyperlipidemia Code(s): E78.5 - Hyperlipidemia, unspecified Status: Acute (6) Essential hypertension: Code(s): I10 - Essential (primary) hypertension Status: Acute (7) Parkinson's 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, without mention of fluctuations: Qualifiers: Fluctuating manifestations: without fluctuating manifestations Qualified Code(s): G20.A1 - Parkinson's 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, without mention of fluctuations Code(s): G20.A1 - Parkinson's 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, without mention of fluctuations Status: Acute DS: Summary Hospital Course Hospital Course: This is an 83-year-old female presents to the ED with increased generalized weakness fatigue and went to urgent care where she was found to be hypoxic. She also reported cough.On the ED evaluation she was hypoxic 84% on room air was placed on 4 L oxygen via nasal cannula mildly tachycardic. AFib on EKG.Laboratory data showed normal WBC 7.8 hemoglobin of 15.4 platelet 186 Chem panel was unremarkable. BNP was elevated at 3840. Influenza RSV COVID swab tested positive for influenza A. Chest x-ray showed mild pulmonary vascular congestion with small bilateral pleural effusion and adjacent compressive atelectasis. Patient on chronic anticoagulation with apixaban. The following med issues have been addressed during hospitalization Acute respiratory failure with hypoxemia Possible due to influenza infection and superimposed acute heart failure, pneumonia and pleural effusion Patient admitted started on Tamiflu for influenza a. Finished course of Tamiflu Acute hypoxic respiratory failure oxygen as tolerated. Because of atrial fibrillation DuoNeb to Xopenex and ipratropium. Droplet isolation to continue. Appreciate pulmonary consultation Patient was placed on BiPAP, chronic see Off BiPAP. Patient is on 6 L oxygen via nasal cannular 08/16 Patient is on oxygen 2. Continue O2 therapy and home Influenza a infection Finished Tamiflu all Large left pleural effusion and adjacent consultation Suggesting possible pneumonia Unclear etiology of pleural effusion overnight hypoxia still prsent requiring 8l oxygen. need thoracentesis. hold eliquis is on hold Order left chest thoracentesis, 300 mL fluid was removed, cytology: The cytologic findings are consistent with the patient's history of influenza A and heart failure per pathologist report. Gram stain and culture of pleural no growth Consulted subassemblies wirer, appreciate subassemblies wirer recommendation Patient will follow-up with pulmonology in the office Changed to oral antibiotics and discharge acute congestive heart failure. No prior diagnosis of congestive heart failure the she has been worked up for dyspnea on exertion in the past. Cardiology consulted. IV Lasix b.i.d. repeat chest x-ray with improved congestion. echo 2021 with EF 70% trace TR RVSP 37 mild LVH. Repeat echo 08/03/24 with 65-70%. Mild aortic valve stenosis mobile density attached to the posterior annulus of the mitral valve most likely calcified nodule. Echo with bubble study negative. Changed to Lasix 40 mg daily p.o. Suspected restrictive lung disease follow-up with pulmonology Atrial fibrillation with rapid ventricular rate cardiology on board changed to Xopenex continue home metoprolol and Eliquis Hold blood thinner for thoracentesis Resume blood thinner on discharge Right knee pain Swelling, no erythematous change X-ray shows mild to moderate right knee fluid Uric acid 6.1 Consult orthopedic Right knee aspiration was performed, cultures no growth Hypertension continue home medication Hyperlipidemia continue home medication Parkinson's disease continue home medication Sleep apnea uses oxygen at night. overnight oxygen at 8 Hypothyroidism; continue home medication Discharge patient to home with home health planned Time Spent with Patient Time attestation: Total time spent providing and/or coordinating discharge services: Exam Narrative: GENERAL: Pleasant, in no acute distress. Well-nourished. - EYES: EOMI. Anicteric. - HENT: Moist mucous membranes. - LUNGS: Clear to auscultation bilaterally, no wheezing, rhonchi, or rales. - CARDIOVASCULAR: Regular rate and rhythm. No murmur. No JVD. - ABDOMEN: Soft, non-tender and non-distended. No palpable masses. - EXTREMITIES: No edema. Peripheral pulses 2+. Non-tender. - NEUROLOGIC: No focal neurological deficits. CN II-XII grossly intact. General weakness - PSYCHIATRIC: Awake, Alert and oriented x 3. Appropriate mood and affect. - SKIN: No rashes or lesions. Warm. - LYMPH: No cervical lymphadenopathy. DS: Data Data Completed and Pending Completed studies during hospitalization: Pending at discharge 08/14/24 10:57 Cytology [PTH] Routine Labs on day of discharge: Labs from last 24 hours 08/16/24 15:34 WBC 15.2 H RBC 4.68 Hgb 13.6 Hct 43.1 MCV 92.1 MCH 29.1 MCHC 31.6 L RDW 14.5 Plt Count 161 MPV 11.0 H Immature Gran % (Auto) 0.5 Neut % (Auto) 87.5 H Lymph % (Auto) 4.7 L [place] % (Auto) 7.0 Eos % (Auto) 0.0 Baso % (Auto) 0.3 Lymph # (Auto) 0.71 L [place] # (Auto) 1.1 H Eos # (Auto) 0.0 Baso # (Auto) 0.0 Abs Immat Gran (auto) 0.08 H Absolute Neuts (auto) 13.3 H Absolute Nucleated RBC 0.000 Nucleated RBC % 0.0 Atypical Lymphocytes Present Platelet Estimate Adequate Schistocytes None seen Sodium 136 L Potassium 4.0 Chloride 95 L Carbon Dioxide 37 H Anion Gap 4 BUN 27 H Creatinine 0.61 L Estim Creat Clear Calc 60 Estimated GFR > 60 Glucose 128 H Calcium 9.0 Preliminary micro results at discharge 08/15/24 17:23 Anaerobic Culture - Preliminary Synovial Fluid Right Knee Aerobic Culture - Preliminary 08/14/24 13:47 Aerobic Culture - Preliminary Chest Discharge Plan Discharge Attending physician on discharge: Imani Cook Consulting providers: Lynn Sanchez; Clarissa Sweeney; Ry Weinberg Discharging Clinician: Imani Cook Anticipated Discharge Date/Time: 08/17/24 09:19 Patient Disposition: Home Health Service Discharge Instructions: Per Care Coordination: [facility] [phone] has been arranged for RN/PT/OT eval and treat. They will call you regarding arrangement for first visit. Patient Instructions: Antibiotic Form, Heart Failure (DC), Pain Management in Older Adults (DC), Influenza (GEN) Patient Language: Pashto Stand Alone Forms: General Discharge Information Follow-up/Referrals: Evita Charlton APRN [Primary Care Provider] - (Patient needs to see PCP in 1 week) Clarissa Sweeney MD [Physician] - (Patient needs to see subassemblies wirer doctor scheduled appointment) Discharge Medications: New doxycycline hyclate 100 mg capsule 100 mg PO DAILY Qty: 6 0RF cefdinir 300 mg capsule 300 mg PO Q12H Qty: 6 0RF furosemide [Lasix] 40 mg tablet 40 mg PO DAILY Qty: 30 0RF Continued Eliquis 2.5 mg tablet 2.5 mg PO BID amlodipine 5 mg tablet 5 mg PO .daily cholecalciferol (vitamin D3) 25 mcg (1,000 unit) capsule 25 mcg PO QAM mecobalamin (vitamin B12) 1,000 mcg tablet,chewable 1,000 mcg PO QAM rosuvastatin 5 mg tablet See Rx Instructions .ROUTE .COMPLEX Qty: 90 1RF Dose Instruction: TAKE 1 TABLET BY MOUTH EVERY DAY Rx Instructions: TAKE 1 TABLET BY MOUTH EVERY DAY carbidopa-levodopa 25-100 mg tablet See Rx Instructions .ROUTE .COMPLEX Qty: 450 1RF Dose Instruction: TAKE 2 TABLETS BY MOUTH AT 6 AM AND 2 TABLETS BY MOUTH AT NOON, THEN 1 TABLET BY MOUTH AT NIGHT Rx Instructions: TAKE 2 TABLETS BY MOUTH AT 6 AM AND 2 TABLETS BY MOUTH AT NOON, THEN 1 TABLET BY MOUTH AT NIGHT levothyroxine [Levo-T] 112 mcg tablet 112 mcg PO DAILY Qty: 90 1RF metoprolol tartrate 100 mg tablet 100 mg PO BID Qty: 180 1RF Rx Instructions: TAKE 1 TABLET BY MOUTH TWICE A DAY Date of admission: 07/30/24 18:34 Primary Care Provider: Evita Charlton Admitting Provider: Mariza Mcdonald Attending physician on admission: Mariza Mcdonald Condition: Stable
[2024-08-17 08:53] LABS: Basophils Percent Auto 0.2 % (0.2-1.2); Hematocrit 45.6 % (37.0-47.0); Hemoglobin 14.6 g/dL (12.0-15.0); Immature Granulocyte Absolute 0.07 K/mm3 (0.00-0.031); Immature Granulocyte Percent A 0.6 % (0-0.5); Lymphocytes Absolute Auto 1.03 K/mm3 (0.9-3.2); Lymphocytes Percent Auto 9.1 % (18.3-44.2); Mean Corpuscular Hemoglobin 29.4 pg (26-34); Mean Corpuscular Volume 91.9 fl (80-100); Mean Platelet Volume 10.8 fl (7.4-10.4); Monocytes Absolute Auto 0.7 K/mm3 (0.1-0.6); Monocytes Percent Auto 6.3 % (2.6-8.5); Neutrophils Absolute Auto 9.5 K/mm3 (1.3-6.7); Neutrophils Percent Auto 83.8 % (45.5-73.1); Platelet Count Result 171 k/mm3 (150-375); Red Blood Count 4.96 M/mm3 (4.2-5.4); Red Cell Distribution Width 14.5 % (11.5-14.5); White Blood Count 11.4 K/mm3 (4.5-10.0)
[2024-08-17 09:15] LABS: Blood Urea Nitrogen 29 mg/dL (7-17); Calcium 9.5 mg/dL (8.4-10.2); Chloride 96 mmol/L (98-107); Estimated CRCL calculation 58 ml/min; Estimated Glomerular Filt Rate > 60; Glucose 108 mg/dL (65-110); Sodium 138 mmol/L (137-145)
[2024-08-17] MEDS: LEVALBUTEROL NEB 1.25 MG/3 ML INHALATION (09:17)
[2024-08-17] MEDS: IPRATROPIUM BR 0.02% INH SOLN 0.5 MG/2.5 ML VIAL INHALATION (09:17)
[2024-08-17] MEDS: dilTIAZem HCL CD 120 MG CAP.24HR PO (09:51)
[2024-08-17] MEDS: guaiFENesin 12 HR 600 MG TABCR 1200 MG PO (09:52)
[2024-08-17] MEDS: APIXABAN 5 MG TABLET PO (09:52)
[2024-08-17] MEDS: ROSUVASTATIN 5 MG TABLET BY MOUTH (09:52)
[2024-08-17] MEDS: METOPROLOL TARTRATE 50 MG TAB 100 MG PO (09:52)
[2024-08-17] MEDS: DOXYCYCLINE 100 MG/NS 100 ML 100 MG/100 ML BAG IVPB (09:54)
[2024-08-17 10:27] LABS: Anion Gap 7 mmol/L (4-12); Carbon Dioxide 35 mmol/L (22-30)
--- NOTE | 2024-08-17 10:38 | PM.PNPUL ---
Progress Note: A&P Assessment and Plan (1) Influenza A: Code(s): J10.1 - Influenza due to other identified influenza virus with other respiratory manifestations Status: Acute Assessment and Plan: 08/04/23: overall the patient tells me she has a little bit better. She is afebrile. White blood cell count 9.3. Creatinine 1.0. Patient is afebrile. CRP is 0.5. Procalcitonin 0.1. Currently she is on 7 L nasal cannula oxygen with saturations 95%. Chest x-ray today shows an enlarged left lower lobe consolidation consistent with effusion and/or atelectasis. Later in the day CT scan of the chest showed a small left pleural effusion with left lower lobe consolidation with air bronchograms. Plan: Agree with treatment for influenza a pneumonia. Currently she is on day 4 of Tamiflu. She is now off systemic steroids. She was empirically started on vancomycin and ceftriaxone on 08/03/2024 and would continue for now. Goal saturation 90-94%. The patient tells me she improves with levalbuterol and ipratropium nebulizers q.6 hours and will continue. Continue guaifenesin 600 mg p.o. q.12 hours. Continue incentive spirometry and Cornet flutter valve. 08/05/24: Overall the patient states she has a little bit better. She has a moist cough but is unable to bring up any phlegm. Currently she is on 7 L nasal cannula saturations 90%. She is afebrile, creatinine is 1.0. Plan: continue Tamiflu, day 6. Recommend treating for 10 days. MRSA swab negative, vancomycin discontinued. Continue ceftriaxone, day 3. Continue levalbuterol and ipratropium nebulizers q.6 and guaifenesin will increase to 1200 mg twice a day. Later in the day patient had worsening oxygenation requiring 13 L nasal cannula. ABG on 13 L 7.44/50/59. 08/06/2024: Patient continues to tell me she does a little bit better each day. She has a dry cough, no phlegm, no hemoptysis. Patient was in the middle of a physical therapy session and had just walked from the her bed to the door and back on 10 L nasal cannula her saturations were 98%. White blood cell count 11.7, creatinine 0.8. BNP 3090 improved from 4430. Plan: Continue Tamiflu, day 7, renally adjusted. Continue ceftriaxone day 4, continue levalbuterol and ipratropium nebulizers q.6 and guaifenesin 1200 twice a day. 08/07/2024: The patient tells me she continues to improve each day. Currently she is on 8 L nasal cannula saturations 96%. She is afebrile. White blood cell count 11.3, creatinine 0.62. she performed Cornet flutter valve with me. She performed incentive spirometry at 600 mL. Plan: Continue Tamiflu, day 8. Continue ceftriaxone, day 5. Continue levalbuterol and ipratropium nebulizers. Continue guaifenesin 1200 twice a day. Goal saturation 90-94%, wean as tolerated. I discussed this with the bedside nurse. 08/08/2024: Patient had episode of desaturation early in the morning. She required 15 L face mask. I ordered a chest x-ray this morning which shows consolidation in the left lower lobe with no change from 08/04/2024. Today she tells me that she continues to slowly improve. Her cough and phlegm persist but are better. Her white blood cell count is 11.1, creatinine is 0.59. Cumulative she is positive 2.7 L since admission. Bubble study was negative. BNP 3690. Plan: Continue Tamiflu, day 9. Continue ceftriaxone, day 6. Continue levalbuterol and ipratropium nebulizers and change to while awake. Continue guaifenesin 1200 twice a day. Goal saturation 90-94%, wean as tolerated. I discussed this with the bedside nurse. I will give Lasix 20 mg IV x1 today. 08/09/24: Patient has been stable since yesterday morning. She states she is a little better. She is debilitated but she is doing some walking. She has a dry cough. She is afebrile. Currently she is on 6 L nasal cannula saturations 92%. Patient had an overnight oximetry on 6 L with recording duration 5 hours and 21 minutes. Average saturation 92%. Low saturation 87%. Time with saturation less than or equal to 88% was 6 minutes. Oxygen desaturation index 2.3. She will finish day 10 of Tamiflu and day 7 of ceftriaxone today. Plan: Last day of Tamiflu, day 10. Last day of ceftriaxone day 7. Continue levalbuterol and ipratropium nebulizers. Continue incentive spirometry, I will give 40 of Lasix today. 08/10/24: Patient says she improves a little bit each day. She says the cough is better. She did have nose bleeding this morning. When I enter the room she was on 7 L with saturations 97%. I decreased her to 4 L for 6 minutes and her saturations remain 96% I decreased her to 3 L and her saturations remained 95 % for 5 minutes. I placed her on room air and after 3 minutes she desaturated to 89%. I placed her back on 2 L and her saturations were 94%. Patient given 40 of Lasix yesterday and she was positive 1.6 L, cumulative she is positive 5.1 L. Her weight is 74.9 today. Plan: Patient is slowly improving. She walked in the halls yesterday. Oxygen improved this morning and down to 2 L. overnight oximetry was worse on 7 L than 6 L. she said she had no problems with a nasal cannula coming off last night. continue incentive spirometry, Cornet flutter valve, guaifenesin 1200 p.o. b.i.d. From a pulmonary perspective patient when the patient is ready to be discharged she should be on these pulmonary medications: Anoro Ellipta 62.5-25 at 1 puff q.day Rescue albuterol 2 puffs q.4 hours p.r.n. shortness of breath or wheezing Guaifenesin 1200 mg p.o. b.i.d. p.r.n. Oxygen at rest and with ambulation per formal home O2 assessment on the day of discharge Oxygen at night as guided by overnight oximetry on 8 L which will be performed tonight. 08/14/24: Slowly improving, lower )2 need, thoracentesis results pending. She feels less short of breath after removal of 300 ml александр fluid left pleural space. (2) Hypoxia: Code(s): R09.02 - Hypoxemia Status: Acute Assessment and Plan: At baseline she had dyspnea on exertion and required 2 L oxygen at night and none with rest or with activity. 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 plan: Patient currently on 7 L nasal cannula. Suspect her current hypoxemia is related to influenza pneumonia with a small left pleural effusion and consolidation in the left lower lobe. Continue treatment as above. 08/05/2024: Currently she is on 7 L nasal cannula saturations 90%. Plan: Treatment for influenza pneumonia as above. Will continue Cornet flutter valve. Will add EzPAP. Out of bed to chair as tolerated. 08/06/24: Patient was on 13 L nasal cannula yesterday and today has been decreased to 10 L nasal cannula. Plan: Continue Tamiflu as above. Continue Cornet flutter valve, incentive spirometry which she is doing 600 mL, and EzPAP. Will order echo with bubble study. 08/07/23: Oxygenation slowly improving. She is back to 8 L and right now with a saturation of 96% will try to wean to maintain saturations 90 %. Echo with bubble study pending. Continue Cornet flutter valve, incentive spirometry q.2 hours while awake. The daughter is at the bedside and will try to reinforce this. Continue out of bed and physical therapy as tolerated. 08/08/23: When I enter the room she was on 10 L nasal cannula saturations 99%. I decreased her to 6 L nasal cannula and after 6 minutes her saturations were 97%. I decreased her to 5 L and after 12 minutes her saturation was 97%. Plan: Goal saturation 90-94%. Wean accordingly. I will order overnight oximetry on 6 L tonight. 08/09/24: Patient had an overnight oximetry on 6 L with recording duration 5 hours and 21 minutes. Average saturation 92%. Low saturation 87%. Time with saturation less than or equal to 88% was 6 minutes. Oxygen desaturation index 2.3. Plan: I will repeat overnight oximetry on 7 L. 08/10/24: Patient had an overnight oximetry on 7 L with recording duration of 6 hours and 6 minutes. Average saturation 90%. Low saturation 79%. Time with saturation less than or equal to 88% was 75 minutes. Oxygen desaturation index 1.0. Plan: I will repeat an overnight oximetry on 8 L tonight. 08/14/24: she had thoracentesis on L side today, 300 ml александр fluid removed, results are pending. She is on 6 L/min, sat is 96%. 08/14/24 CXR : IMPRESSION: Left basilar atelectasis versus pneumonia with minimal effusion. 08/17/24 : stable for discharge, has O2 concentrator at home for use at night, will need portable O2 for daytime activity. Plan plan: She is stable for discharge today. No supplemental O2 needed at rest, 3 L with exertion and sleep. She already has concentrator at home for use at night. Now, using in the day is new, and she will need portable tank for exertion. She can follow up in the office in 3-4 weeks. CXR PA and lateral. before the visit. Pleural fluid did not have tests performed. She lost her IV today, does not need another one, can have oral Lasix and doxycycline. INFORMATION FOR BUYING AND USING OXIMETER Buying an oximeter; look on [employer] or other site; find an oximeter that is health grade, not sports grade. You will need 2 triple A batteries. The technology is similar in all the devices. Select one that you like. Guide on Using an Oximeter 1. Preparation: Make sure that your finger is clean and free from nail ghanaian or any false nails as these can interfere with the reading. 2. Turn on the Oximeter: Press the power button on the oximeter. Wait for it to turn on completely. Some models may require a few seconds to initialize. 3. Insert the Finger: put your finger in the rubber hole of the oximeter. Ensure the finger is pressed all the way in, with the nail side up. 4. Start the Reading: Once the finger is properly positioned, release the clip. The oximeter will start measuring. Make sure the hand still for an accurate reading. 5. Read the Display: After a few seconds, the oximeter will display the SpO2 (oxygen saturation) and pulse rate readings. The SpO2 reading is typically a percentage and the pulse rate is typically beats per minute. 6. Record the Results: Document the readings on a note pad, if you wish. 7. Turn Off the Oximeter: After recording the results, remove the finger from the device and turn off the oximeter to conserve battery life. Remember to clean the oximeter after each use following the surfacing technician's instructions to ensure hygiene and longevity of the device. Note: The normal range for SpO2 is typically 94-100%. If the reading falls below 88% and stays below this level, or if the reading is lower than usually seen, or symptoms such as difficulty breathing occur, seek immediate medical attention. Certain circumstances can artificially alter the reading on the oximeter. Do not become alarmed if your numbers are not what you expect. Some of the factors that can change the reading of the saturation include abnormal types of hemoglobin, skin pigment, high levels of bilirubin, and recent tobacco smoking. With smoking, carboxyhemoglobin is formed. This is a temporary binding, decreases over an hour. However, if saturation is measured while smoking, the value on the screen can be falsely elevated, appear normal, by as much as 10% higher. Irregular heart rate can make it difficult for the meter to correctly report both the heart rate and at times, the saturation. Buying an oximeter; look on [employer] or other site; find an oximeter that is health grade, not sports grade. You will need 2 triple A batteries. The technology is similar in all the devices. Select one that you like. Guide on Using an Oximeter 1. Preparation: Make sure that your finger is clean and free from nail ghanaian or any false nails as these can interfere with the reading. 2. Turn on the Oximeter: Press the power button on the oximeter. Wait for it to turn on completely. Some models may require a few seconds to initialize. 3. Insert the Finger: put your finger in the rubber hole of the oximeter. Ensure the finger is pressed all the way in, with the nail side up. 4. Start the Reading: Once the finger is properly positioned, release the clip. The oximeter will start measuring. Make sure the hand still for an accurate reading. 5. Read the Display: After a few seconds, the oximeter will display the SpO2 (oxygen saturation) and pulse rate readings. The SpO2 reading is typically a percentage and the pulse rate is typically beats per minute. 6. Record the Results: Document the readings on a note pad, if you wish. 7. Turn Off the Oximeter: After recording the results, remove the finger from the device and turn off the oximeter to conserve battery life. Remember to clean the oximeter after each use following the surfacing technician's instructions to ensure hygiene and longevity of the device. Note: The normal range for SpO2 is typically 94-100%. If the reading falls below 88% and stays below this level, or if the reading is lower than usually seen, or symptoms such as difficulty breathing occur, seek immediate medical attention. Certain circumstances can artificially alter the reading on the oximeter. Do not become alarmed if your numbers are not what you expect. Some of the factors that can change the reading of the saturation include abnormal types of hemoglobin, skin pigment, high levels of bilirubin, and recent tobacco smoking. With smoking, carboxyhemoglobin is formed. This is a temporary binding, decreases over an hour. However, if saturation is measured while smoking, the value on the screen can be falsely elevated, appear normal, by as much as 10% higher. Irregular heart rate can make it difficult for the meter to correctly report both the heart rate and at times, the saturation. Subjective Date/time seen: 08/17/24 10:38 Interval history: 08/03/24, new consult; Jing Garcias is 83 years old, admitted with influenza and acute hypoxic respiratory failure. Last office visit w Dr Ramesh was 06/06/23; restrictive impairment with need for O2 2 L w exertion. She did not require a follow up appointment. She never gets a flu vaccination. She was admitted with increased shortness of breath, PCR (+) for influenza A and acute hypercapnic respiratory failure. She feels better now compared to admission. She was started on Tamiflu 75 mg p.o. q.12 hours and IV Solu-Medrol which was discontinued today. She had rapid atrial fibrillation, was treated with diltiazem. She initially required 15 liters/minute, the amount fluctuated on the initial admission date July 31, was down to 7 or 8 L a minute, now stable at 8 L for the last 2 - 3 days. 08/04/23: overall the patient tells me she has a little bit better. She is afebrile. White blood cell count 9.3. Creatinine 1.0. Patient is afebrile. CRP is 0.5. Procalcitonin 0.1. Currently she is on 7 L nasal cannula oxygen with saturations 95%. Chest x-ray today shows an enlarged left lower lobe consolidation consistent with effusion and/or atelectasis. 08/05/24: Overall the patient states she has a little bit better. She has a moist cough but is unable to bring up any phlegm. Currently she is on 7 L nasal cannula saturations 90%. She is afebrile, creatinine is 1.0. later in the day patient had worsening oxygenation requiring 13 L nasal cannula. ABG on 13 L 7.44/50/59. 08/06/2024: Patient continues to tell me she does a little bit better each day. She has a dry cough, no phlegm, no hemoptysis. Patient was in the middle of a physical therapy session and had just walked from the her bed to the door and back on 10 L nasal cannula her saturations were 98%. White blood cell count 11.7, creatinine 0.8. BNP 3090 improved from 4430. Bubble study was negative. 08/07/2024: The patient tells me she continues to improve each day. Currently she is on 8 L nasal cannula saturations 96%. She is afebrile. White blood cell count 11.3, creatinine 0.62. she performed Cornet flutter valve with me. She performed incentive spirometry at 600 mL. 08/08/2024: Patient had episode of desaturation early in the morning. She required 15 L face mask. I ordered a chest x-ray this morning which shows consolidation in the left lower lobe with no change from 08/04/2024. Today she tells me that she continues to slowly improve. Her cough and phlegm persist but are better. Her white blood cell count is 11.1, creatinine is 0.59. When I enter the room she was on 10 L nasal cannula saturations 99%. I decreased her to 6 L nasal cannula and after 6 minutes her saturations were 97%. I decreased her to 5 L and after 12 minutes her saturation was 97%. Cumulative she is positive 2.7 L since admission. Bubble study was negative. BNP 3690. 08/09/24: Patient has been stable since yesterday morning. She states she is a little better. She is debilitated but she is doing some walking. She has a dry cough. She is afebrile. Currently she is on 6 L nasal cannula saturations 92%. Patient had an overnight oximetry on 6 L with recording duration 5 hours and 21 minutes. Average saturation 92%. Low saturation 87%. Time with saturation less than or equal to 88% was 6 minutes. Oxygen desaturation index 2.3. She will finish day 10 of Tamiflu and day 7 of ceftriaxone today. 08/10/24: Patient says she improves a little bit each day. She says the cough is better. She did have nose bleeding this morning. When I enter the room she was on 7 L with saturations 97%. I decreased her to 4 L for 6 minutes and her saturations remain 96% I decreased her to 3 L and her saturations remained 95 % for 5 minutes. I placed her on room air and after 3 minutes she desaturated to 89%. I placed her back on 2 L and her saturations were 94%. Patient had an overnight oximetry on 7 L with recording duration of 6 hours and 6 minutes. Average saturation 90%. Low saturation 79%. Time with saturation less than or equal to 88% was 75 minutes. Oxygen desaturation index 1.0. Patient given 40 of Lasix yesterday and she was positive 1.6 L, cumulative she is positive 5.1 L. Her weight is 74.9 today. 08/14/24; She is sitting on side of the bed, finishing eating dinner. She had left thoracentesis today, says that she feels better after having fluid removed. No data is back from the thoracentesis yet. 08/17/24; She completed Home O2 study, needs no supplemental O2 at rest, and 3 L/min with exertion. Today is her birthday, ready to go home. DATA: 08/06/24: Summary 1. This was a bubble study only. 2. Intact interatrial septum visualized by agitated saline imaging. Negative bubble study. 08/04/24: EXAMINATION: CT diagnostic chest wo con INDICATION: Left lower lobe pneumonia versus effusion COMPARISON: 08/04/2024 portable AP chest FINDINGS: Small left pleural effusion. There is linear atelectasis or scarring of the lingula. There is more prominent left basilar lower lobe atelectasis, minimal dependent right lower lobe atelectasis. Cardiomegaly. There is extensive thoracic aortic calcification including ascending aorta, aortic arch, descending thoracic aorta. No thoracic aortic aneurysm. No hilar or mediastinal mass lesion or adenopathy. No pericardial effusion. Status post cholecystectomy. IMPRESSION: Small left pleural effusion and bilateral areas of atelectasis, most prominent at the base of the left lower lobe Cardiomegaly * MRSA swab negative, influenza A positive, all other PCR are negative, influenza B, RSV, SARS-CoV-2. * 08/03/2024 sodium 137, potassium 4.3, chloride 93, HC03 greater than 40, BUN 60, initially was 31, increased over the next 3 days there was 60, creatinine 0.7 * 07/31/24; ABG; pH 7.42, pCO2 53.3, pO2 73.4, HC03 34.1, saturation 94.8 on high-flow 8 L * 08/02/24 : Impression: Small left pleural effusion with left basilar and left perihilar airspace disease. Correlate for atelectasis/edema versus pneumonia. * 07/30/24 : Central congestive change with probable minimal bibasilar pulmonary edema/atelectatic change. 03/02/2023: This is a pulmonary function test with pre and post-bronchodilator spirometry, plethysmography and diffusing capacity.? The test was performed and results interpreted in accordance with the 2019 and 2005 ATS/ERS Task Force guidelines respectively using the Global Lung Function Initiative-2012 reference equations. Patient demonstrated good effort and cooperation. Reproducibility criteria were met. The quality of the pre bronchodilator spirometry maneuver was Grade A and post bronchodilator spirometry maneuver was Grade A.? I spoke with the noc technician and the patient required coaching to complete the spirometry and the remainder of the test the patient did well and there were no technical issues measuring the lung volumes. Findings: Spirometry:? The contour the inspiratory and expiratory flow tracing are normal.? The pre bronchodilator FVC is 1.46 L, 56% predicted.? The pre bronchodilator FEV1 is 1.03 L, 52% predicted.? The pre bronchodilator FEV1: FVC ratio 70%.? The post bronchodilator FVC is 1.31 L, representing an 11% decrease.? The post bronchodilator FEV1 is 1.00 L, representing a 3% decrease.? The post bronchodilator FEV1: FVC ratio 76%.? Plethysmography:? The total lung capacity 7.08 L, 136% predicted.? The functional residual capacity is 5.89 L, 196% predicted.? The residual volume is 5.61 L, 228% predicted.? Diffusing capacity:? The diffusing capacity unadjusted for hemoglobin and carboxyhemoglobin is 12.5, 63% predicted.? The diffusing capacity adjusted for alveolar volume is 5.71, 140% predicted.? In comparison to previous pulmonary function testing on 03/23/2021 the post bronchodilator FVC is unchanged from 1.51 L to 1.31 L.? The post bronchodilator FEV1 is decreased from 1.18 L to 1.00 L.? The total lung capacity has increased from 3.44 L to 7.08 L.? The functional residual capacity is increased from 2.16 L to 5.89 L.? The residual volume has increased from 1.90 L to 5.61 L.? The diffusing capacity unadjusted for hemoglobin and carboxyhemoglobin is unchanged from 12.3 to 12.5.? The diffusing capacity adjusted for alveolar volume is unchanged from 5.26 to 5.71. Impression: The spirometry is normal without evidence of an obstructive abnormality. The lung volumes are increased without evidence of a restrictive abnormality. ? The FVC and FEV1 are moderately severely decreased without an obstructive or restrictive abnormality.? This is an abnormal but nonspecific finding.? There is no significant improvement after inhaling a single dose of albuterol.? The total lung capacity, functional residual capacity and residual volume are increased with an increased residual volume: TLC ratio.? This is consistent with hyperinflation. The diffusing capacity unadjusted for hemoglobin and carboxyhemoglobin is mildly decreased and increased when adjusted for alveolar volume.? In comparison to previous pulmonary function testing on 03/23/2021 there has been a greater than anticipated time dependent increase in the total lung capacity, residual volume and functional residual capacity with a greater than anticipated time dependent decrease in the FEV1 with no significant change in the FVC or diffusing capacity.? Clinical correlation is recommended. 03/02/23: The patient has no obstructive abnormality and no restrictive abnormality with hyperinflation that has increased since 03/23/2021. This is a 6 minute walk test using walking aid. Resting room air oxygen saturation measured by pulse oximetry was 94% and heart rate was 64 bpm.? Patient ambulated for 122 meters and oxygen saturation remained 90 to 93%.? Heart rate at the end of the study was 88 bpm. The patient did not qualify for supplemental oxygen at rest or with ambulation. 02/16/2023: Overnight oximetry on 2 L nasal cannula. Recording duration was 1 hour and 34 minutes basal saturation 93.4%. High saturation 98%. Low saturation 89%. Time with saturation less than or equal to 88% was 0 minutes. Oxygen desaturation index is 10. Continue 2 L nasal cannula at night. 02/02/2023:? This is a follow-up encounter from 10/28/2021 for MAHER and nocturnal hypoxemia. On 10/28/2021:? Patient with MAHER and nocturnal hypoxemia. She is a nonsmoker with no occupational exposures. Patient has no rest SOB and she also requires no oxygen at rest but 2 L with ambulation per home O2 assessment on 03/23/2021. She has a moderately severe restrictive abnormality with a total lung capacity of 67% predicted. She has a CT scan of the chest that demonstrates severe thoracic spondylosis and some kyphosis with no emphysematous or interstitial lung disease. I believed her MAHER and hypoxemia is related to her restrictive lung disease with evidence of kyphosis on her CT scan but no evidence of interstitial lung disease. I suspect there also is a component of deconditioning for her MAHER. Patient has minimal respiratory limitations in her activities of daily living at this time and is currently walking 3/4 to 1 mile 5 days a week and this takes her 45 minutes without oxygen. She has pleased with this progress. Portable oxygen concentrator process was initiated. At this time there is no specific pulmonary follow-up needed. Please refer the patient to us should she have any new issues. 08/11/2022:? Cardiology outpatient visit states some SOB but able to walk outside 1/4 mi or so with only stopping once.? Thinks she might need to see pulmonary again.? Wears O2 at night and naps. 12/15/2022:? Cardiology, Dr. Vazquez, she is still SOB with stairs, ADLs like running vacuum about the same from last visit.? O2 saturation 92% room air at rest.? Complaints of SOB stable.? She does not appear to be in decompensated heart failure.? At rest 93% on room air after 1 lap = 95%.? Two laps = 90%, 3 laps = 90%.? Patient does not qualify for supplemental oxygen with ambulation although she is mildly hypoxic.? I have strongly encouraged her to contact her grab operator again to be seen as soon as possible for further recommendations and management in this regard. This appears to be the explanation of her symptoms in the absence of decompensated heart failure.? Her echo is not suggestive of significant valvular heart disease.? Her AFib is persistent with a reasonably controlled ventricular response.? Patient verbalized understanding. DATA: EXAMINATION:CT diagnostic chest wo con DATE: 04/03/2021 12:41 INDICATION: Other disorders of lung. COMPARISON: Chest CT 03/20/2019, 06/18/2016 FINDINGS: There is mild emphysema. There is mild bronchiectasis in right middle lobe and lingula. A calcified right lung nodule and calcified right hilar and mediastinal lymph nodes are consistent with old granulomatous disease. There is mild atelectasis in the inferior lungs. There is an 8 mm nodule in right lower lobe without change, likely benign. No pleural effusion. The heart size is normal. There are coronary artery calcifications. No pericardial effusion. Calcifications in the spleen are consistent with old granulomatous disease. There are changes of cholecystectomy. 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 There is lucency around the glenoid component with subsidence, consistent with loosening. There is severe thoracic spondylosis. There are changes of vertebroplasty at L1. IMPRESSION: 1. Mild emphysema. 2. 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 03/23/21 PFTs ? This is a pulmonary function test with pre and post-bronchodilator spirometry, plethysmography and diffusing capacity. The test was performed and results interpreted in accordance with the 2019 and 2005 ATS/ERS Task Force guidelines respectively using the Global Lung Function Initiative-2012 reference equations. Patient demonstrated good effort and cooperation. Reproducibility criteria were met. The quality of the pre bronchodilator spirometry maneuver was Grade A and post bronchodilator spirometry maneuver was Grade A. Findings: Spirometry:? The contour of the expiratory flow tracing is that of a witch's hat.? The contour the inspiratory flow tracing is normal.? The pre bronchodilator FVC is 1.54 L, 54% predicted.? The pre bronchodilator FEV1 is 1.13 L, 57% predicted.? The FEV1: FVC ratio 73%.? The post bronchodilator FVC is 1.51 L, representing a 2% decrease.? The post bronchodilator FEV1 is 1.18 L, representing a 5% decrease. Plethysmography:? The total lung capacity is 3.44 L, 67% predicted.? The functional residual capacity is 2.16 L, 76% predicted.? The residual volume is 1.90 L, 87% predicted. Diffusing capacity:? The absolute diffusion capacity is 12.3, 60% predicted.? The diffusing capacity corrected for alveolar volume is 5.26, 157% predicted. Impression: There is a moderately severe restrictive ventilatory abnormality. The spirometry is normal without evidence of an obstructive abnormality. There is no significant improvement after inhaling a single dose of albuterol. The ? Absolute diffusion capacity is normal and increased when corrected for alveolar volume. There are no prior studies for comparison. 03/03/2021: Patient had an overnight oximetry on room air that demonstrated a basal saturation of 90.3%.? High saturation 98.0%.? Low saturation 76.0%.? Time with saturation less than or equal to 88% was 63.7 minutes.? I will prescribe 2 L nasal cannula oxygen at night and repeat an overnight oximetry on 2 L nasal cannula. Review of Systems Review of Systems: All systems reviewed & are unremarkable except as noted in HPI and below Exam Narrative: Alert, oriented, not in distress. She is on room air at rest, saturation is 92%. HEENT: pupils are equal, EOMI, symmetrical face; oral membranes moist NECK: Trachea is midline CHEST: Equal air entry, symmetric excursion, decreased breath sounds left base, more breath sounds on the right side CV: irregular S1S2 no m/g/r ABD : (+) bowel sounds Extremities : no clubbing, cyanosis, or edema PSYCH: normal thought and speech, gait is not tested Objective Data Vital Signs Vital Signs: Vital Signs - 24 hr 08/16/24 12:02 08/16/24 14:00 08/16/24 16:02 Temperature 36.8 C Pulse Rate 83 90 74 Respiratory Rate 20 Blood Pressure 113/60 Pulse Oximetry 92 Oxygen Delivery Oxygen Flow Rate 08/16/24 20:00 08/16/24 20:00 08/16/24 21:40 Temperature Pulse Rate 88 Respiratory Rate Blood Pressure Pulse Oximetry 92 92 Oxygen Delivery Nasal Cannula High Flow Nasal Cannula Oxygen Flow Rate 3 3 08/16/24 21:40 08/16/24 21:53 08/16/24 22:00 Temperature 36.3 C L Pulse Rate 88 81 85 Respiratory Rate 18 18 16 Blood Pressure 127/56 L Pulse Oximetry 92 Oxygen Delivery Oxygen Flow Rate 08/17/24 00:00 08/17/24 01:28 08/17/24 04:00 Temperature Pulse Rate 66 70 Respiratory Rate Blood Pressure Pulse Oximetry 92 Oxygen Delivery High Flow Therapy with Na Oxygen Flow Rate 4 08/17/24 06:00 08/17/24 09:18 08/17/24 09:18 Temperature 36.6 C Pulse Rate 70 108 H Respiratory Rate 18 18 Blood Pressure 133/70 Pulse Oximetry 90 94 Oxygen Delivery High Flow Nasal Cannula Oxygen Flow Rate 4 08/17/24 09:35 08/17/24 09:52 Temperature Pulse Rate 105 H 105 H Respiratory Rate 18 Blood Pressure Pulse Oximetry Oxygen Delivery Oxygen Flow Rate Intake/Output Intake/Output: Intake & Output 08/14/24 08/15/24 08/16/24 08/17/24 23:59 23:59 23:59 23:59 Intake Total 995 1660 595 603.3 Output Total 900 700 100 250 Balance 95 960 495 353.3 Meds/Results Medications: Active Medications Generic Name Dose Route Start Last Admin Trade Name Freq PRN Reason Stop Dose Admin Acetaminophen 650 mg 07/30/24 16:59 08/16/24 21:53 Acetaminophen 325 Mg Tablet PO 650 mg Q4H PRN Administration Mild Pain (1-3) or Fever Apixaban 5 mg 07/31/24 21:00 08/17/24 09:52 Apixaban 5 Mg Tablet PO 5 mg Q12HR PERFECTO Administration Carbidopa/Levodopa 2 tablet 07/31/24 06:00 08/17/24 05:48 Carbidopa/Levodopa 25/100 Mg Tablet BY MOUTH 2 tablet 0600,1200 PERFECTO Administration Carbidopa/Levodopa 1 tablet 07/30/24 22:55 08/16/24 21:53 Carbidopa/Levodopa 25/100 Mg Tablet BY MOUTH 1 tablet HS PERFECTO Administration Diltiazem HCl 120 mg 08/03/24 12:00 08/17/24 09:51 Diltiazem Hcl Cd 120 Mg Cap.24hr PO 120 mg QAM PERFECTO Administration Furosemide 40 mg 08/09/24 13:05 08/16/24 08:52 Furosemide Inj 40 Mg/4 Ml Vial IV PUSH 40 mg DAILY PERFECTO Administration Guaifenesin 1,200 mg 08/05/24 21:00 08/17/24 09:52 Guaifenesin 12 Hr 600 Mg Tabcr PO 1,200 mg Q12HR PERFECTO Administration Cefepime HCl 1 gm in 50 mls @ 100 mls/hr 08/12/24 16:00 08/17/24 03:40 Maxipime 1 Gm/Ns 50 Ml IVPB Infused Q12H PERFECTO Infusion Doxycycline Hyclate 100 mg in 100 mls @ 100 mls/hr 08/12/24 12:30 08/17/24 10:02 Vibramycin 100 Mg/Ns 100 Ml IVPB 0 mls/hr Q12HR PERFECTO Infusion Ipratropium [place] 0.5 mg 08/10/24 14:00 08/17/24 09:17 Ipratropium Br 0.02% Inh Soln 0.5 Mg/2.5 Ml Vial INHALATION 0.5 mg TIDRT PERFECTO Administration Ketorolac Tromethamine 15 mg 08/14/24 15:15 Ketorolac 15 Mg/Ml Vial (*[facility]) IV PUSH Q6H PRN Pain Rated 4-6 Levalbuterol HCl 1.25 mg 08/10/24 14:00 08/17/24 09:17 Levalbuterol Neb 1.25 Mg/3 Ml INHALATION 1.25 mg TIDRT PERFECTO Administration Levothyroxine Sodium 112 mcg 07/31/24 06:30 08/17/24 05:48 Levothyroxine Sodium 112 Mcg Tablet PO 112 mcg DAILY@0630 PERFECTO Administration Metoprolol Tartrate 100 mg 07/30/24 22:50 08/17/24 09:52 Metoprolol Tartrate 50 Mg Tab PO 100 mg Q12HR PERFECTO Administration Ondansetron HCl 4 mg 07/30/24 16:59 Ondansetron Inj 4 Mg/2 Ml Vial IV PUSH Q4H PRN Nausea Polyethylene Glycol 17 gm 08/01/24 14:14 08/01/24 14:26 Polyethylene Glycol 3350 17 Gm Powd.Pack PO 17 gm QAM PRN Administration Constipation Rosuvastatin Calcium 5 mg 07/31/24 09:00 08/17/24 09:52 Rosuvastatin 5 Mg Tablet BY MOUTH 5 mg DAILY PERFECTO Administration Radiology Results: ITS Impressions Chest CT 08/12/24 21:07 IMPRESSION: Large left and small right-sided pleural effusions with adjacent consolidation. Thoracentesis Ultrasound 08/14/24 14:16 IMPRESSION: 1. Successful ultrasound-guided thoracentesis yielding 300 mL of александр-colored fluid. Knee X-Ray 08/14/24 15:55 IMPRESSION: 1. 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 2. Small to moderate-sized right knee joint effusion and/or synovitis. 3. No evident acute osseous abnormality. Chest X-Ray 08/16/24 15:03 Impression: 1: Left basilar airspace disease which appears to be unchanged. Differential diagnosis includes pneumonia and/or atelectasis. 2: Small left pleural effusion. Labs Labs: Laboratory Results - last 24 hr 08/16/24 08/17/24 15:34 08:43 WBC 15.2 H 11.4 H RBC 4.68 4.96 Hgb 13.6 14.6 Hct 43.1 45.6 MCV 92.1 91.9 MCH 29.1 29.4 MCHC 31.6 L 32.0 RDW 14.5 14.5 Plt Count 161 171 MPV 11.0 H 10.8 H Immature Gran % (Auto) 0.5 0.6 H Neut % (Auto) 87.5 H 83.8 H Lymph % (Auto) 4.7 L 9.1 L [place] % (Auto) 7.0 6.3 Eos % (Auto) 0.0 0.0 Baso % (Auto) 0.3 0.2 Lymph # (Auto) 0.71 L 1.03 [place] # (Auto) 1.1 H 0.7 H Eos # (Auto) 0.0 0.0 Baso # (Auto) 0.0 0.0 Abs Immat Gran (auto) 0.08 H 0.07 H Absolute Neuts (auto) 13.3 H 9.5 H Absolute Nucleated RBC 0.000 0.000 Nucleated RBC % 0.0 0.0 Atypical Lymphocytes Present Platelet Estimate Adequate Schistocytes None seen Sodium 136 L 138 Potassium 4.0 4.0 Chloride 95 L 96 L Carbon Dioxide 37 H 35 H Anion Gap 4 7 BUN 27 H 29 H Creatinine 0.61 L 0.63 L Estim Creat Clear Calc 60 58 Estimated GFR > 60 > 60 Glucose 128 H 108 Calcium 9.0 9.5
--- NOTE | 2024-08-17 11:05 | PCNWS ---
Weekly nutritional screen. Patient is tolerating current diet with adequate intake 80-100%. No weight loss reported. No nutritional needs at this time.
--- NOTE | 2024-08-17 11:58 | HOMEO2EVAL ---
Evaluation was performed at [facility] Home Oxygen Evaluation RC: Home Oxygen (O2) Evaluation Start: 08/17/24 09:23 Freq: ONCE Status: Active Protocol: RPE Activity Type Activity Date Activity User E-sign Co-sign Detail Recorded Client Recorded Date Recorded By Document 08/17/24 10:00 [email or web address] [email or web address] 08/17/24 11:58 DJO Document 08/17/24 10:05 [email or web address] [email or web address] 08/17/24 11:58 DJO Document 08/17/24 10:10 [email or web address] [email or web address] 08/17/24 11:58 DJO Document 08/17/24 10:15 [email or web address] [email or web address] 08/17/24 11:58 DJO Document 08/17/24 10:20 [email or web address] [email or web address] 08/17/24 11:58 DJO Document 08/17/24 10:35 [email or web address] [email or web address] 08/17/24 11:58 DJO 08/17/24 08/17/24 08/17/24 10:00 10:05 10:10 Home O2 Evaluation [Oxygen] -Test Phase Resting Exercise Exercise -Oxygen Delivery Room Air Room Air Nasal Cannula -Oxygen Flow Rate (L/min) 1 [Pulse Oximetry] -Pulse Oximetry (90-100 %) 91 85 L 86 L [Pulse Rate] -Pulse Rate (60-100 beats/min) 78 88 88 [Charges] -Evaluation Charges O2 Evaluation by Pulmonary 08/17/24 08/17/24 08/17/24 10:15 10:20 10:35 Home O2 Evaluation [Oxygen] -Test Phase Exercise Exercise Resting -Oxygen Delivery Nasal Cannula Nasal Cannula Room Air -Oxygen Flow Rate (L/min) 2 3 [Pulse Oximetry] -Pulse Oximetry (90-100 %) 88 L 91 91 [Pulse Rate] -Pulse Rate (60-100 beats/min) 90 96 74 [Charges] -Evaluation Charges
--- NOTE | 2024-08-17 12:00 | PM.PNORT ---
Progress Note: A&P Assessment and Plan (1) Effusion, right knee: Code(s): M25.461 - Effusion, right knee Status: Acute (2) Arthritis of right knee: Code(s): M17.11 - Unilateral primary osteoarthritis, right knee Status: Acute Plan Knee pain continue to improve with the aspiration and steroid injection. Likely gout or pseudogout although there were no crystals seen in the aspirate. Uric acid 6.1. 83% neutrophils. No growth to date on cultures, preliminary cultures are negative for growth. May continue PT/OT. Weight bearing as tolerated with a walker. Okay to discharge from orthopedic standpoint. Patient is a long standing patient of Dr. Molina. She may follow up in office as needed. Subjective Subjective Date/Time Seen: 08/17/24 12:00 Interval history: Resting comfortably with family at bedside. Patient notes improved pain in her knee. Today is her birthday. Review of Systems Review of Systems: All systems reviewed & are unremarkable except as noted in HPI and below Exam Narrative: Alert and oriented x3. Overweight 83 y/o female. Laying comfortably in bed. No acute distress. No distal edema. No ecchymosis. Small joint effusion. Still some Warmth. No erythema. Less tender today. ROM 5-45 without pain. No varicosities. Distal pulses palpable. Normal light touch sensation. No skin lesions. Objective Data Vital Signs Vital Signs: Vital Signs - 24 hr 08/16/24 12:02 08/16/24 14:00 08/16/24 16:02 Temperature 98.3 F Pulse Rate 83 90 74 Respiratory Rate 20 Blood Pressure 113/60 Pulse Oximetry 92 Oxygen Delivery Oxygen Flow Rate 08/16/24 20:00 08/16/24 20:00 08/16/24 21:40 Temperature Pulse Rate 88 Respiratory Rate Blood Pressure Pulse Oximetry 92 92 Oxygen Delivery Nasal Cannula High Flow Nasal Cannula Oxygen Flow Rate 3 3 08/16/24 21:40 08/16/24 21:53 08/16/24 22:00 Temperature 97.3 F L Pulse Rate 88 81 85 Respiratory Rate 18 18 16 Blood Pressure 127/56 L Pulse Oximetry 92 Oxygen Delivery Oxygen Flow Rate 08/17/24 00:00 08/17/24 01:28 08/17/24 04:00 Temperature Pulse Rate 66 70 Respiratory Rate Blood Pressure Pulse Oximetry 92 Oxygen Delivery High Flow Therapy with Na Oxygen Flow Rate 4 08/17/24 06:00 08/17/24 08:00 08/17/24 08:03 Temperature 97.8 F Pulse Rate 70 97 Respiratory Rate 18 Blood Pressure 133/70 Pulse Oximetry 90 98 Oxygen Delivery Nasal Cannula Oxygen Flow Rate 4 08/17/24 09:18 08/17/24 09:18 08/17/24 09:35 Temperature Pulse Rate 108 H 105 H Respiratory Rate 18 18 Blood Pressure Pulse Oximetry 94 Oxygen Delivery High Flow Nasal Cannula Oxygen Flow Rate 4 08/17/24 09:52 08/17/24 10:00 08/17/24 10:05 Temperature Pulse Rate 105 H 78 88 Respiratory Rate Blood Pressure Pulse Oximetry 91 85 L Oxygen Delivery Room Air Room Air Oxygen Flow Rate 08/17/24 10:10 08/17/24 10:15 08/17/24 10:20 Temperature Pulse Rate 88 90 96 Respiratory Rate Blood Pressure Pulse Oximetry 86 L 88 L 91 Oxygen Delivery Nasal Cannula Nasal Cannula Nasal Cannula Oxygen Flow Rate 1 2 3 08/17/24 10:35 08/17/24 11:15 Temperature Pulse Rate 74 Respiratory Rate Blood Pressure Pulse Oximetry 91 93 Oxygen Delivery Room Air Room Air Oxygen Flow Rate Intake/Output Intake/Output: Intake & Output 08/14/24 08/15/24 08/16/24 08/17/24 23:59 23:59 23:59 23:59 Intake Total 995 1660 595 603.3 Output Total 900 700 100 250 Balance 95 960 495 353.3 Meds/Results Medications: Active Medications Generic Name Dose Route Start Last Admin Trade Name Moodyq PRN Reason Stop Dose Admin Acetaminophen 650 mg 07/30/24 16:59 08/16/24 21:53 Acetaminophen 325 Mg Tablet PO 650 mg Q4H PRN Administration Mild Pain (1-3) or Fever Apixaban 5 mg 07/31/24 21:00 08/17/24 09:52 Apixaban 5 Mg Tablet PO 5 mg Q12HR PERFECTO Administration Carbidopa/Levodopa 2 tablet 07/31/24 06:00 08/17/24 05:48 Carbidopa/Levodopa 25/100 Mg Tablet BY MOUTH 2 tablet 0600,1200 PERFECTO Administration Carbidopa/Levodopa 1 tablet 07/30/24 22:55 08/16/24 21:53 Carbidopa/Levodopa 25/100 Mg Tablet BY MOUTH 1 tablet HS PERFECTO Administration Diltiazem HCl 120 mg 08/03/24 12:00 08/17/24 09:51 Diltiazem Hcl Cd 120 Mg Cap.24hr PO 120 mg QAM PERFECTO Administration Furosemide 40 mg 08/09/24 13:05 08/17/24 09:52 Furosemide Inj 40 Mg/4 Ml Vial IV PUSH Not Given DAILY PERFECTO Guaifenesin 1,200 mg 08/05/24 21:00 08/17/24 09:52 Guaifenesin 12 Hr 600 Mg Tabcr PO 1,200 mg Q12HR PERFECTO Administration Cefepime HCl 1 gm in 50 mls @ 100 mls/hr 08/12/24 16:00 08/17/24 03:40 Maxipime 1 Gm/Ns 50 Ml IVPB Infused Q12H PERFECTO Infusion Doxycycline Hyclate 100 mg in 100 mls @ 100 mls/hr 08/12/24 12:30 08/17/24 10:02 Vibramycin 100 Mg/Ns 100 Ml IVPB 0 mls/hr Q12HR PERFECTO Infusion Ipratropium [place] 0.5 mg 08/10/24 14:00 08/17/24 09:17 Ipratropium Br 0.02% Inh Soln 0.5 Mg/2.5 Ml Vial INHALATION 0.5 mg TIDRT [facility] Administration Ketorolac Tromethamine 15 mg 08/14/24 15:15 Ketorolac 15 Mg/Ml Vial (*[facility]) IV PUSH Q6H PRN Pain Rated 4-6 Levalbuterol HCl 1.25 mg 08/10/24 14:00 08/17/24 09:17 Levalbuterol Neb 1.25 Mg/3 Ml INHALATION 1.25 mg TIDRT PERFECTO Administration Levothyroxine Sodium 112 mcg 07/31/24 06:30 08/17/24 05:48 Levothyroxine Sodium 112 Mcg Tablet PO 112 mcg DAILY@0630 [facility] Administration Metoprolol Tartrate 100 mg 07/30/24 22:50 08/17/24 09:52 Metoprolol Tartrate 50 Mg Tab PO 100 mg Q12HR PERFECTO Administration Ondansetron HCl 4 mg 07/30/24 16:59 Ondansetron Inj 4 Mg/2 Ml Vial IV PUSH Q4H PRN Nausea Polyethylene Glycol 17 gm 08/01/24 14:14 08/01/24 14:26 Polyethylene Glycol 3350 17 Gm Powd.Pack PO 17 gm QAM PRN Administration Constipation Rosuvastatin Calcium 5 mg 07/31/24 09:00 08/17/24 09:52 Rosuvastatin 5 Mg Tablet BY MOUTH 5 mg DAILY PERFECTO Administration Radiology Results: ITS Impressions Chest CT 08/12/24 21:07 IMPRESSION: Large left and small right-sided pleural effusions with adjacent consolidation. Thoracentesis Ultrasound 08/14/24 14:16 IMPRESSION: 1. Successful ultrasound-guided thoracentesis yielding 300 mL of александр-colored fluid. Knee X-Ray 08/14/24 15:55 IMPRESSION: 1. 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 2. Small to moderate-sized right knee joint effusion and/or synovitis. 3. No evident acute osseous abnormality. Chest X-Ray 08/16/24 15:03 Impression: 1: Left basilar airspace disease which appears to be unchanged. Differential diagnosis includes pneumonia and/or atelectasis. 2: Small left pleural effusion. Labs Labs: Laboratory Results - last 24 hr 08/16/24 08/17/24 15:34 08:43 WBC 15.2 H 11.4 H RBC 4.68 4.96 Hgb 13.6 14.6 Hct 43.1 45.6 MCV 92.1 91.9 MCH 29.1 29.4 MCHC 31.6 L 32.0 RDW 14.5 14.5 Plt Count 161 171 MPV 11.0 H 10.8 H Immature Gran % (Auto) 0.5 0.6 H Neut % (Auto) 87.5 H 83.8 H Lymph % (Auto) 4.7 L 9.1 L [place] % (Auto) 7.0 6.3 Eos % (Auto) 0.0 0.0 Baso % (Auto) 0.3 0.2 Lymph # (Auto) 0.71 L 1.03 [place] # (Auto) 1.1 H 0.7 H Eos # (Auto) 0.0 0.0 Baso # (Auto) 0.0 0.0 Abs Immat Gran (auto) 0.08 H 0.07 H Absolute Neuts (auto) 13.3 H 9.5 H Absolute Nucleated RBC 0.000 0.000 Nucleated RBC % 0.0 0.0 Atypical Lymphocytes Present Platelet Estimate Adequate Schistocytes None seen Sodium 136 L 138 Potassium 4.0 4.0 Chloride 95 L 96 L Carbon Dioxide 37 H 35 H Anion Gap 4 7 BUN 27 H 29 H Creatinine 0.61 L 0.63 L Estim Creat Clear Calc 60 58 Estimated GFR > 60 > 60 Glucose 128 H 108 Calcium 9.0 9.5
--- NOTE | 2024-08-17 16:44 | PCRCNOTE ---
Window of time for administration has passed. See next scheduled administration.
--- NOTE | 2024-08-20 10:18 | PCRCNOTE ---
Faxed chart notes per request from [facility]. Vicky at [facility] stated they were unable to set up because they had not received the face to face chart notes.
== END 2024-08-17 17:31 | disposition home health service (06) | DRG 193 ==
LOC: ANHED 17:24 → ANH3MEDSUR 18:48
PROVIDERS: Internal Medicine; Internal Medicine Pulmonary Disease; Physician Assistant Surgical; Admitting Provider Internal Medicine; Emergency Provider Emergency Medicine; PCP Nurse Practitioner Family; Visit Provider Hospitalist
DX: J10.1 Influenza due to other identified influenza virus with other respiratory manifestations (principal); J96.21 Acute and chronic respiratory failure with hypoxia; J90 Pleural effusion, not elsewhere classified; J18.9 Pneumonia, unspecified organism; I11.0 Hypertensive heart disease with heart failure; I50.9 Heart failure, unspecified; I48.91 Unspecified atrial fibrillation; G20.A1 Parkinson's 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, without mention of fluctuations; E78.5 Hyperlipidemia, unspecified; M25.461 Effusion, right knee; M17.11 Unilateral primary osteoarthritis, right knee; G47.33 Obstructive sleep apnea (adult) (pediatric); Z20.822 Contact with and (suspected) exposure to COVID-19
CPT/HCPCS: 32555; 36415; 36600; 71045; 71046; 71250; 73560; 80048; 80053; 80069; 82375; 82550; 82565; 82805; 82948; 83050; 83605; 83735; 83880; 84100; 84145; 84550; 85018; 85025; 85027; 85049; 85610; 85730; 86140; 87040; 87070; 87075; 87186; 87205; 87635; 87637; 87641; 88108; 88305; 89051; 89060; 92610; 93005; 93306; 93308; 94002; 94618; 94640; 94667; 94668; 94762; 96374; 96375; 97110; 97116; 97161; 97162; 97165; 97530; 97535; 99285; A9270; G0378; J0692; J0696; J1010; J1120; J1160; J1940; J2270; J2919; J3370

== ENCOUNTER 2024-10-11 08:31 | Outpatient (CLI) | payer OTHER, SELFPAY ==
[2024-10-11 08:30] VITALS: PULSE 81; O2SAT 93
[2024-10-11 08:35] VITALS: PULSE 106; O2SAT 90
[2024-10-11 08:40] VITALS: PULSE 88; O2SAT 94
--- NOTE | 2024-10-11 10:10 | PCRCNOTE ---
Home O2 eval faxed to office staff
--- NOTE | 2024-10-11 10:11 | HOMEO2EVAL ---
Evaluation was performed at [facility] Home Oxygen Evaluation RC: Home Oxygen (O2) Evaluation Start: 10/11/24 10:08 Freq: Status: Active Protocol: RPE Activity Type Activity Date Activity User E-sign Co-sign Detail Recorded Client Recorded Date Recorded By Document 10/11/24 08:30 KEELEY [email or web address] 10/11/24 10:10 KEELEY Document 10/11/24 08:35 KEELEY [email or web address] 10/11/24 10:10 KEELEY Document 10/11/24 08:40 KEELEY [email or web address] 10/11/24 10:10 KEELEY 10/11/24 10/11/24 10/11/24 08:30 08:35 08:40 Home O2 Evaluation [Oxygen] -Test Phase Resting Exercise Resting -Oxygen Delivery Room Air Room Air Room Air [Pulse Oximetry] -Pulse Oximetry (90-100 %) 93 90 94 [Pulse Rate] -Pulse Rate (60-100 beats/min) 81 106 H 88 [Exercise] -Ambulation Distance (feet) 600 -Ambulation Distance (meters) 182.87 [Comments] -Home Oxygen Evaluation Comments No home O2 needed at this time. [Charges] -Evaluation Charges O2 Evaluation by Pulmonary
== END 2024-10-11 08:32 | disposition home or self-care (01) ==
PROVIDERS: PCP Nurse Practitioner Family; Visit Provider Internal Medicine Pulmonary Disease
DX: R09.02 Hypoxemia (principal)
CPT/HCPCS: 94618

== ENCOUNTER 2024-11-02 09:26 | Outpatient (CLI) | payer OTHER, SELFPAY ==
--- OUTSIDE RECORDS SUMMARY | 2024-11-02 09:34 | XMS_ITS | Referral Summary ---
Author Organization [facility] B Address [address] [place] [address] Care Team Providers Care Biometric Technician Name Role Phone Raymon Ramirez MD Primary Care Provider [phone] Encounters Date Type Department Care Team Description 10/22/2024 10:45 AM CDT Office Visit [facility] Cardiology [address] [place] [address] Claudette Salinas MD Longstanding persistent atrial fibrillation (HCC) (Primary Dx); Primary hypertension; Chronic anticoagulation; ERNESTO (obstructive sleep apnea) 2024 Orders Only [facility] Medical [facility] Cardiology [address] [facility] [address] [place] [address] Lynn Sanchez NP from Last 3 Months Allergies No known active allergies Medications cholecalciferol (cholecalciferol ) 1,000 unit tablet 0 0 11/26/19 16 Active Additional Information Patient not taking.Reported on 10/22/2024 carbidopa-levodo pa (SINEMET) 25-100 mg per tablet Take 2 tablets at 6 a.m. and noon, 1 tablet at 6 p.m. 450 tablet 1 02/24/20 18 Active rosuvastatin (CRESTOR) 5 mg tablet Take 1 tablet (5 mg total) by mouth daily 08/20/19 22 Active cyanocobalamin (Vitamin B-12) 500 mcg tabletIndication s:Prevention of Vitamin B12 Deficiency Take 1 tablet (500 mcg total) by mouth daily Active levothyroxine (SYNTHROID) 112 mcg tablet Take 1 tablet (112 mcg total) by mouth daily 12/04/19 22 Active ascorbic acid 500 mg tablet 02/05/20 22 Active acyclovir (ZOVIRAX) 800 mg tablet Take 1 tablet (800 mg total) by mouth daily 04/06/20 22 Active ofloxacin (OCUFLOX) 0.3 % ophthalmic solution INSTILL 1 DROP INTO LEFT EYE EVERY HOUR DIRECTED 04/02/20 22 Active neomycin-polymyx in-dexAMETHasone (MAXITROL) 3.5mg/mL-10,000 unit/mL-0.1 % ophthalmic suspension INSTILL 1 DROP INTO LEFT EYE TWICE A DAY 04/16/20 22 Active metoprolol (LOPRESSOR) 100 mg tablet Take 1 tablet (100 mg total) by mouth 2 (two) times a day 120 tablet 2 07/20/20 24 Active amLODIPine (NORVASC) 5 mg tabletIndication s:Primary hypertension TAKE 1 TABLET (5 MG TOTAL) BY MOUTH DAILY. 90 tablet 1 09/20/19 25 026 Active furosemide (LASIX) 40 mg tablet Take 1 tablet (40 mg total) by mouth daily 09/24/19 25 Active apixaban (ELIQUIS) 2.5 mg tablet Take 1 tablet (2.5 mg total) by mouth 2 (two) times a day Active erythromycin (ILOTYCIN) ophthalmic ointment APPLY A SMALL AMOUNT INTO BOTH EYES AT BEDTIME 04/01/20 22 025 Discontin ued(Thera py completed ) apixaban (Eliquis) 5 mg tablet TAKE 1 TABLET BY MOUTH TWICE A DAY 180 tablet 3 12/05/19 24 025 Discontin ued(Patie nt Reported) Active Problems Problem Noted Date Diagnosed Date Chronic fatigue 10/24/2023 Epistaxis 04/19/2023 Shortness of breath 12/15/2022 Longstanding persistent atrial fibrillation 12/30 ERNESTO (obstructive sleep apnea) 01/14/2022 Primary hypertension 01/14/2022 Chronic anticoagulation 01/14/2022 Osteoarthritis of knee 03/26/2016 Overview (11/05/2016): Primary osteoarthritis of left knee Parkinson's disease 02/19/2014 Overview (11/05/2016): Parkinson disease Social History Tobacco Use Types Packs/Day Years Used Date Smoking Tobacco: Never Smokeless Tobacco: Never Tobacco Cessation:Counseling Given: Not Answered Alcohol Use Standard Drinks/Week Comments Yes 0 (1 standard drink = 0.6 oz pur e alcohol) Comments Unknown Sex and Gender Information Value Date Recorded Sex Assigned at Not on file 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 Gender Identity Not on file Sexual Orientation Not on file Last Filed Vital Signs Vital Sign Reading Time Taken Comments Blood Pressure 138/80 10/22/2024 9:42 AM CDT Pulse 74 10/22/2024 9:42 AM CDT Temperature - - Respiratory Rate 16 02/23/2018 9:09 AM CDT Oxygen Saturation 98% 10/22/2024 9:42 AM CDT Inhaled Oxygen Concentration - - Weight 71.8 kg (158 lb 3.2 oz) 10/22/2024 9:42 A M CDT Height 162.6 cm (5' 4 ) 10/22/2024 9:42 AM CDT Body Mass Index 27.15 10/22/2024 9:42 AM CDT Plan of Treatment Not on file Insurance [facility] [address] [address] [id number] [facility] Care Teams Biometric Technician Relationship Specialty Start Date End Date Raymon Ramirez MD PCP - General Family Practice 04/19/23
--- OUTSIDE RECORDS SUMMARY | 2024-11-02 09:34 | XMS_ITS | Clinical Summary ---
Author Organization [facility] Address [address] [facility] [address] Care Team Providers Care Hydraulic Rockbreaker Operator Name Role Phone Raymon Ramirez MD Primary Care Provider [phone] Allergies No known active allergies Medications cholecalciferol [...] Parkinson's disease 02/19/2014 Overview (11/05/2016): Parkinson disease Encounters Date Type Department Care Team Description 10/22/2024 10:45 AM CDT Office Visit [facility] Cardiology [address] [place] [address] Claudette Salinas MD Longstanding persistent atrial fibrillation (HCC) (Primary Dx); Primary hypertension; Chronic anticoagulation; ERNESTO (obstructive sleep apnea) 2024 Orders Only [facility] Cardiology [address] [place] [address] Lynn Sanchez NP from Last 3 Months Surgical History Surgery Date Site/Laterality Comments SHOULDER ARTHROPLASTY Left Medical History Medical History Date Comments Hx Other Medical arthritis Hx Other Medical 2011 cataracts Hx Other Medical chicken pox Hx Other Medical fractures Hx Other Medical hihg cholestero l Hypertension Hypertension Hx Other Medical measles mumps Hx Other Medical 2010 right shoulder joint Hx Other Medical 1989 hysterectomy Hx Other Medical 2011 left arm fractu re Hx Other Medical 2009 benign tumor fr om back Hx Other Medical 2011 eye lid surg A-fib (HCC) Family History Medical History Relation Name Comments Stroke Father Stroke; Cause o f : Stroke Stroke Mother Stroke; Relation Name Status Comments Father Mother Social History Tobacco Use Types Packs/Day Years Used Date Smoking Tobacco: Never Smokeless Tobacco: Never Tobacco Cessation:Counseling Given: Not Answered Alcohol Use Standard Drinks/Week Comments Yes 0 (1 standard drink = 0.6 oz pur e alcohol) Comments Unknown Sex and Gender Information Value Date Recorded Sex Assigned at Not on file 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 Care Teams Hydraulic Rockbreaker Operator Relationship Specialty Start Date End Date Raymon Ramirez MD PCP - General Family Practice 04/19/23
--- OUTSIDE RECORDS SUMMARY | 2024-11-02 09:34 | XMS_ITS | Clinical Summary ---
Author Organization [facility] Address [address] [facility] [place] [address] Care Team Providers Care Adhesive Bonding Machine Operator Name Role Phone Blayne Cordoba MD Unavailable [phone] Helder Gray MD Primary Care Provider [phone] Source Comments [facility],non-owned Affiliates and Associated Physician Practices is amultiple site organization consisting of ambulatory clinics and hospital sitesin [place], [place], [place] and [place]. This disclosure is being madepursuant to the Care Everywhere program and may not contain all information available regarding this patient. Last updated 18.[facility] Allergies No known active allergies Medications * Be aware that medications may not be up to date on this document. Alwaysverify current medications with the patient. Medication Sig Dispensed Refills Start Date End Date Status carbidopa-levodopa (SINEMET) 25-100 MG tablet Take by mouth 3 times daily 2 tabs in am/ 1 at noon/ 1 at dinner Active levothyroxine (TIROSINT) 125 MCG capsule Take 125 mcg by mouth daily before breakfast Active hydrochlorothiazide (HYDRODIURIL) 25 MG tablet Take 25 mg by mouth once daily Active metoprolol tartrate (LOPRESSOR) 100 MG tablet Take 100 mg by mouth 2 times daily Active amLODIPine (NORVASC) 10 MG tablet TK 1 T PO D 3 04/10/2016 Active azelastine (ASTELIN) 0.1 % nasal spray INSTIL 1 SPRAY INTO EACH NOSTRIL EVERY 12 HOURS 10/15/2021 Active fluticasone propionate (FLONASE) 50 MCG/ACT nasal spray INSTILL 1-2 SPRAYS INTO EACH NOSTRIL TWICE DAILY 09/14/2021 Active HYDROcodone-acetamin ophen (NORCO) 5-325 MG tablet TAKE 1 TABLET BY MOUTH TWICE A DAY NEEDED FOR PAIN 01/29/2021 Active oxyCODONE-acetaminop hen (PERCOCET) 5-325 MG tablet TAZKE 1-2 TABS BY MOUTH EVERY 4-6 HOURS NEEDED FOR PAIN 09/22/2021 Active predniSONE (DELTASONE) 20 MG tablet Take 40 mg by mouth once daily 11/23/2021 Active trimethoprim-polymyx in B (POLYTRIM) 80302-3.1 UNIT/ML-% ophthalmic solution 11/24/2021 Activ e XARELTO 20 MG tablet Take 20 mg by mouth once daily 10/14/2021 Active rosuvastatin (CRESTOR) 5 MG tablet Take 5 mg by mouth once daily 11/17/2021 Active moxifloxacin (VIGAMOX) 0.5 % ophthalmic solutionIndications: Corneal ulcer of left eye Instill 1 (one) drop into left eye every 2 hours 3 mL 2 12/04/2021 Active Ascorbic Acid ([facility] VITAMIN C) 500 MG TABSIndications:[place] eal ulcer of left eye TAKE 1 (ONE) TABLET BY MOUTH 2 TIMES DAILY FOR 30 DAYS 60 tablet 02/04/2022 Active Active Problems Problem Noted Date Diagnosed Date 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 Osteoarthritis of knee 03/26/2016 Overview (11/27/2021): Primary osteoarthritis of left knee Primary osteoarthritis of left knee Parkinson's disease 01/16/2016 Family History Medical History Relation Name Comments CVA Father CVA Mother Relation Name Status Comments Father Mother Social History Tobacco Use Types Packs/Day Years Used Date Smoking Tobacco: Never Smokeless Tobacco: Never Alcohol Use Standard Drinks/Week Comments Yes 0 (1 standard drink = 0.6 oz pur e alcohol) Sex and Gender Information Value Date Recorded Sex Assigned at Not on file Gender Identity Not on file Sexual Orientation Not on file Last Filed Vital Signs Vital Sign Reading Time Taken Comments Blood Pressure 140/61 06/04/2016 12:01 PM CDT Pulse 78 06/04/2016 12:01 PM CDT Temperature 36.6 C (97.9 F) 06/04/2016 12:01 PM CDT Respiratory Rate 20 06/04/2016 12:01 PM CDT Oxygen Saturation 91% 06/04/2016 12:01 PM CDT Inhaled Oxygen Concentration - - Weight 86.6 kg (191 lb) 05/31/2016 8:50 AM CDT Height 162.6 cm (5' 4 ) 05/31/2016 8:50 AM CDT Body Mass Index 32.79 05/31/2016 8:50 AM CDT Plan of Treatment Health Maintenance Due Date Last Done Comments BONE DENSITY TESTING 1940 MEDICARE AWV 12 MONTHS 1941 DTAP/TDAP/TD VACCINES (1 - Tdap) 1960 PNEUMOCOCCAL VACCINE 50+ (1 of 1 - PCV) 1991 ZOSTER VACCINE (1 of 2) 1991 Respiratory Syncytial Virus (RSV) Vaccine Pt: or over 60 yrs (1 - 1-dose 75+ series) 2016 COVID-19 VACCINE ( - 2023-2 5 season) 2024 INFLUENZA VACCINE (#1) 2024 DEPRESSION SCREENING 08/01/2024 MEDICARE AWV CALENDAR YEAR 2024 HEPATITIS B VACCINE Aged Out No longe r eligible based on patient's age to complete this topic HIB VACCINE Aged Out No longer eligi ble based on patient's age to complete this topic HPV VACCINE Aged Out No longer eligi ble based on patient's age to complete this topic MENINGOCOCCAL (Group B) VACC INE SHARED DECISION-MAKING Aged Out No longer eligibl e based on patient's age to complete this topic MENINGOCOCCAL GROUPS A/C/Y/W VACCINE Aged Out No longer eligible b ased on patient's age to complete this topic Medical Devices Implanted Type Area Framing Manager Device Identifier Shelf Expiration Date Model / Serial / Lot Cmnt Bone Co Hv 40gm Implanted:Qty: 1 on 05/31/2016 by Blayne Cordoba MD at [facility] Left: Knee [employer] [id number] 09/28/2017 [id number] / / [id number] Cmpnt Fem Kn Lt Cr Cmnt Prm Vngrd Intlk Implanted:Qty: 1 on 05/31/2016 by Blayne Cordoba MD at [facility] Left: Knee [employer] [id number] 07/04/2025 [id number] / / [id number] Tray Tib 71mm Kn Cocr I Beam Implanted:Qty: 1 on 05/31/2016 by Blayne Cordoba MD at [facility] Left: Knee [employer] [id number] 12/17/2025 [id number] / / [id number] Cmpnt Ptlr 28mm 1 Pg Wire Ascnt Arcm Kn Implanted:Qty: 1 on 05/31/2016 by Blayne Cordoba MD at [facility] Left: Knee [employer] [id number] 03/25/2021 [id number] / / [id number] Brng [id number] Vngrd Arcm Kn Ant Stab Implanted:Qty: 1 on 05/31/2016 by Blayne Cordoba MD at [facility] Left: Knee [employer] [id number] 03/10/2021 [id number] / / [id number] Advance Directives * Full Code (Latest Code Status on File) Date Activated Date Inactivated Comments 05/31/2016 1:59 PM 06/04/2016 3:53 PM Care Teams Adhesive Bonding Machine Operator Relationship Specialty Start Date End Date Helder Gray MD [address] [place] [id number] PCP - General Internal Medicine 10/09/21 [place] [id number] [address] Orthopedic Surgery 01/16/16
--- OUTSIDE RECORDS SUMMARY | 2024-11-02 09:34 | XMS_ITS | Clinical Summary ---
Author Organization [facility] Laly Collado Address [address] [address] Care Team Providers Care Medical Laboratory Manager Name Role Phone Raymon Ramirez MD Primary Care Provider [phone] Allergies No known active allergies Medications apixaban (Eliquis) 5 mg tablet Take 5 mg by mouth 2 times daily. 12/05/2023 Active carbidopa-levodo pa (SINEMET) 25-100 mg tablet Take 1 Tablet by mouth. Active cyanocobalamin (VITAMIN B-12) 500 mcg tablet Take 1,000 mcg by mouth daily. Active levothyroxine 112 mcg tablet Take 112 mcg by mouth daily. 12/03/2021 Active metoprolol tartrate (LOPRESSOR) 100 mg tablet Take 100 mg by mouth 2 times daily. 08/20/2021 Active rosuvastatin (CRESTOR) 5 mg tablet Take 5 mg by mouth daily. 08/20/2021 Active Active Problems No known active problems Encounters Date Type Department Care Team Description 09/18/2024 External Device Data ST[facility] ABSTRACTION Provider, Abstract 08/28/2024 External Device Data [facility] ABSTRACTION Provider, Abstract 08/22/2024 External Device Data [facility] ABSTRACTION Provider, Abstract 08/21/2024 External Device Data ST[facility] ABSTRACTION Provider, Abstract from Last 3 Months Family History Medical History Relation Name Comments No Known Problems Brother No Known Problems Child 1 No Known Problems Child 2 Breast Cancer Mother No Known Problems Sister 1 No Known Problems Sister 2 Relation Name Status Comments Brother Alive Child 1 Alive Child 2 Alive Father Mother Sister 1 Alive Sister 2 Social History Tobacco Use Types Packs/Day Years Used Date Smoking Tobacco: Never Smokeless Tobacco: Never Alcohol Use Standard Drinks/Week Comments Not Currently 0 (1 standard drink = 0.6 oz pur e alcohol) socially once a year Comments Unknown Sex and Gender Information Value Date Recorded Sex Assigned at Not on file Legal Sex Female 2:51 PM CDT Gender Identity Not on file Sexual Orientation Not on file Last Filed Vital Signs Vital Sign Reading Time Taken Comments Blood Pressure 156/86 04/25/2024 11:03 AM CDT Pulse 83 04/25/2024 10:58 AM CDT Temperature 36.1 C (96.9 F) 04/25/2024 10:58 AM CDT Respiratory Rate 16 04/25/2024 10:58 AM CDT Oxygen Saturation 90% 04/25/2024 10:58 AM CDT Inhaled Oxygen Concentration - - Weight 76.8 kg (169 lb 6.4 oz) 04/25/2024 10:58 AM CDT Height 162.6 cm (5' 4 ) 01/19/2024 10:16 AM CDT Body Mass Index 29.08 01/19/2024 10:16 AM CDT Plan of Treatment Health Maintenance Due Date Last Done Comments DTAP/TDAP/TD VACCINES (1 - Tdap) 1960 PNEUMOCOCCAL VACCINE 50+ YEARS (1 of 1 - PCV) 08/17/18 92 ZOSTER VACCINE (1 of 2) 1991 OSTEOPOROSIS SCREENING 2006 RSV VACCINE (60+ or ) (1 - 1-dose 75+ series) 2016 INFLUENZA VACCINE (#1) 2024 [place] ([place]) Prev entative Visit/Annual Wellness Visit 08/01/2024 Insurance [facility] M[facility] Care Teams Medical Laboratory Manager Relationship Specialty Start Date End Date Raymon Raimrez MD [address] [place] [phone] PCP - General Family Practice 01/02/24
--- OUTSIDE RECORDS SUMMARY | 2024-11-02 09:34 | XMS_ITS | Encounter Summary ---
Author Organization [facility] Address [address] [place] [address] Care Team Providers Care Can Technician Name Role Phone Blayne Cordoba MD Unavailable [phone] Helder Gray MD Primary Care Provider [phone] Reason for Visit * Reason Comments Refill Request Encounter Details Date Type Department Care Team (Late st Contact Info) Description 03/06/2022 Refill [facility] [place] [address] Starla Pena MD No info available Refill Request Social History Tobacco Use Types Packs/Day Years Used Date Smoking Tobacco: Never Smokeless Tobacco: Never Alcohol Use Standard Drinks/Week Comments Yes 0 (1 standard drink = 0.6 oz pur e alcohol) Sex and Gender Information Value Date Recorded Sex Assigned at Not on file Gender Identity Not on file Sexual Orientation Not on file documented as of this encounter Functional Status Functional Status Response Date of Assess ment Is person deaf or have serious hearing difficult y? No 05/31/2016 Is person blind or have serious difficulty seein g? No 05/31/2016 Does person have serious dif ficulty walking/climbing stairs? Yes 05/31/2016 Does person have difficulty dressing/bathing? No 05/31/2016 Does person have difficulty doing errands alone? No 05/31/2016 Cognitive Status Response Date of Assessm ent Does person have difficulty concentrating/remembering/making decisions? No 05/31/2016 documented as of this encounter Plan of Treatment Not on file documented as of this encounter Visit Diagnoses Diagnosis Corneal ulcer of left eye Corneal ulcer, unspecified documented in this encounter Care Teams Can Technician Relationship Specialty Start Date End Date Helder Gray MD [address] [place] [address] PCP - General Internal Medicine 10/09/21 [place] [address] [address] [address] Orthopedic Surgery 01/16/16 documented as of this encounter
--- OUTSIDE RECORDS SUMMARY | 2024-11-02 09:34 | XMS_ITS | Encounter Summary ---
Author Organization [facility] Address [address] [facility] [place] [address] Care Team Providers Care Youth Advocate Name Role Phone Blayne Cordoba MD Unavailable [phone] Helder Gray MD Primary Care Provider [phone] Reason for Visit * Reason Onset Date Comments MEDICATION REFILL 03/22/2022 Encounter Details Date Type Department Care Team (Late st Contact Info) Description 03/22/2022 Refill [facility] [address] [place] [phone] Benito Marquez MD [address] [place] [address] [place] [address] MEDICATION REFILL Social History Tobacco Use Types Packs/Day Years [...] unspecified documented in this encounter Care Teams Youth Advocate Relationship Specialty Start Date End Date Helder Gray MD [address] [place] [address] PCP - General Internal Medicine 10/09/21 [place] [address] [address] Orthopedic Surgery 01/16/16 documented as of this encounter
[2024-11-02 09:42] LABS: Basophils Percent Auto 0.3 % (0.2-1.2); Hematocrit 50.2 % (37.0-47.0); Hemoglobin 16.1 g/dL (12.0-15.0); Immature Granulocyte Absolute 0.04 K/mm3 (0.00-0.031); Immature Granulocyte Percent A 0.4 % (0-0.5); Lymphocytes Absolute Auto 1.03 K/mm3 (0.9-3.2); Lymphocytes Percent Auto 10.7 % (18.3-44.2); Mean Corpuscular HGB Conc 32.1 g/dl (32-36); Mean Corpuscular Hemoglobin 29.2 pg (26-34); Mean Corpuscular Volume 90.9 fl (80-100); Mean Platelet Volume 9.6 fl (7.4-10.4); Monocytes Absolute Auto 0.8 K/mm3 (0.1-0.6); Monocytes Percent Auto 8.6 % (2.6-8.5); Neutrophils Absolute Auto 7.7 K/mm3 (1.3-6.7); Platelet Count Result 262 k/mm3 (150-375); Red Blood Count 5.52 M/mm3 (4.2-5.4); Red Cell Distribution Width 15.2 % (11.5-14.5); White Blood Count 9.7 K/mm3 (4.5-10.0)
[2024-11-02 09:45] LABS: Blood Urea Nitrogen 22 mg/dL (8-26); Carbon Dioxide 28 mmol/L (22-30); Chloride 102 mmol/L (98-109); Estimated Glomerular Filt Rate > 60; Glucose 121 mg/dL (70-105); Ionized Calcium (POC) 1.23 mmol/L (1.11-1.31); Potassium 4.2 mmol/L (3.5-4.9); Sodium 141 mmol/L (138-146)
== END 2024-11-02 09:27 | disposition home or self-care (01) ==
LOC: ANHLAB 09:28
PROVIDERS: Visit Provider Internal Medicine Hematology & Oncology
DX: D75.1 Secondary polycythemia (principal)
CPT/HCPCS: 36415; 80047; 85025

== ENCOUNTER 2025-02-27 09:15 | Outpatient (CLI) | payer OTHER, SELFPAY ==
--- OUTSIDE RECORDS SUMMARY | 2025-02-27 09:36 | XMS_ITS | Referral Summary ---
Author Organization [facility] Address [address] [place] [address] Care Team Providers Care Exercise Science Internship Name Role Phone Raymon Ramirez MD Primary Care Provider [phone] Encounters Date Type Department Care Team Description 01/02/2025 Telephone [facility] Cardiology [address] [facility] [address] [place] [address] Claudette Salinas MD 12/21/2024 Telephone [facility] [address] [facility] [address] [place] [address] Emery Gutiérrez MD Med Refill from Last 3 Months Allergies No known active allergies Medications cholecalciferol (cholecalciferol ) 1,000 unit tablet 0 0 6 Active Additional Information Patient not taking.Reported on 10/22/2024 carbidopa-levodo pa (SINEMET) 25-100 mg per tablet Take 2 tablets at 6 a.m. and noon, 1 tablet at 6 p.m. 450 tablet 1 8 Active rosuvastatin (CRESTOR) 5 mg tablet Take 1 tablet (5 mg total) by mouth daily 2 Active cyanocobalamin (Vitamin B-12) 500 mcg tabletIndication s:Prevention of Vitamin B12 Deficiency Take 1 tablet (500 mcg total) by mouth daily Active levothyroxine (SYNTHROID) 112 mcg tablet Take 1 tablet (112 mcg total) by mouth daily 2 Active ascorbic acid 500 mg tablet 2 Active acyclovir (ZOVIRAX) 800 mg tablet Take 1 tablet (800 mg total) by mouth daily 2 Active ofloxacin (OCUFLOX) 0.3 % ophthalmic solution INSTILL 1 DROP INTO LEFT EYE EVERY HOUR DIRECTED 2 Active neomycin-polymyx in-dexAMETHasone (MAXITROL) 3.5mg/mL-10,000 unit/mL-0.1 % ophthalmic suspension INSTILL 1 DROP INTO LEFT EYE TWICE A DAY 2 Active metoprolol (LOPRESSOR) 100 mg tablet Take 1 tablet (100 mg total) by mouth 2 (two) times a day 120 tablet 2 4 Active amLODIPine (NORVASC) 5 mg tabletIndication s:Primary hypertension TAKE 1 TABLET (5 MG TOTAL) BY MOUTH DAILY. 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 Gender Identity Not on file Sexual Orientation [...] A M CDT Height 162.6 cm (5' 4) 10/22/2024 9:42 AM CDT Body Mass Index 27.15 10/22/2024 9:42 AM CDT Plan of Treatment Not on file Insurance [employer] Member Subscriber Plan / Payer ( fective 2018-Present) Name:Jing Garcias Relation to Subscriber:Self Name:Jing Garcias Payer ID:[id number] (NAIC) Type:MEDICARE RISK OTHER Address: [place] [id number] [employer] Member Subscriber Plan / Payer ( fective 2018-Present) Name:Jing Garcias Relation to Subscriber:Self Name:Jing Garcias Payer ID:[id number] (NAIC) Type:MEDICARE RISK OTHER Address: [place] [id number] Care Teams Exercise Science Internship Relationship Specialty Start Date End Date Raymon Ramirez MD PCP - General Family Practice 04/19/23
--- OUTSIDE RECORDS SUMMARY | 2025-02-27 09:36 | XMS_ITS | Clinical Summary ---
Author Organization [facility] [email or web address] Address [address] [place] [address] Care Team Providers Care Breakdown Man Name Role Phone Blayne Cordoba MD Unavailable Helder Gray MD Primary Care Provider [phone] Source Comments [facility],non-owned Affiliates and Associated Physician Practices is amultiple site organization consisting of ambulatory clinics and hospital sitesin [place], [place], [place] and [place]. This disclosure is being madepursuant to the Care Everywhere program and may not contain all information available regarding this patient. Last updated 18.[facility] [email or web address] Allergies No known active allergies Medications * Be aware that medications may not be up to date on this document. Alwaysverify current medications with the patient. carbidopa-levod opa (SINEMET) 25-100 MG tablet Take by mouth 3 times daily 2 tabs in am/ 1 at noon/ 1 at dinner Active levothyroxine (TIROSINT) 125 MCG capsule Take 125 mcg by mouth daily before breakfast Active hydrochlorothia zide (HYDRODIURIL) 25 MG tablet Take 25 mg by mouth once daily Active metoprolol tartrate (LOPRESSOR) 100 MG tablet Take 100 mg by mouth 2 times daily Active amLODIPine (NORVASC) 10 MG tablet TK 1 T PO D 3 6 Active azelastine (ASTELIN) 0.1 % nasal spray INSTIL 1 SPRAY INTO EACH NOSTRIL EVERY 12 HOURS 2 Active fluticasone propionate (FLONASE) 50 MCG/ACT nasal spray INSTILL 1-2 SPRAYS INTO EACH NOSTRIL TWICE DAILY 2 Active HYDROcodone-kevin taminophen (NORCO) 5-325 MG tablet TAKE 1 TABLET BY MOUTH TWICE A DAY NEEDED FOR PAIN 1 Active oxyCODONE-aceta minophen (PERCOCET) 5-325 MG tablet TAZKE 1-2 TABS BY MOUTH EVERY 4-6 HOURS NEEDED FOR PAIN 2 Active predniSONE (DELTASONE) 20 MG tablet Take 40 mg by mouth once daily 2 Active trimethoprim-po lymyxin B (POLYTRIM) 64355-5.1 UNIT/ML-% ophthalmic solution 2 Active XARELTO 20 MG tablet Take 20 mg by mouth once daily 2 Active rosuvastatin (CRESTOR) 5 MG tablet Take 5 mg by mouth once daily 2 Active moxifloxacin (VIGAMOX) 0.5 % ophthalmic solutionIndicat ions:Corneal ulcer of left eye Instill 1 (one) drop into left eye every 2 hours 3 mL 2 2 Active Ascorbic Acid (CVS VITAMIN C) 500 MG TABSIndications :Corneal ulcer of left eye TAKE 1 (ONE) TABLET BY MOUTH 2 TIMES DAILY FOR 30 DAYS 60 tablet 2 Active Active Problems Problem Noted Date Diagnosed [...] = 0.6 oz pur e alcohol) Comments No Sex and Gender Information Value Date Recorded Sex Assigned at Not on file Legal Sex Female 11:37 AM CDT Gender Identity Not on file Sexual [...] 8:50 AM CDT Height 162.6 cm (5' 4) 05/31/2016 8:50 AM CDT Body Mass Index [...] VACCINE ( - 2023-2 5 season) 2024 DEPRESSION SCREENING 08/01/2024 INFLUENZA VACCINE (#1) 2025 HEPATITIS B VACCINE Aged Out No longe [...] this topic Medical Devices Implanted Type Area Bulk Driver Device Identifier Shelf Expiration Date Model / Serial / Lot Cmnt Bone Co Hv 40gm Implanted:Qty: 1 on 05/31/2016 by Blayne Cordoba MD at [facility] Left: Knee [employer] [id number] 09/28/2017 [id number] / / [id number] Cmpnt Fem Kn Lt Cr Cmnt Prm Vngrd Intlk Implanted:Qty: 1 on 05/31/2016 by Blayne Cordoba MD at [facility] Left: Knee [employer] [id number] 07/04/2025 [id number] / / [id number] Tray Tib 71mm Kn Cocr I Beam Implanted:Qty: 1 on 05/31/2016 by Blayne Cordoba MD at [facility] Left: Knee [employer] [id number] 12/17/2025 [id number] / / [id number] Cmpnt Ptlr 28mm 1 Pg Wire Ascnt Arcm Kn Implanted:Qty: 1 on 05/31/2016 by Blayne Cordoba MD at [facility] Left: Knee [employer] [id number] 03/25/2021 [id number] / / [id number] Brng 82whx52xm Vngrd Arcm Kn Ant Stab Implanted:Qty: 1 on 05/31/2016 by Blayne Cordoba MD at [facility] Left: Knee [employer] [id number] 03/10/2021 [id number] / / [id number] Insurance MEDICARE [facility] MEDICARE [employer] MEDICARE [employer] MEDICARE Advance Directives * Full Code (Latest Code Status on File) Date Activated Date Inactivated Comments 05/31/2016 1:59 PM 06/04/2016 3:53 PM Care Teams Breakdown Man Relationship Specialty Start Date End Date Helder Gray MD [address] [place] [address] PCP - General Internal Medicine 10/09/21 [place] [id number] [address] Orthopedic Surgery 01/16/16
--- OUTSIDE RECORDS SUMMARY | 2025-02-27 09:36 | XMS_ITS | Clinical Summary ---
[facility] Address [address] [place] [address] Care Team Providers Care Energy Consultant Name Role Phone Raymon Ramriez MD Primary Care Provider [phone] Allergies No known active allergies Medications apixaban [...] Encounters Date Type Department Care Team Description 02/13/2025 External Device Data ST[facility] ABSTRACTION Provider, Abstract 02/13/2025 External Device Data [facility] ABSTRACTION Provider, Abstract 02/13/2025 External Device Data [facility] ABSTRACTION Provider, Abstract 02/12/2025 External Device Data [facility] ABSTRACTION Provider, Abstract 01/16/2025 External Device Data [facility] ABSTRACTION Provider, Abstract 01/15/2025 External Device Data [facility] ABSTRACTION Provider, Abstract 12/20/2024 External Device Data [facility] ABSTRACTION Provider, Abstract 12/19/2024 External Device Data [facility] ABSTRACTION Provider, Abstract 12/18/2024 External Device Data ST[facility] ABSTRACTION Provider, Abstract [...] Not Answered Alcohol Use Standard Drinks/Week Comments Not Currently [...] Sign Reading Time Taken Comments Blood Pressure 131/74 11/02/2024 9:51 AM CDT Pulse 68 11/02/2024 9:51 AM CDT Temperature 36.1 C (96.9 F) 11/02/2024 9:51 AM CDT Respiratory Rate 14 11/02/2024 9:51 AM CDT Oxygen Saturation 91% 11/02/2024 9:51 AM CDT Inhaled Oxygen Concentration - - Weight 70.3 kg (155 lb) 11/02/2024 9:51 AM CDT Height 162.6 cm (5' 4) 01/19/2024 10:16 AM CDT Body Mass Index 26.61 01/19/2024 10:16 AM CDT Plan of Treatment Upcoming Encounters Date Type Department Care Team (Late st Contact Info) Description 07/10/2025 11:30 AM THIRD COOK Office Visit [facility] Oncology and Hematology - [place] [address] [facility] [address] [place] [address] Robbin Agarwal MD [address] [facility] [address] [place] [address] Health Maintenance Due Date Last Done Comments DTAP/TDAP/TD VACCINES (1 - Tdap) 1960 PNEUMOCOCCAL VACCINE 50+ YEARS (1 of 1 - PCV) 08/17/18 92 ZOSTER VACCINE (1 of 2) 1991 OSTEOPOROSIS SCREENING 2006 RSV VACCINE (60+ or ) (1 - 1-dose 75+ series) 2016 INFLUENZA VACCINE (#1) 2025 Insurance [facility] MCR Care Teams Energy Consultant Relationship Specialty Start Date End Date Raymon Ramirez MD [address] [place] [id number] PCP - General Family Practice 01/02/24
--- OUTSIDE RECORDS SUMMARY | 2025-02-27 09:36 | XMS_ITS | Encounter Summary ---
Author Organization [facility] Address [address] [facility] [place] [address] Care Team Providers Care Mother Repairer Name Role Phone Blayne Cordoba MD Unavailable Helder Gray MD Primary Care Provider [phone] Reason for Visit * Reason Comments Refill Request Encounter Details Date Type Department Care Team (Late st Contact Info) Description 03/06/2022 Refill [facility] [address] [place] [address] Starla Pena MD No info available Refill [...] documented as of this encounter Functional Status * Is person deaf or have serious hearing difficulty? Answer Date of Assessment Author No 05/31/2016 3:49 PM Jesus Cárdenas RN * Is person blind or have serious difficulty seeing? Answer Date of Assessment Author No 05/31/2016 3:49 PM Jesus Cárdenas RN * Does person have serious difficulty walking/climbing stairs? Answer Date of Assessment Author Yes 05/31/2016 3:49 PM Jesus Cárdenas RN * Does person have difficulty dressing/bathing? Answer Date of Assessment Author No 05/31/2016 3:49 PM Jesus Cárdenas RN * Does person have difficulty doing errands alone? Answer Date of Assessment Author No 05/31/2016 3:49 PM Jesus Cárdenas RN documented as of this encounter Mental Status * Does person have difficulty concentrating/remembering/making decisions? Answer Entry Date Author No 05/31/2016 3:49 PM Jesus Cárdenas RN documented in this encounter Plan of Treatment Not on file documented as of this encounter Visit Diagnoses Diagnosis Corneal ulcer of left eye Corneal ulcer, unspecified documented in this encounter Care Teams Mother Repairer Relationship Specialty Start Date End Date Helder Gray MD [address] [place] [phone] PCP - General Internal Medicine 10/09/21 [place] [id number] [address] [address] Orthopedic Surgery 01/16/16 documented as of this encounter
--- OUTSIDE RECORDS SUMMARY | 2025-02-27 09:36 | XMS_ITS | Clinical Summary ---
Author Organization [facility] Address [address] [facility] [address] [place] [address] Care Team Providers Care Physicist [place] Name Role Phone Raymon Ramirez MD Primary Care Provider [phone] Allergies No known active allergies Medications cholecalciferol [...] Type Department Care Team Description 01/02/[address] [facility] Card[facility] [address] [place] [address] Claudette Salinas MD 12/21/[address] 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
--- OUTSIDE RECORDS SUMMARY | 2025-02-27 09:36 | XMS_ITS | Encounter Summary ---
Author Organization [facility] Address [address] [place] [address] Care Team Providers Care Hand Lacer Name Role Phone Blayne Cordoba MD Unavailable [phone] Helder Gray MD Primary Care Provider [phone] Reason for Visit * Reason Onset Date Comments MEDICATION REFILL 03/22/2022 Encounter Details Date Type Department Care Team (Late st Contact Info) Description 03/22/2022 Refill [facility] [address] [place] [phone] Benito Marquez MD [address] [place] [address] [place] [address] MEDICATION REFILL Social History Tobacco [...] of Assessment Author No 05/31/2016 3:49 PM CDT Jesus Amato RN * Is person blind or have serious difficulty seeing? Answer Date of Assessment Author No 05/31/2016 3:49 PM CDT Jesus Amato RN * Does person have serious difficulty [...] unspecified documented in this encounter Care Teams Hand Lacer Relationship Specialty Start Date End Date Helder Gray MD [address] [place] [address] PCP - General Internal Medicine 10/09/21 [place] [address] [address] Orthopedic Surgery 01/16/16 documented as of this encounter
--- NOTE | 2025-03-25 13:22 | WPDSLEEPSTUD ---
Sleep Study Date of Study: 02/27/25 Ordering Provider: Emery Ramesh MD Interpreting Physician: Tanya Martinez DO Sleep Study Type: Split Polysomnogram Height: 1.63 m Weight: 70.307 kg Body Mass Index: 26.6 Neck Circumference (inches): 13 [place]: 5 Reason for Sleep Study Daytime hypersomnia Sleep History The patient is an 84-year-old female who had a sleep study ordered by her gear room keeper for evaluation of sleep apnea. The patient rarely awakens from sleep short of breath. She rarely awakens at night with heartburn, belching, or cough. She denies snoring. She rarely has trouble sleeping when she has a cold. She denies waking up gasping for air throughout the night. She rarely has breathing problems at night observed by herself or others. She denies sweating excessively at night. She denies having heart palpitations or irregular heartbeats during the night. She occasionally falls asleep during the day but never while driving. She denies sleep paralysis, cataplexy, and hypnagogic-hypnopompic hallucinations. She denies having trouble at school or work due to sleepiness. She denies feeling afraid of going to sleep. She rarely has nightmares. She occasionally remembers her dreams. She rarely has thoughts racing through her mind. She denies feeling sad or depressed. She rarely has anxiety. She rarely has muscular tension. She denies noticing parts of her body jerk. She rarely has crawling and aching feelings in her legs but occasionally has leg pain during the night. She denies grinding her teeth during sleep and denies awakening with morning jaw pain. She is rarely bothered by pain during the day, but never awakened by pain during the night. She rarely wakes up feeling stiff in the morning. She occasionally wakes up with sore or aching muscles. She occasionally wakes up with pain in the neck, spine, and other joints. She goes to bed between 9 to 10 PM on weekdays and between 10 to 11 PM on the weekends. It takes her 10 to 20 minutes to fall asleep. She wakes up 1 to 2 times throughout the night for unknown reasons but is able to fall back asleep within 15 minutes. She wakes up between 6 to 6:30 AM every morning. She typically gets 9 hours of sleep per night. She will stay in bed for 10 minutes after waking up in the morning. She currently lives with her . She denies consuming any caffeinated beverages within 2 hours of bedtime. She denies engaging in physical exercise before bedtime. She denies watching television before falling asleep. She will take naps in the afternoon or the evening, but they are not refreshing. She consumes 1 caffeinated beverage per day. She denies tobacco, alcohol and recreational drug use. [facility] Past Medical History Medical History Arthritis of right knee Effusion, right knee Atherosclerosis of aorta Other thrombophilia Neoplasm of uncertain behavior of skin Anticoagulation adequate with anticoagulant therapy Plantar callus PND (post-nasal drip) Restrictive lung disease Compression fracture of L1 lumbar vertebra Systolic murmur Shortness of breath on exertion Essential hypertension Hyperlipidemia Hypothyroidism (acquired) Post-menopausal Surgical History Surgical History History of left shoulder replacement (~09/17/21) History of kyphoplasty (~01/2021) History of back surgery History of cholecystectomy History of left knee replacement History of surgery Fractured Arm (Steel Plate & 7 Screws) History of right shoulder replacement History of hysterectomy (~1984) Family History Family History Father Hypertension, Onset Age: 70 Cerebrovascular accident, Onset Age: 70 Mother Hypertension, Onset Age: 81 Cerebrovascular accident Sibling Asthma Family history of arthritis Family history of hearing loss Grandparent Family history of malignant neoplasm of breast in first degree relative Social History Social History Smoking status: Never smoker Second hand tobacco smoke exposure: No Alcohol intake: never Alcohol use details: STATES VERY RARELY - HOLIDAYS Substance use: never Substance use type: does not use Do You Feel Safe in your Home?: Yes Lack of Transportation: No Lack of Food: Never True Current Housing: I Have Housing Concerned About Future Housing: No Difficulty Paying Gas/Electric Bills: No Difficulty Paying for Meds: No Currently Unemployed: No Education: Decline to Answer Difficulty w/ Childcare or Family Care: No Living arrangements: with family Gender identity (if verbalized by the patient): Female Spiritual care concerns: No Medications Home Medications ?Medication ?Instructions ?Recorded ?Confirmed ?Type cholecalciferol (vitamin D3) 25 25 mcg PO QAM 02/09/21 10/30/24 History mcg (1,000 unit) capsule mecobalamin (vitamin B12) 1,000 1,000 mcg PO QAM 02/09/21 10/30/24 History mcg chewable tablet apixaban 2.5 mg tablet (Eliquis) 2.5 mg PO BID 05/18/23 10/30/24 History metoprolol tartrate 100 mg tablet 100 mg PO BID #180 tabs 07/19/24 10/30/24 Rx amlodipine 5 mg tablet 5 mg PO .daily 07/30/24 10/30/24 History rosuvastatin 5 mg tablet See Rx Instructions .Route 09/20/24 10/30/24 Rx .COMPLEX #90 tabs eszopiclone 2 mg tablet 2 mg PO QHS #1 tablet 01/21/25 01/21/25 Rx carbidopa 25 mg-levodopa 100 mg See Rx Instructions .Route 01/23/25 Rx tablet .COMPLEX #450 tabs levothyroxine 112 mcg tablet 112 mcg PO DAILY #90 tabs 01/23/25 Rx (Levo-T) furosemide 40 mg tablet (Lasix) 40 mg PO DAILY #90 tabs 02/15/25 Rx Sleep Procedure A full night split study using the [employer] multi-channel system recorded the standard physiologic parameters including EEG, EOG, submentalis EMG, anterior tibialis EMG, EKG, body position, nasal and oral airflow using nasal pressure sensor and thermistor.? Respiratory parameters of chest and abdominal movements were recorded with Respiratory Inductance Plethysmography belts. Oxygen saturation was recorded by pulse oximetry. Video monitoring was also performed. Sleep stages, periodic limb movements, and EEG arousals were scored in 30 second epochs according to the criteria of the AASM Scoring Manual. The Apnea-Hypopnea Index was calculated using CMS guidelines for definition of hypopnea with 4% O2 desaturations while scoring respiratory events. Sleep Architecture During the diagnostic portion of the study, the total recording time was 148.1 minutes. The total sleep time was 130.5 minutes. Sleep latency was 6.6 minutes.? REM sleep was not achieved during this portion of the study. Sleep Efficiency was 88.1%. The patient had 5 awakenings for an awakening index of 2.3. Wake after sleep onset time was 11.0 minutes. The patient spent 19.5 minutes, 14.9% of total sleep time in Stage N1. The patient spent 111.0 minutes, 85.1% in Stage N2. The patient spent 0.0 minutes, 0.0% in Stage N3. The patient spent 0.0 minutes, 0.0% in Stage REM sleep. At 12:00:22 AM the patient was placed on PAP treatment and was titrated at pressures ranging from 5 cm H20 up to 8 cm H20. During the treatment portion of the study, the total recording time was 362.4 minutes.? The total sleep time was 288.0 minutes. Sleep latency was 7.0 minutes. REM latency was 93.0 minutes. Sleep Efficiency was 79.5%. Wake after Sleep Onset time was 67.0 minutes. The patient spent 51.0 minutes, 17.7% of total sleep time in Stage N1. The patient spent 173.5 minutes, 60.2% in Stage N2. The patient spent 0.0 minutes, 0.0% in Stage N3. The patient spent 63.5 minutes, 22.0% in Stage REM. Respiratory Analysis During the diagnostic portion of the study, the patient had 12 hypopneas, 1 mixed apnea and 5 central apneas for an overall Apnea Hypopnea Index of 8.3 events per hour. The REM Apnea Hypopnea Index was 0. The NREM Apnea Hypopnea Index was 8.3. The patient had a Central Apnea Hypopnea Index of 2.3. There was no evidence of Jordan-Mcconnell Respirations. During the treatment portion of the study, the patient had 13 hypopneas, 2 obstructive apneas, 9 mixed apneas, and 7 central apneas for an overall Apnea Hypopnea Index of 6.5 events per hour. The REM Apnea Hypopnea Index was 15.1. The NREM Apnea Hypopnea Index was 4.0. The patient had a Central Apnea Hypopnea Index of 1.5. There was no evidence of Jordan-Mcconnell Respirations. The patient was started on CPAP 5 cm H2O and titrated to CPAP 8 cm H2O due to central/mixed apneas and hypopneas. The patient was able to fall asleep starting on CPAP 5 cm H2O. The patient was able to achieve REM sleep starting on CPAP 6 cm H2O. On CPAP 6 cm H2O, the patient spent 121 minutes in NREM and 35.5 minutes in REM with 2 obstructive apneas, 3 central apneas, 4 mixed apneas and 8 hypopneas, resulting in an AHI of 6.5. On CPAP 7 cm H2O, the patient spent 9 minutes in NREM and 28 minutes in REM with 2 central apneas, 4 mixed apneas and 3 hypopneas, resulting in an AHI of 14.6. The patient had a sleep efficiency of 97.2% on 6 cm H2O and 52.9% on 7 cm H2O. Arousals During the diagnostic portion of the study, there were a total of 73 arousals for an arousal index of 33.6.? There were 16 respiratory arousals for an index of 7.4. There were 25 periodic limb movement arousals for an index of 11.5.? There were 14 isolated limb movement arousals for an index of 6.4. There were 17 spontaneous arousals for an index of 7.8. During the treatment portion of the study, there were a total of 219 arousals for an index of 45.6.? There were 30 respiratory arousals for an index of 6.3. There were 140 periodic limb movement arousals for an index of 29.2.? There were 24 isolated limb movement arousals for an index of 5.0. There were 26 spontaneous arousals for an index of 5.4. Periodic Limb Movements During the diagnostic portion of the study, the patient had 27 isolated limb movements with an index of 12.4. The patient had 40 periodic limb movements with an index of 18.4, which is elevated (normal <15). The patient had a total of 67 limb movements with a total limb movement index of 30.8. During the treatment portion of the study, the patient had 45 isolated limb movements with an index of 9.4. The patient had 253 periodic limb movements with an index of 52.7, which is elevated (normal <15). The patient had a total of 298 limb movements with a total limb movement index of 62.1. Oximetry Data During the diagnostic portion of the study, the patient had an average oxygen saturation of 85.1% in wake with a minimum oxygen saturation of 71% and a maximum oxygen saturation of 99%. The patient had an average oxygen saturation of 87.9% in sleep with a minimum oxygen saturation of 76.0% and a maximum oxygen saturation of 94.0%. The patient had 24 oxygen desaturations resulting in an Oxygen Desaturation Index of 11.0. The patient spent67.8 minutes, 46.5% of total sleep time with an oxygen saturation less than 88%. During the treatment portion of the study, the patient had an average oxygen saturation of 91.0% in wake with a minimum oxygen saturation of 84.0% and a maximum oxygen saturation of 98.0%. The patient had an average oxygen saturation of 89.6% in sleep with a minimum oxygen saturation of 84.0% and a maximum oxygen saturation of 96.0%. The patient had 62 oxygen desaturations resulting in an Oxygen Desaturation Index of 12.9. The patient spent 85.6 minutes, 23.7% of total sleep time with an oxygen saturation less than 88%. Snoring Profile Snoring was not present throughout the entire study. Cardiac Profile The EKG lead showed atrial fibrillation with rare PVCs. During the diagnostic portion of the study, the average pulse rate was 66.9 bpm.? The minimum pulse rate was 48.0 bpm. The maximum pulse rate was 104.0 bpm. During the treatment portion of the study, the average pulse rate was 64.9 bpm.? The minimum pulse rate was 45.0 bpm. The maximum pulse rate was 84.0 bpm. EEG Profile No signs of seizure activity seen. Assessment and Plan Assessment and Plan (1) ERNESTO (obstructive sleep apnea): Code(s): G47.33 - Obstructive sleep apnea (adult) (pediatric) Status: Acute Assessment and Plan: In the baseline portion of the study, the patient had an overall AHI of 8.3 with desaturation down to 76%. This is consistent with mild sleep apnea. The patient was started on supplemental oxygen during the baseline portion of the study due to nocturnal hypoxemia in the absence of respiratory events. Due to the patient's atrial fibrillation, she qualifies for treatment. The patient was started on CPAP 5 cm H2O and titrated to CPAP 8 cm H2O due to central/mixed apneas and hypopneas. I recommend that the patient be prescribed CPAP 7 cm H2O without EPR along with 1 lpm of O2, size small Resmed AirTouch F20 full face mask, CPAP filters/tubing and heated humidity. I also recommend doing nocturnal oximetry 2 weeks after the patient has been on CPAP w/ O2 to ensure that her hypoxemia has resolved. This should be used with all episodes of sleep.? Compliance should be reviewed within 31-90 days of starting therapy for usage greater than 4 hours per night greater than 70% of the nights. The patient should be asked about symptoms such as?excessive daytime sleepiness, quality of sleep, decreased nocturia, increased?mental functioning such as memory, mood, and concentration. While the patient had a significant amount of periodic limb movements seen during the study, the frequency drastically decreased once the patient was titrated to the optimal pressure setting. I recommend asking the patient about leg movements during her first CPAP compliance visit. Data The data obtained during this sleep study is adequate for interpretation. Certification This sleep study has been reviewed by a board certified sleep medicine physician.
[2025-03-25 16:20] VITALS: BMI 26.6
== END 2025-02-28 06:36 | disposition home or self-care (01) ==
LOC: ANHCSM 09:19
PROVIDERS: PCP Nurse Practitioner Family; Visit Provider Internal Medicine Pulmonary Disease
DX: G47.10 Hypersomnia, unspecified (principal); G47.33 Obstructive sleep apnea (adult) (pediatric)
CPT/HCPCS: 95811

== ENCOUNTER 2025-07-30 17:20 | Emergency (ER) | payer OTHER, SELFPAY ==
--- NOTE | ~2025-07-30 | XR_ITS ---
EXAMINATION: XR chest 2V DATE: 07/30/2025 18:11 INDICATION: Cough and shortness of breath TECHNIQUE: frontal and lateral views of the chest were obtained. COMPARISON: Chest radiograph dated 08/16/2024 FINDINGS: Cardiomegaly. Mild infrahilar opacity left lower lung zone and at the left costophrenic angle which could represent atelectasis or pneumonia. No pleural effusion or pneumothorax. Calcified right hilar lymph nodes consistent with old granulomatous disease. [Reverse total shoulder arthroplasty. There is a right shoulder arthroplasty with osteolysis at the right glenoid. Mild lower thoracic levocurvature with severe spondylosis. L1 vertebroplasty. IMPRESSION: 1. Mild opacity left lower lung zone which could represent atelectasis or pneumonia. 2. Cardiomegaly. Reviewed, dictated and finalized at location A. [facility] IMPRESSION: 1. Mild opacity left lower lung zone which could represent atelectasis or pneum onia. 2. Cardiomegaly.
[2025-07-30 17:37] VITALS: BP 168/80; PULSE 103; RESP 16; TEMP 35.8; O2SAT 94
--- NOTE | 2025-07-30 17:50 | ED.URI ---
HPI - URI/Sore Throat General Chief Complaint: Upper Respiratory Infection Stated Complaint: Cough/Congestion Time Seen by Provider: 07/30/25 17:24 Source: patient Mode of arrival: ambulatory Limitations: no limitations History of Present Illness HPI Narrative: Jing is a an 84-year-old female patient presenting to the clinic today with complaints of cough, nasal congestion, and chest congestion times 1.5 weeks. She reports she is coughing up yellow phlegm. Does feel short of breath at times-mostly with exertion. History of pneumonia in the past. Denies any known fevers, chills, body aches. History of restrictive lung disease and she wears a CPAP. Related Data Home Medications ?Medication ?Instructions ?Recorded ?Confirmed ?Last Taken ?Type cholecalciferol (vitamin D3) 25 25 mcg PO QAM 02/09/21 07/05/25 07/30/24 History mcg (1,000 unit) capsule mecobalamin (vitamin B12) 1,000 1,000 mcg PO QAM 02/09/21 07/05/25 07/30/24 History mcg chewable tablet apixaban 2.5 mg tablet (Eliquis) 2.5 mg PO BID 05/18/23 07/05/25 07/30/24 History amlodipine 5 mg tablet mg 07/30/25 Unknown History Allergies Allergy/AdvReac Type Severity Reaction Status Date / Time No Known Allergies Allergy Verified 07/30/25 17:58 Review of Systems Review of Systems: Pertinent positives per HPI. Patient denies any fever, chills, rash, headache, visual changes, dizziness, chest pain, palpitations, nausea, vomiting, diarrhea, constipation, abdominal pain, or any urinary issues. [facility] Past Medical History Medical History Callus of foot Arthritis of right knee Effusion, right knee Atherosclerosis of aorta Other thrombophilia Neoplasm of uncertain behavior of skin Anticoagulation adequate with anticoagulant therapy Plantar callus PND (post-nasal drip) Restrictive lung disease Compression fracture of L1 lumbar vertebra Systolic murmur Shortness of breath on exertion Essential hypertension Hyperlipidemia Hypothyroidism (acquired) Post-menopausal Surgical History Surgical History History of left shoulder replacement (~09/17/21) History of kyphoplasty (~01/2021) History of back surgery History of cholecystectomy History of left knee replacement History of surgery Fractured Arm (Steel Plate & 7 Screws) History of right shoulder replacement History of hysterectomy (~1984) Family History Family History Father Hypertension, Onset Age: 70 Cerebrovascular accident, Onset Age: 70 Mother Hypertension, Onset Age: 81 Cerebrovascular accident Sibling Asthma Family history of arthritis Family history of hearing loss Grandparent Family history of malignant neoplasm of breast in first degree relative Social History Social History Smoking status: Never smoker Second hand tobacco smoke exposure: No Alcohol intake: never Alcohol use details: STATES VERY RARELY - [place] Substance use: never Substance use type: does not use Lack of Transportation: No Lack of Food: Never True Current Housing: I Have Housing Concerned About Future Housing: No Difficulty Paying Gas/Electric Bills: No Difficulty Paying for Meds: No Currently Unemployed: No Education: Decline to Answer Difficulty w/ Childcare or Family Care: No Living arrangements: with family Gender identity (if verbalized by the patient): Female Spiritual care concerns: No Comments At the time of my signature, I reviewed and agree with the nursing past medical, surgical, social, and family history. There is no relevant family history pertinent to the patient complaint. Exam Narrative: General: Well-developed, well nourished, in no apparent distress Head: Normocephalic, atraumatic Eyes: Pupils equally round and reactive to light bilaterally, EOM intact, sclera and conjunctive clear, no discharge, lids normal Ears: TMs intact and congested, ear canals clear, no drainage, grossly hearing normal. Nose: Nares patent, yellow nasal discharge, moderate inflammation, maxillary sinus tenderness. Mouth: Oral pharynx without lesions or masses, good dentition, MMM. Neck: Supple, trachea midline, no enlargement of anterior or posterior cervical nodes, no thyroid masses or goiter palpable. Cardio: Regular rate and rhythm, s1 and s2 normal, no murmur appreciated. Resp: Lung sounds diminished, no rhonchi, rales, wheezing or rubs Course Course Level of Care: Express Care Visit Vital Signs Vital signs: Vital Signs Temperature 35.8 C L 07/30/25 17:37 Pulse Rate 103 H 07/30/25 17:37 Respiratory Rate 16 07/30/25 17:37 Blood Pressure 168/80 H 07/30/25 17:37 Pulse Oximetry 94 07/30/25 17:37 Oxygen Delivery Room Air 07/30/25 17:37 Temperature 35.8 C L 07/30/25 17:37 Pulse Rate 103 H 07/30/25 17:37 Respiratory Rate 16 07/30/25 17:37 Blood Pressure 168/80 H 07/30/25 17:37 Pulse Oximetry 94 07/30/25 17:37 Oxygen Delivery Room Air 07/30/25 17:37 MDM MDM Narrative Medical decision making narrative: At the time of visit patient is resting comfortably on the exam table. Patient appears to be nontoxic. Complaints of cough, nasal congestion, and chest congestion times 1.5 weeks. She reports she is coughing up yellow phlegm. Does feel short of breath at times-mostly with exertion. History of pneumonia in the past. Denies any known fevers, chills, body aches. On exam patient has clear bilateral TMs intact, yellow nasal drainage, moderate anterior turbinate inflammation, maxillary sinus tenderness, lung sounds diminished, heart rates slightly tachycardic Diagnostics: Chest x-ray was performed and shows possible left lower lobe pneumonia versus atelectasis. Plan: Will cover patient for left lower lobe pneumonia and sinusitis. Prescriptions for azithromycin, Augmentin, and albuterol inhaler was sent to the pharmacy. Recommend checking her oxygen saturations and if she goes below 92% take her to the emergency room. Has been and patient voiced understanding. Supportive measures were discussed with the patient and they voiced understanding discharge instructions and agrees to treatment plan. Return precautions reviewed Differential Diagnosis Differential Diagnosis: Differential diagnostic considerations for upper respiratory infection include upper respiratory infection, croup, otitis media, sinusitis, viral infection, bronchitis, influenza, pharyngitis, strep, uvulitis. Imaging Data Radiologist's impression: ITS Impressions Chest X-Ray 07/30/25 18:17 IMPRESSION: 1. Mild opacity left lower lung zone which could represent atelectasis or pneumonia. 2. Cardiomegaly. Discharge Plan Discharge Clinical Impression: Left lower lobe pneumonia Qualifiers: Pneumonia type: due to unspecified organism Qualified Code(s): J18.9 - Pneumonia, unspecified organism Sinusitis Qualifiers: Sinusitis location: maxillary Chronicity: acute Recurrence: non-recurrent Qualified Code(s): J01.00 - Acute maxillary sinusitis, unspecified Patient Disposition: Home Condition: Stable Instructions: Antibiotic Form, Sinusitis (ED), Pneumonia (ED) Additional Instructions: Chest x-ray shows possible left lower lobe pneumonia versus atelectasis If patient's oxygen saturation goes below 92% recommend going to the ED for further evaluation. Take prescription medications only as prescribed-Augmentin, azithromycin, and albuterol inhaler Increase fluids and stay well hydrated May take Tylenol as directed on bottle for pain/fever May use Flonase 1 spray in each nare daily May take OTC antihistamines such as Zyrtec or Claritin daily as directed on bottle May apply Vicks vapor rub to chest to open sinuses Sinus rinses for congestion Cepacol spray, cough drops, throat lozenges, warm tea with honey/lemon, gargle salt water to soothe throat BRAT diet for diarrhea Clear liquids x 24 hours then advance as tolerated for nausea/vomiting Go to the ED if you develop a worsening in your condition- high fever not controlled by Tylenol or Motrin, dehydration, weakness, lethargy, shortness of breath, or chest pain. Follow up with your PCP in 3-5 days if symptoms persist. Patient Language: Macedonian Prescriptions: New azithromycin 250 mg tablet See Rx Instructions .ROUTE .COMPLEX Qty: 6 0RF Rx Instructions: For 250 mg dose pack: take 500 mg today (day 1), then 250 mg for 4 days (days 2-5) albuterol sulfate 90 mcg/actuation HFA aerosol inhaler 2 puff inhalation Q4-6H PRN (Reason: shortness of breath or wheezing) 30 Days Qty: 8.5 0RF amoxicillin-pot clavulanate 875-125 mg tablet 1 tablet PO Q12H 7 Days Qty: 14 0RF No Action amlodipine 5 mg tablet Eliquis 2.5 mg tablet 2.5 mg PO BID cholecalciferol (vitamin D3) 25 mcg (1,000 unit) capsule 25 mcg PO QAM mecobalamin (vitamin B12) 1,000 mcg tablet,chewable 1,000 mcg PO QAM metoprolol tartrate 100 mg tablet 100 mg PO BID Qty: 180 1RF Rx Instructions: TAKE 1 TABLET BY MOUTH TWICE A DAY carbidopa-levodopa 25-100 mg tablet See Rx Instructions .ROUTE .COMPLEX Qty: 450 1RF Dose Instruction: TAKE 2 TABLETS BY MOUTH AT 6 AM AND 2 TABLETS BY MOUTH AT NOON, THEN 1 TABLET BY MOUTH AT NIGHT Rx Instructions: TAKE 2 TABLETS BY MOUTH AT 6 AM AND 2 TABLETS BY MOUTH AT NOON, THEN 1 TABLET BY MOUTH AT NIGHT levothyroxine [Levo-T] 112 mcg tablet 112 mcg PO DAILY Qty: 90 1RF furosemide [Lasix] 40 mg tablet 40 mg PO DAILY Qty: 90 1RF rosuvastatin 5 mg tablet See Rx Instructions .ROUTE .COMPLEX Qty: 90 1RF Dose Instruction: TAKE 1 TABLET BY MOUTH EVERY DAY Rx Instructions: TAKE 1 TABLET BY MOUTH EVERY DAY Follow-up/Referrals: Evita Charlton APRN [Primary Care Provider, Internal Medicine] Time of Disposition: 18:30 Quality NIHSS Nursing Documentation ED NIHSS nursing documentation: reviewed/agree
== END 2025-07-30 18:38 | disposition home or self-care (01) ==
PROVIDERS: Emergency Provider Nurse Practitioner Family; PCP Nurse Practitioner Family
DX: J18.1 Lobar pneumonia, unspecified organism (principal); J01.00 Acute maxillary sinusitis, unspecified; I10 Essential (primary) hypertension; E78.5 Hyperlipidemia, unspecified; E03.9 Hypothyroidism, unspecified; R01.1 Cardiac murmur, unspecified; I70.0 Atherosclerosis of aorta; J98.4 Other disorders of lung; M17.11 Unilateral primary osteoarthritis, right knee; Z85.828 Personal history of other malignant neoplasm of skin; Z96.612 Presence of left artificial shoulder joint; Z96.611 Presence of right artificial shoulder joint; Z96.652 Presence of left artificial knee joint
CPT/HCPCS: 71046; 99213; G0463